=== PATIENT | female | born 1970 | race Two or more races ===

== ENCOUNTER 2020-06-29 12:42 | Outpatient (REF) | payer OTHER, SELFPAY ==
[2020-06-29 14:10] LABS: Glucose Urine UA NEG (NEG); Leukocyte Esterase Urine TRACE (NEG); Nitrite Urine NEG (NEG); Specific Gravity - Urine 1.025 (1.005-1.025); Urine Blood 2+ (NEG); Urine Ketones NEG (NEG); Urine Protein NEG (NEG-TRACE)
[2020-06-29 14:11] LABS: MANUAL DIFF FLAG NO
[2020-06-29 14:11] LABS: Appearance Urine CLEAR; Color Urine YELLOW
[2020-06-29 14:16] LABS: Basophils Percent Auto 0.5 % (0-2); Eosinophils Absolute Auto 0.2 X10*3/uL (0.0-0.4); Eosinophils Percent Auto 2.2 % (0-4); Hematocrit 37.3 % (37-47); Hemoglobin 11.5 g/dl (12.0-16.0); Imm Gran Abs Auto 0.03 X10*3/uL (0.00-0.03); Imm Gran Pct Auto 0.3 % (0.0-0.4); Lymphocytes Absolute Auto 1.3 X10*3/uL (1.2-4.9); Lymphocytes Percent Auto 14.6 % (20-40); Mean Corpuscular HGB Conc 30.8 g/dl (31.0-35.0); Mean Corpuscular Hemoglobin 26.6 pg (27.0-33.0); Mean Corpuscular Volume 86.1 fL (80-98); Mean Platelet Volume 10.4 fL (9.4-12.3); Monocytes Absolute Auto 0.4 X10*3/uL (0.1-1.2); Monocytes Percent Auto 4.6 % (2-11); Neutrophils Absolute Auto 6.8 X10*3/uL (2.0-8.3); Neutrophils Percent Auto 77.8 % (45-73); Platelet Count 412 X10*3/uL (160-400); Red Blood Count 4.33 X10*6/uL (4.20-5.50); Red Cell Distribution Width 14.6 % (11.0-16.0); White Blood Count 8.7 X10*3/uL (4.8-10.8)
[2020-06-29 14:25] LABS: Mucus Urine TRACE /LPF; Squamous Epithelial Cell Urine 1+ /LPF
[2020-06-29 14:41] LABS: Alanine Aminotransferase 20 U/L (0-31); Albumin Level 4.2 g/dL (3.5-5.0); Alkaline Phosphatase 98 U/L (39-117); Anion Gap 14 (12-20); Aspartate Amino Transferase 16 U/L (5-31); Bilirubin Total 0.4 mg/dL (0.0-1.0); Blood Urea Nitrogen 12 mg/dL (9-16); C Reactive Protein 1.34 mg/dL (< or = 0.50); Calcium 9.5 mg/dL (8.4-10.2); Carbon Dioxide 27 mmol/L (22-29); Chloride 104 mmol/L (96-108); Cholesterol 261 mg/dL; Estimated Glomerular Filt Rate > 60; Glucose Fasting 80 mg/dL (60-99); HDL Cholesterol 52 mg/dL; LDL Cholesterol Calculated 151 mg/dl; Potassium 4.7 mmol/l (3.3-5.1); Sodium 140 mmol/L (135-145); Total Protein 7.8 g/dL (6.5-8.0); Triglycerides 290 mg/dL
[2020-06-29 15:06] LABS: Vitamin D 25-OH Total 32.9 ng/mL (>30)
[2020-06-29 15:15] LABS: Erythrocyte Sedimentation Rate 41 MM/HR (0-20)
== END 2020-06-29 12:43 | disposition home or self-care (01) ==
LOC: HO.LAB 12:42
PROVIDERS: PCP Internal Medicine; Visit Provider Internal Medicine
DX: Z00.00 Encounter for general adult medical examination without abnormal findings (principal); E78.00 Pure hypercholesterolemia, unspecified; M15.9 Polyosteoarthritis, unspecified; M47.899 Other spondylosis, site unspecified; K56.600 Partial intestinal obstruction, unspecified as to cause; G43.909 Migraine, unspecified, not intractable, without status migrainosus; E55.9 Vitamin D deficiency, unspecified; E66.9 Obesity, unspecified
CPT/HCPCS: 36415; 80053; 80061; 81001; 82306; 84443; 85025; 85652; 86140; 87086

== ENCOUNTER → 2020-07-06 08:56 | Outpatient (BNVA) | payer OTHER, SELFPAY | PROVIDERS: Visit Provider Student in an Organized Health Care Education/Training Program | DX: Z76.89 Persons encountering health services in other specified circumstances (principal) ==

== ENCOUNTER 2020-07-20 09:13 | Day surgery (SDC) | payer OTHER, SELFPAY ==
[2020-07-15 11:35] VITALS: BMI 37.4
--- NOTE | 2020-07-19 09:11 | HO.ANESPROP2 ---
Documented by User: Gisela Conway 07/19/20 09:13 HPI - Anesthesia Eval Consult details Narrative: 50yo F for Upper Endoscopy PMFSH Past Medical History Medical History (Updated 07/15/20 @ 11:34 by Denise Graham) Abdominal pain Allergic rhinitis Bipolar depression HLA-B27 spondyloarthropathy Hx of small bowel obstruction Insomnia Lumbar spondylosis Migraine Mild intermittent asthma without complication Obesity (BMI 30-39.9) Osteoarthritis of multiple joints Primary osteoarthritis of right hip Pure hypercholesterolemia Vitamin D deficiency Family History Family History Father Kidney problem Diabetes Mother Kidney malignancy Diabetes Brother Asthma Diabetes Surgical History Surgical History (Updated 07/15/20 @ 11:34 by Denise Graham) History of carpal tunnel surgery History of extraction of renal calculus History of hand surgery History of hysterectomy Hx of cholecystectomy Hx of colonoscopy Hx of cystoscopy Hx of removal of ovary Hx of unilateral oophorectomy Social History Social History (Updated 07/15/20 @ 11:35 by Denise Graham) Alcohol intake: never Smoking Status: Never smoker Use of substances other than those prescribed or required for medical reasons: No Advance Directives: No Advance Directives Information Provided: No Advance Directives on File: No Meds Allergies Allergy/AdvReac Type Severity Reaction Status Date / Time Iodinated Contrast Media Allergy Intermediate HIVES Verified 07/11/20 21:41 [IV CONTRAST] peanut [PEANUTS] Allergy Intermediate HIVES Verified 07/11/20 21:41 shellfish derived Allergy Intermediate HIVES Verified 07/11/20 21:41 [SHELLFISH DERIVED] Penicillins [PENICILLINS] Allergy Unknown HIVES Verified 07/11/20 21:41 Home Medications Medication Instructions Recorded Confirmed Type albuterol sulfate 90 mcg/actuation 2 puff INHALATION Q4-6H PRN 07/06/20 07/15/20 History aerosol inhaler cetirizine 10 mg tablet 10 mg PO DAILY 07/06/20 07/15/20 History clonazepam 1 mg tablet 1 mg PO BID 07/06/20 07/15/20 History duloxetine 60 mg capsule,delayed 60 mg PO DAILY 07/06/20 07/15/20 History release fluticasone propionate 220 1 puff INHALATION BID 07/06/20 07/15/20 History mcg/actuation HFA aerosol inhaler lifitegrast 5 % eye drops in a 1 drp OPHTHALMIC (EYE) BID 07/06/20 07/15/20 History dropperette montelukast 10 mg tablet 10 mg PO DAILY 07/06/20 07/15/20 History naratriptan 2.5 mg tablet See Rx Instructions PO .COMPLEX 07/06/20 07/15/20 History travoprost 0.004 % eye drops 1 drp OPHTHALMIC (EYE) QPM 07/06/20 07/15/20 History zolpidem 10 mg tablet 10 mg PO BEDTIME PRN 07/06/20 07/15/20 History atorvastatin 20 mg tablet 20 mg PO DAILY 07/07/20 07/15/20 History famotidine 20 mg tablet 20 mg PO BID 07/07/20 07/15/20 History cholecalciferol (vitamin D3) 25 mcg PO DAILY 07/15/20 07/15/20 History [Vitamin D3] Exam Exam Date and Time: July 19, 2020 0911 Height,Weight and Vital Signs: Height 5 ft 1 in Weight 89.811 kg Pertinent Lab Results Pertinent Lab Results: Laboratory Tests 06/29/20 06/29/20 13:02 13:02 WBC 8.7 Hgb 11.5 L Hct 37.3 Plt Count 412 H Sodium 140 Potassium 4.7 Chloride 104 Carbon Dioxide 27 BUN 12 Creatinine 0.68 Assessment and Plan Assessment Anesthesia Assessment: Chart Reviewed Documented by User: Karolina Gamble 07/20/20 09:48 [facility] Past Medical History Medical History (Updated 07/15/20 @ 11:34 by Denise Graham) Abdominal pain Allergic rhinitis Bipolar depression HLA-B27 spondyloarthropathy Hx of small bowel obstruction Insomnia Lumbar spondylosis Migraine Mild intermittent asthma without complication Obesity (BMI 30-39.9) Osteoarthritis of multiple joints Primary osteoarthritis of right hip Pure hypercholesterolemia Vitamin D deficiency Family History Family History Father Kidney problem Diabetes Mother Kidney malignancy Diabetes Brother Asthma Diabetes Surgical History Surgical History (Updated 07/15/20 @ 11:34 by Denise Graham) History of carpal tunnel surgery History of extraction of renal calculus History of hand surgery History of hysterectomy Hx of cholecystectomy Hx of colonoscopy Hx of cystoscopy Hx of removal of ovary Hx of unilateral oophorectomy Social History Social History (Updated 07/15/20 @ 11:35 by Denise Graham) Alcohol intake: never Smoking Status: Never smoker Use of substances other than those prescribed or required for medical reasons: No Advance Directives: No Advance Directives Information Provided: No Advance Directives on File: No Meds Allergies Allergy/AdvReac Type Severity Reaction Status Date / Time Iodinated Contrast Media Allergy Intermediate HIVES Verified 07/11/20 21:41 [IV CONTRAST] peanut [PEANUTS] Allergy Intermediate HIVES Verified 07/11/20 21:41 shellfish derived Allergy Intermediate HIVES Verified 07/11/20 21:41 [SHELLFISH DERIVED] Penicillins [PENICILLINS] Allergy Unknown HIVES Verified 07/11/20 21:41 Home Medications Medication Instructions Recorded Confirmed Type albuterol sulfate 90 mcg/actuation 2 puff INHALATION Q4-6H PRN 07/06/20 07/15/20 History aerosol inhaler cetirizine 10 mg tablet 10 mg PO DAILY 07/06/20 07/15/20 History clonazepam 1 mg tablet 1 mg PO BID 07/06/20 07/15/20 History duloxetine 60 mg capsule,delayed 60 mg PO DAILY 07/06/20 07/15/20 History release fluticasone propionate 220 1 puff INHALATION BID 07/06/20 07/15/20 History mcg/actuation HFA aerosol inhaler lifitegrast 5 % eye drops in a 1 drp OPHTHALMIC (EYE) BID 07/06/20 07/15/20 History dropperette montelukast 10 mg tablet 10 mg PO DAILY 07/06/20 07/15/20 History naratriptan 2.5 mg tablet See Rx Instructions PO .COMPLEX 07/06/20 07/15/20 History travoprost 0.004 % eye drops 1 drp OPHTHALMIC (EYE) QPM 07/06/20 07/15/20 History zolpidem 10 mg tablet 10 mg PO BEDTIME PRN 07/06/20 07/15/20 History atorvastatin 20 mg tablet 20 mg PO DAILY 07/07/20 07/15/20 History famotidine 20 mg tablet 20 mg PO BID 07/07/20 07/15/20 History cholecalciferol (vitamin D3) 25 mcg PO DAILY 07/15/20 07/15/20 History [Vitamin D3] Exam Airway Mallampati Class: I ([place] top front) TM Dist: >3cm Neck ROM: Full Heart: RrR Lungs: CtA BL Assessment and Plan Assessment Anesthesia Assessment: Anesthesia Plan Discussed and Chart Reviewed Final Anesthetic Review NPO: Yes (Sip water with meds) ASA Class: III Final Preanesthetic Review: Meds/Allgs Chart Reviewed and Consent Obtained/Reviewed Patient Risk: Intermediate Procedure Risk: Intermediate Anesthetic Plan Anesthetic Plan: MAC: Disposition: Standard PACU
[2020-07-20 09:53] VITALS: BP 126/88; PULSE 83; RESP 16; TEMP 37.2; O2SAT 99
--- NOTE | 2020-07-20 09:56 | MHC.SHP ---
Pre-Procedural Eval Section B Chief Complaint: Abdominal Pain Details of Present Illness: 50 yo female with midepigastric pain and bilater upper abdominal pains. She states this in now worse. She is also having rectal bleeding and urgency which she DID NOT have on her 05/05-visit(nor did she call to tell me this.) Having Urology eval as well. Relevant Family History (Specify if Yes): No Relevant Social History: None Present Medications: see Short Stay Collaborative assessment Medical History: Significant History (obesity, Bipolar disorder, asthma,S/Pcervical ca-radiation treatment.) History of Previous Operations: No relevant previous surgery (not for this procedure, GB is out) Allergies: Allergies Allergy/AdvReac Type Severity Reaction Status Date / Time Iodinated Contrast Media Allergy Intermediate HIVES Verified 07/11/20 21:41 [IV CONTRAST] peanut [PEANUTS] Allergy Intermediate HIVES Verified 07/11/20 21:41 shellfish derived Allergy Intermediate HIVES Verified 07/11/20 21:41 [SHELLFISH DERIVED] Penicillins [PENICILLINS] Allergy Unknown HIVES Verified 07/11/20 21:41 Review of Systems Sugical H&P ROS: Negative: Cardiovascular and Yes, Specify: Constitution (Pain, pain), Respiratory (known asthma), Psychiatric (bipolar disorder) and Gastrointestinal Review of Systems Comment: She now says she is having daily rectal bleeding--will continue to evaluate. Exam Surgical H&P Exam: Normal: Heart and Normal: Lungs and Significant Findings: Abdomen (obesity central) Plan Diagnosis/Plan: Unchanged Patient has been examined and remains a candidate for the planned procedure yes--egd.
[2020-07-20] MEDS: Lactated Ringers 1,000 ML 100 ML IVCONT (10:01)
--- NOTE | 2020-07-20 10:24 | PM.OP ---
Brief Operative Note Date of Service: 07/20/20 Pre-op diagnosis: Abdominal pain , every day Post-op diagnosis: other (Super ficial gastritis, ? component of bile reflux.) Procedure: EGD with biopsy Implants: none Surgeon: Luiza Bella MD Anesthesia: MAC (md Tye) Estimated blood loss (mL): 5 Pathology: other (Duodenal, gastric) Condition: stable Disposition: PACU
[2020-07-20 10:25] VITALS: BP 105/63; PULSE 85; RESP 14; TEMP 37.1; O2SAT 97
[2020-07-20 10:40] VITALS: BP 123/71; PULSE 78; RESP 19; TEMP 37.1; O2SAT 97
[2020-07-20 11:04] VITALS: BP 127/71; PULSE 78; RESP 16; TEMP 36.6; O2SAT 99
--- NOTE | 2020-07-20 11:37 | HO.POSTANES ---
Post Anesthesia Evaluation Post Anesthesia Evaluation Vital Signs: Vital Signs Temp Pulse Resp BP Pulse Ox 07/20/20 11:04 98 F 78 16 127/71 99 07/20/20 10:40 98.7 F 78 19 123/71 97 07/20/20 10:25 98.7 F 85 14 105/63 97 07/20/20 09:53 99.0 F 83 16 126/88 99 Anesthesia: Monitored Mental Status: Awake Pain Control: Satisfactory Nausea/Vomiting: None Hydration: Adequate Anesthesia-Related Issues: No Anes. Related Issues
[2020-07-20 11:44] LABS: MANUAL DIFF FLAG NO
[2020-07-20 11:48] LABS: Basophils Percent Auto 0.4 % (0-2); Eosinophils Absolute Auto 0.3 X10*3/uL (0.0-0.4); Eosinophils Percent Auto 2.5 % (0-4); Hematocrit 36.7 % (37-47); Hemoglobin 11.1 g/dl (12.0-16.0); Imm Gran Abs Auto 0.04 X10*3/uL (0.00-0.03); Imm Gran Pct Auto 0.4 % (0.0-0.4); Lymphocytes Absolute Auto 1.4 X10*3/uL (1.2-4.9); Lymphocytes Percent Auto 13.3 % (20-40); Mean Corpuscular HGB Conc 30.2 g/dl (31.0-35.0); Mean Corpuscular Hemoglobin 26.4 pg (27.0-33.0); Mean Corpuscular Volume 87.4 fL (80-98); Mean Platelet Volume 10.6 fL (9.4-12.3); Monocytes Absolute Auto 0.5 X10*3/uL (0.1-1.2); Monocytes Percent Auto 4.7 % (2-11); Neutrophils Absolute Auto 8.5 X10*3/uL (2.0-8.3); Neutrophils Percent Auto 78.7 % (45-73); Platelet Count 328 X10*3/uL (160-400); Red Cell Distribution Width 14.6 % (11.0-16.0); White Blood Count 10.8 X10*3/uL (4.8-10.8)
--- NOTE | 2020-07-20 11:59 | OP_ITS ---
SURGEON: Luiza Bella MD PROCEDURE PERFORMED: EGD with biopsy; digital rectal exam. ESTIMATED BLOOD LOSS: less 5cc COMPLICATIONS: No complications. ANESTHESIA: Monitored. ANESTHESIOLOGIST: Karolina Gamble MD ASSISTANTS: No assistant printer floor covering. SPECIMENS: Specimens removed; duodenal biopsy, gastric biopsies. PREOPERATIVE DIAGNOSES: Dyspepsia, pain in the mid epigastrium and bilateral upper quadrant pain. The patient does give a change in history, complaining of urgent bowel movements, reported diarrhea, and seeing blood with the bowel movements. This started about a week after I spoke with her in April. She did not notify the office. POSTOPERATIVE DIAGNOSES: Superficial gastritis, bile present in the stomach, A digital rectal was done on this visit, as had been discussed with patient preop. INVISIBLE BRACES ORTHODONTIST: Dr. Bella. CONDITION: Postprocedure, stable. FINDINGS: Video endoscope was introduced without difficulty. It was navigated into the posterior pharynx and into the esophagus. Esophageal mucosa was normal with slight tortuosity through the distal portion of the esophagus. GE junction was visualized. It was clear and distinct. On entering the stomach, gastric aspirate did have bile present. There was generalized erythema distal body and antrum. Scope was passed into the duodenal bulb and duodenum. There was one area with focal villous changes. Biopsies were done, duodenal and gastric. At the end of the endoscopic exam, I did a digital rectal exam: Sphincter tone was decreased. There was 0 to 1+ palpable internal hemorrhoids. There was soft, but solid stool in the rectal ampulla. No evidence of blood on the glove. External inspection showed no significant changes and no external tags. CURRENT PLAN: I have ordered CBC, CRP, and chem profile. This will be reviewed. Further evaluation dependent on findings and persistent symptoms. GRAFT OR IMPLANTS: No grafts or implants. Luiza Bella MD MEN/MODL / [id number] [facility]
[2020-07-20 12:07] LABS: Alanine Aminotransferase 16 U/L (0-31); Alkaline Phosphatase 94 U/L (39-117); Anion Gap 14 (12-20); Aspartate Amino Transferase 13 U/L (5-31); Bilirubin Total 0.2 mg/dL (0.0-1.0); Blood Urea Nitrogen 14 mg/dL (9-16); C Reactive Protein 1.25 mg/dL (< or = 0.50); Calcium 8.4 mg/dL (8.4-10.2); Carbon Dioxide 24 mmol/L (22-29); Chloride 107 mmol/L (96-108); Estimated Glomerular Filt Rate > 60; Glucose Random 85 mg/dL (60-115); Potassium 4.3 mmol/l (3.3-5.1); Sodium 141 mmol/L (135-145); Total Protein 7.1 g/dL (6.5-8.0)
== END 2020-07-20 11:43 | disposition home or self-care (01) ==
PROVIDERS: PCP Internal Medicine; Visit Provider Internal Medicine Gastroenterology
PROC: 0DJ08ZZ Inspection of Upper Intestinal Tract, Via Natural or Artificial Opening Endoscopic (ICD-10-PCS; CPT 43235; principal; 2020-07-20 10:40)
DX: K29.30 Chronic superficial gastritis without bleeding (principal); K62.5 Hemorrhage of anus and rectum; K64.8 Other hemorrhoids; Z85.41 Personal history of malignant neoplasm of cervix uteri; Z90.710 Acquired absence of both cervix and uterus; Z88.0 Allergy status to penicillin
CPT/HCPCS: 43239; 36415; 80053; 85025; 86140; 88305; 88342

== ENCOUNTER → 2020-08-16 10:31 | Outpatient (BNVA) | payer OTHER, SELFPAY | PROVIDERS: PCP Internal Medicine; Visit Provider Internal Medicine Gastroenterology | DX: Z76.89 Persons encountering health services in other specified circumstances (principal) ==

== ENCOUNTER 2020-08-17 14:21 | Outpatient (REF) | payer OTHER, SELFPAY ==
[2020-08-17 15:14] LABS: MANUAL DIFF FLAG NO
[2020-08-17 15:20] LABS: Basophils Percent Auto 0.4 % (0-2); Eosinophils Absolute Auto 0.2 X10*3/uL (0.0-0.4); Eosinophils Percent Auto 2.6 % (0-4); Hematocrit 38.7 % (37-47); Hemoglobin 11.8 g/dl (12.0-16.0); Imm Gran Abs Auto 0.05 X10*3/uL (0.00-0.03); Imm Gran Pct Auto 0.5 % (0.0-0.4); Lymphocytes Absolute Auto 1.5 X10*3/uL (1.2-4.9); Lymphocytes Percent Auto 16.2 % (20-40); Mean Corpuscular HGB Conc 30.5 g/dl (31.0-35.0); Mean Corpuscular Hemoglobin 26.2 pg (27.0-33.0); Monocytes Absolute Auto 0.5 X10*3/uL (0.1-1.2); Monocytes Percent Auto 5.1 % (2-11); Neutrophils Absolute Auto 7.1 X10*3/uL (2.0-8.3); Neutrophils Percent Auto 75.2 % (45-73); Platelet Count 404 X10*3/uL (160-400); Red Cell Distribution Width 14.6 % (11.0-16.0); White Blood Count 9.4 X10*3/uL (4.8-10.8)
[2020-08-17 15:42] LABS: Alanine Aminotransferase 16 U/L (0-31); Albumin Level 4.4 g/dL (3.5-5.0); Alkaline Phosphatase 98 U/L (39-117); Anion Gap 14 (12-20); Aspartate Amino Transferase 11 U/L (5-31); Bilirubin Total 0.3 mg/dL (0.0-1.0); Blood Urea Nitrogen 14 mg/dL (9-16); Calcium 9.4 mg/dL (8.4-10.2); Carbon Dioxide 25 mmol/L (22-29); Chloride 105 mmol/L (96-108); Estimated Glomerular Filt Rate > 60; Glucose Random 79 mg/dL (60-115); Potassium 4.2 mmol/l (3.3-5.1); Sodium 140 mmol/L (135-145); Total Protein 7.8 g/dL (6.5-8.0)
[2020-08-17 16:05] LABS: Ferritin 28 ng/mL (10-250)
== END 2020-08-17 14:22 | disposition home or self-care (01) ==
LOC: HO.LAB 14:21
PROVIDERS: PCP Internal Medicine; Visit Provider Internal Medicine Gastroenterology
DX: R10.9 Unspecified abdominal pain (principal)
CPT/HCPCS: 36415; 80053; 82728; 85025; 86140

== ENCOUNTER 2020-09-28 15:02 | Outpatient (REF) | payer OTHER, SELFPAY ==
[2020-09-29 11:28] LABS: CDIFF Ag Negative (Negative); CDIFF Internal ctrl Dots and bkg OK (V); CDiff Toxin Negative (Negative)
== END 2020-09-28 15:03 | disposition home or self-care (01) ==
LOC: HO.LNP 15:02
PROVIDERS: Visit Provider Internal Medicine Gastroenterology
DX: R10.9 Unspecified abdominal pain (principal)
CPT/HCPCS: 87324; 87449

== ENCOUNTER 2020-10-12 13:09 | Outpatient (REF) | payer OTHER, SELFPAY ==
[2020-10-12 15:07] LABS: Alanine Aminotransferase 18 U/L (0-31); Albumin Level 4.2 g/dL (3.5-5.0); Alkaline Phosphatase 96 U/L (39-117); Anion Gap 14 (12-20); Aspartate Amino Transferase 15 U/L (5-31); Bilirubin Total 0.4 mg/dL (0.0-1.0); Blood Urea Nitrogen 14 mg/dL (9-16); Calcium 9.7 mg/dL (8.4-10.2); Carbon Dioxide 25 mmol/L (22-29); Chloride 108 mmol/L (96-108); Cholesterol 253 mg/dL; Estimated Glomerular Filt Rate > 60; Glucose Fasting 82 mg/dL (60-99); HDL Cholesterol 52 mg/dL; LDL Cholesterol Calculated 160 mg/dl; Potassium 4.5 mmol/L (3.3-5.1); Sodium 142 mmol/L (135-145); Total Protein 7.6 g/dL (6.5-8.0); Triglycerides 208 mg/dL
== END 2020-10-12 13:10 | disposition home or self-care (01) ==
LOC: HO.CT 13:09
PROVIDERS: Absent Provider Internal Medicine; PCP Internal Medicine; Visit Provider Internal Medicine Gastroenterology
DX: R10.9 Unspecified abdominal pain (principal); E78.00 Pure hypercholesterolemia, unspecified
CPT/HCPCS: 36415; 80053; 80061

== ENCOUNTER → 2020-12-22 13:19 | Outpatient (BNVA) | payer OTHER, SELFPAY | PROVIDERS: PCP Internal Medicine; Referring Provider Internal Medicine; Visit Provider Nurse Practitioner Family | DX: R19.7 Diarrhea, unspecified (principal); K29.30 Chronic superficial gastritis without bleeding; R10.9 Unspecified abdominal pain | CPT/HCPCS: 99212 ==

== ENCOUNTER 2020-12-27 08:46 | Outpatient (REF) | payer OTHER, SELFPAY ==
--- NOTE | ~2020-12-27 | CT_ITS ---
EXAMINATION: CT ABDOMEN AND PELVIS WITHOUT CONTRAST CLINICAL INFORMATION: Abdominal pain COMPARISON: Previous MR of the pelvis August [address] of the abdomen and pelvis most recent August 2013 TECHNIQUE: Multidetector volumetric imaging was performed from the superior aspect of the liver through the pubic symphysis. Sagittal and coronal reformatted images were obtained on the technologist's workstation. This CT examination was performed using dose optimization techniques as appropriate, variously including the following: *Automated exposure control *Adjustment of mA and/or kV according to patient size (this includes techniques or standardized protocols for targeted exams where dose is matched to indication/reason for exam; i.e. extremities or head) *Use of iterative reconstruction technique DLP: 555 mGy-cm FINDINGS: LUNG BASES: The visualized lung bases are unremarkable. LIVER, GALLBLADDER, AND BILIARY TREE: The liver is normal in size, shape, and attenuation. No focal hepatic lesion or biliary ductal dilatation is present. The gallbladder has been removed. PANCREAS: Unremarkable. SPLEEN: Unremarkable. ADRENAL GLANDS: Unremarkable. KIDNEYS AND URETERS: There are 3 small stones in the lower pole of the right kidney, largest measuring 3 mm. There is a 7 mm low-attenuation lesion in the lower pole right kidney axial image 39 series 3 is similar to previous exam probably represents a cyst. There is new moderate left hydronephrosis and left ureteral dilatation. The left ureter is dilated to the lower sacrum. No stone is seen. The left ureter distal to this region do not appear dilated. BLADDER: The bladder is empty. There may be wall thickening of the bladder. GASTROINTESTINAL TRACT: There is stool throughout the colon suggestive of constipation. There is question of mild wall thickening of the sigmoid colon and rectum. There is no evidence of obstruction. Small and large bowel is otherwise unremarkable. The appendix is unremarkable. The stomach is unremarkable. ABDOMINAL WALL: There are postsurgical changes to the anterior abdominal wall. No hernia is seen. LYMPH NODES: There are in enlarged left inguinal lymph nodes. Largest left inguinal lymph node measures 1.5 cm. There is unchanged from previous exam from 2014 There are small right inguinal lymph nodes. There are surgical clips in the bilateral pelvis suggestive of previous lymph node dissection. VASCULAR: There is evidence of atherosclerotic disease. No aneurysm is seen. PELVIC VISCERA: Uterus has been removed. The ovaries are not seen. No pelvic mass is seen. OSSEOUS STRUCTURES: There are degenerative changes of the spine and hip joints. There is loss of height of the T10 and T11 T11 vertebral bodies are stable for mild old compression fractures. CT/CT abdomen pelvis wo con IMPRESSION: New moderate left hydronephrosis and left ureteral dilatation to the level of the inferior sacrum. No stone seen. Small nonobstructing right renal stones. Constipation. Question mild wall thickening of the sigmoid colon and rectum. Question wall thickening of the bladder. Slightly enlarged left inguinal lymph nodes similar to 2014 CT scan..
== END 2020-12-27 08:47 | disposition home or self-care (01) ==
LOC: HO.CT 08:46
PROVIDERS: PCP Internal Medicine; Visit Provider Internal Medicine Gastroenterology
DX: R10.9 Unspecified abdominal pain (principal)
CPT/HCPCS: 74176

== ENCOUNTER 2021-01-06 14:19 | Outpatient (REF) | payer OTHER, SELFPAY ==
--- NOTE | ~2021-01-06 | XR_ITS ---
EXAMINATION: XR LUMBOSACRAL SPINE CLINICAL INFORMATION: Low back pain. COMPARISON: CT scan of the abdomen and pelvis dated 12/27/2020. TECHNIQUE: Three views of the lumbosacral spine. FINDINGS: Mild multilevel degenerative disc disease is seen. There is a grade 1 anterolisthesis of L4 over L5. Mild to moderate bilateral facet arthropathy seen at L4-5 and L5-S1. Mild anterior compression deformities are seen from T10 to T12. The soft tissues are unremarkable. XR/XR lumbar spine 2-3V IMPRESSION: 1. Mild multilevel degenerative changes and L4-5 grade 1 anterolisthesis is similar to the CT scan. No acute abnormality. 2. Mild superior endplate compression deformities from T10 to T12 do not demonstrate acute features.
[2021-01-06 15:38] LABS: MANUAL DIFF FLAG NO
[2021-01-06 15:46] LABS: Basophils Absolute Auto 0.1 X10*3/uL (0.0-0.2); Basophils Percent Auto 0.6 % (0-2); Eosinophils Absolute Auto 0.2 X10*3/uL (0.0-0.4); Eosinophils Percent Auto 1.9 % (0-4); Hemoglobin 11.3 g/dl (12.0-16.0); Imm Gran Abs Auto 0.03 X10*3/uL (0.00-0.03); Imm Gran Pct Auto 0.3 % (0.0-0.4); Lymphocytes Absolute Auto 1.3 X10*3/uL (1.2-4.9); Lymphocytes Percent Auto 12.3 % (20-40); Mean Corpuscular HGB Conc 30.5 g/dl (31.0-35.0); Mean Corpuscular Hemoglobin 26.2 pg (27.0-33.0); Mean Corpuscular Volume 85.8 fL (80-98); Monocytes Absolute Auto 0.5 X10*3/uL (0.1-1.2); Monocytes Percent Auto 4.4 % (2-11); Neutrophils Absolute Auto 8.7 X10*3/uL (2.0-8.3); Neutrophils Percent Auto 80.5 % (45-73); Platelet Count 333 X10*3/uL (160-400); Red Blood Count 4.31 X10*6/uL (4.20-5.50); Red Cell Distribution Width 14.6 % (11.0-16.0); White Blood Count 10.8 X10*3/uL (4.8-10.8)
[2021-01-06 16:15] LABS: Alanine Aminotransferase 20 U/L (0-31); Albumin Level 4.3 g/dL (3.5-5.0); Alkaline Phosphatase 94 U/L (39-117); Anion Gap 13 (12-20); Aspartate Amino Transferase 15 U/L (5-31); Bilirubin Total 0.6 mg/dL (0.0-1.0); Blood Urea Nitrogen 11 mg/dL (9-16); C Reactive Protein 1.68 mg/dL (< or = 0.50); Calcium 9.5 mg/dL (8.4-10.2); Carbon Dioxide 26 mmol/L (22-29); Chloride 107 mmol/L (96-108); Estimated Glomerular Filt Rate > 60; Glucose Random 88 mg/dL (60-115); Potassium 4.2 mmol/L (3.3-5.1); Sodium 142 mmol/L (135-145); Total Protein 7.6 g/dL (6.5-8.0)
[2021-01-06 16:44] LABS: Erythrocyte Sedimentation Rate 46 MM/HR (0-20)
== END 2021-01-06 14:20 | disposition home or self-care (01) ==
LOC: HO.XRAY 14:19
PROVIDERS: PCP Internal Medicine; Visit Provider Student in an Organized Health Care Education/Training Program
DX: M47.816 Spondylosis without myelopathy or radiculopathy, lumbar region (principal); Z79.899 Other long term (current) drug therapy
CPT/HCPCS: 36415; 72100; 80053; 85025; 85652; 86140; 99212

== ENCOUNTER 2021-03-02 11:43 | Outpatient (REF) | payer OTHER, SELFPAY ==
[2021-03-02 12:44] LABS: MANUAL DIFF FLAG NO
[2021-03-02 12:50] LABS: Glucose Urine UA NEG (NEG); Leukocyte Esterase Urine 1+ (NEG); Nitrite Urine NEG (NEG); PH 6.5 (5.0-8.0); UACC Culture Trigger YES; Urine Blood NEG (NEG); Urine Ketones NEG (NEG); Urine Protein NEG (NEG-TRACE)
[2021-03-02 12:52] LABS: Appearance Urine CLEAR; Color Urine YELLOW
[2021-03-02 12:56] LABS: Basophils Absolute Auto 0.1 X10*3/uL (0.0-0.2); Basophils Percent Auto 0.6 % (0-2); Eosinophils Absolute Auto 0.2 X10*3/uL (0.0-0.4); Eosinophils Percent Auto 2.8 % (0-4); Hematocrit 39.1 % (37-47); Hemoglobin 11.8 g/dl (12.0-16.0); Imm Gran Abs Auto 0.04 X10*3/uL (0.00-0.03); Imm Gran Pct Auto 0.5 % (0.0-0.4); Lymphocytes Absolute Auto 1.3 X10*3/uL (1.2-4.9); Mean Corpuscular HGB Conc 30.2 g/dl (31.0-35.0); Mean Corpuscular Hemoglobin 26.3 pg (27.0-33.0); Mean Corpuscular Volume 87.3 fL (80-98); Monocytes Absolute Auto 0.4 X10*3/uL (0.1-1.2); Monocytes Percent Auto 5.3 % (2-11); Neutrophils Absolute Auto 6.2 X10*3/uL (2.0-8.3); Neutrophils Percent Auto 74.8 % (45-73); Platelet Count 405 X10*3/uL (160-400); Red Blood Count 4.48 X10*6/uL (4.20-5.50); Red Cell Distribution Width 15.1 % (11.0-16.0); White Blood Count 8.3 X10*3/uL (4.8-10.8)
[2021-03-02 13:22] LABS: RBC Urine 0 /HPF (0); Squamous Epithelial Cell Urine 1+ /LPF; WBC Urine 0 /HPF (0-4)
[2021-03-02 13:25] LABS: Alanine Aminotransferase 17 U/L (0-31); Albumin Level 4.3 g/dL (3.5-5.0); Alkaline Phosphatase 107 U/L (39-117); Anion Gap 14 (12-20); Aspartate Amino Transferase 15 U/L (5-31); Bilirubin Total 0.6 mg/dL (0.0-1.0); Blood Urea Nitrogen 11 mg/dL (9-16); Calcium 9.8 mg/dL (8.4-10.2); Carbon Dioxide 25 mmol/L (22-29); Chloride 107 mmol/L (96-108); Cholesterol 188 mg/dL; Estimated Glomerular Filt Rate > 60; Glucose Fasting 87 mg/dL (60-99); HDL Cholesterol 49 mg/dL; LDL Cholesterol Calculated 93 mg/dl; Potassium 4.7 mmol/L (3.3-5.1); Sodium 141 mmol/L (135-145); Total Protein 7.7 g/dL (6.5-8.0); Triglycerides 232 mg/dL
[2021-03-02 13:39] LABS: TSH reflex Free T4 1.74 uIU/mL (0.32-4.0)
[2021-03-02 13:46] LABS: Erythrocyte Sedimentation Rate 32 MM/HR (0-20)
== END 2021-03-02 11:44 | disposition home or self-care (01) ==
LOC: HO.LAB 11:43
PROVIDERS: Absent Provider Internal Medicine; PCP Internal Medicine; Visit Provider Dentist Pediatric Dentistry
DX: E78.00 Pure hypercholesterolemia, unspecified (principal); M79.7 Fibromyalgia; E66.9 Obesity, unspecified
CPT/HCPCS: 36415; 80053; 80061; 81001; 84443; 85025; 85652; 87086

== ENCOUNTER → 2021-03-07 13:50 | Outpatient (BNVA) | payer OTHER, SELFPAY | PROVIDERS: PCP Internal Medicine; Referring Provider Internal Medicine; Visit Provider Nurse Practitioner Family | DX: K29.30 Chronic superficial gastritis without bleeding (principal); R19.7 Diarrhea, unspecified; R10.9 Unspecified abdominal pain | CPT/HCPCS: 99212 ==

== ENCOUNTER 2021-03-08 12:52 | Outpatient (REF) | payer OTHER, SELFPAY ==
--- NOTE | ~2021-03-08 | XR_ITS ---
EXAMINATION: XR THORACOLUMBAR SPINE CLINICAL INFORMATION: Wedge compression fracture. COMPARISON: MRI thoracic spine of 10/31/2017 and thoracic spine of 07/13/2016. TECHNIQUE: 3 views of the thoracic spine. FINDINGS: There is mild scoliosis of the thoracic spine convex left. There is some mild wedging without significant loss of height involving the T7, T9, and T10 vertebral bodies. Multilevel spurring is present, most prominent along the right lateral aspect within the mid and lower thoracic spine with some regions of bridging T5-T12. No significant abnormal paraspinal bulge is seen. Pedicles appear intact. XR/XR thoracic spine 2V IMPRESSION: Degenerative change of the thoracic spine as described which is similar to previous examination of 07/13/2016 with no definite new fracture appreciated.
== END 2021-03-08 12:53 | disposition home or self-care (01) ==
LOC: HO.XRAY 12:52
PROVIDERS: PCP Internal Medicine; Visit Provider Nurse Practitioner Family
DX: S22.000A Wedge compression fracture of unspecified thoracic vertebra, initial encounter for closed fracture (principal); M47.816 Spondylosis without myelopathy or radiculopathy, lumbar region
CPT/HCPCS: 72070; 99212

== ENCOUNTER 2021-03-16 06:05 | Outpatient (REF) | payer OTHER, SELFPAY ==
--- NOTE | ~2021-03-16 | XR_ITS ---
EXAMINATION: XR HAND, RIGHT CLINICAL INFORMATION: Right hand pain. COMPARISON: None TECHNIQUE: PA, lateral, and oblique views of the right hand. FINDINGS: Mild distal interphalangeal degenerative joint changes are seen. There is no acute fracture or dislocation. The joint spaces are unremarkable. Mild soft tissue swelling is seen in the second and third digits. No radiopaque foreign body. XR/XR hand RT min 3V IMPRESSION: Possible mild third digit distal interphalangeal osteoarthritis without definitive acute osseous abnormality. Mild soft tissue swelling in the second and third digits appears more pronounced compared to the other digits. Correlate with physical exam.
== END 2021-03-16 06:06 | disposition home or self-care (01) ==
LOC: HO.HOSX 06:05
PROVIDERS: Visit Provider Physician Assistant
DX: M65.331 Trigger finger, right middle finger (principal)
CPT/HCPCS: 20550; 20600; 73130; 99212; J1020

== ENCOUNTER → 2021-04-15 15:14 | Outpatient (BNVA) | payer OTHER, SELFPAY | PROVIDERS: PCP Internal Medicine; Referring Provider Internal Medicine; Visit Provider Nurse Practitioner Family | DX: K29.30 Chronic superficial gastritis without bleeding (principal); R10.9 Unspecified abdominal pain; R19.7 Diarrhea, unspecified | CPT/HCPCS: 99212 ==

== ENCOUNTER 2021-05-03 06:49 | Outpatient (REF) | payer OTHER, SELFPAY ==
--- NOTE | ~2021-05-03 | FL_ITS ---
EXAMINATION: XR FLUOROSCOPY WITH IMAGES CLINICAL INFORMATION: M47.816 - Spondylosis without myelopathy or radiculopathy COMPARISON: Lumbar radiographs 01/06/2021 TECHNIQUE: Fluoroscopy performed by Dr. Nicolás Thomas. Fluoroscopy time: 0.6 minutes DAP: 823 Gycm2 Images: 6 FINDINGS: There are spinal needles overlying the bilateral outer L3, L4, and L5 neural foramen. There is contrast seen in the respective nerve sheaths. Some early transforaminal epidural extension is suggested. No visible vascular communication. There are some scattered surgical clips again seen overlying the pelvis. Degenerative spurring present lumbar spine. FL/FL guidance in treatment room IMPRESSION: Fluoroscopy for pain management procedures.
== END 2021-05-03 06:50 | disposition home or self-care (01) ==
LOC: HO.RADIR 06:49
PROVIDERS: Visit Provider Anesthesiology
DX: M47.816 Spondylosis without myelopathy or radiculopathy, lumbar region (principal); S22.000D Wedge compression fracture of unspecified thoracic vertebra, subsequent encounter for fracture with routine healing
CPT/HCPCS: 64493; 64494; 64495; Q9967

== ENCOUNTER → 2021-05-11 12:54 | Outpatient (BNVA) | payer OTHER, SELFPAY | PROVIDERS: PCP Internal Medicine; Visit Provider Nurse Practitioner Family | DX: S22.000D Wedge compression fracture of unspecified thoracic vertebra, subsequent encounter for fracture with routine healing (principal); M47.816 Spondylosis without myelopathy or radiculopathy, lumbar region | CPT/HCPCS: 99212 ==

== ENCOUNTER 2021-06-25 10:27 | Outpatient (REF) | payer OTHER, SELFPAY ==
[2021-06-25 10:33] LABS: MANUAL DIFF FLAG NO
[2021-06-25 11:18] LABS: Appearance Urine HAZY; Color Urine YELLOW; Glucose Urine UA NEG (NEG); Leukocyte Esterase Urine TRACE (NEG); Nitrite Urine NEG (NEG); Specific Gravity - Urine >= 1.030 (1.005-1.025); UACC Culture Trigger YES; Urine Blood NEG (NEG); Urine Ketones NEG (NEG); Urine Protein NEG (NEG-TRACE)
[2021-06-25 11:19] LABS: Basophils Absolute Auto 0.1 X10*3/uL (0.0-0.2); Basophils Percent Auto 0.6 % (0-2); Eosinophils Absolute Auto 0.2 X10*3/uL (0.0-0.4); Eosinophils Percent Auto 2.4 % (0-4); Hematocrit 38.7 % (37.0-47.0); Hemoglobin 11.7 g/dl (12.0-16.0); Imm Gran Abs Auto 0.03 X10*3/uL (0.00-0.03); Imm Gran Pct Auto 0.3 % (0.0-0.4); Lymphocytes Absolute Auto 1.3 X10*3/uL (1.2-4.9); Lymphocytes Percent Auto 14.2 % (20-40); Mean Corpuscular HGB Conc 30.2 g/dl (31.0-35.0); Mean Corpuscular Hemoglobin 26.2 pg (27.0-33.0); Mean Corpuscular Volume 86.8 fL (80.0-98.0); Mean Platelet Volume 10.4 fL (9.4-12.3); Monocytes Absolute Auto 0.4 X10*3/uL (0.1-1.2); Neutrophils Absolute Auto 7.1 x10*3/uL (2.0-8.3); Neutrophils Percent Auto 78.5 % (45-73); Platelet Count 386 X10*3/uL (160-400); Red Blood Count 4.46 X10*6/uL (4.20-5.50); Red Cell Distribution Width 14.6 % (11.0-16.0)
[2021-06-25 11:26] LABS: Mucus Urine 3+ /LPF; RBC Urine 0 /HPF (0); Squamous Epithelial Cell Urine 1+ /LPF; Urine Talc Crystals 1+ /LPF
[2021-06-25 11:29] LABS: Estimated Average Glucose 114 mg/dL; Hemoglobin A1c % 5.6 %
[2021-06-25 11:33] LABS: Creatinine Urine 211.29 mg/dL; Microalbum/Creatinine Ratio Ur 9.9 ug/mg cr
[2021-06-25 11:54] LABS: Alanine Aminotransferase 17 U/L (0-31); Albumin Level 4.1 g/dL (3.5-5.0); Alkaline Phosphatase 94 U/L (39-117); Anion Gap 12 (12-20); Aspartate Amino Transferase 12 U/L (5-31); Bilirubin Total 0.4 mg/dL (0.0-1.0); Blood Urea Nitrogen 10 mg/dL (9-16); Calcium 9.2 mg/dL (8.4-10.2); Carbon Dioxide 24 mmol/L (22-29); Chloride 109 mmol/L (96-108); Cholesterol 212 mg/dL; Estimated Glomerular Filt Rate > 60; Glucose Fasting 84 mg/dL (60-99); HDL Cholesterol 45 mg/dL; LDL Cholesterol Calculated 137 mg/dl; Potassium 4.4 mmol/L (3.3-5.1); Sodium 141 mmol/L (135-145); Total Protein 7.2 g/dL (6.5-8.0); Triglycerides 151 mg/dL
[2021-06-25 12:16] LABS: TSH reflex Free T4 2.19 uIU/mL (0.32-4.0); Vitamin D 25-OH Total 27.8 ng/mL (>30)
== END 2021-06-25 10:28 | disposition home or self-care (01) ==
LOC: HO.LAB 10:27
PROVIDERS: PCP Internal Medicine; Visit Provider Internal Medicine
DX: E78.00 Pure hypercholesterolemia, unspecified (principal); E55.9 Vitamin D deficiency, unspecified; E11.9 Type 2 diabetes mellitus without complications; I10 Essential (primary) hypertension
CPT/HCPCS: 36415; 80053; 80061; 81001; 81003; 82043; 82306; 83036; 84443; 85025; 87086; 87147

== ENCOUNTER → 2021-07-12 14:08 | Outpatient (BNVA) | payer OTHER, SELFPAY | PROVIDERS: PCP Internal Medicine; Visit Provider Nurse Practitioner Family | DX: M47.816 Spondylosis without myelopathy or radiculopathy, lumbar region (principal) | CPT/HCPCS: 99212 ==

== ENCOUNTER 2021-07-18 16:08 | Outpatient (REF) | payer OTHER, SELFPAY | END 2021-07-18 16:09 | disposition home or self-care (01) | LOC: HO.LNP 16:08 | PROVIDERS: Visit Provider Nurse Practitioner Family | DX: K21.9 Gastro-esophageal reflux disease without esophagitis (principal) | CPT/HCPCS: 87338 ==

== ENCOUNTER → 2021-08-02 15:43 | Outpatient (BNVA) | payer OTHER, SELFPAY | PROVIDERS: PCP Internal Medicine; Referring Provider Internal Medicine; Visit Provider Nurse Practitioner Family | DX: K21.9 Gastro-esophageal reflux disease without esophagitis (principal); R10.9 Unspecified abdominal pain; R19.7 Diarrhea, unspecified | CPT/HCPCS: 99212 ==

== ENCOUNTER 2021-08-25 10:11 | Day surgery (SDC) | payer OTHER, SELFPAY ==
[2021-08-18 15:25] VITALS: BMI 38.7
--- NOTE | 2021-08-24 11:07 | HO.ANESPROP2 ---
Documented by User: Gisela Conway NP 08/24/21 11:09 HPI - Anesthesia Eval Consult details Narrative: 51yo F for Bilateral L3-L4-DR L5 Medial Branches Radiofrequency AB PMFSH Active Problems Active Problems: All Active Problems (Updated 06/29/21 @ 15:24 by Christ Goodwin MD) Ingrown toenail of both feet (Acute) Right ear pain (Acute) Annual physical exam (Acute) Trigger finger, right middle finger (Acute) Compression fracture of body of thoracic vertebra (Acute) Right sciatic nerve pain (Acute) Gastritis (Acute) Fibromyalgia (Acute) Abdominal pain (Acute) Obesity (BMI 30-39.9) (Acute) Bipolar depression (Acute) Insomnia (Acute) HLA-B27 spondyloarthropathy (Acute) Osteoarthritis of multiple joints (Acute) Vitamin D deficiency (Acute) Migraine (Acute) Allergic rhinitis (Acute) Mild intermittent asthma without complication (Acute) Pure hypercholesterolemia (Acute) Primary osteoarthritis of right hip (Acute) Lumbar spondylosis (Acute) Past Medical History Medical History Abdominal pain Allergic rhinitis Bipolar depression Fibromyalgia Gastritis HLA-B27 spondyloarthropathy Hx of small bowel obstruction Insomnia Lumbar spondylosis Migraine Mild intermittent asthma without complication Obesity (BMI 30-39.9) Osteoarthritis of multiple joints Primary osteoarthritis of right hip Pure hypercholesterolemia Vitamin D deficiency Family History Family History Father Kidney problem Diabetes Mother Kidney malignancy Diabetes Brother Asthma Diabetes Surgical History Surgical History History of carpal tunnel surgery History of esophagogastroduodenoscopy (EGD) History of extraction of renal calculus History of hand surgery History of hysterectomy Hx of cholecystectomy Hx of colonoscopy Hx of cystoscopy Hx of removal of ovary Hx of unilateral oophorectomy S/P cystourethroscopy with dilation of urethral stricture (~07/21/20) Social History Social History Housing: House Alcohol intake: never Patient Tobacco Use Status: Never used Tobacco e-Cigarette/Vaping Use: Never Used Second Hand Smoke Exposure: Yes Have you been hit, kicked, punched, or otherwise hurt by someone within the past year? If so, by whom?: No Are you DNR?: No Advance Directives: No Advance Directives Information Provided: Yes Advance Directives on File: No Patient : No service: No Current occupational status: disabled Meds Allergies Allergy/AdvReac Type Severity Reaction Status Date / Time Penicillins [PENICILLINS] Allergy Severe HIVES Verified 08/25/21 10:24 Iodinated Contrast Media Allergy Intermediate HIVES Verified 08/25/21 10:24 [IV CONTRAST] peanut [PEANUTS] Allergy Intermediate HIVES Verified 08/25/21 10:24 shellfish derived Allergy Intermediate HIVES Verified 08/25/21 10:24 [SHELLFISH DERIVED] cat dander Allergy Mild unknown Verified 08/25/21 10:24 dog dander Allergy Mild unknown Verified 08/25/21 10:24 pollen extracts Allergy Mild runny Verified 08/25/21 10:24 nose, itchy eyes Home Medications Medication Instructions Recorded Confirmed Last Taken Type cetirizine 10 mg tablet (Zyrtec) 10 mg PO DAILY 07/06/20 08/18/21 Unknown History clonazepam 1 mg tablet (Klonopin) 1 mg PO BID 07/06/20 08/18/21 08/25/21 05:00 History montelukast 10 mg tablet 10 mg PO DAILY 07/06/20 08/18/21 Unknown History (Singulair) naratriptan 2.5 mg tablet See Rx Instructions PO .COMPLEX 07/06/20 08/18/21 Unknown History travoprost 0.004 % eye drops 1 drp OPHTHALMIC (EYE) QPM 07/06/20 08/18/21 Unknown History (Travatan Z) zolpidem 10 mg tablet (Ambien) 10 mg PO BEDTIME PRN 07/06/20 08/18/21 Unknown History cyclosporine 0.05 % eye drops in a 1 drp OPHTHALMIC (EYE) Q12H 01/06/21 08/18/21 Unknown History dropperette (Restasis) omalizumab 150 mg subcutaneous 150 mg SUBCUT Q4W ea 03/08/21 08/18/21 Unknown History solution (Xolair) Exam Exam Date and Time: August 24, 2021 1107 Height,Weight and Vital Signs: Height 5 ft Weight 89.811 kg Pertinent Lab Results Pertinent Lab Results: Laboratory Tests 11/20/21 11/20/21 10:32 10:32 WBC 9.0 Hgb 11.7 L Hct 38.7 Plt Count 386 Sodium 141 Potassium 4.4 Chloride 109 H Carbon Dioxide 24 BUN 10 Creatinine 0.69 Assessment and Plan Assessment Anesthesia Assessment: Chart Reviewed Documented by User: Sonia Bloom MD 08/25/21 11:05 PMF Past Medical History Medical History Abdominal pain Allergic rhinitis Bipolar depression Fibromyalgia Gastritis HLA-B27 spondyloarthropathy Hx of small bowel obstruction Insomnia Lumbar spondylosis Migraine Mild intermittent asthma without complication Obesity (BMI 30-39.9) Osteoarthritis of multiple joints Primary osteoarthritis of right hip Pure hypercholesterolemia Vitamin D deficiency Functional capacity: independent ambulation Patient : No Family History Family History Father Kidney problem Diabetes Mother Kidney malignancy Diabetes Brother Asthma Diabetes Family history of problems with anesthesia: No Surgical History Surgical History History of carpal tunnel surgery History of esophagogastroduodenoscopy (EGD) History of extraction of renal calculus History of hand surgery History of hysterectomy Hx of cholecystectomy Hx of colonoscopy Hx of cystoscopy Hx of removal of ovary Hx of unilateral oophorectomy S/P cystourethroscopy with dilation of urethral stricture (~07/21/20) History of Problems with Anesthesia: No Social History Social History Housing: House Alcohol intake: never Patient Tobacco Use Status: Never used Tobacco e-Cigarette/Vaping Use: Never Used Second Hand Smoke Exposure: Yes Have you been hit, kicked, punched, or otherwise hurt by someone within the past year? If so, by whom?: No Are you DNR?: No Advance Directives: No Advance Directives Information Provided: Yes Advance Directives on File: No Patient : No service: No Current occupational status: disabled Meds Allergies Allergy/AdvReac Type Severity Reaction Status Date / Time Penicillins [PENICILLINS] Allergy Severe HIVES Verified 08/25/21 10:24 Iodinated Contrast Media Allergy Intermediate HIVES Verified 08/25/21 10:24 [IV CONTRAST] peanut [PEANUTS] Allergy Intermediate HIVES Verified 08/25/21 10:24 shellfish derived Allergy Intermediate HIVES Verified 08/25/21 10:24 [SHELLFISH DERIVED] cat dander Allergy Mild unknown Verified 08/25/21 10:24 dog dander Allergy Mild unknown Verified 08/25/21 10:24 pollen extracts Allergy Mild runny Verified 08/25/21 10:24 nose, itchy eyes Home Medications Medication Instructions Recorded Confirmed Last Taken Type cetirizine 10 mg tablet (Zyrtec) 10 mg PO DAILY 07/06/20 08/18/21 Unknown History clonazepam 1 mg tablet (Klonopin) 1 mg PO BID 07/06/20 08/18/21 08/25/21 05:00 History montelukast 10 mg tablet 10 mg PO DAILY 07/06/20 08/18/21 Unknown History (Singulair) naratriptan 2.5 mg tablet See Rx Instructions PO .COMPLEX 07/06/20 08/18/21 Unknown History travoprost 0.004 % eye drops 1 drp OPHTHALMIC (EYE) QPM 07/06/20 08/18/21 Unknown History (Travatan Z) zolpidem 10 mg tablet (Ambien) 10 mg PO BEDTIME PRN 07/06/20 08/18/21 Unknown History cyclosporine 0.05 % eye drops in a 1 drp OPHTHALMIC (EYE) Q12H 01/06/21 08/18/21 Unknown History dropperette (Restasis) omalizumab 150 mg subcutaneous 150 mg SUBCUT Q4W ea 03/08/21 08/18/21 Unknown History solution (Xolair) Exam Airway Mallampati Class: II TM Dist: >3cm Neck ROM: Full Heart: RRR Lungs: CTA Assessment and Plan Final Anesthetic Review Family History of Problems with Anesthesia: No History of Problems with Anesthesia: No NPO: Yes ASA Class: III Final Preanesthetic Review: No Changes in Pt Med Stat, Meds/Allgs Chart Reviewed, Consent Obtained/Reviewed and Anes Risks/Benef Reviewed Patient Risk: Low Procedure Risk: Low Anesthetic Plan Anesthetic Plan: MAC: Disposition: Standard PACU
--- NOTE | ~2021-08-25 | FL_ITS ---
EXAMINATION: XR FLUOROSCOPY WITH IMAGES CLINICAL INFORMATION: L3-L5 medial branch block bilateral. Pain. COMPARISON: None. TECHNIQUE: Fluoroscopy performed by Dr. Nicolás Brito. Fluoroscopy time: 1.0 minutes DAP: 11.1 mGycm2 Images: 2 FINDINGS: There are 2 lumbar spine images are obtained. The needle positioned on either side of right and left L4, L5 and S1 facet joints. Facet joints the visualized vertebral heights and alignment and disc heights are normal. There are karrie in the upper pelvis from previous intervention. FL/FL guidance in OR IMPRESSION: Fluoroscopy was provided to referring physician for pain management as described above.
[2021-08-25 10:37] VITALS: BP 96/47; PULSE 76; RESP 16; TEMP 37.2; O2SAT 98
--- NOTE | 2021-08-25 10:51 | P.HPSUR_ITS ---
Pre-Procedural Eval Section A Date of Service: 08/25/21 The patient is an INPATIENT: No Changes since office visit: Yes Patient answered all questions The History & Physical has been completed within 30 days and I have reviewed it.: No Section B Chief Complaint: Lumbar Spondylosis Details of Present Illness: as above Relevant Family History (Specify if Yes): No Relevant Social History: None Present Medications: None Medical History: No relevant PMH History of Previous Operations: No relevant previous surgery Allergies: Allergies Allergy/AdvReac Type Severity Reaction Status Date / Time Penicillins [PENICILLINS] Allergy Severe HIVES Verified 08/25/21 10:24 Iodinated Contrast Media Allergy Intermediate HIVES Verified 08/25/21 10:24 [IV CONTRAST] peanut [PEANUTS] Allergy Intermediate HIVES Verified 08/25/21 10:24 shellfish derived Allergy Intermediate HIVES Verified 08/25/21 10:24 [SHELLFISH DERIVED] cat dander Allergy Mild unknown Verified 08/25/21 10:24 dog dander Allergy Mild unknown Verified 08/25/21 10:24 pollen extracts Allergy Mild runny Verified 08/25/21 10:24 nose, itchy eyes Review of Systems Sugical H&P ROS: Negative: Constitution, Cardiovascular, Respiratory, Neurological, Psychiatric, Hem-Onc, Allergic/Immunologic, Gastrointestinal, Genitourinary, Musculoskeletal, Integumentary, Endocrine and Eyes/E ars/Nose/Throat Exam Surgical H&P Exam: Normal: HEENT, Normal: Heart, Normal: Lungs, Normal: Extremities, Normal: Abdomen, Normal: Skin and Normal: Neurological Plan I have reviewed the history and physical and performed a pertinent physical examination on my patient. No changes have occurred unless specified.
[2021-08-25] MEDS: Lactated Ringers 1,000 ML 100 ML IVCONT (11:06)
--- NOTE | 2021-08-25 12:44 | PM.OP ---
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
--- NOTE | 2021-08-25 12:47 | P.OP_ITS ---
Operative Note Operative Note Date of Service: 08/25/21 Narrative: ? ? Informed consent was explained to the patient. All questions were explained and answered.? The patient was taken inside of the operating room where she was positioned prone on the operating table.?ASA monitors were applied and the patient was moderately sedated. Time-out was performed delineating patient's name and date of , correct site, side, the nature of the procedure, patient's allergy, preoperative anti biotic if needed.? All operating room staff was participating in OR time-out procedure.? ? Her lower back was prepped with ChloraPrep and draped with sterile towels.? Sterilely draped C-arm was brought over the operating field and sq picture of L4-5 vertebra and S1 vertebra were delineated on the screen.? Points of interest were delineated as connection of superior articular process of L4 and L5 vertebra bilaterally with corresponding transverse processes as well as connection of the sacral alae bilaterally with superior articular process of S1.? The projection of the point of interest to the skin were injected with the small amount of local anesthetic lidocaine 2% 1-1.5 cc.? And after that 18 gauge 100 mm radiofrequency cannulas were driven to the point of interest in tunnel vision fashion under oblique view with bilingual customer service specialist of the C-arm tilted 5? to the feet.? After needles gently contacted the bone at the point of interests the stylets were removed from the needles and electrodes were inserted into the needles.? Electrodes were connected to the radiofrequency machine and testing was performed for the patient's motor function.? There were no pathological motor response indicating stimulation of somatic nerves.? After that electrodes were removed and each needle was injected with small amount of bupivacaine 0.5% 1-1.5 cc mixed with trace amount of Kenalog.? Upon completion of the injections the electrodes were reinserted and energy of 80 degree centigrade for 90 seconds was applied to each needle 1st on the right side and then on the left.? Upon completion of the energy application the needles were rotated 180? and energy applied with the same temperature and with the same time.? Upon completion of the injections needles were removed and sterile dressings were applied patient was taken outside of the operating room to recovery room where she recovered uneventfully. She went home without immediate complications.
[2021-08-25 12:51] VITALS: BP 108/46; PULSE 68; RESP 10; TEMP 37.2; O2SAT 100
[2021-08-25 13:05] VITALS: BP 122/58; PULSE 59; RESP 12; O2SAT 99
[2021-08-25 13:23] VITALS: BP 97/53; PULSE 67; RESP 16; O2SAT 99
--- NOTE | 2021-08-25 14:25 | HO.POSTANES ---
Post Anesthesia Evaluation Post Anesthesia Evaluation Vital Signs: Vital Signs Temp Pulse Resp BP Pulse Ox 08/25/21 13:23 67 16 97/53 L 99 08/25/21 13:05 59 12 122/58 L 99 08/25/21 12:51 98.9 F 68 10 L 108/46 L 100 08/25/21 10:37 99.0 F 76 16 96/47 L 98 Anesthesia: Monitored Mental Status: Awake Pain Control: Satisfactory Nausea/Vomiting: None Hydration: Adequate Anesthesia-Related Issues: No Anes. Related Issues
== END 2021-08-25 14:02 | disposition home or self-care (01) ==
PROVIDERS: PCP Internal Medicine; Visit Provider Anesthesiology
PROC: (CPT 64635; principal; 2021-08-25 11:30)
DX: M47.816 Spondylosis without myelopathy or radiculopathy, lumbar region (principal); M54.50 Low back pain, unspecified; M54.6 Pain in thoracic spine; M15.9 Polyosteoarthritis, unspecified; M06.9 Rheumatoid arthritis, unspecified; M79.7 Fibromyalgia; J45.20 Mild intermittent asthma, uncomplicated; E66.9 Obesity, unspecified; Z68.38 Body mass index [BMI] 38.0-38.9, adult; F31.9 Bipolar disorder, unspecified; Z79.51 Long term (current) use of inhaled steroids; Z79.899 Other long term (current) drug therapy; Z88.0 Allergy status to penicillin; Z91.041 Radiographic dye allergy status
CPT/HCPCS: 64635; 64636 ×2; J2250; J3010; J3300

== ENCOUNTER → 2021-09-01 15:01 | Outpatient (BNVA) | payer OTHER, SELFPAY | PROVIDERS: PCP Internal Medicine; Visit Provider Physician Assistant | DX: M65.331 Trigger finger, right middle finger (principal); M65.332 Trigger finger, left middle finger | CPT/HCPCS: 20550; 99212; J1100 ==

== ENCOUNTER → 2021-09-28 10:59 | Outpatient (BNVA) | payer OTHER, SELFPAY | PROVIDERS: PCP Internal Medicine; Visit Provider Nurse Practitioner Family | DX: M54.16 Radiculopathy, lumbar region (principal); M47.816 Spondylosis without myelopathy or radiculopathy, lumbar region; S22.000D Wedge compression fracture of unspecified thoracic vertebra, subsequent encounter for fracture with routine healing | CPT/HCPCS: 99212 ==

== ENCOUNTER 2021-10-04 11:33 | Outpatient (REF) | payer OTHER, SELFPAY ==
[2021-10-04 12:02] LABS: MANUAL DIFF FLAG NO
[2021-10-04 12:27] LABS: Basophils Absolute Auto 0.1 X10*3/uL (0.0-0.2); Basophils Percent Auto 0.5 % (0-2); Eosinophils Absolute Auto 0.2 X10*3/uL (0.0-0.4); Eosinophils Percent Auto 2.5 % (0-4); Hematocrit 40.4 % (37.0-47.0); Hemoglobin 12.1 g/dl (12.0-16.0); Imm Gran Abs Auto 0.03 X10*3/uL (0.00-0.03); Imm Gran Pct Auto 0.3 % (0.0-0.4); Lymphocytes Absolute Auto 1.5 X10*3/uL (1.2-4.9); Lymphocytes Percent Auto 15.5 % (20-40); Mean Corpuscular Hemoglobin 26.2 pg (27.0-33.0); Mean Corpuscular Volume 87.6 fL (80.0-98.0); Mean Platelet Volume 10.1 fL (9.4-12.3); Monocytes Absolute Auto 0.4 X10*3/uL (0.1-1.2); Monocytes Percent Auto 4.4 % (2-11); Neutrophils Absolute Auto 7.5 x10*3/uL (2.0-8.3); Neutrophils Percent Auto 76.8 % (45-73); Platelet Count 407 X10*3/uL (160-400); Red Blood Count 4.61 X10*6/uL (4.20-5.50); Red Cell Distribution Width 15.2 % (11.0-16.0); White Blood Count 9.7 X10*3/uL (4.8-10.8)
[2021-10-04 13:11] LABS: Alanine Aminotransferase 12 U/L (0-31); Albumin Level 4.3 g/dL (3.5-5.0); Alkaline Phosphatase 94 U/L (39-117); Anion Gap 14 (12-20); Aspartate Amino Transferase 11 U/L (5-31); Bilirubin Total 0.4 mg/dL (0.0-1.0); Blood Urea Nitrogen 12 mg/dL (9-16); Calcium 9.8 mg/dL (8.4-10.2); Carbon Dioxide 26 mmol/L (22-29); Chloride 106 mmol/L (96-108); Cholesterol 182 mg/dL; Estimated Glomerular Filt Rate > 60; Glucose Fasting 86 mg/dL (60-99); HDL Cholesterol 52 mg/dL; LDL Cholesterol Calculated 99 mg/dl; Potassium 4.8 mmol/L (3.3-5.1); Sodium 141 mmol/L (135-145); Total Protein 7.6 g/dL (6.5-8.0); Triglycerides 155 mg/dL
[2021-10-04 13:35] LABS: Vitamin D 25-OH Total 28.4 ng/mL (>30)
[2021-10-04 13:51] LABS: Appearance Urine HAZY; Color Urine YELLOW; Glucose Urine UA NEG (NEG); Leukocyte Esterase Urine TRACE (NEG); Nitrite Urine NEG (NEG); Urine Blood 3+ (NEG); Urine Ketones NEG (NEG); Urine Protein NEG (NEG-TRACE)
[2021-10-04 14:04] LABS: RBC Urine 50-75 /HPF (0); Squamous Epithelial Cell Urine 1+ /LPF; Urine Talc Crystals 2+ /LPF; WBC Urine 0-2 /HPF (0-4)
== END 2021-10-04 11:34 | disposition home or self-care (01) ==
LOC: HO.LAB 11:33
PROVIDERS: PCP Internal Medicine; Visit Provider Internal Medicine
DX: I10 Essential (primary) hypertension (principal); E78.00 Pure hypercholesterolemia, unspecified; E55.9 Vitamin D deficiency, unspecified; M15.9 Polyosteoarthritis, unspecified
CPT/HCPCS: 36415; 80053; 80061; 81001; 82306; 84443; 85025

== ENCOUNTER → 2021-10-14 10:21 | Outpatient (BNVA) | payer OTHER, SELFPAY | PROVIDERS: PCP Internal Medicine; Visit Provider Nurse Practitioner Family ==

== ENCOUNTER 2021-11-10 16:01 | Emergency (ER) | payer OTHER, SELFPAY ==
[2021-11-10 16:06] VITALS: BP 115/70; PULSE 73; RESP 18; TEMP 36.1; O2SAT 99; BMI 33.0
--- NOTE | 2021-11-10 19:26 | ED_ITS ---
HPI - Back Pain/Injury General Chief Complaint: Back Pain/Injury Stated Complaint: lower back pain Time Seen by Provider: 11/10/21 19:02 Source: patient and family Mode of arrival: ambulatory Limitations: no limitations History of Present Illness HPI Narrative: 51-year-old female with a history of chronic low back pain followed by pain management Dr. Thomas who takes tramadol, baclofen here with reports of acute on chronic low back pain for the last 6 days unrelieved with home meds. Patient tells me pain radiates both of her legs. This has been her typical pain. No associated numbness, tingling, weakness. Patient denies bowel or bladder incontinence. No fevers or chills. No history of IV drug abuse or immunocompromised state. Patient tells me she had a MRI of her lumbar spine on 01/2021 1. Mild multilevel degenerative changes and L4-5 grade 1 anterolisthesis is similar to the CT scan. No acute abnormality. 2. Mild superior endplate compression deformities from T10 to T12 do not demonstrate acute features. -no new injury or trauma. Related Data Home Medications Medication Instructions Recorded Confirmed cetirizine 10 mg tablet (Zyrtec) 10 mg PO DAILY 07/06/20 10/14/21 clonazepam 1 mg tablet (Klonopin) 1 mg PO BID 07/06/20 10/14/21 montelukast 10 mg tablet 10 mg PO DAILY 07/06/20 10/14/21 (Singulair) naratriptan 2.5 mg tablet See Rx Instructions PO .COMPLEX 07/06/20 10/14/21 travoprost 0.004 % eye drops 1 drp OPHTHALMIC (EYE) QPM 07/06/20 10/14/21 (Travatan Z) zolpidem 10 mg tablet (Ambien) 10 mg PO BEDTIME PRN 07/06/20 10/14/21 cyclosporine 0.05 % eye drops in a 1 drp OPHTHALMIC (EYE) Q12H 01/06/21 10/14/21 dropperette (Restasis) omalizumab 150 mg subcutaneous 150 mg SUBCUT Q4W ea 03/08/21 10/14/21 solution (Xolair) Previous Rx's Medication Instructions Recorded atorvastatin 20 mg tablet 20 mg PO DAILY #90 tab 02/21/21 fluticasone propionate 50 1 spray INTRANASAL DAILY #48 ml 03/11/21 mcg/actuation nasal spray,suspension famotidine 20 mg tablet 20 mg PO BID 90 Days #180 tab 03/14/21 lactobacillus combination no.4 3 3,000 mmu cells PO DAILY #30 cap 04/15/21 billion cell capsule (Probiotic) ferrous gluconate 240 mg (27 mg 240 mg PO DAILY #30 tab 04/19/21 iron) tablet baclofen 10 mg tablet 10 mg PO DAILY #90 tab 07/15/21 gabapentin 800 mg tablet 800 mg PO Q8H #90 tab 07/15/21 dicyclomine 10 mg capsule 10 mg PO TID #90 cap 08/02/21 pantoprazole 40 mg tablet,delayed 40 mg PO DAILY 30 Days #90 tab 08/30/21 release tramadol 50 mg tablet 50 mg PO BID #60 tab 09/20/21 duloxetine 60 mg capsule,delayed 60 mg PO DAILY #90 cap 09/21/21 release fluticasone propionate 220 1 puff INHALATION BID #12 g 09/27/21 mcg/actuation HFA aerosol inhaler (Flovent HFA) albuterol sulfate 90 mcg/actuation 2 puff INHALATION Q4-6H PRN #8.5 g 10/03/21 aerosol inhaler Allergies Allergy/AdvReac Type Severity Reaction Status Date / Time Penicillins [PENICILLINS] Allergy Severe HIVES Verified 10/08/21 05:56 Iodinated Contrast Media Allergy Intermediate HIVES Verified 10/08/21 05:56 [IV CONTRAST] peanut [PEANUTS] Allergy Intermediate HIVES Verified 10/08/21 05:56 shellfish derived Allergy Intermediate HIVES Verified 10/08/21 05:56 [SHELLFISH DERIVED] cat dander Allergy Mild unknown Verified 10/08/21 05:56 dog dander Allergy Mild unknown Verified 10/08/21 05:56 pollen extracts Allergy Mild runny Verified 10/08/21 05:56 nose, itchy eyes Review of Systems Review of Systems: Yes all other systems are reviewed and are negative Constitutional: Constitutional: Reports no additional constitutional complaints, Denies body ache(s), Denies chills, Denies fever(s), Denies headache(s) and Denies weakness Eyes: Eyes: Reports no additional eye complaints and Denies change in vision ENT: Reports system reviewed and no additional complaints, except as documented, Denies dizziness, Denies headache(s), Denies nasal congestion, Denies nasal discharge and Denies neck pain Cardiovascular: Cardiovascular: Reports no additional cardiovascular complaints, Denies chest pain, Denies leg edema and Denies dyspnea Respiratory: Respiratory: Reports no additional respiratory complaints, Denies cough and Denies dyspnea Gastrointestinal: Gastrointestinal: Reports no additional gastrointestinal complaints, Denies abdominal pain, Denies diarrhea, Denies nausea and Denies vomiting Genitourinary: Genitourinary: Reports no additional female genitourinary complaints and Denies urinary incontinence Musculoskeletal: Musculoskeletal: Reports no additional musculoskeletal complaints, Reports back pain, Denies arthralgias, Denies joint swelling, Denies neck pain, Denies numbness and Denies tingling Integumentary/Breasts: Skin/Breast: Reports system reviewed and no additional complaints, except as docu and Denies rash Neurologic: Reports system reviewed and no additional complaints, except as documented, Denies Abnormal speech present, Denies dizziness, Denies headache(s), Denies numbness, Denies tingling and Denies weakness PMFSH Past Medical History Attestation statement: The following information was validated with the patient. Source: old records reviewed and nursing notes reviewed Medical History Abdominal pain Allergic rhinitis Bipolar depression Fibromyalgia Gastritis HLA-B27 spondyloarthropathy Hx of small bowel obstruction Insomnia Lumbar spondylosis Migraine Mild intermittent asthma without complication Obesity (BMI 30-39.9) Osteoarthritis of multiple joints Primary osteoarthritis of right hip Pure hypercholesterolemia Vitamin D deficiency Surgical History History of carpal tunnel surgery History of esophagogastroduodenoscopy (EGD) History of extraction of renal calculus History of hand surgery History of hysterectomy Hx of cholecystectomy Hx of colonoscopy Hx of cystoscopy Hx of removal of ovary Hx of unilateral oophorectomy S/P cystourethroscopy with dilation of urethral stricture (~07/21/20) Family History Family History Father Kidney problem Diabetes Mother Kidney malignancy Diabetes Brother Asthma Diabetes Social History Social History Housing: House Alcohol intake: never Patient Tobacco Use Status: Never used Tobacco e-Cigarette/Vaping Use: Never Used Second Hand Smoke Exposure: Yes Advance Directives: No service: No Current occupational status: disabled Physical Exam Vital Signs: Vital Signs: Last Vital Signs Temp 97 F 11/10/21 16:06 Pulse 60 11/10/21 19:34 Resp 17 11/10/21 19:34 BP 121/71 11/10/21 19:34 Pulse Ox 98 11/10/21 19:34 BMI result Body Mass Index 33.0 Const: General: cooperative, healthy appearing, comfortable and no acute distress Orientation/consciousness: patient oriented x3 Limitations: no limitations HEENT: Head: Yes normal to inspection Ears: hearing grossly normal bila terally General nose exam: Normal external nose present Face and sinus: Yes normal facial exam Mouth: Normal oral and palatal mucosa present Throat: Yes posterior oropharynx normal Eyes: General: appearance normal, both eyes and all related structures Pupils: Equal, round and reactive pupils present Neck: Neck: Yes normal visual inspection Chest: Chest palpation & inspection: normal inspection of the chest Resp: Effort & Inspection: normal respiratory effort Auscultation: clear to auscultation bilaterally Cardio: Rate: regular rate Rhythm: regular rhythm Peripheral pulses: Peripheral pulses 2+ throughout GI: Inspection: Yes normal to inspection Palpation (GI): Soft to palpation and nontender Auscultation: normal bowel sounds Back/Spine/Pelvis: Other: Tenderness over the lumbar spine with no step-offs deformities. Pain is worsened with flexion and extension of the spine. Pain is worsened with bilateral straight leg raise. Thoracic/Lumbar Spine: thoracic and lumbar spine normal to inspection Skin: General skin exam: no rashes or lesions noted Neuro: General: patient oriented x3, no focal motor deficits and normal sensation to monofilament Cranial nerves: Yes CN's II-XII intact bilaterally, Yes Equal, round and reactive pupils present, Yes Bilaterally intact EOM present, Yes Nystagmus not present and Yes Normal facial strength present Cognition (Neuro): normal cognition Speech: No Abnormal speech present Gait exam (Neuro): Normal gait present Motor exam (neuro): 5/5 motor strength present throughout Sensory Exam: Normal double simultaneous stimulation for sensation Deep tendon reflexes (DTR's): Right patellar reflex intensity grade: 2+ and Left patellar reflex intensity grade: 2+ Extrem: General: Yes normal to inspection Course Course Course Narrative: 51-year-old female here with acute on chronic low back pain unrelieved with home and with no new injury or trauma. Patient is followed by pain management outpatient. No neurological deficits or red flag symptoms. Patient was given Toradol 60 mg IM with improvement of pain. Recommend she follow up outpatient with Dr. Thomas. Reviewed worrisome signs and symptoms of when to return to the emergency department. Comfortable discharge home. MDM - Back Pain/Injury MDM Narrative Medical decision making narrative: Less likely epidural abscess with no reports of fever, no history of IV drug abuser immunocompromised state and a normal neurological exam Less likely cauda equina with normal neurological exam and no reports of saddle anesthesia or incontinence Medical Records Attestation: I reviewed the patient's medical records. Lab Data Attestation: I reviewed the patient's lab results. Discharge Plan Discharge Clinical Impression: Back pain Patient Disposition: Home, Self-Care Instructions: Back Pain (ED) Additional Instructions: Follow-up with pain management. Continue your regular medication Prescriptions: No Action atorvastatin 20 mg tablet 20 mg PO DAILY Qty: 90 1RF fluticasone propionate 50 mcg/actuation spray,suspension 1 spray intranasal DAILY Qty: 48 1RF famotidine 20 mg tablet 20 mg PO BID 90 Days Qty: 180 1RF ferrous gluconate 240 mg (27 mg iron) tablet 240 mg PO DAILY Qty: 30 1RF baclofen 10 mg tablet 10 mg PO DAILY Qty: 90 1RF gabapentin 800 mg tablet 800 mg PO Q8H Qty: 90 5RF pantoprazole 40 mg tablet,delayed release (DR/EC) 40 mg PO DAILY 30 Days Qty: 90 2RF tramadol 50 mg tablet 50 mg PO BID Qty: 60 5RF duloxetine 60 mg capsule,delayed release(DR/EC) 60 mg PO DAILY Qty: 90 1RF Flovent HFA 220 mcg/actuation HFA aerosol inhaler 1 puff inhalation BID Qty: 12 0RF albuterol sulfate 90 mcg/actuation HFA aerosol inhaler 2 puff inhalation Q4-6H PRN (Reason: Shortness Of Breath Or Wheezing) Qty: 8.5 0RF travoprost [Travatan Z] 0.004 % drops 1 drp ophthalmic (eye) QPM 0RF naratriptan 2.5 mg tablet See Rx Instructions PO .COMPLEX 0RF Rx Instructions: take 1 tab at onset of headache; if no relief may repeat 1 tab after at least 4 hrs; max = 2 tabs/24 hrs PO clonazepam [Klonopin] 1 mg tablet 1 mg PO BID 0RF zolpidem [Ambien] 10 mg tablet 10 mg PO BEDTIME PRN (Reason: Insomnia) 0RF montelukast [Singulair] 10 mg tablet 10 mg PO DAILY 0RF cetirizine [Zyrtec] 10 mg tablet 10 mg PO DAILY 0RF dicyclomine 10 mg capsule 10 mg PO TID Qty: 90 2RF Rx Instructions: take 30 min-15 minutes before meals up to 3 times a day Restasis 0.05 % dropperette 1 drp ophthalmic (eye) Q12H 0RF Xolair 150 mg recon soln 150 mg subcut Q4W 0RF Probiotic 3 billion cell capsule 3,000 mmu cells PO DAILY Qty: 30 5RF Rx Instructions: administer with a meal Interventions: ED Discharge Assessment Last Done: 11/10/21 21:04 Discharge Date/Time: 11/10/21 21:05
[2021-11-10] MEDS: Ketorolac Tromethamine 60 MG/2 ML VIAL IM (19:30)
[2021-11-10 19:34] VITALS: BP 121/71; PULSE 60; RESP 17; O2SAT 98
== END 2021-11-10 21:05 | disposition home or self-care (01) ==
PROVIDERS: Emergency Provider Internal Medicine; PCP Internal Medicine
DX: G89.4 Chronic pain syndrome (principal); M54.50 Low back pain, unspecified
CPT/HCPCS: 96372; 99284; J1885

== ENCOUNTER → 2021-11-16 11:33 | Outpatient (BNVA) | payer OTHER, SELFPAY | PROVIDERS: PCP Internal Medicine; Visit Provider Nurse Practitioner Family | DX: M46.1 Sacroiliitis, not elsewhere classified (principal) | CPT/HCPCS: 99212 ==

== ENCOUNTER → 2021-12-12 13:22 | Outpatient (BNVA) | payer OTHER, SELFPAY | PROVIDERS: PCP Internal Medicine; Referring Provider Internal Medicine; Visit Provider Nurse Practitioner Family | DX: K58.0 Irritable bowel syndrome with diarrhea (principal); K21.9 Gastro-esophageal reflux disease without esophagitis; R19.7 Diarrhea, unspecified | CPT/HCPCS: 99212 ==

== ENCOUNTER → 2021-12-14 14:16 | Outpatient (BNVA) | payer OTHER, SELFPAY | PROVIDERS: PCP Internal Medicine; Visit Provider Nurse Practitioner Family | DX: M53.3 Sacrococcygeal disorders, not elsewhere classified (principal) | CPT/HCPCS: 99212 ==

== ENCOUNTER 2022-01-03 12:46 | Outpatient (REF) | payer OTHER, SELFPAY ==
[2022-01-03 13:11] LABS: MANUAL DIFF FLAG NO
[2022-01-03 13:18] LABS: Basophils Percent Auto 0.4 % (0-2); Eosinophils Absolute Auto 0.4 X10*3/uL (0.0-0.4); Eosinophils Percent Auto 4.2 % (0-4); Hematocrit 39.4 % (37.0-47.0); Hemoglobin 11.8 g/dl (12.0-16.0); Imm Gran Abs Auto 0.05 X10*3/uL (0.00-0.03); Imm Gran Pct Auto 0.5 % (0.0-0.4); Lymphocytes Absolute Auto 1.6 X10*3/uL (1.2-4.9); Lymphocytes Percent Auto 16.7 % (20-40); Mean Corpuscular HGB Conc 29.9 g/dl (31.0-35.0); Mean Corpuscular Hemoglobin 26.1 pg (27.0-33.0); Mean Corpuscular Volume 87.2 fL (80.0-98.0); Mean Platelet Volume 9.9 fL (9.4-12.3); Monocytes Absolute Auto 0.5 X10*3/uL (0.1-1.2); Monocytes Percent Auto 5.3 % (2-11); Neutrophils Absolute Auto 6.8 x10*3/uL (2.0-8.3); Neutrophils Percent Auto 72.9 % (45-73); Platelet Count 403 X10*3/uL (160-400); Red Blood Count 4.52 X10*6/uL (4.20-5.50); Red Cell Distribution Width 14.7 % (11.0-16.0); White Blood Count 9.3 X10*3/uL (4.8-10.8)
[2022-01-03 13:45] LABS: Alanine Aminotransferase 17 U/L (0-31); Albumin Level 4.1 g/dL (3.5-5.0); Alkaline Phosphatase 95 U/L (39-117); Anion Gap 14 (12-20); Aspartate Amino Transferase 12 U/L (5-31); Bilirubin Total 0.5 mg/dL (0.0-1.0); Blood Urea Nitrogen 13 mg/dL (9-16); Calcium 9.7 mg/dL (8.4-10.2); Carbon Dioxide 23 mmol/L (22-29); Chloride 109 mmol/L (96-108); Cholesterol 177 mg/dL; Estimated Glomerular Filt Rate > 60; Glucose Fasting 90 mg/dL (60-99); HDL Cholesterol 50 mg/dL; LDL Cholesterol Calculated 104 mg/dl; Potassium 4.8 mmol/L (3.3-5.1); Sodium 141 mmol/L (135-145); Total Protein 7.5 g/dL (6.5-8.0); Triglycerides 116 mg/dL
[2022-01-03 13:49] LABS: Appearance Urine HAZY; Color Urine YELLOW; Glucose Urine UA NEG (NEG); Leukocyte Esterase Urine NEG (NEG); Nitrite Urine NEG (NEG); Specific Gravity - Urine 1.025 (1.005-1.025); Urine Blood NEG (NEG); Urine Ketones NEG (NEG); Urine Protein NEG (NEG-TRACE)
[2022-01-03 14:00] LABS: TSH reflex Free T4 1.15 uIU/mL (0.32-4.0); Vitamin D 25-OH Total 27.9 ng/mL (>30)
== END 2022-01-03 12:47 | disposition home or self-care (01) ==
LOC: HO.LAB 12:46
PROVIDERS: PCP Internal Medicine; Visit Provider Internal Medicine
DX: I10 Essential (primary) hypertension (principal); E78.00 Pure hypercholesterolemia, unspecified; E55.9 Vitamin D deficiency, unspecified
CPT/HCPCS: 36415; 80053; 80061; 81003; 82306; 84443; 85025

== ENCOUNTER → 2022-01-12 12:50 | Outpatient (BNVA) | payer OTHER, SELFPAY | PROVIDERS: PCP Internal Medicine; Visit Provider Nurse Practitioner Family | DX: M47.816 Spondylosis without myelopathy or radiculopathy, lumbar region (principal); E55.9 Vitamin D deficiency, unspecified | CPT/HCPCS: 99212 ==

== ENCOUNTER 2022-02-10 10:37 | Day surgery (SDC) | payer OTHER, SELFPAY ==
--- NOTE | 2022-02-09 10:36 | P.CONAN_ITS ---
Documented by User: Gisela Conway NP 02/09/22 10:38 HPI - Anesthesia Eval Consult details Narrative: 51yo F for Therapeutic Sacroiliac Joint Injection s/p medial branch RFA 08/2021 with [facility] Active Problems Active Problems: All Active Problems (Updated 01/09/22 @ 16:06 by Christ Goodwin MD) Palpitations (Acute) Upper respiratory tract infection (Acute) Sacroiliac joint pain (Acute) Sacroiliitis (Acute) Elevated blood pressure reading in office without diagnosis of hypertension (Acute) Bilateral lumbar radiculopathy (Acute) Acquired trigger finger of both middle fingers (Acute) Ingrown toenail of both feet (Acute) Right ear pain (Acute) Annual physical exam (Acute) Trigger finger, right middle finger (Acute) Compression fracture of body of thoracic vertebra (Acute) Right sciatic nerve pain (Acute) Gastritis (Acute) Fibromyalgia (Acute) Abdominal pain (Acute) Obesity (BMI 30-39.9) (Acute) Bipolar depression (Acute) Insomnia (Acute) HLA-B27 spondyloarthropathy (Acute) Osteoarthritis of multiple joints (Acute) Vitamin D deficiency (Acute) Migraine (Acute) Allergic rhinitis (Acute) Mild intermittent asthma without complication (Acute) Pure hypercholesterolemia (Acute) Primary osteoarthritis of right hip (Acute) Lumbar spondylosis (Acute) Past Medical History Medical History Abdominal pain Allergic rhinitis Bipolar depression Fibromyalgia Gastritis HLA-B27 spondyloarthropathy Hx of small bowel obstruction Insomnia Lumbar spondylosis Migraine Mild intermittent asthma without complication Obesity (BMI 30-39.9) Osteoarthritis of multiple joints Palpitations Primary osteoarthritis of right hip Pure hypercholesterolemia Vitamin D deficiency Family History Family History Father Kidney problem Diabetes Mother Kidney malignancy Diabetes Brother Asthma Diabetes Family history of problems with anesthesia: No Surgical History Surgical History History of carpal tunnel surgery History of esophagogastroduodenoscopy (EGD) History of extraction of renal calculus History of hand surgery History of hysterectomy Hx of cholecystectomy Hx of colonoscopy Hx of cystoscopy Hx of removal of ovary Hx of unilateral oophorectomy S/P cystourethroscopy with dilation of urethral stricture (~07/21/20) History of Problems with Anesthesia: No Social History Social History Housing: House Alcohol intake: never Patient Tobacco Use Status: Never used Tobacco e-Cigarette/Vaping Use: Never Used Second Hand Smoke Exposure: No Use of substances other than those prescribed or required for medical reasons: No Are you DNR?: No Advance Directives: No Advance Directives Information Provided: Yes How much weight loss: 2-13 pounds Nutrition Risks: No Nutritional Risk service: No Current occupational status: disabled Cognitive needs: No Hearing needs: No Vision needs: Yes Meds Allergies Allergy/AdvReac Type Severity Reaction Status Date / Time Penicillins [PENICILLINS] Allergy Severe HIVES Verified 01/12/22 13:15 Iodinated Contrast Media Allergy Intermediate HIVES Verified 01/12/22 13:15 [IV CONTRAST] peanut [PEANUTS] Allergy Intermediate HIVES Verified 01/12/22 13:15 shellfish derived Allergy Intermediate HIVES Verified 01/12/22 13:15 [SHELLFISH DERIVED] cat dander Allergy Mild unknown Verified 01/12/22 13:15 dog dander Allergy Mild unknown Verified 01/12/22 13:15 pollen extracts Allergy Mild runny Verified 01/12/22 13:15 nose, itchy eyes Home Medications Medication Instructions Recorded Confirmed Last Taken Type cetirizine 10 mg tablet (Zyrtec) 10 mg PO DAILY 07/06/20 01/12/22 Unknown History clonazepam 1 mg tablet (Klonopin) 1 mg PO BID 07/06/20 01/12/22 08/25/21 05:00 History montelukast 10 mg tablet 10 mg PO DAILY 07/06/20 01/12/22 Unknown History (Singulair) naratriptan 2.5 mg tablet See Rx Instructions PO .COMPLEX 07/06/20 01/12/22 Unknown History travoprost 0.004 % eye drops 1 drp ophthalmic (eye) QPM 07/06/20 01/12/22 Unknown History (Travatan Z) cyclosporine 0.05 % eye drops in a 1 drp ophthalmic (eye) Q12H 01/06/21 01/12/22 Unknown History dropperette (Restasis) omalizumab 150 mg subcutaneous 150 mg subcut Q4W 03/08/21 01/12/22 Unknown History solution (Xolair) Exam Exam Date and Time: February 09, 2022 1036 Pertinent Lab Results Pertinent Lab Results: Laboratory Tests 01/03/22 01/03/22 13:08 13:08 WBC 9.3 Hgb 11.8 L Hct 39.4 Plt Count 403 H Sodium 141 Potassium 4.8 Chloride 109 H Carbon Dioxide 23 BUN 13 Creatinine 0.69 Cholesterol 177 Assessment and Plan Assessment Anesthesia Assessment: Chart Reviewed Final Anesthetic Review Family History of Problems with Anesthesia: No History of Problems with Anesthesia: No Documented by User: Juan Hernandez MD 02/10/22 13:57 PMFSH Past Medical History Medical History Abdominal pain Allergic rhinitis Bipolar depression Fibromyalgia Gastritis HLA-B27 spondyloarthropathy Hx of small bowel obstruction Insomnia Lumbar spondylosis Migraine Mild intermittent asthma without complication Obesity (BMI 30-39.9) Osteoarthritis of multiple joints Palpitations Primary osteoarthritis of right hip Pure hypercholesterolemia Vitamin D deficiency Family History Family History Father Kidney problem Diabetes Mother Kidney malignancy Diabetes Brother Asthma Diabetes Surgical History Surgical History History of carpal tunnel surgery History of esophagogastroduodenoscopy (EGD) History of extraction of renal calculus History of hand surgery History of hysterectomy Hx of cholecystectomy Hx of colonoscopy Hx of cystoscopy Hx of removal of ovary Hx of unilateral oophorectomy S/P cystourethroscopy with dilation of urethral stricture (~07/21/20) Social History Social History Housing: House Alcohol intake: never Patient Tobacco Use Status: Never used Tobacco e-Cigarette/Vaping Use: Never Used Second Hand Smoke Exposure: No Use of substances other than those prescribed or required for medical reasons: No Are you DNR?: No Advance Directives: No Advance Directives Information Provided: Yes How much weight loss: 2-13 pounds Nutrition Risks: No Nutritional Risk service: No Current occupational status: disabled Cognitive needs: No Hearing needs: No Vision needs: Yes Meds Allergies Allergy/AdvReac Type Severity Reaction Status Date / Time Penicillins [PENICILLINS] Allergy Severe HIVES Verified 01/12/22 13:15 Iodinated Contrast Media Allergy Intermediate HIVES Verified 01/12/22 13:15 [IV CONTRAST] peanut [PEANUTS] Allergy Intermediate HIVES Verified 01/12/22 13:15 shellfish derived Allergy Intermediate HIVES Verified 01/12/22 13:15 [SHELLFISH DERIVED] cat dander Allergy Mild unknown Verified 01/12/22 13:15 dog dander Allergy Mild unknown Verified 01/12/22 13:15 pollen extracts Allergy Mild runny Verified 01/12/22 13:15 nose, itchy eyes Home Medications Medication Instructions Recorded Confirmed Last Taken Type cetirizine 10 mg tablet (Zyrtec) 10 mg PO DAILY 07/06/20 01/12/22 Unknown History clonazepam 1 mg tablet (Klonopin) 1 mg PO BID 07/06/20 01/12/22 08/25/21 05:00 History montelukast 10 mg tablet 10 mg PO DAILY 07/06/20 01/12/22 Unknown History (Singulair) naratriptan 2.5 mg tablet See Rx Instructions PO .COMPLEX 07/06/20 01/12/22 Unknown History travoprost 0.004 % eye drops 1 drp ophthalmic (eye) QPM 07/06/20 01/12/22 Unknown History (Travatan Z) cyclosporine 0.05 % eye drops in a 1 drp ophthalmic (eye) Q12H 01/06/21 01/12/22 Unknown History dropperette (Restasis) omalizumab 150 mg subcutaneous 150 mg subcut Q4W 03/08/21 01/12/22 Unknown History solution (Xolair) Exam Airway Mallampati Class: II TM Dist: >3cm Neck ROM: Full Loose/Missing/Broken Teeth: No Heart: rrr Lungs: clear Assessment and Plan Final Anesthetic Review NPO: Yes ASA Class: III Final Preanesthetic Review: No Changes in Pt Med Stat, Meds/Allgs Chart Reviewed, Consent Obtained/Reviewed and Anes Risks/Benef Reviewed Patient Risk: Intermediate Procedure Risk: Low Anesthetic Plan Anesthetic Plan: MAC: Disposition: Standard PACU
--- NOTE | ~2022-02-10 | FL_ITS ---
EXAMINATION: XR FLUOROSCOPY WITH IMAGES CLINICAL INFORMATION: Pain. SI joint injection COMPARISON: Radiographs lumbar spine 01/06/2021 TECHNIQUE: Fluoroscopy performed by Dr. Nicolás Thomas. Fluoroscopy time: 0.1 minutes. DAP: 1.27 Gycm2. Images: 1. FINDINGS: There is spinal needle overlying the mid to lower left SI joint. There is some contrast in the soft tissues and likely early intrauterine articular contrast. No visible vascular communication. There are surgical clips again seen overlying the pelvis. FL/FL guidance in OR IMPRESSION: Fluoroscopy for pain management procedure.
[2022-02-10 11:44] VITALS: BMI 38.0
[2022-02-10 12:04] VITALS: BP 111/62; PULSE 70; RESP 16; TEMP 36.7; O2SAT 98
[2022-02-10] MEDS: Lactated Ringers 1,000 ML 100 ML IVCONT (12:14)
--- NOTE | 2022-02-10 12:22 | MHC.SHP ---
Pre-Procedural Eval Section A Date of Service: 02/10/22 The patient is an INPATIENT: No Changes since office visit: Yes Patient answered all questions The History & Physical has been completed within 30 days and I have reviewed it.: No Section B Chief Complaint: joint pain Details of Present Illness: sacroiliitis Relevant Social History: None Present Medications: see Short Stay Collaborative assessment Medical History: No relevant PMH History of Previous Operations: No relevant previous surgery Allergies: Allergies Allergy/AdvReac Type Severity Reaction Status Date / Time Penicillins [PENICILLINS] Allergy Severe HIVES Verified 01/12/22 13:15 Iodinated Contrast Media Allergy Intermediate HIVES Verified 01/12/22 13:15 [IV CONTRAST] peanut [PEANUTS] Allergy Intermediate HIVES Verified 01/12/22 13:15 shellfish derived Allergy Intermediate HIVES Verified 01/12/22 13:15 [SHELLFISH DERIVED] cat dander Allergy Mild unknown Verified 01/12/22 13:15 dog dander Allergy Mild unknown Verified 01/12/22 13:15 pollen extracts Allergy Mild runny Verified 01/12/22 13:15 nose, itchy eyes Review of Systems Sugical H&P ROS: Negative: Constitution, Cardiovascular, Respiratory, Neurological, Psychiatric, Hem-Onc, Allergic/Immunologic, Gastrointestinal, Genitourinary, Musculoskeletal, Integumentary, Endocrine and Eyes/Ears/Nose/Throat Exam Surgical H&P Exam: Normal: HEENT, Normal: Heart, Normal: Lungs, Normal: Extremities, Normal: Abdomen, Normal: Skin and Normal: Neurological Exam Comment: Left sacroiliac joint therapeutic injection will be done Plan Diagnosis/Plan: Unchanged I have reviewed the history and physical and performed a pertinent physical examination on my patient. No changes have occurred unless specified.
--- NOTE | 2022-02-10 13:55 | W.PM.OPN ---
Operative Note Operative Note Date of Service: 02/10/22 Narrative: Left sacroiliac joint therapeutic injection. Informed consent was explained thoroughly to the patient.? All questions about benefits and risks for the procedure were answered. Patient came to the operating room she was positioned prone on the operating table with the pillow under her pelvis.? Time-out was performed delineating date of and name of the patient site and side of the procedure, risk of fire, needs for DVT prophylaxis needs for antibiotics.ASA monitors were applied and the patient was sedated. ? Her lower back and buttocks was prepped with ChloraPrep prepped and draped with sterile towels.? C-arm was brought over the operating field and sq picture of patient's pelvis was demonstrated on the screen.? For the left joint tilting C-arm contralateral to the site of the joint? the most posterior portion of the joints was clearly delineated on the screen and superimposed partially on anterior portion of the joint.? Skin was injected in the projection of the joint slightly medial to the location of the joint with 25 gauge 1/2 inch needle using local lidocaine 2% . After that 22 gauge 3 and 1/2 inch needle was driven to the point of interest in tunnel vision fashion.? When needle entered the joint capsule injection of the contrast was performed demonstrating intra-articular and minimally periarticular spread of the contrast.? After that 4 cc. of ropivacaine 0.5% was injected into the joint.? Upon completion of the injections the needle was removed .? Sterile dressing was applied.? Upon completion of the injection patient was taken outside of the operating room to the recovery room where she recovered uneventfully.?
--- NOTE | 2022-02-10 14:30 | P.BOP_ITS ---
Brief Operative Note Date of Service: 02/10/22 Pre-op diagnosis: sacroiliac joint pain Post-op diagnosis: same Procedure: left sacroiliac joint injection Implants: none Surgeon: Nicolás Thomas MD Anesthesia: MAC Was an Canvas Worker Apprentice used for this Procedure?: No Estimated blood loss (mL): 0 Pathology: none sent Condition: stable Disposition: PACU
[2022-02-10 14:31] VITALS: BP 122/50; PULSE 63; RESP 12; TEMP 36.7; O2SAT 98
[2022-02-10 14:46] VITALS: BP 103/53; PULSE 76; RESP 16; O2SAT 97
[2022-02-10 15:01] VITALS: BP 122/79; PULSE 76; RESP 16; TEMP 36.7; O2SAT 97
== END 2022-02-10 15:20 | disposition home or self-care (01) ==
PROVIDERS: PCP Internal Medicine; Visit Provider Anesthesiology
PROC: 3E0U33Z Introduction of Anti-inflammatory into Joints, Percutaneous Approach (ICD-10-PCS; CPT 27096; principal; 2022-02-10 12:30)
DX: M53.3 Sacrococcygeal disorders, not elsewhere classified (principal); M79.7 Fibromyalgia; M16.11 Unilateral primary osteoarthritis, right hip; J45.20 Mild intermittent asthma, uncomplicated; E66.9 Obesity, unspecified; Z68.37 Body mass index [BMI] 37.0-37.9, adult; Z88.0 Allergy status to penicillin; Z91.041 Radiographic dye allergy status; Z79.899 Other long term (current) drug therapy
CPT/HCPCS: 27096; J2250; J3300

== ENCOUNTER → 2022-03-01 13:54 | Outpatient (REF) | payer OTHER, SELFPAY ==
--- NOTE | 2022-03-01 14:00 | CA_ITS ---
Transthoracic Echocardiogram Patient (Last, First, Middle): Yanci Toney, Gender: Female Date of : 1970 Age: 52 Procedure Date: 03/01/2022 Procedure Type: Transthoracic Echocardiogram Location: OP Height: 152.4 cm Weight: 86.64 kg BSA: 1.83 m2 Heart Rate: bpm BP: 136 / 82 mmHg Coding Tech: Referring MD: Christ Goodwin MD Symptoms: R00.2 - Palpitations Study Quality: Adequate ECG Rhythm: Sinus Conclusions: - The left ventricular systolic function is normal. The calculated ejection fraction is 60% by biplane method. - No obvious valvular pathology seen on this study. Findings Left Ventricle Normal left ventricular cavity size. There is normal left ventricular wall thickness. The left ventricular systolic function is normal. The calculated ejection fraction is 60% by biplane method. There is no evidence of regional wall motion abnormalities. Diastolic function is normal for age. Right Ventricle Normal right ventricular cavity size and systolic function. Atria Both atria are normal in size. Aortic Valve There is a normal trileaflet aortic valve. There is no aortic valve stenosis. There is no aortic valve regurgitation. Mitral Valve The mitral valve appears normal. There is no mitral valve regurgitation. There is no mitral valve stenosis. Pulmonic Valve The pulmonic valve is likely normal. Tricuspid Valve There is trace tricuspid valve regurgitation. The pulmonary artery systolic pressure is normal. Great Vessels The aortic annulus, sinuses of valsalva, and asc aorta are normal in size. Venous The inferior vena cava is normal in size and collapses greater than 50% with inspiration. Pericardium/Pleural There is no evidence of pericardial effusion. Prior Study Comparison No prior study available for comparison. Recommendations, Care & Conclusions No obvious valvular pathology seen on this study. Measurements 2D Linear Measurements IVSd: 0.95 0.6-0.9/0.6-1.0 cm LVIDd: 4.45 3.9-5.3/4.2-5.9 cm LVIDd Index: 2.43 2.4-3.2/2.2-3.1 cm/m2 LVIDs: 2.69 2.0-3.6 cm LVPWd: 0.82 0.7-1.1 cm Ao Root: 2.80 2.1-3.5 cm LA Diam: 3.10 2.7-3.8/3.0-4.0 cm LAIDs Index: 1.69 1.5-2.3 cm/m2 LV Mass: 157.90 67-162/88-224 g LV Mass Index: 86.28 43-95/49-115 g/m2 LVOT Diam: 2.10 3.0+(-)1.3 cm 2D Systolic Function EF 4C: 58.60 >55% EF 2C: 60.80 >55% EF BiP: 60.10 >55% Mitral Valve MV Pk E: 0.92 MV PK A: 0.75 MV Decel Time: 160.00 E/A: 1.20 E'Lateral: 13.30 E'Medial: 9.68 E/E' Med: 9.50 E/E' Lat: 6.90 PHT: 47.00 MVA PHT: 4.68 Decel [place]: 5.73 Aortic Valve AoV Pk Jagdish: 1.41 AoV Mn Jagdish: 0.87 AoV VTI: 0.30 AoV Pk Grad: 8.00 Aov Mn Grad: 4.00 BETZAIDA Cont.VTI: 2.63 LVOT LVOT Pk Jagdish: 0.93 LVOT Mn Jagdish: 0.56 LVOT VTI: 0.23 LVOT Pk Grad: 3.00 LVOT Mn Grad: 2.00 LVOT Diam: 2.10 LVOT Area: 3.46 Diastolic Function MV Pk E: 0.92 MV Pk A: 0.75 E/A: 1.20 E'Medial: 9.68 E/E' Med: 9.50 E' Laterial: 13.30 E/E' Lat: 6.90 Right Ventricle TAPSE (mm): 31.00 Tricuspid Valve TR Pk Jagdish: 2.52 TR Pk Grad: 25.00 RA Press: 3.00 RVSP: 28.00 Great Vessels Aorta Ao Root-2D: 2.80 2.0-3.7 cm Ao Asc: 2.80 2.1-3.4 cm Pulmonary Valve PV Pk Jagdish: 1.31 Peak PV Grad: 7.00 Updated in Other Vendor System with Status of Final Avery Knutson MD electronically signed on 03/02/2022 4:46:02 PM with status of Final
--- NOTE | 2022-03-01 14:00 | HM_ITS ---
Conclusion: 1. Patient was monitor for total period of 3 days and 10 hours 2. Baseline was normal sinus with average heart of 77 beats per minute 3. No significant pauses or bradycardia noted 4. Total of 4322 PVCs accounting for 1.32% of total beats account for frequent PVCs 5. No patient reported events MTDD
== END ==
LOC: HO.CARD 13:54
PROVIDERS: PCP Internal Medicine; Visit Provider Internal Medicine
DX: R00.2 Palpitations (principal)
CPT/HCPCS: 93242; 93306

== ENCOUNTER → 2022-03-15 09:39 | Outpatient (BNVA) | payer OTHER, SELFPAY | PROVIDERS: PCP Internal Medicine; Visit Provider Nurse Practitioner Family | DX: M53.3 Sacrococcygeal disorders, not elsewhere classified (principal); M16.11 Unilateral primary osteoarthritis, right hip; G89.29 Other chronic pain; R10.31 Right lower quadrant pain | CPT/HCPCS: 99212 ==

== ENCOUNTER 2022-05-08 15:03 | Outpatient (REF) | payer OTHER, SELFPAY ==
--- NOTE | ~2022-05-08 | XR_ITS ---
EXAMINATION: XR BILATERAL HIPS WITH AP PELVIS CLINICAL INFORMATION: Primary osteoarthritis of the hips. COMPARISON: 08/04/2019 TECHNIQUE: 2 views of each hip. FINDINGS: No fracture or dislocation. Both hips are well aligned. Mild narrowing of the right hip joint space. Small marginal osteophytes of both hips. The pelvic rim is intact. The sacroiliac joints and pubic symphysis are intact. Surgical clips overlie the pelvis. Calcification along the left pelvic rim. Normal bowel gas pattern. XR/XR hips ANDREINA min 3V IMPRESSION: Mild degenerative changes of the hips.
== END 2022-05-08 15:04 | disposition home or self-care (01) ==
LOC: HO.XRAY 15:03
PROVIDERS: PCP Internal Medicine; Visit Provider Anesthesiology
DX: M53.3 Sacrococcygeal disorders, not elsewhere classified (principal); M16.11 Unilateral primary osteoarthritis, right hip; R10.31 Right lower quadrant pain; G89.29 Other chronic pain
CPT/HCPCS: 73522; 99212

== ENCOUNTER 2022-05-12 08:58 | Outpatient (REF) | payer OTHER, SELFPAY ==
[2022-05-12 09:19] LABS: MANUAL DIFF FLAG NO
[2022-05-12 09:52] LABS: Basophils Percent Auto 0.3 % (0-2); Eosinophils Absolute Auto 0.1 X10*3/uL (0.0-0.4); Eosinophils Percent Auto 0.7 % (0-4); Hemoglobin 11.5 g/dl (12.0-16.0); Imm Gran Abs Auto 0.11 X10*3/uL (0.00-0.03); Lymphocytes Percent Auto 8.3 % (20-40); Mean Corpuscular HGB Conc 31.1 g/dl (31.0-35.0); Mean Corpuscular Volume 86.9 fL (80.0-98.0); Mean Platelet Volume 10.2 fL (9.4-12.3); Monocytes Absolute Auto 0.7 X10*3/uL (0.1-1.2); Monocytes Percent Auto 5.7 % (2-11); Neutrophils Absolute Auto 9.7 x10*3/uL (2.0-8.3); Platelet Count 320 X10*3/uL (160-400); Red Blood Count 4.26 X10*6/uL (4.20-5.50); Red Cell Distribution Width 15.2 % (11.0-16.0); White Blood Count 11.5 X10*3/uL (4.8-10.8)
[2022-05-12 09:52] LABS: Appearance Urine Clear; Color Urine Yellow; Glucose Urine UA Negative (Negative); Leukocyte Esterase Urine Trace (Negative); Nitrite Urine Negative (Negative); PH 7.5 (5.0-9.0); UMIC TRIGGER UACC YES; Urine Blood Negative (Negative); Urine Ketones Negative (Negative); Urine Protein Negative (Neg-Trace)
[2022-05-12 09:57] LABS: Bacteria Urine None Seen (None Seen); Hyaline Casts Urine 0-2 /LPF (0-2); RBC Urine 0-2 /HPF (0-2); Squamous Epithelial Cell Urine 0-2 /HPF (0-2); WBC Urine 0-5 /HPF (0-5)
[2022-05-12 10:15] LABS: Alanine Aminotransferase 13 U/L (0-31); Albumin Level 3.9 g/dL (3.5-5.0); Alkaline Phosphatase 89 U/L (39-117); Anion Gap 15 (12-20); Aspartate Amino Transferase 13 U/L (5-31); Bilirubin Total 0.7 mg/dL (0.0-1.0); Blood Urea Nitrogen 9 mg/dL (9-16); Calcium 8.8 mg/dL (8.4-10.2); Carbon Dioxide 23 mmol/L (22-29); Chloride 105 mmol/L (96-108); Cholesterol 214 mg/dL; Estimated Glomerular Filt Rate > 60; Glucose Fasting 107 mg/dL (60-99); HDL Cholesterol 56 mg/dL; LDL Cholesterol Calculated 141 mg/dl; Potassium 4.2 mmol/L (3.3-5.1); Sodium 139 mmol/L (135-145); Total Protein 7.2 g/dL (6.5-8.0); Triglycerides 89 mg/dL
[2022-05-12 10:41] LABS: TSH reflex Free T4 2.55 uIU/mL (0.32-4.0); Vitamin D 25-OH Total 36.2 ng/mL (>30)
== END 2022-05-12 08:59 | disposition home or self-care (01) ==
LOC: HO.LAB 08:58
PROVIDERS: PCP Internal Medicine; Visit Provider Internal Medicine
DX: E55.9 Vitamin D deficiency, unspecified (principal); E78.00 Pure hypercholesterolemia, unspecified; I10 Essential (primary) hypertension
CPT/HCPCS: 36415; 80053; 80061; 81001; 82306; 84443; 85025

== ENCOUNTER 2022-05-12 09:24 | Emergency (ER) | payer OTHER, SELFPAY ==
--- NOTE | ~2022-05-12 | XR_ITS ---
EXAMINATION: XR CHEST CLINICAL INFORMATION: Pneumonia. COMPARISON: Chest 07/15/2013 TECHNIQUE: Frontal view of the chest was obtained. FINDINGS: The lungs are well-expanded with right upper lobe suprahilar infiltrate.. Rest lungs are expanded and clear. The heart size and perivascular is normal. No gross bony abnormality seen. XR/XR chest 1V IMPRESSION: Right upper lobe suprahilar infiltrate.
[2022-05-12 10:38] VITALS: BP 135/80; PULSE 103; RESP 16; TEMP 37.1; O2SAT 97; BMI 37.7
[2022-05-12 12:31] LABS: IDNOW Serial# 9DB6401D; Influenza A Negative (Negative); Influenza B2 Negative (Negative)
[2022-05-12 12:42] LABS: COVID-19 Test Negative (Negative); IDNOW Serial# 55D5AD1C
--- NOTE | 2022-05-12 12:42 | ED.GENADULT ---
HPI - General Adult General Chief complaint: Upper Respiratory Symptoms Stated complaint: coughing/ear pain/body aches Time Seen by Provider: 05/12/22 12:11 Source: patient Mode of arrival: ambulatory Limitations: no limitations History of Present Illness HPI narrative: [age] year female history of asthma presents to ED for coughing, right ear pain, headache, sinus facial pain, and states mild asthma exacerbation described as chest tightness. Patient also states body aches and chills. Patient states having symptoms since last night. Patient recently diagnosed with COVID this past April. Patient denies any leg swelling, calf pain, coughing up blood, shortness of breath/chest pain on exertion, pleurisy, recent long travel, recent surgery, history of blood clots, or estrogen hormonal use. Related Data Home Medications Medication Instructions Recorded Confirmed cetirizine 10 mg tablet (Zyrtec) 10 mg PO DAILY 07/06/20 01/12/22 clonazepam 1 mg tablet (Klonopin) 1 mg PO BID 07/06/20 01/12/22 montelukast 10 mg tablet 10 mg PO DAILY 07/06/20 01/12/22 (Singulair) naratriptan 2.5 mg tablet See Rx Instructions PO .COMPLEX 07/06/20 01/12/22 travoprost 0.004 % eye drops 1 drp ophthalmic (eye) QPM 07/06/20 01/12/22 (Travatan Z) cyclosporine 0.05 % eye drops in a 1 drp ophthalmic (eye) Q12H 01/06/21 01/12/22 dropperette (Restasis) omalizumab 150 mg subcutaneous 150 mg subcut Q4W 03/08/21 01/12/22 solution (Xolair) dorzolamide 22.3 mg-timolol 6.8 1 drp ophthalmic (eye) BID 05/08/22 mg/mL eye drops Previous Rx's Medication Instructions Recorded fluticasone propionate 50 1 spray intranasal DAILY #48 mL 03/11/21 mcg/actuation nasal spray,suspension ferrous gluconate 240 mg (27 mg 240 mg PO DAILY #30 tabs 04/19/21 iron) tablet tramadol 50 mg tablet 50 mg PO BID #60 tabs 09/20/21 duloxetine 60 mg capsule,delayed 60 mg PO DAILY #90 caps 09/21/21 release albuterol sulfate 90 mcg/actuation 2 puff inhalation Q4-6H PRN 10/03/21 aerosol inhaler Shortness Of Breath Or Wheezing #8.5 grams fluticasone propionate 220 1 puff inhalation BID #12 grams 11/25/21 mcg/actuation HFA aerosol inhaler (Flovent HFA) cholecalciferol (vitamin D3) 50 50 mcg PO DAILY #90 caps 12/12/21 mcg (2,000 unit) capsule famotidine 20 mg tablet 20 mg PO BEDTIME 90 days #90 tabs 12/12/21 methylcellulose (laxative) 500 mg 500 mg PO DAILY #90 tabs 12/12/21 tablet (Citrucel) pantoprazole 40 mg tablet,delayed 40 mg PO DAILY #90 tabs 12/12/21 release baclofen 10 mg tablet 10 mg PO BID muscle spasm #45 tabs 12/14/21 zolpidem 10 mg tablet (Ambien) 10 mg PO BEDTIME PRN Insomnia 30 12/28/21 days #30 tabs naloxone 4 mg/actuation nasal 4 mg intranasal Q2M PRN opioid 03/15/22 spray (Narcan) overdose #2 ea nirmatrelvir 300 mg (150 mg See Rx Instructions PO .COMPLEX 04/14/22 x2)-ritonavir 100 mg tablet,dose #30 ea pack(EUA) (Paxlovid) gabapentin 800 mg tablet 800 mg PO Q8H #90 tabs 04/19/22 cefpodoxime 200 mg tablet 200 mg PO Q12H 5 days #10 tabs 05/12/22 doxycycline monohydrate 100 mg 100 mg PO BID 5 days #10 caps 05/12/22 capsule prednisone 20 mg tablet 40 mg PO DAILY 5 days #10 tabs 05/12/22 Allergies Allergy/AdvReac Type Severity Reaction Status Date / Time Penicillins [PENICILLINS] Allergy Severe HIVES Verified 05/08/22 15:33 Iodinated Contrast Media Allergy Intermediate HIVES Verified 05/08/22 15:33 [IV CONTRAST] peanut [PEANUTS] Allergy Intermediate HIVES Verified 05/08/22 15:33 shellfish derived Allergy Intermediate HIVES Verified 05/08/22 15:33 [SHELLFISH DERIVED] cat dander Allergy Mild unknown Verified 05/08/22 15:33 dog dander Allergy Mild unknown Verified 05/08/22 15:33 pollen extracts Allergy Mild runny Verified 05/08/22 15:33 nose, itchy eyes Review of Systems Review of Systems: bodyaches, headache, right ear pain, sinus pain, chills, and cough Yes all other systems are reviewed and are negative [facility] Past Medical History Medical History Abdominal pain Allergic rhinitis Bipolar depression Fibromyalgia Gastritis HLA-B27 spondyloarthropathy Hx of small bowel obstruction Insomnia Lumbar spondylosis Migraine Mild intermittent asthma without complication Obesity (BMI 30-39.9) Osteoarthritis of multiple joints Palpitations Primary osteoarthritis of right hip Pure hypercholesterolemia Vitamin D deficiency Surgical History History of carpal tunnel surgery History of esophagogastroduodenoscopy (EGD) History of extraction of renal calculus History of hand surgery History of hysterectomy Hx of cholecystectomy Hx of colonoscopy Hx of cystoscopy Hx of removal of ovary Hx of unilateral oophorectomy S/P cystourethroscopy with dilation of urethral stricture (~07/21/20) Family History Family History Father Kidney problem Diabetes Mother Kidney malignancy Diabetes Brother Asthma Diabetes Social History Social History Housing: House Alcohol intake: never Patient Tobacco Use Status: Never used Tobacco e-Cigarette/Vaping Use: Never Used Second Hand Smoke Exposure: No Advance Directives: No Advance Directives Information Provided: Yes service: No Current occupational status: disabled Cognitive needs: No Hearing needs: No Vision needs: Yes Physical Exam ED Vital Signs: Vital Signs - 24 hr 05/12/22 10:38 Temperature 98.7 F Pulse Rate 103 H Respiratory Rate 16 Blood Pressure 135/80 Pulse Oximetry 97 Oxygen Delivery Method Room Air BMI result Body Mass Index 37.7 Const General: cooperative, healthy appearing, comfortable, no acute distress, well developed, alert, awake and Physically active Orientation/consciousness: oriented to person, oriented to place, oriented to time and patient oriented x3 HENMT Head: Yes normal to inspection, Yes No palpable skull fracture present, Yes normocephalic, Yes atraumatic and No abrasion Ears: hearing grossly normal bilaterally, external ears normal, TM's normal bilaterally, EAC's normal, mastoids normal and no periauricular adenopathy Face and sinus: Yes sinus tenderness (frontal and maxillary) Throat: Yes posterior oropharynx normal, Yes tonsils normal and Yes uvula midline Eyes General: appearance normal, both eyes and all related structures Neck Neck: Yes normal visual inspection, Yes full ROM, Yes no lymphadenopathy, Yes no meningeal signs, Yes trachea midline, Yes supple and No tender Chest Chest palpation & inspection: normal inspection of the chest and normal palpation of entire chest wall Resp Effort & Inspection: normal respiratory effort and able to speak in complete sentences Auscultation: clear to auscultation bilaterally Cardio Jugular venous distension: no JVD Heart sounds: S1 normal heart sound present and S2 normal heart sound present GI Inspection: Yes normal to inspection and No abdominal wall ecchymosis Palpation (GI): Soft to palpation, not firm, nontender, no guarding and not rigid General: No CVA tenderness and Yes no CVA tenderness Back/Spine/Pelvis Back: no CVA tenderness, No CVA tenderness and No back tenderness Skin General skin exam: no rashes or lesions noted and elasticity normal Neuro General: oriented to person, oriented to place, oriented to time, patient oriented x3, gait normal, tone normal, moves all extremities, no meningeal signs, no focal motor deficits and CN's II-XI intact bilaterally Cranial nerves: Yes CN's II-XII intact bilaterally Extrem General: Yes normal to inspection and Yes full ROM Psych Appearance: grossly normal, well kempt and not disheveled Course Course Course Narrative: COVID RSV swab ordered. Patient is sent for chest x-ray. Patient well-appearing Reevaluation(s) Reevaluation #1: Chest xray positive for pneumonia. Time: 02:41 Medical Decision Making [facility] Narrative Medical decision making narrative: Pneumonia Lab Data Labs: Lab Results 05/12/22 05/12/22 Range/Units 12:01 12:01 COVID-19 (HEATHER) Negative (Negative) COVID-19 Clin Com See Note Influenza Type A ([place]NEY) Negative (Negative) Influenza Type B ([place]) Negative (Negative) Influenza A & B Note See Note Discharge Plan Discharge Clinical Impression: Pneumonia Patient Disposition: Home, Self-Care Additional Instructions: Chest x-ray shows pneumonia. You will be discharged with antibiotics. Due to history of asthma also add steroids. Usually a approved inhaler as needed. Return to the ED immediately for shortness of breath, coughing up blood, leg swelling, calf pain, weakness, dizziness, checked with fever, chills, or any other concerning symptoms. Please follow up with PCP. Prescriptions: New doxycycline monohydrate 100 mg capsule 100 mg PO BID 5 Days Qty: 10 0RF cefpodoxime 200 mg tablet 200 mg PO Q12H 5 Days Qty: 10 0RF Rx Instructions: must administer with a meal/food prednisone 20 mg tablet 40 mg PO DAILY 5 Days Qty: 10 0RF No Action fluticasone propionate 50 mcg/actuation spray,suspension 1 spray intranasal DAILY Qty: 48 1RF ferrous gluconate 240 mg (27 mg iron) tablet 240 mg PO DAILY Qty: 30 1RF tramadol 50 mg tablet 50 mg PO BID Qty: 60 5RF duloxetine 60 mg capsule,delayed release(DR/EC) 60 mg PO DAILY Qty: 90 1RF albuterol sulfate 90 mcg/actuation HFA aerosol inhaler 2 puff inhalation Q4-6H PRN (Reason: Shortness Of Breath Or Wheezing) Qty: 8.5 0RF Flovent HFA 220 mcg/actuation HFA aerosol inhaler 1 puff inhalation BID Qty: 12 0RF zolpidem [Ambien] 10 mg tablet 10 mg PO BEDTIME PRN (Reason: Insomnia) 30 Days Qty: 30 0RF Paxlovid (EUA) 300 mg (150 mg x 2)-100 mg tablets,dose pack See Rx Instructions PO .COMPLEX Qty: 30 0RF Rx Instructions: take TWO 150 mg tablets of nirmatrelvir with ONE 100 mg tablet of ritonavir twice daily for 5 days PO gabapentin 800 mg tablet 800 mg PO Q8H Qty: 90 2RF travoprost [Travatan Z] 0.004 % drops 1 drp ophthalmic (eye) QPM naratriptan 2.5 mg tablet See Rx Instructions PO .COMPLEX Rx Instructions: take 1 tab at onset of headache; if no relief may repeat 1 tab after at least 4 hrs; max = 2 tabs/24 hrs PO clonazepam [Klonopin] 1 mg tablet 1 mg PO BID montelukast [Singulair] 10 mg tablet 10 mg PO DAILY cetirizine [Zyrtec] 10 mg tablet 10 mg PO DAILY Restasis 0.05 % dropperette 1 drp ophthalmic (eye) Q12H Xolair 150 mg recon soln 150 mg subcut Q4W Citrucel 500 mg tablet 500 mg PO DAILY Qty: 90 2RF Rx Instructions: take it with full glass of water pantoprazole 40 mg tablet,delayed release (DR/EC) 40 mg PO DAILY Qty: 90 2RF Rx Instructions: take one tablet half an hour before breakfast famotidine 20 mg tablet 20 mg PO BEDTIME 90 Days Qty: 90 1RF cholecalciferol (vitamin D3) 50 mcg (2,000 unit) capsule 50 mcg PO DAILY Qty: 90 3RF dorzolamide-timolol 22.3-6.8 mg/mL drops 1 drp ophthalmic (eye) BID baclofen 10 mg tablet 10 mg PO BID Qty: 45 3RF naloxone [Narcan] 4 mg/actuation spray,non-aerosol 4 mg intranasal Q2M PRN (Reason: opioid overdose) Qty: 2 0RF Rx Instructions: spray 1 dose into ONE nostril; alternate nostrils w each dose until help arrives Stand Alone Forms: Work/School Release Interventions: ED Discharge Assessment Last Done: 05/12/22 15:32 Discharge Date/Time: 05/12/22 15:32 Print Language: Togolese
== END 2022-05-12 15:32 | disposition home or self-care (01) ==
PROVIDERS: Emergency Provider Emergency Medicine Emergency Medical Services; PCP Internal Medicine
DX: J18.9 Pneumonia, unspecified organism (principal); H92.01 Otalgia, right ear; R05.9 Cough, unspecified; M79.10 Myalgia, unspecified site; Z20.822 Contact with and (suspected) exposure to COVID-19; Z79.899 Other long term (current) drug therapy
CPT/HCPCS: 71045; 87502; 87635; 99282; 99283

== ENCOUNTER 2022-06-02 15:54 | Emergency (ER) | payer OTHER, SELFPAY ==
--- NOTE | ~2022-06-02 | CT_ITS ---
EXAMINATION: CT HEAD WITHOUT CONTRAST CT CERVICAL SPINE WITHOUT CONTRAST CLINICAL INFORMATION: Head trauma COMPARISON: None. TECHNIQUE: Imaging was performed from the skull base to vertex without intravenous administration of contrast. In addition, helical noncontrast CT imaging was acquired through the cervical spine and source images were reviewed along with axial reconstructions and sagittal and coronal MPRs. [This CT examination was performed using dose optimization techniques as appropriate, variously including the following: *Automated exposure control *Adjustment of mA and/or kV according to patient size (this includes techniques or standardized protocols for targeted exams where dose is matched to indication/reason for exam; i.e. extremities or head) *Use of iterative reconstruction technique] DLP: 1538 mGy-cm FINDINGS: HEAD: No intracranial mass, hemorrhage, or midline shift is visualized. The ventricles and sulci are proportional. No extra-axial collections are identified. The paranasal sinuses and mastoid air cells are well aerated. CERVICAL SPINE: There is no evidence of acute cervical spine fracture. Vertebral bodies remain normal in height. Cervical vertebrae have normal alignment. There is multilevel degenerative spondylosis of the cervical spine with disc height narrowing and endplate spurs and facet joint arthrosis No pre- or paravertebral soft tissue abnormality is identified. Limited assessment of the lung apices is unremarkable. CT/CT cervical spine wo IV con IMPRESSION: 1. No acute intracranial pathology. 2. No CT evidence of acute cervical spine fracture or traumatic subluxation
--- NOTE | ~2022-06-02 | CT_ITS ---
EXAMINATION: CT HEAD WITHOUT CONTRAST CT CERVICAL SPINE WITHOUT CONTRAST CLINICAL INFORMATION: Head trauma COMPARISON: None. TECHNIQUE: Imaging was performed from the skull base to vertex without intravenous administration of contrast. In addition, helical noncontrast CT imaging was acquired through the cervical spine and source images were reviewed along with axial reconstructions and sagittal and coronal MPRs. [This CT examination was performed using dose optimization techniques as appropriate, variously including the following: *Automated exposure control *Adjustment of mA and/or kV according to patient size (this includes techniques or standardized protocols for targeted exams where dose is matched to indication/reason for exam; i.e. extremities or head) *Use of iterative reconstruction technique] DLP: 1538 mGy-cm FINDINGS: HEAD: No intracranial mass, hemorrhage, or midline shift is visualized. The ventricles and sulci are proportional. No extra-axial collections are identified. The paranasal sinuses and mastoid air cells are well aerated. CERVICAL SPINE: There is no evidence of acute cervical spine fracture. Vertebral bodies remain normal in height. Cervical vertebrae have normal alignment. There is multilevel degenerative spondylosis of the cervical spine with disc height narrowing and endplate spurs and facet joint arthrosis No pre- or paravertebral soft tissue abnormality is identified. Limited assessment of the lung apices is unremarkable. CT/CT head/brain wo IV con IMPRESSION: 1. No acute intracranial pathology. 2. No CT evidence of acute cervical spine fracture or traumatic subluxation
[2022-06-02 16:01] VITALS: BMI 31.8
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
[2022-06-02 16:12] VITALS: BP 147/83; PULSE 92; RESP 18; TEMP 36.4; O2SAT 97
== END 2022-06-02 18:27 | disposition home or self-care (01) ==
PROVIDERS: Emergency Provider Emergency Medicine Emergency Medical Services; PCP Internal Medicine
DX: M54.50 Low back pain, unspecified (principal); R51.9 Headache, unspecified; M54.2 Cervicalgia; Z79.899 Other long term (current) drug therapy
CPT/HCPCS: 70450; 72125; 99284

== ENCOUNTER 2022-06-22 15:51 | Outpatient (REF) | payer OTHER, SELFPAY ==
[2022-06-22 16:49] LABS: Lipase 68 U/L (8-78)
[2022-06-22 17:21] LABS: Folate 12.5 ng/mL (> or = 4.0); Vitamin B12 240 pg/mL (200-900)
[2022-06-26 18:52] LABS: Transglutaminase Ab IgG <1.0 U/mL; Transglutaminase IgA <1.0 U/mL
[2022-06-27 09:37] LABS: Rast Allergen SEE COMMENTS
== END 2022-06-22 15:52 | disposition home or self-care (01) ==
LOC: HO.LAB 15:51
PROVIDERS: PCP Internal Medicine; Visit Provider Nurse Practitioner Family
DX: Z01.82 Encounter for allergy testing (principal); R19.7 Diarrhea, unspecified; K21.9 Gastro-esophageal reflux disease without esophagitis; R10.9 Unspecified abdominal pain
CPT/HCPCS: 36415; 82607; 82746; 83690; 86003; 86364; 99212

== ENCOUNTER 2022-07-04 12:29 | Outpatient (REF) | payer MEDICAID, SELFPAY ==
[2022-07-13 18:03] LABS: Pancreatic Elastase-1 >500 mcg/g
== END 2022-07-04 12:30 | disposition home or self-care (01) ==
LOC: HO.LNP 12:29
PROVIDERS: Visit Provider Nurse Practitioner Family
DX: R10.9 Unspecified abdominal pain (principal)
CPT/HCPCS: 82656

== ENCOUNTER → 2022-07-19 15:45 | Outpatient (BNVA) | payer OTHER, SELFPAY | PROVIDERS: PCP Internal Medicine; Visit Provider Anesthesiology | DX: M53.3 Sacrococcygeal disorders, not elsewhere classified (principal); M16.11 Unilateral primary osteoarthritis, right hip; R10.31 Right lower quadrant pain; G89.29 Other chronic pain | CPT/HCPCS: 99212 ==

== ENCOUNTER → 2022-07-24 15:07 | Outpatient (BNVA) | payer OTHER, SELFPAY | PROVIDERS: PCP Internal Medicine; Visit Provider Nurse Practitioner Family | DX: K21.9 Gastro-esophageal reflux disease without esophagitis (principal); K58.2 Mixed irritable bowel syndrome; R14.0 Abdominal distension (gaseous) | CPT/HCPCS: 99212 ==

== ENCOUNTER 2022-08-15 05:48 | Outpatient (REF) | payer OTHER, SELFPAY ==
--- NOTE | ~2022-08-15 | FL_ITS ---
EXAMINATION: XR FLUOROSCOPY WITH IMAGES CLINICAL INFORMATION: Pain. Right SI joint injection. COMPARISON: Bilateral hip radiographs 05/08/2022 TECHNIQUE: Fluoroscopy Supervised By: Dr. Nicolás Thomas. Fluoroscopy Time: 0.1 minutes. Cumulative Dose: 2.83 mGy. DAP: 0.773 Gycm2. Images: 1. FINDINGS: Spinal needle overlies mid to lower right SI joint. There is contrast in the periarticular soft tissues with probable early intra-articular contrast. No vasculature communication appreciated. There are surgical clips again seen overlying the lateral pelvis. FL/FL guidance in treatment room IMPRESSION: Fluoroscopy for pain management procedure.
== END 2022-08-15 05:49 | disposition home or self-care (01) ==
LOC: CF 05:48
PROVIDERS: Visit Provider Anesthesiology
DX: M53.3 Sacrococcygeal disorders, not elsewhere classified (principal); M16.11 Unilateral primary osteoarthritis, right hip; R10.31 Right lower quadrant pain; G89.29 Other chronic pain
CPT/HCPCS: 27096; J3301

== ENCOUNTER → 2022-08-21 14:02 | Outpatient (BNVA) | payer OTHER, SELFPAY | PROVIDERS: PCP Internal Medicine; Visit Provider Nurse Practitioner Family | DX: M47.816 Spondylosis without myelopathy or radiculopathy, lumbar region (principal); E55.9 Vitamin D deficiency, unspecified | CPT/HCPCS: 99212 ==

== ENCOUNTER → 2022-08-22 14:15 | Outpatient (BNVA) | payer OTHER, SELFPAY | PROVIDERS: PCP Internal Medicine; Referring Provider Internal Medicine; Visit Provider Internal Medicine | DX: R00.2 Palpitations (principal); I49.3 Ventricular premature depolarization; M79.7 Fibromyalgia | CPT/HCPCS: 93005; 99202 ==

== ENCOUNTER → 2022-09-18 14:15 | Outpatient (BNVA) | payer OTHER, SELFPAY | PROVIDERS: PCP Internal Medicine; Visit Provider Anesthesiology | DX: M53.3 Sacrococcygeal disorders, not elsewhere classified (principal); M16.11 Unilateral primary osteoarthritis, right hip; R10.31 Right lower quadrant pain; G89.29 Other chronic pain | CPT/HCPCS: 99212 ==

== ENCOUNTER → 2022-09-20 15:00 | Outpatient (BNVA) | payer OTHER, SELFPAY | PROVIDERS: PCP Internal Medicine; Visit Provider Nurse Practitioner Family | DX: R10.9 Unspecified abdominal pain (principal); K21.9 Gastro-esophageal reflux disease without esophagitis; K58.2 Mixed irritable bowel syndrome; Z79.899 Other long term (current) drug therapy | CPT/HCPCS: 99212 ==

== ENCOUNTER 2022-09-21 12:16 | Outpatient (REF) | payer OTHER, SELFPAY ==
[2022-09-21 12:29] LABS: MANUAL DIFF FLAG NO
[2022-09-21 12:38] LABS: Basophils Absolute Auto 0.1 X10*3/uL (0.0-0.2); Basophils Percent Auto 0.6 % (0-2); Eosinophils Absolute Auto 0.2 X10*3/uL (0.0-0.4); Eosinophils Percent Auto 2.2 % (0-4); Hematocrit 39.8 % (37.0-47.0); Hemoglobin 12.5 g/dl (12.0-16.0); Imm Gran Abs Auto 0.03 X10*3/uL (0.00-0.03); Imm Gran Pct Auto 0.3 % (0.0-0.4); Lymphocytes Absolute Auto 1.3 X10*3/uL (1.2-4.9); Lymphocytes Percent Auto 14.6 % (20-40); Mean Corpuscular HGB Conc 31.4 g/dl (31.0-35.0); Mean Corpuscular Hemoglobin 27.5 pg (27.0-33.0); Mean Corpuscular Volume 87.5 fL (80.0-98.0); Monocytes Absolute Auto 0.4 X10*3/uL (0.1-1.2); Monocytes Percent Auto 4.3 % (2-11); Neutrophils Absolute Auto 6.8 x10*3/uL (2.0-8.3); Platelet Count 420 X10*3/uL (160-400); Red Blood Count 4.55 X10*6/uL (4.20-5.50); Red Cell Distribution Width 15.2 % (11.0-16.0); White Blood Count 8.7 X10*3/uL (4.8-10.8)
[2022-09-21 13:18] LABS: Alanine Aminotransferase 16 U/L (0-31); Albumin Level 4.3 g/dL (3.5-5.0); Alkaline Phosphatase 94 U/L (39-117); Anion Gap 16 (12-20); Aspartate Amino Transferase 12 U/L (5-31); Bilirubin Total 0.7 mg/dL (0.0-1.0); Blood Urea Nitrogen 10 mg/dL (9-16); C Reactive Protein 0.66 mg/dL (< or = 0.50); Calcium 9.6 mg/dL (8.4-10.2); Carbon Dioxide 24 mmol/L (22-29); Chloride 109 mmol/L (96-108); Cholesterol 202 mg/dL; Estimated Glomerular Filt Rate > 60; Glucose Fasting 86 mg/dL (60-99); HDL Cholesterol 56 mg/dL; LDL Cholesterol Calculated 114 mg/dl; Potassium 4.6 mmol/L (3.3-5.1); Sodium 144 mmol/L (135-145); Total Protein 7.2 g/dL (6.5-8.0); Triglycerides 160 mg/dL
[2022-09-21 13:27] LABS: Erythrocyte Sedimentation Rate 25 MM/HR (0-20)
[2022-09-21 13:34] LABS: TSH reflex Free T4 1.25 uIU/mL (0.32-4.0); Vitamin D 25-OH Total 37.8 ng/mL (>30)
== END 2022-09-21 12:17 | disposition home or self-care (01) ==
LOC: HO.LAB 12:16
PROVIDERS: Absent Provider Internal Medicine; PCP Internal Medicine; Visit Provider Nurse Practitioner Family
DX: E78.00 Pure hypercholesterolemia, unspecified (principal); E55.9 Vitamin D deficiency, unspecified; M54.16 Radiculopathy, lumbar region; I10 Essential (primary) hypertension
CPT/HCPCS: 36415; 80053; 80061; 82306; 84443; 85025; 85652; 86140

== ENCOUNTER → 2022-10-02 13:58 | Outpatient (BNVA) | payer OTHER, SELFPAY | PROVIDERS: PCP Internal Medicine; Visit Provider Nurse Practitioner Family | DX: Z51.81 Encounter for therapeutic drug level monitoring (principal); F11.20 Opioid dependence, uncomplicated; M47.816 Spondylosis without myelopathy or radiculopathy, lumbar region; E55.9 Vitamin D deficiency, unspecified | CPT/HCPCS: 99212 ==

== ENCOUNTER 2022-10-24 06:38 | Outpatient (REF) | payer OTHER, SELFPAY ==
--- NOTE | ~2022-10-24 | FL_ITS ---
EXAMINATION: XR FLUOROSCOPY WITH IMAGES CLINICAL INFORMATION: M16.11 - Unilateral primary osteoarthritis, right hip COMPARISON: Bilateral hip radiographs 05/08/2022 TECHNIQUE: Fluoroscopy Supervised By: Dr. Nicolás Thomas. Fluoroscopy Time: 0.2 minutes. Cumulative Dose: 6.26 mGy. DAP: 1.70 Gycm2. Images: 5. FINDINGS: There is spinal needle with tip at the superior lateral aspect right hip. There is intracapsular contrast seen. Osteoarthritic changes are present right hip joint. FL/FL guidance in treatment room IMPRESSION: Fluoroscopy for pain management procedure.
== END 2022-10-24 06:39 | disposition home or self-care (01) ==
LOC: CF 06:38
PROVIDERS: Visit Provider Anesthesiology
DX: M16.11 Unilateral primary osteoarthritis, right hip (principal)
CPT/HCPCS: 20610

== ENCOUNTER → 2022-11-22 10:14 | Outpatient (BNVA) | payer OTHER, SELFPAY | PROVIDERS: PCP Internal Medicine; Visit Provider Anesthesiology | DX: M53.3 Sacrococcygeal disorders, not elsewhere classified (principal); M16.11 Unilateral primary osteoarthritis, right hip; R10.31 Right lower quadrant pain; G89.29 Other chronic pain | CPT/HCPCS: 99212 ==

== ENCOUNTER → 2022-12-13 15:04 | Outpatient (BNVA) | payer OTHER, SELFPAY | PROVIDERS: PCP Internal Medicine; Visit Provider Nurse Practitioner Family | DX: K21.9 Gastro-esophageal reflux disease without esophagitis (principal); K58.2 Mixed irritable bowel syndrome; R14.0 Abdominal distension (gaseous) | CPT/HCPCS: 99212 ==

== ENCOUNTER → 2022-12-28 07:59 | Outpatient (BNVA) | payer OTHER, SELFPAY | PROVIDERS: PCP Internal Medicine; Visit Provider Anesthesiology | DX: M53.3 Sacrococcygeal disorders, not elsewhere classified (principal); M16.11 Unilateral primary osteoarthritis, right hip; G89.29 Other chronic pain; R10.31 Right lower quadrant pain | CPT/HCPCS: 99212 ==

== ENCOUNTER 2022-12-28 08:29 | Outpatient (REF) | payer OTHER, SELFPAY ==
[2022-12-28 10:51] LABS: Amphetamine Screen Urine Not Detected (Not Detect); Barbiturates, Urine Not Detected (Not Detect); Benzodiazepines Screen Urine Not Detected (Not Detect); Cannabinoid Screen Urine Not Detected (Not Detect); Cocaine Screen Urine Not Detected (Not Detect); Fentanyl, urine Not Detected (Not Detect); Opiate Screen Urine Not Detected (Not Detect); Phencyclidine Screen Urine Not Detected (Not Detect)
== END 2022-12-28 08:30 | disposition home or self-care (01) ==
LOC: HO.10HDL 08:29
PROVIDERS: Visit Provider Nurse Practitioner Family
DX: Z79.899 Other long term (current) drug therapy (principal)
CPT/HCPCS: 80307; 80373

== ENCOUNTER 2023-01-18 11:13 | Outpatient (REF) | payer OTHER, SELFPAY ==
[2023-01-18 13:28] LABS: MANUAL DIFF FLAG NO
[2023-01-18 13:42] LABS: Basophils Absolute Auto 0.1 X10*3/uL (0.0-0.2); Basophils Percent Auto 0.7 % (0-2); Eosinophils Absolute Auto 0.2 X10*3/uL (0.0-0.4); Eosinophils Percent Auto 2.4 % (0-4); Hematocrit 39.3 % (37.0-47.0); Imm Gran Abs Auto 0.03 X10*3/uL (0.00-0.03); Imm Gran Pct Auto 0.4 % (0.0-0.4); Lymphocytes Percent Auto 13.7 % (20-40); Mean Corpuscular HGB Conc 30.5 g/dl (31.0-35.0); Mean Corpuscular Hemoglobin 27.1 pg (27.0-33.0); Mean Corpuscular Volume 88.7 fL (80.0-98.0); Mean Platelet Volume 10.4 fL (9.4-12.3); Monocytes Absolute Auto 0.4 X10*3/uL (0.1-1.2); Monocytes Percent Auto 5.1 % (2-11); Neutrophils Absolute Auto 5.9 x10*3/uL (2.0-8.3); Neutrophils Percent Auto 77.7 % (45-73); Platelet Count 374 X10*3/uL (160-400); Red Blood Count 4.43 X10*6/uL (4.20-5.50); Red Cell Distribution Width 13.9 % (11.0-16.0); White Blood Count 7.6 X10*3/uL (4.8-10.8)
[2023-01-18 13:52] LABS: Appearance Urine Clear; Color Urine Yellow; Glucose Urine UA Negative (Negative); Leukocyte Esterase Urine Moderate (2+) (Negative); Nitrite Urine Negative (Negative); Specific Gravity - Urine 1.015 (1.005-1.025); UMIC TRIGGER UACC YES; Urine Blood Moderate (2+) (Negative); Urine Ketones Negative (Negative); Urine Protein Trace mg/dL (Neg-Trace)
[2023-01-18 13:54] LABS: Bacteria Urine None Seen (None Seen); Hyaline Casts Urine 0-2 /LPF (0-2); RBC Urine >20 /HPF (0-2); UACC Culture Trigger YES; WBC Urine 21-50 /HPF (0-5)
[2023-01-18 14:00] LABS: Alanine Aminotransferase 19 U/L (0-31); Albumin Level 4.1 g/dL (3.5-5.0); Alkaline Phosphatase 92 U/L (39-117); Anion Gap 16 (12-20); Aspartate Amino Transferase 17 U/L (5-31); Bilirubin Total 0.8 mg/dL (0.0-1.0); Blood Urea Nitrogen 11 mg/dL (9-16); Calcium 9.9 mg/dL (8.4-10.2); Carbon Dioxide 25 mmol/L (22-29); Chloride 106 mmol/L (96-108); Cholesterol 186 mg/dL; Estimated Glomerular Filt Rate > 60; Glucose Fasting 85 mg/dL (60-99); HDL Cholesterol 52 mg/dL; LDL Cholesterol Calculated 108 mg/dl; Potassium 4.6 mmol/L (3.3-5.1); Sodium 142 mmol/L (135-145); Total Protein 7.4 g/dL (6.5-8.0); Triglycerides 132 mg/dL
[2023-01-18 14:17] LABS: TSH reflex Free T4 1.42 uIU/mL (0.32-4.0)
== END 2023-01-18 11:14 | disposition home or self-care (01) ==
LOC: HO.10HDL 11:13
PROVIDERS: Visit Provider Internal Medicine
DX: E55.9 Vitamin D deficiency, unspecified (principal); E78.00 Pure hypercholesterolemia, unspecified; I10 Essential (primary) hypertension; R30.0 Dysuria
CPT/HCPCS: 36415; 80053; 80061; 81001; 82306; 84443; 85025; 87086; 87147

== ENCOUNTER 2023-01-23 15:32 | Outpatient (AMB) | payer OTHER, SELFPAY ==
[2023-01-23 15:33] VITALS: BP 126/84; PULSE 83; O2SAT 96; BMI 34.7
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
== END 2023-01-23 16:24 | disposition home or self-care (01) ==
PROVIDERS: Visit Provider Internal Medicine
DX: R00.2 Palpitations (principal); E78.00 Pure hypercholesterolemia, unspecified; J45.20 Mild intermittent asthma, uncomplicated; F31.9 Bipolar disorder, unspecified; G43.909 Migraine, unspecified, not intractable, without status migrainosus; J30.9 Allergic rhinitis, unspecified; E55.9 Vitamin D deficiency, unspecified; M47.899 Other spondylosis, site unspecified; M15.9 Polyosteoarthritis, unspecified; M79.7 Fibromyalgia; G47.00 Insomnia, unspecified; E66.9 Obesity, unspecified
CPT/HCPCS: 99214

== ENCOUNTER 2023-01-25 09:35 | Day surgery (SDC) | payer OTHER, SELFPAY ==
[2023-01-22 14:43] VITALS: BMI 35.2
--- NOTE | 2023-01-24 08:54 | P.CONAN_ITS ---
Documented by User: Gisela Conway NP 01/24/23 08:59 HPI - Anesthesia Eval Consult details Narrative: 52yo F for Right Hip Intra-Articular Therapeutic Injection s/p SI injection 02/2022 with TIVA PMFSH Active Problems Active Problems: All Active Problems (Updated 01/22/23 @ 14:41 by Denise Graham RN) Right sciatic nerve pain (Acute) Compression fracture of body of thoracic vertebra (Acute) Trigger finger, right middle finger (Acute) Annual physical exam (Acute) Right ear pain (Acute) Ingrown toenail of both feet (Acute) Acquired trigger finger of both middle fingers (Acute) Bilateral lumbar radiculopathy (Acute) Elevated blood pressure reading in office without diagnosis of hypertension (Acute) Sacroiliitis (Acute) Sacroiliac joint pain (Acute) Upper respiratory tract infection (Acute) Chronic pain of right groin (Acute) Osteoarthritis of right hip (Acute) Pneumonia (Acute) Cervicalgia (Acute) Chest pain (Acute) Palpitations (Acute) Annual physical exam (Acute) PVC (premature ventricular contraction) (Acute) Recurrent cold sores (Acute) Encounter for medication monitoring (Acute) Palpitations (Acute) Gastritis (Acute) Fibromyalgia (Acute) Abdominal pain (Acute) Obesity (BMI 30-39.9) (Acute) Bipolar depression (Acute) Insomnia (Acute) HLA-B27 spondyloarthropathy (Acute) Osteoarthritis of multiple joints (Acute) Vitamin D deficiency (Acute) Migraine (Acute) Allergic rhinitis (Acute) Mild intermittent asthma without complication (Acute) Pure hypercholesterolemia (Acute) Primary osteoarthritis of right hip (Acute) Lumbar spondylosis (Acute) Past Medical History Medical History Abdominal pain Allergic rhinitis Bipolar depression Encounter for medication monitoring Fibromyalgia Gastritis HLA-B27 spondyloarthropathy Hx of small bowel obstruction Insomnia Lumbar spondylosis Migraine Mild intermittent asthma without complication Obesity (BMI 30-39.9) Osteoarthritis of multiple joints Palpitations Primary osteoarthritis of right hip Pure hypercholesterolemia Sacroiliac joint pain Vitamin D deficiency Family History Family History Father Kidney problem Diabetes Mother Kidney malignancy Diabetes Brother Asthma Diabetes Family history of problems with anesthesia: No Surgical History Surgical History History of carpal tunnel surgery History of esophagogastroduodenoscopy (EGD) History of extraction of renal calculus History of hand surgery History of hysterectomy Hx of cholecystectomy Hx of colonoscopy Hx of cystoscopy Hx of removal of ovary Hx of unilateral oophorectomy S/P cystourethroscopy with dilation of urethral stricture (~07/21/20) History of Problems with Anesthesia: No Social History Social History Housing: House Alcohol intake: never Patient Tobacco Use Status: Never used Tobacco e-Cigarette/Vaping Use: Never Used Second Hand Smoke Exposure: No Use of substances other than those prescribed or required for medical reasons: No Are you DNR?: No Advance Directives: No Advance Directives Information Provided: Yes service: No Current occupational status: disabled Cognitive needs: No Hearing needs: No Vision needs: Yes Meds Allergies Allergy/AdvReac Type Severity Reaction Status Date / Time Penicillins [PENICILLINS] Allergy Severe HIVES Verified 01/23/23 16:04 Iodinated Contrast Media Allergy Intermediate HIVES Verified 01/23/23 16:04 [IV CONTRAST] peanut [PEANUTS] Allergy Intermediate HIVES Verified 01/23/23 16:04 shellfish derived Allergy Intermediate HIVES Verified 01/23/23 16:04 [SHELLFISH DERIVED] cat dander Allergy Mild unknown Verified 01/23/23 16:04 dog dander Allergy Mild unknown Verified 01/23/23 16:04 pollen extracts Allergy Mild runny Verified 01/23/23 16:04 nose, itchy eyes triamcinolone Allergy Unknown Verified 01/25/23 08:47 Home Medications Medication Instructions Recorded Confirmed Last Taken Type cetirizine 10 mg tablet (Zyrtec) 10 mg PO DAILY 07/06/20 01/25/23 Unknown History clonazepam 1 mg tablet (Klonopin) 1 mg PO BID 07/06/20 01/25/23 02/10/22 History montelukast 10 mg tablet 10 mg PO DAILY 07/06/20 01/25/23 Unknown History (Singulair) naratriptan 2.5 mg tablet See Rx Instructions PO .COMPLEX 07/06/20 01/25/23 Unknown History travoprost 0.004 % eye drops 1 drp ophthalmic (eye) QPM 07/06/20 01/25/23 Unknown History (Travatan Z) cyclosporine 0.05 % eye drops in a 1 drp ophthalmic (eye) Q12H 01/06/21 01/25/23 Unknown History dropperette (Restasis) omalizumab 150 mg subcutaneous 150 mg subcut Q4W 03/08/21 01/25/23 Unknown History solution (Xolair) dorzolamide 22.3 mg-timolol 6.8 1 drp ophthalmic (eye) BID 05/08/22 01/25/23 Unknown History mg/mL eye drops bupropion HCl 150 mg 24 hr tablet, 150 mg PO QAM 09/18/22 01/25/23 Unknown H istory extended release epinephrine 0.3 mg/0.3 mL IM anaphylaxis 09/18/22 01/23/23 Unknown History injection, auto-injector ondansetron HCl 4 mg tablet 4 mg PO Q8H PRN nausea/vomiting 09/18/22 01/25/23 Unknown History Exam Exam Date and Time: January 24, 2023 0854 Height,Weight and Vital Signs: Height 5 ft 3 in Weight 90.265 kg Narrative Narrative: EKG 08/2022 sinus rhythm at 63/Min; no significant ST-T changes and otherwise unremarkable.? Normal WI and corrected QT. ECHO 02/2022 Conclusions: - The left ventricular systolic function is normal.? The ? calculated ejection fraction is 60% by biplane method. ? - No obvious valvular pathology seen on this study.? Assessment and Plan Assessment Anesthesia Assessment: Chart Reviewed Final Anesthetic Review Family History of Problems with Anesthesia: No History of Problems with Anesthesia: No Documented by User: Ya Olivas MD 01/25/23 11:58 PMFSH Past Medical History Medical History Abdominal pain Allergic rhinitis Bipolar depression Encounter for medication monitoring Fibromyalgia Gastritis HLA-B27 spondyloarthropathy Hx of small bowel obstruction Insomnia Lumbar spondylosis Migraine Mild intermittent asthma without complication Obesity (BMI 30-39.9) Osteoarthritis of multiple joints Palpitations Primary osteoarthritis of right hip Pure hypercholesterolemia Sacroiliac joint pain Vitamin D deficiency Family History Family History Father Kidney problem Diabetes Mother Kidney malignancy Diabetes Brother Asthma Diabetes Surgical History Surgical History History of carpal tunnel surgery History of esophagogastroduodenoscopy (EGD) History of extraction of renal calculus History of hand surgery History of hysterectomy Hx of cholecystectomy Hx of colonoscopy Hx of cystoscopy Hx of removal of ovary Hx of unilateral oophorectomy S/P cystourethroscopy with dilation of urethral stricture (~07/21/20) Social History Social History Housing: House Alcohol intake: never Patient Tobacco Use Status: Never used Tobacco e-Cigarette/Vaping Use: Never Used Second Hand Smoke Exposure: No Use of substances other than those prescribed or required for medical reasons: No Are you DNR?: No Advance Directives: No Advance Directives Information Provided: Yes service: No Current occupational status: disabled Cognitive needs: No Hearing needs: No Vision needs: Yes Meds Allergies Allergy/AdvReac Type Severity Reaction Status Date / Time Penicillins [PENICILLINS] Allergy Severe HIVES Verified 01/23/23 16:04 Iodinated Contrast Media Allergy Intermediate HIVES Verified 01/23/23 16:04 [IV CONTRAST] peanut [PEANUTS] Allergy Intermediate HIVES Verified 01/23/23 16:04 shellfish derived Allergy Intermediate HIVES Verified 01/23/23 16:04 [SHELLFISH DERIVED] cat dander Allergy Mild unknown Verified 01/23/23 16:04 dog dander Allergy Mild unknown Verified 01/23/23 16:04 pollen extracts Allergy Mild runny Verified 01/23/23 16:04 nose, itchy eyes triamcinolone Allergy Unknown Verified 01/25/23 08:47 Home Medications Medication Instructions Recorded Confirmed Last Taken Type cetirizine 10 mg tablet (Zyrtec) 10 mg PO DAILY 07/06/20 01/25/23 Unknown History clonazepam 1 mg tablet (Klonopin) 1 mg PO BID 07/06/20 01/25/23 02/10/22 History montelukast 10 mg tablet 10 mg PO DAILY 07/06/20 01/25/23 Unknown History (Singulair) naratriptan 2.5 mg tablet See Rx Instructions PO .COMPLEX 07/06/20 01/25/23 Unknown History travoprost 0.004 % eye drops 1 drp ophthalmic (eye) QPM 07/06/20 01/25/23 Unknown History (Travatan Z) cyclosporine 0.05 % eye drops in a 1 drp ophthalmic (eye) Q12H 01/06/21 01/25/23 Unknown History dropperette (Restasis) omalizumab 150 mg subcutaneous 150 mg subcut Q4W 03/08/21 01/25/23 Unknown History solution (Xolair) dorzolamide 22.3 mg-timolol 6.8 1 drp ophthalmic (eye) BID 05/08/22 01/25/23 Unknown History mg/mL eye drops bupropion HCl 150 mg 24 hr tablet, 150 mg PO QAM 09/18/22 01/25/23 Unknown History extended release epinephrine 0.3 mg/0.3 mL IM anaphylaxis 09/18/22 01/23/23 Unknown History injection, auto-injector ondansetron HCl 4 mg tablet 4 mg PO Q8H PRN nausea/vomiting 09/18/22 01/25/23 Unknown History Exam Airway Mallampati Class: III TM Dist: >3cm Neck ROM: Full Heart: rrr Lungs: cta Assessment and Plan Assessment Anesthesia Assessment: Anesthesia Plan Discussed Final Anesthetic Review NPO: Yes ASA Class: III Final Preanesthetic Review: No Changes in Pt Med Stat, Meds/Allgs Chart Reviewed, Consent Obtained/Reviewed and Anes Risks/Benef Reviewed Patient Risk: Low Procedure Risk: Low Anesthetic Plan Anesthetic Plan: MAC: Disposition: Standard PACU
--- NOTE | ~2023-01-25 | FL_ITS ---
EXAMINATION: XR FLUOROSCOPY WITH IMAGES CLINICAL INFORMATION: Hip intra-articular therapeutic hip injection. COMPARISON: None available. TECHNIQUE: Fluoroscopy Supervised By: Dr. Thomas. Fluoroscopy Time: 0.2 minutes. Cumulative Dose: 8.58 mGy. DAP: 2.04 Gycm2. Images: 1. FINDINGS: Images demonstrate needle placement and contrast injection of the right hip joint FL/FL guidance in OR IMPRESSION: Fluoroscopy guidance for right hip injection
[2023-01-25 10:18] VITALS: BP 143/72; PULSE 91; RESP 18; TEMP 36.4; O2SAT 97; BMI 38.5
[2023-01-25] MEDS: Lactated Ringers 1,000 ML 100 ML IVCONT (10:49)
--- NOTE | 2023-01-25 11:31 | MHC.SHP ---
Pre-Procedural Eval Section A Date of Service: 01/25/23 The patient is an INPATIENT: No Changes since office visit: Yes Patient answered all questions The History & Physical has been completed within 30 days and I have reviewed it.: No Section B Chief Complaint: Unilateral primary osteoarthritis, right hip Details of Present Illness: as above Relevant Family History (Specify if Yes): No Relevant Social History: None Present Medications: None Medical History: No relevant PMH History of Previous Operations: No relevant previous surgery Allergies: Allergies Allergy/AdvReac Type Severity Reaction Status Date / Time Penicillins [PENICILLINS] Allergy Severe HIVES Verified 01/23/23 16:04 Iodinated Contrast Media Allergy Intermediate HIVES Verified 01/23/23 16:04 [IV CONTRAST] peanut [PEANUTS] Allergy Intermediate HIVES Verified 01/23/23 16:04 shellfish derived Allergy Intermediate HIVES Verified 01/23/23 16:04 [SHELLFISH DERIVED] cat dander Allergy Mild unknown Verified 01/23/23 16:04 dog dander Allergy Mild unknown Verified 01/23/23 16:04 pollen extracts Allergy Mild runny Verified 01/23/23 16:04 nose, itchy eyes triamcinolone Allergy Unknown Verified 01/25/23 08:47 Review of Systems Sugical H&P ROS: Negative: Cardiovascular, Respiratory, Neurological, Psychiatric, Hem-Onc, Allergic/Immunologic, Gastrointestinal, Genitourinary, Integumentary, Endocrine and Eyes/Ears/Nose/Throat and Yes, Specify: Constitution (morbid obesity) and Musculoskeletal (osteoarthritis) Exam Surgical H&P Exam: Normal: HEENT, Normal: Heart, Normal: Lungs, Normal: Extremities, Normal: Skin and Normal: Neurological and Significant Findings: Abdomen (enlarged 2 to i/a &s/q fat) Plan Diagnosis/Plan: Unchanged I have reviewed the history and physical and performed a pertinent physical examination on my patient. No changes have occurred unless specified. Time Spent With Patient Time: Total time managing care of this patient today ____ minutes.
[2023-01-25 12:15] VITALS: BP 121/72; PULSE 86; RESP 12; TEMP 36.7; O2SAT 93
--- NOTE | 2023-01-25 12:19 | PM.OP ---
Brief Operative Note Date of Service: 01/25/23 Pre-op diagnosis: right hip osteoarthritis Post-op diagnosis: same Procedure: right hip steroid injection Surgeon: Nicolás Thomas MD Anesthesia: MAC Was an [employer] used for this Procedure?: No Estimated blood loss (mL): 0 Condition: stable Disposition: PACU
[2023-01-25 12:20] VITALS: BP 121/80; PULSE 76; RESP 16; O2SAT 99
--- NOTE | 2023-01-25 12:24 | W.PM.OPN ---
Operative Note Operative Note Date of Service: 01/25/23 Narrative: Right therapeutic Intra-articular hip injection. - Informed consent was explained to the patient. All questions were explained and answered.? The patient was taken inside of the operating room where she was positioned left lateral decubitus on operating table..?Time-out was performed delineating patient's name and date of , correct site, side, the nature of the procedure, patient's allergy, preoperative antibiotic if needed, need for VT prophylaxis..? All operating room staff was participating in OR time-out procedure.? ASA monitor were applied and the patient was deeply sedated. Right hip area of the patient was prepped with ChloraPrep and draped with sterile towels.? Sterilely draped C-arm was brought over the operating field and picture of left and right lateral views of the bilateral hip joints were delineated on the screen.? The smaller joint silhouette was chosen as the target.? Direction of the femoral neck was noted and the projection of that direction was delineated on the skin with skin markers.? Projection of the right trochanter to the skin was chosen as the initial needle insertion point.? After that the skin and subcutaneous tissues was anesthetized with 2% lidocaine 2.5 mL.? 22 gauge 5 in long needle was inserted through the skin and started to advance to the joint space under anterior posterior view.? When needle entered the capsule of the joint small amount of the contrast was injected delineating intra-articular space.? After that treatment solution containing ropivacaine 0.5% and 40 mg of Kenalog was injected into the joint.? The needle was withdrawn sterile dressing was applied.?The patient tolerated the procedure well.
[2023-01-25 12:25] VITALS: BP 111/84; PULSE 76; RESP 16; O2SAT 98
[2023-01-25 12:29] VITALS: BP 107/77; PULSE 84; RESP 20; TEMP 36.7; O2SAT 96
== END 2023-01-25 12:59 | disposition home or self-care (01) ==
PROVIDERS: PCP Internal Medicine; Visit Provider Anesthesiology
PROC: (CPT 20610; principal; 2023-01-25 11:30)
DX: M16.11 Unilateral primary osteoarthritis, right hip (principal); M53.3 Sacrococcygeal disorders, not elsewhere classified; M79.7 Fibromyalgia; G89.29 Other chronic pain; R10.31 Right lower quadrant pain; E78.00 Pure hypercholesterolemia, unspecified; E55.9 Vitamin D deficiency, unspecified; F31.9 Bipolar disorder, unspecified; J45.20 Mild intermittent asthma, uncomplicated; E66.9 Obesity, unspecified; Z68.35 Body mass index [BMI] 35.0-35.9, adult; Z79.51 Long term (current) use of inhaled steroids; Z79.899 Other long term (current) drug therapy; Z88.0 Allergy status to penicillin; Z88.8 Allergy status to other drugs, medicaments and biological substances; Z91.041 Radiographic dye allergy status
CPT/HCPCS: 20610; J1100; J2795; J3301; Q9965; Q9967

== ENCOUNTER 2023-02-12 15:36 | Outpatient (AMB) | payer OTHER, SELFPAY ==
--- NOTE | 2023-02-12 15:44 | MHC.OFFVIS ---
Intake Vital Signs 02/12/23 15:45 Height 5 ft 3 in Weight 194 lb BMI 34.4 BP 140/85 H Blood Pressure Location Rt brachial Position Sitting Respiration 18 Pulse 80 Pulse Source Pulse Oximeter Pulse Oximetry (%) 98 Oxygen Delivery Method Room Air Intake Visit Reasons: 3 Month Follow Up Intake Note: patient comes in for a follow up. Allergies Penicillins [PENICILLINS] Allergy (Severe, Verified 02/12/23 15:44) HIVES Iodinated Contrast Media [IV CONTRAST] Allergy (Intermediate, Verified 02/12/23 15:44) HIVES peanut [PEANUTS] Allergy (Intermediate, Verified 02/12/23 15:44) HIVES shellfish derived [SHELLFISH DERIVED] Allergy (Intermediate, Verified 02/12/23 15:44) HIVES cat dander Allergy (Mild, Verified 02/12/23 15:44) unknown dog dander Allergy (Mild, Verified 02/12/23 15:44) unknown pollen extracts Allergy (Mild, Verified 02/12/23 15:44) runny nose, itchy eyes triamcinolone Allergy (Verified 02/12/23 15:44) Unknown HPI HPI Comments History of Present Illness Details Yanci is in my office after therapeutic hip steroid injection performed on 01/25/2023. She reports good pain relief, she reports better mobility better social interactions better activities of daily living. In the past she received hip steroid injections on the right which she was performed on 10/24/2022.? She reported slow improvement after the procedure.? ? The pain in the anterior sheen was getting much better. Wants me to perform another hip steroid injection. After 01/24/2023 I do not mind to perform the procedure. However we discussed today possibility of treatment of her hip pain with total hip replacement. She is very reluctant to go for the procedure. We discussed the risks and benefits of the injections versus THR. We agreed that we will reconvene after the steroid injection this time and discuss THR again. Prior: Longstanding history with our office.? Last time she was here? complaining on pain in the right hip radiating to the right thigh all the way to the anterior sheen and into the right groin as well.? She received right therapeutic SI joint injection on 08/15/2022 from me.? She reported that pain in the back disappeared.? However she reports severe pain at the lateral hip and anterior ingram on the right.? Previously she had an x-ray in her hip joints and that demonstrated mild hip osteoarthritis.? Today on physical exam attention was attracted to significant pain increase with lateral and medial rotation of the hip with radiation of the pain into the anterior thigh and into the groin.? I offered this patient to have therapeutic intra-articular hip steroid injection.? I will perform it as soon as possible.? She received left sacroiliac joint injection with very good results.? She now reports that the the same pain she develops on the right.? On the x-ray which she received in our radiology department the pictures of the bilateral hips demonstrates some mild osteoarthritis more prominent on the left.? I do not think that this is her pain generator.? At the same time she has completely intact sacroiliac joints bilaterally but injection into the left sacroiliac joint resulted into good pain relief.? Left sacroiliac joint injection was performed in March of 2022. In the past she received radiofrequency ablation MBB of the lower back on the left [facility] Medical History Abdominal pain Allergic rhinitis Bipolar depression Encounter for medication monitoring Fibromyalgia Gastritis HLA-B27 spondyloarthropathy Hx of small bowel obstruction Insomnia Lumbar spondylosis Migraine Mild intermittent asthma without complication Obesity (BMI 30-39.9) Osteoarthritis of multiple joints Palpitations Primary osteoarthritis of right hip Pure hypercholesterolemia Sacroiliac joint pain Vitamin D deficiency Surgical History History of carpal tunnel surgery History of esophagogastroduodenoscopy (EGD) History of extraction of renal calculus History of hand surgery History of hysterectomy Hx of cholecystectomy Hx of colonoscopy Hx of cystoscopy Hx of removal of ovary Hx of unilateral oophorectomy S/P cystourethroscopy with dilation of urethral stricture (~07/21/20) Family History Father Kidney problem Diabetes Mother Kidney malignancy Diabetes Brother Asthma Diabetes Social History Housing: House Alcohol intake: never Patient Tobacco Use Status: Never used Tobacco e-Cigarette/Vaping Use: Never Used Second Hand Smoke Exposure: No service: No Current occupational status: disabled Cognitive needs: No Hearing needs: No Vision needs: Yes Review of Systems Const All systems reviewed & are unremarkable except as noted in HPI and below ENT Reports Normal hearing present Neuro Reports Normal hearing present and Denies Abnormal speech present Physical Exam Vital Signs: Last Vital Signs Pulse 80 02/12/23 15:45 Resp 18 02/12/23 15:45 BP 140/85 H 02/12/23 15:45 Pulse Ox 98 02/12/23 15:45 Oxygen Delivery Method Room Air 02/12/23 15:45 BMI result Body Mass Index 34.4 Const General: healthy appearing, no acute distress and well developed Nutritional Appearance: obese Orientation/consciousness: patient oriented x3 HEENT Head: Yes normocephalic and Yes atraumatic Ears: hearing grossly normal bilaterally Mouth: Normal oral and palatal mucosa present Throat: Yes posterior oropharynx normal, Yes tonsils normal and Yes uvula midline Eyes General: appearance normal, both eyes and all related structures Eyelids: Yes eyelids normal Pupils: Equal, round and reactive pupils present EOM: EOMs intact bilaterally Neck Neck: Yes normal visual inspection and Yes no JVD Resp Effort & Inspection: normal respiratory effort, able to speak in complete sentences, normal respiratory pattern, no audible wheezes and no cough Cardio Jugular venous distension: no JVD GI Inspection: Yes obesity Back/Spine/Pelvis Other: Lateral rotation and medial rotation of the right hip causes severe discomfort in the trochanteric area as well as a in the anterior thigh as well as right groin. Skin General skin exam: elasticity normal, turgor normal and dry skin Neuro General: patient oriented x3 Cranial nerves: Yes Equal, round and reactive pupils present and Yes Normal hearing present Cognition (Neuro): normal cognition Speech: No Abnormal speech present Psych Appearance: grossly normal Mental Status: mental status grossly normal Speech and movement: Normal speech and movement present Affect: normal affect Attitude: cooperative Thought process: Normal thought process present Thought content: Normal thought content present Insight: Good insight present (Psych) Judgement: Good judgement present (Psych) Assessment & Plan Assessment & Plan (1) Sacroiliac joint pain: Code(s): M53.3 - Sacrococcygeal disorders, not elsewhere classified (2) Primary osteoarthritis of right hip: Code(s): M16.11 - Unilateral primary osteoarthritis, right hip (3) Chronic pain of right groin: Code(s): R10.31 - Right lower quadrant pain; G89.29 - Other chronic pain (4) Osteoarthritis of right hip: Code(s): M16.11 - Unilateral primary osteoarthritis, right hip Plan Good results of RFA on the left and SI joint injection on the left. Was complaining after that on pain on the right. Received injection of the right hip intra-articular with steroids. Developed the allergic reaction with rash in the face. Allergic to triamcinolone. Received 1 more injection on 02/01/2023. Reports good pain relieve after the injection. Reluctant to go for total hip replacement. PRP was discussed briefly. Patient cannot afford it. Next appointment when her pain will come back. Will schedule her for another injection if is not within 3 months of this 1. Coding Level of Care Code Est Pt Level 3 (29156) Diagnoses Sacroiliac joint pain M53.3 Primary osteoarthritis of right hip M16.11 Chronic pain of right groin R10.31; G89.29 Osteoarthritis of right hip M16.11
[2023-02-12 15:45] VITALS: BP 140/85; PULSE 80; RESP 18; O2SAT 98; BMI 34.4
== END 2023-02-12 16:01 | disposition home or self-care (01) ==
PROVIDERS: PCP Internal Medicine; Visit Provider Anesthesiology
DX: M53.3 Sacrococcygeal disorders, not elsewhere classified (principal); M16.11 Unilateral primary osteoarthritis, right hip; R10.31 Right lower quadrant pain; G89.29 Other chronic pain
CPT/HCPCS: 99213

== ENCOUNTER → 2023-02-12 15:36 | Outpatient (BNVA) | payer OTHER, SELFPAY | PROVIDERS: PCP Internal Medicine; Visit Provider Anesthesiology | DX: M79.7 Fibromyalgia (principal); M53.3 Sacrococcygeal disorders, not elsewhere classified; M16.11 Unilateral primary osteoarthritis, right hip; R10.13 Epigastric pain | CPT/HCPCS: 99212 ==

== ENCOUNTER 2023-02-13 10:39 | Emergency (ER) | payer OTHER, SELFPAY ==
--- NOTE | ~2023-02-13 | CT_ITS ---
EXAMINATION: CT ABDOMEN AND PELVIS WITHOUT CONTRAST CLINICAL INFORMATION: Right lower quadrant pain COMPARISON: CT abdomen and pelvis 12/23/2020. TECHNIQUE: Multidetector volumetric imaging was performed from the superior aspect of the liver through the pubic symphysis. Sagittal and coronal reformatted images were obtained on the technologist's workstation. This CT examination was performed using dose optimization techniques as appropriate, variously including the following: *Automated exposure control *Adjustment of mA and/or kV according to patient size (this includes techniques or standardized protocols for targeted exams where dose is matched to indication/reason for exam; i.e. extremities or head) *Use of iterative reconstruction technique DLP: 673 mGy-cm FINDINGS: LUNG BASES: The visualized lung bases are unremarkable. LIVER, GALLBLADDER, AND BILIARY TREE: The liver is normal in size, shape, and attenuation. There is minimal left hepatic lobe pneumobilia. The gallbladder has been surgically removed. PANCREAS: Unremarkable. SPLEEN: Unremarkable. ADRENAL GLANDS: Unremarkable. KIDNEYS AND URETERS: The kidneys are normal in size, shape, and attenuation. There are bilateral radiopaque calculi the largest in midpole right kidney measures 8 mm. There is bilateral moderate size hydroureteronephrosis likely obstruction in the pelvis. There are surgical scars and krarie seen in the upper pelvis likely cause of hydronephrosis. BLADDER: The bladder is nondistended with mild wall thickening. No radiopaque bladder calculi seen. GASTROINTESTINAL TRACT: Scattered stool and gas is seen in the colon without distention. Mild mural thickening of distal sigmoid/rectum is noted, similar to previous study. Prominent distal small bowel loops with fluid is noted in the upper mid pelvis where there is bilateral pelvic scarring and karrie. The appendix appears normal caliber. Stomach is nondistended. ABDOMINAL WALL: No significant hernia is appreciated. LYMPH NODES: Slightly prominent left inguinal lymph nodes are seen, similar previous study. The largest lymph node measuring 1.5-1.7 cm VASCULAR: Unremarkable. PELVIC VISCERA: There is minimal free fluid in the right adnexa. There are extensive postsurgical changes in the pelvis. The uterus appears surgically absent.. OSSEOUS STRUCTURES: Mild facet joint arthritis L4-L5 disc level. No aggressive lytic or sclerotic process. There are chronic wedge deformities lower dorsal spine. CT/CT abdomen pelvis wo IV con IMPRESSION: 1. Extensive postsurgical changes in bilateral pelvis likely from hysterectomy and lymph node dissection. This results in moderate bilateral hydroureteronephrosis from adhesions. . There is minimal free fluid in the right adnexa. Also visualized is mild prominent fluid-filled distal small bowel loops but no gross distention. 2 Bilateral nephrolithiasis without caliectasis. There is moderate bilateral hydronephrosis. Recommend urology and surgical consult. Right hydronephrosis is new since CT 12/27/2020 3. Cholecystectomy with minimal left hepatic lobe pneumobilia. Fleischner guidelines were followed.
[2023-02-13 11:10] VITALS: BP 141/87; PULSE 73; RESP 18; TEMP 36.8; O2SAT 99; BMI 37.9
--- NOTE | 2023-02-13 11:12 | ED_ITS ---
HPI - General Adult General Chief complaint: Abdominal Pain Stated complaint: Stomach Pain Vomiting Time Seen by Provider: 02/13/23 12:13 Source: patient Mode of arrival: ambulatory Limitations: no limitations History of Present Illness HPI narrative: 52 year old female patient with history of asthma, migraines, kidney stones, and cervical cancer with hysterectomy in 1995 and cholecystectomy 2007, presents today due to one day of significant right sided abdominal pain and vomiting. She states the last time she was able to tolerate solid and liquids was yesterday afternoon on 02/12/23. She states the pain is localized more to her right upper quadrates but that her abdomen is diffusely tender. She elicits multiple bouts of vomiting and states she is still currently very nauseous. She rates her abdominal pain a 10/10 and sharp in quality. She denies chest pain, SOB, fever, chills, body aches and recent illnesses. She took some Zofran at 7 this morning with no relief. Patient states that she has chronic diarrhea for which she follows with a GI specialist. Onset (ago): hour(s) Location: abdomen Radiation: non-radiation Severity: moderate Severity scale (1-10): 4 Quality: stabbing and sharp Pain Consistency: constant Relieving factors: none Exacerbating factors: movement Associated symptoms: nausea/vomiting Treatments prior to arrival: other (zofran 0700 02/13) Related Data Home Medications Medication Instructions Recorded Confirmed cetirizine 10 mg tablet (Zyrtec) 10 mg PO DAILY 07/06/20 01/25/23 clonazepam 1 mg tablet (Klonopin) 1 mg PO BID 07/06/20 01/25/23 montelukast 10 mg tablet 10 mg PO DAILY 07/06/20 01/25/23 (Singulair) naratriptan 2.5 mg tablet See Rx Instructions PO .COMPLEX 07/06/20 01/25/23 travoprost 0.004 % eye drops 1 drp ophthalmic (eye) QPM 07/06/20 01/25/23 (Travatan Z) cyclosporine 0.05 % eye drops in a 1 drp ophthalmic (eye) Q12H 01/06/21 01/25/23 dropperette (Restasis) omalizumab 150 mg subcutaneous 150 mg subcut Q4W 03/08/21 01/25/23 solution (Xolair) dorzolamide 22.3 mg-timolol 6.8 1 drp ophthalmic (eye) BID 05/08/22 01/25/23 mg/mL eye drops bupropion HCl 150 mg 24 hr tablet, 150 mg PO QAM 09/18/22 01/25/23 extended release epinephrine 0.3 mg/0.3 mL IM anaphylaxis 09/18/22 01/23/23 injection, auto-injector ondansetron HCl 4 mg tablet 4 mg PO Q8H PRN nausea/vomiting 09/18/22 01/25/23 Previous Rx's Medication Instructions Recorded fluticasone propionate 50 1 spray intranasal DAILY #48 mL 03/11/21 mcg/actuation nasal spray,suspension duloxetine 60 mg capsule,delayed 60 mg PO DAILY #90 caps 09/21/21 release cholecalciferol (vitamin D3) 50 50 mcg PO DAILY #90 caps 12/12/21 mcg (2,000 unit) capsule methylcellulose (laxative) 500 mg 500 mg PO DAILY #90 tabs 12/12/21 tablet (Citrucel) zolpidem 10 mg tablet (Ambien) 10 mg PO BEDTIME PRN Insomnia 30 12/28/21 days #30 tabs naloxone 4 mg/actuation nasal 4 mg intranasal Q2M PRN opioid 03/15/22 spray (Narcan) overdose #2 ea gabapentin 800 mg tablet 800 mg PO Q8H 30 days #90 tabs 06/26/22 metoprolol tartrate 25 mg tablet 25 mg PO BID 90 days #180 tabs 08/22/22 famotidine 20 mg tablet 20 mg PO BEDTIME 90 days #90 tabs 09/20/22 nrxojl-sqovotmt-btbaute 1 cap PO .qid ac #120 caps 09/20/22 6,000-19,000-30,000 unit capsule,delayed rel (Creon) pantoprazole 40 mg tablet,delayed 40 mg PO DAILY #90 tabs 09/20/22 release valacyclovir 500 mg tablet 500 mg PO BID 7 days #14 tabs 09/25/22 albuterol sulfate 90 mcg/actuation 2 puff inhalation Q4-6H PRN 09/29/22 aerosol inhaler Shortness Of Breath Or Wheezing #8.5 grams atorvastatin 20 mg tablet 20 mg PO DAILY 90 days #90 tabs 10/26/22 magnesium hydroxide 400 mg/5 mL 10 ml PO DAILY PRN constipation 05/10/23 oral suspension (Milk of Magnesia) #355 mL sennosides 8.6 mg tablet (Alem-jeniffer) 17.2 mg PO BEDTIME #180 tabs 12/13/22 tramadol 50 mg tablet 50 mg PO BID #60 tabs 12/28/22 SHOWER CHAIR #1 ea 01/23/23 fluticasone propionate 220 1 puff inhalation BID #12 grams 01/24/23 mcg/actuation HFA aerosol inhaler (Flovent HFA) baclofen 20 mg tablet 20 mg PO BID 30 days #60 tabs 02/12/23 ondansetron 4 mg disintegrating 4 mg PO Q8H 3 days #9 tabs 02/13/23 tablet Allergies Allergy/AdvReac Type Severity Reaction Status Date / Time Penicillins [PENICILLINS] Allergy Severe HIVES Verified 02/12/23 15:44 Iodinated Contrast Media Allergy Intermediate HIVES Verified 02/12/23 15:44 [IV CONTRAST] peanut [PEANUTS] Allergy Intermediate HIVES Verified 02/12/23 15:44 shellfish derived Allergy Intermediate HIVES Verified 02/12/23 15:44 [SHELLFISH DERIVED] cat dander Allergy Mild unknown Verified 02/12/23 15:44 dog dander Allergy Mild unknown Verified 02/12/23 15:44 pollen extracts Allergy Mild runny Verified 02/12/23 15:44 nose, itchy eyes triamcinolone Allergy Unknown Verified 02/12/23 15:44 Review of Systems Constitutional: Constitutional: Reports no additional constitutional complaints, Denies chills, Denies fever(s) and Denies night sweats Eyes: Eyes: Reports no additional eye complaints, Denies blurry vision, Denies change in vision, Denies diplopia, Denies eye discharge, Denies loss of vision and Denies eye pain ENT: Denies dizziness Cardiovascular: Cardiovascular: Reports no additional cardiovascular complaints, Denies chest pain, Denies lightheadedness, Denies Loss of Consciousness and Denies dyspnea Respiratory: Respiratory: Reports no additional respiratory complaints and Denies dyspnea Gastrointestinal: Gastrointestinal: Reports no additional gastrointestinal complaints, Reports abdominal pain, Denies melena, Denies hematochezia, Denies change in bowel habits, Denies change in stool character, Denies diarrhea, Reports nausea and Reports vomiting Genitourinary: Genitourinary: Denies hematuria, Denies urinary frequency, Denies dysuria, Denies urinary incontinence, Denies urinary hesitancy and Denies urinary urgency Musculoskeletal: Musculoskeletal: Reports no additional musculoskeletal complaints, Denies numbness and Denies tingling Neurologic: Denies dizziness, Denies loss of vision, Denies numbness and Denies tingling Psychiatric: Psychiatric: Reports no additional psychiatric complaints Endocrine: Endocrine: Reports no additional endocrine complaints Hematologic/Lymphatic: Hematologic/Lymphatic: Reports no additional hematologic/lymphatic complaints Allergic/Immunologic: Allergic/Immunologic: Reports no additional allergic/immunologic complaints [facility] Past Medical History Attestation statement: The following information was validated with the patient. Source: old records reviewed Medical History Abdominal pain Allergic rhinitis Bipolar depression Encounter for medication monitoring Fibromyalgia Gastritis HLA-B27 spondyloarthropathy Hx of small bowel obstruction Insomnia Lumbar spondylosis Migraine Mild intermittent asthma without complication Obesity (BMI 30-39.9) Osteoarthritis of multiple joints Palpitations Primary osteoarthritis of right hip Pure hypercholesterolemia Sacroiliac joint pain Vitamin D deficiency Surgical History History of carpal tunnel surgery History of esophagogastroduodenoscopy (EGD) History of extraction of renal calculus History of hand surgery History of hysterectomy Hx of cholecystectomy Hx of colonoscopy Hx of cystoscopy Hx of removal of ovary Hx of unilateral oophorectomy S/P cystourethroscopy with dilation of urethral stricture (~07/21/20) Family History Family History Father Kidney problem Diabetes Mother Kidney malignancy Diabetes Brother Asthma Diabetes Social History Social History Housing: House Alcohol intake: never Patient Tobacco Use Status: Never used Tobacco e-Cigarette/Vaping Use: Never Used Second Hand Smoke Exposure: No service: No Current occupational status: disabled Cognitive needs: No Hearing needs: No Vision needs: Yes Physical Exam ED Vital Signs: Vital Signs - 24 hr 02/13/23 11:10 02/13/23 11:40 02/13/23 15:12 Temperature 98.2 F 98.9 F 98.5 F Pulse Rate 73 62 78 Respiratory Rate 18 16 16 Blood Pressure 141/87 H 124/72 114/59 L Pulse Oximetry 99 98 97 Oxygen Delivery Method Room Air Room Air Room Air BMI result Body Mass Index 37.9 Const General: cooperative, no acute distress, alert and awake Nutritional Appearance: well nourished Orientation/consciousness: patient oriented x3 Limitations: no limitations HENMT Head: Yes normal to inspection and Yes atraumatic Ears: hearing grossly normal bilaterally and external ears normal General nose exam: Normal external nose present, no nasal discharge noted and no epistaxis Face and sinus: Yes normal facial exam, No abrasion and No laceration Mouth: Normal oral and palatal mucosa present, no drooling and no muffled voice Eyes General: appearance normal, both eyes and all related structures Periorbital: periorbital findings normal Eyelids: Yes eyelids normal Conjunctivae: conjunctivae normal Pupils: Equal, round and reactive pupils present EOM: EOMs intact bilaterally Neck Neck: Yes normal visual inspection, Yes full ROM and Yes no lymphadenopathy Chest Chest palpation & inspection: normal inspection of the chest Resp Effort & Inspection: normal respiratory effort and able to speak in complete sentences GI Inspection: Yes normal to inspection Palpation (GI): Tenderness to palpation present (GI) in the epigastrum, in the RLQ and in the RUQ; Rovsing's sign negative Neuro General: patient oriented x3 and moves all extremities Cranial nerves: Yes Equal, round and reactive pupils present Cognition (Neuro): normal cognition Motor exam (neuro): 5/5 motor strength present throughout Sensory Exam: Normal double simultaneous stimulation for sensation Coordination: [id number] test normal Extrem General: Yes normal to inspection, Yes full ROM and Yes capillary refill normal Psych Appearance: grossly normal Mental Status: mental status grossly normal Affect: normal affect Attitude: cooperative Thought process: Normal thought process present Thought content: Normal thought content present Insight: Good insight present (Psych) Course Course Course Narrative: This is an RME: Additional HPI, ROS, PE not included below will be deferred to primary provider. Patient is a 52 yo F with a PMH of fibromyalgia presents with right lower quadrant abdominal pain since yesterday. Patient is uncomfortable and in severe pain. Patient reports nausea and vomiting. Patient reports being very allergic to IV contrast. Patient denies fever, chills, headache, vision changes, numbness, tingling. Plan: labs, imaging Medications Administered Discontinued Medications Generic Name Dose Route Start Last Admin Trade Name Juliana PRN Reason Stop Dose Admin Ketorolac Tromethamine 15 mg 02/13/23 12:57 02/13/23 13:34 Ketorolac Tromethamine 15 Mg/Ml Vial IVPUSH 02/13/23 12:58 15 mg ONCE ONE Administration Metoclopramide HCl 10 mg 02/13/23 13:15 02/13/23 13:35 Metoclopramide Hcl 10 Mg/2 Ml Vial IVPUSH 02/13/23 13:16 10 mg ONCE ONE Administration Morphine Sulfate 4 mg 02/13/23 12:57 02/13/23 13:34 Morphine Sulfate 4 Mg/Ml Cartridge IVPUSH 02/13/23 12:58 4 mg ONCE ONE Administration Protocol Ondansetron HCl 4 mg 02/13/23 12:02 02/13/23 12:08 Ondansetron Hcl 4 Mg/2 Ml Vial IVPUSH 02/13/23 12:03 4 mg ONCE ONE Administration Pantoprazole Sodium 40 mg 02/13/23 12:58 02/13/23 13:38 Pantoprazole Sodium 40 Mg/10 Ml Vial IVPUSH 02/13/23 12:59 40 mg ONCE ONE Administration Medical Decision Making Medical Decision Making [facility] Narrative: Patient is a 52 year old assigned female at with a history of asthma, migraines, kidney stones, and cervical cancer with hysterectomy in 1995 and cholecystectomy 2007 presenting to the emergency department today with right sided abdominal pain, nausea, and vomiting. Patient's physical exam was as noted in the physical exam portion of this chart. Patient's blood work showed an elevated WBC count of 15.2, likely secondary to nausea and vomiting. The rest of the patient's labs are grossly normal. Patient's urine showed no acute process. Patient's abdomen/pelvis CT showed moderate bilateral hydroureteronephrosis secondary to adhesions. Radiologist recommends surgery and urology consults. I spoke with the urologist who recommends the patient follow up on an outpatient basis. I spoke with the surgeon who evaluated the patient and stated she was not a surgical case at this time. I explained my physical exam findings as well as all test results to the patient. I answered all questions asked by the patient. Patient received IV protonix, zofran, morphine, reglan, and toradol which she stated helped her symptoms significantly. Patient was able to tolerate PO intake while in the department. Patient stated that she would rather follow up with her established urologist and surgeon I stressed the importance of the patient taking her medication as prescribed. I stressed the importance of the patient following up with her primary care provider, general surgeon, and urologist. I stressed the importance of the patient returning to the emergency department immediately if her symptoms were to worsen or if she were to develop any dizziness, shortness of breath, difficulty breathing, chest pain, blurry vision, loss of vision, nausea, vomiting, abdominal pain, fever, chills, back pain, or any other complaints. Patient verbalized agreement and understanding with this treatment plan and discharge. Differential Diagnosis Differential Diagnoses: The differential diagnosis associated with the presentation includes Bowel obstruction Gastroenteritis Renal calculi Nausea, vomiting Abdominal pain Abdominal adhesions Admission/Observation Consideration of admission/observation: Escalation of care including admission/observation considered Patient would have been admitted to the hospital had her work up had any findings where hospital admission was appropriate and her clinical presentation warranted hospital admission. Consult Healthcare Provider Management of the patient was discussed with: Conservation Officer (spoke with general surgery and urology as noted in the MDM portion of this chart. ) Lab Data [facility] Lab Attestation statement: I reviewed the patient's lab results. My interpretation of these results are in the MDM portion of this chart. 02/13/23 11:27 02/13/23 11:27 Labs: Lab Results 02/13/23 02/13/23 02/13/23 Range/Units 11:27 11:27 11:27 WBC 15.2 H (4.8-10.8) X10*3/uL RBC 4.64 (4.20-5.50) X10*6/uL Hgb 12.7 (12.0-16.0) g/dl Hct 40.3 (37.0-47.0) % MCV 86.9 (80.0-98.0) fL MCH 27.4 (27.0-33.0) pg MCHC 31.5 (31.0-35.0) g/dl RDW 14.4 (11.0-16.0) % Plt Count 363 (160-400) X10*3/uL MPV 10.1 (9.4-12.3) fL Immature Gran % (Auto) 0.4 (0.0-0.4) % Neut % (Auto) 91.9 H (45-73) % Lymph % (Auto) 5.6 L (20-40) % Mellette % (Auto) 1.9 L (2-11) % Eos % (Auto) 0.0 (0-4) % Baso % (Auto) 0.2 (0-2) % Lymph # (Auto) 0.9 L (1.2-4.9) X10*3/uL Mellette # (Auto) 0.3 (0.1-1.2) X10*3/uL Eos # (Auto) 0.0 (0.0-0.4) X10*3/uL Baso # (Auto) 0.0 (0.0-0.2) X10*3/uL Abs Immat Gran (auto) 0.06 H (0.00-0.03) X10*3/uL Absolute Neuts (auto) 13.9 H (2.0-8.3) x10*3/uL Absolute Nucleated RBC 0.000 (0.0-0.012) X10*3/uL Nucleated RBC % (auto) 0.0 (0.0-0.2) /100WBC Smear Tech's Comments VERIFIED Sodium 141 (135-145) mmol/L Potassium 3.7 (3.3-5.1) mmol/L Chloride 108 (96-108) mmol/L Carbon Dioxide 21 L (22-29) mmol/L Anion Gap 16 (12-20) BUN 8 L (9-16) mg/dL Creatinine 0.71 (0.5-1.4) mg/dL Estim Creat Clear Calc 92.5 Estimated GFR > 60 Random Glucose 126 H (60-115) mg/dL Calcium 10.4 H (8.4-10.2) mg/dL Magnesium 2.0 (1.6-2.6) mg/dL Total Bilirubin 0.7 (0.0-1.0) mg/dL AST 13 (5-31) U/L ALT 15 (0-31) U/L Alkaline Phosphatase 100 (39-117) U/L Total Protein 8.0 (6.5-8.0) g/dL Albumin 4.4 (3.5-5.0) g/dL Lipase 16 (8-78) U/L Beta HCG, Quant mIU/mL COVID-19 (HEATHER) Negative (Negative) COVID-19 Clin Com See Note 02/13/23 Range/Units 11:27 WBC (4.8-10.8) X10*3/uL RBC (4.20-5.50) X10*6/uL Hgb (12.0-16.0) g/dl Hct (37.0-47.0) % MCV (80.0-98.0) fL MCH (27.0-33.0) pg MCHC (31.0-35.0) g/dl RDW (11.0-16.0) % Plt Count (160-400) X10*3/uL MPV (9.4-12.3) fL Immature Gran % (Auto) (0.0-0.4) % Neut % (Auto) (45-73) % Lymph % (Auto) (20-40) % Mellette % (Auto) (2-11) % Eos % (Auto) (0-4) % Baso % (Auto) (0-2) % Lymph # (Auto) (1.2-4.9) X10*3/uL Mellette # (Auto) (0.1-1.2) X10*3/uL Eos # (Auto) (0.0-0.4) X10*3/uL Baso # (Auto) (0.0-0.2) X10*3/uL Abs Immat Gran (auto) (0.00-0.03) X10*3/uL Absolute Neuts (auto) (2.0-8.3) x10*3/uL Absolute Nucleated RBC (0.0-0.012) X10*3/uL Nucleated RBC % (auto) (0.0-0.2) /100WBC Smear Tech's Comments Sodium (135-145) mmol/L Potassium (3.3-5.1) mmol/L Chloride (96-108) mmol/L Carbon Dioxide (22-29) mmol/L Anion Gap (12-20) BUN (9-16) mg/dL Creatinine (0.5-1.4) mg/dL Estim Creat Clear Calc Estimated GFR Random Glucose (60-115) mg/dL Calcium (8.4-10.2) mg/dL Magnesium (1.6-2.6) mg/dL Total Bilirubin (0.0-1.0) mg/dL AST (5-31) U/L ALT (0-31) U/L Alkaline Phosphatase (39-117) U/L Total Protein (6.5-8.0) g/dL Albumin (3.5-5.0) g/dL Lipase (8-78) U/L Beta HCG, Quant < 2 mIU/mL COVID-19 (HEATHER) (Negative) COVID-19 Clin Com Independent Interpretation I performed an independent interpretation of an: CT Scan Interpretation: My interpretation is in agreement with the radiologist's impression of this imaging study. ----- EXAMINATION: CT ABDOMEN AND PELVIS WITHOUT CONTRAST? CLINICAL INFORMATION: Right lower quadrant pain? COMPARISON: CT abdomen and pelvis 12/23/2020. TECHNIQUE: Multidetector volumetric imaging was performed from the superior aspect of the liver through the pubic symphysis. Sagittal and coronal reformatted images were obtained on the technologist's workstation.? This CT examination was performed using dose optimization techniques as appropriate, variously including the following: *Automated exposure control *Adjustment of mA and/or kV according to patient size (this includes techniques or standardized protocols for targeted exams where dose is matched to indication/reason for exam; i.e. extremities or head) *Use of iterative reconstruction technique DLP: 673 mGy-cm FINDINGS: LUNG BASES: The visualized lung bases are unremarkable.? LIVER, GALLBLADDER, AND BILIARY TREE: The liver is normal in size, shape, and attenuation. There is minimal left hepatic lobe pneumobilia. The gallbladder has been surgically removed. PANCREAS: Unremarkable.? SPLEEN: Unremarkable.? ADRENAL GLANDS: Unremarkable.? KIDNEYS AND URETERS: The kidneys are normal in size, shape, and attenuation. There are bilateral radiopaque calculi the largest in midpole right kidney measures 8 mm. There is bilateral moderate size hydroureteronephrosis likely obstruction in the pelvis. There are surgical scars and karrie seen in the upper pelvis likely cause of hydronephrosis. BLADDER: The bladder is nondistended with mild wall thickening. No radiopaque bladder calculi seen. GASTROINTESTINAL TRACT: Scattered stool and gas is seen in the colon without distention. Mild mural thickening of distal sigmoid/rectum is noted, similar to previous study. Prominent distal small bowel loops with fluid is noted in the upper mid pelvis where there is bilateral pelvic scarring and karrie. The appendix appears normal caliber. Stomach is nondistended. ABDOMINAL WALL: No significant hernia is appreciated.? LYMPH NODES: Slightly prominent left inguinal lymph nodes are seen, similar previous study. The largest lymph node measuring 1.5-1.7 cm VASCULAR: Unremarkable. PELVIC VISCERA: There is minimal free fluid in the right adnexa. There are extensive postsurgical changes in the pelvis. The uterus appears surgically absent..? OSSEOUS STRUCTURES: Mild facet joint arthritis L4-L5 disc level. No aggressive lytic or sclerotic process. There are chronic wedge deformities lower dorsal spine.? CT/CT abdomen pelvis wo IV con IMPRESSION: 1.? Extensive postsurgical changes in bilateral pelvis likely from hysterectomy and lymph node dissection. This results in moderate bilateral hydroureteronephrosis from adhesions. . There is minimal free fluid in the right adnexa. Also visualized is mild prominent fluid-filled distal small bowel loops but no gross distention. ? 2 Bilateral nephrolithiasis without caliectasis. There is moderate bilateral hydronephrosis. Recommend urology and surgical consult. Right hydronephrosis is new since CT 12/27/2020 ? 3. Cholecystectomy with minimal left hepatic lobe pneumobilia. ? Fleischner guidelines were followed. Dictated By: Omar Padilla MD Signed By: Electronically signed by Omar Padilla MD 02/13/23 1401 Radiology Impression Discussion of test interpretation with radiology: I have reviewed the radiologist's reading. External Record Review External record reviewed: Other (previous ED visits) Prescription Management I considered prescription management with: Other (patient prescribed anti- emetic) Critical Care Time Critical Care Time Critical Care Time: Yes Total Critical Care Time: 30 Attestation: I spent 30 minutes of Critical Care Time with this patient. This does not include time spent on separately reported billable procedures. Discharge Plan Discharge Clinical Impression: Nausea & vomiting, Abdominal adhesions Patient Disposition: Home, Self-Care Instructions: Acute Nausea and Vomiting (ED) Additional Instructions: Your abdomen/pelvis CT scan showed evidence of bilateral hydroureteronephrosis from adhesions. You should follow up with your urologist about this finding. Follow up with your primary care provider. Return to the emergency department immediately if your symptoms worsen or if you develop any dizziness, shortness of breath, difficulty breathing, chest pain, blurry vision, loss of vision, nausea, vomiting, abdominal pain, fever, chills, back pain, or any other complaints. Prescriptions: New ondansetron 4 mg tablet,disintegrating 4 mg PO Q8H 3 Days Qty: 9 0RF No Action fluticasone propionate 50 mcg/actuation spray,suspension 1 spray intranasal DAILY Qty: 48 1RF duloxetine 60 mg capsule,delayed release(DR/EC) 60 mg PO DAILY Qty: 90 1RF zolpidem [Ambien] 10 mg tablet 10 mg PO BEDTIME PRN (Reason: Insomnia) 30 Days Qty: 30 0RF gabapentin 800 mg tablet 800 mg PO Q8H 30 Days Qty: 90 8RF albuterol sulfate 90 mcg/actuation HFA aerosol inhaler 2 puff inhalation Q4-6H PRN (Reason: Shortness Of Breath Or Wheezing) Qty: 8.5 3RF atorvastatin 20 mg tablet 20 mg PO DAILY 90 Days Qty: 90 1RF tramadol 50 mg tablet 50 mg PO BID Qty: 60 2RF Flovent HFA 220 mcg/actuation HFA aerosol inhaler 1 puff inhalation BID Qty: 12 3RF (DME) SHOWER CHAIR See Rx Instructions .Route .MEDSUPPLY Qty: 1 0RF Rx Instructions: As directed valacyclovir 500 mg tablet 500 mg PO BID 7 Days Qty: 14 0RF travoprost [Travatan Z] 0.004 % drops 1 drp ophthalmic (eye) QPM naratriptan 2.5 mg tablet See Rx Instructions PO .COMPLEX Rx Instructions: take 1 tab at onset of headache; if no relief may repeat 1 tab after at least 4 hrs; max = 2 tabs/24 hrs PO clonazepam [Klonopin] 1 mg tablet 1 mg PO BID montelukast [Singulair] 10 mg tablet 10 mg PO DAILY cetirizine [Zyrtec] 10 mg tablet 10 mg PO DAILY Restasis 0.05 % dropperette 1 drp ophthalmic (eye) Q12H Xolair 150 mg recon soln 150 mg subcut Q4W Citrucel 500 mg tablet 500 mg PO DAILY Qty: 90 2RF Rx Instructions: take it with full glass of water cholecalciferol (vitamin D3) 50 mcg (2,000 unit) capsule 50 mcg PO DAILY Qty: 90 3RF dorzolamide-timolol 22.3-6.8 mg/mL drops 1 drp ophthalmic (eye) BID metoprolol tartrate 25 mg tablet 25 mg PO BID 90 Days Qty: 180 3RF pantoprazole 40 mg tablet,delayed release (DR/EC) 40 mg PO DAILY Qty: 90 2RF Rx Instructions: take one tablet half an hour before breakfast Creon 6,000-19,000 -30,000 unit capsule,delayed release(DR/EC) 1 cap PO .qid ac Qty: 120 3RF Rx Instructions: do not exceed 10,000 unit/kg lipase per 24 hrs famotidine 20 mg tablet 20 mg PO BEDTIME 90 Days Qty: 90 1RF bupropion HCl 150 mg tablet extended release 24 hr 150 mg PO QAM epinephrine 0.3 mg/0.3 mL auto-injector IM ondansetron HCl 4 mg tablet 4 mg PO Q8H PRN (Reason: nausea/vomiting) naloxone [Narcan] 4 mg/actuation spray,non-aerosol 4 mg intranasal Q2M PRN (Reason: opioid overdose) Qty: 2 0RF Rx Instructions: spray 1 dose into ONE nostril; alternate nostrils w each dose until help arrives sennosides [Alem-jeniffer] 8.6 mg tablet 17.2 mg PO BEDTIME Qty: 180 3RF magnesium hydroxide [Milk of Magnesia] 400 mg/5 mL suspension 10 ml PO DAILY PRN (Reason: constipation) Qty: 355 2RF baclofen 20 mg tablet 20 mg PO BID 30 Days Qty: 60 2RF Rx Instructions: take 1/2 of the pill if there are side effects with full dose. Referrals: Christ Goodwin MD [Primary Care Provider] - Interventions: ED Discharge Assessment Last Done: 02/13/23 15:15 Discharge Date/Time: 02/13/23 15:16 Print Language: Bulgarian
[2023-02-13 11:38] LABS: Basophils Percent Auto 0.2 % (0-2); Hematocrit 40.3 % (37.0-47.0); Hemoglobin 12.7 g/dl (12.0-16.0); Imm Gran Abs Auto 0.06 X10*3/uL (0.00-0.03); Imm Gran Pct Auto 0.4 % (0.0-0.4); Lymphocytes Absolute Auto 0.9 X10*3/uL (1.2-4.9); Lymphocytes Percent Auto 5.6 % (20-40); MANUAL DIFF FLAG SCAN; Mean Corpuscular HGB Conc 31.5 g/dl (31.0-35.0); Mean Corpuscular Hemoglobin 27.4 pg (27.0-33.0); Mean Corpuscular Volume 86.9 fL (80.0-98.0); Mean Platelet Volume 10.1 fL (9.4-12.3); Monocytes Absolute Auto 0.3 X10*3/uL (0.1-1.2); Monocytes Percent Auto 1.9 % (2-11); Neutrophils Absolute Auto 13.9 x10*3/uL (2.0-8.3); Neutrophils Percent Auto 91.9 % (45-73); Platelet Count 363 X10*3/uL (160-400); Red Blood Count 4.64 X10*6/uL (4.20-5.50); Red Cell Distribution Width 14.4 % (11.0-16.0); SCAN SMEAR FLAG 1; White Blood Count 15.2 X10*3/uL (4.8-10.8)
[2023-02-13 11:40] VITALS: BP 124/72; PULSE 62; RESP 16; TEMP 37.2; O2SAT 98
[2023-02-13 11:47] LABS: Alanine Aminotransferase 15 U/L (0-31); Albumin Level 4.4 g/dL (3.5-5.0); Alkaline Phosphatase 100 U/L (39-117); Anion Gap 16 (12-20); Aspartate Amino Transferase 13 U/L (5-31); Bilirubin Total 0.7 mg/dL (0.0-1.0); Blood Urea Nitrogen 8 mg/dL (9-16); Calcium 10.4 mg/dL (8.4-10.2); Carbon Dioxide 21 mmol/L (22-29); Chloride 108 mmol/L (96-108); Creatinine Clr Calc Pharmacy 92.5; Estimated Glomerular Filt Rate > 60; Glucose Random 126 mg/dL (60-115); Lipase 16 U/L (8-78); Potassium 3.7 mmol/L (3.3-5.1); Sodium 141 mmol/L (135-145)
[2023-02-13 11:58] LABS: SLIDE REVIEW VERIFIED
[2023-02-13 12:03] LABS: HCG Quantitative < 2 mIU/mL
[2023-02-13] MEDS: ondansetron HCL 4 MG/2 ML VIAL IVPUSH (12:08)
[2023-02-13 12:22] LABS: COVID-19 Test Negative (Negative); IDNOW Serial# 6674DD1D
--- NOTE | 2023-02-13 12:25 | PC.NURSE ---
pt axox3, skin WPD, respirations even and unlabored. c/o diffused abd pain x 1 day, reports n/v/d, denies presence of blood. +bs x 4. last BM 02/12/23. IV established, pt medicated per chart. pt denies questions at this time, awaiting primary eval.
[2023-02-13] MEDS: Ketorolac Tromethamine 15 MG/ML VIAL IVPUSH (13:34)
[2023-02-13] MEDS: Morphine Sulfate 4 MG/ML CARTRIDGE IVPUSH (13:34)
[2023-02-13] MEDS: Metoclopramide HCl 10 MG/2 ML VIAL IVPUSH (13:35)
[2023-02-13] MEDS: Pantoprazole Sodium 40 MG/10 ML VIAL IVPUSH (13:38)
--- NOTE | 2023-02-13 14:36 | P.CONGS_ITS ---
History of Present Illness Consult details Consult date: 02/13/23 Narrative: The patient is a 52-year-old woman who is status post hysterectomy for cervical cancer who is seen at the request of the emergency department because of vomiting and leukocytosis. Patient is seen in offered interpretive services but declined. Patient notes that she started to develop abdominal distress and reports a history of irritable bowel syndrome being managed at the GI clinic here; yesterday, she reported that she thought she may be constipated, even though she was passing gas so she drank milk of magnesia trying to get her bowels to work. She notes she had a bowel movement yesterday and was passing gas and has continued to pass gas. She has a history of constipation/IBS & watery diarrhea since her hysterectomy and was hopeful the milk of magnesia would help. She denies any abdominal pain at the time of interview. As noted, she states she is passing gas. Review of Systems Review of Systems: Yes all other systems are reviewed and are negative Constitutional: Constitutional: Reports as per [facility] Past Medical History Medical History Abdominal pain Allergic rhinitis Bipolar depression Encounter for medication monitoring Fibromyalgia Gastritis HLA-B27 spondyloarthropathy Hx of small bowel obstruction Insomnia Lumbar spondylosis Migraine Mild intermittent asthma without complication Obesity (BMI 30-39.9) Osteoarthritis of multiple joints Palpitations Primary osteoarthritis of right hip Pure hypercholesterolemia Sacroiliac joint pain Vitamin D deficiency Family History Family History Father Kidney problem Diabetes Mother Kidney malignancy Diabetes Brother Asthma Diabetes Surgical History Surgical History History of carpal tunnel surgery History of esophagogastroduodenoscopy (EGD) History of extraction of renal calculus History of hand surgery History of hysterectomy Hx of cholecystectomy Hx of colonoscopy Hx of cystoscopy Hx of removal of ovary Hx of unilateral oophorectomy S/P cystourethroscopy with dilation of urethral stricture (~07/21/20) Social History Social History Housing: House Alcohol intake: never Patient Tobacco Use Status: Never used Tobacco Smoked in Last 30 Days: No e-Cigarette/Vaping Use: Never Used Second Hand Smoke Exposure: No Use of substances other than those prescribed or required for medical reasons: No Advance Directives: No service: No Current occupational status: disabled Cognitive needs: No Hearing needs: No Vision needs: Yes Meds Allergies Allergy/AdvReac Type Severity Reaction Status Date / Time Penicillins [PENICILLINS] Allergy Severe HIVES Verified 02/12/23 15:44 Iodinated Contrast Media Allergy Intermediate HIVES Verified 02/12/23 15:44 [IV CONTRAST] peanut [PEANUTS] Allergy Intermediate HIVES Verified 02/12/23 15:44 shellfish derived Allergy Intermediate HIVES Verified 02/12/23 15:44 [SHELLFISH DERIVED] cat dander Allergy Mild unknown Verified 02/12/23 15:44 dog dander Allergy Mild unknown Verified 02/12/23 15:44 pollen extracts Allergy Mild runny Verified 02/12/23 15:44 nose, itchy eyes triamcinolone Allergy Unknown Verified 02/12/23 15:44 Home Medications Medication Instructions Recorded Confirmed Last Taken Type cetirizine 10 mg tablet (Zyrtec) 10 mg PO DAILY 07/06/20 01/25/23 Unknown History clonazepam 1 mg tablet (Klonopin) 1 mg PO BID 07/06/20 01/25/23 02/10/22 History montelukast 10 mg tablet 10 mg PO DAILY 07/06/20 01/25/23 Unknown History (Singulair) naratriptan 2.5 mg tablet See Rx Instructions PO .COMPLEX 07/06/20 01/25/23 Unknown History travoprost 0.004 % eye drops 1 drp ophthalmic (eye) QPM 07/06/20 01/25/23 Unknown History (Travatan Z) cyclosporine 0.05 % eye drops in a 1 drp ophthalmic (eye) Q12H 01/06/21 01/25/23 Unknown History dropperette (Restasis) omalizumab 150 mg subcutaneous 150 mg subcut Q4W 03/08/21 01/25/23 Unknown History solution (Xolair) dorzolamide 22.3 mg-timolol 6.8 1 drp ophthalmic (eye) BID 05/08/22 01/25/23 Unknown History mg/mL eye drops bupropion HCl 150 mg 24 hr tablet, 150 mg PO QAM 09/18/22 01/25/23 Unknown History extended release epinephrine 0.3 mg/0.3 mL IM anaphylaxis 09/18/22 01/23/23 Unknown History injection, auto-injector ondansetron HCl 4 mg tablet 4 mg PO Q8H PRN nausea/vomiting 09/18/22 01/25/23 Unknown History Physical Exam Vital Signs: Vital Signs: Last Vital Signs Temp 98.9 F 02/13/23 11:40 Pulse 62 02/13/23 11:40 Resp 16 02/13/23 11:40 BP 124/72 02/13/23 11:40 Pulse Ox 98 02/13/23 11:40 O2 Del Method Room Air 02/13/23 11:40 BMI result Body Mass Index 37.9 The patient is non-toxic & in good spirits NC/AT, PERRLA, EOMI Mood, affect & judgment all appear appropriate Sclera anicteric conjunctiva pink and moist Oropharynx is clear with no aphthous ulcers, Mallampati class 4, mucous membranes moist Neck is supple with no masses, adenopathy or bruits Thyroid is nontender and free of dominant masses Heart is regular, normal S1-S2 no rubs or murmurs Lungs are clear and equal anteriorly with no audible wheezing, rubs or dullness to percussion Abdomen is soft, obese & nontender with no demonstrable hernias. No HSM, reboun d, rigidity, guarding, masses or bruits are present. Rectal exam is deferred Skin has good turgor and is free of rashes Extremities free of cyanosis clubbing edema Results Labs 02/13/23 11:27 02/13/23 11:27 Labs: Abnormal lab results 02/13/23 02/13/23 Range/Units 11:27 11:27 WBC 15.2 H (4.8-10.8) X10*3/uL Neut % (Auto) 91.9 H (45-73) % Lymph % (Auto) 5.6 L (20-40) % [place] % (Auto) 1.9 L (2-11) % Lymph # (Auto) 0.9 L (1.2-4.9) X10*3/uL Abs Immat Gran (auto) 0.06 H (0.00-0.03) X10*3/uL Absolute Neuts (auto) 13.9 H (2.0-8.3) x10*3/uL Carbon Dioxide 21 L (22-29) mmol/L BUN 8 L (9-16) mg/dL Random Glucose 126 H (60-115) mg/dL Calcium 10.4 H (8.4-10.2) mg/dL Short CBC 02/13/23 Range/Units 11:27 WBC 15.2 H (4.8-10.8) X10*3/uL Hgb 12.7 (12.0-16.0) g/dl Hct 40.3 (37.0-47.0) % Plt Count 363 (160-400) X10*3/uL BMP 02/13/23 11:27 Sodium 141 Potassium 3.7 Chloride 108 Carbon Dioxide 21 L BUN 8 L Creatinine 0.71 Calcium 10.4 H Liver Function 02/13/23 Range/Units 11:27 Total Bilirubin 0.7 (0.0-1.0) mg/dL AST 13 (5-31) U/L ALT 15 (0-31) U/L Alkaline Phosphatase 100 (39-117) U/L Albumin 4.4 (3.5-5.0) g/dL All other labs normal. Imaging Abdomen CT scan report/results: report reviewed and image reviewed CT scan - pelvis: report reviewed and image reviewed Additional studies: U/A pending Assessment and Plan (1) Vomiting: Status: Acute (2) Abnormal CT scan: Status: Acute (3) Leukocytosis: Status: Acute Plan I do not appreciate any acute surgical pathology based on the clinical findings reported to me. Patient states she had a bowel movement yesterday and is passing gas today, which is inconsistent with a bowel obstruction. Her abdomi nal exam has no peritoneal sign and no tympany. She notes that the vomiting occurred after she self-medicated with milk of magnesia given her chronic abdominal complaints and diarrhea that is being followed by Gastroenterology. Would assess her UA. In my interpretation, the CT appears to be an ileus since there is gas and stool throughout the colon, the stomach is nondilated. The patient's history including passing flatus and recent bowel movement, her abdominal exam and CT are not consistent with acute surgical pathology. Bilateral hydro is deferred to urology. Time Spent With Patient Time: Total time managing care of this patient today ____ minutes. Procedures Date of Service Date of Service: 02/13/23
[2023-02-13 15:12] VITALS: BP 114/59; PULSE 78; RESP 16; TEMP 36.9; O2SAT 97
== END 2023-02-13 15:16 | disposition home or self-care (01) ==
PROVIDERS: Physician Assistant; Emergency Provider Emergency Medicine Emergency Medical Services; PCP Internal Medicine
DX: K66.0 Peritoneal adhesions (postprocedural) (postinfection) (principal); N13.2 Hydronephrosis with renal and ureteral calculous obstruction; R11.2 Nausea with vomiting, unspecified; D72.829 Elevated white blood cell count, unspecified; E78.00 Pure hypercholesterolemia, unspecified; Z20.822 Contact with and (suspected) exposure to COVID-19; Z90.710 Acquired absence of both cervix and uterus; Z90.49 Acquired absence of other specified parts of digestive tract; Z79.899 Other long term (current) drug therapy
CPT/HCPCS: 36415; 74176; 80053; 83690; 83735; 84702; 85025; 87635; 96374; 96375; 99284; J1885; J2270; J2405; J2765

== ENCOUNTER → 2023-02-13 11:33 | Outpatient (BNV) | payer OTHER, SELFPAY | PROVIDERS: Emergency Provider Emergency Medicine Emergency Medical Services; PCP Internal Medicine; Visit Provider Surgery | DX: R11.10 Vomiting, unspecified (principal); R93.89 Abnormal findings on diagnostic imaging of other specified body structures; D72.829 Elevated white blood cell count, unspecified | CPT/HCPCS: 99284 ==

== ENCOUNTER 2023-03-01 13:43 | Outpatient (AMB) | payer OTHER, SELFPAY ==
[2023-03-01 13:51] VITALS: BP 140/78; PULSE 77; BMI 34.1
--- NOTE | 2023-03-01 13:51 | MHC.OFFVIS ---
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 Accompanied by: Self / Same As Patient Allergies Penicillins [PENICILLINS] Allergy (Severe, Verified 03/01/23 13:53) HIVES Iodinated Contrast Media [IV CONTRAST] Allergy (Intermediate, Verified 03/01/23 13:53) HIVES peanut [PEANUTS] Allergy (Intermediate, Verified 03/01/23 13:53) HIVES shellfish derived [SHELLFISH DERIVED] Allergy (Intermediate, Verified 03/01/23 13:53) HIVES cat dander Allergy (Mild, Verified 03/01/23 13:53) unknown dog dander Allergy (Mild, Verified 03/01/23 13:53) unknown pollen extracts Allergy (Mild, Verified 03/01/23 13:53) runny nose, itchy eyes triamcinolone Allergy (Verified 03/01/23 13:53) Unknown Medication List - Last Reconciled 03/01/23 by Avery Knutson MD albuterol sulfate 90 mcg/actuation 2 puffs inhalation Q4-6H PRN atorvastatin 20 mg PO DAILY 90 days baclofen 20 mg PO BID 30 days baclofen 10 mg PO BID PRN benzonatate 100 - 200 mg PO bupropion HCl 150 mg PO QAM cetirizine (Zyrtec) 10 mg PO DAILY cholecalciferol (vitamin D3) 50 mcg PO DAILY clonazepam (Klonopin) 1 mg PO BID cyclosporine 0.05% (Restasis) 1 drp ophthalmic (eye) Q12H dorzolamide-timolol 22.3-6.8 mg/mL 1 drp ophthalmic (eye) BID duloxetine 60 mg PO DAILY epinephrine IM famotidine 20 mg PO BEDTIME 90 days fluticasone propionate 50 mcg/actuation 1 spray intranasal DAILY fluticasone propionate 220 mcg/actuation (Flovent HFA) 1 puff inhalation BID gabapentin 800 mg PO Q8H 30 days [id number]-cxhanhp 6,000-19,000 -30,000 unit (Creon) 1 cap PO .qid ac magnesium hydroxide (Milk of Magnesia) 10 mL PO DAILY PRN methylcellulose (laxative) (Citrucel) 500 mg PO DAILY montelukast (Singulair) 10 mg PO DAILY naloxone 4 mg/actuation (Narcan) 4 mg intranasal Q2M PRN naratriptan take 1 tab at onset of headache; if no relief may repeat 1 tab after at least 4 hrs; max = 2 tabs/24 hrs PO omalizumab (Xolair) 150 mg subcut Q4W ondansetron 4 mg PO Q8H 3 days ondansetron HCl 4 mg PO Q8H PRN pantoprazole 40 mg PO DAILY sennosides (Alem-jeniffer) 17.2 mg (2 x 8.6 mg) PO BEDTIME [SHOWER CHAIR As directed] tramadol 50 mg PO BID travoprost 0.004% (Travatan Z) 1 drp ophthalmic (eye) QPM valacyclovir 500 mg PO BID 7 days zolpidem (Ambien) 10 mg PO BEDTIME PRN 30 days HPI HPI Comments History of Present Illness Details Yanci returns for follow-up. In the past, she was seen regarding palpitations. She still gets sensations as the heart is going to jump out of the chest. Some neck pulse a shins. Holter had shown PVCs. We had given her some beta-blockers but she states she read the side effects and decided not to take it. Otherwise, no clear anginal-type symptoms or anything else cardiac sounding. She does not have any coronary disease or myocardial infarction or cardiomyopathy. [facility] Medical History Abdominal pain Allergic rhinitis Bipolar depression Encounter for medication monitoring Fibromyalgia Gastritis HLA-B27 spondyloarthropathy Hx of small bowel obstruction Insomnia Lumbar spondylosis Migraine Mild intermittent asthma without complication Obesity (BMI 30-39.9) Osteoarthritis of multiple joints Palpitations Primary osteoarthritis of right hip Pure hypercholesterolemia Sacroiliac joint pain Vitamin D deficiency Surgical History History of carpal tunnel surgery History of esophagogastroduodenoscopy (EGD) History of extraction of renal calculus History of hand surgery History of hysterectomy Hx of cholecystectomy Hx of colonoscopy Hx of cystoscopy Hx of removal of ovary Hx of unilateral oophorectomy S/P cystourethroscopy with dilation of urethral stricture (~07/21/20) Family History Father Kidney problem Diabetes Mother Kidney malignancy Diabetes Brother Asthma Diabetes Social History Housing: House Alcohol intake: never Patient Tobacco Use Status: Never used Tobacco e-Cigarette/Vaping Use: Never Used Second Hand Smoke Exposure: No service: No Current occupational status: disabled Cognitive needs: No Hearing needs: No Vision needs: Yes Review of Systems Const Denies chills, Denies daytime sleepiness, Denies fatigue, Denies fever(s), Denies frequent falls, Denies night sweats, Denies snoring, Denies weakness, Denies weight gain and Denies weight loss Eyes Denies loss of vision ENT Denies dizziness and Denies hearing loss Card Denies chest pain, Denies chest pain with activity, Denies syncope, Denies rapid heart rate, Denies edema, Denies claudication, Denies leg edema, Denies lightheadedness, Denies palpitations, Denies dyspnea, Denies dyspnea on exertion and Denies orthopnea Resp Denies cough, Denies excessive phlegm production, Denies dyspnea, Denies dyspnea on exertion, Denies snoring and Denies wheezing GI Denies abdominal pain, Denies hematochezia, Denies change in bowel habits, Denies change in stool character, Denies heartburn, Denies nausea and Denies vomiting Denies hematuria, Denies urinary frequency and Denies dysuria Musc Denies arthralgias, Denies muscle weakness, Denies numbness and Denies other (Frequent falls) Skin/Breast Denies nail changes and Denies rash Neuro Denies Abnormal speech present, Denies dizziness, Denies syncope, Denies frequent falls, Denies loss of vision, Denies memory loss, Denies numbness and Denies weakness Psych Denies depression and Denies memory loss Endo Denies fatigue and Denies palpitations Aller/Immun Denies wheezing Physical Exam Vital Signs: Last Vital Signs Pulse 77 03/01/23 13:51 BP 140/78 H 03/01/23 13:51 BMI result Body Mass Index 34.1 Const General: comfortable and no acute distress Orientation/consciousness: patient oriented x3 HEENT Other: Unremarkable Head: Yes normal to inspection Neck Neck: Yes normal visual inspection Chest Chest palpation & inspection: normal inspection of the chest Resp Auscultation: clear to auscultation bilaterally Cardio Palpation: normal PMI Heart sounds: S1 normal heart sound present, S2 normal heart sound present, no gallops, no murmurs and no rubs GI Palpation (GI): Soft to palpation Back/Spine/Pelvis Other: unremarkable Skin General skin exam: no rashes or lesions noted Neuro General: patient oriented x3 Speech: No Abnormal speech present Extrem General: Yes normal to inspection Psych Mental Status: mental status grossly normal Assessment & Plan Assessment & Plan (1) PVC (premature ventricular contraction): Code(s): I49.3 - Ventricular premature depolarization Plan Cardiac studies reviewed. Echocardiogram with LVEF of 60%. No wall motion abnormalities and otherwise unremarkable. In the Holter, underlying rhythm is sinus. There were PVCs with a burden of 1.3%. The palpitations she describes are likely from the PVCs. She does not want to take any beta-blockers due to fear of side effects. In this instance, mainly reassurance. Explained to her that they are not dangerous and she also has a fairly low burden. She can lose some weight which should help her from arrhythmia standpoint. She understands that. Otherwise, we discussed about possible KELTON but she states she barely sleeps on actually has insomnia and she does not snore. If there is a concern, can get a sleep study through her own PCP. Otherwise, she will call us with ongoing concerns. Coding Level of Care Code Est Pt Level 3 (83919) Diagnoses PVC (premature ventricular contraction) I49.3
== END 2023-03-01 15:10 | disposition home or self-care (01) ==
PROVIDERS: Visit Provider Internal Medicine
DX: I49.3 Ventricular premature depolarization (principal)
CPT/HCPCS: 99213

== ENCOUNTER → 2023-03-01 13:43 | Outpatient (BNVA) | payer OTHER, SELFPAY | PROVIDERS: Visit Provider Internal Medicine | DX: I49.3 Ventricular premature depolarization (principal) | CPT/HCPCS: 99212 ==

== ENCOUNTER 2023-03-21 14:52 | Outpatient (AMB) | payer OTHER, SELFPAY ==
[2023-03-21 14:56] VITALS: BMI 34.3
--- NOTE | 2023-03-21 14:56 | A.OFFVIS_ITS ---
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 Required: No Accompanied by: Self / Same As Patient Allergies Penicillins [PENICILLINS] Allergy (Severe, Verified 03/21/23 14:56) HIVES Iodinated Contrast Media [IV CONTRAST] Allergy (Intermediate, Verified 03/21/23 14:56) HIVES peanut [PEANUTS] Allergy (Intermediate, Verified 03/21/23 14:56) HIVES shellfish derived [SHELLFISH DERIVED] Allergy (Intermediate, Verified 03/21/23 14:56) HIVES cat dander Allergy (Mild, Verified 03/21/23 14:56) unknown dog dander Allergy (Mild, Verified 03/21/23 14:56) unknown pollen extracts Allergy (Mild, Verified 03/21/23 14:56) runny nose, itchy eyes triamcinolone Allergy (Verified 03/21/23 14:56) Unknown HPI 3 mnth follow up HPI Details LAST VISIT IBS (irritable bowel syndrome) Continue low FODMAP diet. Continue regimen to help her move her bowels with senna and bulk them with Citrucel. Patient was also encouraged to drink plenty fluids and increase activity to promote better bowel motility. I will send patient script for milk of magnesia to have on hand when she will be constipated GERD (gastroesophageal reflux disease) Continue current treatment with pantoprazole and famotidine. Discussed with patient avoiding dietary triggers and late night snacking. Staying upright for minimum 3 hours after meals discussed with patient. Postprandial abdominal bloating Patient is taking Creon and tolerating well. She is on a very little dose, however she reports that this is sufficient enough for her and she has less bloating. Continue Creon with food. I will see patient in 3 months, sooner on as needed basis. Patient is agreeable to this plan and verbalizes understanding of instructions. She was given the opportunity to ask questions and all questions answered. ? Thank you for allowing me to participate in her care Plan Medications New magnesium hydroxide (Milk of Magnesia) 10 mL PO DAILY PRN 355 mL 2RF constipation Refilled sennosides (Alem-jeniffer) 17.2 mg (2 x 8.6 mg) PO BEDTIME 180 tabs 3RF Medical Decision Making MDM Narrative: Patient is a 52 year old assigned female at with a history of?asthma, migraines, kidney stones, and cervical cancer with hysterectomy in 1995 and cholecystectomy 2007?presenting to the emergency department today with right sided abdominal pain, nausea, and vomiting. Patient's physical exam was as noted in the physical exam portion of this chart. Patient's blood work showed an elevated WBC count of 15.2, likely secondary to nausea and vomiting. The rest of the patient's labs are grossly normal. Patient's urine showed no acute process. Patient's abdomen/pelvis CT showed moderate bilateral hydroureteronephrosis secondary to adhesions. Radiologist recommends surgery and urology consults. I spoke with the urologist who recommends the patient follow up on an outpatient basis. I spoke with the surgeon who evaluated the patient and stated she was not a surgical case at this time. I explained my physical exam findings as well as all test results to the patient. I answered all questions asked by the patient. Patient received IV protonix, zofran, morphine, reglan, and toradol which she stated helped her symptoms significantly. Patient was able to tolerate PO intake while in the department. Patient stated that she would rather follow up with her established urologist and surgeon I stressed the importance of the patient taking her medication as prescribed. I stressed the importance of the patient following up with her primary care provider, general surgeon, and urologist. I stressed the importance of the patient returning to the emergency department immediately if her symptoms were to worsen or if she were to develop any dizziness, shortness of breath, difficulty breathing, chest pain, blurry vision, loss of vision, nausea, vomiting, abdominal pain, fever, chills, back pain, or any other complaints. Patient verbalized agreement and understanding with this treatment plan and discharge. SURGICAL CONSULT FROM 02/13/2023 Plan I do not appreciate any acute surgical pathology based on the clinical findings reported to me.? Patient states she had a bowel movement yesterday and is passing gas today, which is inconsistent with a bowel obstruction.? Her abdominal exam has no peritoneal sign and no tympany.? She notes that the vomiting occurred after she self-medicated with milk of magnesia given her chronic abdominal complaints and diarrhea that is being followed by Gastroenterology.? Would assess her UA.? In my interpretation, the CT appears to be an ileus since there is gas and stool throughout the colon, the stomach is nondilated.? The patient's history including passing flatus and recent bowel movement, her abdominal exam and CT are not consistent with acute surgical pathology. TODAY'S VISIT: Patient is here today for follow-up and to discuss her recent visit in the emergency room. As mentioned above patient was seen in the ER in the beginning of last month. Patient states that she continues to have loose stools about 5 to 6 times a day. Patient states that she has been dealing with this since her cholecystectomy. Patient no longer has nausea or vomiting. Patient vomited and that is why she went to the emergency department because per patient she never really vomited before. Patient states that when she vomited it was not just mucus but also food. Patient states that she ate few hours before then. Patient felt that she was not emptying her bowels and was backed up and tried taking milk of magnesia hoping she will have a large bowel movement. Instead patient only had very small bowel movement and started vomiting shortly after taking milk of magnesia. Patient no longer has any nausea, no vomiting. Patient continues with the same symptoms that she had in the past which is postprandial loose stools. Patient reports occasional abdominal pain. Patient was diagnosed with adhesions close to the kidney. Saw her urologist and will be referred to general surgery. As mentioned above general surgery saw patient while patient was in the hospital. CT scan was reviewed by the provider and patient was evaluated while in the ER and no surgical recommendation was made at that time. Patient denies any melena, hematochezia, unintentional weight loss or ribbon like stools. Patient denies any dyspepsia, dysphagia or odynophagia. She continues to take pantoprazole every morning half an hour before breakfast and reports that her symptoms are suppressed for the most part. Patient had colonoscopy in 2018 and unable to pass the scope above 20 cm due to adhesions most likely status post hysterectomy. Patient does not want to go for colon oscopy. [facility] Medical History Abdominal pain Allergic rhinitis Bipolar depression Encounter for medication monitoring Fibromyalgia Gastritis HLA-B27 spondyloarthropathy Hx of small bowel obstruction Insomnia Lumbar spondylosis Migraine Mild intermittent asthma without complication Obesity (BMI 30-39.9) Osteoarthritis of multiple joints Palpitations Primary osteoarthritis of right hip Pure hypercholesterolemia Sacroiliac joint pain Vitamin D deficiency Surgical History History of carpal tunnel surgery History of esophagogastroduodenoscopy (EGD) History of extraction of renal calculus History of hand surgery History of hysterectomy Hx of cholecystectomy Hx of colonoscopy Hx of cystoscopy Hx of removal of ovary Hx of unilateral oophorectomy S/P cystourethroscopy with dilation of urethral stricture (~07/21/20) Family History Father Kidney problem Diabetes Mother Kidney malignancy Diabetes Brother Asthma Diabetes Social History Housing: House Alcohol intake: never Patient Tobacco Use Status: Never used Tobacco e-Cigarette/Vaping Use: Never Used Second Hand Smoke Exposure: No service: No Current occupational status: disabled Cognitive needs: No Hearing needs: No Vision needs: Yes Review of Systems Const Denies weight gain and Denies weight loss ENT Reports no additional complaints, Denies dysphagia and Denies odynophagia Card Reports no additional complaints Resp Reports no additional complaints GI Reports abdominal pain (Upper abdomen), Denies belching, Denies melena, Denies bloating, Reports constipation, Denies dysphagia, Denies excessive flatus, Denies dyspepsia, Denies heartburn, Denies diarrhea, Reports loose stools, Denies nausea, Denies odynophagia and Denies vomiting Reports no additional complaints Musc Reports no additional complaints Neuro Reports no additional complaints Psych Reports no additional complaints Endo Reports no additional complaints Physical Exam Vital Signs: BMI result Body Mass Index 34.3 Const General: cooperative, healthy appearing and comfortable Nutritional Appearance: obese Orientation/consciousness: patient oriented x3 Limitations: no limitations HEENT Head: Yes normal to inspection Ears: hearing grossly normal bilaterally General nose exam: Normal external nose present Face and sinus: Yes normal facial exam Mouth: Normal oral and palatal mucosa present Throat: Yes posterior oropharynx normal Eyes General: appearance normal, both eyes and all related structures Eyelids: Yes eyelids normal Conjunctivae: conjunctivae normal Sclerae: sclerae normal Pupils: Equal, round and reactive pupils present Neck Neck: Yes normal visual inspection, Yes full ROM, Yes no lymphadenopathy, Yes trachea midline and Yes supple Thyroid: Thyroid normal Lymphatic: no lymphadenopathy noted Chest Chest palpation & inspection: normal inspection of the chest Resp Effort & Inspection: normal respiratory effort and able to speak in complete sentences Auscultation: clear to auscultation bilaterally Cardio Rate: regular rate Rhythm: regular rhythm Heart sounds: S1 normal heart sound present and S2 normal heart sound present Peripheral pulses: Peripheral pulses 2+ throughout GI Inspection: No distended and Yes obesity Palpation (GI): Soft to palpation, nontender, no guarding, No hepatosplenomegaly present and No Rebound tenderness present Percussion: Yes normal to percussion Auscultation: normal bowel sounds Back/Spine/Pelvis Cervical Spine: cervical ROM normal and No cervical muscular tenderness Thoracic/Lumbar Spine: thoracic and lumbar spine normal to inspection Skin General skin exam: no rashes or lesions noted, elasticity normal and turgor normal Neuro General: patient oriented x3 Cranial nerves: Yes Equal, round and reactive pupils present Extrem General: Yes normal to inspection, Yes full ROM and Yes capillary refill normal Psych Appearance: grossly normal Mental Status: mental status grossly normal Speech and movement: Normal speech and movement present Insight: Good insight present (Psych) Assessment & Plan Assessment & Plan (1) IBS (irritable bowel syndrome): Code(s): K58.9 - Irritable bowel syndrome without diarrhea Qualifiers: Irritable bowel syndrome type: with both diarrhea and constipation Qualified Code(s): K58.2 - Mixed irritable bowel syndrome Plan: Continue treatment with Citrucel to manage diarrhea, however patient should take medications to help to stimulate her bowel. Will start her on Dulcolax. Patient will call in couple weeks if this not going to be effective. Patient has abdominal cramping most likely related to adhesions post hysterectomy and after her gallbladder surgery. Possible that some of the adhesions might restricted motion of small bowel are will or even large intestine. Patient had colonoscopy in 2018 and she was found to have extrinsic adhesions possibly from previous hysterectomy 1995. Upper endoscopy was done and they were able to pass with this cold to proximal transverse colon, however due to how much shorter endoscope was unable to pass further. Patient's pain most likely is related to adhesions and partially certain food that causes bloating. Patient is unable to empty her bowels completely which also causes gas trapping pain. (2) GERD (gastroesophageal reflux disease): Code(s): K21.9 - Gastro-esophageal reflux disease without esophagitis Qualifiers: Esophagitis presence: without esophagitis Qualified Code(s): K21.9 - Gastro-esophageal reflux disease without esophagitis Plan: Continue pantoprazole every morning. Discussed with patient avoiding dietary triggers in late night snacking. Staying upright for minimal 3 hours after meals discussed with patient. (3) Postprandial abdominal bloating: Code(s): R14.0 - Abdominal distension (gaseous) Plan: As mentioned above postprandial abdominal bloating related to food. Patient also had an episode when she vomited large amount of undigested food few hours after she ate. Possible that patient has gastroparesis or episode happen because of constipation and backing up with stool. Will send patient for gastric emptying study. If patient will not have results after taking Dulcolax we my start her on Motegrity. I will see patient in 5 weeks, sooner on as needed basis. Patient is agreeable to this plan and verbalizes understanding of instructions. She was given the opportunity to ask questions all questions answered. Thank you for allowing me to participate in her care Orders: Orders NM gastric emptying study Today K21.9 - Gastro-esophageal reflux disease without esophagitis Medications: New bisacodyl (Dulcolax (bisacodyl)) 10 mg (2 x 5 mg) PO BEDTIME 180 tabs 4RF Discontinued sennosides (Alem-jeniffer) Discontinued Reason: Doctor's Order 17.2 mg (2 x 8.6 mg) PO BEDTIME 180 tabs 3RF Coding Level of Care Code Est Pt Level 4 (52790) Diagnoses IBS (irritable bowel syndrome) K58.2 Irritable bowel syndrome type: with both diarrhea and constipation GERD (gastroesophageal reflux disease) K21.9 Esophagitis presence: without esophagitis Postprandial abdominal bloating R14.0 Time Spent (min) 40 Comment 25 minutes spent with patient and additional 15 minutes spent reviewing her records
== END 2023-03-21 15:49 | disposition home or self-care (01) ==
PROVIDERS: Visit Provider Nurse Practitioner Family
DX: K58.2 Mixed irritable bowel syndrome (principal); K21.9 Gastro-esophageal reflux disease without esophagitis; R14.0 Abdominal distension (gaseous)
CPT/HCPCS: 99214

== ENCOUNTER → 2023-03-21 14:52 | Outpatient (BNVA) | payer OTHER, SELFPAY | PROVIDERS: Visit Provider Nurse Practitioner Family | DX: K21.9 Gastro-esophageal reflux disease without esophagitis (principal); K58.2 Mixed irritable bowel syndrome; R14.0 Abdominal distension (gaseous) | CPT/HCPCS: 99212 ==

== ENCOUNTER 2023-03-26 14:48 | Outpatient (AMB) | payer OTHER, SELFPAY ==
--- NOTE | 2023-03-26 15:27 | MHC.OFFVIS ---
Intake Vital Signs 03/26/23 15:29 Height 5 ft 3 in Weight 193 lb 1.999 oz BMI 34.2 BP 138/88 Blood Pressure Location Lt brachial Position Sitting Pulse 88 Pulse Source Pulse Oximeter Temp 98.6 F Temp Source Skin Pulse Oximetry (%) 96 Oxygen Delivery Method Room Air Intake Visit Reasons: OA/FM Intake Note: Here for OA and fibromyalgia follow up. 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 Accompanied by: Self / Same As Patient Allergies Penicillins [PENICILLINS] Allergy (Severe, Verified 03/26/23 15:28) HIVES Iodinated Contrast Media [IV CONTRAST] Allergy (Intermediate, Verified 03/26/23 15:28) HIVES peanut [PEANUTS] Allergy (Intermediate, Verified 03/26/23 15:28) HIVES shellfish derived [SHELLFISH DERIVED] Allergy (Intermediate, Verified 03/26/23 15:28) HIVES cat dander Allergy (Mild, Verified 03/26/23 15:28) unknown dog dander Allergy (Mild, Verified 03/26/23 15:28) unknown pollen extracts Allergy (Mild, Verified 03/26/23 15:28) runny nose, itchy eyes triamcinolone Allergy (Verified 03/26/23 15:28) Unknown Medication List - Last Reconciled 03/26/23 by Huey Lou MD albuterol sulfate 90 mcg/actuation 2 puffs inhalation Q4-6H PRN atorvastatin 20 mg PO DAILY 90 days baclofen 20 mg PO BID 30 days benzonatate 100 - 200 mg PO bimatoprost 0.01% (Lumigan) 1 drp ophthalmic (eye) BEDTIME bisacodyl (Dulcolax (bisacodyl)) 10 mg (2 x 5 mg) PO BEDTIME bupropion HCl 150 mg PO QAM cetirizine (Zyrtec) 10 mg PO DAILY cholecalciferol (vitamin D3) 50 mcg PO DAILY clonazepam (Klonopin) 1 mg PO BID cyclosporine 0.05% (Restasis) 1 drp ophthalmic (eye) Q12H dorzolamide-timolol 22.3-6.8 mg/mL 1 drp ophthalmic (eye) BID duloxetine 60 mg PO DAILY epinephrine IM famotidine 20 mg PO BEDTIME 90 days fluticasone propionate 50 mcg/actuation 1 spray intranasal DAILY fluticasone propionate 220 mcg/actuation (Flovent HFA) 1 puff inhalation BID gabapentin 800 mg PO Q8H 30 days [id number]-[id number] 6,000-19,000 -30,000 unit (Creon) 1 cap PO .qid ac methylcellulose (laxative) (Citrucel) 500 mg PO DAILY metoprolol tartrate 25 mg PO BID montelukast (Singulair) 10 mg PO DAILY naloxone 4 mg/actuation (Narcan) 4 mg intranasal Q2M PRN naratriptan take 1 tab at onset of headache; if no relief may repeat 1 tab after at least 4 hrs; max = 2 tabs/24 hrs PO omalizumab (Xolair) 150 mg subcut Q4W ondansetron 4 mg PO Q8H 3 days pantoprazole 40 mg PO DAILY [SHOWER CHAIR As directed] tramadol 50 mg PO BID travoprost 0.004% (Travatan Z) 1 drp ophthalmic (eye) QPM valacyclovir 500 mg PO BID 7 days zolpidem (Ambien) 10 mg PO BEDTIME PRN 30 days HPI HPI Comments History of Present Illness Details The patient presents today for evaluation of her osteoarthritis and fibromyalgia. She has been receiving occasional corticosteroid injections in the spine from pain management. These have helped somewhat her lower back and right hip pain. She is disturbed because the Pain Management people think she may need a hip replacement. She does get pain in the hip after walking about 10 minutes. This is felt posteriorly and laterally with some radiation to the groin. It does not really bother her at night. She also has numerous other pains involving the neck, shoulders, forearms, knees, and feet. She is on duloxetine, gabapentin, baclofen, Ambien and tramadol 50 mg b.i.d.. She is not sure the tramadol helps a whole lot her pains. She is taking only one 800 mg gabapentin a day. She was previously on it 2 or 3 times a day but seems to be missing the full prescription. In the past she was thought to possibly have a spondyloarthritis but failed treatment subsequently with methotrexate, sulfasalazine, and Humira. Eventually it was decided she did not have inflammatory disease. In her 20s it sounds like she had a hysterectomy for cancer. She was treated afterwards with radiation therapy. She developed back pain and developed thoracic spine compression fractures. She says they are due to the radiation treatment. [facility] Medical History (Updated 03/26/23 @ 17:07 by Huey Lou MD) Abdominal pain Allergic rhinitis Bipolar depression Encounter for medication monitoring Fibromyalgia Gastritis HLA-B27 spondyloarthropathy Hx of small bowel obstruction Insomnia Lumbar spondylosis Migraine Mild intermittent asthma without complication Obesity (BMI 30-39.9) Osteoarthritis of multiple joints Palpitations Primary osteoarthritis of right hip Pure hypercholesterolemia Sacroiliac joint pain Vitamin D deficiency Surgical History History of carpal tunnel surgery History of esophagogastroduodenoscopy (EGD) History of extraction of renal calculus History of hand surgery History of hysterectomy Hx of cholecystectomy Hx of colonoscopy Hx of cystoscopy Hx of removal of ovary Hx of unilateral oophorectomy S/P cystourethroscopy with dilation of urethral stricture (~07/21/20) Family History Father Kidney problem Diabetes Mother Kidney malignancy Diabetes Brother Asthma Diabetes Social History Housing: House Alcohol intake: never Patient Tobacco Use Status: Never used Tobacco e-Cigarette/Vaping Use: Never Used Second Hand Smoke Exposure: No service: No Current occupational status: disabled Cognitive needs: No Hearing needs: No Vision needs: Yes Review of Systems Const Details: Negative for appetite change, weight change, fever, chills, malaise and fatigue Eyes Details: Negative for vision change, dry eyes,headaches and dizziness ENT Details: Negative for hearing change, tinnitus, oral ulcer, nose bleeds and oral dryness. Card Details: Negative chest pain, edema and syncope Resp Details: Negative for SOB, cough and wheezing GI Details: Occasional heartburn. Helped with current medications. Negative indigestion/heartburn, nausea, abdominal pain, bowel changes, diarrhea, constipation and bloody stool. Psych Details: anxiety, depression she says made worse by her chronic pain. Her [id number] has a planned knee replacement that she is worried about. Loy/Lymph Details: Negative for excessive bruising or bleeding. Physical Exam Vital Signs: Last Vital Signs Temp 98.6 F 03/26/23 15:29 Pulse 88 03/26/23 15:29 BP 138/88 03/26/23 15:29 Pulse Ox 96 03/26/23 15:29 Oxygen Delivery Method Room Air 03/26/23 15:29 BMI result Body Mass Index 34.2 APPEARANCE: Patient in no acute distress EYES no redness, pupils equal and reactive to light, eyelids normal ABD: Normal bowel sounds, no organomegaly, masses or tenderness. EXTREMITIES: No edema, no calf tenderness, normal peripheral pulses. NEURO: Oriented and alert x3. No focal weakness. Reflexes symmetric. Gait normal. SKIN: No inflammatory or neoplastic lesions. Normal color and turgor JOINT EXAM: SKIN:? No inflammatory or neoplastic lesions.? Normal color and turgor JOINT EXAM:.?? Cervical Spine:? Full range of motion with mild discomfort. There is no tenderness over the cervical spine.? Widespread diffuse tenderness to palpation of cervical spinal muscles. Thoracic Spine:? No scoliosis.? No tenderness on palpation. Lumbar Spine:? Alignment normal.? Full range of motion, pain with flexion and extension, tenderness to palpation of the lumbar spine and bilateral posterior buttocks.? Negative Virginia's test.? Normal occiput to wall test. Hands:? Normal pain-free range of motion without tenderness, swelling, increased warmth or erythema. Able to make a full fist and has a good bench molder strength. Wrists:? Normal pain-free range of motion without tenderness, swelling, increased warmth or erythema. Elbows:Normal pain-free range of motion without tenderness, swelling, increased warmth or erythema. Shoulders:?? Full range of motion with mild discomfort. This seems to be felt over the trapezius. There is some mild tenderness over the trapezius muscle and anterior shoulders but no adenopathy, abductor weakness, swelling, increased warmth or erythema. Hips:? Right: Mild buttock and groin pain with flexion at 100 degrees, any internal rotation, or the extremes of abduction or external rotation. External rotation in abduction or probably limited to only about 10 degrees. The groin pain is more reproducible with rotation than any other movements. Left: Full range of motion with some lumbar pain at the extremes of internal or external rotation. Hip bursa: Mild bilateral trochanteric tenderness. Knees:?? Normal pain-free range of motion with slight patellofemoral crepitus but no effusion, tenderness, swelling, increased warmth or erythema.? Ankles:? Normal pain-free range of motion without tenderness, swelling, increased warmth or erythema. Feet:? Normal pain-free range of motion without tenderness, swelling, increased warmth or erythema. Tender points: Mild tenderness to digital palpation at the occiput, trapezius, second rib, lateral epicondyle, knees, greater trochanter and gluteal area bilaterally. ? Results Reviewed Results Reviewed: [address] [address] XRay Report Signed Patient: Yanci Toney MR#: [id number] : 1970 Acct:[id number] Age/Sex: 52 / F ADM Date: 05/08/[address]: Nicolás Thomas MD Ordering Physician: Nicolás Thomas MD Date of Service: 05/08/22 Procedure(s): XR hips ANDREINA min 3V Accession Number(s): [id number] cc: Nicolás Thomas MD~ EXAMINATION: XR BILATERAL HIPS WITH AP PELVIS CLINICAL INFORMATION: Primary osteoarthritis of the hips. COMPARISON: 08/04/2019 TECHNIQUE: 2 views of each hip. FINDINGS: No fracture or dislocation. Both hips are well aligned. Mild narrowing of the right hip joint space. Small marginal osteophytes of both hips. The pelvic rim is intact. The sacroiliac joints and pubic symphysis are intact. Surgical clips overlie the pelvis. Calcification along the left pelvic rim. Normal bowel gas pattern. XR/XR hips ANDREINA min 3V IMPRESSION: Mild degenerative changes of the hips. 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 COMPARISON: MRI thoracic spine of 10/31/2017 and thoracic spine of 07/13/2016.? TECHNIQUE: 3 views of the thoracic spine.? FINDINGS: There is mild scoliosis of the thoracic spine convex left. There is some mild wedging without significant loss of height involving the T7, T9, and T10 vertebral bodies. Multilevel spurring is present, most prominent along the right lateral aspect within the mid and lower thoracic spine with some regions of bridging T5-T12. No significant abnormal paraspinal bulge is seen. Pedicles appear intact. XR/XR thoracic spine 2V IMPRESSION: Degenerative change of the thoracic spine as described which is similar to previous examination of 07/13/2016 with no definite new fracture appreciated.? Dictated By: EDILIA LUNA MD Signed By: <Electronically signed by EDILIA LUNA MD? Assessment & Plan Assessment & Plan (1) Osteoarthritis of right hip: Code(s): M16.11 - Unilateral primary osteoarthritis, right hip (2) Compression fracture of body of thoracic vertebra: Code(s): S22.000A - Wedge compression fracture of unspecified thoracic vertebra, initial encounter for closed fracture (3) Lumbar spondylosis: Comment: Humira 11/2017-12/2017 Methotrexate: 04/2019-07/2019 Sulfasalazine : 04/2019-07/2019 Code(s): M47.816 - Spondylosis without myelopathy or radiculopathy, lumbar region (4) Fibromyalgia: Code(s): M79.7 - Fibromyalgia Plan The patient continues with many areas of pain. Prominent of these of course is this right hip pain. It is accompanied by painful range of motion in the hip so I think that the likelihood is that most of her hip pain is coming from osteoarthritis of the hip. The right hip has shown osteoarthritis for at least 10 years although radiographically actually judged to be relatively mild. It may be progressing at this point as she is having more symptoms. We discussed quite a bit the pros and cons of hip replacement surgery. She does not feel like she is at the level of pain that would make her want to proceed with that for now. I am going to update her hip film. She also has lumbar pain consistent with lumbar osteoarthritis. That was helped apparently with some injections from pain management. The fibromyalgia of course is difficult for her to tolerate as well. I think she could tolerate some gabapentin during the day to help with the fibromyalgia. She will discuss with pain management about getting prescriptions that lasts longer than 10 days. She has a history of a compression fracture, probably related to radiation therapy many years ago. She is now postmenopausal and likely could benefit from assessment of her bone density. She may need some treatment for osteopenia or osteoporosis in the future. I do not have additional pain management suggestions to suggest for now. We will get back to her with the results of her studies. Follow-up at 4 months is recommended. Review were patient's history in the current record and the older record, her exam today, and discussion of treatment options took 45 minutes. Orders: Orders XR hip RT w PEL1V Today M16.11 - Unilateral primary osteoarthritis, right hip XR DEXA axial skeleton Today S22.000A - Wedge compression fracture of unspecified thoracic vertebra, initial encounter for closed fracture Coding Level of Care Code Est Pt Level 5 (70977) Diagnoses Osteoarthritis of right hip M16.11 Compression fracture of body of thoracic vertebra S22.000A Lumbar spondylosis M47.816 Fibromyalgia M79.7
[2023-03-26 15:29] VITALS: BP 138/88; PULSE 88; TEMP 37; O2SAT 96; BMI 34.2
== END 2023-03-26 16:39 | disposition home or self-care (01) ==
PROVIDERS: PCP Internal Medicine; Visit Provider Internal Medicine Rheumatology
DX: M79.7 Fibromyalgia (principal); M16.11 Unilateral primary osteoarthritis, right hip; S22.000A Wedge compression fracture of unspecified thoracic vertebra, initial encounter for closed fracture; M47.816 Spondylosis without myelopathy or radiculopathy, lumbar region
CPT/HCPCS: 99215

== ENCOUNTER 2023-03-26 14:48 | Outpatient (REF) | payer OTHER, SELFPAY ==
--- NOTE | ~2023-03-26 | XR_ITS ---
EXAMINATION: XR HIP, RIGHT CLINICAL INFORMATION: Osteoarthritis, question progression COMPARISON: 05/08/2022 right hip radiograph, 01/25/2023 right hip fluoroscopy TECHNIQUE: Two views of the right hip and AP pelvis FINDINGS: Bone on bone, severe right hip joint space narrowing and sclerosis having demonstrated progression from 05/08/2022. Right hip is higher than the left. Right greater trochanteric spurring. No fracture or dislocation. Surgical clips, pelvic calcifications. XR/XR hip RT w PEL1V IMPRESSION: Progression of severe right hip osteoarthritis.
== END 2023-03-26 14:49 | disposition home or self-care (01) ==
LOC: HO.XRAY 14:48
PROVIDERS: PCP Internal Medicine; Visit Provider Internal Medicine Rheumatology
DX: M16.11 Unilateral primary osteoarthritis, right hip (principal); M47.816 Spondylosis without myelopathy or radiculopathy, lumbar region; M79.7 Fibromyalgia; S22.000D Wedge compression fracture of unspecified thoracic vertebra, subsequent encounter for fracture with routine healing
CPT/HCPCS: 73502; 99212

== ENCOUNTER 2023-03-30 13:35 | Outpatient (REF) | payer OTHER, SELFPAY ==
--- NOTE | ~2023-03-30 | MM_ITS ---
EXAMINATION: BONE DENSITOMETRY CLINICAL INDICATION: Wedge compression fracture of unspecified thoracic vertebra. COMPARISON: This is the patient's baseline examination. TECHNIQUE: Using a [employer] DXA System (software version: 13.1) manufactured by [employer], dual-energy x-ray absorptiometry was performed of the lumbar spine and left hip. The images are of good technical quality. Summary results are attached. FINDINGS: LEFT FEMUR, NECK: BMD 0.944 g/cm2, Z-score -0.3, T-score -0.7, normal. LEFT FEMUR, TOTAL: BMD 1.052 g/cm2, Z-score 0.4, T-score 0.4, normal. AP SPINE L1-L4: BMD 0.959 g/cm2, Z-score -2.0, T-score -1.8, osteopenia. IDENTIFIED RISK FACTORS: Early menopause, secondary osteoporosis, history of fracture (adult), hysterectomy, left oophorectomy. HISTORY OF FRACTURE: Spine. MEDICATIONS: Vitamin D. MM/XR DEXA axial skeleton IMPRESSION: 1. DIAGNOSIS: Osteopenia based on the lowest T-score value of -1.8 in the lumbar spine applying World Health Organization criteria. 2. 10-YEAR FRACTURE RISK PREDICTION, FRAX: Major osteoporotic fracture (clinical spine, forearm, hip or shoulder) 4.1%. Hip fracture 0.1%. 3. Treatment Recommendations: NOF guidelines recommend consideration for treatment in postmenopausal women and men age 50 and older presenting with the following: -A hip or vertebral (clinical or morphometric) fracture. -T-score less than or equal to -2.5 at the femoral neck or spine after appropriate evaluation to exclude secondary causes. -Low bone mass at the hip or spine and a 10-year fracture probability by FRAX of greater than or equal to 3% for hip fracture or greater than or equal to 20% for major osteoporotic fracture based on the [place] adapted WHO algorithm. 4. Other Recommendations: All treatment decisions require clinical judgment and consideration of individual patient factors, including patient preferences, comorbidities, previous drug use, risk factors not captured in the FRAX model (e.g. frailty, falls, vitamin D deficiency, increased bone turnover, interval significant decline in bone density) and possible under or overestimation of fracture risk by FRAX. Additional medical evaluation for secondary cause of low bone mineral density may be appropriate. FUTURE SCAN RECOMMENDATION: People with diagnosed cases of osteoporosis or at high risk for fracture should have regular bone mineral density tests. For patients eligible for Medicare, routine testing is allowed once every 2 years. The testing frequency can be increased to one year for patients who have rapidly progressing disease, those who are receiving or discontinuing medical therapy to restore bone mass, or have additional risk factors.
== END 2023-03-30 13:36 | disposition home or self-care (01) ==
LOC: HO.MAMMO 13:35
PROVIDERS: PCP Internal Medicine; Visit Provider Internal Medicine Rheumatology
DX: Z13.820 Encounter for screening for osteoporosis (principal); S22.000A Wedge compression fracture of unspecified thoracic vertebra, initial encounter for closed fracture; Z78.0 Asymptomatic menopausal state
CPT/HCPCS: 77080

== ENCOUNTER → 2023-03-30 14:00 | Outpatient (BNV) | payer OTHER, SELFPAY | PROVIDERS: PCP Internal Medicine; Visit Provider Radiology Diagnostic Radiology | DX: M85.88 Other specified disorders of bone density and structure, other site (principal) | CPT/HCPCS: 77080 ==

== ENCOUNTER 2023-05-02 13:48 | Outpatient (AMB) | payer OTHER, SELFPAY ==
[2023-05-02 13:51] VITALS: BP 134/67; PULSE 89; BMI 34.4
--- NOTE | 2023-05-02 13:51 | A.OFFVIS_ITS ---
Intake Vital Signs 05/02/23 13:51 Height 5 ft 3 in Weight 194 lb 0.108 oz BMI 34.4 BP 134/67 Blood Pressure Location Lt brachial Position Sitting Pulse 89 Intake Visit Reasons: 5 week follow up, nm gastric empty Intake Note: Yanci presents in the office as a 5 week follow up. CC: She is here for results to her GES - no other concerns today. Allergies Penicillins [PENICILLINS] Allergy (Severe, Verified 05/02/23 13:53) HIVES Iodinated Contrast Media [IV CONTRAST] Allergy (Intermediate, Verified 05/02/23 13:53) HIVES peanut [PEANUTS] Allergy (Intermediate, Verified 05/02/23 13:53) HIVES shellfish derived [SHELLFISH DERIVED] Allergy (Intermediate, Verified 05/02/23 13:53) HIVES cat dander Allergy (Mild, Verified 05/02/23 13:53) unknown dog dander Allergy (Mild, Verified 05/02/23 13:53) unknown pollen extracts Allergy (Mild, Verified 05/02/23 13:53) runny nose, itchy eyes triamcinolone Allergy (Verified 05/02/23 13:53) Unknown Medication List - Last Reconciled 05/02/23 by GRAHAM LiraP- albuterol sulfate 90 mcg/actuation 2 puffs inhalation Q4-6H PRN atorvastatin 20 mg PO DAILY 90 days baclofen 20 mg PO BID 30 days benzonatate 100 - 200 mg PO bimatoprost 0.01% (Lumigan) 1 drp ophthalmic (eye) BEDTIME bisacodyl (Dulcolax (bisacodyl)) 10 mg (2 x 5 mg) PO BEDTIME bupropion HCl 150 mg PO QAM cetirizine (Zyrtec) 10 mg PO DAILY cholecalciferol (vitamin D3) 50 mcg PO DAILY clonazepam (Klonopin) 1 mg PO BID cyclosporine 0.05% (Restasis) 1 drp ophthalmic (eye) Q12H dorzolamide-timolol 22.3-6.8 mg/mL 1 drp ophthalmic (eye) BID duloxetine 60 mg PO DAILY epinephrine IM famotidine 20 mg PO BEDTIME 90 days fluticasone propionate 50 mcg/actuation 1 spray intranasal DAILY fluticasone propionate 220 mcg/actuation (Flovent HFA) 1 puff inhalation BID gabapentin 800 mg PO Q8H 30 days [id number]-nrrxionf-zuwltfg 6,000-19,000 -30,000 unit (Creon) 1 cap PO .qid ac methylcellulose (laxative) (Citrucel) 500 mg PO DAILY metoprolol tartrate 25 mg PO BID montelukast (Singulair) 10 mg PO DAILY naloxone 4 mg/actuation (Narcan) 4 mg intranasal Q2M PRN naratriptan take 1 tab at onset of headache; if no relief may repeat 1 tab after at least 4 hrs; max = 2 tabs/24 hrs PO omalizumab (Xolair) 150 mg subcut Q3W ondansetron 4 mg PO Q8H 3 days pantoprazole 40 mg PO DAILY [SHOWER CHAIR As directed] tramadol 50 mg PO BID travoprost 0.004% (Travatan Z) 1 drp ophthalmic (eye) QPM valacyclovir 500 mg PO BID 7 days zolpidem (Ambien) 10 mg PO BEDTIME PRN 30 days HPI 5 week follow up, nm gastric empty HPI Details LAST VISIT IBS (irritable bowel syndrome) Continue treatment with Citrucel to manage diarrhea, however patient should take medications to help to stimulate her bowel. Will start her on Dulcolax. Patient will call in couple weeks if this not going to be effective. Patient has abdominal cramping most likely related to adhesions post hysterectomy and after her gallbladder surgery. Possible that some of the adhesions might restricted motion of small bowel are will or even large intestine. Patient had colonoscopy in 2018 and she was found to have extrinsic adhesions possibly from previous hysterectomy 1995. Upper endoscopy was done and they were able to pass with this cold to proximal transverse colon, however due to how much shorter endoscope was unable to pass further. Patient's pain most likely is related to adhesions and partially certain food that causes bloating. Patient is unable to empty her bowels completely which also causes gas trapping pain. GERD (gastroesophageal reflux disease) Continue pantoprazole every morning. Discussed with patient avoiding dietary triggers in late night snacking. Staying upright for minimal 3 hours after meals discussed with patient. Postprandial abdominal bloating As mentioned above postprandial abdominal bloating related to food. Patient also had an episode when she vomited large amount of undigested food few hours after she ate. Possible that patient has gastroparesis or episode happen because of constipation and backing up with stool. Will send patient for gastric emptying study. If patient will not have results after taking Dulcolax we my start her on Motegrity. I will see patient in 5 weeks, sooner on as needed basis. Patient is agreeable to this plan and verbalizes understanding of instructions. She was given the opportunity to ask questions all questions answered. TODAY'S VISIT Patient has been having no GI concerning symptoms. Reports that she has been feeling better. Occasional postprandial abdominal bloating depending on what she eats. Patient reports to continue to have left sided abdominal pain, however feels like it is happening in her back. Patient has confirmed diagnosis of left kidney decreased emptying possible due to narrowing of the urethra. Patient has been seen by [facility] and has an appointment with them after ultrasound. Recently seen in the office on the . Patient takes bisacodyl tablets at bedtime and reports to be moving her bowels better. Patient is taking pantoprazole in the morning and her symptoms of acid reflux are suppressed for the most part. Patient is also taking famotidine at bedtime. Patient denies any nausea or vomiting. Denies dyspepsia, dysphagia or odynophagia. Has not scheduled gastric emptying study yet. Continues to feel full after meals quickly. [facility] Medical History (Updated 03/26/23 @ 17:07 by Huey Lou MD) Sacroiliac joint pain Encounter for medication monitoring Palpitations Gastritis Fibromyalgia Hx of small bowel obstruction Abdominal pain Obesity (BMI 30-39.9) Bipolar depression Insomnia HLA-B27 spondyloarthropathy Osteoarthritis of multiple joints Vitamin D deficiency Migraine Allergic rhinitis Mild intermittent asthma without complication Pure hypercholesterolemia Primary osteoarthritis of right hip Lumbar spondylosis Surgical History S/P cystourethroscopy with dilation of urethral stricture (~07/21/20) History of esophagogastroduodenoscopy (EGD) Hx of unilateral oophorectomy Hx of colonoscopy Hx of cholecystectomy Hx of cystoscopy History of extraction of renal calculus Hx of removal of ovary History of carpal tunnel surgery History of hand surgery History of hysterectomy Family History Father Kidney problem Diabetes Mother Kidney malignancy Diabetes Brother Asthma Diabetes Social History Housing: House Alcohol intake: never Patient Tobacco Use Status: Never used Tobacco e-Cigarette/Vaping Use: Never Used Second Hand Smoke Exposure: No service: No Current occupational status: disabled Cognitive needs: No Hearing needs: No Vision needs: Yes Review of Systems Const Denies weight gain and Denies weight loss ENT Reports no additional complaints, Denies dysphagia and Denies odynophagia Card Reports no additional complaints Resp Reports no additional complaints GI Denies abdominal pain, Denies belching, Denies melena, Denies bloating, Denies change in bowel habits, Denies dysphagia, Denies excessive flatus, Denies dyspepsia, Denies heartburn, Denies diarrhea, Denies loose stools, Denies nausea, Denies odynophagia and Denies vomiting Reports no additional complaints Musc Reports no additional complaints Neuro Reports no additional complaints Psych Reports no additional complaints Endo Reports no additional complaints Physical Exam Vital Signs: Last Vital Signs Pulse 89 05/02/23 13:51 BP 134/67 05/02/23 13:51 BMI result Body Mass Index 34.4 Const General: healthy appearing, no acute distress and well developed Nutritional Appearance: obese Orientation/consciousness: patient oriented x3 HEENT Head: Yes normal to inspection, Yes normocephalic and Yes atraumatic Face and sinus: Yes normal facial exam Mouth: Normal oral and palatal mucosa present Throat: Yes posterior oropharynx normal, Yes tonsils normal and Yes uvula midline Eyes General: appearance normal, both eyes and all related structures Neck Neck: Yes normal visual inspection, Yes full ROM and Yes trachea midline Thyroid: Thyroid normal Resp Effort & Inspection: normal respiratory effort, able to speak in complete sentences, no tracheal deviation and symmetric chest movement Auscultation: clear to auscultation bilaterally Cardio Rate: regular rate Heart sounds: S1 normal heart sound present and S2 normal heart sound present GI Inspection: Yes normal to inspection, No distended and Yes obesity Palpation (GI): Soft to palpation, not firm, nontender and No hepatosplenomegaly present Auscultation: normal bowel sounds General: Yes no CVA tenderness Back/Spine/Pelvis Back: no CVA tenderness Skin General skin exam: elasticity normal, turgor normal and dry skin Neuro General: patient oriented x3 Psych Appearance: grossly normal Mental Status: mental status grossly normal Assessment & Plan Assessment & Plan (1) IBS (irritable bowel syndrome): Code(s): K58.9 - Irritable bowel syndrome without diarrhea Qualifiers: Irritable bowel syndrome type: without diarrhea Qualified Code(s): K58.9 - Irritable bowel syndrome without diarrhea (2) GERD (gastroesophageal reflux disease): Code(s): K21.9 - Gastro-esophageal reflux disease without esophagitis Qualifiers: Esophagitis presence: esophagitis presence not specified Qualified Code(s): K21.9 - Gastro-esophageal reflux disease without esophagitis (3) Postprandial abdominal bloating: Code(s): R14.0 - Abdominal distension (gaseous) Plan Continue current treatment with pantoprazole and famotidine. Discussed with patient avoiding dietary triggers. Patient is seen by [facility]. Will wait to schedule patient for gastric emptying study. Continue low FODMAP diet. Continue taking Dulcolax tablets. Patient was encouraged to increase fluid intake and activity to promote better bowel motility. I will see patient in 4 months, sooner on as needed basis. Patient is agreeable to this plan and verbalizes understanding of instructions. She was given the opportunity to ask questions and all questions answered. Thank you for allowing me to participate in her care Coding Level of Care Code Est Pt Level 4 (64609) Diagnoses Irritable bowel syndrome without diarrhea K58.9 Irritable bowel syndrome type: without diarrhea Gastroesophageal reflux disease, unspecified whether esophagitis present K21.9 Esophagitis presence: esophagitis presence not specified Postprandial abdominal bloating R14.0 Time Spent (min) 35 Comment 20 minutes spent with patient and additional 15 minutes spent reviewing her records
== END 2023-05-02 14:35 | disposition home or self-care (01) ==
PROVIDERS: PCP Internal Medicine; Visit Provider Nurse Practitioner Family
DX: K58.9 Irritable bowel syndrome, unspecified (principal); K21.9 Gastro-esophageal reflux disease without esophagitis; R14.0 Abdominal distension (gaseous)
CPT/HCPCS: 99214

== ENCOUNTER → 2023-05-02 13:48 | Outpatient (BNVA) | payer OTHER, SELFPAY | PROVIDERS: PCP Internal Medicine; Visit Provider Nurse Practitioner Family | DX: K58.9 Irritable bowel syndrome, unspecified (principal); K21.9 Gastro-esophageal reflux disease without esophagitis; R14.0 Abdominal distension (gaseous) | CPT/HCPCS: 99212 ==

== ENCOUNTER 2023-05-26 10:08 | Outpatient (REF) | payer OTHER, SELFPAY ==
[2023-05-26 10:36] LABS: MANUAL DIFF FLAG NO
[2023-05-26 11:02] LABS: Basophils Absolute Auto 0.1 X10*3/uL (0.0-0.2); Basophils Percent Auto 0.5 % (0-2); Eosinophils Absolute Auto 0.3 X10*3/uL (0.0-0.4); Eosinophils Percent Auto 2.5 % (0-4); Hematocrit 38.6 % (37.0-47.0); Hemoglobin 12.1 g/dl (12.0-16.0); Imm Gran Abs Auto 0.05 X10*3/uL (0.00-0.03); Imm Gran Pct Auto 0.5 % (0.0-0.4); Lymphocytes Absolute Auto 1.3 X10*3/uL (1.2-4.9); Lymphocytes Percent Auto 12.2 % (20-40); Mean Corpuscular HGB Conc 31.3 g/dl (31.0-35.0); Mean Corpuscular Hemoglobin 27.4 pg (27.0-33.0); Mean Corpuscular Volume 87.3 fL (80.0-98.0); Monocytes Absolute Auto 0.6 X10*3/uL (0.1-1.2); Monocytes Percent Auto 5.6 % (2-11); Neutrophils Absolute Auto 8.3 x10*3/uL (2.0-8.3); Neutrophils Percent Auto 78.7 % (45-73); Platelet Count 405 X10*3/uL (160-400); Red Blood Count 4.42 X10*6/uL (4.20-5.50); Red Cell Distribution Width 14.2 % (11.0-16.0); White Blood Count 10.6 X10*3/uL (4.8-10.8)
[2023-05-26 11:59] LABS: Alanine Aminotransferase 24 U/L (0-31); Albumin Level 4.1 g/dL (3.5-5.0); Alkaline Phosphatase 92 U/L (39-117); Anion Gap 14 (12-20); Aspartate Amino Transferase 12 U/L (5-31); Bilirubin Total 0.3 mg/dL (0.0-1.0); Blood Urea Nitrogen 12 mg/dL (9-16); Calcium 9.9 mg/dL (8.4-10.2); Carbon Dioxide 23 mmol/L (22-29); Chloride 108 mmol/L (96-108); Cholesterol 217 mg/dL (<200); Estimated Glomerular Filt Rate > 60; Glucose Fasting 97 mg/dL (60-99); HDL Cholesterol 53 mg/dL (>40); LDL Cholesterol Calculated 96 mg/dL (<100); Potassium 4.1 mmol/L (3.3-5.1); Sodium 141 mmol/L (135-145); Total Protein 7.6 g/dL (6.5-8.0); Triglycerides 342 mg/dL (<150)
== END 2023-05-26 10:09 | disposition home or self-care (01) ==
LOC: HO.LAB 10:08
PROVIDERS: PCP Internal Medicine; Visit Provider Internal Medicine
DX: I10 Essential (primary) hypertension (principal); E78.00 Pure hypercholesterolemia, unspecified
CPT/HCPCS: 36415; 80053; 80061; 85025

== ENCOUNTER 2023-05-28 15:08 | Outpatient (AMB) | payer OTHER, SELFPAY ==
[2023-05-28 15:12] VITALS: BP 124/80; PULSE 85; O2SAT 97; BMI 34.1
--- NOTE | 2023-05-28 15:12 | A.OFFPC_ITS ---
Vital Signs 05/28/23 15:12 Height 5 ft 3 in Weight 192 lb 6 oz BMI 34.1 BP 124/80 Blood Pressure Location Lt brachial Position Sitting Pulse 85 Pulse Source Pulse Oximeter Pulse Oximetry (%) 97 Oxygen Delivery Method Room Air Intake Visit Reasons: F/Up sacroiliitis, fibromyalgia,OA, hyperlipidemia Fire Alarm Inspector Required: No Accompanied by: Self / Same As Patient Allergies Penicillins [PENICILLINS] Allergy (Severe, Verified 05/28/23 16:06) HIVES Iodinated Contrast Media [IV CONTRAST] Allergy (Intermediate, Verified 05/28/23 16:06) HIVES peanut [PEANUTS] Allergy (Intermediate, Verified 05/28/23 16:06) HIVES shellfish derived [SHELLFISH DERIVED] Allergy (Intermediate, Verified 05/28/23 16:06) HIVES cat dander Allergy (Mild, Verified 05/28/23 16:06) unknown dog dander Allergy (Mild, Verified 05/28/23 16:06) unknown pollen extracts Allergy (Mild, Verified 05/28/23 16:06) runny nose, itchy eyes triamcinolone Allergy (Verified 05/28/23 16:06) Unknown Medication List - Last Reconciled 05/28/23 by Christ Goodwin MD albuterol sulfate 90 mcg/actuation 2 puffs inhalation Q4-6H PRN atorvastatin 20 mg PO DAILY 90 days baclofen 20 mg PO BID 30 days benzonatate 100 - 200 mg PO bimatoprost 0.01% (Lumigan) 1 drp ophthalmic (eye) BEDTIME bisacodyl (Dulcolax (bisacodyl)) 10 mg (2 x 5 mg) PO BEDTIME bupropion HCl 150 mg PO QAM cetirizine (Zyrtec) 10 mg PO DAILY cholecalciferol (vitamin D3) 50 mcg PO DAILY clonazepam (Klonopin) 1 mg PO BID cyclosporine 0.05% (Restasis) 1 drp ophthalmic (eye) Q12H dorzolamide-timolol 22.3-6.8 mg/mL 1 drp ophthalmic (eye) BID duloxetine 60 mg PO DAILY epinephrine IM famotidine 20 mg PO BEDTIME 90 days fluticasone propionate 50 mcg/actuation 1 spray intranasal DAILY fluticasone propionate 220 mcg/actuation (Flovent HFA) 1 puff inhalation BID gabapentin 800 mg PO Q8H 30 days bxhkqk-ntrqvbbk-vrnqcis 6,000-19,000 -30,000 unit (Creon) 1 cap PO .qid ac methylcellulose (laxative) (Citrucel) 500 mg PO DAILY metoprolol tartrate 25 mg PO BID montelukast (Singulair) 10 mg PO DAILY naloxone 4 mg/actuation (Narcan) 4 mg intranasal Q2M PRN naratriptan take 1 tab at onset of headache; if no relief may repeat 1 tab after at least 4 hrs; max = 2 tabs/24 hrs PO omalizumab (Xolair) 150 mg subcut Q3W ondansetron 4 mg PO Q8H 3 days pantoprazole 40 mg PO DAILY [SHOWER CHAIR As directed] tramadol 50 mg PO BID travoprost 0.004% (Travatan Z) 1 drp ophthalmic (eye) QPM valacyclovir 500 mg PO BID 7 days zolpidem (Ambien) 10 mg PO BEDTIME PRN 30 days Tobacco use date assessed: 05/28/23 Dental Screening Dental Screen Date: 05/28/23 Did you have a dental visit in the last 12 months?: Yes Did you have a dental problem in the last 6 months where you did not have access to dental care?: No Was dental information given to patient?: Patient has dentist HPI F/Up sacroiliitis, fibromyalgia,OA, hyperlipidemia HPI Details Patient comes in today for her follow up visit She underwent kidney stone removal and stent placement with urology last week on 05/23/2023 Will be seeing urology later this week for follow up and possible stent removal She will also be undergoing some procedure under general anesthesia (possible IVP and ureteroscopy) to further evaluate her left ureteral stricture and left hydronephrosis - currently has only 45% of preserved left renal function with evidence of high-grade obstruction, likely due to the stricture States that she feels okay otherwise aside from her usual aches and pains She denies any fever, headaches or dizziness Denies any chest pains, no SOB No nausea/vomiting, no abdominal pain although the left side of her stomach feels sore, mostly over the area where the stent is No change in bowel habits noted Had her follow up labs done a couple of days ago - to discuss her results Would also like to get her flu shot today [facility] Medical History (Updated 05/29/23 @ 12:25 by Christ Goodwin MD) Osteopenia Sacroiliac joint pain Encounter for medication monitoring Palpitations Gastritis Fibromyalgia Hx of small bowel obstruction Abdominal pain Obesity (BMI 30-39.9) Bipolar depression Insomnia HLA-B27 spondyloarthropathy Osteoarthritis of multiple joints Vitamin D deficiency Migraine Allergic rhinitis Mild intermittent asthma without complication Pure hypercholesterolemia Primary osteoarthritis of right hip Lumbar spondylosis Surgical History S/P cystourethroscopy with dilation of urethral stricture (~07/21/20) History of esophagogastroduodenoscopy (EGD) Hx of unilateral oophorectomy Hx of colonoscopy Hx of cholecystectomy Hx of cystoscopy History of extraction of renal calculus Hx of removal of ovary History of carpal tunnel surgery History of hand surgery History of hysterectomy Family History Father Kidney problem Diabetes Mother Kidney malignancy Diabetes Brother Asthma Diabetes Social History Housing: House Alcohol intake: never Patient Tobacco Use Status: Never used Tobacco e-Cigarette/Vaping Use: Never Used Second Hand Smoke Exposure: No service: No Current occupational status: disabled Cognitive needs: No Hearing needs: No Vision needs: Yes Questionnaire PHQ-9 Over the last 2 weeks, how often have you been bothered by any of the following problems? 1. Little interest or pleasure in doing things: not at all 2. Feeling down, depressed, or hopeless: several days 3. Trouble falling or staying asleep, or sleeping too much: not at all 4. Feeling tired or having little energy: not at all 5. Poor appetite or overeating: not at all 6. Feeling bad about yourself - or that you are a failure or have let yourself or your family down: not at all 7. Trouble concentrating on things, such as reading the newspaper or watching television: not at all 8. Moving or speaking so slowly that other people could have noticed. Or the opposite - being so fidgety or restless that you have been moving around a lot more than usual: not at all 9. Thoughts that you would be better off or of hurting yourself in some way: not at all Total score: 1 Depression Screening Interpretation: Positive Depression Screening Follow-up: Existing condition and In treatment Depression Screening Done: Yes 08117 - PHQ-9 Billing: Yes Source: Developed by Drs. Khalif Rodriguez, Columba Bangura, Shyam Timmons and colleagues, with an educational jalil from [employer]. Thrive Questionnaire Date Thrive assessed: 05/28/23 I am a: Patient What is your living situation today?: I have a steady place to live Within the past 12 months, did the food you bought not last and you didn't have the money to get more?: Never true Within the past 12 months, did you worry whether your food would run out before you got money to buy more?: Never true Do you have trouble paying for medicines?: No Do you have trouble getting transportation to medical appointments?: No Do you have trouble paying your heating and electricity bill?: No Do you have trouble taking care of your child, family member or friend?: No Do you have trouble with day-to-day activities such as bathing, preparing meals, shopping, managing finances, etc.?: No Are you currently unemployed and looking for a job?: No Are you interested in more education?: No Please select the resources that you would like help with: None Currently or been in a relationship where the following occur: no concerns reported AUDIT C Alcohol Use Questionnaire (AUDIT-C) 1. How often do you have a drink containing alcohol?: Never 3. How often do you have six or more drinks on one occasion?: Never Total Score: 0 Score Reviewed/Action Taken: Yes ALEKS-7 AMB Questionnaire ALEKS-7 Date ALEKS - 7 assessed: 05/28/23 Feeling nervous, anxious, or on edge: 1 = Several days Not being able to stop or control worryin = Several days Worrying too much about different things: 0 = Not at all Trouble relaxin = Not at all Being so restless that it is hard to sit still: 0 = Not at all Becoming easily annoyed or irritable: 0 = Not at all Feeling afraid as if something awful might happen: 0 = Not at all Total ALEKS-7 score (0-4 normal; 5-9 mild; 10-14 moderate; 15-21 severe): 2 Source: Developed by Drs. Khalif Rodriguez, Columba Bangura, Shyam Timmons and colleagues, with an educational jalil from [employer]. Review of Systems Const Denies chills, Reports fatigue, Denies fever(s) and Denies headache(s) (occurring occasionally lately) ENT Denies dysphagia, Denies dizziness, Denies otalgia, Denies headache(s) (occurring occasionally lately), Reports neck pain (chronic), Denies odynophagia and Denies sore throat Card Denies chest pain, Reports palpitations (on and off, mostly occurring when she eats (?)) and Denies dyspnea Resp Denies chest congestion, Denies cough, Denies dyspnea and Denies wheezing GI Denies abdominal pain, Denies constipation, Denies dysphagia, Denies heartburn, Denies diarrhea, Denies nausea, Denies odynophagia and Denies vomiting Denies hematuria, Denies difficulty voiding, Denies nocturia and Denies dysuria Musc Reports back pain (chronic), Reports myalgias (diffuse), Reports arthralgias (multiple joints), Reports neck pain (chronic) and Reports stiffness Neuro Denies dizziness and Denies headache(s) (occurring occasionally lately) Psych Denies anxiety Endo Reports fatigue and Reports palpitations (on and off, mostly occurring when she eats (?)) Aller/Immun Denies wheezing Physical exam (Primary Care) Vital Signs: Last Vital Signs Pulse 85 05/28/23 15:12 BP 124/80 05/28/23 15:12 Pulse Ox 97 05/28/23 15:12 Oxygen Delivery Method Room Air 05/28/23 15:12 BMI result Body Mass Index 34.1 Tobacco/Smoking Status: Tobacco use Status Tobacco use date assessed 05/28/23 05/28/23 15:13 Patient Tobacco Use Status Never used Tobacco 05/28/23 15:13 e-Cigarette/Vaping Use Never Used 05/28/23 15:13 PHQ-9: PHQ-9 Score PHQ-9: Total score 1 05/28/23 16:08 Depression Screening Interpretation: Positive Depression Screening Follow-up: Existing condition and In treatment Thrive Assessment: Date of Thrive Assessment Date Thrive assessed 05/28/23 05/28/23 15:13 Currently or been in a relationship where the following occur: no concerns reported Const General: no acute distress and alert HENMT Other: (+) few cold sores on the upper lip Ears: TM's normal bilaterally and EAC's normal Throat: Yes posterior oropharynx normal and Yes tonsils normal Neck Neck: Yes no lymphadenopathy and Yes supple Lymphatic: no lymphadenopathy noted Resp Auscultation: clear to auscultation bilaterally, no crackles, no rales and no wheezes Cardio Rate: regular rate Rhythm: regular rhythm Heart sounds: no murmurs GI Palpation (GI): Soft to palpation and nontender Auscultation: normal bowel sounds General: Yes no CVA tenderness Back/Spine/Pelvis Back: no CVA tenderness Cervical Spine: Cervical spine tenderness Thoracic/Lumbar Spine: lumbar spinal tenderness Extrem General: Yes no clubbing, cyanosis or edema Office Procedures Flu Questionnaire Does the patient have a severe egg allergy?: No Does the patient have severe life threatening allergies?: No Does the patient have a fever or illness today?: No Has the patient ever had Guillain-Vidor Syndrome?: No Has the patient ever had any past reaction to a flu shot?: No Immunizations flu vacc [id number] 6mos up(PF) 60 mcg(15 mcgx4)/0.5 mL IM syringe Performing Provider: Christ Goodwin MD Performing Location: [facility] Administered by: Patricio Hughes on 05/28/23 15:41 Dose Route Admin Location Dispensed Lot Number Expiration Date NDC Transistor Tester 0.5 mL IM Left Deltoid 0.5 mL [id number] 02/03/24 [id number] [employer] VIS Given Date VIS Provided VIS Publication Date 05/28/23 Single Vaccine 21 Eligibility Eligibility Date Funding Source Not [facility] Eligible 05/28/23 Private Results Reviewed Results Reviewed: Laboratory Tests 05/26/23 05/26/23 10:30 10:35 WBC 10.6 Hgb 12.1 Hct 38.6 Plt Count 405 H Sodium 141 Potassium 4.1 Creatinine 0.75 Estimated GFR > 60 Fasting Glucose 97 Calcium 9.9 AST 12 ALT 24 Triglycerides 342 H Cholesterol 217 H LDL Cholesterol, Calc 96 HDL Cholesterol 53 Assessment and Plan Assessment & Plan (1) Palpitations: Code(s): R00.2 - Palpitations Plan: Continue Metoprolol 25 mg BID Extended Holter monitor (3 days) and echocardiogram done last year (February 2022) both came out normal Holter monitor showed baseline of normal sinus rhythm with average heart beat of 77 beats per minute with no significant pauses or bradycardia noted. There was a total of 4322 PVCs accounting for 1.32% of total beats but no patient reported events noted Patient states that her palpitations have not been occurring as often recently Was seen by cardiology a few months ago and was supposedly reassured that her symptoms are primarily from her PVCs and she has no other abnormal cardiac issues or findings Have recommended weight loss and also low dose Metoprolol 25 mg BID, which she is currently still on and appears to be doing well on the medication so far (2) Pure hypercholesterolemia: Code(s): E78.00 - Pure hypercholesterolemia, unspecified Plan: Results of her labs done a couple of days ago reviewed and discussed with patient - cautioned that her serum TG level has increased significantly from previous Reinforced low cholesterol diet; patient admits that she has been eating a lot of watermelon over the summer Discussed that her increased serum TG then is likely due to hyperglycemia brought on by her recent watermelon diet - cautioned that watermelons contain a lot of sugar and eating too much of them is also not advisable Continue Atorvastatin 20 mg QD for now Will recheck her labs and fasting lipids in 3 to 4 months for follow-up (3) Renal calculi: Code(s): N20.0 - Calculus of kidney Plan: Is S/P kidney stone removal and stent placement with urology last week on 05/23/2023 Will be seeing urology later this week for follow up and possible stent removal (4) Ureteral stricture, left: Code(s): N13.5 - Crossing vessel and stricture of ureter without hydronephrosis Plan: She currently appears to only have about 45% of preserved left renal function with evidence of high-grade obstruction, likely due to the left ureteral stricture She will also be undergoing some procedure under general anesthesia (possible IVP and ureteroscopy)with urology to further evaluate her left ureteral stricture and left hydronephrosis Follow up with urology as scheduled (5) Mild intermittent asthma without complication: Code(s): J45.20 - Mild intermittent asthma, uncomplicated Plan: Stable -? PFTs done last year came back normal Continue Flovent HFA 220 mg 1 puff twice a day, Albuterol HFA 2 puffs 4 times a day as needed and Montelukast 10 mg 1 tablet QD (6) Migraine: Code(s): G43.909 - Migraine, unspecified, not intractable, without status migrainosus Qualifiers: Intractability: not intractable Migraine type: unspecified Status migrainosus presence: without status migrainosus Qualified Code(s): G43.909 - Migraine, unspecified, not intractable, without status migrainosus Plan: Stable lately Reinforced avoidance of migraine triggers Continue Narariptan 2.5 mg once a day as needed and Vitamin B2 tablets 100 mg 2 times a day for headache prophylaxis Follow-up with [facility] as scheduled (7) Allergic rhinitis: Code(s): J30.9 - Allergic rhinitis, unspecified Qualifiers: Allergic rhinitis seasonality: unspecified Allergic rhinitis trigger: unspecified Qualified Code(s): J30.9 - Allergic rhinitis, unspecified Plan: Continues to receive immunotherapy (Xolair) from her knot borer - to follow-up as scheduled (8) Vitamin D deficiency: Code(s): E55.9 - Vitamin D deficiency, unspecified Plan: Continue Vitamin D3 2000 units QD (9) HLA-B27 spondyloarthropathy: Code(s): M47.899 - Other spondylosis, site unspecified Plan: Reinforced activity and weight-lifting restrictions Continue Gabapentin 800 mg TID, Duloxetine 60 mg QD and Sulfasalazine 500 gm 2 tablets every 12 hours (has taken Humira in the past with poor response) Follow-up with rheumatology and with [facility] [facility] [place] Patient underwent bilateral diagnostic L3, L4, DRL5, MBB with Dr. Thomas on 05/03/2021 - she reportedly experienced significant pain relief and was then scheduled for bilateral L3 L4 DR L5 MBB RFA with sedation and flouroscopy but this was denied by her insurance Had a trial of SI joint injection with pain management in February 2023 with good results (10) Osteoarthritis of multiple joints: Code(s): M15.9 - Polyosteoarthritis, unspecified Qualifiers: Osteoarthritis type: unspecified Qualified Code(s): M15.9 - Polyosteoarthritis, unspecified Plan: Especially involving the right hip and both hands Continue Nabumetone 750 mg BID PRN Follow up with rheumatology as scheduled (11) Osteopenia: Code(s): M85.80 - Other specified disorders of bone density and structure, unspecified site Qualifiers: Osteopenia location: lumbar spine Qualified Code(s): M85.88 - Other specified disorders of bone density and structure, other site Plan: She had a recent BASELINE BMD done on 03/30/2023, which revealed (+) osteopenia based on the lowest T-score value of -1.8 in the lumbar spine Her FRAX score is 4.1% She is encouraged to continue daily Vitamin D and Calcium supplements and to try to exercise and stay as active as she can regularly Will continue to monitor her BMD every 2 to 3 years (12) Fibromyalgia: Code(s): M79.7 - Fibromyalgia Plan: Encouraged again to try to stay active and exercise regularly to help manage her fibromyalgia symptoms better Continue Gabapentin 800 mg TID and Duloxetine 60 mg QD (13) Insomnia: Code(s): G47.00 - Insomnia, unspecified Qualifiers: Insomnia type: unspecified Qualified Code(s): G47.00 - Insomnia, unspecified Plan: Sleep hygiene reinforced Continue Zolpidem 10 mg once a day at bedtime as needed (14) Bipolar depression: Code(s): F31.9 - Bipolar disorder, unspecified Plan: Continue Clonazepam 1 mg twice a day as needed and Citalopram 10 mg once a day Follow-up with Psychiatry as scheduled - has been seeing Juan C Garcia of [facility] since 01/11/2022 (15) Obesity (BMI 30-39.9): Code(s): E66.9 - Obesity, unspecified Plan: Reinforced diet/exercise as tolerated/lose weight Plan Per request, flu vaccine given today Follow up in 4 months Orders: Orders Comprehensive [place]. Panel Fast 4 Months E78.00 - Pure hypercholesterolemia, unspecified Lipid Panel 4 Months E78.00 - Pure hypercholesterolemia, unspecified Hemoglobin A1c 4 Months R73.01 - Impaired fasting glucose TSH reflex Free T4 4 Months E78.00 - Pure hypercholesterolemia, unspecified Influenza [id number] Immunization 05/28/23 Z23 - Encounter for immunization Complete Blood Count Auto Diff 4 Months I10 - Essential (primary) hypertension UA CC w/rflx Micro + Cult 4 Months R30.0 - Dysuria Vitamin D 25-OH Total 4 Months E55.9 - Vitamin D deficiency, unspecified Medications: Refilled fluticasone propionate 50 mcg/actuation 1 spray intranasal DAILY 48 mL 1RF Coding Level of Care Code Est Pt Level 4 (66250) Diagnoses Palpitations R00.2 Pure hypercholesterolemia E78.00 Renal calculi N20.0 Ureteral stricture, left N13.5 Mild intermittent asthma without complication J45.20 Migraine without status migrainosus, not intractable, unspecified migraine type G43.909 Intractability: not intractable Migraine type: unspecified Status migrainosus presence: without status migrainosus Allergic rhinitis, unspecified seasonality, unspecified trigger J30.9 Allergic rhinitis seasonality: unspecified Allergic rhinitis trigger: unspecified Vitamin D deficiency E55.9 HLA-B27 spondyloarthropathy M47.899 Osteoarthritis of multiple joints, unspecified osteoarthritis type M15.9 Osteoarthritis type: unspecified Osteopenia of lumbar spine M85.88 Osteopenia location: lumbar spine Fibromyalgia M79.7 Insomnia, unspecified type G47.00 Insomnia type: unspecified Bipolar depression F31.9 Obesity (BMI 30-39.9) E66.9
== END 2023-05-28 16:24 | disposition home or self-care (01) ==
PROVIDERS: PCP Internal Medicine; Visit Provider Internal Medicine
DX: Z23 Encounter for immunization (principal)
CPT/HCPCS: 90471; 90686; 99214

== ENCOUNTER 2023-06-11 14:49 | Outpatient (AMB) | payer OTHER, SELFPAY ==
--- NOTE | 2023-06-11 14:54 | A.OFFVIS_ITS ---
Intake Vital Signs 06/11/23 14:55 Height 5 ft 3 in Weight 192 lb BMI 34.0 Intake Visit Reasons: Newprob-Unilateral primary OA, right hip Intake Note: Yanci is a 53 year old female who presents today for a new problem visit with complants of right hip pain. Pateint reports that she is having significant hip pain that interferes with AODL and would like to discuss treatment options as she has tried and failed intrarticular injections with Pain mgmt. Allergies Penicillins [PENICILLINS] Allergy (Severe, Verified 05/28/23 16:06) HIVES Iodinated Contrast Media [IV CONTRAST] Allergy (Intermediate, Verified 05/28/23 16:06) HIVES peanut [PEANUTS] Allergy (Intermediate, Verified 05/28/23 16:06) HIVES shellfish derived [SHELLFISH DERIVED] Allergy (Intermediate, Verified 05/28/23 16:06) HIVES cat dander Allergy (Mild, Verified 05/28/23 16:06) unknown dog dander Allergy (Mild, Verified 05/28/23 16:06) unknown pollen extracts Allergy (Mild, Verified 05/28/23 16:06) runny nose, itchy eyes triamcinolone Allergy (Verified 05/28/23 16:06) Unknown HPI Newprob-Unilateral primary OA, right hip HPI Details Yanci is a 53 year old woman who presents to discuss her right hip OA. She complains of pain with weight-bearing activities, worse with prolonged walking or using stairs. She says she can walk ~10 minutes before she develops pain in her lower back & hip. She feels pain in her lower back, lateral thigh, and her right groin. She has been seen by Pain Management in the past for both hip joint and SI joint injections, with relief. Her last hip injection was on 01/25/23. She is hesitant to discuss surgery. She has Fibromyalgia and follows with Rheumatology. [facility] Medical History (Updated 05/29/23 @ 12:25 by Christ Goodwin MD) Osteopenia Sacroiliac joint pain Encounter for medication monitoring Palpitations Gastritis Fibromyalgia Hx of small bowel obstruction Abdominal pain Obesity (BMI 30-39.9) Bipolar depression Insomnia HLA-B27 spondyloarthropathy Osteoarthritis of multiple joints Vitamin D deficiency Migraine Allergic rhinitis Mild intermittent asthma without complication Pure hypercholesterolemia Primary osteoarthritis of right hip Lumbar spondylosis Surgical History S/P cystourethroscopy with dilation of urethral stricture (~07/21/20) History of esophagogastroduodenoscopy (EGD) Hx of unilateral oophorectomy Hx of colonoscopy Hx of cholecystectomy Hx of cystoscopy History of extraction of renal calculus Hx of removal of ovary History of carpal tunnel surgery History of hand surgery History of hysterectomy Family History Father Kidney problem Diabetes Mother Kidney malignancy Diabetes Brother Asthma Diabetes Social History Housing: House Alcohol intake: never Patient Tobacco Use Status: Never used Tobacco e-Cigarette/Vaping Use: Never Used Second Hand Smoke Exposure: No service: No Current occupational status: disabled Cognitive needs: No Hearing needs: No Vision needs: Yes Review of Systems Const All systems reviewed & are unremarkable except as noted in HPI and below Physical Exam Vital Signs: BMI result Body Mass Index 34.0 Const General: no acute distress, alert and awake Orientation/consciousness: patient oriented x3 HEENT Head: Yes normocephalic and Yes atraumatic Eyes EOM: EOMs intact bilaterally Resp Effort & Inspection: normal respiratory effort and able to speak in complete sentences Cardio Jugular venous distension: no JVD Skin General skin exam: turgor normal Rashes: no rashes Neuro General: patient oriented x3 Extrem Other: Right Hip: Right hip with + Stinchfield +Impingement + Trendelenberg gait Psych Appearance: grossly normal Affect: normal affect Attitude: cooperative Results Reviewed Results Reviewed: I personally reviewed relevant radiographs severe right hip osteoarthritis Assessment & Plan Assessment & Plan (1) Osteoarthritis of right hip: Code(s): M16.11 - Unilateral primary osteoarthritis, right hip Plan: This is a 53 year old woman with severe right hip OA. She has pain with weight- bearing activities, worse with prolonged ambulation. She cannot ambulate >10 minutes without pain, feels limited in her ADLs, and that her QOL is diminished. She has a hx of relief from hip injections done by Pain Management, her most recent was on 01/25/23. I discussed her diagnosis and treatment options. She is young but has severe OA and her QOL is diminished. She has failed conservative treatment and I recommend right CHRISTEL. I discussed the risks benefits and alternatives including but not limited to the risk of pain, infection, stiffness, need for further surgery as well as potential medical complications such as blood clots, pulmonary embolism and cardiac complications. SHe would like to proceed forward. We will begin the pre operative clearance process. (2) Fibromyalgia: Code(s): M79.7 - Fibromyalgia (3) Bipolar depression: Code(s): F31.9 - Bipolar disorder, unspecified (4) Right sciatic nerve pain: Code(s): M54.31 - Sciatica, right side Plan Scribed for Simone Zepeda MD by Hank Mcdowell, clinical medical transcriptionist, on 06/11/23 at 3:05 PM, EST. Coding Level of Care Code Est Pt Level 4 (79725) Diagnoses Osteoarthritis of right hip M16.11 Fibromyalgia M79.7 Bipolar depression F31.9 Right sciatic nerve pain M54.31
[2023-06-11 14:55] VITALS: BMI 34.0
== END 2023-06-11 16:00 | disposition home or self-care (01) ==
PROVIDERS: PCP Internal Medicine; Visit Provider Orthopaedic Surgery
DX: M16.11 Unilateral primary osteoarthritis, right hip (principal); M79.7 Fibromyalgia; M54.31 Sciatica, right side; F31.9 Bipolar disorder, unspecified
CPT/HCPCS: 99214

== ENCOUNTER → 2023-06-11 14:49 | Outpatient (BNVA) | payer OTHER, SELFPAY | PROVIDERS: PCP Internal Medicine; Visit Provider Orthopaedic Surgery | DX: M16.11 Unilateral primary osteoarthritis, right hip (principal); M79.7 Fibromyalgia; M54.31 Sciatica, right side; F31.9 Bipolar disorder, unspecified | CPT/HCPCS: 99212 ==

== ENCOUNTER 2023-07-23 15:47 | Outpatient (AMB) | payer OTHER, SELFPAY ==
[2023-07-23 15:48] VITALS: BP 126/70; PULSE 81; O2SAT 97; BMI 34.2
--- NOTE | 2023-07-23 15:48 | MHC.PC.OV ---
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: No Accompanied by: Self / Same As Patient Allergies Penicillins [PENICILLINS] Allergy (Severe, Verified 07/23/23 16:20) HIVES Iodinated Contrast Media [IV CONTRAST] Allergy (Intermediate, Verified 07/23/23 16:20) HIVES peanut [PEANUTS] Allergy (Intermediate, Verified 07/23/23 16:20) HIVES shellfish derived [SHELLFISH DERIVED] Allergy (Intermediate, Verified 07/23/23 16:20) HIVES cat dander Allergy (Mild, Verified 07/23/23 16:20) unknown dog dander Allergy (Mild, Verified 07/23/23 16:20) unknown pollen extracts Allergy (Mild, Verified 07/23/23 16:20) runny nose, itchy eyes triamcinolone Allergy (Verified 07/23/23 16:20) Unknown Medication List - Last Reconciled 07/23/23 by Christ Goodwin MD albuterol sulfate 90 mcg/actuation 2 puffs inhalation Q4-6H PRN atorvastatin 20 mg PO DAILY 90 days baclofen 20 mg PO BID 30 days benzonatate 100 - 200 mg PO bimatoprost 0.01% (Lumigan) 1 drp ophthalmic (eye) BEDTIME bisacodyl (Dulcolax (bisacodyl)) 10 mg (2 x 5 mg) PO BEDTIME bupropion HCl 150 mg PO QAM cetirizine (Zyrtec) 10 mg PO DAILY cholecalciferol (vitamin D3) 50 mcg PO DAILY clonazepam (Klonopin) 1 mg PO BID cyclosporine 0.05% (Restasis) 1 drp ophthalmic (eye) Q12H dorzolamide-timolol 22.3-6.8 mg/mL 1 drp ophthalmic (eye) BID duloxetine 60 mg PO DAILY epinephrine IM famotidine 20 mg PO BEDTIME 90 days fluticasone propionate 50 mcg/actuation 1 spray intranasal DAILY fluticasone propionate 220 mcg/actuation (Flovent HFA) 1 puff inhalation BID gabapentin 800 mg PO Q8H 30 days ymzaog-rktcbanh-uprkvqn 6,000-19,000 -30,000 unit (Creon) 1 cap PO .qid ac methylcellulose (laxative) (Citrucel) 500 mg PO DAILY metoprolol tartrate 25 mg PO BID montelukast (Singulair) 10 mg PO DAILY naloxone 4 mg/actuation (Narcan) 4 mg intranasal Q2M PRN naratriptan take 1 tab at onset of headache; if no relief may repeat 1 tab after at least 4 hrs; max = 2 tabs/24 hrs PO omalizumab (Xolair) 150 mg subcut Q3W ondansetron 4 mg PO Q8H 3 days pantoprazole 40 mg PO DAILY [SHOWER CHAIR As directed] tramadol 50 mg PO BID travoprost 0.004% (Travatan Z) 1 drp ophthalmic (eye) QPM valacyclovir 500 mg PO BID 7 days zolpidem (Ambien) 10 mg PO BEDTIME PRN 30 days Tobacco use date assessed: 07/23/23 Dental Screening Dental Screen Date: 07/23/23 Did you have a dental visit in the last 12 months?: Yes Did you have a dental problem in the last 6 months where you did not have access to dental care?: No Was dental information given to patient?: Patient has dentist HPI Right total hip arthroplasty 08/15/23 HPI Details Patient comes in today at the request of Dr. Simone Zepeda for a preoperative medical examination for clearance for surgery She is scheduled for a total right hip arthroplasty under general anesthesia with Dr. Zepeda on 08/15/2023 Patient states that she has been experiencing increasing right hip pain for a while now and she is at a point where she can hardly move around or walk for more than 5 to 10 minutes without stopping due to her increasing right hip pain States that her mobility has declined significantly over the past year She has been to pain management and physical therapy and so far, none of them have helped much States that she used to get cortisone injections into her hip with some relief for a while but even that is no longer an option She has tried taking 2 tablets of her Tramadol at a time with no relief; Baclofen also does not do anything anymore for her lately States that she still has on and off palpitations but these are not associated with any headaches, dizziness or lightheadedness, chest pains or SOB She has undergone cardiac workups for her palpitations over the past couple of years and was advised that her symptoms are primarily due to PVCs and that all of her other work ups, including echocardiogram and Holter monitoring, all came back normal She denies any headaches or dizziness Denies any chest pains, no increased SOB No nausea/vomiting, no abdominal pain No change in bowel habits noted PFSH Medical History Osteopenia Sacroiliac joint pain Encounter for medication monitoring Palpitations Gastritis Fibromyalgia Hx of small bowel obstruction Abdominal pain Obesity (BMI 30-39.9) Bipolar depression Insomnia HLA-B27 spondyloarthropathy Osteoarthritis of multiple joints Vitamin D deficiency Migraine Allergic rhinitis Mild intermittent asthma without complication Pure hypercholesterolemia Primary osteoarthritis of right hip Lumbar spondylosis Surgical History S/P cystourethroscopy with dilation of urethral stricture (~07/21/20) History of esophagogastroduodenoscopy (EGD) Hx of unilateral oophorectomy Hx of colonoscopy Hx of cholecystectomy Hx of cystoscopy History of extraction of renal calculus Hx of removal of ovary History of carpal tunnel surgery History of hand surgery History of hysterectomy Family History Father Kidney problem Diabetes Mother Kidney malignancy Diabetes Brother Asthma Diabetes Social History Housing: House Alcohol intake: never Patient Tobacco Use Status: Never used Tobacco e-Cigarette/Vaping Use: Never Used Second Hand Smoke Exposure: No service: No Current occupational status: disabled Cognitive needs: No Hearing needs: No Vision needs: Yes Questionnaire PHQ-9 Over the last 2 weeks, how often have you been bothered by any of the following problems? 1. Little interest or pleasure in doing things: not at all 2. Feeling down, depressed, or hopeless: several days 3. Trouble falling or staying asleep, or sleeping too much: not at all 4. Feeling tired or having little energy: not at all 5. Poor appetite or overeating: not at all 6. Feeling bad about yourself - or that you are a failure or have let yourself or your family down: not at all 7. Trouble concentrating on things, such as reading the newspaper or watching television: not at all 8. Moving or speaking so slowly that other people could have noticed. Or the opposite - being so fidgety or restless that you have been moving around a lot more than usual: not at all 9. Thoughts that you would be better off or of hurting yourself in some way: not at all Total score: 1 Depression Screening Interpretation: Positive Depression Screening Follow-up: Existing condition and In treatment Depression Screening Done: Yes 12814 - PHQ-9 Billing: Yes Source: Developed by Drs. Khalif Rodriguez, Columba Bangura, Shyam Timmons and colleagues, with an educational jalil from [employer]. Thrive Questionnaire Date Thrive assessed: 07/23/23 I am a: Patient What is your living situation today?: I have a steady place to live Within the past 12 months, did the food you bought not last and you didn't have the money to get more?: Never true Within the past 12 months, did you worry whether your food would run out before you got money to buy more?: Never true Do you have trouble paying for medicines?: No Do you have trouble getting transportation to medical appointments?: No Do you have trouble paying your heating and electricity bill?: No Do you have trouble taking care of your child, family member or friend?: No Do you have trouble with day-to-day activities such as bathing, preparing meals, shopping, managing finances, etc.?: No Are you currently unemployed and looking for a job?: No Are you interested in more education?: No Please select the resources that you would like help with: None Currently or been in a relationship where the following occur: no concerns reported AUDIT C Alcohol Use Questionnaire (AUDIT-C) 1. How often do you have a drink containing alcohol?: Never 3. How often do you have six or more drinks on one occasion?: Never Total Score: 0 Score Reviewed/Action Taken: Yes ALEKS-7 AMB Questionnaire ALEKS-7 Date ALEKS - 7 assessed: 07/23/23 Feeling nervous, anxious, or on edge: 1 = Several days Not being able to stop or control worryin = Several days Worrying too much about different things: 0 = Not at all Trouble relaxin = Not at all Being so restless that it is hard to sit still: 0 = Not at all Becoming easily annoyed or irritable: 0 = Not at all Feeling afraid as if something awful might happen: 0 = Not at all Total ALEKS-7 score (0-4 normal; 5-9 mild; 10-14 moderate; 15-21 severe): 2 Source: Developed by Drs. Khalif Rodriguez, Columba Bangura, Shyam Timmons and colleagues, with an educational jalil from [employer]. Review of Systems Const Denies chills, Reports fatigue, Denies fever(s) and Denies headache(s) ENT Denies dysphagia, Denies dizziness, Denies otalgia, Denies headache(s), Reports neck pain (chronic), Denies odynophagia and Denies sore throat Card Denies chest pain, Reports palpitations (on and off) and Denies dyspnea Resp Denies chest congestion, Denies cough, Denies dyspnea and Denies wheezing GI Denies abdominal pain, Denies constipation, Denies dysphagia, Denies heartburn, Denies diarrhea, Denies nausea, Denies odynophagia and Denies vomiting Denies hematuria, Denies difficulty voiding, Denies nocturia and Denies dysuria Musc Reports back pain (chronic), Reports myalgias (diffuse), Reports arthralgias (multiple joints but increasing over the right hip), Reports neck pain (chronic) and Reports stiffness Skin/Breast Denies rash Neuro Denies dizziness and Denies headache(s) Psych Denies anxiety Endo Reports fatigue and Reports palpitations (on and off) Aller/Immun Denies wheezing Physical exam (Primary Care) Vital Signs: Last Vital Signs Pulse 81 07/23/23 15:48 BP 126/70 07/23/23 15:48 Pulse Ox 97 07/23/23 15:48 Oxygen Delivery Method Room Air 07/23/23 15:48 BMI result Body Mass Index 34.2 Tobacco/Smoking Status: Tobacco use Status Tobacco use date assessed 07/23/23 07/23/23 15:50 Patient Tobacco Use Status Never used Tobacco 07/23/23 15:50 e-Cigarette/Vaping Use Never Used 07/23/23 15:50 PHQ-9: PHQ-9 Score PHQ-9: Total score 1 07/23/23 16:56 Depression Screening Interpretation: Positive Depression Screening Follow-up: Existing condition and In treatment Thrive Assessment: Date of Thrive Assessment Date Thrive assessed 07/23/23 07/23/23 15:50 Currently or been in a relationship where the following occur: no concerns reported Const General: no acute distress and alert HENMT Throat: Yes posterior oropharynx normal and Yes tonsils normal Neck Neck: Yes no lymphadenopathy and Yes supple Lymphatic: no lymphadenopathy noted Resp Auscultation: clear to auscultation bilaterally, no crackles, no rales and no wheezes Cardio Rate: regular rate Rhythm: regular rhythm Heart sounds: no murmurs GI Palpation (GI): Soft to palpation and nontender Auscultation: normal bowel sounds General: Yes no CVA tenderness Back/Spine/Pelvis Back: no CVA tenderness Cervical Spine: Cervical spine tenderness Thoracic/Lumbar Spine: lumbar spinal tenderness Extrem General: Yes no clubbing, cyanosis or edema Right lower extremity: hip/thigh Details: tenderness Location: of the hip and abnormal ROM (increased pain with weight-bearing and active ROM) Assessment and Plan Assessment & Plan (1) Preoperative examination: Code(s): Z01.818 - Encounter for other preprocedural examination Plan: Patient presents with acceptable risks for planned intermediate cardiac-risk procedure Will send her for some labs and EKG to complete her evaluation (2) Osteoarthritis of right hip: Code(s): M16.11 - Unilateral primary osteoarthritis, right hip Qualifiers: Osteoarthritis type: primary Qualified Code(s): M16.11 - Unilateral primary osteoarthritis, right hip Plan: She is scheduled for a total right hip arthroplasty under general anesthesia with Dr. Simone Zepeda at [facility] on 08/15/2023 (3) Palpitations: Code(s): R00.2 - Palpitations Plan: Previous cardiology work-ups done have revealed these to be primarily PVC's Extended (3-days) Holter monitor and echocardiogram done last year (February 2022) both came out mostly normal Holter monitor showed baseline of normal sinus rhythm with average heart beat of 77 beats per minute with no significant pauses or bradycardia noted. There was a total of 4322 PVCs accounting for 1.32% of total beats but no patient reported events noted She also had myocardial perfusion studies done back in 2019 that came out completely normal Was seen by cardiology most recently a few months ago and was supposedly reassured that her symptoms are primarily from her PVCs and she has no other abnormal cardiac issues or findings Have again explained to patient that PVCs are not dangerous and she has a fairly low disease burden Have recommended weight loss and also low dose Metoprolol 25 mg BID, which she is currently still on and appears to be doing well on the medication so far Patient states that her palpitations have not been occurring as often recently Continue Metoprolol 25 mg BID (4) Pure hypercholesterolemia: Code(s): E78.00 - Pure hypercholesterolemia, unspecified Plan: Reinforced low cholesterol diet Continue Atorvastatin 20 mg QD (5) Renal calculi: Code(s): N20.0 - Calculus of kidney Plan: S/P kidney stone removal and stent placement with urology on 05/23/2023 Her stent has been removed since She has been advised that she may benefit from potassium citrate management in the future Follow up with urology as scheduled (6) Ureteral stricture, left: Code(s): N13.5 - Crossing vessel and stricture of ureter without hydronephrosis Plan: She currently appears to only have about 45% of preserved left renal function with evidence of high-grade obstruction, likely due to the left ureteral stricture She underwent a diagnostic left RPG recently that revealed a widely patent stricture extending from the ureteral orifice to the sacral level with easy passage of contrast in the kidney - is negative for high-grade obstruction Follow up with urology as scheduled (7) Mild intermittent asthma without complication: Code(s): J45.20 - Mild intermittent asthma, uncomplicated Plan: Stable -? PFTs done last year came back normal Continue Flovent HFA 220 mg 1 puff twice a day, Albuterol HFA 2 puffs 4 times a day as needed and Montelukast 10 mg 1 tablet QD (8) Migraine: Code(s): G43.909 - Migraine, unspecified, not intractable, without status migrainosus Qualifiers: Migraine type: unspecified Status migrainosus presence: without status migrainosus Intractability: not intractable Qualified Code(s): G43.909 - Migraine, unspecified, not intractable, without status migrainosus Plan: Stable lately Reinforced avoidance of migraine triggers Continue Narariptan 2.5 mg once a day as needed and Vitamin B2 tablets 100 mg 2 times a day for headache prophylaxis [facility] as scheduled (9) Allergic rhinitis: Code(s): J30.9 - Allergic rhinitis, unspecified Qualifiers: Allergic rhinitis trigger: unspecified Allergic rhinitis seasonality: unspecified Qualified Code(s): J30.9 - Allergic rhinitis, unspecified Plan: Continues to receive immunotherapy (Xolair) 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 Thomas on 05/03/2021 - she reportedly experienced significant pain relief and was then scheduled for bilateral L3 L4 DR L5 MBB RFA with sedation and flouroscopy but this was denied by her insurance Had a trial of SI joint injection with pain management in February 2023 with good results (12) Osteoarthritis of multiple joints: Code(s): M15.9 - Polyosteoarthritis, unspecified Qualifiers: Osteoarthritis type: unspecified Qualified Code(s): M15.9 - Polyosteoarthritis, unspecified Plan: Especially involving the right hip and both hands - will be going for right hip arthroplasty next month Continue Nabumetone 750 mg BID PRN Follow up with rheumatology as scheduled (13) Osteopenia: Code(s): M85.80 - Other specified disorders of bone density and structure, unspecified site Qualifiers: Osteopenia location: lumbar spine Qualified Code(s): M85.88 - Other specified disorders of bone density and structure, other site Plan: She had a recent BASELINE BMD done on 03/30/2023, which revealed (+) osteopenia based on the lowest T-score value of -1.8 in the lumbar spine Her FRAX score is 4.1% She is encouraged to continue daily Vitamin D and Calcium supplements and to try to exercise and stay as active as she can regularly Will continue to monitor her BMD every 2 to 3 years (14) Fibromyalgia: Code(s): M79.7 - Fibromyalgia Plan: Encouraged again to try to stay active and exercise regularly to help manage her fibromyalgia symptoms better Continue Gabapentin 800 mg TID and Duloxetine 60 mg QD (15) Insomnia: Code(s): G47.00 - Insomnia, unspecified Qualifiers: Insomnia type: unspecified Qualified Code(s): G47.00 - Insomnia, unspecified Plan: Sleep hygiene reinforced Continue Zolpidem 10 mg once a day at bedtime as needed (16) Bipolar depression: Code(s): F31.9 - Bipolar disorder, unspecified Plan: Continue Clonazepam 1 mg twice a day as needed and Citalopram 10 mg once a day Follow-up with Psychiatry as scheduled - has been seeing Juan C Garcia of [facility] since 01/11/2022 (17) Obesity (BMI 30-39.9): Code(s): E66.9 - Obesity, unspecified Plan: Reinforced diet/exercise as tolerated/lose weight Plan Patient presently appears medically optimized for surgery; final clearance for surgery will be provided once we receive the results of her preop labs and EKG to complete her evaluation Follow up as scheduled in September 2023 Orders: Orders Complete Blood Count Auto Diff 07/23/23 M16.11 - Unilateral primary osteoarthritis, right hip, Z01.818 - Encounter for other preprocedural examination Comprehensive Met. Panel 07/23/23 M16.11 - Unilateral primary osteoarthritis, right hip, Z01.818 - Encounter for other preprocedural examination UA CC w/rflx Micro + Cult 07/23/23 M16.11 - Unilateral primary osteoarthritis, right hip, R30.0 - Dysuria, Z01.818 - Encounter for other preprocedural examination Prothrombin Time INR 07/23/23 M16.11 - Unilateral primary osteoarthritis, right hip, Z01.818 - Encounter for other preprocedural examination, Z79.01 - nursing home (current) use of anticoagulants ECG 12 lead EKG 07/23/23 Z01.818 - Encounter for other preprocedural examination Partial Thromboplastin Time 07/23/23 M16.11 - Unilateral primary osteoarthritis, right hip, Z01.818 - Encounter for other preprocedural examination Coding Level of Care Code Est Pt Level 4 (17496) Diagnoses Preoperative examination Z01.818 Primary osteoarthritis of right hip M16.11 Osteoarthritis type: primary Palpitations R00.2 Pure hypercholesterolemia E78.00 Renal calculi N20.0 Ureteral stricture, left N13.5 Mild intermittent asthma without complication J45.20 Migraine without status migrainosus, not intractable, unspecified migraine type G43.909 Migraine type: unspecified Status migrainosus presence: without status migrainosus Intractability: not intractable Allergic rhinitis, unspecified seasonality, unspecified trigger J30.9 Allergic rhinitis trigger: unspecified Allergic rhinitis seasonality: unspecified Vitamin D deficiency E55.9 HLA-B27 spondyloarthropathy M47.899 Osteoarthritis of multiple joints, unspecified osteoarthritis type M15.9 Osteoarthritis type: unspecified Osteopenia of lumbar spine M85.88 Osteopenia location: lumbar spine Fibromyalgia M79.7 Insomnia, unspecified type G47.00 Insomnia type: unspecified Bipolar depression F31.9 Obesity (BMI 30-39.9) E66.9
== END 2023-07-23 16:35 | disposition home or self-care (01) ==
PROVIDERS: PCP Internal Medicine; Visit Provider Internal Medicine
DX: M16.11 Unilateral primary osteoarthritis, right hip (principal); F31.9 Bipolar disorder, unspecified; Z01.818 Encounter for other preprocedural examination; R00.2 Palpitations; E78.00 Pure hypercholesterolemia, unspecified; N20.0 Calculus of kidney; N13.5 Crossing vessel and stricture of ureter without hydronephrosis; J45.20 Mild intermittent asthma, uncomplicated; G43.909 Migraine, unspecified, not intractable, without status migrainosus; J30.9 Allergic rhinitis, unspecified; E55.9 Vitamin D deficiency, unspecified; E66.9 Obesity, unspecified
CPT/HCPCS: 99214

== ENCOUNTER → 2023-07-25 14:49 | Outpatient (BNV) | payer OTHER, SELFPAY | PROVIDERS: Absent Provider Internal Medicine; Admitting Provider Orthopaedic Surgery; PCP Internal Medicine; Visit Provider Internal Medicine Cardiovascular Disease | DX: Z01.810 Encounter for preprocedural cardiovascular examination (principal) | CPT/HCPCS: 93010 ==

== ENCOUNTER 2023-08-01 11:26 | Outpatient (AMB) | payer OTHER, SELFPAY ==
[2023-08-01 11:37] VITALS: BP 122/82; PULSE 77; TEMP 36.4; O2SAT 96; BMI 34.0
--- NOTE | 2023-08-01 11:37 | MHC.OFFVIS ---
Intake Vital Signs 08/01/23 11:37 Height 5 ft 3 in Weight 192 lb 0.362 oz BMI 34.0 BP 122/82 Blood Pressure Location Rt brachial Position Sitting Pulse 77 Pulse Source Pulse Oximeter Temp 97.6 F Temp Source Skin Pulse Oximetry (%) 96 Oxygen Delivery Method Room Air Intake Visit Reasons: OA/FM Intake Note: Patient last seen 03/26/23, presents today for follow up and test results. Requesting Tramadol refill. 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 Accompanied by: Self / Same As Patient Allergies Penicillins [PENICILLINS] Allergy (Severe, Verified 08/01/23 11:41) HIVES Iodinated Contrast Media [IV CONTRAST] Allergy (Intermediate, Verified 08/01/23 11:41) HIVES peanut [PEANUTS] Allergy (Intermediate, Verified 08/01/23 11:41) HIVES shellfish derived [SHELLFISH DERIVED] Allergy (Intermediate, Verified 08/01/23 11:41) HIVES cat dander Allergy (Mild, Verified 08/01/23 11:41) unknown dog dander Allergy (Mild, Verified 08/01/23 11:41) unknown pollen extracts Allergy (Mild, Verified 08/01/23 11:41) runny nose, itchy eyes triamcinolone Allergy (Verified 08/01/23 11:41) Unknown Medication List - Last Reconciled 08/01/23 by Huey Lou MD albuterol sulfate 90 mcg/actuation 2 puffs inhalation Q4-6H PRN atorvastatin 20 mg PO DAILY 90 days baclofen 20 mg PO BID 30 days benzonatate 100 - 200 mg PO bimatoprost 0.01% (Lumigan) 1 drp ophthalmic (eye) BEDTIME bisacodyl (Dulcolax (bisacodyl)) 10 mg (2 x 5 mg) PO BEDTIME bupropion HCl 150 mg PO QAM cetirizine (Zyrtec) 10 mg PO DAILY cholecalciferol (vitamin D3) 50 mcg PO DAILY clonazepam (Klonopin) 1 mg PO BID cyclosporine 0.05% (Restasis) 1 drp ophthalmic (eye) Q12H dorzolamide-timolol 22.3-6.8 mg/mL 1 drp ophthalmic (eye) BID duloxetine 60 mg PO DAILY epinephrine IM famotidine 20 mg PO BEDTIME 90 days fluticasone propionate 50 mcg/actuation 1 spray intranasal DAILY fluticasone propionate 220 mcg/actuation (Flovent HFA) 1 puff inhalation BID gabapentin 800 mg PO Q8H 30 days lxmtov-aztwrfwa-cjeajzq 6,000-19,000 -30,000 unit (Creon) 1 cap PO .qid ac methylcellulose (laxative) (Citrucel) 500 mg PO DAILY metoprolol tartrate 25 mg PO BID montelukast (Singulair) 10 mg PO DAILY naloxone 4 mg/actuation (Narcan) 4 mg intranasal Q2M PRN naratriptan take 1 tab at onset of headache; if no relief may repeat 1 tab after at least 4 hrs; max = 2 tabs/24 hrs PO omalizumab (Xolair) 150 mg subcut Q3W ondansetron 4 mg PO Q8H 3 days pantoprazole 40 mg PO DAILY [SHOWER CHAIR As directed] tramadol 50 mg PO BID travoprost 0.004% (Travatan Z) 1 drp ophthalmic (eye) QPM valacyclovir 500 mg PO BID 7 days zolpidem (Ambien) 10 mg PO BEDTIME PRN 30 days HPI HPI Comments History of Present Illness Details The patient returns for evaluation of her osteoarthritis and fibromyalgia. She again complains of pain in the right thigh, right groin, and buttock. This pain radiates down to the anterior right knee. There is also some low back pain and pain a little bit distal to the right knee as well. She has seen Orthopedics and they agree that surgical treatment would be appropriate so she has a hip replacement planned for August 15. Preoperative testing has been pursued. She remains on the tramadol 50 mg b.i.d. with questionable benefit, baclofen 20 b.i.d. p.r.n., bupropion, clonazepam, and duloxetine. She has some other pains in the neck, lower back, and hands but these are minimal compared to her hip pain. [facility] Medical History (Updated 08/01/23 @ 13:09 by Huey Lou MD) Osteopenia Sacroiliac joint pain Encounter for medication monitoring Palpitations Gastritis Fibromyalgia Hx of small bowel obstruction Abdominal pain Obesity (BMI 30-39.9) Bipolar depression Insomnia HLA-B27 spondyloarthropathy Osteoarthritis of multiple joints Vitamin D deficiency Migraine Allergic rhinitis Mild intermittent asthma without complication Pure hypercholesterolemia Primary osteoarthritis of right hip Lumbar spondylosis Surgical History S/P cystourethroscopy with dilation of urethral stricture (~07/21/20) History of esophagogastroduodenoscopy (EGD) Hx of unilateral oophorectomy Hx of colonoscopy Hx of cholecystectomy Hx of cystoscopy History of extraction of renal calculus Hx of removal of ovary History of carpal tunnel surgery History of hand surgery History of hysterectomy Family History Father Kidney problem Diabetes Mother Kidney malignancy Diabetes Brother Asthma Diabetes Social History Housing: House Alcohol intake: never Patient Tobacco Use Status: Never used Tobacco e-Cigarette/Vaping Use: Never Used Second Hand Smoke Exposure: No service: No Current occupational status: disabled Cognitive needs: No Hearing needs: No Vision needs: Yes Review of Systems Const Details: Low stamina. Negative for appetite change, weight change, fever, chills, malaise Eyes Details: Negative for vision change, dry eyes,headaches and dizziness Card Details: Negative chest pain, edema and syncope Resp Details: Negative for SOB, cough and wheezing GI Details: Negative indigestion/heartburn, nausea, abdominal pain, bowel changes, diarrhea, constipation and bloody stool. Loy/Lymph Details: Negative for excessive bruising or bleeding. Physical Exam Vital Signs: Last Vital Signs Temp 97.6 F 08/01/23 11:37 Pulse 77 08/01/23 11:37 BP 122/82 08/01/23 11:37 Pulse Ox 96 08/01/23 11:37 Oxygen Delivery Method Room Air 08/01/23 11:37 BMI result Body Mass Index 34.0 APPEARANCE: Patient in no acute distress EYES no redness, pupils equal and reactive to light, eyelids normal EXTREMITIES: No edema, no calf tenderness, normal peripheral pulses. JOINT EXAM: Cervical Spine:? Full range of motion with mild discomfort. There is no tenderness over the cervical spine.? Widespread diffuse tenderness to palpation of cervical spinal muscles. Thoracic Spine:? No scoliosis.? No tenderness on palpation. Lumbar Spine:? Alignment normal.? Full range of motion, pain with flexion and extension, tenderness to palpation of the lumbar spine and bilateral posterior buttocks.? Negative Virginia's test.? Normal occiput to wall test. Hands:? Normal pain-free range of motion without tenderness, swelling, increased warmth or erythema. Able to make a full fist and has a good rn gynecology strength. Wrists:? Normal pain-free range of motion without tenderness, swelling, increased warmth or erythema. Elbows:Normal pain-free range of motion without tenderness, swelling, increased warmth or erythema. Shoulders:?? Full range of motion with mild discomfort. This seems to be felt over the trapezius. There is some mild tenderness over the trapezius muscle and anterior shoulders but no adenopathy, abductor weakness, swelling, increased warmth or erythema. Hips:? Right: Moderate buttock and groin pain with flexion at 100 degrees, any internal rotation, or the extremes of abduction or external rotation. External rotation in abduction or probably limited to only about 10 degrees. The groin pain is more reproducible with rotation than any other movements. Left: Full range of motion with some lumbar pain at the extremes of internal or external rotation. Hip bursa: Mild bilateral trochanteric tenderness. Knees:?? Normal pain-free range of motion with slight patellofemoral crepitus but no effusion, tenderness, swelling, increased warmth or erythema.? Ankles:? Normal pain-free range of motion without tenderness, swelling, increased warmth or erythema. Feet:? Normal pain-free range of motion without tenderness, swelling, increased warmth or erythema. Tender points: Mild tenderness to digital palpation at the occiput, trapezius, second rib, lateral epicondyle, knees, greater trochanter and gluteal area bilaterally. ? Results Reviewed Results Reviewed: [facility] [address] [place] [address] Mammography Report Signed Patient: Yanci Toney MR#: [id number] : 1970 Acct:[id number] Age/Sex: 53 / F ADM Date: 03/30/23 Ordering Physician: Huey Lou MD Date of Service: 03/30/23 Procedure(s): XR DEXA axial skeleton Accession Number(s): [id number] cc: Huey Lou MD~ EXAMINATION: BONE DENSITOMETRY CLINICAL INDICATION: Wedge compression fracture of unspecified thoracic vertebra. COMPARISON: This is the patient's baseline examination. TECHNIQUE: Using a [employer] DXA System (software version: 13.1) manufactured by [employer], dual-energy x-ray absorptiometry was performed of the lumbar spine and left hip. The images are of good technical quality. Summary results are attached. FINDINGS: LEFT FEMUR, NECK: BMD 0.944 g/cm2, Z-score -0.3, T-score -0.7, normal. LEFT FEMUR, TOTAL: BMD 1.052 g/cm2, Z-score 0.4, T-score 0.4, normal. AP SPINE L1-L4: BMD 0.959 g/cm2, Z-score -2.0, T-score -1.8, osteopenia. IDENTIFIED RISK FACTORS: Early menopause, secondary osteoporosis, history of fracture (adult), hysterectomy, left oophorectomy. HISTORY OF FRACTURE: Spine. MEDICATIONS: Vitamin D. MM/XR DEXA axial skeleton IMPRESSION: 1. DIAGNOSIS: Osteopenia based on the lowest T-score value of -1.8 in the lumbar spine applying World Health Organization criteria. 2. 10-YEAR FRACTURE RISK PREDICTION, FRAX: Major osteoporotic fracture (clinical spine, forearm, hip or shoulder) 4.1%. Hip fracture 0.1%. 3. Treatment Recommendations: NOF guidelines recommend consideration for treatment in postmenopausal women and men age 50 and older presenting with the following: -A hip or vertebral (clinical or morphometric) fracture. -T-score less than or equal to -2.5 at the femoral neck or spine after appropriate evaluation to exclude secondary causes. -Low bone mass at the hip or spine and a 10-year fracture probability by FRAX of greater than or equal to 3% for hip fracture or greater than or equal to 20% for major osteoporotic fracture based on the [place] adapted WHO algorithm. 4. Other Recommendations: All treatment decisions require clinical judgment and consideration of individual patient factors, including patient preferences, comorbidities, previous drug use, risk factors not captured in the FRAX model (e.g. frailty, falls, vitamin D deficiency, increased bone turnover, interval significant decline in bone density) and possible under or overestimation of fracture risk by FRAX. Additional medical evaluation for secondary cause of low bone mineral density may be appropriate. FUTURE SCAN RECOMMENDATION: People with diagnosed cases of osteoporosis or at high risk for fracture should have regular bone mineral density tests. For patients eligible for Medicare, routine testing is allowed once every 2 years. The testing frequency can be increased to one year for patients who have rapidly progressing disease, those who are receiving or discontinuing medical therapy to restore bone mass, or have additional risk factors. [address] [address] XRay Report Signed Patient: Yanci Toney MR#: [id number] : 1970 Acct:[id number] Age/Sex: 53 / F ADM Date: 03/26/23 Ordering Physician: Huey Lou MD Date of Service: 03/26/23 Procedure(s): XR hip RT w PEL1V Accession Number(s): [id number] cc: Huey Lou MD~ EXAMINATION: XR HIP, RIGHT CLINICAL INFORMATION: Osteoarthritis, question progression COMPARISON: 05/08/2022 right hip radiograph, 01/25/2023 right hip fluoroscopy TECHNIQUE: Two views of the right hip and AP pelvis FINDINGS: Bone on bone, severe right hip joint space narrowing and sclerosis having demonstrated progression from 05/08/2022. Right hip is higher than the left. Right greater trochanteric spurring. No fracture or dislocation. Surgical clips, pelvic calcifications. XR/XR hip RT w PEL1V IMPRESSION: Progression of severe right hip osteoarthritis. Dictated By: Esperanza Coates MD Signed By: <Electronically signed by Esperanza Coates MD in OV> 03/27/23 1521 Assessment & Plan Assessment & Plan (1) Encounter for medication monitoring: Comment: Tramadol pain contract updated 10/02/2022 Code(s): Z51.81 - Encounter for therapeutic drug level monitoring (2) Fibromyalgia: Code(s): M79.7 - Fibromyalgia (3) Lumbar spondylosis: Comment: Humira 11/2017-12/2017 Methotrexate: 04/2019-07/2019 Sulfasalazine : 04/2019-07/2019 Code(s): M47.816 - Spondylosis without myelopathy or radiculopathy, lumbar region (4) Osteopenia: Comment: T scores 03/2023: Femur 0.4, femoral neck-0.7, LS -1.8 FRAX: 4.1/0.1 Code(s): M85.80 - Other specified disorders of bone density and structure, unspecified site Qualifiers: Osteopenia location: lumbar spine Qualified Code(s): M85.88 - Other specified disorders of bone density and structure, other site (5) Osteoarthritis of right hip: Code(s): M16.11 - Unilateral primary osteoarthritis, right hip Qualifiers: Osteoarthritis type: primary Qualified Code(s): M16.11 - Unilateral primary osteoarthritis, right hip Plan She has severe osteoarthritis in the right hip and is quite symptomatic. Hopefully the surgery will be helpful in this regard. She does have some lumbar osteoarthritis and probably some fibromyalgia as well. I refilled her tramadol today and told her she could try to taper down before her surgery to get better perioperative pain relief after the surgery. Hopefully she will not be needing the tramadol after the surgery for very long. The recent DEXA did confirm osteopenia but the FRAX analysis was not enough to push for antiresorptive treatment at this stage. We will schedule a return at about 4 months. Coding Level of Care Code Est Pt Level 3 (22364) Diagnoses Encounter for medication monitoring Z51.81 Fibromyalgia M79.7 Lumbar spondylosis M47.816 Osteopenia of lumbar spine M85.88 Osteopenia location: lumbar spine Primary osteoarthritis of right hip M16.11 Osteoarthritis type: primary
== END 2023-08-01 12:02 | disposition home or self-care (01) ==
PROVIDERS: PCP Internal Medicine; Visit Provider Internal Medicine Rheumatology
DX: Z51.81 Encounter for therapeutic drug level monitoring (principal); M79.7 Fibromyalgia; M47.816 Spondylosis without myelopathy or radiculopathy, lumbar region; M85.88 Other specified disorders of bone density and structure, other site; M16.11 Unilateral primary osteoarthritis, right hip
CPT/HCPCS: 99213

== ENCOUNTER → 2023-08-01 11:26 | Outpatient (BNVA) | payer OTHER, SELFPAY | PROVIDERS: PCP Internal Medicine; Visit Provider Internal Medicine Rheumatology | DX: M79.7 Fibromyalgia (principal); Z51.81 Encounter for therapeutic drug level monitoring; M47.816 Spondylosis without myelopathy or radiculopathy, lumbar region; M85.88 Other specified disorders of bone density and structure, other site; M16.11 Unilateral primary osteoarthritis, right hip | CPT/HCPCS: 99212 ==

== ENCOUNTER 2023-08-03 09:49 | Observation (INO) | payer OTHER, SELFPAY ==
--- NOTE | ~2023-08-03 | CT_ITS ---
EXAMINATION: CT ABDOMEN AND PELVIS WITHOUT CONTRAST CLINICAL INFORMATION: Pain, vomiting COMPARISON: 02/13/2023 TECHNIQUE: Multidetector volumetric imaging was performed from the superior aspect of the liver through the pubic symphysis. Sagittal and coronal reformatted images were obtained on the technologist's workstation. This CT examination was performed using dose optimization techniques as appropriate, variously including the following: *Automated exposure control *Adjustment of mA and/or kV according to patient size (this includes techniques or standardized protocols for targeted exams where dose is matched to indication/reason for exam; i.e. extremities or head) *Use of iterative reconstruction technique DLP: 507 mGy-cm FINDINGS: LUNG BASES: The visualized lung bases are unremarkable. LIVER, GALLBLADDER, AND BILIARY TREE: The liver is normal in size, shape, and attenuation. No focal hepatic lesion or biliary ductal dilatation is present. Status post cholecystectomy PANCREAS: Unremarkable. SPLEEN: Unremarkable. ADRENAL GLANDS: Unremarkable. Kidneys Findings suggest mild hydronephrosis on the right foot improved from previous. Renal calculi on the right are noted Increasing hydronephrosis on the left. The ureter is also prominent to the pelvis at which time it is poorly visualized. There are calcifications and possible surgical sutures/postsurgical change along the path of the ureter here. I clearly I believe are outside the ureter but given the hydronephrosis I cannot rule out a calcification within the distal left ureter. BLADDER: Bladder appears decompressed thick-walled with surrounding soft tissue stranding similar to previous. Calcification inferior to the bladder. GASTROINTESTINAL TRACT: Once again significant soft tissue stranding around the perirectal tissues in rectosigmoid. No significant change from previous. Surgical clips in the region. The large bowel is decompressed. Once again demonstrating prominent small bowel loops here. Appearances similar to previous. ABDOMINAL WALL: No significant hernia is appreciated. LYMPH NODES: Prominent lymph nodes in the left greater than right groin are once again seen. No bulky adenopathy or significant change in the abdomen pelvis VASCULAR: Atherosclerotic changes are noted. PELVIC VISCERA: As described soft tissue stranding in the pelvis. Similar to previous. This also involves the presacral region and around the rectosigmoid OSSEOUS STRUCTURES: Significant Degenerative change right hip noted CT/CT abdomen pelvis wo IV con IMPRESSION: Increasing hydronephrosis on the left now marked. Dilated ureter seen to the level of the midpelvis and below this is not adequately visualized. Etiology of hydronephrosis is uncertain. This may be due to scarring/postsurgical or therapy changes in the area. Ureteral calculus cannot be excluded due to significant spiculated densities in the pelvic sidewall on the left. Recommend urologic consultation Moderate hydronephrosis on the right appears mildly improved from previous. Nonobstructing renal calculi on the right are noted. Given the above findings consider renal nuclear medicine scintigraphy with Lasix. Once again prominent small bowel loops with a decompressed large bowel. Element of partial obstruction cannot be excluded here. Appearance is similar to previous. Continued soft tissue stranding and abnormal density within the pelvis without definitive increase from previous Thick-walled bladder with irregularity and soft tissue stranding is similar to previous. Again correlation needs to be made clinically Once again focal calcification seen inferior to the bladder which may be in the urethra. Again urologic consultation is recommended Fleischner guidelines were followed.
[2023-08-03 09:56] VITALS: BP 150/100; BP 151/75; PULSE 81; PULSE 86; RESP 20; TEMP 36.9; O2SAT 97; BMI 32.4
--- NOTE | 2023-08-03 09:57 | ECG_ITS ---
Test Reason : ABD PAIN Blood Pressure : / mmHG Vent. Rate : 078 BPM Atrial Rate : 078 BPM P-R Int : 126 ms QRS Dur : 090 ms QT Int : 392 ms P-R-T Axes : 042 003 028 degrees QTc Int : 446 ms Sinus rhythm with occasional Premature ventricular complexes Otherwise normal ECG When compared with ECG of 25-JUL-2023 14:51, Premature ventricular complexes are now Present Referred By: Temitope Montero Electronically Signed By:STEPHANE RHODES
--- NOTE | 2023-08-03 10:04 | ED_ITS ---
HPI - Abdominal Pain General Chief Complaint: Abdominal Pain Stated Complaint: EPIGASTRIC PAIN,N/V,WEAKNESS Source: patient, EMS and old records reviewed Mode of arrival: EMS Limitations: no limitations History of Present Illness HPI narrative: 53 yo female with PMH of bilateral kidney stones, ureteral strictures hx of ESWL and recent procedures and dilation through [facility] - just seen 07/13, bilateral hydronephrosis, bipolar, fibromyalgia, HLD, asthma, migraines, SBO, cholecystectomy, hysterectomy, oophorectomy who comes in with abrupt onset epigastric abdominal pain and n/v with some mild diarrhea did pass gas. Denies fevers, no recent abx use. No food exposures or sick contacts. Given zofran total 8mg no relief. MD elicited complaint: abdominal pain Pertinent past history: other (multiple abdominal surgeries) Onset (ago): hour(s) (8) Pain Consistency: constant Location: epigastric Severity: severe Quality: stabbing Radiation: none Migration to: no migration Exacerbating factors: eating and movement Relieving factors: nothing Context: history of similar episodes Associated symptoms: nausea, vomiting and diarrhea Related Data Home Medications Medication Instructions Recorded Confirmed cetirizine 10 mg tablet (Zyrtec) 10 mg PO DAILY 07/06/20 08/02/23 clonazepam 1 mg tablet (Klonopin) 1 mg PO BID 07/06/20 08/02/23 montelukast 10 mg tablet 10 mg PO DAILY 07/06/20 08/02/23 (Singulair) naratriptan 2.5 mg tablet See Rx Instructions PO .COMPLEX 07/06/20 08/02/23 travoprost 0.004 % eye drops 1 drp ophthalmic (eye) QPM 07/06/20 08/02/23 (Travatan Z) cyclosporine 0.05 % eye drops in a 1 drp ophthalmic (eye) Q12H 01/06/21 08/02/23 dropperette (Restasis) dorzolamide 22.3 mg-timolol 6.8 1 drp ophthalmic (eye) BID 05/08/22 08/02/23 mg/mL eye drops bupropion HCl 150 mg 24 hr tablet, 150 mg PO QAM 09/18/22 08/02/23 extended release epinephrine 0.3 mg/0.3 mL 0.3 mg IM ONCE PRN anaphylaxis 09/18/22 08/02/23 injection, auto-injector benzonatate 100 mg capsule 100 - 200 mg PO QID PRN cough 03/01/23 08/02/23 bimatoprost 0.01 % eye drops 1 drp ophthalmic (eye) BEDTIME 03/26/23 08/02/23 (Lumigan) metoprolol tartrate 25 mg tablet 25 mg PO BID 03/26/23 08/02/23 omalizumab 150 mg subcutaneous 150 mg subcut Q3W 05/02/23 08/02/23 solution (Xolair) Previous Rx's Medication Instructions Recorded duloxetine 60 mg capsule,delayed 60 mg PO DAILY #90 caps 09/21/21 release cholecalciferol (vitamin D3) 50 50 mcg PO DAILY #90 caps 12/12/21 mcg (2,000 unit) capsule methylcellulose (laxative) 500 mg 500 mg PO DAILY #90 tabs 12/12/21 tablet (Citrucel) zolpidem 10 mg tablet (Ambien) 10 mg PO BEDTIME PRN Insomnia 30 12/28/21 days #30 tabs naloxone 4 mg/actuation nasal 4 mg intranasal Q2M PRN opioid 03/15/22 spray (Narcan) overdose #2 ea famotidine 20 mg tablet 20 mg PO BEDTIME 90 days #90 tabs 09/20/22 mxrpwc-ekyhwgaw-pblqmle 1 cap PO .qid ac #120 caps 09/20/22 6,000-19,000-30,000 unit capsule,delayed rel (Creon) pantoprazole 40 mg tablet,delayed 40 mg PO DAILY #90 tabs 09/20/22 release valacyclovir 500 mg tablet 500 mg PO BID 7 days #14 tabs 09/25/22 albuterol sulfate 90 mcg/actuation 2 puff inhalation Q4-6H PRN 09/29/22 aerosol inhaler Shortness Of Breath Or Wheezing #8.5 grams SHOWER CHAIR #1 ea 01/23/23 fluticasone propionate 220 1 puff inhalation BID #12 grams 01/24/23 mcg/actuation HFA aerosol inhaler (Flovent HFA) ondansetron 4 mg disintegrating 4 mg PO Q8H 3 days #9 tabs 02/13/23 tablet bisacodyl 5 mg tablet,delayed 10 mg (2 x 5 mg) PO BEDTIME #180 03/21/23 release (Dulcolax (bisacodyl)) tabs atorvastatin 20 mg tablet 20 mg PO DAILY 90 days #90 tabs 04/27/23 baclofen 20 mg tablet 20 mg PO BID 30 days #60 tabs 05/15/23 fluticasone propionate 50 1 spray intranasal DAILY #48 mL 05/28/23 mcg/actuation nasal spray,suspension gabapentin 800 mg tablet 800 mg PO Q8H 30 days #90 tabs 06/26/23 tramadol 50 mg tablet 50 mg PO BID #60 tabs 08/01/23 walker #1 ea 08/02/23 Allergies Allergy/AdvReac Type Severity Reaction Status Date / Time Penicillins [PENICILLINS] Allergy Severe HIVES Verified 08/03/23 09:58 Iodinated Contrast Media Allergy Intermediate HIVES Verified 08/03/23 09:58 [IV CONTRAST] peanut [PEANUTS] Allergy Intermediate HIVES Verified 08/03/23 09:58 shellfish derived Allergy Intermediate HIVES Verified 08/03/23 09:58 [SHELLFISH DERIVED] cat dander Allergy Mild unknown Verified 08/03/23 09:58 dog dander Allergy Mild unknown Verified 08/03/23 09:58 pollen extracts Allergy Mild runny Verified 08/03/23 09:58 nose, itchy eyes triamcinolone Allergy Unknown Unknown Verified 08/03/23 09:58 Review of Systems Review of Systems Constitutional : No Weight loss, No Fever, No Chills ENT/Mouth : No sore throat, No Rhinorrhea Eyes: No Swelling, No Redness Cardiovascular : No Chest Pain, No SOB, NoEdema Respiratory : No Cough, No Sputum, No Wheezing Gastrointestinal : Positive Nausea, Positive Vomiting, positive Diarrhea, positive abdominal Pain, No Hematochezia, No Melena Genitourinary : No Dysuria, No Urinary Frequency, No Hematuria, No Urgency Musculoskeletal : No joint pain, No Myalgias, No Joint Swelling Skin : No Skin Lesions, No rash Neuro : No Weakness, No Numbness, No Dizziness, No Headache Psych : No Anxiety/Panic, No Depression Heme/Lymph: No Bruising, No Lymphadenopathy Endocrine : No Polyuria, No Polydipsia All other systems reviewed and are negative. [facility] Past Medical History Attestation statement: The following information was validated with the patient. Medical History Osteopenia Sacroiliac joint pain Encounter for medication monitoring Palpitations Gastritis Fibromyalgia Hx of small bowel obstruction Abdominal pain Obesity (BMI 30-39.9) Bipolar depression Insomnia HLA-B27 spondyloarthropathy Osteoarthritis of multiple joints Vitamin D deficiency Migraine Allergic rhinitis Mild intermittent asthma without complication Pure hypercholesterolemia Primary osteoarthritis of right hip Lumbar spondylosis Surgical History S/P cystourethroscopy with dilation of urethral stricture (~07/21/20) History of esophagogastroduodenoscopy (EGD) Hx of unilateral oophorectomy Hx of colonoscopy Hx of cholecystectomy Hx of cystoscopy History of extraction of renal calculus Hx of removal of ovary History of carpal tunnel surgery History of hand surgery History of hysterectomy Family History Family History Father Kidney problem Diabetes Mother Kidney malignancy Diabetes Brother Asthma Diabetes Social History Social History Housing: House Alcohol intake: never Patient Tobacco Use Status: Never used Tobacco e-Cigarette/Vaping Use: Never Used Second Hand Smoke Exposure: No Advance Directives: No Advance Directives Information Provided: Yes service: No Current occupational status: disabled Cognitive needs: No Hearing needs: No Vision needs: Yes Physical Exam ED Vital Signs: Vital Signs - 24 hr 08/03/23 09:56 08/03/23 10:53 08/03/23 12:14 Temperature 98.5 F 98.6 F Pulse Rate 81 80 Respiratory Rate 20 16 16 Blood Pressure 151/75 H 119/64 Pulse Oximetry 97 96 Oxygen Delivery Method Room Air Room Air BMI result Body Mass Index 32.4 Appearance: Alert. Oriented X3. anxious in pain mild acute distress. Eyes: Pupils equal, round and reactive to light. ENT: Pharynx normal. Neck: Normal inspection. Neck supple. CVS: Normal heart rate and rhythm. Pulses normal. Respiratory: No respiratory distress. Breath sounds normal. Abdomen: Soft and moderate ttp in epigastric area without rebound Skin: Skin warm and dry. Normal skin color. Normal skin turgor. Extremities: No lower extremity edema. No calf ttp Neuro: Oriented X 3. No motor deficit. No sensory deficit. Course Course Course Narrative: at this time UA + infection suspected 1230pm IV ceftriaxone ordered Reevaluation(s) Reevaluation #1: 07/13 urology notes state L sided hydronephrosis is worsening susepct this is not new - chronic , PSBO is also not new Medical Decision Making Medical Decision Making [facility] Narrative: 53 yo female with PMH of bilateral kidney stones, ureteral strictures hx of ESWL and recent procedures and dilation through [facility] - just seen 07/13, bilateral hydronephrosis, bipolar, fibromyalgia, HLD, asthma, migraines, SBO, cholecystectomy, hysterectomy, oophorectomy here with epigastric abdominal pain n/v and had some diarrhea and passed gas starting at 2am. At this time will need labs, CT scan for SBO, IV medications for nausea, IV morphine for pain, UA. 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 Brooke aware) Lab Data [facility] Lab Attestation statement: I reviewed the patient's lab results. 08/03/23 10:43 08/03/23 10:43 Labs: Lab Results 08/03/23 08/03/23 08/03/23 Range/Units 10:43 12:14 13:06 WBC 12.6 H (4.8-10.8) X10*3/uL RBC 5.30 (4.20-5.50) X10*6/uL Hgb 13.8 (12.0-16.0) g/dl Hct 44.3 (37.0-47.0) % MCV 83.6 (80.0-98.0) fL MCH 26.0 L (27.0-33.0) pg MCHC 31.2 (31.0-35.0) g/dl RDW 14.6 (11.0-16.0) % Plt Count 388 (160-400) X10*3/uL MPV 10.5 (9.4-12.3) fL Immature Gran % (Auto) Cancelled Neut % (Auto) Cancelled Lymph % (Auto) Cancelled [place] % (Auto) Cancelled Eos % (Auto) Cancelled Baso % (Auto) Cancelled Lymph # (Auto) Cancelled [place] # (Auto) Cancelled Eos # (Auto) Cancelled Baso # (Auto) Cancelled Abs Immat Gran (auto) Cancelled Absolute Neuts (auto) Cancelled Absolute Nucleated RBC 0.000 (0.0-0.012) X10*3/uL Nucleated RBC % (auto) 0.0 (0.0-0.2) /100WBC Neutrophils % (Manual) 94 H (45-73) % Band Neutrophils % 4 (3-5) % Lymphocytes % (Manual) 1 L (20-40) % Monocytes % (Manual) 1 L (2-11) % Abs Neuts (Manual) 12.3 H (2.0-8.3) X10*3/uL Lymphocytes # (Manual) 0.1 L (1.2-4.9) X10*3/uL Monocytes # (Manual) 0.1 (0.1-1.2) X10*3/uL Toxic Vacuolation PRESENT Platelet Estimate NORMAL (NORMAL) Plt Morphology Comment NORMAL RBC Morphology NORMAL Hold Purple Top SEE NOTE Sodium 137 (135-145) mmol/L Potassium 4.5 (3.3-5.1) mmol/L Chloride 103 (96-108) mmol/L Carbon Dioxide 22 (22-29) mmol/L Anion Gap 17 (12-20) BUN 14 (9-16) mg/dL Creatinine 0.95 (0.5-1.4) mg/dL Estim Creat Clear Calc 70.6 Estimated GFR > 60 Random Glucose 145 H (60-115) mg/dL Lactic Acid 1.8 (0.5-2.0) mmol/L Calcium 10.5 H D (8.4-10.2) mg/dL Magnesium 1.9 (1.6-2.6) mg/dL Total Bilirubin 0.5 (0.0-1.0) mg/dL Direct Bilirubin 0.1 (0.0-0.5) mg/dL AST 23 (5-31) U/L ALT 15 (0-31) U/L Alkaline Phosphatase 114 (39-117) U/L Troponin I High Sens < 2.7 (<3.5-17.0) ng/L Total Protein 9.7 H (6.5-8.0) g/dL Albumin 4.8 (3.5-5.0) g/dL Lipase 23 (8-78) U/L Urine Color Dark Yellow Urine Appearance Clear Urine pH 6.0 (5.0-9.0) Ur Specific [place] 1.020 (1.005-1.025) Urine Protein Trace (Neg-Trace) mg/dL Urine Glucose (UA) Negative (Negative) mg/dL Urine Ketones Trace (Negative) mg/dL Urine Blood Negative (Negative) Urine Nitrite Positive H (Negative) Ur Leukocyte Esterase Trace H (Negative) Urine RBC 0-2 (0-2) /HPF Urine WBC 0-5 (0-5) /HPF Ur Squamous Epith Cells 0-2 (0-2) /HPF Urine Bacteria None Seen (None Seen) Hyaline Casts 0-2 (0-2) /LPF Independent Interpretation I performed an independent interpretation of an: EKG and CT Scan (chronic findings not really new from urology notes 07/13, PSBO chronic as well) Interpretation: Rate: 78 Rhythm: NSR with PVCs [place]: left Normal P waves. Normal NICOL. Normal QRS complex. ST T wave : normal no BEN, inverted t wave III qTC: normal prior studies: no acute ischemia The study has been interpreted contemporaneously by me. . Radiology Impression Discussion of test interpretation with radiology: I have reviewed the radiologist's reading. Independent Historian Clinical information obtained from an independent historian. History obtained from or confirmed by: Spouse and EMS External Record Review External record reviewed: Inpatient record and Office record Medications Administered Discontinued Medications Generic Name Dose Route Start Last Admin Trade Name Torresq PRN Reason Stop Dose Admin Diphenhydramine HCl 25 mg 08/03/23 09:57 08/03/23 10:53 Diphenhydramine Hcl 50 Mg/Ml Vial IVPUSH 08/03/23 09:58 25 mg ONCE ONE Administration Sodium Chloride 500 mls @ 500 mls/hr 08/03/23 10:15 08/03/23 11:46 Ns IV 08/03/23 11:14 Infused .Q1H MADELEINE Infusion Metoclopramide HCl 10 mg 08/03/23 09:57 08/03/23 10:53 Metoclopramide Hcl 10 Mg/2 Ml Vial IVPUSH 08/03/23 09:58 10 mg ONCE ONE Administration Morphine Sulfate 4 mg 08/03/23 10:02 08/03/23 10:53 Morphine Sulfate 4 Mg/Ml Cartridge IVPUSH 08/03/23 10:03 4 mg ONCE ONE Administration Protocol Discharge Plan Discharge Clinical Impression: Intractable nausea and vomiting, Acute UTI Abdominal pain Qualifiers: Abdominal location: epigastric Qualified Code(s): R10.13 - Epigastric pain Patient Disposition: Admitted As Inpatient Prescriptions: No Action duloxetine 60 mg capsule,delayed release(DR/EC) 60 mg PO DAILY Qty: 90 1RF zolpidem [Ambien] 10 mg tablet 10 mg PO BEDTIME PRN (Reason: Insomnia) 30 Days Qty: 30 0RF albuterol sulfate 90 mcg/actuation HFA aerosol inhaler 2 puff inhalation Q4-6H PRN (Reason: Shortness Of Breath Or Wheezing) Qty: 8.5 3RF Flovent HFA 220 mcg/actuation HFA aerosol inhaler 1 puff inhalation BID Qty: 12 3RF atorvastatin 20 mg tablet 20 mg PO DAILY 90 Days Qty: 90 1RF baclofen 20 mg tablet 20 mg PO BID 30 Days Qty: 60 2RF Rx Instructions: take 1/2 of the pill if there are side effects with full dose. gabapentin 800 mg tablet 800 mg PO Q8H 30 Days Qty: 90 8RF tramadol 50 mg tablet 50 mg PO BID Qty: 60 3RF (DME) walker Misc See Rx Instructions .MEDSUPPLY Qty: 1 0RF Rx Instructions: Folding Front wheeled walker ondansetron 4 mg tablet,disintegrating 4 mg PO Q8H 3 Days Qty: 9 0RF (DME) SHOWER CHAIR See Rx Instructions .Route .MEDSUPPLY Qty: 1 0RF Rx Instructions: As directed fluticasone propionate 50 mcg/actuation spray,suspension 1 spray intranasal DAILY Qty: 48 1RF valacyclovir 500 mg tablet 500 mg PO BID 7 Days Qty: 14 0RF travoprost [Travatan Z] 0.004 % drops 1 drp ophthalmic (eye) QPM naratriptan 2.5 mg tablet See Rx Instructions PO .COMPLEX Rx Instructions: take 1 tab at onset of headache; if no relief may repeat 1 tab after at least 4 hrs; max = 2 tabs/24 hrs PO clonazepam [Klonopin] 1 mg tablet 1 mg PO BID montelukast [Singulair] 10 mg tablet 10 mg PO DAILY cetirizine [Zyrtec] 10 mg tablet 10 mg PO DAILY Restasis 0.05 % dropperette 1 drp ophthalmic (eye) Q12H Xolair 150 mg recon soln 150 mg subcut Q3W Citrucel 500 mg tablet 500 mg PO DAILY Qty: 90 2RF Rx Instructions: take it with full glass of water cholecalciferol (vitamin D3) 50 mcg (2,000 unit) capsule 50 mcg PO DAILY Qty: 90 3RF dorzolamide-timolol 22.3-6.8 mg/mL drops 1 drp ophthalmic (eye) BID pantoprazole 40 mg tablet,delayed release (DR/EC) 40 mg PO DAILY Qty: 90 2RF Rx Instructions: take one tablet half an hour before breakfast Creon 6,000-19,000 -30,000 unit capsule,delayed release(DR/EC) 1 cap PO .qid ac Qty: 120 3RF Rx Instructions: do not exceed 10,000 unit/kg lipase per 24 hrs famotidine 20 mg tablet 20 mg PO BEDTIME 90 Days Qty: 90 1RF bupropion HCl 150 mg tablet extended release 24 hr 150 mg PO QAM epinephrine 0.3 mg/0.3 mL auto-injector 0.3 mg IM ONCE PRN (Reason: anaphylaxis) metoprolol tartrate 25 mg tablet 25 mg PO BID Lumigan 0.01 % drops 1 drp ophthalmic (eye) BEDTIME naloxone [Narcan] 4 mg/actuation spray,non-aerosol 4 mg intranasal Q2M PRN (Reason: opioid overdose) Qty: 2 0RF Rx Instructions: spray 1 dose into ONE nostril; alternate nostrils w each dose until help arrives benzonatate 100 mg capsule 100 - 200 mg PO QID PRN (Reason: cough) bisacodyl [Dulcolax (bisacodyl)] 5 mg tablet,delayed release (DR/EC) 10 mg PO BEDTIME Qty: 180 4RF
--- NOTE | 2023-08-03 10:24 | PC.NURSE ---
Pt woke up at 2am vomiting and having 10/10 epigastric pain, reporting she has had similar episodes in the past. This commercial real estate underwriter attempted an IV x2, EMS attempted x1, awaiting IV placement, and will administer medications per MAR
[2023-08-03] MEDS: 0.9 % Sodium Chloride 500 ML IV (10:40)
[2023-08-03 10:51] LABS: Hematocrit 44.3 % (37.0-47.0); Hemoglobin 13.8 g/dl (12.0-16.0); Mean Corpuscular HGB Conc 31.2 g/dl (31.0-35.0); Mean Corpuscular Volume 83.6 fL (80.0-98.0); Mean Platelet Volume 10.5 fL (9.4-12.3); Platelet Count 388 X10*3/uL (160-400); Red Cell Distribution Width 14.6 % (11.0-16.0); White Blood Count 12.6 X10*3/uL (4.8-10.8)
[2023-08-03 10:53] VITALS: RESP 16
[2023-08-03] MEDS: diphenhydrAMINE HCL 50 MG/ML VIAL 25 MG IVPUSH (10:53)
[2023-08-03] MEDS: Morphine Sulfate 4 MG/ML CARTRIDGE IVPUSH (10:53)
[2023-08-03] MEDS: Metoclopramide HCl 10 MG/2 ML VIAL IVPUSH (10:53)
[2023-08-03 11:11] LABS: Band Neutrophils Percent 4 % (3-5); Lymphocytes Absolute Manual 0.1 X10*3/uL (1.2-4.9); Lymphocytes Percent Manual 1 % (20-40); Monocytes Absolute Manual 0.1 X10*3/uL (0.1-1.2); Monocytes Percent Manual 1 % (2-11); Neutrophils Absolute Manual 12.3 X10*3/uL (2.0-8.3); Neutrophils Percent Manual 94 % (45-73)
[2023-08-03 11:12] LABS: Alanine Aminotransferase 15 U/L (0-31); Albumin Level 4.8 g/dL (3.5-5.0); Alkaline Phosphatase 114 U/L (39-117); Anion Gap 17 (12-20); Aspartate Amino Transferase 23 U/L (5-31); Bilirubin Direct 0.1 mg/dL (0.0-0.5); Bilirubin Total 0.5 mg/dL (0.0-1.0); Blood Urea Nitrogen 14 mg/dL (9-16); Calcium 10.5 mg/dL (8.4-10.2); Carbon Dioxide 22 mmol/L (22-29); Chloride 103 mmol/L (96-108); Creatinine Clr Calc Pharmacy 70.6; Estimated Glomerular Filt Rate > 60; Glucose Random 145 mg/dL (60-115); Lipase 23 U/L (8-78); Magnesium 1.9 mg/dL (1.6-2.6); Platelet Estimate NORMAL (NORMAL); Platelet Morphology Comment NORMAL; Potassium 4.5 mmol/L (3.3-5.1); RBC Morphology NORMAL; Sodium 137 mmol/L (135-145); Total Protein 9.7 g/dL (6.5-8.0); Toxic Vacuolation PRESENT; Troponin-I High Sensitivity < 2.7 ng/L (<3.5-17.0)
--- NOTE | 2023-08-03 11:49 | PC.NURSE ---
assumed care of pt at 1100, resting quietly, pt reports improvement in pain/nausea. will try to obtain urine sample. pending CT results.
[2023-08-03 12:14] VITALS: BP 119/64; PULSE 80; RESP 16; TEMP 37; O2SAT 96
--- NOTE | 2023-08-03 12:18 | PC.NURSE ---
pt a&ox4, vss, verbalizes some improvement in pain, urine sample obtained and sent to lab. pt reports appt w SSS @ 1300, SSS notified - possible plan for RN to come to ED for appt, pt aware.
[2023-08-03 12:26] LABS: Appearance Urine Clear; Color Urine Dark Yellow; Glucose Urine UA Negative (Negative); Leukocyte Esterase Urine Trace (Negative); Nitrite Urine Positive (Negative); UMIC TRIGGER UACC YES; Urine Blood Negative (Negative); Urine Ketones Trace mg/dL (Negative); Urine Protein Trace mg/dL (Neg-Trace)
--- NOTE | 2023-08-03 12:53 | PC.NURSE ---
abx ordered by provider, delay in administration d/t order for lactic/blood cultures - pt is a difficult stick, 2nd tech attempting.
[2023-08-03 12:55] LABS: Bacteria Urine None Seen (None Seen); Hyaline Casts Urine 0-2 /LPF (0-2); RBC Urine 0-2 /HPF (0-2); Squamous Epithelial Cell Urine 0-2 /HPF (0-2); UACC Culture Trigger YES; WBC Urine 0-5 /HPF (0-5)
[2023-08-03 13:24] LABS: Lactic Acid 1.8 mmol/L (0.5-2.0)
--- NOTE | 2023-08-03 13:31 | MHC.EDTECH ---
RN aware of delay in 2nd set of blood cultures due to Pt being a hard stick. T/w and another tech attempted to draw Pt and unsuccessful.
[2023-08-03] MEDS: cefTRIAXone sodium 1 GM in 0.9 % Sodium Chloride 50 ML IV (13:55)
--- NOTE | 2023-08-03 13:55 | PC.NURSE ---
tech obtained 2nd set of cultures, IV abx initiated. pt pending admission orders.
[2023-08-03] MEDS: Famotidine/PF 20 MG/2 ML VIAL IVPUSH (14:25)
--- NOTE | 2023-08-03 14:41 | PM.IMHP ---
History of Present Illness Date of Service: 08/03/23 Attending physician on admission: Sarabjit Neff Chief Complaint: nausea and vomiting This is a 53 year female with history of kidney stones who presents to the emergency department with nausea and vomiting. Patient states around 02:00 o'clock this morning she woke up with nausea and vomiting. She has chills and associated upper abdominal pain. She has also had 2 episodes of diarrhea. In the emergency room her workup was significant for leukocytosis of 12.6. CT scan of the abdomen showed bilateral hydronephrosis, patient has history of chronic hydronephrosis and follows with [facility]. CT scan can not rule out ureteral calculus. CT scan also showed prominent small bowel loops with decompressed large bowel and an element of partial obstruction could not be excluded. This appears similar to previous. Urinalysis was nitriate positive although patient denied any dysuria. Her abdominal pain was primarily associated in the epigastric and left upper abdomen. She received a dose of ceftriaxone to cover for possible urinary tract infection and received nausea medication. She continues to have nausea and she will be admitted overnight for observation. Review of Systems Review of Systems: Yes all other systems are reviewed and are negative Constitutional: Constitutional: Denies chills and Denies fever(s) Cardiovascular: Cardiovascular: Denies chest pain Gastrointestinal: Gastrointestinal: Reports abdominal pain, Denies constipation, Reports diarrhea, Reports nausea and Reports vomiting [facility] Medical History Osteopenia Sacroiliac joint pain Encounter for medication monitoring Palpitations Gastritis Fibromyalgia Hx of small bowel obstruction Abdominal pain Obesity (BMI 30-39.9) Bipolar depression Insomnia HLA-B27 spondyloarthropathy Osteoarthritis of multiple joints Vitamin D deficiency Migraine Allergic rhinitis Mild intermittent asthma without complication Pure hypercholesterolemia Primary osteoarthritis of right hip Lumbar spondylosis Family History Father Kidney problem Diabetes Mother Kidney malignancy Diabetes Brother Asthma Diabetes Surgical History S/P cystourethroscopy with dilation of urethral stricture (~07/21/20) History of esophagogastroduodenoscopy (EGD) Hx of unilateral oophorectomy Hx of colonoscopy Hx of cholecystectomy Hx of cystoscopy History of extraction of renal calculus Hx of removal of ovary History of carpal tunnel surgery History of hand surgery History of hysterectomy Social History Housing: House Alcohol intake: never Patient Tobacco Use Status: Never used Tobacco e-Cigarette/Vaping Use: Never Used Second Hand Smoke Exposure: No Advance Directives: No Advance Directives Information Provided: Yes service: No Current occupational status: disabled Cognitive needs: No Hearing needs: No Vision needs: Yes Meds Allergies Allergy/AdvReac Type Severity Reaction Status Date / Time Penicillins [PENICILLINS] Allergy Severe HIVES Verified 08/03/23 09:58 Iodinated Contrast Media Allergy Intermediate HIVES Verified 08/03/23 09:58 [IV CONTRAST] peanut [PEANUTS] Allergy Intermediate HIVES Verified 08/03/23 09:58 shellfish derived Allergy Intermediate HIVES Verified 08/03/23 09:58 [SHELLFISH DERIVED] cat dander Allergy Mild unknown Verified 08/03/23 09:58 dog dander Allergy Mild unknown Verified 08/03/23 09:58 pollen extracts Allergy Mild runny Verified 08/03/23 09:58 nose, itchy eyes triamcinolone Allergy Unknown Unknown Verified 08/03/23 09:58 Home Medications Medication Instructions Recorded Confirmed Last Taken Type cetirizine 10 mg tablet (Zyrtec) 10 mg PO DAILY 07/06/20 08/03/23 08/02/23 History clonazepam 1 mg tablet (Klonopin) 1 mg PO BID 07/06/20 08/03/23 08/02/23 History montelukast 10 mg tablet 10 mg PO DAILY 07/06/20 08/03/23 08/02/23 History (Singulair) naratriptan 2.5 mg tablet 2.5 mg PO DAILY MRX1 07/06/20 08/03/23 08/02/23 History cyclosporine 0.05 % eye drops in a 1 drp ophthalmic (eye) Q12H 01/06/21 08/03/23 08/02/23 History dropperette (Restasis) dorzolamide 22.3 mg-timolol 6.8 1 drp ophthalmic (eye) BID 05/08/22 08/03/23 08/02/23 History mg/mL eye drops bupropion HCl 150 mg 24 hr tablet, 150 mg PO QAM 09/18/22 08/03/23 08/02/23 History extended release epinephrine 0.3 mg/0.3 mL 0.3 mg IM ONCE PRN anaphylaxis 09/18/22 08/03/23 Unknown History injection, auto-injector bimatoprost 0.01 % eye drops 1 drp ophthalmic (eye) BEDTIME 03/26/23 08/03/23 08/02/23 History (Lumigan) omalizumab 150 mg subcutaneous 150 mg subcut Q3W 05/02/23 08/03/23 08/02/23 History solution (Xolair) bisacodyl 5 mg tablet,delayed 10 mg PO BEDTIME PRN Constipation 08/03/23 08/03/23 Unknown History release (Dulcolax (bisacodyl)) fluticasone propionate 50 1 spray intranasal DAILY PRN 08/03/23 08/03/23 Unknown History mcg/actuation nasal Congestion spray,suspension gabapentin 800 mg tablet 800 mg PO TID 08/03/23 08/03/23 08/02/23 History Physical Exam Vital Signs and Narrative: Vital Signs: Last Vital Signs Temp 98.6 F 08/03/23 12:14 Pulse 80 08/03/23 12:14 Resp 16 08/03/23 12:14 BP 119/64 08/03/23 12:14 Pulse Ox 96 08/03/23 12:14 O2 Del Method Room Air 08/03/23 12:14 BMI result Body Mass Index 32.4 Const: General: cooperative, comfortable, alert and awake Nutritional Appearance: overweight Orientation/consciousness: patient oriented x3 Resp: Effort & Inspection: normal respiratory effort, able to speak in complete sentences, no respiratory distress and no use of accessory muscles Cardio: Rate: regular rate GI: Other: +BS; no significant tenderness on palpation, no guarding, no rebound Inspection: No distended Palpation (GI): Soft to palpation Neuro: General: patient oriented x3, moves all extremities and CN's II-XI intact bilaterally Extrem: General: Yes no pedal edema Results Labs 08/03/23 10:43 08/03/23 10:43 Labs: Laboratory Results - last 24 hr 08/03/23 08/03/23 08/03/23 10:43 12:14 13:06 MCV 83.6 MCH 26.0 L MCHC 31.2 RDW 14.6 Plt Count 388 MPV 10.5 Immature Gran % (Auto) Cancelled Neut % (Auto) Cancelled Lymph % (Auto) Cancelled Power % (Auto) Cancelled Eos % (Auto) Cancelled Baso % (Auto) Cancelled Lymph # (Auto) Cancelled Power # (Auto) Cancelled Eos # (Auto) Cancelled Baso # (Auto) Cancelled Abs Immat Gran (auto) Cancelled Absolute Neuts (auto) Cancelled Absolute Nucleated RBC 0.000 Nucleated RBC % (auto) 0.0 Neutrophils % (Manual) 94 H Band Neutrophils % 4 Lymphocytes % (Manual) 1 L Monocytes % (Manual) 1 L Abs Neuts (Manual) 12.3 H Lymphocytes # (Manual) 0.1 L Monocytes # (Manual) 0.1 Toxic Vacuolation PRESENT Platelet Estimate NORMAL Plt Morphology Comment NORMAL RBC Morphology NORMAL Hold Purple Top SEE NOTE Anion Gap 17 Estim Creat Clear Calc 70.6 Estimated GFR > 60 Random Glucose 145 H Lactic Acid 1.8 Calcium 10.5 H D Magnesium 1.9 Total Bilirubin 0.5 Direct Bilirubin 0.1 AST 23 ALT 15 Alkaline Phosphatase 114 Total Protein 9.7 H Albumin 4.8 Lipase 23 Urine Color Dark Yellow Urine Appearance Clear Urine pH 6.0 Ur Specific [place] 1.020 Urine Protein Trace Urine Glucose (UA) Negative Urine Ketones Trace Urine Blood Negative Urine Nitrite Positive H Ur Leukocyte Esterase Trace H Urine RBC 0-2 Urine WBC 0-5 Ur Squamous Epith Cells 0-2 Urine Bacteria None Seen Hyaline Casts 0-2 Imaging Radiologist's Impressions: Impressions Abdomen/Pelvis CT 08/03/23 10:30 IMPRESSION: Increasing hydronephrosis on the left now marked. Dilated ureter seen to the level of the midpelvis and below this is not adequately visualized. Etiology of hydronephrosis is uncertain. This may be due to scarring/postsurgical or therapy changes in the area. Ureteral calculus cannot be excluded due to significant spiculated densities in the pelvic sidewall on the left. Recommend urologic consultation Moderate hydronephrosis on the right appears mildly improved from previous. Nonobstructing renal calculi on the right are noted. Given the above findings consider renal nuclear medicine scintigraphy with Lasix. Once again prominent small bowel loops with a decompressed large bowel. Element of partial obstruction cannot be excluded here. Appearance is similar to previous. Continued soft tissue stranding and abnormal density within the pelvis without definitive increase from previous Thick-walled bladder with irregularity and soft tissue stranding is similar to previous. Again correlation needs to be made clinically Once again focal calcification seen inferior to the bladder which may be in the urethra. Again urologic consultation is recommended Fleischner guidelines were followed. Assessment and Plan (1) Intractable nausea and vomiting: Status: Acute Plan This is a 53-year-old female with history of recurrent kidney stones and bilateral hydronephrosis who presents to the emergency department with nausea and vomiting Nausea and vomiting will treat symptomatically with antiemetics, IVF clear liquid diet, ADAT possible pSBO less likely as patient passing gas and has had 2 BM today abdomen soft, non-distended CT changes appear similar to previous follow closely - if abdominal exam changes or pain worsens, will obtain surgical consult b/l hydronephrosis h/o b/l hydronephrosis follows with [facility] urology seen 07/13 - see full scanned note for details stone can't be ruled out on imaging will consult urology possible UTI UA nitritate positive received a dose of empiric ceftriaxone follow results of urine culture leukocytosis may be reactive from vomiting follow CBC mood continue baseline meds dvt ppx - lovenox attending - dr. neff Quality Stroke Does the patient have a stroke diagnosis?: No VTE Prior VTE?: No VTE Risk Level:: Medical - moderate - high VTE Device Contraindication: N/A - Device Ordered VTE Drug Contraindication: N/A - Med Ordered
--- NOTE | 2023-08-03 15:30 | PHA.MEDREC ---
Pharmacy Consult ? Medication Reconciliation Pharmacy has completed the medication reconciliation. Patient confirmed medications based on claim history and previous medical record. Patient reported no longer on metoprolol tartrate. Miranda Hernandez, AimeeD
[2023-08-03] MEDS: Lactated Ringers 1,000 ML 100 ML IVCONT (16:28)
[2023-08-03] MEDS: 0.9 % Sodium Chloride Flush 3 ML SYRINGE IVFLUSH (16:29)
[2023-08-03] MEDS: Enoxaparin Sodium 40 MG/0.4 ML SYRINGE SUBCUT (16:29)
[2023-08-03 16:31] VITALS: BP 129/55; PULSE 82; RESP 16; TEMP 37.1; O2SAT 96
--- NOTE | 2023-08-03 16:59 | P.CNUR_ITS ---
History of Present Illness Consult details Consult date: 08/03/23 Narrative: Yanci is a 53 y/o female who is here for evaluation for N/V and abd pain. Past Medical history bipolar, fibromyalgia, HLD, asthma, migraines, SBO, cholecystectomy, hysterectomy, oophorectomy, followed by [facility] for nephrolithiasis and chronic hydronephrosis, etiology unclear, was seen on 07/13 by [facility]. She states she had abrupt onset epigastric abdominal pain and n/v with some mild diarrhea did pass gas. Denies fevers, no recent abx use. She states her last kidney stone procedure was in May this year and she had a ureteral stent was about a week. Denies flank pain, dysuria or gross hematuria Review of Systems 2 Review of Systems: Yes all other systems are reviewed and are negative Constitutional: Constitutional: Reports no additional constitutional complaints Eyes: Eyes: Reports no additional eye complaints ENT: Reports system reviewed and no additional complaints, except as documented Cardiovascular: Cardiovascular: Denies dyspnea Respiratory: Respiratory: Denies cough and Denies dyspnea Gastrointestinal: Gastrointestinal: Reports no additional gastrointestinal complaints Genitourinary: Genitourinary: Reports no additional female genitourinary complaints Musculoskeletal: Musculoskeletal: Reports no additional musculoskeletal complaints Integumentary/Breasts: Skin/Breast: Denies rash and Denies unusual bruising Neurologic: Reports system reviewed and no additional complaints, except as documented Psychiatric: Psychiatric: Reports no additional psychiatric complaints Endocrine: Endocrine: Reports no additional endocrine complaints Hematologic/Lymphatic: Hematologic/Lymphatic: Reports no additional hematologic/lymphatic complaints Allergic/Immunologic: Allergic/Immunologic: Reports no additional allergic/immunologic complaints [facility] Past Medical History Medical History Osteopenia Sacroiliac joint pain Encounter for medication monitoring Palpitations Gastritis Fibromyalgia Hx of small bowel obstruction Abdominal pain Obesity (BMI 30-39.9) Bipolar depression Insomnia HLA-B27 spondyloarthropathy Osteoarthritis of multiple joints Vitamin D deficiency Migraine Allergic rhinitis Mild intermittent asthma without complication Pure hypercholesterolemia Primary osteoarthritis of right hip Lumbar spondylosis Family History Family History Father Kidney problem Diabetes Mother Kidney malignancy Diabetes Brother Asthma Diabetes Surgical History Surgical History S/P cystourethroscopy with dilation of urethral stricture (~07/21/20) History of esophagogastroduodenoscopy (EGD) Hx of unilateral oophorectomy Hx of colonoscopy Hx of cholecystectomy Hx of cystoscopy History of extraction of renal calculus Hx of removal of ovary History of carpal tunnel surgery History of hand surgery History of hysterectomy Social History Social History Housing: House Alcohol intake: never Patient Tobacco Use Status: Never used Tobacco e-Cigarette/Vaping Use: Never Used Second Hand Smoke Exposure: No Advance Directives: No Advance Directives Information Provided: Yes Nutrition Risks: No Nutritional Risk service: No Current occupational status: disabled Cognitive needs: No Hearing needs: No Vision needs: Yes Meds Allergies Allergy/AdvReac Type Severity Reaction Status Date / Time Penicillins [PENICILLINS] Allergy Severe HIVES Verified 08/03/23 09:58 Iodinated Contrast Media Allergy Intermediate HIVES Verified 08/03/23 09:58 [IV CONTRAST] peanut [PEANUTS] Allergy Intermediate HIVES Verified 08/03/23 09:58 shellfish derived Allergy Intermediate HIVES Verified 08/03/23 09:58 [SHELLFISH DERIVED] cat dander Allergy Mild unknown Verified 08/03/23 09:58 dog dander Allergy Mild unknown Verified 08/03/23 09:58 pollen extracts Allergy Mild runny Verified 08/03/23 09:58 nose, itchy eyes triamcinolone Allergy Unknown Unknown Verified 08/03/23 09:58 Active Medications: Current Medications Acetaminophen (Acetaminophen 325 Mg Tablet) 650 mg PO Q6H PRN PRN Reason: Pain, Mild (Pain Scale 1-3) Albuterol Sulfate (Albuterol Sulfate 90 Mcg 8 Gm Inhaler) 2 puff INHALE Q4H PRN PRN Reason: Shortness Of Breath Or Wheezing Baclofen (Baclofen 20 Mg Tablet) 20 mg PO BID [facility] Bupropion HCl (Bupropion Hcl Xl 150 Mg Tab.Er.24h) 150 mg PO DAILY [facility] Clonazepam (Clonazepam 1 Mg Tablet) 1 mg PO BID [facility] Dorzolamide/Timolol (Dorzolamide/Timolo 2.23%/0.68% 10 Ml Drbtl) 1 drop EYE- BOTH BID [place] Duloxetine HCl (Duloxetine Hcl 60 Mg Capsule.Dr) 60 mg PO DAILY [facility] Enoxaparin Sodium (Enoxaparin Sodium 40 Mg/0.4 Ml Syringe) 40 mg SUBCUT Q24H [facility] Last Admin: 08/03/23 16:29 Dose: 40 mg Famotidine (Famotidine 20 Mg Tablet) 20 mg PO BEDTIME [facility] Fluticasone Propionate (Fluticasone Propionate Nasal 16 Gm Linn) 1 spray NOSTRIL-B DAILY PRN PRN Reason: Congestion Fluticasone Propionate (Fluticasone Propionate 250 Mcg Blst.W.Dev) 1 puff INHALE RBID [facility] Gabapentin (Gabapentin 400 Mg Capsule) 800 mg PO TID [facility] Lactated Ringer's (Lr) 1,000 mls @ 100 mls/hr IVCONT .Q10H [facility] Last Admin: 08/03/23 16:28 Dose: 100 mls/hr Latanoprost (Latanoprost 0.005 % Ophth Cony 2.5 Ml Drops) 1 drop EYE-BOTH BEDTIME [facility] Morphine Sulfate (Morphine Sulfate 4 Mg/Ml Cartridge) 2 mg IVPUSH Q4H PRN; Protocol PRN Reason: Pain, Severe (Pain Scale 7-10) Non-Formulary Medication (Cyclosporine [Restasis]) 1 drop EYE-BOTH Q12H [facility] Omeprazole (Omeprazole 20 Mg Capsule.Dr) 20 mg PO DAILY [facility] Ondansetron HCl (Ondansetron Hcl 4 Mg/2 Ml Vial) 4 mg IVPUSH Q8H PRN PRN Reason: Nausea and Vomiting Sodium Chloride (0.9 % Sodium Chloride Flush 3 Ml Syringe) 3 ml IVFLUSH QSHIFT [facility] Last Admin: 08/03/23 16:29 Dose: 3 ml Zolpidem Tartrate (Zolpidem Tartrate 5 Mg Tablet) 10 mg PO BEDTIME PRN PRN Reason: Insomnia Home Medications Medication Instructions Recorded Confirmed Last Taken Type cetirizine 10 mg tablet (Zyrtec) 10 mg PO DAILY 07/06/20 08/03/23 08/02/23 History clonazepam 1 mg tablet (Klonopin) 1 mg PO BID 07/06/20 08/03/23 08/02/23 History montelukast 10 mg tablet 10 mg PO DAILY 07/06/20 08/03/23 08/02/23 History (Singulair) naratriptan 2.5 mg tablet 2.5 mg PO DAILY MRX1 07/06/20 08/03/23 08/02/23 History cyclosporine 0.05 % eye drops in a 1 drp ophthalmic (eye) Q12H 01/06/21 08/03/23 08/02/23 History dropperette (Restasis) dorzolamide 22.3 mg-timolol 6.8 1 drp ophthalmic (eye) BID 05/08/22 08/03/23 08/02/23 History mg/mL eye drops bupropion HCl 150 mg 24 hr tablet, 150 mg PO QAM 09/18/22 08/03/23 08/02/23 History extended release epinephrine 0.3 mg/0.3 mL 0.3 mg IM ONCE PRN anaphylaxis 09/18/22 08/03/23 Unknown History injection, auto-injector bimatoprost 0.01 % eye drops 1 drp ophthalmic (eye) BEDTIME 03/26/23 08/03/23 08/02/23 History (Lumigan) omalizumab 150 mg subcutaneous 150 mg subcut Q3W 05/02/23 08/03/23 08/02/23 History solution (Xolair) bisacodyl 5 mg tablet,delayed 10 mg PO BEDTIME PRN Constipation 08/03/23 08/03/23 Unknown History release (Dulcolax (bisacodyl)) fluticasone propionate 50 1 spray intranasal DAILY PRN 08/03/23 08/03/23 Unknown History mcg/actuation nasal Congestion spray,suspension gabapentin 800 mg tablet 800 mg PO TID 08/03/23 08/03/23 08/02/23 History Physical Exam 2 Vital Signs: Vital Signs: Last Vital Signs Temp 98.7 F 08/03/23 16:31 Pulse 82 08/03/23 16:31 Resp 16 08/03/23 16:31 BP 129/55 L 08/03/23 16:31 Pulse Ox 96 08/03/23 16:31 O2 Del Method Room Air 08/03/23 16:31 BMI result Body Mass Index 32.4 Const: General: cooperative, healthy appearing and no acute distress O rientation/consciousness: patient oriented x3 HEENT: Head: Yes normal to inspection, Yes normocephalic and Yes atraumatic Eyes: Conjunctivae: conjunctivae normal Neck: Neck: Yes normal visual inspection and Yes trachea midline Chest: Chest palpation & inspection: normal inspection of the chest Resp: Effort & Inspection: normal respiratory effort Cardio: Rate: regular rate GI: Inspection: Yes normal to inspection Palpation (GI): Soft to palpation : General: No no CVA tenderness Back/Spine/Pelvis: Back: No no CVA tenderness Skin: General skin exam: no rashes or lesions noted Neuro: General: patient oriented x3 Psych: Appearance: grossly normal Results Labs 08/03/23 10:43 08/03/23 10:43 Labs: Abnormal lab results 08/03/23 08/03/23 Range/Units 10:43 12:14 WBC 12.6 H (4.8-10.8) X10*3/uL MCH 26.0 L (27.0-33.0) pg Neutrophils % (Manual) 94 H (45-73) % Lymphocytes % (Manual) 1 L (20-40) % Monocytes % (Manual) 1 L (2-11) % Abs Neuts (Manual) 12.3 H (2.0-8.3) X10*3/uL Lymphocytes # (Manual) 0.1 L (1.2-4.9) X10*3/uL Random Glucose 145 H (60-115) mg/dL Calcium 10.5 H D (8.4-10.2) mg/dL Total Protein 9.7 H (6.5-8.0) g/dL Urine Nitrite Positive H (Negative) Ur Leukocyte Esterase Trace H (Negative) Short CBC 08/03/23 Range/Units 10:43 WBC 12.6 H (4.8-10.8) X10*3/uL Hgb 13.8 (12.0-16.0) g/dl Hct 44.3 (37.0-47.0) % Plt Count 388 (160-400) X10*3/uL BMP 08/03/23 10:43 Sodium 137 Potassium 4.5 Chloride 103 Carbon Dioxide 22 BUN 14 Creatinine 0.95 Calcium 10.5 H D Liver Function 08/03/23 Range/Units 10:43 Total Bilirubin 0.5 (0.0-1.0) mg/dL Direct Bilirubin 0.1 (0.0-0.5) mg/dL AST 23 (5-31) U/L ALT 15 (0-31) U/L Alkaline Phosphatase 114 (39-117) U/L Albumin 4.8 (3.5-5.0) g/dL Urine 08/03/23 Range/Units 12:14 Urine Color Dark Yellow Urine Appearance Clear Urine pH 6.0 (5.0-9.0) Ur Specific [place] 1.020 (1.005-1.025) Urine Protein Trace (Neg-Trace) mg/dL Urine Glucose (UA) Negative (Negative) mg/dL All other labs normal. Imaging Additional studies: Date of Service: 08/03/23 EXAMINATION: CT ABDOMEN AND PELVIS WITHOUT CONTRAST CLINICAL INFORMATION: Pain, vomiting COMPARISON: 02/13/2023 TECHNIQUE: Multidetector volumetric imaging was performed from the superior aspect of the liver through the pubic symphysis. Sagittal and coronal reformatted images were obtained on the technologist's workstation. This CT examination was performed using dose optimization techniques as appropriate, variously including the following: *Automated exposure control *Adjustment of mA and/or kV according to patient size (this includes techniques or standardized protocols for targeted exams where dose is matched to indication/reason for exam; i.e. extremities or head) *Use of iterative reconstruction technique DLP: 507 mGy-cm FINDINGS: LUNG BASES: The visualized lung bases are unremarkable. LIVER, GALLBLADDER, AND BILIARY TREE: The liver is normal in size, shape, and attenuation. No focal hepatic lesion or biliary ductal dilatation is present. Status post cholecystectomy PANCREAS: Unremarkable. SPLEEN: Unremarkable. ADRENAL GLANDS: Unremarkable. Kidneys Findings suggest mild hydronephrosis on the right foot improved from previous. Renal calculi on the right are noted Increasing hydronephrosis on the left. The ureter is also prominent to the pelvis at which time it is poorly visualized. There are calcifications and possible surgical sutures/postsurgical change along the path of the ureter here. I clearly I believe are outside the ureter but given the hydronephrosis I cannot rule out a calcification within the distal left ureter. BLADDER: Bladder appears decompressed thick-walled with surrounding soft tissue stranding similar to previous. Calcification inferior to the bladder. GASTROINTESTINAL TRACT: Once again significant soft tissue stranding around the perirectal tissues in rectosigmoid. No significant change from previous. Surgical clips in the region. The large bowel is decompressed. Once again demonstrating prominent small bowel loops here. Appearances similar to previous. ABDOMINAL WALL: No significant hernia is appreciated. LYMPH NODES: Prominent lymph nodes in the left greater than right groin are once again seen. No bulky adenopathy or significant change in the abdomen pelvis VASCULAR: Atherosclerotic changes are noted. PELVIC VISCERA: As described soft tissue stranding in the pelvis. Similar to previous. This also involves the presacral region and around the rectosigmoid OSSEOUS STRUCTURES: Significant Degenerative change right hip noted IMPRESSION: Increasing hydronephrosis on the left now marked. Dilated ureter seen to the level of the midpelvis and below this is not adequately visualized. Etiology of hydronephrosis is uncertain. This may be due to scarring/postsurgical or therapy changes in the area. Ureteral calculus cannot be excluded due to significant spiculated densities in the pelvic sidewall on the left. Recommend urologic consultation Moderate hydronephrosis on the right appears mildly improved from previous. Nonobstructing renal calculi on the right are noted. Given the above findings consider renal nuclear medicine scintigraphy with Lasix. Once again prominent small bowel loops with a decompressed large bowel. Element of partial obstruction cannot be excluded here. Appearance is similar to previous. Continued soft tissue stranding and abnormal density within the pelvis without definitive increase from previous Thick-walled bladder with irregularity and soft tissue stranding is similar to previous. Again correlation needs to be made clinically Once again focal calcification seen inferior to the bladder which may be in the urethra. Again urologic consultation is recommended Assessment and Plan (1) Acute UTI: Status: Acute (2) Abdominal pain: Qualifiers: Abdominal location: epigastric Qualified Code(s): R10.13 - Epigastric pain Status: Acute (3) Renal calculi: Status: Acute (4) Hydronephrosis, bilateral: Status: Acute Plan No surgical intervention planned at this time from perspective FU with [facility] Procedures Date of Service Date of Service: 08/03/23
--- NOTE | 2023-08-03 19:02 | PC.NURSE ---
pt denies any nausea w 4/10 abd pain, declined any PRN medication at this time. pt pending bed assignment.
[2023-08-03 19:04] VITALS: BP 114/54; PULSE 79; RESP 14; TEMP 36.9; O2SAT 96
[2023-08-03 21:27] VITALS: BP 140/68; PULSE 63; RESP 18; TEMP 36.4; O2SAT 95
[2023-08-03 21:29] VITALS: BMI 34.2
[2023-08-03] MEDS: clonazePAM 1 MG TABLET PO (21:54)
[2023-08-03] MEDS: Gabapentin 400 MG CAPSULE 800 MG PO (21:54)
[2023-08-03] MEDS: Baclofen 20 MG TABLET PO (21:54)
[2023-08-03] MEDS: Famotidine 20 MG TABLET PO (21:54)
[2023-08-03] MEDS: Dorzolamide/Timolo 2.23%/0.68% 10 ML DRBTL 1 DROP EYE-BOTH (22:26)
[2023-08-03] MEDS: Latanoprost 0.005 % Ophth Sol 2.5 ML DROPS 1 DROP EYE-BOTH (22:26)
[2023-08-04] MEDS: Lactated Ringers 1,000 ML 100 ML IVCONT (01:09)
[2023-08-04 04:00] VITALS: BP 141/69; PULSE 58; RESP 16; TEMP 36.5; O2SAT 97
[2023-08-04 05:26] LABS: MANUAL DIFF FLAG NO
[2023-08-04 05:33] LABS: Basophils Absolute Auto 0.1 X10*3/uL (0.0-0.2); Basophils Percent Auto 0.5 % (0-2); Eosinophils Absolute Auto 0.2 X10*3/uL (0.0-0.4); Eosinophils Percent Auto 1.8 % (0-4); Hematocrit 33.8 % (37.0-47.0); Hemoglobin 10.6 g/dl (12.0-16.0); Imm Gran Abs Auto 0.03 X10*3/uL (0.00-0.03); Imm Gran Pct Auto 0.3 % (0.0-0.4); Lymphocytes Absolute Auto 1.1 X10*3/uL (1.2-4.9); Lymphocytes Percent Auto 12.4 % (20-40); Mean Corpuscular HGB Conc 31.4 g/dl (31.0-35.0); Mean Corpuscular Hemoglobin 26.4 pg (27.0-33.0); Mean Corpuscular Volume 84.3 fL (80.0-98.0); Mean Platelet Volume 10.1 fL (9.4-12.3); Monocytes Absolute Auto 0.7 X10*3/uL (0.1-1.2); Monocytes Percent Auto 7.1 % (2-11); Neutrophils Absolute Auto 7.1 x10*3/uL (2.0-8.3); Neutrophils Percent Auto 77.9 % (45-73); Platelet Count 345 X10*3/uL (160-400); Red Blood Count 4.01 X10*6/uL (4.20-5.50); Red Cell Distribution Width 14.6 % (11.0-16.0); White Blood Count 9.1 X10*3/uL (4.8-10.8)
[2023-08-04 05:48] LABS: Anion Gap 15 (12-20); Blood Urea Nitrogen 12 mg/dL (9-16); Calcium 9.3 mg/dL (8.4-10.2); Carbon Dioxide 22 mmol/L (22-29); Chloride 109 mmol/L (96-108); Creatinine Clr Calc Pharmacy 82.1; Estimated Glomerular Filt Rate > 60; Glucose Random 101 mg/dL (60-115); Potassium 3.7 mmol/L (3.3-5.1); Sodium 142 mmol/L (135-145)
[2023-08-04 08:00] VITALS: BP 146/72; PULSE 86; RESP 20; TEMP 36.3; O2SAT 96
[2023-08-04] MEDS: Omeprazole 20 MG CAPSULE.DR PO (08:53)
[2023-08-04] MEDS: Baclofen 20 MG TABLET PO (08:54)
[2023-08-04] MEDS: clonazePAM 1 MG TABLET PO (08:54)
[2023-08-04] MEDS: buPROPion HCl XL 150 MG TAB.ER.24H PO (08:54)
[2023-08-04] MEDS: DULoxetine HCl 60 MG CAPSULE.DR PO (08:54)
[2023-08-04] MEDS: Gabapentin 400 MG CAPSULE 800 MG PO (08:54)
[2023-08-04] MEDS: Dorzolamide/Timolo 2.23%/0.68% 10 ML DRBTL 1 DROP EYE-BOTH (08:54)
[2023-08-04 09:04] VITALS: PULSE 86; RESP 16; O2SAT 98
[2023-08-04] MEDS: Fluticasone Propionate 250 MCG BLST.W.DEV 1 PUFF INHALE (09:04)
--- NOTE | 2023-08-04 12:05 | P.DS_ITS ---
DS: Providers Provider Date of Service: 08/04/23 Date of admission: 08/03/23 15:07 Date of discharge: 08/04/23 Primary care physician: Christ Goodwin MD Consults: 08/03/23 15:10 Consult to Urology Routine Consulting Provider: Divine Nolen Reason for consultation: b/l hydro; recurrent stones Has provider been notified: No Attending physician on discharge: Sarabjit Neff Discharging clinician: Nalini Wick DS: Diagnosis Discharge Diagnosis (1) Abdominal pain: Status: Acute (2) Hydronephrosis, bilateral: Status: Acute (3) Acute UTI: Status: Acute (4) Renal calculi: Status: Acute DS: Summary Hospital Course Hospital Course: From H&P on day of admission This is a 53 year female with history of kidney stones who presents to the emergency department with nausea and vomiting. Patient states around 02:00 o'clock this morning she woke up with nausea and vomiting. She has chills and associated upper abdominal pain. She has also had 2 episodes of diarrhea. In the emergency room her workup was significant for leukocytosis of 12.6. CT scan of the abdomen showed bilateral hydronephrosis, patient has history of chronic hydronephrosis and follows with [facility]. CT scan can not rule out ureteral calculus. CT scan also showed prominent small bowel loops with decompressed large bowel and an element of partial obstruction could not be excluded. This appears similar to previous. Urinalysis was nitriate positive although patient denied any dysuria. Her abdominal pain was primarily associated in the epigastric and left upper abdomen. She received a dose of ceftriaxone to cover for possible urinary tract infection and received nausea medication. She continues to have nausea and she will be admitted overnight for observation. Nausea and vomiting. resolved with conservative management. patient has no abdominal pain and is tolerating a regular diet and is eager to return home. possible pSBO less likely. patient has had BM this morning and on day of admission. changes on CT similar to previous. abdominal exam unremarkable, no distention. Tolerating a regular diet without abdominal pain. b/l hydronephrosis, chronic. has no urinary symptoms and no CVA tenderness. seen by urology, no further intervention required. Recommend outpatient follow-up with primary urologist at [facility]. possible UTI. Urinalysis was relatively unremarkable but was nitrite positive. Urine culture sent and growing group B strep less than 10,000 colony-forming units as previous. No urinary symptoms, no need for antibiotics at this time. leukocytosis. Resolved, likely reactive due to vomiting. Time Attestation Discharge coordination time: Greater than 30 minutes Quality: Safe Use of Opioids Does Pt have an Active Cancer Diagnosis on the Problem List?: No Quality: Stroke Does the patient have a stroke diagnosis?: No Physical Exam Vital Signs: Vital Signs: Last Vital Signs Temp 97.4 F 08/04/23 08:00 Pulse 86 08/04/23 09:04 Resp 16 08/04/23 09:04 BP 146/72 H 08/04/23 08:00 Pulse Ox 96 08/04/23 08:00 O2 Del Method Room Air 08/04/23 08:00 BMI result Body Mass Index 34.2 Const: General: cooperative, healthy appearing, comfortable, no acute distress, alert and awake Nutritional Appearance: overweight Orientation/consciousness: patient oriented x3 Resp: Effort & Inspection: normal respiratory effort, able to speak in c omplete sentences, no respiratory distress and no use of accessory muscles Cardio: Rate: regular rate GI: Other: +BS. no guarding, no rebound Inspection: No distended Palpation (GI): Soft to palpation and nontender Neuro: General: patient oriented x3, moves all extremities and CN's II-XI intact bilaterally Extrem: General: Yes no pedal edema DS: Data Data Completed and Pending Labs on day of discharge: Laboratory Results - last 24 hr 08/03/23 08/03/23 08/04/23 12:14 13:06 05:08 WBC 9.1 RBC 4.01 L D Hgb 10.6 L D Hct 33.8 L D MCV 84.3 MCH 26.4 L MCHC 31.4 RDW 14.6 Plt Count 345 MPV 10.1 Immature Gran % (Auto) 0.3 Neut % (Auto) 77.9 H Lymph % (Auto) 12.4 L [place] % (Auto) 7.1 Eos % (Auto) 1.8 Baso % (Auto) 0.5 Lymph # (Auto) 1.1 L [place] # (Auto) 0.7 Eos # (Auto) 0.2 Baso # (Auto) 0.1 Abs Immat Gran (auto) 0.03 Absolute Neuts (auto) 7.1 Absolute Nucleated RBC 0.000 Nucleated RBC % (auto) 0.0 Sodium 142 Potassium 3.7 Chloride 109 H Carbon Dioxide 22 Anion Gap 15 BUN 12 Creatinine 0.84 Estim Creat Clear Calc 82.1 Estimated GFR > 60 Random Glucose 101 Lactic Acid 1.8 Calcium 9.3 D Urine Color Dark Yellow Urine Appearance Clear Urine pH 6.0 Ur Specific [place] 1.020 Urine Protein Trace Urine Glucose (UA) Negative Urine Ketones Trace Urine Blood Negative Urine Nitrite Positive H Ur Leukocyte Esterase Trace H Urine RBC 0-2 Urine WBC 0-5 Ur Squamous Epith Cells 0-2 Urine Bacteria None Seen Hyaline Casts 0-2 Discharge Plan Discharge Anticipated Discharge Date/Time: 08/04/23 12:22 Patient Disposition: Home, Self-Care Discharge Diagnosis: nausea and vomiting UTI ruled out b/l hydronephrosis Referrals: Christ Goodwin MD [Primary Care Provider] - 1 Week Discharge Medications: Continued duloxetine 60 mg capsule,delayed release(DR/EC) 60 mg PO DAILY Qty: 90 1RF zolpidem [Ambien] 10 mg tablet 10 mg PO BEDTIME PRN (Reason: Insomnia) 30 Days Qty: 30 0RF albuterol sulfate 90 mcg/actuation HFA aerosol inhaler 2 puff inhalation Q4-6H PRN (Reason: Shortness Of Breath Or Wheezing) Qty: 8.5 3RF Flovent HFA 220 mcg/actuation HFA aerosol inhaler 1 puff inhalation BID Qty: 12 3RF atorvastatin 20 mg tablet 20 mg PO DAILY 90 Days Qty: 90 1RF baclofen 20 mg tablet 20 mg PO BID 30 Days Qty: 60 2RF Rx Instructions: take 1/2 of the pill if there are side effects with full dose. tramadol 50 mg tablet 50 mg PO BID Qty: 60 3RF ondansetron 4 mg tablet,disintegrating 4 mg PO Q8H 3 Days Qty: 9 0RF gabapentin 800 mg tablet 800 mg PO TID bisacodyl [Dulcolax (bisacodyl)] 5 mg tablet,delayed release (DR/EC) 10 mg PO BEDTIME PRN (Reason: Constipation) fluticasone propionate 50 mcg/actuation spray,suspension 1 spray intranasal DAILY PRN (Reason: Congestion) naratriptan 2.5 mg tablet 2.5 mg PO DAILY MRX1 Rx Instructions: take 1 tab at onset of headache; if no relief may repeat 1 tab after at least 4 hrs; max = 2 tabs/24 hrs PO clonazepam [Klonopin] 1 mg tablet 1 mg PO BID montelukast [Singulair] 10 mg tablet 10 mg PO DAILY cetirizine [Zyrtec] 10 mg tablet 10 mg PO DAILY Restasis 0.05 % dropperette 1 drp ophthalmic (eye) Q12H Xolair 150 mg recon soln 150 mg subcut Q3W cholecalciferol (vitamin D3) 50 mcg (2,000 unit) capsule 50 mcg PO DAILY Qty: 90 3RF dorzolamide-timolol 22.3-6.8 mg/mL drops 1 drp ophthalmic (eye) BID pantoprazole 40 mg tablet,delayed release (DR/EC) 40 mg PO DAILY Qty: 90 2RF Rx Instructions: take one tablet half an hour before breakfast famotidine 20 mg tablet 20 mg PO BEDTIME 90 Days Qty: 90 1RF bupropion HCl 150 mg tablet extended release 24 hr 150 mg PO QAM epinephrine 0.3 mg/0.3 mL auto-injector 0.3 mg IM ONCE PRN (Reason: anaphylaxis) [place] 0.01 % drops 1 drp ophthalmic (eye) BEDTIME No Action (DME) walker Misc See Rx Instructions .MEDSUPPLY Qty: 1 0RF Rx Instructions: Folding Front wheeled walker (DME) SHOWER CHAIR See Rx Instructions .Route .MEDSUPPLY Qty: 1 0RF Rx Instructions: As directed Discharge Orders: Discharge Order (Routine); Ordered 08/04/23 Ordered By: Nalini Wick Activity on Discharge: As tolerated Stand Alone Forms: Patient Portal Discharge page Care Plan Goals: see below Health Concerns: nausea and vomiting - resolved UTI ruled out Plan of Treatment: follow up as scheduled with [facility] Urology follow up with PCP as needed Assessment: see discharge summary Discharge Date/Time: 08/04/23 14:17
--- NOTE | 2023-08-04 14:32 | MHC.CM.PN ---
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
== END 2023-08-04 14:17 | disposition home or self-care (01) ==
LOC: HO.ED 13:54 → HO.EDOVER 15:18 → HO.S3 19:55
PROVIDERS: Admitting Provider Physician Assistant Medical; Emergency Provider Emergency Medicine; PCP Internal Medicine; Visit Provider Physician Assistant Medical
DX: N13.2 Hydronephrosis with renal and ureteral calculous obstruction (principal); R82.90 Unspecified abnormal findings in urine; R10.13 Epigastric pain; R11.2 Nausea with vomiting, unspecified; D72.829 Elevated white blood cell count, unspecified; R19.7 Diarrhea, unspecified; R10.30 Lower abdominal pain, unspecified; Z79.899 Other long term (current) drug therapy
CPT/HCPCS: 36415; 74176; 80048; 80076; 81001; 83605; 83690; 83735; 84484; 85007; 85025; 85027; 87040; 87086; 87147; 93005; 94640; 96361; 96365; 96372; 96375; 99221; 99285; J0696; J1200; J1650; J2270; J2765; J7120

== ENCOUNTER → 2023-08-03 09:57 | Outpatient (BNV) | payer OTHER, SELFPAY | PROVIDERS: Emergency Provider Emergency Medicine; PCP Internal Medicine; Visit Provider Internal Medicine | DX: R10.9 Unspecified abdominal pain (principal) | CPT/HCPCS: 93010 ==

== ENCOUNTER → 2023-08-03 15:07 | Outpatient (BNV) | payer OTHER, SELFPAY | PROVIDERS: Admitting Provider Physician Assistant Medical; Emergency Provider Emergency Medicine; PCP Internal Medicine; Visit Provider Urology | DX: N39.0 Urinary tract infection, site not specified (principal); R10.13 Epigastric pain; N20.0 Calculus of kidney; N13.30 Unspecified hydronephrosis | CPT/HCPCS: 99222 ==

== ENCOUNTER → 2023-08-03 15:07 | Outpatient (BNV) | payer OTHER, SELFPAY | PROVIDERS: Admitting Provider Physician Assistant Medical; Emergency Provider Emergency Medicine; PCP Internal Medicine; Visit Provider Physician Assistant Medical | DX: R10.13 Epigastric pain (principal); N13.30 Unspecified hydronephrosis; N39.0 Urinary tract infection, site not specified; N20.0 Calculus of kidney | CPT/HCPCS: 99223; 99239 ==

== ENCOUNTER 2023-08-09 14:50 | Outpatient (AMB) | payer OTHER, SELFPAY ==
--- NOTE | 2023-08-09 14:54 | MHC.OFFVIS ---
Intake Intake Visit Reasons: Preop RT CHRISTEL 08/15/23 NE Intake Note: Yanci is a 53 year old female who presents today for a pre op appointment of her RT CHRISTEL 08/15/23 NE. Allergies Penicillins [PENICILLINS] Allergy (Severe, Verified 08/09/23 14:54) HIVES Iodinated Contrast Media [IV CONTRAST] Allergy (Intermediate, Verified 08/09/23 14:54) HIVES peanut [PEANUTS] Allergy (Intermediate, Verified 08/09/23 14:54) HIVES shellfish derived [SHELLFISH DERIVED] Allergy (Intermediate, Verified 08/09/23 14:54) HIVES cat dander Allergy (Mild, Verified 08/09/23 14:54) unknown dog dander Allergy (Mild, Verified 08/09/23 14:54) unknown pollen extracts Allergy (Mild, Verified 08/09/23 14:54) runny nose, itchy eyes triamcinolone Allergy (Unknown, Verified 08/09/23 14:54) Unknown HPI Preop RT CHRISTEL 08/15/23 NE HPI Details 53-year-old female who presents in the office today for her preoperative history and physical exam prior to a right total hip arthroplasty to be performed on 08/15/[address] Zepeda. Patient has an allergy history, as follows: -Penicillin; hives -Iodinated contrast media; hives -Peanuts; hives -Shellfish; hives -Cat dander; unknown -Dog dander; unknown -Pollen extracts; runny nose; itchy eyes -Triamcinolone; unknown Patient is currently taking, as follows: -albuterol sulfate 90 mcg/actuation aerosol inhaler Q4-6H PRN -Atorvastatin 20 mg PO daily -Baclofen 20 mg PO BID -Bimatoprost 0.01% 1 drop ophthalmic bedtime -Bisacodyl 10 mg PO bedtime PRN -Bupropion HCI 150 mg PO QAM -Cetirizine 10 mg PO daily -Cholecalciferol 50 mcg PO daily -Clonazepam 1 mg PO BID -Cyclosporine 0.05% 1 drop ophthalmic BID -Dorzolamide-timolol 22.3-6.8 mg/mL 1 drop ophthalmic BID -Duloxetine 60 mg PO daily -Epinephrine 0.3 mg IM once PRN -Famotidine 20 mg PO Bedtime -Fluticasone propionate 50 mcg/actuation 1 spray intranasal daily PRN -Fluticasone propionate 220mcg/actuation 1 puff inhalation BID -Gabapentin 800 mg PO TID -Montelukast 10 mg PO Daily -Naratriptan 2.5 mg PO daily MRx1 -Omalizumab 150 mg subcut Q3W -Ondansetron 4 mg PO Q8H -Pantoprazole 40 mg PO QAM -Tramadol 50 mg PO BID -Zolpidem 10 mg PO Bedtime PRN Patient has a medical history, as follows: -Hydronephrosis, bilateral -Renal calculi -Osteopenia -Sacroiliac joint pain s/p SJSI 02/10/2022 -Palpitations -Gastritis -Fibromyalgia -Hx of small bowel obstruction 2010,2013 -Abdominal pain -Obesity (BMI 30-39.9) -Bipolar depression -Insomnia -HLA-B27 spondyloarthropathy -Osteoarthritis of multiple joints -Vitamin D deficiency -Migraine -Allergic rhinitis -Mild intermittent asthma without complication -Pure hypercholesterolemia -Primary osteoarthritis of right hip -Lumbar spondylosis Patient has a surgical history, as follows: -S/P cystourethroscopy with dilation of urethral stricture Urology in [place] ~07/21/20 -History of esophagogastroduodenoscopy (EGD) -Hx of unilateral oophorectomy left ~2013 -Hx of colonoscopy 2017 -Hx of cholecystectomy -Hx of cystoscopy 07/08/2020 -History of extraction of renal calculus -Hx of removal of ovary left -History of carpal tunnel surgery -History of hysterectomy 1996 PFS Medical History Osteopenia Sacroiliac joint pain Encounter for medication monitoring Palpitations Gastritis Fibromyalgia Hx of small bowel obstruction Abdominal pain Obesity (BMI 30-39.9) Bipolar depression Insomnia HLA-B27 spondyloarthropathy Osteoarthritis of multiple joints Vitamin D deficiency Migraine Allergic rhinitis Mild intermittent asthma without complication Pure hypercholesterolemia Primary osteoarthritis of right hip Lumbar spondylosis Surgical History S/P cystourethroscopy with dilation of urethral stricture (~07/21/20) History of esophagogastroduodenoscopy (EGD) Hx of unilateral oophorectomy Hx of colonoscopy Hx of cholecystectomy Hx of cystoscopy History of extraction of renal calculus Hx of removal of ovary History of carpal tunnel surgery History of hand surgery History of hysterectomy Family History Father Kidney problem Diabetes Mother Kidney malignancy Diabetes Brother Asthma Diabetes Social History Household Members: Spouse Housing: House Alcohol intake: never Patient Tobacco Use Status: Never used Tobacco e-Cigarette/Vaping Use: Never Used Second Hand Smoke Exposure: No service: No Current occupational status: disabled Cognitive needs: No Hearing needs: No Vision needs: Yes Review of Systems Const All systems reviewed & are unremarkable except as noted in HPI and below Physical Exam Const General: cooperative, healthy appearing, comfortable, no acute distress, well developed, alert and awake Orientation/consciousness: patient oriented x3 HEENT Head: Yes normal to inspection, Yes normocephalic and Yes atraumatic Eyes General: appearance normal, both eyes and all related structures EOM: EOMs intact bilaterally Neck Neck: Yes normal visual inspection and Yes no lymphadenopathy Resp Effort & Inspection: normal respiratory effort and able to speak in complete sentences Cardio Jugular venous distension: no JVD Rate: regular rate Peripheral pulses: Peripheral pulses 2+ throughout GI Inspection: Yes normal to inspection Palpation (GI): Soft to palpation Skin General skin exam: no rashes or lesions noted Rashes: no rashes Neuro General: patient oriented x3 Extrem Other: Right Hip: Skin is clean, dry, and intact. Right hip with + Stinchfield +Impingement + Trendelenberg gait Psych Appearance: grossly normal Mental Status: mental status grossly normal Affect: normal affect Attitude: cooperative Assessment & Plan Assessment & Plan (1) Osteoarthritis of right hip: Code(s): M16.11 - Unilateral primary osteoarthritis, right hip Qualifiers: Osteoarthritis type: primary Qualified Code(s): M16.11 - Unilateral primary osteoarthritis, right hip (2) Fibromyalgia: Code(s): M79.7 - Fibromyalgia (3) Bipolar depression: Code(s): F31.9 - Bipolar disorder, unspecified (4) Right sciatic nerve pain: Code(s): M54.31 - Sciatica, right side Plan Ms. Gene Tate is a 53-year-old female who presents in the office today for her preoperative history and physical exam prior to a right total hip arthroplasty to be performed on 08/15/[address] Zepeda. Patient has an allergy history, as follows: -Penicillin; hives -Iodinated contrast media; hives -Peanuts; hives -Shellfish; hives -Cat dander; unknown -Dog dander; unknown -Pollen extracts; runny nose; itchy eyes -Triamcinolone; unknown Patient is currently taking, as follows: -albuterol sulfate 90 mcg/actuation aerosol inhaler Q4-6H PRN -Atorvastatin 20 mg PO daily -Baclofen 20 mg PO BID -Bimatoprost 0.01% 1 drop ophthalmic bedtime -Bisacodyl 10 mg PO bedtime PRN -Bupropion HCI 150 mg PO QAM -Cetirizine 10 mg PO daily -Cholecalciferol 50 mcg PO daily -Clonazepam 1 mg PO BID -Cyclosporine 0.05% 1 drop ophthalmic BID -Dorzolamide-timolol 22.3-6.8 mg/mL 1 drop ophthalmic BID -Duloxetine 60 mg PO daily -Epinephrine 0.3 mg IM once PRN -Famotidine 20 mg PO Bedtime -Fluticasone propionate 50 mcg/actuation 1 spray intranasal daily PRN -Fluticasone propionate 220mcg/actuation 1 puff inhalation BID -Gabapentin 800 mg PO TID -Montelukast 10 mg PO Daily -Naratriptan 2.5 mg PO daily MRx1 -Omalizumab 150 mg subcut Q3W -Ondansetron 4 mg PO Q8H -Pantoprazole 40 mg PO QAM -Tramadol 50 mg PO BID -Zolpidem 10 mg PO Bedtime PRN Patient has a medical history, as follows: -Hydronephrosis, bilateral -Renal calculi -Osteopenia -Sacroiliac joint pain s/p SJSI 02/10/2022 -Palpitations -Gastritis -Fibromyalgia -Hx of small bowel obstruction -Abdominal pain -Obesity (BMI 30-39.9) -Bipolar depression -Insomnia -HLA-B27 spondyloarthropathy -Osteoarthritis of multiple joints -Vitamin D deficiency -Migraine -Allergic rhinitis -Mild intermittent asthma without complication -Pure hypercholesterolemia -Primary osteoarthritis of right hip -Lumbar spondylosis Patient has a surgical history, as follows: -S/P cystourethroscopy with dilation of urethral stricture Urology in [place] ~07/21/20 -History of esophagogastroduodenoscopy (EGD) -Hx of unilateral oophorectomy left ~2013 -Hx of colonoscopy 2018 -Hx of cholecystectomy -Hx of cystoscopy 07/08/2020 -History of extraction of renal calculus -Hx of removal of ovary left -History of carpal tunnel surgery -History of hysterectomy 1996 I discussed in detail the procedure and what to expect pre and post operatively. We discussed the risks, benefits and alternatives to the surgery as well as the rehabilitation course. The risks; which include, but are not limited to infection, bleeding, nerve injury, ongoing pain, swelling, and stiffness, perioperative risk of injury to bones and soft tissues, and blood clots. I have answered all questions and with their understanding they have consented to move forward with a right total hip arthroplasty to be performed on 08/15/[address] Simone Zepeda. Follow up will be at the post operative appointment on 08/30/2023 at 12:30 pm, or sooner if needed. Reports that her walker was delivered to her house today. Patient Instructions: Scribed for Pippa Lima PA-C by Rossy Herzog medical equipment repair technician, on 08/09/2023 at 3:03 pm, EST. Coding Level of Care Code Global (72103) Diagnoses Primary osteoarthritis of right hip M16.11 Osteoarthritis type: primary Fibromyalgia M79.7 Bipolar depression F31.9 Right sciatic nerve pain M54.31
== END 2023-08-09 15:46 | disposition home or self-care (01) ==
PROVIDERS: PCP Internal Medicine; Visit Provider Physician Assistant
DX: M16.11 Unilateral primary osteoarthritis, right hip (principal); M79.7 Fibromyalgia; F31.9 Bipolar disorder, unspecified; M54.31 Sciatica, right side
CPT/HCPCS: 99024

== ENCOUNTER → 2023-08-09 14:50 | Outpatient (BNVA) | payer OTHER, SELFPAY | PROVIDERS: PCP Internal Medicine; Visit Provider Physician Assistant | DX: M16.11 Unilateral primary osteoarthritis, right hip (principal); M79.7 Fibromyalgia; M54.31 Sciatica, right side; F31.9 Bipolar disorder, unspecified | CPT/HCPCS: 99212 ==

== ENCOUNTER 2023-08-15 07:48 | Inpatient (IN) | payer OTHER, SELFPAY ==
--- NOTE | 2023-07-25 14:49 | ECG_ITS ---
Test Reason : preop Blood Pressure : / mmHG Vent. Rate : 069 BPM Atrial Rate : 069 BPM P-R Int : 122 ms QRS Dur : 080 ms QT Int : 386 ms P-R-T Axes : 042 004 029 degrees QTc Int : 413 ms Normal sinus rhythm Normal ECG When compared with ECG of 04-SEP-2013 22:56, No significant change was found Referred By: Christ Goodwin Electronically Signed By:CARLITA MARTIN MD
[2023-07-25 15:11] LABS: MANUAL DIFF FLAG NO
[2023-07-25 15:54] LABS: Basophils Absolute Auto 0.1 X10*3/uL (0.0-0.2); Basophils Percent Auto 0.7 % (0-2); Eosinophils Absolute Auto 0.2 X10*3/uL (0.0-0.4); Eosinophils Percent Auto 2.3 % (0-4); Hematocrit 38.7 % (37.0-47.0); Hemoglobin 12.1 g/dl (12.0-16.0); Imm Gran Abs Auto 0.05 X10*3/uL (0.00-0.03); Imm Gran Pct Auto 0.5 % (0.0-0.4); Lymphocytes Absolute Auto 1.6 X10*3/uL (1.2-4.9); Lymphocytes Percent Auto 16.9 % (20-40); Mean Corpuscular HGB Conc 31.3 g/dl (31.0-35.0); Mean Corpuscular Hemoglobin 27.1 pg (27.0-33.0); Mean Corpuscular Volume 86.6 fL (80.0-98.0); Mean Platelet Volume 10.8 fL (9.4-12.3); Monocytes Absolute Auto 0.5 X10*3/uL (0.1-1.2); Monocytes Percent Auto 5.8 % (2-11); Neutrophils Absolute Auto 6.8 x10*3/uL (2.0-8.3); Neutrophils Percent Auto 73.8 % (45-73); Platelet Count 404 X10*3/uL (160-400); Red Blood Count 4.47 X10*6/uL (4.20-5.50); Red Cell Distribution Width 14.6 % (11.0-16.0); White Blood Count 9.2 X10*3/uL (4.8-10.8)
[2023-07-25 15:56] LABS: Prothrombin Time 12.2 SEC (11.1-13.3)
[2023-07-25 15:59] LABS: Partial Thromboplastin Time 29.3 SEC (26.0-36.4)
[2023-07-25 16:11] LABS: Alanine Aminotransferase 13 U/L (0-31); Albumin Level 4.3 g/dL (3.5-5.0); Alkaline Phosphatase 92 U/L (39-117); Anion Gap 12 (12-20); Aspartate Amino Transferase 14 U/L (5-31); Bilirubin Total 0.4 mg/dL (0.0-1.0); Blood Urea Nitrogen 13 mg/dL (9-16); Calcium 9.9 mg/dL (8.4-10.2); Carbon Dioxide 25 mmol/L (22-29); Chloride 109 mmol/L (96-108); Estimated Glomerular Filt Rate > 60; Glucose Random 77 mg/dL (60-115); Potassium 3.9 mmol/L (3.3-5.1); Sodium 142 mmol/L (135-145); Total Protein 7.9 g/dL (6.5-8.0)
[2023-07-25 18:05] LABS: Appearance Urine Cloudy; Color Urine Yellow; Glucose Urine UA Negative (Negative); Leukocyte Esterase Urine Small (1+) (Negative); Nitrite Urine Negative (Negative); PH 5.5 (5.0-9.0); Specific Gravity - Urine 1.015 (1.005-1.025); UMIC TRIGGER UACC YES; Urine Blood Negative (Negative); Urine Ketones Negative (Negative); Urine Protein Negative (Neg-Trace)
[2023-07-25 18:14] LABS: Bacteria Urine None Seen (None Seen); Hyaline Casts Urine 0-2 /LPF (0-2); RBC Urine 0-2 /HPF (0-2); Squamous Epithelial Cell Urine 0-2 /HPF (0-2); UACC Culture Trigger YES
[2023-08-14 13:14] VITALS: BP 158/74; PULSE 73; RESP 20; O2SAT 97; BMI 37.3
--- NOTE | 2023-08-14 13:42 | P.CONAN_ITS ---
Documented by User: Gisela Conway NP 08/14/23 13:54 HPI - Anesthesia Eval Consult details Narrative: 53yo F for Right Hip Total Replacement PCP cleared Uro cleared. L ureter stricture with L hydronephrosis No recent illness No CP/SOB with very limited activity d/t hip pain Seen [place] [facility] [place] for palps. Likely r/t PVCs. PRN f/u only. PMFSH Active Problems Active Problems: All Active Problems (Updated 08/09/23 @ 00:03 by Background Daemon) Intractable nausea and vomiting (Acute) Ureteral stricture, left (Acute) Leukocytosis (Acute) Abnormal CT scan (Acute) PVC (premature ventricular contraction) (Acute) Palpitations (Acute) Cervicalgia (Acute) Osteoarthritis of right hip (Acute) Bilateral lumbar radiculopathy (Acute) Ingrown toenail of both feet (Acute) Compression fracture of body of thoracic vertebra (Acute) Right sciatic nerve pain (Acute) Osteopenia (Acute) Encounter for medication monitoring (Acute) Fibromyalgia (Acute) Obesity (BMI 30-39.9) (Acute) Bipolar depression (Acute) Vitamin D deficiency (Acute) Migraine (Acute) Allergic rhinitis (Acute) Mild intermittent asthma without complication (Acute) Pure hypercholesterolemia (Acute) Lumbar spondylosis (Acute) Past Medical History Medical History Hydronephrosis, bilateral Osteopenia Renal calculi Sacroiliac joint pain Encounter for medication monitoring Palpitations Gastritis Fibromyalgia Hx of small bowel obstruction Abdominal pain Obesity (BMI 30-39.9) Bipolar depression Insomnia HLA-B27 spondyloarthropathy Osteoarthritis of multiple joints Vitamin D deficiency Migraine Allergic rhinitis Mild intermittent asthma without complication Pure hypercholesterolemia Primary osteoarthritis of right hip Lumbar spondylosis Family History Family History Father Kidney problem Diabetes Mother Kidney malignancy Diabetes Brother Asthma Diabetes Family history of problems with anesthesia: No Surgical History Surgical History S/P cystourethroscopy with dilation of urethral stricture (~07/21/20) History of esophagogastroduodenoscopy (EGD) Hx of unilateral oophorectomy Hx of colonoscopy Hx of cholecystectomy Hx of cystoscopy History of extraction of renal calculus History of carpal tunnel surgery History of hand surgery History of hysterectomy History of Problems with Anesthesia: No Social History Social History Household Members: Spouse Housing: House Are you a primary cattle care worker to a significant other at home: No Do you presently have visiting nurse or other home services: Yes ([facility]) Alcohol intake: never Comment: counts correct Patient Tobacco Use Status: Never used Tobacco e-Cigarette/Vaping Use: Never Used Second Hand Smoke Exposure: No Advance Directives Date on File: 08/08/23 service: No Current occupational status: disabled Cognitive needs: No Hearing needs: No Vision needs: Yes Meds Allergies Allergy/AdvReac Type Severity Reaction Status Date / Time Penicillins [PENICILLINS] Allergy Severe HIVES Verified 08/15/23 07:49 Iodinated Contrast Media Allergy Intermediate HIVES Verified 08/15/23 07:49 [IV CONTRAST] peanut [PEANUTS] Allergy Intermediate HIVES Verified 08/15/23 07:49 shellfish derived Allergy Intermediate HIVES Verified 08/15/23 07:49 [SHELLFISH DERIVED] almond Allergy Mild Hives Verified 08/15/23 07:49 cat dander Allergy Mild cough/hives Verified 08/15/23 07:49 dog dander Allergy Mild cough/hives Verified 08/15/23 07:49 pollen extracts Allergy Mild runny Verified 08/15/23 07:49 nose, itchy eyes Home Medications Medication Instructions Recorded Confirmed Last Taken Type cetirizine 10 mg tablet (Zyrtec) 10 mg PO DAILY 07/06/20 08/03/23 08/14/23 History clonazepam 1 mg tablet (Klonopin) 1 mg PO BID 07/06/20 08/03/23 08/15/23 06:00 History montelukast 10 mg tablet 10 mg PO BEDTIME 07/06/20 08/14/23 08/14/23 History (Singulair) naratriptan 2.5 mg tablet 2.5 mg PO DAILY MRX1 07/06/20 08/03/23 08/02/23 History cyclosporine 0.05 % eye drops in a 1 drp ophthalmic (eye) Q12H 01/06/21 08/03/23 08/15/23 06:00 History dropperette (Restasis) dorzolamide 22.3 mg-timolol 6.8 1 drp ophthalmic (eye) BID 05/08/22 08/03/23 08/15/23 06:00 History mg/mL eye drops bupropion HCl 150 mg 24 hr tablet, 150 mg PO DAILY 09/18/22 08/15/23 08/14/23 History extended release epinephrine 0.3 mg/0.3 mL 0.3 mg IM ONCE PRN anaphylaxis 09/18/22 08/03/23 Unknown History injection, auto-injector bimatoprost 0.01 % eye drops 1 drp ophthalmic (eye) BEDTIME 03/26/23 08/03/23 08/14/23 History (Lumigan) omalizumab 150 mg subcutaneous 150 mg subcut Q3W 05/02/23 08/03/23 08/02/23 History solution (Xolair) bisacodyl 5 mg tablet,delayed 10 mg PO BEDTIME PRN Constipation 08/03/23 08/14/23 Unknown History release (Dulcolax (bisacodyl)) fluticasone propionate 50 1 spray intranasal DAILY PRN 08/03/23 08/14/23 Unknown History mcg/actuation nasal Congestion spray,suspension gabapentin 800 mg tablet 800 mg PO TID 08/03/23 08/14/23 08/15/23 06:00 History Exam Height,Weight and Vital Signs: Height 5 ft Weight 86.636 kg Last Vital Signs Pulse 73 08/14/23 13:14 Resp 20 08/14/23 13:14 BP 158/74 H 08/14/23 13:14 Pulse Ox 97 08/14/23 13:14 O2 Del Method Room Air 08/14/23 13:14 Pertinent Lab Results Pertinent Lab Results: Laboratory Tests 07/25/23 07/25/23 15:09 15:10 WBC 9.2 RBC 4.47 Hgb 12.1 Hct 38.7 MCV 86.6 MCH 27.1 MCHC 31.3 RDW 14.6 Plt Count 404 H MPV 10.8 Immature Gran % (Auto) 0.5 H Neut % (Auto) 73.8 H Lymph % (Auto) 16.9 L Wallace % (Auto) 5.8 Eos % (Auto) 2.3 Baso % (Auto) 0.7 Lymph # (Auto) 1.6 Wallace # (Auto) 0.5 Eos # (Auto) 0.2 Baso # (Auto) 0.1 Abs Immat Gran (auto) 0.05 H Absolute Neuts (auto) 6.8 Absolute Nucleated RBC 0.000 Nucleated RBC % (auto) 0.0 PT 12.2 INR 1.0 APTT 29.3 Sodium 142 Potassium 3.9 Chloride 109 H Carbon Dioxide 25 Anion Gap 12 BUN 13 Creatinine 0.77 Estim Creat Clear Calc TNP Estimated GFR > 60 Random Glucose 77 Calcium 9.9 Total Bilirubin 0.4 AST 14 ALT 13 Alkaline Phosphatase 92 Total Protein 7.9 Albumin 4.3 Urine Color Yellow Urine Appearance Cloudy Urine pH 5.5 Ur Specific Butner 1.015 Urine Protein Negative Urine Glucose (UA) Negative Urine Ketones Negative Urine Blood Negative Urine Nitrite Negative Ur Leukocyte Esterase Small (1+) H Urine RBC 0-2 Urine WBC 11-20 H Ur Squamous Epith Cells 0-2 Urine Bacteria None Seen Hyaline Casts 0-2 Narrative Narrative: EKG 07/2023 Vent. Rate : 078 BPM Atrial Rate : 078 BPM P-R Int : 126 ms QRS Dur : 090 ms QT Int : 392 ms P-R-T Axes : 042 003 028 degrees QTc Int : 446 ms Sinus rhythm with occasional Premature ventricular complexes Otherwise normal ECG When compared with ECG of 25-JUL-2023 14:51, Premature ventricular complexes are now Present Echocardiogram with LVEF of 60%. No wall motion abnormalities and otherwise unremarkable. In the Holter, underlying rhythm is sinus. There were PVCs with a burden of 1.3%. Airway Mallampati Class: I TM Dist: >3cm Neck ROM: Full Partial: Upper and Lower Loose/Missing/Broken Teeth: Yes (#10 crown) Heart: RRR Lungs: CTAB Assessment and Plan Assessment Anesthesia Assessment: Anesthesia Plan Discussed and PAT Visit Final Anesthetic Review Family History of Problems with Anesthesia: No History of Problems with Anesthesia: No Documented by User: Shannon Arriaga MD 08/15/23 11:12 PMFSH Active Problems Active Problems: All Active Problems (Updated 08/15/23 @ 07:46 by Shannon Arriaga MD) Ureteral stricture, left (Acute) Anemia PVC (premature ventricular contraction) (Acute) Palpitations (Acute) Cervicalgia (Acute) Osteoarthritis of right hip (Acute) Bilateral lumbar radiculopathy (Acute) Compression fracture of body of thoracic vertebra (Acute) Right sciatic nerve pain (Acute) Osteopenia (Acute) Encounter for medication monitoring (Acute) Fibromyalgia (Acute) Obesity (BMI 30-39.9) (Acute). Denies [place] Bipolar depression (Acute) Vitamin D deficiency (Acute) Migraine (Acute) Allergic rhinitis (Acute) Mild intermittent asthma without complication (Acute) Pure hypercholesterolemia (Acute) Lumbar spondylosis (Acute) Past Medical History Medical History Hydronephrosis, bilateral Osteopenia Renal calculi Sacroiliac joint pain Encounter for medication monitoring Palpitations Gastritis Fibromyalgia Hx of small bowel obstruction Abdominal pain Obesity (BMI 30-39.9) Bipolar depression Insomnia HLA-B27 spondyloarthropathy Osteoarthritis of multiple joints Vitamin D deficiency Migraine Allergic rhinitis Mild intermittent asthma without complication Pure hypercholesterolemia Primary osteoarthritis of right hip Lumbar spondylosis Family History Family History Father Kidney problem Diabetes Mother Kidney malignancy Diabetes Brother Asthma Diabetes Surgical History Surgical History S/P cystourethroscopy with dilation of urethral stricture (~07/21/20) History of esophagogastroduodenoscopy (EGD) Hx of unilateral oophorectomy Hx of colonoscopy Hx of cholecystectomy Hx of cystoscopy History of extraction of renal calculus History of carpal tunnel surgery History of hand surgery History of hysterectomy Social History Social History Household Members: Spouse Housing: House Are you a primary cattle care worker to a significant other at home: No Do you presently have visiting nurse or other home services: Yes ([facility]) Alcohol intake: never Comment: counts correct Patient Tobacco Use Status: Never used Tobacco e-Cigarette/Vaping Use: Never Used Second Hand Smoke Exposure: No Advance Directives Date on File: 08/08/23 service: No Current occupational status: disabled Cognitive needs: No Hearing needs: No Vision needs: Yes Meds Allergies Allergy/AdvReac Type Severity Reaction Status Date / Time Penicillins [PENICILLINS] Allergy Severe HIVES Verified 08/15/23 07:49 Iodinated Contrast Media Allergy Intermediate HIVES Verified 08/15/23 07:49 [IV CONTRAST] peanut [PEANUTS] Allergy Intermediate HIVES Verified 08/15/23 07:49 shellfish derived Allergy Intermediate HIVES Verified 08/15/23 07:49 [SHELLFISH DERIVED] almond Allergy Mild Hives Verified 08/15/23 07:49 cat dander Allergy Mild cough/hives Verified 08/15/23 07:49 dog dander Allergy Mild cough/hives Verified 08/15/23 07:49 pollen extracts Allergy Mild runny Verified 08/15/23 07:49 nose, itchy eyes Home Medications Medication Instructions Recorded Confirmed Last Taken Type cetirizine 10 mg tablet (Zyrtec) 10 mg PO DAILY 07/06/20 08/03/23 08/14/23 History clonazepam 1 mg tablet (Klonopin) 1 mg PO BID 07/06/20 08/03/23 08/15/23 06:00 History montelukast 10 mg tablet 10 mg PO BEDTIME 07/06/20 08/14/23 08/14/23 History (Singulair) naratriptan 2.5 mg tablet 2.5 mg PO DAILY MRX1 07/06/20 08/03/23 08/02/23 History cyclosporine 0.05 % eye drops in a 1 drp ophthalmic (eye) Q12H 01/06/21 08/03/23 08/15/23 06:00 History dropperette (Restasis) dorzolamide 22.3 mg-timolol 6.8 1 drp ophthalmic (eye) BID 05/08/22 08/03/23 08/15/23 06:00 History mg/mL eye drops bupropion HCl 150 mg 24 hr tablet, 150 mg PO DAILY 09/18/22 08/15/23 08/14/23 History extended release epinephrine 0.3 mg/0.3 mL 0.3 mg IM ONCE PRN anaphylaxis 09/18/22 08/03/23 Unknown History injection, auto-injector bimatoprost 0.01 % eye drops 1 drp ophthalmic (eye) BEDTIME 03/26/23 08/03/23 08/14/23 History (Lumigan) omalizumab 150 mg subcutaneous 150 mg subcut Q3W 05/02/23 08/03/23 08/02/23 History solution (Xolair) bisacodyl 5 mg tablet,delayed 10 mg PO BEDTIME PRN Constipation 08/03/23 08/14/23 Unknown History release (Dulcolax (bisacodyl)) fluticasone propionate 50 1 spray intranasal DAILY PRN 08/03/23 08/14/23 Unknown History mcg/actuation nasal Congestion spray,suspension gabapentin 800 mg tablet 800 mg PO TID 08/03/23 08/14/23 08/15/23 06:00 History Exam Height,Weight and Vital Signs: Height 5 ft Weight 86.636 kg Last Vital Signs Pulse 73 08/14/23 13:14 Resp 20 08/14/23 13:14 BP 158/74 H 08/14/23 13:14 Pulse Ox 97 08/14/23 13:14 O2 Del Method Room Air 08/14/23 13:14 Vital Signs Temp Pulse Resp BP Pulse Ox O2 Del Method 08/15/23 08:15 98.2 F 71 16 148/87 H 96 Room Air 08/14/23 13:14 73 20 158/74 H 97 Room Air Pertinent Lab Results Pertinent Lab Results: Laboratory Tests 07/25/23 07/25/23 15:09 15:10 WBC 9.2 RBC 4.47 Hgb 12.1 Hct 38.7 MCV 86.6 MCH 27.1 MCHC 31.3 RDW 14.6 Plt Count 404 H MPV 10.8 Immature Gran % (Auto) 0.5 H Neut % (Auto) 73.8 H Lymph % (Auto) 16.9 L Wallace % (Auto) 5.8 Eos % (Auto) 2.3 Baso % (Auto) 0.7 Lymph # (Auto) 1.6 Wallace # (Auto) 0.5 Eos # (Auto) 0.2 Baso # (Auto) 0.1 Abs Immat Gran (auto) 0.05 H Absolute Neuts (auto) 6.8 Absolute Nucleated RBC 0.000 Nucleated RBC % (auto) 0.0 PT 12.2 INR 1.0 APTT 29.3 Sodium 142 Potassium 3.9 Chloride 109 H Carbon Dioxide 25 Anion Gap 12 BUN 13 Creatinine 0.77 Estim Creat Clear Calc TNP Estimated GFR > 60 Random Glucose 77 Calcium 9.9 Total Bilirubin 0.4 AST 14 ALT 13 Alkaline Phosphatase 92 Total Protein 7.9 Albumin 4.3 Urine Color Yellow Urine Appearance Cloudy Urine pH 5.5 Ur Specific Butner 1.015 Urine Protein Negative Urine Glucose (UA) Negative Urine Ketones Negative Urine Blood Negative Urine Nitrite Negative Ur Leukocyte Esterase Small (1+) H Urine RBC 0-2 Urine WBC 11-20 H Ur Squamous Epith Cells 0-2 Urine Bacteria None Seen Hyaline Casts 0-2 Lab Results 07/25/23 07/25/23 08/14/23 Range/Units 15:09 15:10 13:30 WBC 9.2 (4.8-10.8) X10*3/uL RBC 4.47 (4.20-5.50) X10*6/uL Hgb 12.1 (12.0-16.0) g/dl Hct 38.7 (37.0-47.0) % MCV 86.6 (80.0-98.0) fL MCH 27.1 (27.0-33.0) pg MCHC 31.3 (31.0-35.0) g/dl RDW 14.6 (11.0-16.0) % Plt Count 404 H (160-400) X10*3/uL MPV 10.8 (9.4-12.3) fL Immature Gran % (Auto) 0.5 H (0.0-0.4) % Neut % (Auto) 73.8 H (45-73) % Lymph % (Auto) 16.9 L (20-40) % Wallace % (Auto) 5.8 (2-11) % Eos % (Auto) 2.3 (0-4) % Baso % (Auto) 0.7 (0-2) % Lymph # (Auto) 1.6 (1.2-4.9) X10*3/uL Wallace # (Auto) 0.5 (0.1-1.2) X10*3/uL Eos # (Auto) 0.2 (0.0-0.4) X10*3/uL Baso # (Auto) 0.1 (0.0-0.2) X10*3/uL Abs Immat Gran (auto) 0.05 H (0.00-0.03) X10*3/uL Absolute Neuts (auto) 6.8 (2.0-8.3) x10*3/uL Absolute Nucleated RBC 0.000 (0.0-0.012) X10*3/uL Nucleated RBC % (auto) 0.0 (0.0-0.2) /100WBC PT 12.2 (11.1-13.3) SEC INR 1.0 (0.9-1.1) APTT 29.3 (26.0-36.4) SEC Sodium 142 (135-145) mmol/L Potassium 3.9 (3.3-5.1) mmol/L Chloride 109 H (96-108) mmol/L Carbon Dioxide 25 (22-29) mmol/L Anion Gap 12 (12-20) BUN 13 (9-16) mg/dL Creatinine 0.77 (0.5-1.4) mg/dL Estim Creat Clear Calc TNP Estimated GFR > 60 Random Glucose 77 (60-115) mg/dL Calcium 9.9 (8.4-10.2) mg/dL Total Bilirubin 0.4 (0.0-1.0) mg/dL AST 14 (5-31) U/L ALT 13 (0-31) U/L Alkaline Phosphatase 92 (39-117) U/L Total Protein 7.9 (6.5-8.0) g/dL Albumin 4.3 (3.5-5.0) g/dL Urine Color Yellow Urine Appearance Cloudy Urine pH 5.5 (5.0-9.0) Ur Specific Butner 1.015 (1.005-1.025) Urine Protein Negative (Neg-Trace) mg/dL Urine Glucose (UA) Negative (Negative) mg/dL Urine Ketones Negative (Negative) mg/dL Urine Blood Negative (Negative) Urine Nitrite Negative (Negative) Ur Leukocyte Esterase Small (1+) H (Negative) Urine RBC 0-2 (0-2) /HPF Urine WBC 11-20 H (0-5) /HPF Ur Squamous Epith Cells 0-2 (0-2) /HPF Urine Bacteria None Seen (None Seen) Hyaline Casts 0-2 (0-2) /LPF Nasal Screen MRSA (PCR) NEGATIVE (Negative) Nasal S. aureus Screen NEGATIVE (Negative) Nasal MRSA/S.aureus Interp SEE NOTE Blood Type Antibody Screen 08/14/23 Range/Units 14:10 WBC (4.8-10.8) X10*3/uL RBC (4.20-5.50) X10*6/uL Hgb (12.0-16.0) g/dl Hct (37.0-47.0) % MCV (80.0-98.0) fL MCH (27.0-33.0) pg MCHC (31.0-35.0) g/dl RDW (11.0-16.0) % Plt Count (160-400) X10*3/uL MPV (9.4-12.3) fL Immature Gran % (Auto) (0.0-0.4) % Neut % (Auto) (45-73) % Lymph % (Auto) (20-40) % Wallace % (Auto) (2-11) % Eos % (Auto) (0-4) % Baso % (Auto) (0-2) % Lymph # (Auto) (1.2-4.9) X10*3/uL Wallace # (Auto) (0.1-1.2) X10*3/uL Eos # (Auto) (0.0-0.4) X10*3/uL Baso # (Auto) (0.0-0.2) X10*3/uL Abs Immat Gran (auto) (0.00-0.03) X10*3/uL Absolute Neuts (auto) (2.0-8.3) x10*3/uL Absolute Nucleated RBC (0.0-0.012) X10*3/uL Nucleated RBC % (auto) (0.0-0.2) /100WBC PT (11.1-13.3) SEC INR (0.9-1.1) APTT (26.0-36.4) SEC Sodium (135-145) mmol/L Potassium (3.3-5.1) mmol/L Chloride (96-108) mmol/L Carbon Dioxide (22-29) mmol/L Anion Gap (12-20) BUN (9-16) mg/dL Creatinine (0.5-1.4) mg/dL Estim Creat Clear Calc Estimated GFR Random Glucose (60-115) mg/dL Calcium (8.4-10.2) mg/dL Total Bilirubin (0.0-1.0) mg/dL AST (5-31) U/L ALT (0-31) U/L Alkaline Phosphatase (39-117) U/L Total Protein (6.5-8.0) g/dL Albumin (3.5-5.0) g/dL Urine Color Urine Appearance Urine pH (5.0-9.0) Ur Specific Butner (1.005-1.025) Urine Protein (Neg-Trace) mg/dL Urine Glucose (UA) (Negative) mg/dL Urine Ketones (Negative) mg/dL Urine Blood (Negative) Urine Nitrite (Negative) Ur Leukocyte Esterase (Negative) Urine RBC (0-2) /HPF Urine WBC (0-5) /HPF Ur Squamous Epith Cells (0-2) /HPF Urine Bacteria (None Seen) Hyaline Casts (0-2) /LPF Nasal Screen MRSA (PCR) (Negative) Nasal S. aureus Screen (Negative) Nasal MRSA/S.aureus Interp Blood Type A Positive Antibody Screen NEGATIVE Airway Mallampati Class: II Loose/Missing/Broken Teeth: Yes (#10 crown. Missing some teeth back. Partial dentures top and bottom front. Denies broken or loose teeth ) Assessment and Plan Assessment Anesthesia Assessment: Chart Reviewed Final Anesthetic Review NPO: Yes ASA Class: III Final Preanesthetic Review: No Changes in Pt Med Stat, Meds/Allgs Chart Reviewed, Consent Obtained/Reviewed and Anes Risks/Benef Reviewed Patient Risk: Intermediate Procedure Risk: Intermediate Assessment/Block/Sedation in SS: Assess/Block/Sedation-SS Anesthetic Plan Anesthetic Plan: GA Disposition: Standard PACU and Inp. Admit - Standard Bed
[2023-08-14 16:07] LABS: MRSA Nasal PCR NEGATIVE (Negative); SA Nasal PCR NEGATIVE (Negative)
[2023-08-15] VITALS (20 sets, daily range): BP systolic 116–162; BP diastolic 62–88; PULSE 62–80; RESP 11–23; TEMP 36.1–37.4; O2SAT 94–100
--- NOTE | ~2023-08-15 | XR_ITS ---
EXAMINATION: XR PELVIS CLINICAL INFORMATION: Right [facility]STEL COMPARISON: AP pelvis and right hip 03/26/2023 TECHNIQUE: AP view of the pelvis. FINDINGS: There is a new right total hip replacement with the acetabular component secured with 2 screws. The hardware is intact. No evidence of fracture or periprosthetic lucency. Skin karrie are seen over the right hip. Curvilinear calcification is seen in the left side of the pelvis. Multiple surgical clips are seen in the pelvis including projecting over the sacrum. XR/XR pelvis 1-2V IMPRESSION: Satisfactory appearance of right total hip replacement.
--- OUTSIDE RECORDS SUMMARY | 2023-08-15 07:52 | XMS_ITS | Continuity of Care Document ---
Author Name Unknown Organization [facility] Address [address], [address], [address] [place] [id number]- Care Team Providers Care Rn Flight Name Role Phone Christ Goodwin MD Primary Care Physician Encounter [facility] [place] Date(s): 08/29/22 - 09/28/22 [facility] [address], [address], [address] [place] [id number] Attending Physician: Alexander Vail Admitting Physician: Admtr, Alexander Referring Physician: Admtr, [id number] Allergies, Adverse Reactions, Alerts Substance Reaction Severity Status penicillin rash Active shellfish itch Active Contrast Dye 1, 2 itching Active Peanuts itch Active Other Food Allergy 3 itch Active 1reaction on 12/03/2013 2itchy tongue and hives-treated with benedryl 3Almonds Immunizations Given and Recorded Vaccine Date Status Refusal Reason pneumococcal 23-valent vaccine 04/09/17 Given Medications albuterol CFC free 90 mcg/inh inhalation aerosol 2 puffs, Inhalation, 4 times a day, PRN for wheezing, # 75 Gm, 0 Refills, Maintenance, 04/24/14 8:55:15, Aerosol Start Date: 04/24/14 Status: Ordered Ambien 10 mg oral tablet 10, mg, 1, tablet, By Mouth, 0, 0, 03/25/08 11:33:36, Print SOLOMON Number, Constant Indicator Start Date: 03/25/08 Status: Ordered Aspercreme with Lidocaine 4% topical cream 1 applicator, Topically, 3 times a day, PRN Pain , Moderate, 0 Refills, Maintenance, 04/08/17 5:48:22 Start Date: 04/08/17 Status: Ordered baclofen 10 mg oral tablet 10 mg, 1, tablet, By Mouth, 3 times a day, Refills 0, Maintenance, 12/14/20 15:38:00 EDT, Partial fill upon patient request if the prescription is for a schedule II opioid drug. Start Date: 12/14/20 Status: Ordered Cymbalta 30 mg oral enteric coated capsule 1 capsule = 30 mg, By Mouth, 2 times a day, 0 Refills, Maintenance, 11/28/18 14:27:06 EDT Start Date: 11/28/18 Status: Ordered Flonase 50 mcg/inh nasal spray Daily, 0 Refills, Maintenance, 11/28/18 14:28:23 EDT Start Date: 11/28/18 Status: Ordered Flovent 110 mcg Inhaler HFA 2 prffs, Inhalation, Daily, Maintenance, 04/24/14 8:53:21 Start Date: 04/24/14 Status: Ordered Gabapentin = 800 mg, By Mouth, 3 times a day, 0 Refills, Maintenance, 04/08/17 5:23:56 EDT Start Date: 04/08/17 Status: Ordered Imodium A-D 2 mg oral tablet 2 mg, 1, tablet, By Mouth, Every 4 hours, Refills 0, Maintenance, 12/14/20 15:37:00 EDT, Partial fill upon patient request if the prescription is for a schedule II opioid drug. Start Date: 12/14/20 Status: Ordered iron 27mg iron 27mg, Refills 0, Maintenance, 12/14/20 15:38:00 EDT, Supply Start Date: 12/14/20 Status: Ordered Klonopin 1 mg oral tablet 1 tablet, By Mouth, 2 times a day, 0 Refills, Maintenance, 04/24/14 8:44:07, Tablet Start Date: 04/24/14 Status: Ordered naratriptan 2.5 mg oral tablet See Instructions, may repeat once in 4 hours if needed, max 2 tabs in 24hrs and no more than 3 doses/week, # 9 tablet, 3 Refills, Physician Stop 08/29/23 14:50:00 EST, 08/29/22 14:50:00 EST, [facility]/pharmacy #[id number], 152, cm, 08/29/22 14:10:00 EST, Height Start Date: 08/29/22 Stop Date: 08/29/23 Status: Ordered ondansetron 4 mg oral tablet 1 tablet = 4 mg, By Mouth, Every 8 hours, PRN Nausea & Vomiting, 10 tabs /month, # 10 tablet, 3Refills, Acute 08/29/23 14:51:00 EST, 08/29/22 14:51:00 EST, Tablet, [facility]/pharmacy #[id number], Partial fill upon patient request if the prescription is for a sc... Start Date: 08/29/22 Stop Date: 08/29/23 Status: Ordered Pepcid 20 mg oral tablet 1 tablet = 20 mg, By Mouth, 2 times a day, 0 Refills, Maintenance, 12/14/20 15:37:00 EDT, Partial fill upon patient request if the prescription is for a schedule II opioid drug. Start Date: 12/14/20 Status: Ordered Refresh - solution 1 drops, Eyes, Both, Daily at bedtime, 0 Refills, Maintenance, 04/08/17 5:47:13 Start Date: 04/08/17 Status: Ordered Restasis 0.05% ophthalmic emulsion 1 drops, Eyes, Both, Every 12 hours, 0 Refills, Maintenance, 04/08/17 5:46:28 Start Date: 04/08/17 Status: Ordered Singulair 10 mg oral tablet 10 mg, 1, tablet, By Mouth, Daily, Refills 0, Maintenance, 11/28/18 14:28:12 EDT Start Date: 11/28/18 Status: Ordered traMADol 50 mg oral tablet 1 tablet = 50 mg, By Mouth, Every 4 hours, PRN as needed for pain, 0 Refills, Maintenance, :53:00 EDT, Tablet Start Date: 03/08/20 Status: Ordered Travatan Z 0.004% ophthalmic solution 1 drops, Daily before dinner, 0 Refills, Maintenance, 12/14/20 15:37:00 EDT, Partial fill upon patient request if the prescription is for a schedule II opioid drug. Start Date: 12/14/20 Status: Ordered Vitamin B2 = 100 mg, By Mouth, Daily, 0 Refills, Maintenance, 04/08/17 5:45:22 Start Date: 04/08/17 Status: Ordered Xolair Prefilled Syringe Subcutaneous Infusion, 0 Refills, Maintenance, 12/14/20 15:38:00 EDT, Partial fill upon patient request if the prescription is for a schedule II opioid drug. Start Date: 12/14/20 Status: Ordered Zofran 4 mg oral tablet See Instructions, 1 tablet By Mouth at onset of migraine prn nausea, # 10 tablet, 1 Refills, Maintenance, 01/16/22 15:22:00 EDT, [facility]/pharmacy #[id number], Partial fill upon patient request if the prescription is for a schedule II opioid drug., 152, cm, .. Start Date: 01/16/22 Status: Ordered ZyrTEC 10 mg oral tablet 1 tablet = 10 mg, By Mouth, Daily, 0 Refills, Maintenance, 11/28/18 14:27:57 EDT Start Date: 11/28/18 Status: Ordered Problem List Condition Confirmation Course Effective Dates Status Health St atus Informant Dysplasia of Vagina Confirmed Active LSIL Confirmed Active Classic migraine Confirmed Active Obese class II Confirmed Active Social History Social History Type Response Smoking Status Never (less than 100 in lifetime) entered on: 03/25/20 Sex Patient Care team information Care Team Personnel Name: Buddy KLINE, Christ Tello Position: Reference Physician Member Role: PCP Address: Address: [address] [place] [address] [place] [id number] Name: María SALEH, Maria Eugenia Sanchez Position: S Onco RN Member Role: Primary Care Nurse Care Team Related Persons Name: BISHNU CASTILLO Address: home [address] [place] [address]
--- OUTSIDE RECORDS SUMMARY | 2023-08-15 07:52 | XMS_ITS | Continuity of Care Document ---
Author Name Unknown Organization [facility] ter Address [address] [place] [address]- Care Team Providers Care Day Guard Name Role Phone Christ Goodwin MD Primary Care Physician Encounter [facility] Date(s): 02/13/23 - 02/13/[address] [address]- Discharge Disposition: A-D/C Walkout Attending Physician: Not on Staff, Attending MD Admitting Physician: Not on Staff, Admitting MD Referring Physician: Not on Staff, Referring MD Allergies, Adverse Reactions, Alerts Substance Reaction Severity Status penicillin rash Active shellfish itch Active Peanuts itch Active Other Food Allergy 1 itch Active Contrast Dye 2, 3 itching Active 1Almonds 2reaction on 12/03/2013 3itchy tongue and hives-treated with benedryl Immunizations Given and Recorded Vaccine Date Status [...] Stop 08/29/23 14:50:00 EST, 08/29/22 14:50:00 EST, [facility]/pharmacy #[id number], 152, cm, 08/29/22 14:10:00 EST, Height Start Date: 08/29/22 Stop Date: 08/29/23 Status: Ordered ondansetron 4 mg oral tablet 1 tablet = 4 mg, By Mouth, Every 8 hours, PRN Nausea & Vomiting, 10 tabs /month, # 10 tablet, 3Refills, Acute 08/29/23 14:51:00 EST, 08/29/22 14:51:00 EST, Tablet, [facility]/pharmacy #[id number], Partial fill upon patient request [...] as needed for pain, 0 Refills, Maintenance, 209:53:00 EDT, Tablet Start Date: 03/08/20 Status: Ordered [...] tablet, 1 Refills, Maintenance, 01/16/22 15:22:00 EDT, [facility]/pharmacy #[id number], Partial fill upon patient request if the prescription is for a schedule II opioid drug., 152, cm, ... Start Date: 01/16/22 Status: Ordered ZyrTEC 10 mg oral tablet 1 tablet = 10 mg, By Mouth, Daily, 0 Refills, Maintenance, 11/28/18 14:27:57 EDT Start Date: 11/28/18 Status: Ordered Problem List Condition Confirmation Course Effective Dates Status Health St atus Informant Dysplasia of Vagina Confirmed Active LSIL Confirmed Active Classic migraine Confirmed Active Obese class II Confirmed Active Vital Signs Most recent to oldest [Reference Range]: 1 Height 153 cm (02/13/23 2:16 AM) Weight 88.2 kg (02/13/23 2:16 AM) Oxygen Saturation [94-100 %] 100 % (02/13/23 2:16 AM) Pulse Rate [55-90 bpm] 72 bpm (02/13/23 2:16 AM) Body Mass Index [18.5-24.99 kg/m2] 37.68 kg/m2 *>HHI* (02/13/23 2:16 AM) Blood Pressure [90-138/55-84 mm Hg] 170/ 90mm Hg *H* (02/13/23 2:16 AM) Respiratory Rate [16-30 br/min] 19 br/mi n (02/13/23 2:16 AM) Temperature [96.8-100.4 DegF] 97.8 DegF (02/13/23 2:16 AM) Mode of Delivery (Oxygen) Room air (02/13/23 2:16 AM) Blood pressure sites Arm, left (02/13/23 2:16 AM) Temperature Route Oral (02/13/23 2:16 AM) Dry Weight 88.2 kg (02/13/23 2:16 AM) Weight Obtained Via Standing scale (02/13/23 2:16 AM) Dry Weight Obtained Via Standing scale (02/13/23 2:16 AM) Social History Social History Type Response Smoking Status Never (less than 100 in lifetime) entered on: 03/25/20 Sex Patient Care team information Care Team Personnel Name: Buddy KLINE, Christ Tello Position: Reference Physician Member Role: PCP Address: Address: [address] [place] [address] [place] [address]- Name: María SALEH, Maria Eugenia Sanchez Position: S Onco RN Member Role: Primary Care Nurse Care Team Related Persons Name: BISHNU CASTILLO Address: home [address] [place] [place] [address]
--- OUTSIDE RECORDS SUMMARY | 2023-08-15 07:52 | XMS_ITS | Continuity of Care Document ---
Author Name Unknown Organization [facility] ter Address [address] [place] [address]- Care Team Providers Care Radio Engineering Teacher Name Role Phone Christ Goodwin MD Primary Care Physician [place] [facility] [place] - 09/25/[address] [address]- [facility] Attending Physician: Marilyn WILL, Bianca Pineda Allergies, Adverse Reactions, Alerts Substance Reaction Severity [...] Constant Indicator Start Date: 03/25/08 Status: Ordered Amerge 2.5 mg oral tablet See Instructions, 1 tablet By Mouth at onset of headache. May repeat once in 4 hours if needed., # 9 tablet, 0 Refills, Maintenance, 06/19/19 14:39:49 EST Start Date: 06/19/19 Status: Ordered Aspercreme with Lidocaine 4% topical cream 1 applicator, Topically, 3 times a day, PRN Pain , Moderate, 0 Refills, Maintenance, 04/08/17 5:48:22 Start Date: 04/08/17 Status: Ordered Cymbalta 30 mg oral enteric coated capsule 1 capsule = 30 mg, By Mouth, 2 times a day, 0 Refills, Maintenance, 11/28/18 14:27:06 EDT Start Date: 11/28/18 Status: Ordered Flomax 0.4 mg oral capsule 0.4 mg, By Mouth, Daily, # 30 tablet, Refills 0, Tot. Refills 0, Maintenance, 04/09/17 11:48:44, Route to Pharmacy Electronically, [id number], [facility]/pharmacy #[id number] Start Date: 04/09/17 Stop Date: 05/09/17 Status: Ordered Flonase 50 mcg/inh nasal spray Daily, 0 Refills, Maintenance, 11/28/18 14:28:23 EDT Start Date: 11/28/18 Status: Ordered Flovent 110 mcg Inhaler HFA 2 prffs, Inhalation, Daily, Maintenance, 04/24/14 8:53:21 Start Date: 04/24/14 Status: Ordered Gabapentin = 800 mg, By Mouth, 3 times a day, 0 Refills, Maintenance, 04/08/17 5:23:56 EDT Start Date: 04/08/17 Status: Ordered Klonopin 1 mg oral tablet 1 tablet, By Mouth, 2 times a day, 0 Refills, Maintenance, 04/24/14 8:44:07, Tablet Start Date: 04/24/14 Status: Ordered latanoprost 0.005% ophthalmic solution 1 drops, Eyes, Both, Daily at bedtime, # 3 mL, 0 Refills, Maintenance, 02/08/16 16:35:04, Ophth Solution Start Date: 02/08/16 Status: Ordered lidocaine 5% topical film 1 patch, Topically, Daily, 0 Refills, Maintenance, 10/06/14 14:09:37 Start Date: 10/06/14 Status: Ordered Refresh - solution 1 drops, [...] 14:28:12 EDT Start Date: 11/28/18 Status: Ordered Vagifem 10 mcg vaginal tablet See Instructions, 1 tablet vaginally at bedtime x 4 weeks. Then twice weekly thereafter, # 24 tablet, 2 Refills, Maintenance, 05/24/17 14:40:10 Start Date: 05/24/17 Status: Ordered Vitamin B2 = 100 mg, By Mouth, Daily, 0 Refills, Maintenance, 04/08/17 5:45:22 Start Date: 04/08/17 Status: Ordered Vitamin D3 2000 intl units oral capsule 1 capsule = 2,000 International_Units, By Mouth, Daily, 0 Refills, Maintenance, 04/24/14 8:49:29 Start Date: 04/24/14 Status: Ordered Zofran 4 mg oral tablet See Instructions, 1 tablet By Mouth at onset of migraine prn nausea, # 10 tablet, 0 Refills, Maintenance, 01/15/19 16:09:04 EDT Start Date: 01/15/19 Status: Ordered ZyrTEC 10 mg oral tablet 1 tablet = 10 mg, By Mouth, Daily, 0 Refills, Maintenance, 11/28/18 14:27:57 EDT Start Date: 11/28/18 Status: Ordered Problem List Condition Effective Dates Status Health Status Inform ant Dysplasia of Vagina(Confirmed) Active LSIL(Confirmed) Active Classic migraine(Confirmed) Active Social History Social History Type Response Smoking Status Never (less than 100 in lifetime) entered on: 11/28/18 Sex
--- OUTSIDE RECORDS SUMMARY | 2023-08-15 07:52 | XMS_ITS | Continuity of Care Document ---
Author Name Unknown Organization [facility] Address [address] [place] [address], [address] [place] [address]- Care Team Providers Care Patent Engineer Name Role Phone Christ Goodwin MD Primary Care Physician Encounter [facility] [place] Date(s): 03/25/20 - 04/01/20 [facility] [address] [place] [address], [address] [place] [address]- [facility] Attending Physician: Sami Guerra MD Referring Physician: Christ Goodwin MD Allergies, Adverse Reactions, Alerts Substance Reaction [...] needed., # 9 tablet, 0 Refills, Maintenance, 12/01/19 15:21:00 EDT, [facility] #[id number], 152, cm, 06/19/19 14:32:00 EST, Height, 92.5, kg, 04/19/19 11:06:00 EDT, Start Date: 12/01/19 Status: Ordered Aspercreme with Lidocaine 4% topical [...] 8:44:07, Tablet Start Date: 04/24/14 Status: Ordered Refresh - solution 1 drops, [...] EDT, Tablet Start Date: 03/08/20 Status: Ordered Vitamin B2 = 100 mg, By Mouth, Daily, 0 Refills, Maintenance, 04/08/17 5:45:22 Start Date: 04/08/17 Status: Ordered ZyrTEC 10 mg oral tablet 1 tablet = 10 mg, By Mouth, Daily, 0 Refills, Maintenance, 11/28/18 14:27:57 EDT Start Date: 11/28/18 Status: Ordered Problem List Condition Effective Dates Status Health Status Inform ant Dysplasia of Vagina(Confirmed) Active LSIL(Confirmed) Active Classic migraine(Confirmed) Active Vital Signs Most recent to oldest [Reference Range]: 1 Height 152 cm (03/25/20 1:58 PM) Weight 89.4 kg (03/25/20 1:58 PM) Body Mass Index [18.5-24.99] 38.69 *>HHI* (03/25/20 1:58 PM) Blood Pressure [90-138/55-84 mm Hg] 124/ 70mm Hg (03/25/20 1:58 PM) Blood pressure sites Arm, right (03/25/20 1:58 PM) Weight Obtained Via Standing scale (03/25/20 1:58 PM) Social History Social History Type Response Smoking Status Never (less than 100 in lifetime) entered on: 03/25/20 Sex
--- OUTSIDE RECORDS SUMMARY | 2023-08-15 07:52 | XMS_ITS | Continuity of Care Document ---
Author Name Unknown Organization [facility] Address [address], [address], [address] [place] [address]- Care Team Providers Care Forest Officer Name Role Phone Christ Goodwin MD Primary Care Physician [phone] [place] [facility] [place](s): 09/02/19 - 12/31/[address] [facility] [address], [address], [address] [place] [address]- [facility] Attending Physician: Yeison Martinez Admitting Physician: Yeison Martinez Allergies, Adverse Reactions, Alerts Substance Reaction Severity [...] Maintenance, 04/09/17 11:48:44, Route to Pharmacy Electronically, [id number], [facility]/pharmacy #[id number] Start Date: 04/09/17 Stop Date: 05/09/17 [...]
--- OUTSIDE RECORDS SUMMARY | 2023-08-15 07:52 | XMS_ITS | Continuity of Care Document ---
Author Name Unknown Organization [facility] Address [address] [facility], [address] d Floor, [address] [place] [address]- Care Team Providers Care Employee Health Rn Name Role Phone Buddy KLINE, Christ Tello Primary Care Physician Encounter [facility] [place] ACCT R [id number] Date(s): 04/21/22 - 08/19/22 [facility] [address], [address], [address] [place] [address] Attending Physician: Richard Fournier NP Admitting Physician: Richard Fournier NP Allergies, Adverse Reactions, Alerts Substance Reaction Severity [...] naratriptan 2.5 mg oral tablet See Instructions, TAKE 1 TABLET BY MOUTH AT ONSET OF HEADACHE. MAY REPEAT ONCE IN 4 HOURS IF NEEDED, # 9 tablet, 0 Refills, [id number], 152, cm, 01/16/22 14:51:00 EDT, Height Start Date: 03/20/22 Status: Ordered Pepcid 20 mg oral tablet [...] tablet, 1 Refills, Maintenance, 01/16/22 15:22:00 EDT, [facility]/pharmacy #[id number], Partial fill upon patient request [...] Care team information Care Team Personnel Name: Christ Goodwin MD Position: Reference Physician Member Role: PCP Address: Address: [address] [place] [address] [place] [address]- Name: María SALEH, Maria Eugenia Sanchez Position: S Onco RN Member Role: Primary Care Nurse Care Team Related Persons Name: CASTILLOBISHNU BROWNING Address: home [address] [place] [address]
--- OUTSIDE RECORDS SUMMARY | 2023-08-15 07:52 | XMS_ITS | Continuity of Care Document ---
Author Name Unknown Organization [facility] Address [address] [place] [address], [address] [place] [address]- Care Team Providers Care Supervisor Reclamation Name Role Phone Christ Goodwin MD Primary Care Physician [place] [facility] [id number] Date(s): 03/25/20 - 04/24/20 [facility] [address] [facility], [address] [place] [address]- [facility] Attending Physician: Alexander Vail Admitting Physician: AdmtrAlexander Referring Physician: Admtr ArTatiana Allergies, Adverse Reactions, Alerts Substance Reaction Severity Status penicillin rash Active shellfish itch Active Other Food Allergy 1 itch Active Contrast Dye 2, 3 itching Active Peanuts itch Active 1Almonds 2reaction on 12/03/2013 3itchy tongue [...] 2 times a day, 0 Refills, Maintenance, 04/25/19 14:27:06 EDT Start Date: 11/28/18 Status: Ordered [...] MAY REPEAT ONCE IN 4 HOURS IF NEEDED., # 9 tablet, 0 Refills, Acute, [id number], 152, cm, 03/25/20 13:58:00 EDT, Height, 95.2, kg, 03/09/20 11:05:00 EDT, Dry Weight Start Date: 04/19/20 Status: Ordered Refresh - solution 1 drops, [...]
--- OUTSIDE RECORDS SUMMARY | 2023-08-15 07:52 | XMS_ITS | Continuity of Care Document ---
Author Name Unknown Organization [facility] ter Address [address] [place] [address]- Care Team Providers Care Field Contractor Name Role Phone Christ Goodwin MD Primary Care Physician [phone] [place] [facility] [place] - 03/09/[address] [address]- [facility] Encounter Diagnosis Partial small bowel obstruction(Final) - 03/08/20 Discharge Disposition: A-D/C Home Attending Physician: Sandeep JONES MD, Adin T Admitting Physician: Sandeep JONES MD, Adin T Referring Physician: Not on Staff, Referring MD [...] tablet, 0 Refills, Maintenance, 12/01/19 15:21:00 EDT, [facility]/pharmacy #[id number], 152, cm, 06/19/19 14:32:00 EST, Height, [...] Vagina(Confirmed) Active LSIL(Confirmed) Active Classic migraine(Confirmed) Active Results Radiology Reports * Exam Date Time Procedure Performing Provider Status 03/08/20 7:09 PM XR Abdomen AP Small Bowel W/ contrast Cheryl Gardner; Carolyn (Verified) Notes: (XR Abdomen AP Small Bowel W/ contrast) Reason For Exam: Nausea/Vomiting RESULT: XR Abdomen AP Small Bowel with contrast X-ray abdomen AP small bowel with contrast Reason: Nausea and vomiting: Assess for obstruction. COMPARISON: CT abdomen and pelvis 03/08/2020. FINDINGS: Approximately 8 hours after the administration of 90 cc of Gastrografin, supine AP radiographs of the abdomen were obtained. Administered contrast is demonstrated throughout distal small bowel loops and throughout the colon to the level of the rectosigmoid junction. No evidence of obstruction or perforation. Status post cholecystectomy. Multiple surgical clips overlie the pelvis. Lung bases are clear. No acute osseous abnormality. IMPRESSION: No evidence of obstruction. WSN: [id number] Ordering Physician: Abdifatah Almodovar Dictated By: Jhony Reyes DO Dictated Date/Time: 03/08/20 7:35 pm Reviewed By: Jhony Reyes DO Signed By: Jhony Reyes DO Signed Date/Time: 03/08/20 7:35 pm Transcribed By: VAMSHI Transcribed Date/Time: 03/08/20 7:32 pm Vital Signs Most recent to oldest [Reference Range]: 1 2 3 Weight 92.5 kg (03/09/20 11:05 AM) 92.5 kg (03/09/20 8:41 AM) 92.5 kg (03/08/20 3:34 PM) Oxygen Saturation [94-100 %] 99 % (03/09/20 11:05 AM) 99 % (03/09/20 8:41 AM) 97 % (03/09/20 4:00 AM) Pulse Rate [55-90 bpm] 91 bpm *H* (03/09/20 11:05 AM) 74 bpm (03/09/20 8:41 AM) 64 bpm (03/09/20 4:00 AM) Blood Pressure [90-138/55-84 mm Hg] 119/56mm Hg (03/09/20 11:05 AM) 127/72mm Hg (03/09/20 8:41 AM) 139/79mm Hg *H* (03/09/20 4:00 AM) Respiratory Rate [16-30 br/min] 18 br/min (03/09/20 11:05 AM) 14 br/min *L* (03/09/20 8:41 AM) 11 br/min *L* (03/09/20 4:00 AM) Temperature [96.8-100.4 DegF] 98.3 DegF (03/09/20 11:05 AM) 98.2 DegF (03/09/20 8:41 AM) 98 DegF (03/09/20 4:00 AM) Mode of Delivery (Oxygen) Room air (03/09/20 11:05 AM) Room air (03/09/20 8:41 AM) Room air (03/09/20 4:00 AM) Blood pressure sites Arm, left (03/09/20 11:05 AM) Arm, left (03/09/20 8:41 AM) Arm, left (03/09/20 4:00 AM) Temperature Route Oral (03/09/20 11:05 AM) Oral (03/09/20 8:41 AM) Oral (03/09/20 4:00 AM) Dry Weight 95.2 kg (03/09/20 11:05 AM) 95.2 kg (03/09/20 8:41 AM) 95.2 kg (03/08/20 3:34 PM) Social History Social History Type Response Smoking Status Never (less than 100 in lifetime) entered on: 11/28/18 Sex
--- OUTSIDE RECORDS SUMMARY | 2023-08-15 07:52 | XMS_ITS | Continuity of Care Document ---
Author Name Unknown Organization [facility] ter Address [address] [place] [id number]- Care Team Providers Care Newspaper Manager Name Role Phone Christ Goodwin MD Primary Care Physician Encounter [facility] [place](s): 05/23/23 - 05/23/[address] [address] Discharge Disposition: A-D/C Home Attending Physician: Raul Loaiza MD Admitting Physician: Raul Loaiza MD Referring Physician: Raul Loaiza MD Allergies, Adverse Reactions, Alerts Substance Reaction Severity Status penicillin rash Active shellfish itch Active Contrast Dye 1, 2 itching Active Peanuts itch Active 1reaction on 12/03/2013 2itchy tongue and hives-treated with benedryl Immunizations Given [...] 5:23:56 EDT Start Date: 04/08/17 Status: Ordered HYDROmorphone Inj (PACU ONLY) 0.5 mg, Injection, IV Push Slowly, Every 10 minutes for 4 doses/times, in PACU ONLY, PRN for Pain ,Severe, Routine, 05/23/23 12:34:00 EDT, Stop date 05/24/23 0:00:00 EDT Start Date: 05/23/23 Stop Date: 05/23/23 Status: Discontinued Imodium A-D 2 mg oral tablet 2 [...] Stop 08/29/23 14:50:00 EST, 08/29/22 14:50:00 EST, [facility]/pharmacy #[id number], 152, cm, 08/29/22 14:10:00 EST, Height Start Date: 08/29/22 Stop Date: 08/29/23 Status: Ordered ondansetron 4 mg oral tablet 1 tablet = 4 mg, By Mouth, Every 8 hours, PRN Nausea & Vomiting, 10 tabs /month, # 10 tablet, 3Refills, Acute 08/29/23 14:51:00 EST, 08/29/22 14:51:00 EST, Tablet, [facility]/pharmacy #[id number], Partial fill upon patient request if the prescription is for a sc... Start Date: 08/29/22 Stop Date: 08/29/23 Status: Ordered oxyCODONE 5 mg oral tablet 10 mg, Tablet, By Mouth, Once, PRN for Pain , Moderate, Routine, 05/23/23 14:15:00 EDT Start Date: 05/23/23 Stop Date: 05/23/23 Status: Completed Pepcid 20 mg oral tablet 1 tablet [...] opioid drug. Start Date: 12/14/20 Status: Ordered ZyrTEC 10 mg oral tablet 1 tablet = 10 mg, By Mouth, Daily, 0 Refills, Maintenance, 11/28/18 14:27:57 EDT Start Date: 11/28/18 Status: Ordered Problem List Condition Confirmation Course Effective Dates Status Health St atus Informant Dysplasia of Vagina Confirmed Active LSIL Confirmed Active Classic migraine Confirmed Active Obese class II Confirmed Active Results Radiology Reports * Exam Date Time Procedure Performing Provider Status 05/23/23 12:53 PM C-Arm < 1 Hour Busby , Bernadette; Aut h (Verified) Notes: (C-Arm < 1 Hour) Reason For Exam: Calculus of Kidney, Bilateral Retrogrades w/ laser lithotripsy& stent placement RESULT: C-Arm < 1 Hour C-Arm < 1 Hour INDICATION: Reason: Calculus of Kidney, Bilateral Retrogrades w laser lithotripsy stent placement COMPARISONS: None TECHNIQUE: Fluoroscopy support was provided. There was no radiologist in attendance. FLUOROSCOPY TIME: 24.5 seconds EXPOSURE: 1.6079 Gycm2 (Dose Area Product) TECHNOLOGIST TIME: 45 minutes FINDINGS: Fluoroscopy support was provided. There was no radiologist in attendance. IMPRESSION: See above. WSN: [id number] Ordering Physician: Raul Loaiza Dictated By: Scar Adams MD Dictated Date/Time: 05/23/23 6:10 pm Reviewed By: Scar Adams MD Signed By: Scar Adams MD Signed Date/Time: 05/23/23 6:10 pm Transcribed By: VAMSHI Transcribed Date/Time: 05/23/23 5:27 pm * Exam Date Time Procedure Performing Provider Status 05/23/23 12:53 PM Urethrocystography Retrograde Busby , Bernadette; Auth (Verified) Notes: (Urethrocystography Retrograde) Reason For Exam: Calculus of Kidney, Bilateral Retrogrades w/ laserlithotripsy & stent placement RESULT: Urethrocystography Retrograde Urethrocystography Retrograde INDICATION: Calculus of Kidney, Bilateral Retrogrades w laser lithotripsy stent placement COMPARISONS: None TECHNIQUE: Fluoroscopy support was provided. There was no radiologist in attendance. FLUOROSCOPY TIME: 24.5 seconds EXPOSURE: 1.6079 Gycm2 (Dose Area Product) TECHNOLOGIST TIME: 45 minutes FINDINGS: 39 intraoperative fluoroscopic images were obtained. Final image demonstrates placement of a right internal ureteral stent. IMPRESSION: See above. Please refer to operative report for complete findings and procedural narrative. I have personally reviewed the images and I agree with this report. WSN: [id number] Ordering Physician: Raul Loaiza Dictated By: Freddie Jarrell MD Dictated Date/Time: 05/23/23 4:27 pm Reviewed By: Silvino Dalton MD, V Signed By: Silvino Dalton MD, V Signed Date/Time: 05/23/23 4:32 pm Transcribed By: VAMSHI Transcribed Date/Time: 05/23/23 3:09 pm Vital Signs Most recent to oldest [Reference Range]: 1 2 3 Height 153 cm (05/23/23 9:15 AM) 153 cm (05/22/23 11:07 AM) Weight 88.2 kg (05/23/23 9:15 AM) 88.2 kg (05/22/23 11:07 AM) Oxygen Saturation [94-100 %] 97 % (05/23/23 2:00 PM) 99 % (05/23/23 1:45 PM) 96 % (05/23/23 1:30 PM) Pulse Rate [55-90 bpm] 74 bpm (05/23/23 9:15 AM) Body Mass Index [18.5-24.99 kg/m2] 37.68 kg/m2 *>HHI* (05/23/23 9:15 AM) 37.68 kg/m2 *>HHI* (05/22/23 11:07 AM) Blood Pressure [90-138/55-84 mm Hg] 141/81mm Hg *H* (05/23/23 1:45 PM) 129/74mm Hg (05/23/23 1:30 PM) 133/74mm Hg (05/23/23 1:15 PM) Respiratory Rate [16-30 br/min] 12 br/min *L* (05/23/23 1:46 PM) 12 br/min *L* (05/23/23 1:30 PM) 14 br/min *L* (05/23/23 1:20 PM) Temperature [96.8-100.4 DegF] 99.5 DegF (05/23/23 1:45 PM) 99.9 DegF (05/23/23 12:30 PM) 97.9 DegF (05/23/23 9:15 AM) Liters per Minute 6 L/min (05/23/23 1:00 PM) 6 L/min (05/23/23 12:45 PM) 6 L/min (05/23/23 12:30 PM) Mode of Delivery (Oxygen) Room air (05/23/23 2:00 PM) Room air (05/23/23 1:45 PM) Room air (05/23/23 1:30 PM) Blood pressure sites Arm, left (05/23/23 1:45 PM) Arm, left (05/23/23 1:30 PM) Arm, left (05/23/23 12:30 PM) Temperature Route Temporal (05/23/23 1:45 PM) Temporal (05/23/23 12:30 PM) Temporal (05/23/23 9:15 AM) Dry Weight 88.9 kg (05/23/23 9:15 AM) 88.2 kg (05/22/23 11:07 AM) Weight Obtained Via Patient/family state d (05/22/23 11:07 AM) Dry Weight Obtained Via Standing scale (05/23/23 9:15 AM) Patient/family stated (05/22/23 11:07 AM) Social History Social History Type Response Smoking Status Never (less than 100 in lifetime) entered on: 03/25/20 Sex History and physical note * Event Display: History and Physical Hospital Authored Date: * Event Display: History and Physical Hospital Authored Date: Note * Selma Hall RN: PERFORM Event Display: Discharge/Transfer Note Hospital Authored Date: [id number] Nursing Discharge Note Entered On: 05/23/2023 14:17 EDT Performed On: 05/23/2023 14:17 EDT by Selma Hall RN Nursing Discharge Note 2 Discharge Time : 05/23/2023 14:05 EDT Discharge Level of Care at Discharge : Home/Custodial/Foster Care Patient Left Unit Via : Wheelchair Patient Accompanied Off Unit with : Significant other DC Instructions Provided & Signed by Pt : Yes Patient Understands D/C Instructions : Yes Verbalized Understanding of D/C Plan By : Patient Patient Instructions Discharge Signed : Yes Did Pt have Specialty Bed or Wound Vac : No Selma Hall RN - 05/23/2023 14:17 EDT * Selma Hall RN: PERFORM Event Display: Patient Education/Instruction Authored Date: [id number] Surgery Adult Discharge Instructions [place] [id number] Name: ELISHA ERED : 1970?? Visit: 05/23/2023 08:32?? Current Date: 05/23/2023 13:23 ?? Account: [id number]?? Surgery Discharge Instructions We would like to thank you for allowing us to assist you with your healthcare needs. The following includes patient education materials and information regarding your injury/illness. Our entire staffstrives to provide an excellent experience for our patients and their families. PLEASE ENSURE YOU FOLLOW-UP PER THE INSTRUCTIONS BELOW! ?? YOUR OPINION IS IMPORTANT TO US! Please complete the survey you may receive by mail or email. Your feedback will be used to make improvements to the healthcare experiences of our patients and their families. Surveys are administered by [employer] ?? If further treatment with your primary care physician or another doctor is recommended, it is important for you to keep the appointment. Call your primary care physician or return to the Emergency Department immediately if your condition worsens, fails to improve, or new symptoms develop. If you need to find a doctor, you can call [facility] [employer] for a referral at [phone] or toll free at [phone] ([phone]) or log in to [email or web address].. ?? [facility], in keeping with [facility] guidance, no longer requires face masks for staff, patientsor visitors in most situations. Similiar to time spent indoors at other locations, there is the chance that you were exposed to repiratory viruses during your time with us (such as flu or COVID-19). If you develop symptoms concerning for a viral respiratory infection, please seek testing (and treatment if indicated) from your medical provider or home test kit. ?? You can view and manage your care through the patient portal or by using a health care marcia of your choosing. [employer] is a website that allows you to securely view your medical information including your hospital discharge summary, office visit summaries, medications and follow-up visits. You can also request appointments, renew medications, and request access to your medical information using a health care marcia of your choosing, or just ask a question. You are entitled to know the individuals who participated in your treatment. This information is available within your medical record and will be provided upon your request. You can enroll at [email or web address] or register d uring your next office visit. You have been discharged from [facility], Patient Care Unit: [facility]??. If you have any questions regarding these instructions after you leave, please call us and we will be happy to assist you. [facility] Your Care Team Attending Physician Fadia KLINE, Raul Luna?? Consulting Providers Bernardo Watts?? Discharging Providers Raul Loaiza MD Reason for Admission CALCULUS OF KIDNEY URETEROSCOPY DS CS Primary Care Provider Christ Goodwin MD? Advance Directive Health Care Proxy on File Yes - Health Care Proxy What to do next Instructions From Your Doctor ?? Orders?? Diet Tolerated, ??fOLLOW UP for stent removal 06.01. No new Rx. Good PO hydration., ??05/23/23 12:30:00 EDT?? Instructions from your Care Team No new prescriptions ?? Use tylenol/ibuprofen for pain ?? Drink plenty of water 8-10 glasses/day ?? Follow up in office 06/01 for stent removal You Need to Schedule the Following Appointments Follow Up with??Raul Loaiza Where: [address] [facility] [place] [address]- Business (1) Follow Up with??Christ Goodwin MD When:??In 0 days Where: [address] [place] [address]- Business (1) Discharge Medications ELISHA DUBON :1970 Visit Date:05/23/2023 Medications: Please continue your medications until treatment is completed or stopped by your provider. You may resume your daily prescription medications. Discuss any questions related to medications with your provider. What How Much When Instructions Next Dose Unchanged Albuterol (albuterol CFC free 90 mcg/ inh inhalation aerosol) 2 puff(s) Inhalation 4 times a day as needed for for wheezing Unchanged Baclofen (baclofen 10 mg oral tablet) 1 tab(s) Oral 3 times a day Unchanged Cetirizine (ZyrTEC 10 mg oral tablet) 1 tab(s) Oral Daily Unchanged Clonazepam (Klonopin 1 mg oral tablet) 1 tab(s) Oral Twice a day Unchanged Cyclosporine Ophthalmic (Restasis 0.05% ophthalmic emulsion) 1 Drops Both eyes Every 12 hours Unchanged Duloxetine (Cymbalta 30 mg oral enteric coated capsule) 1 capsule Oral Twice a day Unchanged Famotidine (Pepcid 20 mg oral tablet) 1 tab(s) Oral Twice a day Unchanged Fluticasone (Flovent 110 mcg Inhaler HFA) 2 prffs Inhalation Daily Unchanged Fluticasone Nasal (Flonase 50 mcg/ inh nasal spray) Daily Unchanged Gabapentin 800 Milligram Oral 3 times a day Unchanged Lidocaine Topical (Aspercreme with Lidocaine 4% topical cream) 1 applicator Topically 3 times a day as needed for Pain , Moderate Unchanged Loperamide (Imodium A-D 2 mg oral tablet) 1 tab(s) Oral Every 4 hours Unchanged Miscellaneous Rx (iron 27mg) Unchanged Montelukast (Singulair 10 mg oral tablet) 1 tab(s) Oral Daily Unchanged Naratriptan (naratriptan 2.5 mg oral tablet) See instructions may repeat once in 4 hours if needed, max ??2 tabs in ??24hrs and no more than ?3 doses/ week ?? Unchanged Ocular Lubricant (Refresh - solution) 1 Drops Both eyes Daily at Bedtime Unchanged omalizumab (Xolair Prefilled Syringe) Subcutaneous Infusion Unchanged Ondansetron (ondansetron 4 mg oral tablet) 1 tab(s) Oral Every 8 hours as needed for Nausea & Vomiting 10 tabs ??/ month ?? Unchanged Riboflavin (Vitamin B2) 100 Milligram Oral Daily Unchanged Tramadol (traMADol 50 mg oral tablet) 1 tab(s) Oral Every 4 hours as needed for as needed for pain Unchanged Travoprost Ophthalmic (Travatan Z 0.004% ophthalmic solution) 1 Drops Daily before dinner Unchanged Zolpidem (Ambien 10 mg oral tablet) 1 tab(s) Oral Allergies (NKA means No Known Allergies) Contrast Dye??(itching) Peanuts??(itch) penicillin??(rash) shellfish??(itch) Education Materials Below is the list of Educational Leaflet Providered with your Discharge Instructions. Surgery Voiding Instructions?? Surgery Medical Daystay Surgical Overnight Discharge Instructions?? Valuables and Belongings I fully understand and agree that [facility] accepts no responsibility for all my personal property including clothing, toilet articles, radios, jewelry, dentures, hearing aids, rings, money, or any other property that is in my possession or is brought to me after admission. I understand certain valuables may be placed in a hospital safe for a short period of time. I understand that the hospital is not liable for loss or damage due to accident, fire, or other natural occurrence while said property is in the safe. I accept full responsibility for any personal property that I keep with me, and will not hold the hospital responsible in case of loss or disappearance. I acknowledge that i have been encouraged to send valuables and belongings home. ?? Review of Valuable and Belonging List: With patient Date for Pt to Sign Valuables/Belongings: 05/23/23 09:15:00 ?? Valuables & Belongings ?? Clothes Electronic devices Jewelry Monetary Items Personal devices Miscellaneous Medications (Valuables) Valuables at Bedside Pants, Shirt, Shoes Cell phone ?? Purse Glasses ? Valuables Sent Home ? Valuables Sent to Security ? Other Discharge Information ? Pulmonary Rehab Status?? Pulmonary Rehab Discharge Status?? Respiratory Rate:??14 br/min??Low ? Common Emergency Awareness Tips IS IT A STROKE? Act FAST and Check for these signs: FACE Does the face look uneven? ARM Does one arm drift down? SPEECH Does their speech sound strange? TIME Call at any sign of stroke ?? Heart Attack Signs Chest discomfort: Most heart attacks involve discomfort in the center of the chest and lasts more than a few minutes, or goes away and comes back. It can feel like uncomfortable pressure, squeezing, fullness or pain. Discomfort in upper body: Symptoms can include pain or discomfort in one or both arms, back, neck, jaw or stomach. Shortness of breath: With or without discomfort. Other signs: Breaking out in a cold sweat, nausea, or lightheaded. Remember, MINUTES DO MATTER. If you experience any of these heart attack warning signs, call to get immediate medical attention! ?? Smoking can increase your chances of developing chronic health problems and can cause harmful effects to other family members in your house. If you smoke, you are strongly encouraged to quit. Please call [facility] [employer] Link at [phone] or 4-720-383Beyond Meat ([phone]) or log in to [email or web address] for referrals to smoking cessation programs. ?? The National Suicide Prevention Hotline is available 26/02 if you or someone you know needs to find a reason to keep living. By calling 3-078-090-UI Robot (6128) you'll be connected to a skilled, trained counselor at a crisis center in your area. SURGERY DISCHARGE INSTRUCTIONS SIGNATURE PAGE ELISHA DUBON Location:[facility] Registration Date and Time:05/23/2023 08:32 EDT Primary Care Physician: Buddy KLINE, Christ Tello, Attending Physician: Fadia KLINE, Raul Luna, I DIMPLE CLAUDIODECLAN ELISHA, have received the above patient education materials/instructions and have verbalized understanding. If ambulance or transport services are being used I further acknowledge being given a choice of service. ?? If you need to contact me, please call me at this number: . Patient/Tube Worker Name: Patient/Tube Worker Signature: Relationship to Patient: Witness Name/Signature: Date: * Selma Hall RN: PERFORM, SIGN, VERIFY Event Display: Patient Education Handout Authored Date: [id number] * Selma Hall RN: PERFORM Event Display: Patient Education Leaflets Authored Date: Surgery Medical Daystay Surgical Overnight Discharge Instructions ?? 295 Medical Daystay/Surgical Overnight Discharge Instructions ? Since your coordination and judgment may be altered by medication and/or anesthesia, a responsible adult must drive you home from the hospital. ? If you have received medication for pain or sedation while under our care, you should not drive, operate machinery, drink alcohol, or sign any legal documents for 24 hours.?? You should have someone with you at home tonight. ? Remain at home the day of discharge.?? You may be up and about unless otherwise instructed by your physician. ? You may resume your daily prescription medication schedule.?? Any depressant medication should be avoided for 24 hours unless otherwise instructed by your surgeon or anesthesiologist. ? Call your physician for a follow-up appointment.? If you experience unusual or severe pain not relied by your pain medication, excessive bleedingor drainage, persistent nausea and vomiting, excessive swelling or redness, foul odor from incisionsite or fever over 100.6F, you need to call your physician. ? A follow-up phone call by a nurse will be made the day after your procedure.?? If you have stayed with us over night, you will not be receiving a follow-up phone call. ? Nausea and vomiting are a common side effect of prescription pain medication.?? We recommend that pills are not taken on an empty stomach.?? While taking any prescription pain medication you should not drive or drink alcohol. ? * Selma Hall RN: PERFORM Event Display: Patient Education Leaflets Authored Date: [id number] Surgery Voiding Instructions ?? 305 Home Voiding Instructions ?? You should pass urine 6-8 hours after you are discharged from the [facility] Room. The amount should be about one cup of urine with each voiding. Be aware that you should feel like you are emptying your bladder completely. If you are passing very small amounts of urine frequently it could be over-flow and you may not be emptying your bladder. Things to try to encourage urination: Drink warm coffee or tea ??? unless your physician told you not to. Blow bubble through your straw into a small glass of water. Trickle lukewarm water onto your private area. Walk around as much as able. Let the faucet run slowly. Put your hand in warm water. Try to relax. If you have any concerns about urination, in the above time frame after your discharge, you should call your Doctor. ? Patient Care team information Care Team Personnel Name: Buddy KLINE, Christ Tello Position: Reference Physician Member Role: PCP Address: Address: [address] [place] [address]- Name: María SALEH, Maria Eugenia Sanchez Position: S Onco RN Member Role: Primary Care Nurse Care Team Related Persons Name: BISHNU CASTILLO Address: [address] [address]
--- OUTSIDE RECORDS SUMMARY | 2023-08-15 07:52 | XMS_ITS | Continuity of Care Document ---
Author Name Unknown Organization [facility] Address [address] [facility], [address] Floor, [address] [place] [address]- Care Team Providers Care Cylinder Machine Operator Name Role Phone Christ Goodwin MD Primary Care Physician [phone] [place] [facility] [place] 12/01/19 - 12/08/19 [facility] [address], [address], [address] [place] [address]- [facility] Attending Physician: Vilma Huerta MD Allergies, Adverse Reactions, Alerts Substance Reaction [...] EST, Height, 92.5, kg, 04/19/19 11:06:00 EDT, Dr... Start Date: 12/01/19 Status: Ordered Aspercreme with [...] Maintenance, 04/09/17 11:48:44, Route to Pharmacy Electronically, [id number], [facility]/pharmacy #[id number] Start Date: 04/09/17 Stop Date: [...]
--- OUTSIDE RECORDS SUMMARY | 2023-08-15 07:52 | XMS_ITS | Continuity of Care Document ---
Author Name Unknown Organization [facility] [employer] Address [address] [facility] [place] [address]- Care Team Providers Care Driver/Merchandiser Name Role Phone Christ Goodwin MD Primary Care Physician [phone] [place] [facility] [place] 01/10/20 [facility] [address] [facility] [place] [address]- [facility] Attending Physician: Sami Guerra MD Allergies, Adverse Reactions, Alerts Substance Reaction [...] EST, Height, 92.5, kg, 04/19/19 11:06:00 EDT, . Start Date: 12/01/19 Status: Ordered Aspercreme with [...] Maintenance, 04/09/17 11:48:44, Route to Pharmacy Electronically, [id number], [facility]/pharmacy #[id number] Start Date: 04/09/17 Stop Date: [...]
[2023-08-15] MEDS: oxyCODONE HCl ER 10 MG TAB.ER.12H PO ×2 (08:18→18:23)
[2023-08-15] MEDS: Lactated Ringers 1,000 ML 100 ML IVCONT ×2 (08:38→16:43)
--- NOTE | 2023-08-15 08:46 | PHA.MEDREC ---
Pharmacy Consult ? Medication Reconciliation Pharmacy has completed the medication reconciliation. Reviewed med rec done by nursing
[2023-08-15] MEDS: ceFAZolin Sodium/Dextrose,Iso 2 GM/50 ML PIGGYBACK IV ×2 (09:45→16:43)
[2023-08-15] MEDS: Acetaminophen 1,000 MG/100 ML PIGGYBACK 400 MG IV (10:20)
--- NOTE | 2023-08-15 11:23 | PM.OP ---
Brief Operative Note Date of Service: 08/15/23 Pre-op diagnosis: Right hip OA Post-op diagnosis: same Procedure: Right CHRISTEL Implants: Wendy Trident2 48 [address] Accolade2 #2 127 deg with + cermic FH Surgeon: Simone Zepeda MD Anesthesia: GETA and local Was an Straightening Press Operator used for this Procedure?: Yes Straightening Press Operator: Pippa Lima Estimated blood loss (mL): 200 IV fluids (mL): 1,000 Pathology: other Condition: stable Disposition: PACU
[2023-08-15] MEDS: HYDROmorphone HCl 0.5 MG/0.5 ML SYRINGE 0.25 MG IVPUSH ×2 (12:11→12:18)
[2023-08-15] MEDS: oxyCODONE HCl Immed Release 5 MG TABLET PO ×2 (13:50→18:23)
[2023-08-15] MEDS: Gabapentin 400 MG CAPSULE 800 MG PO ×2 (16:42→20:48)
--- NOTE | 2023-08-15 17:57 | P.CONIM_ITS ---
History of Present Illness Data of Consult Service Date: 08/15/23 Primary Care Provider: Christ Goodwin MD HPI Reason for consult: Medical care A 53 years old lady with PMH of Osteopenia, Fibromyalgia, Bipolar, Osteoarethritis of hip who presents to the hospital for elective hip replacement. She reports taking her medications at home. denies any No chest pain, palpitations, SOB, nausea, vomiting, diarrhea or urinary symptoms. Pain is under fair control at this point. Medical team was asked to evaluated the patient for her medical problems. Review of Systems 2 Review of Systems: No fever, chills or weakness No chest pain, palpitation No shortness of breath or coughing No abdominal pain, nausea or vomiting No urinary symptoms surgical site clean PMFSH Medical History Hydronephrosis, bilateral Osteopenia Renal calculi Sacroiliac joint pain Encounter for medication monitoring Palpitations Gastritis Fibromyalgia Hx of small bowel obstruction Abdominal pain Obesity (BMI 30-39.9) Bipolar depression Insomnia HLA-B27 spondyloarthropathy Osteoarthritis of multiple joints Vitamin D deficiency Migraine Allergic rhinitis Mild intermittent asthma without complication Pure hypercholesterolemia Primary osteoarthritis of right hip Lumbar spondylosis Family History Father Kidney problem Diabetes Mother Kidney malignancy Diabetes Brother Asthma Diabetes Surgical History S/P cystourethroscopy with dilation of urethral stricture (~07/21/20) History of esophagogastroduodenoscopy (EGD) Hx of unilateral oophorectomy Hx of colonoscopy Hx of cholecystectomy Hx of cystoscopy History of extraction of renal calculus History of carpal tunnel surgery History of hand surgery History of hysterectomy Social History Household Members: Significant Other Housing: House Are you a primary patient care to a significant other at home: No Do you presently have visiting nurse or other home services: Yes Alcohol intake: never Comment: counts correct Patient Tobacco Use Status: Never used Tobacco e-Cigarette/Vaping Use: Never Used Second Hand Smoke Exposure: No Advance Directives Date on File: 08/08/23 service: No Current occupational status: disabled Cognitive needs: No Hearing needs: No Vision needs: Yes Meds Allergies Allergy/AdvReac Type Severity Reaction Status Date / Time Penicillins [PENICILLINS] Allergy Severe HIVES Verified 08/15/23 07:49 Iodinated Contrast Media Allergy Intermediate HIVES Verified 08/15/23 07:49 [IV CONTRAST] peanut [PEANUTS] Allergy Intermediate HIVES Verified 08/15/23 07:49 shellfish derived Allergy Intermediate HIVES Verified 08/15/23 07:49 [SHELLFISH DERIVED] almond Allergy Mild Hives Verified 08/15/23 07:49 cat dander Allergy Mild cough/hives Verified 08/15/23 07:49 dog dander Allergy Mild cough/hives Verified 08/15/23 07:49 pollen extracts Allergy Mild runny Verified 08/15/23 07:49 nose, itchy eyes Active Medications: Current Medications Acetaminophen (Acetaminophen 325 Mg Tablet) 650 mg PO Q6H PRN PRN Reason: Pain, Mild (Pain Scale 1-3) Albuterol Sulfate (Albuterol Sulfate 90 Mcg 8 Gm Inhaler) 2 puff INHALE Q4H PRN PRN Reason: Shortness Of Breath Or Wheezing Atorvastatin Calcium (Atorvastatin Calcium 20 Mg Tablet) 20 mg PO DAILY [facility] Baclofen (Baclofen 20 Mg Tablet) 20 mg PO BID [facility] Bisacodyl (Bisacodyl 5 Mg Tablet.Dr) 10 mg PO BEDTIME PRN PRN Reason: Constipation Bupropion HCl (Bupropion Hcl Xl 150 Mg Tab.Er.24h) 150 mg PO DAILY [facility] Celecoxib (Celecoxib 200 Mg Capsule) 200 mg PO BID [facility] Clonazepam (Clonazepam 1 Mg Tablet) 1 mg PO BID [facility] Docusate Sodium (Docusate Sodium 100 Mg Capsule) 100 mg PO BID [facility] Dorzolamide/Timolol (Dorzolamide/Timolo 2.23%/0.68% 10 Ml Drbtl) 1 drop EYE- BOTH BID [facility] Duloxetine HCl (Duloxetine Hcl 60 Mg Capsule.Dr) 60 mg PO DAILY [facility] Enoxaparin Sodium (Enoxaparin Sodium 40 Mg/0.4 Ml Syringe) 40 mg SUBCUT Q24H [facility] Epinephrine (Epinephrine 1 Mg/Ml Vial) 0.3 mg IM ONCE PRN PRN Reason: anaphylaxis Famotidine (Famotidine 20 Mg Tablet) 20 mg PO BEDTIME [facility] Fluticasone Propionate (Fluticasone Propionate 250 Mcg Blst.W.Dev) 1 puff INHALE RBID [facility] Fluticasone Propionate (Fluticasone Propionate Nasal 16 Gm [place]) 1 spray NOSTRIL-B DAILY PRN PRN Reason: Congestion Gabapentin (Gabapentin 400 Mg Capsule) 800 mg PO TID [facility] Last Admin: 08/15/23 16:42 Dose: 800 mg Hydromorphone HCl (Hydromorphone Hcl 0.5 Mg/0.5 Ml Syringe) 0.25 mg IVPUSH Q4H PRN; Protocol PRN Reason: Pain, Severe (Pain Scale 7-10) Lactated Ringer's (Lr) 1,000 mls @ 100 mls/hr IVCONT .Q10H [facility] Last Admin: 08/15/23 16:43 Dose: 100 mls/hr Lactated Ringer's (Lr) 1,000 mls @ 100 mls/hr IVCONT .Q10H [facility] Last Admin: 08/15/23 16:47 Dose: Not Given Loratadine (Loratadine 10 Mg Tablet) 10 mg PO DAILY [facility] Montelukast Sodium (Montelukast Sodium 10 Mg Tablet) 10 mg PO BEDTIME [facility] Non-Formulary Medication (Bimatoprost [Lumigan]) 1 drop EYE-BOTH BEDTIME [facility] Non-Formulary Medication (Cyclosporine [Restasis]) 1 drop EYE-BOTH Q12H [facility] Non-Formulary Medication (Naratriptan) 2.5 mg PO DAILY MRX1 [facility] Omeprazole (Omeprazole 20 Mg Capsule.Dr) 20 mg PO DAILY@0630 [facility] Ondansetron HCl (Ondansetron Hcl 4 Mg/2 Ml Vial) 4 mg IVPUSH Q8H PRN PRN Reason: Nausea and Vomiting Oxycodone HCl (Oxycodone Hcl Immed Release 5 Mg Tablet) 5 mg PO Q4H PRN PRN Reason: Pain, Moderate(Pain Scale 4-6) Oxycodone HCl (Oxycodone Hcl Er 10 Mg Tab.Er.12h) 10 mg PO BID [facility] Sodium Chloride (0.9 % Sodium Chloride Flush 3 Ml Syringe) 3 ml IVFLUSH QSHIFT [facility] Last Admin: 08/15/23 17:03 Dose: Not Given Tramadol HCl (Tramadol Hcl 50 Mg Tablet) 50 mg PO BID [facility] Vitamin D (Cholecalciferol (Vitamin D3) 25 Mcg Tablet) 50 mcg PO DAILY [facility] Zolpidem Tartrate (Zolpidem Tartrate 5 Mg Tablet) 5 mg PO BEDTIME PRN PRN Reason: Insomnia Home Medications Medication Instructions Recorded Confirmed Last Taken Type cetirizine 10 mg tablet (Zyrtec) 10 mg PO DAILY 07/06/20 08/03/23 08/14/23 History clonazepam 1 mg tablet (Klonopin) 1 mg PO BID 07/06/20 08/03/23 08/15/23 06:00 History montelukast 10 mg tablet 10 mg PO BEDTIME 07/06/20 08/14/23 08/14/23 History (Singulair) naratriptan 2.5 mg tablet 2.5 mg PO DAILY MRX1 07/06/20 08/03/23 08/02/23 History cyclosporine 0.05 % eye drops in a 1 drp ophthalmic (eye) Q12H 01/06/21 08/03/23 08/15/23 06:00 History dropperette (Restasis) dorzolamide 22.3 mg-timolol 6.8 1 drp ophthalmic (eye) BID 05/08/22 08/03/23 08/15/23 06:00 History mg/mL eye drops bupropion HCl 150 mg 24 hr tablet, 150 mg PO DAILY 09/18/22 08/15/23 08/14/23 History extended release epinephrine 0.3 mg/0.3 mL 0.3 mg IM ONCE PRN anaphylaxis 09/18/22 08/03/23 Unknown History injection, auto-injector bimatoprost 0.01 % eye drops 1 drp ophthalmic (eye) BEDTIME 03/26/23 08/03/23 08/14/23 History (Lumigan) omalizumab 150 mg subcutaneous 150 mg subcut Q3W 05/02/23 08/03/23 08/02/23 History solution (Xolair) bisacodyl 5 mg tablet,delayed 10 mg PO BEDTIME PRN Constipation 08/03/23 08/14/23 Unknown History release (Dulcolax (bisacodyl)) fluticasone propionate 50 1 spray intranasal DAILY PRN 08/03/23 08/14/23 Unknown History mcg/actuation nasal Congestion spray,suspension gabapentin 800 mg tablet 800 mg PO TID 08/03/23 08/14/23 08/15/23 06:00 History Physical Exam 2 Vital Signs and Narrative: Vital Signs: Last Vital Signs Temp 97.1 F 08/15/23 15:46 Pulse 71 08/15/23 15:46 Resp 18 08/15/23 15:46 BP 116/65 08/15/23 15:46 Pulse Ox 95 08/15/23 15:46 O2 Del Method Room Air 08/15/23 15:46 O2 Flow Rate 2 08/15/23 14:24 BMI result Body Mass Index 37.3 Const: Other: Constitutional : Awake, interactive, not in distress Neck : Normal inspection, Supple Cardiovascular : RRR, no JVP, no lower extremity edema Respiratory : good bilateral air entry, no crackles, wheezes or rhonchi Gastrointestinal: soft, lax, Normal bowel sounds, Non tender Skin : Warm, Dry, Right hip in dressing with no erythema or drainage Neurological : Alert & oriented x3, No focal deficit Results Labs 08/16/23 05:40 08/16/23 05:40 Assessment and Plan (1) Osteoarthritis of right hip: Qualifiers: Osteoarthritis type: primary Qualified Code(s): M16.11 - Unilateral primary osteoarthritis, right hip Status: Acute Plan A 53 years old lady with PMH of Osteopenia, Fibromyalgia, Bipolar, Osteoarethritis of hip who presents to the hospital for elective hip replacement. Right hip osteoarthritis POD 0 [facility] Orthopedic team following pain management PT Depression Continue home medications COPD Home inhalor PRN nebulizer Fibromyalgia Continue Gabapentin HLD Statin Thank you for the consult, will sign off. please contact hospitalist team for any further questions
[2023-08-15] MEDS: Acetaminophen 325 MG TABLET 650 MG PO (18:23)
[2023-08-15] MEDS: Celecoxib 200 MG CAPSULE PO (20:47)
[2023-08-15] MEDS: clonazePAM 1 MG TABLET PO (20:48)
[2023-08-15] MEDS: Baclofen 20 MG TABLET PO (20:48)
[2023-08-15] MEDS: Docusate Sodium 100 MG CAPSULE PO (20:48)
[2023-08-15] MEDS: traMADoL HCL 50 MG TABLET PO (20:48)
[2023-08-15] MEDS: Dorzolamide/Timolo 2.23%/0.68% 10 ML DRBTL 1 DROP EYE-BOTH (20:49)
[2023-08-15] MEDS: Montelukast Sodium 10 MG TABLET PO (20:49)
[2023-08-15] MEDS: Famotidine 20 MG TABLET PO (20:49)
[2023-08-15] MEDS: Fluticasone Propionate Nasal 16 GM SPRAY 1 SPRAY NOSTRIL-B (20:49)
[2023-08-16] MEDS: HYDROmorphone HCl 0.5 MG/0.5 ML SYRINGE 0.25 MG IVPUSH (00:47)
[2023-08-16] MEDS: Lactated Ringers 1,000 ML 100 ML IVCONT (02:12)
[2023-08-16 03:30] VITALS: BP 137/71; PULSE 66; RESP 19; TEMP 36.2; O2SAT 95
[2023-08-16] MEDS: Omeprazole 20 MG CAPSULE.DR PO (06:10)
[2023-08-16 07:01] LABS: MANUAL DIFF FLAG NO
[2023-08-16 07:13] LABS: Basophils Percent Auto 0.2 % (0-2); Eosinophils Percent Auto 0.2 % (0-4); Hematocrit 29.9 % (37.0-47.0); Hemoglobin 9.1 g/dl (12.0-16.0); Imm Gran Abs Auto 0.07 X10*3/uL (0.00-0.03); Imm Gran Pct Auto 0.5 % (0.0-0.4); Lymphocytes Absolute Auto 1.2 X10*3/uL (1.2-4.9); Lymphocytes Percent Auto 8.8 % (20-40); Mean Corpuscular HGB Conc 30.4 g/dl (31.0-35.0); Mean Corpuscular Hemoglobin 26.3 pg (27.0-33.0); Mean Corpuscular Volume 86.4 fL (80.0-98.0); Mean Platelet Volume 10.8 fL (9.4-12.3); Monocytes Absolute Auto 0.9 X10*3/uL (0.1-1.2); Monocytes Percent Auto 6.9 % (2-11); Neutrophils Absolute Auto 10.9 x10*3/uL (2.0-8.3); Neutrophils Percent Auto 83.4 % (45-73); Platelet Count 338 X10*3/uL (160-400); Red Blood Count 3.46 X10*6/uL (4.20-5.50); Red Cell Distribution Width 14.7 % (11.0-16.0); White Blood Count 13.1 X10*3/uL (4.8-10.8)
[2023-08-16 07:38] LABS: Anion Gap 10 (12-20); Blood Urea Nitrogen 10 mg/dL (9-16); Calcium 9.1 mg/dL (8.4-10.2); Carbon Dioxide 24 mmol/L (22-29); Chloride 111 mmol/L (96-108); Creatinine Clr Calc Pharmacy 85.8; Estimated Glomerular Filt Rate > 60; Glucose Fasting 101 mg/dL (60-99); Potassium 4.2 mmol/L (3.3-5.1); Sodium 141 mmol/L (135-145)
[2023-08-16 08:00] VITALS: BP 150/75; PULSE 86; RESP 18; TEMP 36.1; O2SAT 99
[2023-08-16] MEDS: Fluticasone Propionate 250 MCG BLST.W.DEV 1 PUFF INHALE (08:14)
[2023-08-16 08:15] VITALS: PULSE 66; RESP 19; O2SAT 94
[2023-08-16] MEDS: Gabapentin 400 MG CAPSULE 800 MG PO (08:19)
[2023-08-16] MEDS: Celecoxib 200 MG CAPSULE PO (08:19)
[2023-08-16] MEDS: Atorvastatin Calcium 20 MG TABLET PO (08:19)
[2023-08-16] MEDS: Cholecalciferol (Vitamin D3) 25 MCG TABLET 50 MCG PO (08:19)
[2023-08-16] MEDS: Docusate Sodium 100 MG CAPSULE PO (08:20)
[2023-08-16] MEDS: Baclofen 20 MG TABLET PO (08:20)
[2023-08-16] MEDS: oxyCODONE HCl ER 10 MG TAB.ER.12H PO (08:20)
[2023-08-16] MEDS: clonazePAM 1 MG TABLET PO (08:20)
[2023-08-16] MEDS: Dorzolamide/Timolo 2.23%/0.68% 10 ML DRBTL 1 DROP EYE-BOTH (08:21)
[2023-08-16] MEDS: traMADoL HCL 50 MG TABLET PO (08:21)
[2023-08-16] MEDS: Loratadine 10 MG TABLET PO (08:21)
[2023-08-16] MEDS: buPROPion HCl XL 150 MG TAB.ER.24H PO (08:21)
--- NOTE | 2023-08-16 09:30 | P.DS_ITS ---
DS: Providers Provider Date of Service: 08/16/23 Date of admission: 08/15/23 07:48 Primary care physician: Christ Goodwin MD Consults: 08/15/23 15:48 Consult to Hospitalist Routine Comment: Consulting Provider: Hospitalist Reason For Exam: Routine medical management DS: Diagnosis Discharge Diagnosis (1) Osteoarthritis of right hip: Status: Acute DS: Summary Hospital Course Hospital Course: The patient underwent a successful rght total hip arthroplasty, they were transferred to PACU and then to the floor to recover. During their stay, their vitals were stable, afebrile at 97.0. Labs were unremarkable, H/H 9.1/29.9. POD 1 they were started on Aspirin 325mg po bid for DVT ppx, they also received Physical Therapy services twice a day. Prior to discharge, their dressing was clean dry and intact, and the plan was to be discharged home with VNA services. Time Attestation Discharge coordination time: Less than 30 minutes Quality: Safe Use of Opioids Does Pt have an Active Cancer Diagnosis on the Problem List?: No Quality: Stroke Does the patient have a stroke diagnosis?: No Physical Exam Vital Signs: Vital Signs: Last Vital Signs Temp 97.0 F 08/16/23 08:00 Pulse 66 08/16/23 08:15 Resp 19 08/16/23 08:15 BP 150/75 H 08/16/23 08:00 Pulse Ox 99 08/16/23 08:00 O2 Del Method Room Air 08/16/23 08:00 O2 Flow Rate 2 08/15/23 14:24 BMI result Body Mass Index 37.3 Const: General: cooperative, healthy appearing and no acute distress Resp: Effort & Inspection: normal respiratory effort and able to speak in complete sentences Cardio: Rate: regular rate Peripheral pulses: Peripheral pulses 2+ throughout GI: Palpation (GI): Soft to palpation Skin: Lesions: no lesions Rashes: no rashes Extrem: Other: right hip dressing is c/d/i. Able to dorsi/plantar flex. Calf is supple and nontender. Sensation intact. Pedal pulse intact. DS: Data Data Completed and Pending Pending studies at discharge: Pending at discharge 08/15/23 11:09 Surgical [PTH] Routine Labs on day of discharge: Laboratory Results - last 24 hr 08/16/23 05:40 WBC 13.1 H RBC 3.46 L Hgb 9.1 L Hct 29.9 L MCV 86.4 MCH 26.3 L MCHC 30.4 L RDW 14.7 Plt Count 338 MPV 10.8 Immature Gran % (Auto) 0.5 H Neut % (Auto) 83.4 H Lymph % (Auto) 8.8 L Ashley % (Auto) 6.9 Eos % (Auto) 0.2 Baso % (Auto) 0.2 Lymph # (Auto) 1.2 Ashley # (Auto) 0.9 Eos # (Auto) 0.0 Baso # (Auto) 0.0 Abs Immat Gran (auto) 0.07 H Absolute Neuts (auto) 10.9 H Absolute Nucleated RBC 0.000 Nucleated RBC % (auto) 0.0 Sodium 141 Potassium 4.2 Chloride 111 H Carbon Dioxide 24 Anion Gap 10 L BUN 10 Creatinine 0.75 Estim Creat Clear Calc 85.8 Estimated GFR > 60 Fasting Glucose 101 H Calcium 9.1 Discharge Plan Discharge Anticipated Discharge Date/Time: 08/16/23 15:22 Patient Disposition: Hospice - Home Discharge Diagnosis: s/p RTHA Referrals: Aki Beck PA-C [Physician Hemodialysis Technician] - 08/30/23 12:30 pm Discharge Medications: New celecoxib 200 mg Capsule 200 mg PO BID 30 Days Qty: 60 0RF acetaminophen 325 mg Tablet 650 mg PO Q6H PRN (Reason: Pain, Mild (Pain Scale 1-3)) 30 Days Qty: 240 0RF docusate sodium 100 mg Capsule 100 mg PO BID 30 Days Qty: 60 0RF oxycodone 5 mg Tablet 5 mg PO Q4H PRN (Reason: Pain, Moderate(Pain Scale 4-6)) 7 Days Qty: 42 0RF Rx Instructions: Partial Fill upon patient request. enoxaparin 40 mg/0.4 mL Syringe 40 mg subcut Q24H 42 Days Qty: 16.8 0RF Continued duloxetine 60 mg capsule,delayed release(DR/EC) 60 mg PO DAILY Qty: 90 1RF zolpidem [Ambien] 10 mg tablet 10 mg PO BEDTIME PRN (Reason: Insomnia) 30 Days Qty: 30 0RF albuterol sulfate 90 mcg/actuation HFA aerosol inhaler 2 puff inhalation Q4-6H PRN (Reason: Shortness Of Breath Or Wheezing) Qty: 8.5 3RF Flovent HFA 220 mcg/actuation HFA aerosol inhaler 1 puff inhalation BID Qty: 12 3RF atorvastatin 20 mg tablet 20 mg PO DAILY 90 Days Qty: 90 1RF tramadol 50 mg tablet 50 mg PO BID Qty: 60 3RF (DME) walker Misc See Rx Instructions .MEDSUPPLY Qty: 1 0RF Rx Instructions: Folding Front wheeled walker pantoprazole 40 mg tablet,delayed release (DR/EC) 40 mg PO QAM Qty: 90 2RF baclofen 20 mg tablet 20 mg PO BID 30 Days Qty: 60 8RF Rx Instructions: take 1/2 of the pill if there are side effects with full dose. ondansetron 4 mg tablet,disintegrating 4 mg PO Q8H 3 Days Qty: 9 0RF gabapentin 800 mg tablet 800 mg PO TID bisacodyl [Dulcolax (bisacodyl)] 5 mg tablet,delayed release (DR/EC) 10 mg PO BEDTIME PRN (Reason: Constipation) fluticasone propionate 50 mcg/actuation spray,suspension 1 spray intranasal DAILY PRN (Reason: Congestion) (DME) SHOWER CHAIR See Rx Instructions .Route .MEDSUPPLY Qty: 1 0RF Rx Instructions: As directed naratriptan 2.5 mg tablet 2.5 mg PO DAILY MRX1 Rx Instructions: take 1 tab at onset of headache; if no relief may repeat 1 tab after at least 4 hrs; max = 2 tabs/24 hrs PO clonazepam [Klonopin] 1 mg tablet 1 mg PO BID montelukast [Singulair] 10 mg tablet 10 mg PO BEDTIME cetirizine [Zyrtec] 10 mg tablet 10 mg PO DAILY Restasis 0.05 % dropperette 1 drp ophthalmic (eye) Q12H Xolair 150 mg recon soln 150 mg subcut Q3W cholecalciferol (vitamin D3) 50 mcg (2,000 unit) capsule 50 mcg PO DAILY Qty: 90 3RF dorzolamide-timolol 22.3-6.8 mg/mL drops 1 drp ophthalmic (eye) BID famotidine 20 mg tablet 20 mg PO BEDTIME 90 Days Qty: 90 1RF bupropion HCl 150 mg tablet extended release 24 hr 150 mg PO DAILY epinephrine 0.3 mg/0.3 mL auto-injector 0.3 mg IM ONCE PRN (Reason: anaphylaxis) Lumigan 0.01 % drops 1 drp ophthalmic (eye) BEDTIME Discharge Orders: Discharge Order (Routine); Ordered 08/16/23 Ordered By: Pippa Lima Diet: Advance to usual diet Activity on Discharge: Use cane or walker Stand Alone Forms: Patient Portal Discharge page Care Plan Goals: restore fxn to right hip Health Concerns: none Plan of Treatment: Physical Therapy for total hip arthroplasty: posterior precautions, gait training, ROM, strength Limit stair climbing No showering, no tub bath-keep dressing clean, dry and intact No driving x6 weeks Continue Lovenox x6 weeks Follow up with [facility] in 2 weeks Assessment: stable for d/c
--- NOTE | 2023-08-16 09:32 | W.MHC.F2F ---
Service Date Service Date: 08/16/23 Encounter Date of encounter: 08/16/23 Reasons for Services Signs and symptoms assessed: s/p RTHA. Pt. is considered homebound due to recent surgery. Unable to drive, poor balance, poor gait mechanics. Reason for physical therapy: home safety and mobility, therapeutic exercises, restore joint function, gait/transfer training, assess need for DME and ADL training Reason for occupational therapy: home safety and mobility, therapeutic exercises, restore joint function, gait/transfer training, assess need for DME and ADL training Homebound: Leaving the home is medically contraindicated at this time without the asist of a device and/or another person due th the listed conditions above and below. Reason homebound: unsteady gait / fall risk, leg weakness, pain with ambulation, pain with transfers, poor balance / fall risk and unable to drive Certification: Based on the above findings, I certify that this patient is confined to the home and needs intermittent custodial care, physical therapy and/or speech therapy, or continues to need occupational therapy. The patient is under my care, and I have initiated the establishment of the plan of care. The patient will be followed by a physician who will periodically review the plan of care. Time Spent With Patient Time: Total time managing care of this patient today ____ minutes.
[2023-08-16] MEDS: Enoxaparin Sodium 40 MG/0.4 ML SYRINGE SUBCUT (10:35)
--- NOTE | 2023-08-16 11:36 | MHC.CM.PN ---
PT WILL DC HOME TODAY WITH [facility]
--- NOTE | 2023-08-16 12:06 | MHC.CM.PN ---
pt lives with boyfrienmarilyn who iis her electronic court recorder she will be receieving hvns when dcd she has a hcp pt is dcd today
--- NOTE | 2023-08-16 15:22 | HO.POSTANES ---
Post Anesthesia Evaluation Post Anesthesia Evaluation Date of Service: 08/16/23 Vital Signs: Vital Signs Temp Pulse Resp BP Pulse Ox O2 Del Method 08/16/23 08:15 66 19 08/16/23 08:00 97.0 F 86 18 150/75 H 99 Room Air 08/16/23 03:30 97.2 F 66 19 137/71 95 Room Air Anesthesia: General Mental Status: Awake Pain Control: Satisfactory Nausea/Vomiting: None Hydration: Adequate Anesthesia-Related Issues: No Anes. Related Issues
--- NOTE | 2023-08-17 16:28 | W.PM.OPN ---
Operative Note Operative Note Date of Service: 08/15/23 Narrative: Date of Service: 08/15/23 Pre-op diagnosis: Right hip OA Post-op diagnosis: same Procedure: Right [facility] Implants: [place] Trident2 48 [place] Accolade2 #2 127 deg with +4/32 cermic FH Surgeon: Simone Zepeda MD Anesthesia: GETA and local Was an Supervisor Electric used for this Procedure?: Yes Supervisor Electric: Pippa Lima Estimated blood loss (mL): 200 IV fluids (mL): 1,000 Pathology: other Condition: stable Disposition: PACU Procedure in detail: Patient was brought into the operating room and placed in the right lateral decubitus position. All bony prominences were well padded and the limb was prepped and draped in standard sterile fashion. A time-out was called to identify proper site procedure proper surgeon IV antibiotics and 1 g of transaxemic acid were administered. I began by making a curvilinear incision over the posterolateral aspect of the greater trochanter. Dissection was taken down to the tensor fascia which was incised in line with the incision and a Charnley retractor was placed. Cautery was used to maintain hemostasis. The hip was internally rotated and the external rotators were identified. The vessels were cauterized and a full-thickness capsular/external rotator layer was developed starting just proximal to the piriformis. This layer was tagged and a dull Hohmann retractor was placed underneath the neck in the hip was dislocated. A neck cut was made 1 cm proximal to the lesser trochanter and the head and neck were removed and measured 44mm on the back table. The head was deformed. I then removed the labrum and cauterized the fovea. I started with a 40 reamer and medialized to the inner table. I sequentially reamed up to a size 48 and impacted a 48mm cup at 45 degrees of inclination and 25 degrees of version. She had superior acetabular wear resulting in limited superior coverage and, even theough the cup felt stable, I added two acetabular screws using standard AO technique. I then placed a 10 deg posterior lipped liner and turned my attention to the femur. I identified the piriformis insertion and used this as a starting point for my obinna cutter. The medius tendon was protected with a Hibs retractor. A Charnley awl was inserted in the canal and a curved curette used to remove the lateral bone. I irrigated copiously. I then sequentially broached in the patient's natural version to a size 2 and placed my trial implants. I used a #2/127/+4 based on my pre-operative template. Using a trail head I took the hip through range of motion. I was satisfied with the stability and length. I removed all instrumentation and copiously irrigated. I placed my final femoral implant and again took the hip through range of motion and was satisfied with the stability and length. The final +4 implant was impacted in place and the hip was reduced. I then irrigated for 3 minutes with iodine and placed 1 g of local transaxemic acid. I performed a capsular closure with 2.0 fiberwire, Erma's fascia with 0 Vicryl, subcuticular with 2-0 Vicryl and the skin with karrie. Patient was placed into a sterile dressing. Patient was extubated brought to the recovery room in stable condition. There were no known complications.
== END 2023-08-16 14:29 | disposition home health service (06) | DRG 324 ==
LOC: HO.SSSA 07:50 → HO.S3 15:12
PROVIDERS: Physician Assistant; Absent Provider Internal Medicine; Admitting Provider Orthopaedic Surgery; PCP Internal Medicine; Visit Provider Orthopaedic Surgery
PROC: 0SR90JA Replacement of Right Hip Joint with Synthetic Substitute, Uncemented, Open Approach (ICD-10-PCS; CPT 27130; principal; 2023-08-15 09:20)
DX: M16.11 Unilateral primary osteoarthritis, right hip (principal); E78.5 Hyperlipidemia, unspecified; J44.9 Chronic obstructive pulmonary disease, unspecified; F32.A Depression, unspecified; J45.20 Mild intermittent asthma, uncomplicated; M79.7 Fibromyalgia; Z79.899 Other long term (current) drug therapy; Z91.041 Radiographic dye allergy status
CPT/HCPCS: 36415; 72170; 80048; 80053; 81001; 85025; 85610; 85730; 86850; 86900; 86901; 87086; 87147; 87640; 87641; 88304; 88311; 93005; 94640; 97110; 97161; 97165; C1713; C1776; J0131; J0690; J1100; J1170; J1650; J1920; J2250; J2405; J2550; J2704; J2795; J3010; J7120

== ENCOUNTER → 2023-08-15 07:48 | Outpatient (BNV) | payer OTHER, SELFPAY | PROVIDERS: Absent Provider Internal Medicine; Admitting Provider Orthopaedic Surgery; PCP Internal Medicine; Visit Provider Orthopaedic Surgery | DX: Z47.1 Aftercare following joint replacement surgery (principal); Z96.641 Presence of right artificial hip joint | CPT/HCPCS: 27130; 99024; 99212; G0180 ==

== ENCOUNTER → 2023-08-15 07:48 | Outpatient (BNV) | payer OTHER, SELFPAY | PROVIDERS: Absent Provider Internal Medicine; Admitting Provider Orthopaedic Surgery; PCP Internal Medicine; Visit Provider Student in an Organized Health Care Education/Training Program | DX: M16.11 Unilateral primary osteoarthritis, right hip (principal) | CPT/HCPCS: 99221 ==

== ENCOUNTER 2023-08-27 10:34 | Inpatient (IN) | payer OTHER, SELFPAY ==
--- NOTE | ~2023-08-27 | CT_ITS ---
EXAMINATION: CT ABDOMEN AND PELVIS WITHOUT CONTRAST CLINICAL INFORMATION: Abdominal pain, concern for is medial COMPARISON: None available. CT abdomen pelvis 08/03/2023 TECHNIQUE: Multidetector volumetric imaging was performed from the superior aspect of the liver through the pubic symphysis. Sagittal and coronal reformatted images were obtained on the technologist's workstation. This CT examination was performed using dose optimization techniques as appropriate, variously including the following: *Automated exposure control *Adjustment of mA and/or kV according to patient size (this includes techniques or standardized protocols for targeted exams where dose is matched to indication/reason for exam; i.e. extremities or head) *Use of iterative reconstruction technique DLP: 758 mGy-cm FINDINGS: LUNG BASES: The visualized lung bases are unremarkable. LIVER, GALLBLADDER, AND BILIARY TREE: The liver is normal in size, shape, and attenuation. No focal hepatic lesion or biliary ductal dilatation is present. The gallbladder has been surgically removed. PANCREAS: Unremarkable. SPLEEN: Unremarkable. ADRENAL GLANDS: Unremarkable. KIDNEYS AND URETERS: The kidneys are normal in size, shape, and attenuation. There there are several radiopaque calculi mid and lower pole right kidney largest fibroid calculi lower pole right kidney is noted. No radiopaque calculi seen left kidney. I would is moderate hydroureteronephrosis with dilated ureter extending to of left upper pelvis where multiple surgical sutures are seen, likely cause of adhesions and obstruction. No radiopaque calculi seen in the distal left ureter. BLADDER: There is mild bladder wall thickening but no radiopaque calculi seen. There is a soft tissue calcification in proximal ureter similar to previous study. GASTROINTESTINAL TRACT: There are prominent fluid-filled small bowel loops similar previous study. The colon is decompressed with scattered stool in the right colon. There are surgical sutures and scarring in the lower pelvis likely cause or partial small bowel obstruction from lesions. ABDOMINAL WALL: No significant hernia is appreciated. LYMPH NODES: Normal. VASCULAR: There is atherosclerotic calcification of abdominal aorta without aneurysmal dilatation. PELVIC VISCERA: There is no free fluid or free air. OSSEOUS STRUCTURES: There is new total right hip prosthesis with immediate postsurgical changes along the right lateral hip. There are streak artifacts secondary to prosthesis restricting evaluation. CT/CT abdomen pelvis wo IV con IMPRESSION: Moderate left hydronephrosis similar to previous study with likely cause of obstruction in the left pelvis secondary to postsurgical karrie and adhesions. Similarly there is dilated small bowel loops with air-fluid levels extending to the right lower pelvis where there are multiple surgical karrie, likely obstruction secondary to adhesions. Nonobstructive radiopaque right renal calculi. Fleischner guidelines were followed.
--- NOTE | ~2023-08-27 | XR_ITS ---
EXAMINATION: XR ABDOMEN KUB CLINICAL INDICATION: Follow-up contrast for small bowel obstruction. COMPARISON: CT abdomen pelvis August 27, 2023 TECHNIQUE: AP view of the abdomen. FINDINGS: No dilated air-filled loops of small bowel to suggest an obstructive process. The colon is normal in caliber and has oral contrast throughout. There are surgical clips within the right upper abdomen consistent with prior cholecystectomy. Multiple surgical clips within the pelvis. Partially visualized right hip prosthesis in addition to right hip skin karrie. XR/XR abdomen 1V IMPRESSION: No radiographic evidence to suggest an obstructive process.
[2023-08-27 10:40] VITALS: BP 165/78; PULSE 86; O2SAT 98
--- NOTE | 2023-08-27 10:56 | ED.GENADULT ---
HPI - General Adult General Chief complaint: Abdominal Pain Stated complaint: ABD PAIN W/NAUSEA/VOMITING PER EMS Time Seen by Provider: 08/27/23 10:55 Source: patient and EMS Mode of arrival: EMS Limitations: no limitations History of Present Illness HPI narrative: Patient is a 53 year old assigned female at with a history of migraines, fibromyalgia, and recent right hip replacement presenting to the emergency department today with upper abdominal pain, nausea, and vomiting. Patient states that at 0500 this morning she woke up with nausea, vomiting, and epigastric pain. Patient denies any dizziness, lightheadedness, fever, chills, blurry vision, double vision, loss of vision, chest pain, difficulty breathing, shortness of breath, back pain, night sweats, pain with urination, increased urinary frequency, increased urinary urgency, blood in her urine or stool, syncope or a near syncopal episode, recent trauma or falls, bowel incontinence, bladder incontinence, bowel retention, bladder retention, or any other complaints at this time. Onset (ago): hour(s) Location: abdomen Relieving factors: none Exacerbating factors: none Associated symptoms: nausea/vomiting Treatments prior to arrival: none Related Data Home Medications Medication Instructions Recorded Confirmed cetirizine 10 mg tablet (Zyrtec) 10 mg PO DAILY PRN allergies 07/06/20 08/27/23 clonazepam 1 mg tablet (Klonopin) 1 mg PO BID 07/06/20 08/27/23 montelukast 10 mg tablet 10 mg PO BEDTIME 07/06/20 08/27/23 (Singulair) naratriptan 2.5 mg tablet 2.5 mg PO DAILY MRX1 PRN Headache 07/06/20 08/27/23 cyclosporine 0.05 % eye drops in a 1 drp ophthalmic (eye) Q12H 01/06/21 08/27/23 dropperette (Restasis) dorzolamide 22.3 mg-timolol 6.8 1 drp ophthalmic (eye) BID 05/08/22 08/27/23 mg/mL eye drops epinephrine 0.3 mg/0.3 mL 0.3 mg IM ONCE PRN anaphylaxis 09/18/22 08/27/23 injection, auto-injector bimatoprost 0.01 % eye drops 1 drp ophthalmic (eye) BEDTIME 03/26/23 08/27/23 (Lumigan) omalizumab 150 mg subcutaneous 150 mg subcut Q3W 05/02/23 08/27/23 solution (Xolair) bisacodyl 5 mg tablet,delayed 10 mg PO BEDTIME PRN Constipation 08/03/23 08/27/23 release (Dulcolax (bisacodyl)) fluticasone propionate 50 1 spray intranasal DAILY PRN 08/03/23 08/27/23 mcg/actuation nasal Congestion spray,suspension gabapentin 800 mg tablet 800 mg PO BID 08/03/23 08/27/23 atorvastatin 20 mg tablet 20 mg PO BID 08/27/23 08/27/23 docusate sodium 100 mg capsule 100 mg PO BID PRN Constipation 08/27/23 08/27/23 famotidine 20 mg tablet 20 mg PO BEDTIME PRN Heartburn 08/27/23 08/27/23 mometasone 100 mcg/actuation HFA 1 puff inhalation BID PRN breathing 08/27/23 08/27/23 aerosol inhaler (Asmanex HFA) ondansetron 4 mg disintegrating 4 mg PO Q8H PRN Nausea 08/27/23 08/27/23 tablet Previous Rx's Medication Instructions Recorded zolpidem 10 mg tablet (Ambien) 10 mg PO BEDTIME PRN Insomnia 30 12/28/21 days #30 tabs albuterol sulfate 90 mcg/actuation 2 puff inhalation Q4-6H PRN 09/29/22 aerosol inhaler Shortness Of Breath Or Wheezing #8.5 grams SHOWER CHAIR #1 ea 01/23/23 fluticasone propionate 220 1 puff inhalation BID #12 grams 01/24/23 mcg/actuation HFA aerosol inhaler (Flovent HFA) tramadol 50 mg tablet 50 mg PO BID #60 tabs 08/01/23 walker #1 ea 08/02/23 baclofen 20 mg tablet 20 mg PO BID 30 days #60 tabs 08/13/23 acetaminophen 325 mg tablet 650 mg (2 x 325 mg) PO Q6H PRN 08/16/23 Pain, Mild (Pain Scale 1-3) 30 days #240 tabs celecoxib 200 mg capsule 200 mg PO BID 30 days #60 caps 08/16/23 enoxaparin 40 mg/0.4 mL 40 mg (0.4 mL) subcut Q24H 42 days 08/16/23 subcutaneous syringe #16.8 mL Allergies Allergy/AdvReac Type Severity Reaction Status Date / Time Penicillins [PENICILLINS] Allergy Severe HIVES Verified 08/15/23 07:49 Iodinated Contrast Media Allergy Intermediate HIVES Verified 08/15/23 07:49 [IV CONTRAST] peanut [PEANUTS] Allergy Intermediate HIVES Verified 08/15/23 07:49 shellfish derived Allergy Intermediate HIVES Verified 08/15/23 07:49 [SHELLFISH DERIVED] almond Allergy Mild Hives Verified 08/15/23 07:49 cat dander Allergy Mild cough/hives Verified 08/15/23 07:49 dog dander Allergy Mild cough/hives Verified 08/15/23 07:49 pollen extracts Allergy Mild runny Verified 08/15/23 07:49 nose, itchy eyes Review of Systems Constitutional: Constitutional: Reports no additional constitutional complaints, Denies chills, Denies fever(s) and Denies night sweats Eyes: Eyes: Reports no additional eye complaints, Denies blurry vision, Denies change in vision, Denies diplopia, Denies eye discharge, Denies loss of vision and Denies eye pain ENT: Denies dizziness Cardiovascular: Cardiovascular: Reports no additional cardiovascular complaints, Denies chest pain, Denies lightheadedness, Denies Loss of Consciousness and Denies dyspnea Respiratory: Respiratory: Reports no additional respiratory complaints and Denies dyspnea Gastrointestinal: Gastrointestinal: Reports no additional gastrointestinal complaints, Reports abdominal pain, Denies melena, Denies hematochezia, Denies change in bowel habits, Denies change in stool character, Reports nausea and Reports vomiting Genitourinary: Genitourinary: Denies hematuria, Denies urinary frequency, Denies dysuria, Denies urinary incontinence, Denies urinary hesitancy and Denies urinary urgency Musculoskeletal: Musculoskeletal: Reports no additional musculoskeletal complaints, Denies numbness and Denies tingling Neurologic: Denies dizziness, Denies loss of vision, Denies numbness and Denies tingling Psychiatric: Psychiatric: Reports no additional psychiatric complaints Endocrine: Endocrine: Reports no additional endocrine complaints Hematologic/Lymphatic: Hematologic/Lymphatic: Reports no additional hematologic/lymphatic complaints Allergic/Immunologic: Allergic/Immunologic: Reports no additional allergic/immunologic complaints PMFSH Past Medical History Attestation statement: The following information was validated with the patient. Source: old records reviewed and nursing notes reviewed Onset Date is defined in the Problem List Problems that require an onset date and time if occurred within 24 hrs of arrival to the ED Aortic Dissection and Rupture; Neurologic impairment; Cardiopulmonary Arrest; Endotracheal Intubation; Insertion or Replacement of Mechanical Circulatory Assist Device Medical History Hydronephrosis, bilateral Osteopenia Renal calculi Sacroiliac joint pain Encounter for medication monitoring Palpitations Gastritis Fibromyalgia Hx of small bowel obstruction Abdominal pain Obesity (BMI 30-39.9) Bipolar depression Insomnia HLA-B27 spondyloarthropathy Osteoarthritis of multiple joints Vitamin D deficiency Migraine Allergic rhinitis Mild intermittent asthma without complication Pure hypercholesterolemia Primary osteoarthritis of right hip Lumbar spondylosis Surgical History S/P cystourethroscopy with dilation of urethral stricture (~07/21/20) History of esophagogastroduodenoscopy (EGD) Hx of unilateral oophorectomy Hx of colonoscopy Hx of cholecystectomy Hx of cystoscopy History of extraction of renal calculus History of carpal tunnel surgery History of hand surgery History of hysterectomy Family History Family History Father Kidney problem Diabetes Mother Kidney malignancy Diabetes Brother Asthma Diabetes Social History Social History Household Members: Significant Other Housing: House Are you a primary career guidance technician to a significant other at home: No Do you presently have visiting nurse or other home services: Yes Alcohol intake: never Comment: counts correct Patient Tobacco Use Status: Never used Tobacco Smoked in Last 30 Days: No e-Cigarette/Vaping Use: Never Used Second Hand Smoke Exposure: No Use of substances other than those prescribed or required for medical reasons: No Advance Directives: Yes Advance Directives on File: Yes Advance Directives Date on File: 08/08/23 Patient : No service: No Current occupational status: disabled Cognitive needs: No Hearing needs: No Vision needs: Yes Physical Exam ED Vital Signs: Vital Signs - 24 hr 08/27/23 10:57 08/27/23 11:00 08/27/23 12:00 Temperature 98.1 F Pulse Rate 87 94 Respiratory Rate 18 20 16 Blood Pressure 148/73 H 155/83 H Pulse Oximetry 95 95 98 Oxygen Delivery Method Room Air Room Air Room Air 08/27/23 15:28 Temperature 98.7 F Pulse Rate 85 Respiratory Rate 18 Blood Pressure 143/64 H Pulse Oximetry 99 Oxygen Delivery Method Room Air BMI result Body Mass Index 37.7 Const General: cooperative, no acute distress, alert and awake Nutritional Appearance: well nourished Orientation/consciousness: patient oriented x3 Limitations: no limitations HENMT Head: Yes normal to inspection and Yes atraumatic Ears: hearing grossly normal bilaterally and external ears normal General nose exam: Normal external nose present, no nasal discharge noted and no epistaxis Face and sinus: Yes normal facial exam, No abrasion and No laceration Mouth: Normal oral and palatal mucosa present, no drooling and no muffled voice Eyes General: appearance normal, both eyes and all related structures Periorbital: periorbital findings normal Eyelids: Yes eyelids normal Conjunctivae: conjunctivae normal Pupils: Equal, round and reactive pupils present EOM: EOMs intact bilaterally Neck Neck: Yes normal visual inspection, Yes full ROM and Yes no lymphadenopathy Chest Chest palpation & inspection: normal inspection of the chest Resp Effort & Inspection: normal respiratory effort and able to speak in complete sentences GI Inspection: Yes normal to inspection Palpation (GI): Soft to palpation, not firm, nontender, no guarding and not rigid Neuro General: patient oriented x3 and moves all extremities Cranial nerves: Yes Equal, round and reactive pupils present Cognition (Neuro): normal cognition Motor exam (neuro): 5/5 motor strength present throughout Sensory Exam: Normal double simultaneous stimulation for sensation Coordination: [id number] test normal Extrem General: Yes normal to inspection, Yes full ROM and Yes capillary refill normal Psych Appearance: grossly normal Mental Status: mental status grossly normal Affect: normal affect Attitude: cooperative Thought process: Normal thought process present Thought content: Normal thought content present Insight: Good insight present (Psych) Medications Administered Discontinued Medications Generic Name Dose Route Start Last Admin Trade Name Freq PRN Reason Stop Dose Admin Al Hydroxide/Mg Hydroxide 15 ml 08/27/23 11:10 08/27/23 11:51 Magnesium Hydrox/Alum Hydrox 30 Ml Oral.Susp PO 08/27/23 11:11 15 ml ONCE ONE Administration Diatrizoate Meglum/Diatrizoate Sod 30 ml 08/27/23 15:46 08/27/23 15:47 Diatrizoate Meglumine, Sodium 30 Ml Solution PO 08/27/23 15:47 30 ml ONCE ONE Administration Sodium Chloride 1,000 mls @ 999 mls/hr 08/27/23 11:15 08/27/23 13:43 Ns IV 08/27/23 12:15 Infused .Q1H1M MADELEINE Infusion Metoclopramide HCl 10 mg 08/27/23 12:31 08/27/23 12:40 Metoclopramide Hcl 10 Mg/2 Ml Vial IVPUSH 08/27/23 12:32 10 mg ONCE ONE Administration Morphine Sulfate 4 mg 08/27/23 12:17 08/27/23 12:26 Morphine Sulfate 4 Mg/Ml Cartridge IVPUSH 08/27/23 12:18 4 mg ONCE ONE Administration Protocol Morphine Sulfate 4 mg 08/27/23 16:49 08/27/23 17:14 Morphine Sulfate 4 Mg/Ml Cartridge IVPUSH 08/27/23 16:50 4 mg ONCE ONE Administration Protocol Ondansetron HCl 4 mg 08/27/23 11:10 08/27/23 11:51 Ondansetron Hcl 4 Mg/2 Ml Vial IVPUSH 08/27/23 11:11 4 mg ONCE ONE Administration Pantoprazole Sodium 40 mg 08/27/23 11:10 08/27/23 11:51 Pantoprazole Sodium 40 Mg/10 Ml Vial IVPUSH 08/27/23 11:11 40 mg ONCE ONE Administration Medical Decision Making Medical Decision Making MDM Narrative: Patient is a 53 year old assigned female at with a history of abdominal surgeries, recent hip replacement, migraines, and fibromyalgia presenting to the emergency department today with nausea, vomiting, and abdominal pain. Patient's physical exam was as noted in the physical exam portion of this note. Patient's blood work was unremarkable. Patient's urine showed no acute process. Patient's CT abdomen/pelvis with PO contrast showed a small bowel obstruction as well as known kidney adhesions. I called and spoke with the general surgery team who recommended admission to the hospital service. I spoke to the hospitalist team who agreed to admission. I explained my physical exam findings as well as all test results to the patient. I answered all questions asked by the patient. Patient verbalized agreement and understanding with this treatment plan and admission. Differential Diagnosis Differential Diagnoses: The differential diagnosis associated with the presentation includes SBO Nausea Vomiting Abdominal pain UTI Admission/Observation Consideration of admission/observation: Escalation of care including admission/observation considered Patient would have been admitted to the hospital had her work up had any findings where hospital admission was appropriate and her clinical presentation warranted hospital admission. Consult Healthcare Provider Management of the patient was discussed with: Hospitalist (agreed to admission.) and Ferris Wheel Operator (spoke to the general surgeon team as noted in the MDM Rationale portion of this note.) Lab Data [facility] Lab Attestation statement: I reviewed the patient's lab results. My interpretation of these results are in the MDM Rationale portion of this note. 08/27/23 11:21 08/27/23 11:21 Labs: Lab Results 08/27/23 08/27/23 Range/Units 11:21 15:33 WBC 12.9 H (4.8-10.8) X10*3/uL RBC 4.06 L (4.20-5.50) X10*6/uL Hgb 10.6 L (12.0-16.0) g/dl Hct 34.8 L (37.0-47.0) % MCV 85.7 (80.0-98.0) fL MCH 26.1 L (27.0-33.0) pg MCHC 30.5 L (31.0-35.0) g/dl RDW 15.2 (11.0-16.0) % Plt Count 480 H D (160-400) X10*3/uL MPV 10.7 (9.4-12.3) fL Immature Gran % (Auto) 0.5 H (0.0-0.4) % Neut % (Auto) 91.5 H (45-73) % Lymph % (Auto) 5.3 L (20-40) % [place] % (Auto) 2.2 (2-11) % Eos % (Auto) 0.2 (0-4) % Baso % (Auto) 0.3 (0-2) % Lymph # (Auto) 0.7 L (1.2-4.9) X10*3/uL [place] # (Auto) 0.3 (0.1-1.2) X10*3/uL Eos # (Auto) 0.0 (0.0-0.4) X10*3/uL Baso # (Auto) 0.0 (0.0-0.2) X10*3/uL Abs Immat Gran (auto) 0.07 H (0.00-0.03) X10*3/uL Absolute Neuts (auto) 11.8 H (2.0-8.3) x10*3/uL Absolute Nucleated RBC 0.000 (0.0-0.012) X10*3/uL Nucleated RBC % (auto) 0.0 (0.0-0.2) /100WBC Smear Tech's Comments VERIFIED Sodium 143 (135-145) mmol/L Potassium 4.6 (3.3-5.1) mmol/L Chloride 108 (96-108) mmol/L Carbon Dioxide 22 (22-29) mmol/L Anion Gap 18 (12-20) BUN 8 L (9-16) mg/dL Creatinine 0.78 (0.5-1.4) mg/dL Estim Creat Clear Calc 83.0 Estimated GFR > 60 Random Glucose 124 H (60-115) mg/dL Calcium 10.2 D (8.4-10.2) mg/dL Magnesium 2.0 (1.6-2.6) mg/dL Total Bilirubin 0.3 (0.0-1.0) mg/dL AST 35 H (5-31) U/L ALT 66 H (0-31) U/L Alkaline Phosphatase 96 (39-117) U/L Troponin I High Sens < 2.7 (<3.5-17.0) ng/L Total Protein 7.7 (6.5-8.0) g/dL Albumin 3.9 (3.5-5.0) g/dL Urine Color Yellow Urine Appearance Clear Urine pH 8.0 (5.0-9.0) Ur Specific [place] 1.010 (1.005-1.025) Urine Protein Negative (Neg-Trace) mg/dL Urine Glucose (UA) Negative (Negative) mg/dL Urine Ketones Negative (Negative) mg/dL Urine Blood Negative (Negative) Urine Nitrite Negative (Negative) Ur Leukocyte Esterase Negative (Negative) COVID-19 (HEATHER) Negative (Negative) COVID-19 Clin Com See Note Influenza Type A (SYDNEY) Negative (Negative) Influenza Type B (SYDNEY) Negative (Negative) Influenza A & B Note See Note Independent Interpretation I performed an independent interpretation of an: CT Scan Interpretation: My interpretation is in agreement with the radiologist's impression of this imaging study. EXAMINATION: CT ABDOMEN AND PELVIS WITHOUT CONTRAST CLINICAL INFORMATION: Abdominal pain, concern for is medial COMPARISON: None available. CT abdomen pelvis 08/03/2023 TECHNIQUE: Multidetector volumetric imaging was performed from the superior aspect of the liver through the pubic symphysis. Sagittal and coronal reformatted images were obtained on the technologist's workstation. This CT examination was performed using dose optimization techniques as appropriate, variously including the following: *Automated exposure control *Adjustment of mA and/or kV according to patient size (this includes techniques or standardized protocols for targeted exams where dose is matched to indication/reason for exam; i.e. extremities or head) *Use of iterative reconstruction technique DLP: 758 mGy-cm FINDINGS: LUNG BASES: The visualized lung bases are unremarkable. LIVER, GALLBLADDER, AND BILIARY TREE: The liver is normal in size, shape, and attenuation. No focal hepatic lesion or biliary ductal dilatation is present. The gallbladder has been surgically removed. PANCREAS: Unremarkable. SPLEEN: Unremarkable. ADRENAL GLANDS: Unremarkable. KIDNEYS AND URETERS: The kidneys are normal in size, shape, and attenuation. There there are several radiopaque calculi mid and lower pole right kidney largest fibroid calculi lower pole right kidney is noted. No radiopaque calculi seen left kidney. I would is moderate hydroureteronephrosis with dilated ureter extending to of left upper pelvis where multiple surgical sutures are seen, likely cause of adhesions and obstruction. No radiopaque calculi seen in the distal left ureter. BLADDER: There is mild bladder wall thickening but no radiopaque calculi seen. There is a soft tissue calcification in proximal ureter similar to previous study. GASTROINTESTINAL TRACT: There are prominent fluid-filled small bowel loops similar previous study. The colon is decompressed with scattered stool in the right colon. There are surgical sutures and scarring in the lower pelvis likely cause or partial small bowel obstruction from lesions. ABDOMINAL WALL: No significant hernia is appreciated. LYMPH NODES: Normal. VASCULAR: There is atherosclerotic calcification of abdominal aorta without aneurysmal dilatation. PELVIC VISCERA: There is no free fluid or free air. OSSEOUS STRUCTURES: There is new total right hip prosthesis with immediate postsurgical changes along the right lateral hip. There are streak artifacts secondary to prosthesis restricting evaluation. CT/CT abdomen pelvis wo IV con IMPRESSION: Moderate left hydronephrosis similar to previous study with likely cause of obstruction in the left pelvis secondary to postsurgical karrie and adhesions. Similarly there is dilated small bowel loops with air-fluid levels extending to the right lower pelvis where there are multiple surgical karrie, likely obstruction secondary to adhesions. Nonobstructive radiopaque right renal calculi. Fleischner guidelines were followed. Dictated By: Omar Padilla MD Signed By: Electronically signed by Omar Padilla MD 08/27/23 1631 Vent. Rate: 085 BPM Atrial Rate: 085 BPM P-R Int: 122 ms QRS Dur: 080 ms QT Int: 384 ms P-R-T Axes: 035 001 008 degrees QTc Int: 456 ms Normal sinus rhythm Normal ECG When compared with ECG of 03-AUG-2023 10:07, Premature ventricular complexes are no longer Present lectronically Signed By:Colin Colon Dictated By: Colin Colon MD Signed By: Electronically signed by Colin Colon MD 08/27/23 6798 Radiology Impression Discussion of test interpretation with radiology: I have reviewed the radiologist's reading. Independent Historian Clinical information obtained from an independent historian. History obtained from or confirmed by: EMS (EMS provided additional history and confirmed the history provided by the patient.) Critical Care Time Critical Care Time Critical Care Time: Yes Total Critical Care Time: 55 Attestation: I spent 55 minutes of Critical Care Time with this patient. This does not include time spent on separately reported billable procedures. Discharge Plan Discharge Clinical Impression: Abdominal pain, SBO (small bowel obstruction), Nausea & vomiting Patient Disposition: Admitted As Inpatient
[2023-08-27 10:57] VITALS: BP 148/73; PULSE 87; RESP 18; TEMP 36.7; O2SAT 95; BMI 37.7
[2023-08-27 11:00] VITALS: RESP 20; O2SAT 95
--- NOTE | 2023-08-27 11:03 | ECG_ITS ---
Test Reason : EPIGASTRIC PAIN Blood Pressure : / mmHG Vent. Rate : 085 BPM Atrial Rate : 085 BPM P-R Int : 122 ms QRS Dur : 080 ms QT Int : 384 ms P-R-T Axes : 035 001 008 degrees QTc Int : 456 ms Normal sinus rhythm Normal ECG When compared with ECG of 03-AUG-2023 10:07, Premature ventricular complexes are no longer Present Referred By: Generic ED Physician Electronically Signed By:Colin Colon
--- NOTE | 2023-08-27 11:14 | PC.NURSE ---
Pt is a&ox4 coming in with epigastric pain, n/v since this am. Reports having right hip replacement 08/15/23. recieved 4mg zofran po upoin ems arrival. Pt uses cane to get around, MAEI. skin pwd.
[2023-08-27] MEDS: ondansetron HCL 4 MG/2 ML VIAL IVPUSH ×2 (11:51→21:23)
[2023-08-27] MEDS: Magnesium Hydrox/Alum Hydrox 30 ML ORAL.SUSP 15 ML PO (11:51)
[2023-08-27] MEDS: Pantoprazole Sodium 40 MG/10 ML VIAL IVPUSH (11:51)
[2023-08-27] MEDS: 0.9 % Sodium Chloride 1,000 ML 999 ML IV (11:52)
[2023-08-27 12:00] VITALS: BP 155/83; PULSE 94; RESP 16; O2SAT 98
[2023-08-27 12:16] LABS: Alanine Aminotransferase 66 U/L (0-31); Albumin Level 3.9 g/dL (3.5-5.0); Alkaline Phosphatase 96 U/L (39-117); Anion Gap 18 (12-20); Aspartate Amino Transferase 35 U/L (5-31); Bilirubin Total 0.3 mg/dL (0.0-1.0); Blood Urea Nitrogen 8 mg/dL (9-16); Calcium 10.2 mg/dL (8.4-10.2); Carbon Dioxide 22 mmol/L (22-29); Chloride 108 mmol/L (96-108); Estimated Glomerular Filt Rate > 60; Glucose Random 124 mg/dL (60-115); Potassium 4.6 mmol/L (3.3-5.1); Sodium 143 mmol/L (135-145); Total Protein 7.7 g/dL (6.5-8.0)
[2023-08-27 12:23] LABS: Troponin-I High Sensitivity < 2.7 ng/L (<3.5-17.0)
[2023-08-27] MEDS: Morphine Sulfate 4 MG/ML CARTRIDGE IVPUSH ×2 (12:26→17:14)
[2023-08-27 12:36] LABS: COVID-19 Test Negative (Negative); IDNOW Serial# 08D9AD1C; IDNOW Serial# 152EDE1D; Influenza A Negative (Negative); Influenza B2 Negative (Negative)
[2023-08-27] MEDS: Metoclopramide HCl 10 MG/2 ML VIAL IVPUSH (12:40)
[2023-08-27 13:12] LABS: Basophils Percent Auto 0.3 % (0-2); Eosinophils Percent Auto 0.2 % (0-4); Hematocrit 34.8 % (37.0-47.0); Hemoglobin 10.6 g/dl (12.0-16.0); Imm Gran Abs Auto 0.07 X10*3/uL (0.00-0.03); Imm Gran Pct Auto 0.5 % (0.0-0.4); Lymphocytes Absolute Auto 0.7 X10*3/uL (1.2-4.9); Lymphocytes Percent Auto 5.3 % (20-40); MANUAL DIFF FLAG SCAN; Mean Corpuscular HGB Conc 30.5 g/dl (31.0-35.0); Mean Corpuscular Hemoglobin 26.1 pg (27.0-33.0); Mean Corpuscular Volume 85.7 fL (80.0-98.0); Mean Platelet Volume 10.7 fL (9.4-12.3); Monocytes Absolute Auto 0.3 X10*3/uL (0.1-1.2); Monocytes Percent Auto 2.2 % (2-11); Neutrophils Absolute Auto 11.8 x10*3/uL (2.0-8.3); Neutrophils Percent Auto 91.5 % (45-73); Platelet Count 480 X10*3/uL (160-400); Red Blood Count 4.06 X10*6/uL (4.20-5.50); Red Cell Distribution Width 15.2 % (11.0-16.0); SCAN SMEAR FLAG 1; White Blood Count 12.9 X10*3/uL (4.8-10.8)
[2023-08-27 13:35] LABS: SLIDE REVIEW VERIFIED
[2023-08-27 15:28] VITALS: BP 143/64; PULSE 85; RESP 18; TEMP 37.1; O2SAT 99
--- NOTE | 2023-08-27 15:41 | PC.NURSE ---
Pt in ct for scan
[2023-08-27] MEDS: Diatrizoate Meglumine, Sodium 30 ML SOLUTION PO (15:47)
[2023-08-27 15:58] LABS: Appearance Urine Clear; Color Urine Yellow; Glucose Urine UA Negative (Negative); Leukocyte Esterase Urine Negative (Negative); Nitrite Urine Negative (Negative); Urine Blood Negative (Negative); Urine Ketones Negative (Negative); Urine Protein Negative (Neg-Trace)
--- NOTE | 2023-08-27 18:43 | PHA.MEDREC ---
Pharmacy Consult ? Medication Reconciliation Pharmacy has completed the medication reconciliation. Confirmed medications with patient and claim history. Patient states she is no longer taking Pantoprazole, Buproprion, Metoprolol, and Duloxetine Mayuri Camarillo CPhT
[2023-08-27 19:46] VITALS: BP 129/68; PULSE 91; RESP 16; TEMP 36.9; O2SAT 96
--- NOTE | 2023-08-27 19:50 | PC.NURSE ---
Patient is resting in stretcher bed, VSS. Patient reports epigastric pain with nausea, last episode of vomiting around 2:00 pm. Patient also reports pain in right hip 5/10 s/p recent right THR, surgical incision is covered with non-removable dressing and will removed by a surgeon at f/u appointment on 08/30/2023. Patient ambulates with a cane. Patient made aware of NPO diet, verbalized understanding, call hager within patient's reach. .
--- NOTE | 2023-08-27 19:57 | PHA.MEDREC ---
Pharmacy Consult ? Medication Reconciliation Pharmacy has completed the medication reconciliation. Patient takes her inhalers PRN. States that her asthma is under control now Mayuri Camarillo CPhT
--- NOTE | 2023-08-27 21:08 | P.HPHOSP_ITS ---
History of Present Illness Date of Service: 08/27/23 Attending physician on admission: Keshia Thapa Chief Complaint: Abdominal pain Yanci Tate is a 53 years old woman with past medical history significant for bipolar disorder, hyperlipidemia, nephrolithiasis, irritable bowel syndrome, bowel obstruction a recent left hip surgery (Aug [address] 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 Pain is nonradiating and she described it as a colicky. He has been taking oxycodone as needed for hip pain. She denied any cardiopulmonary or genitourinary symptoms. Denies headache, dizziness, fever, chills or palpitation. She denies alcohol abuse, illicit drug use or tobacco smoking. Past surgical history is remarkable for hysterectomy (cervical CA) + bilateral oophorectomy and cholecystectomy. She does have history of constipation as well as chronic diarrhea. She also takes gabapentin, tramadol and baclofen for pain. In the ED today, she was found to have normal vital signs. Blood workup is remarkable for leukocytosis of 12.9 and hemoglobin stable. Creatinine is normal. AST and ALT are slightly elevated. Total bilirubin and alk-phos are normal. Urinalysis is normal. Viral testing for COVID-19 and influenza is negative. Abdomen and pelvis CT scan without contrast showed moderate left hydronephrosis (similar to prior) with likely cause of obstruction in the left pelvis secondary to post surgical karrie and adhesions. It also showed similarly dilated small bowel loops with air-fluid levels extending to the right lower pelvis where there are multiple surgical karrie (slightly obstruction secondary to adhesions). ED tx: Protonix 40 mg IV, Maalox 15 mL p.o., Zofran 4 mg IV, morphine 4 mg IV, Reglan 10 mg IV, a total of 8 mg of morphine. According to ED provider case was discussed with Dr. Sam, surgeon on-call, recommending admission to Medicine. Review of Systems 2 Review of Systems: All 12 systems were reviewed and normal except as noted in HPI. [facility] Medical History Hydronephrosis, bilateral Osteopenia Renal calculi Sacroiliac joint pain Encounter for medication monitoring Palpitations Gastritis Fibromyalgia Hx of small bowel obstruction Abdominal pain Obesity (BMI 30-39.9) Bipolar depression Insomnia HLA-B27 spondyloarthropathy Osteoarthritis of multiple joints Vitamin D deficiency Migraine Allergic rhinitis Mild intermittent asthma without complication Pure hypercholesterolemia Primary osteoarthritis of right hip Lumbar spondylosis Family History Father Kidney problem Diabetes Mother Kidney malignancy Diabetes Brother Asthma Diabetes Surgical History S/P cystourethroscopy with dilation of urethral stricture (~07/21/20) History of esophagogastroduodenoscopy (EGD) Hx of unilateral oophorectomy Hx of colonoscopy Hx of cholecystectomy Hx of cystoscopy History of extraction of renal calculus History of carpal tunnel surgery History of hand surgery History of hysterectomy Social History Household Members: Significant Other Housing: House Are you a primary careers adviser to a significant other at home: No Do you presently have visiting nurse or other home services: Yes Alcohol intake: never Comment: counts correct Patient Tobacco Use Status: Never used Tobacco Smoked in Last 30 Days: No e-Cigarette/Vaping Use: Never Used Second Hand Smoke Exposure: No Use of substances other than those prescribed or required for medical reasons: No Advance Directives: Yes Advance Directives on File: Yes Advance Directives Date on File: 08/08/23 Patient : No service: No Current occupational status: disabled Cognitive needs: No Hearing needs: No Vision needs: Yes Meds Allergies Allergy/AdvReac Type Severity Reaction Status Date / Time Penicillins [PENICILLINS] Allergy Severe HIVES Verified 08/15/23 07:49 Iodinated Contrast Media Allergy Intermediate HIVES Verified 08/15/23 07:49 [IV CONTRAST] peanut [PEANUTS] Allergy Intermediate HIVES Verified 08/15/23 07:49 shellfish derived Allergy Intermediate HIVES Verified 08/15/23 07:49 [SHELLFISH DERIVED] almond Allergy Mild Hives Verified 08/15/23 07:49 cat dander Allergy Mild cough/hives Verified 08/15/23 07:49 dog dander Allergy Mild cough/hives Verified 08/15/23 07:49 pollen extracts Allergy Mild runny Verified 08/15/23 07:49 nose, itchy eyes Active Medications: Current Medications Heparin Sodium (Porcine) (Heparin Sodium,Porcine 5,000 Unit/Ml Vial) 5,000 unit SUBCUT Q8H [facility] Hydromorphone HCl (Hydromorphone Hcl 0.5 Mg/0.5 Ml Syringe) 0.5 mg IVPUSH Q4H PRN; Protocol PRN Reason: Pain, Severe (Pain Scale 7-10) Sodium Chloride (Ns) 1,000 mls @ 100 mls/hr IVCONT .Q10H [facility] Ketorolac Tromethamine (Ketorolac Tromethamine 15 Mg/Ml Vial) 15 mg IVPUSH Q8H PRN PRN Reason: Pain, Moderate(Pain Scale 4-6) Ondansetron HCl (Ondansetron Hcl 4 Mg/2 Ml Vial) 4 mg IVPUSH Q8H PRN PRN Reason: Nausea and Vomiting Sodium Chloride (0.9 % Sodium Chloride Flush 3 Ml Syringe) 3 ml IVFLUSH QSHIFT [facility] Home Medications Medication Instructions Recorded Confirmed Last Taken Type cetirizine 10 mg tablet (Zyrtec) 10 mg PO DAILY PRN allergies 07/06/20 08/27/23 08/26/23 History clonazepam 1 mg tablet (Klonopin) 1 mg PO BID 07/06/20 08/27/23 08/26/23 History montelukast 10 mg tablet 10 mg PO BEDTIME 07/06/20 08/27/23 08/26/23 History (Singulair) naratriptan 2.5 mg tablet 2.5 mg PO DAILY MRX1 PRN Headache 07/06/20 08/27/23 08/26/23 History cyclosporine 0.05 % eye drops in a 1 drp ophthalmic (eye) Q12H 01/06/21 08/27/23 08/26/23 History dropperette (Restasis) dorzolamide 22.3 mg-timolol 6.8 1 drp ophthalmic (eye) BID 05/08/22 08/27/23 08/26/23 History mg/mL eye drops epinephrine 0.3 mg/0.3 mL 0.3 mg IM ONCE PRN anaphylaxis 09/18/22 08/27/23 08/26/23 History injection, auto-injector bimatoprost 0.01 % eye drops 1 drp ophthalmic (eye) BEDTIME 03/26/23 08/27/23 08/26/23 History (Lumigan) omalizumab 150 mg subcutaneous 150 mg subcut Q3W 05/02/23 08/27/23 08/26/23 History solution (Xolair) bisacodyl 5 mg tablet,delayed 10 mg PO BEDTIME PRN Constipation 08/03/23 08/27/23 08/26/23 History release (Dulcolax (bisacodyl)) fluticasone propionate 50 1 spray intranasal DAILY PRN 08/03/23 08/27/23 08/26/23 History mcg/actuation nasal Congestion spray,suspension gabapentin 800 mg tablet 800 mg PO BID 08/03/23 08/27/23 08/26/23 History atorvastatin 20 mg tablet 20 mg PO BID 08/27/23 08/27/23 08/26/23 History docusate sodium 100 mg capsule 100 mg PO BID PRN Constipation 08/27/23 08/27/23 08/26/23 History famotidine 20 mg tablet 20 mg PO BEDTIME PRN Heartburn 08/27/23 08/27/23 08/26/23 History fluticasone propionate 220 1 puff inhalation BID PRN breathing 08/27/23 08/27/23 08/26/23 History mcg/actuation HFA aerosol inhaler (Flovent HFA) mometasone 100 mcg/actuation HFA 1 puff inhalation BID PRN breathing 08/27/23 08/27/23 Unknown History aerosol inhaler (Asmanex HFA) ondansetron 4 mg disintegrating 4 mg PO Q8H PRN Nausea 08/27/23 08/27/23 08/26/23 History tablet Physical Exam 2 Vital Signs and Narrative: Vital Signs: Last Vital Signs Temp 98.4 F 08/27/23 19:46 Pulse 91 08/27/23 19:46 Resp 16 08/27/23 19:46 BP 129/68 08/27/23 19:46 Pulse Ox 96 08/27/23 19:46 O2 Del Method Room Air 08/27/23 19:46 BMI result Body Mass Index 37.7 Constitutional - Awake and Alert, pleasant, cooperative. Looks uncomfortable due to pain. HEENT - atraumatic. Normocephalic. Cardiovascular - RRR, normal. Respiratory - Normal lung expansion, Normal respiratory effort, No respiratory distress, CTA bilaterally Gastrointestinal - soft. No distention. Decreased bowel sounds. Tenderness to palpation over the epigastrium and left lower quadrant. Extremities - no calf tenderness bilaterally, no swelling. Left hip tenderness w/ clean surgical bandages. Musculoskeletal - Normal inspection, normal ROM Skin - Warm/Dry Neurological - Alert & oriented x3. Psychological - Appropriate affect. Results Labs 08/27/23 11:21 08/27/23 11:21 Labs: Laboratory Results - last 24 hr 08/27/23 08/27/23 11:21 15:33 MCV 85.7 MCH 26.1 L MCHC 30.5 L RDW 15.2 Plt Count 480 H D MPV 10.7 Immature Gran % (Auto) 0.5 H Neut % (Auto) 91.5 H Lymph % (Auto) 5.3 L Ross % (Auto) 2.2 Eos % (Auto) 0.2 Baso % (Auto) 0.3 Lymph # (Auto) 0.7 L Ross # (Auto) 0.3 Eos # (Auto) 0.0 Baso # (Auto) 0.0 Abs Immat Gran (auto) 0.07 H Absolute Neuts (auto) 11.8 H Absolute Nucleated RBC 0.000 Nucleated RBC % (auto) 0.0 Smear Tech's Comments VERIFIED Anion Gap 18 Estim Creat Clear Calc 83.0 Estimated GFR > 60 Random Glucose 124 H Calcium 10.2 D Magnesium 2.0 Total Bilirubin 0.3 AST 35 H ALT 66 H Alkaline Phosphatase 96 Total Protein 7.7 Albumin 3.9 Urine Color Yellow Urine Appearance Clear Urine pH 8.0 Ur Specific [place] 1.010 Urine Protein Negative Urine Glucose (UA) Negative Urine Ketones Negative Urine Blood Negative Urine Nitrite Negative Ur Leukocyte Esterase Negative COVID-19 (HEATHER) Negative COVID-19 Clin Com See Note Influenza Type A (SYDNEY) Negative Influenza Type B (SYDNEY) Negative Influenza A & B Note See Note Imaging Radiologist's Impressions: Impressions Abdomen/Pelvis CT 08/27/23 15:48 IMPRESSION: Moderate left hydronephrosis similar to previous study with likely cause of obstruction in the left pelvis secondary to postsurgical karrie and adhesions. Similarly there is dilated small bowel loops with air-fluid levels extending to the right lower pelvis where there are multiple surgical karrie, likely obstruction secondary to adhesions. Nonobstructive radiopaque right renal calculi. Fleischner guidelines were followed. Assessment and Plan (1) Nausea & vomiting: Status: Acute (2) Abdominal pain: Status: Acute Plan Yanci Tate is a 53 years old woman admitted with: * Abdominal pain associated with nausea and vomiting. Bowel obstruction? Ileus? Irritable bowel syndrome? Admit to hospitalist service. Keep NPO. Antiemetic therapy as needed. Pain control with Dilaudid and/or Toradol IV as needed. Start IV fluids. Surgery consult. * Leukocytosis likely secondary to pain and vomiting. Continue IV fluids. Continue to monitor WBC count for now. * Elevation of AST and ALT, mild. Possible secondary to medications. Continue to monitor. * Moderate left hydronephrosis, chronic and nephrolithiasis. * Anemia, chronic. Continue to monitor hemoglobin. * Recent left hip surgery. Patient has been ambulating well at home. Has an appointment for suture removal this . * Hyperlipidemia. Continue statin when able. * Chronic pain/fibromyalgia. Continue baclofen, gabapentin and tremor when able. * Anxiety. Continue clonazepam when able. * Bipolar disorder. Continue duloxetine when able. * History of asthma. Asymptomatic. Continue montelukast when able. Continue Asmanex (or alternative). DVT prophylaxis: Heparin subcut. Code status: Full. Patient will require hospitalization for at least 2 midnights for abdominal pain evaluation and treatment with antiemetic, pain killers, IV fluids and surgery evaluation. Quality Stroke Does the patient have a stroke diagnosis?: No VTE Prior VTE?: No VTE Risk Level:: Medical - moderate - high VTE Device Contraindication: N/A - Device Ordered VTE Drug Contraindication: N/A - Med Ordered
[2023-08-27] MEDS: 0.9 % Sodium Chloride 1,000 ML 100 ML IVCONT (21:21)
[2023-08-27] MEDS: Ketorolac Tromethamine 15 MG/ML VIAL IVPUSH (21:23)
--- NOTE | 2023-08-27 21:27 | PC.NURSE ---
Addendum entered by Yazmin Perez 08/27/23 21:29: and Toradol 15 mg IV push, 1 L NS infusion started at 100 ml/hr. Original Note: Patient assisted to the restroom, patient ambulates using a cane. Patient reports worsening epigastric pain and nausera after using a restroom. Patient medicated with Zofran 4 mg IV
[2023-08-28 00:15] VITALS: BP 134/66; PULSE 86; RESP 20; TEMP 36.9; O2SAT 96
[2023-08-28 03:05] VITALS: BP 155/71; PULSE 82; RESP 16; TEMP 36.4; O2SAT 95
[2023-08-28] MEDS: HYDROmorphone HCl 0.5 MG/0.5 ML SYRINGE IVPUSH (03:14)
[2023-08-28 05:41] LABS: MANUAL DIFF FLAG NO
[2023-08-28 05:48] LABS: Basophils Absolute Auto 0.1 X10*3/uL (0.0-0.2); Basophils Percent Auto 0.4 % (0-2); Eosinophils Absolute Auto 0.1 X10*3/uL (0.0-0.4); Eosinophils Percent Auto 1.1 % (0-4); Hematocrit 31.7 % (37.0-47.0); Hemoglobin 9.5 g/dl (12.0-16.0); Imm Gran Abs Auto 0.06 X10*3/uL (0.00-0.03); Imm Gran Pct Auto 0.5 % (0.0-0.4); Lymphocytes Absolute Auto 1.4 X10*3/uL (1.2-4.9); Lymphocytes Percent Auto 10.6 % (20-40); Mean Corpuscular Volume 86.8 fL (80.0-98.0); Mean Platelet Volume 11.2 fL (9.4-12.3); Monocytes Absolute Auto 0.7 X10*3/uL (0.1-1.2); Monocytes Percent Auto 5.2 % (2-11); Neutrophils Absolute Auto 10.6 x10*3/uL (2.0-8.3); Neutrophils Percent Auto 82.2 % (45-73); Platelet Count 356 X10*3/uL (160-400); Red Blood Count 3.65 X10*6/uL (4.20-5.50); Red Cell Distribution Width 15.1 % (11.0-16.0); White Blood Count 12.9 X10*3/uL (4.8-10.8)
[2023-08-28] MEDS: 0.9 % Sodium Chloride 1,000 ML 100 ML IVCONT (05:56)
[2023-08-28 06:09] LABS: Alanine Aminotransferase 51 U/L (0-31); Albumin Level 3.7 g/dL (3.5-5.0); Alkaline Phosphatase 89 U/L (39-117); Anion Gap 14 (12-20); Aspartate Amino Transferase 25 U/L (5-31); Bilirubin Total 0.4 mg/dL (0.0-1.0); Blood Urea Nitrogen 8 mg/dL (9-16); Calcium 9.2 mg/dL (8.4-10.2); Carbon Dioxide 21 mmol/L (22-29); Chloride 112 mmol/L (96-108); Creatinine Clr Calc Pharmacy 84.1; Estimated Glomerular Filt Rate > 60; Glucose Random 99 mg/dL (60-115); Lipase 20 U/L (8-78); Potassium 3.9 mmol/L (3.3-5.1); Sodium 143 mmol/L (135-145); Total Protein 7.1 g/dL (6.5-8.0)
[2023-08-28 07:11] VITALS: BP 131/62; PULSE 70; RESP 18; TEMP 36.4; O2SAT 98
[2023-08-28] MEDS: Fluticasone Propionate 100 MCG BLST.W.DEV 1 PUFF INHALE (08:11)
[2023-08-28 08:13] VITALS: PULSE 76; RESP 16; O2SAT 98
[2023-08-28] MEDS: Heparin Sodium,Porcine 5,000 UNIT/ML VIAL 5000 UNIT SUBCUT (09:23)
[2023-08-28] MEDS: 0.9 % Sodium Chloride Flush 3 ML SYRINGE IVFLUSH (09:25)
--- NOTE | 2023-08-28 11:41 | P.CONGS_ITS ---
History of Present Illness Consult details Consult date: 08/28/23 <Bernadette Merino PA-C - Last Filed: 08/28/23 13:53> Narrative: Yanci Tate is a 53 years old woman with PMH significant for bipolar disorder, hyperlipidemia, nephrolithiasis, irritable bowel syndrome who presented to the ED with acute onset of vomiting and upper abdominal pain. She reports she began vomiting and then developed severe upper abdominal pain and diarrhea. Pain is crampy in nature. She had multiple episodes of vomiting and therfore came to the ED for evaluation. She had a R THR on 08/15/23 and has been taking oxycodone as needed for hip pain. She reports She denies fever, chills, sick contacts. Past surgical history is remarkable for hysterectomy (cervical CA) + bilateral oophorectomy and cholecystectomy. She presented to the ED for evaluation. Work up included CBC, BMP and LFTs which was significant for a leukocytosis of 12.9, AST/ALT slightly elevated. Abdomen and pelvis CT scan showed mildly dilated small bowel loops with air-fluid levels extending to the right lower pelvis. She was admitted to the medical service. This morning she denies any abdominal pain, nausea or vomiting. She is passing flatus. <Bernadette Merino PA-C - Last Filed: 08/28/23 13:53> [facility] Past Medical History Medical History: Medical History Hydronephrosis, bilateral Osteopenia Renal calculi Sacroiliac joint pain Encounter for medication monitoring Palpitations Gastritis Fibromyalgia Hx of small bowel obstruction Abdominal pain Obesity (BMI 30-39.9) Bipolar depression Insomnia HLA-B27 spondyloarthropathy Osteoarthritis of multiple joints Vitamin D deficiency Migraine Allergic rhinitis Mild intermittent asthma without complication Pure hypercholesterolemia Primary osteoarthritis of right hip Lumbar spondylosis <Bernadette Merino PA-C - Last Filed: 08/28/23 13:53> Family History Family History: Family History Father Kidney problem Diabetes Mother Kidney malignancy Diabetes Brother Asthma Diabetes <Bernadette Merino PA-C - Last Filed: 08/28/23 13:53> Surgical History Surgical History: Surgical History S/P cystourethroscopy with dilation of urethral stricture (~07/21/20) History of esophagogastroduodenoscopy (EGD) Hx of unilateral oophorectomy Hx of colonoscopy Hx of cholecystectomy Hx of cystoscopy History of extraction of renal calculus History of carpal tunnel surgery History of hand surgery History of hysterectomy <Bernadette Merino PA-C - Last Filed: 08/28/23 13:53> Social History Social History: Social History Household Members: Spouse Housing: House Are you a primary medicare coordinator to a significant other at home: No Do you presently have visiting nurse or other home services: Yes Unable to assess alcohol history related to: Unknown Alcohol intake: never Comment: counts correct Patient Tobacco Use Status: Never used Tobacco e-Cigarette/Vaping Use: Never Used Second Hand Smoke Exposure: No Advance Directives Date on File: 08/08/23 service: No Current occupational status: disabled Cognitive needs: No Hearing needs: No Vision needs: Yes <Bernadette Merino PA-C - Last Filed: 08/28/23 13:53> Meds Allergies/Adverse reactions: Allergies Allergy/AdvReac Type Severity Reaction Status Date / Time Penicillins [PENICILLINS] Allergy Severe HIVES Verified 08/15/23 07:49 Iodinated Contrast Media Allergy Intermediate HIVES Verified 08/15/23 07:49 [IV CONTRAST] peanut [PEANUTS] Allergy Intermediate HIVES Verified 08/15/23 07:49 shellfish derived Allergy Intermediate HIVES Verified 08/15/23 07:49 [SHELLFISH DERIVED] almond Allergy Mild Hives Verified 08/15/23 07:49 cat dander Allergy Mild cough/hives Verified 08/15/23 07:49 dog dander Allergy Mild cough/hives Verified 08/15/23 07:49 pollen extracts Allergy Mild runny Verified 08/15/23 07:49 nose, itchy eyes <Bernadette Merino PA-C - Last Filed: 08/28/23 13:53> Active Medications: Current Medications Dorzolamide/Timolol (Dorzolamide/Timolo 2.23%/0.68% 10 Ml Drbtl) 1 drop EYE- BOTH BID MADELEINE Fluticasone Propionate (Fluticasone Propionate 100 Mcg Blst.W.Dev) 1 puff INHALE RBID [facility] Last Admin: 08/28/23 08:11 Dose: 1 puff Heparin Sodium (Porcine) (Heparin Sodium,Porcine 5,000 Unit/Ml Vial) 5,000 unit SUBCUT Q8H [facility] Last Admin: 08/28/23 09:23 Dose: 5,000 unit Hydromorphone HCl (Hydromorphone Hcl 0.5 Mg/0.5 Ml Syringe) 0.5 mg IVPUSH Q4H PRN; Protocol PRN Reason: Pain, Severe (Pain Scale 7-10) Last Admin: 08/28/23 03:14 Dose: 0.5 mg Sodium Chloride (Ns) 1,000 mls @ 100 mls/hr IVCONT .Q10H [facility] Last Admin: 08/28/23 05:56 Dose: 100 mls/hr Ketorolac Tromethamine (Ketorolac Tromethamine 15 Mg/Ml Vial) 15 mg IVPUSH Q8H PRN PRN Reason: Pain, Moderate(Pain Scale 4-6) Last Admin: 08/27/23 21:23 Dose: 15 mg Ondansetron HCl (Ondansetron Hcl 4 Mg/2 Ml Vial) 4 mg IVPUSH Q8H PRN PRN Reason: Nausea and Vomiting Last Admin: 08/27/23 21:23 Dose: 4 mg Sodium Chloride (0.9 % Sodium Chloride Flush 3 Ml Syringe) 3 ml IVFLUSH QSHIFT [facility] Last Admin: 08/28/23 09:25 Dose: 3 ml <Bernadette Merino PA-C - Last Filed: 08/28/23 13:53> Home medications: Home Medications Medication Instructions Recorded Confirmed Last Taken Type cetirizine 10 mg tablet (Zyrtec) 10 mg PO DAILY PRN allergies 07/06/20 08/27/23 08/26/23 History clonazepam 1 mg tablet (Klonopin) 1 mg PO BID 07/06/20 08/27/23 08/26/23 History montelukast 10 mg tablet 10 mg PO BEDTIME 07/06/20 08/27/23 08/26/23 History (Singulair) naratriptan 2.5 mg tablet 2.5 mg PO DAILY MRX1 PRN Headache 07/06/20 08/27/23 08/26/23 History cyclosporine 0.05 % eye drops in a 1 drp ophthalmic (eye) Q12H 01/06/21 08/27/23 08/26/23 History dropperette (Restasis) dorzolamide 22.3 mg-timolol 6.8 1 drp ophthalmic (eye) BID 05/08/22 08/27/23 08/26/23 History mg/mL eye drops epinephrine 0.3 mg/0.3 mL 0.3 mg IM ONCE PRN anaphylaxis 09/18/22 08/27/23 08/26/23 History injection, auto-injector bimatoprost 0.01 % eye drops 1 drp ophthalmic (eye) BEDTIME 03/26/23 08/27/23 08/26/23 History (Katieigan) omalizumab 150 mg subcutaneous 150 mg subcut Q3W 05/02/23 08/27/23 08/26/23 History solution (Xolair) bisacodyl 5 mg tablet,delayed 10 mg PO BEDTIME PRN Constipation 08/03/23 08/27/23 08/26/23 History release (Dulcolax (bisacodyl)) fluticasone propionate 50 1 spray intranasal DAILY PRN 08/03/23 08/27/23 08/26/23 History mcg/actuation nasal Congestion spray,suspension gabapentin 800 mg tablet 800 mg PO BID 08/03/23 08/27/23 08/26/23 History atorvastatin 20 mg tablet 20 mg PO BID 08/27/23 08/27/23 08/26/23 History docusate sodium 100 mg capsule 100 mg PO BID PRN Constipation 08/27/23 08/27/23 08/26/23 History famotidine 20 mg tablet 20 mg PO BEDTIME PRN Heartburn 08/27/23 08/27/23 08/26/23 History fluticasone propionate 220 1 puff inhalation BID PRN breathing 08/27/23 08/27/23 08/26/23 History mcg/actuation HFA aerosol inhaler (Flovent HFA) mometasone 100 mcg/actuation HFA 1 puff inhalation BID PRN breathing 08/27/23 08/27/23 Unknown History aerosol inhaler (Asmanex HFA) ondansetron 4 mg disintegrating 4 mg PO Q8H PRN Nausea 08/27/23 08/27/23 08/26/23 History tablet <Bernadette Merino PA-C - Last Filed: 08/28/23 13:53> Physical Exam 2 Vital Signs: Vital Signs: Last Vital Signs Temp 97.5 F 08/28/23 07:11 Pulse 76 08/28/23 08:13 Resp 16 08/28/23 08:13 BP 131/62 08/28/23 07:11 Pulse Ox 98 08/28/23 07:11 O2 Del Method Room Air 08/28/23 07:11 BMI result Body Mass Index 37.7 <ALF Alberto Last Filed: 08/28/23 13:53> Results Labs Result diagrams: 08/28/23 05:25 08/28/23 05:25 <ALF Alberto Last Filed: 08/28/23 13:53> Labs: Abnormal lab results 08/27/23 08/28/23 Range/Units 11:21 05:25 WBC 12.9 H 12.9 H (4.8-10.8) X10*3/uL RBC 4.06 L 3.65 L (4.20-5.50) X10*6/uL Hgb 10.6 L 9.5 L (12.0-16.0) g/dl Hct 34.8 L 31.7 L (37.0-47.0) % MCH 26.1 L 26.0 L (27.0-33.0) pg MCHC 30.5 L 30.0 L (31.0-35.0) g/dl Plt Count 480 H D (160-400) X10*3/uL Immature Gran % (Auto) 0.5 H 0.5 H (0.0-0.4) % Neut % (Auto) 91.5 H 82.2 H (45-73) % Lymph % (Auto) 5.3 L 10.6 L (20-40) % Lymph # (Auto) 0.7 L (1.2-4.9) X10*3/uL Abs Immat Gran (auto) 0.07 H 0.06 H (0.00-0.03) X10*3/uL Absolute Neuts (auto) 11.8 H 10.6 H (2.0-8.3) x10*3/uL Chloride 112 H (96-108) mmol/L Carbon Dioxide 21 L (22-29) mmol/L BUN 8 L 8 L (9-16) mg/dL Random Glucose 124 H (60-115) mg/dL AST 35 H (5-31) U/L ALT 66 H 51 H (0-31) U/L Short CBC 08/27/23 08/28/23 Range/Units 11:21 05:25 WBC 12.9 H 12.9 H (4.8-10.8) X10*3/uL Hgb 10.6 L 9.5 L (12.0-16.0) g/dl Hct 34.8 L 31.7 L (37.0-47.0) % Plt Count 480 H D 356 D (160-400) X10*3/uL BMP 08/27/23 08/28/23 11:21 05:25 Sodium 143 143 Potassium 4.6 3.9 Chloride 108 112 H Carbon Dioxide 22 21 L BUN 8 L 8 L Creatinine 0.78 0.77 Calcium 10.2 D 9.2 D Liver Function 08/27/23 08/28/23 Range/Units 11:21 05:25 Total Bilirubin 0.3 0.4 (0.0-1.0) mg/dL AST 35 H 25 (5-31) U/L ALT 66 H 51 H (0-31) U/L Alkaline Phosphatase 96 89 (39-117) U/L Albumin 3.9 3.7 (3.5-5.0) g/dL Urine 08/27/23 Range/Units 15:33 Urine Color Yellow Urine Appearance Clear Urine pH 8.0 (5.0-9.0) Ur Specific [place] 1.010 (1.005-1.025) Urine Protein Negative (Neg-Trace) mg/dL Urine Glucose (UA) Negative (Negative) mg/dL All other labs normal. <Bernadette Merino PA-C - Last Filed: 08/28/23 13:53> Imaging Abdomen CT scan report/results: report reviewed and image reviewed <Bernadette Merino PA-C - Last Filed: 08/28/23 13:53> Assessment and Plan (1) Nausea & vomiting: Status: Acute <Bernadette Merino PA-C - Last Filed: 08/28/23 13:53> 53 year old female with PMH significant for bipolar disorder, hyperlipidemia, nephrolithiasis, irritable bowel syndrome with acute onset of upper abdominal pain with initial CT scan showing dilated SB loops concerning for obstruction. Her symptoms have resolved this morning with f/u AXR showing contrast in her colon. Currently not obstructed, no acute surgical intervention warranted. Advance diet as tolerated. <Bernadette Merino PA-C - Last Filed: 08/28/23 13:53> Procedures Date of Service Date of Service: 08/28/23 <Bernadette Merino PA-C - Last Filed: 08/28/23 13:53> 08/28/23 <Alonso Sam MD - Last Filed: 08/28/23 13:16>
[2023-08-28 11:50] VITALS: BP 157/71; PULSE 88; RESP 18; TEMP 36.1
--- NOTE | 2023-08-28 11:54 | MHC.CM.PN ---
pt lives with s/o has cyber security architect servies and physical therapy from [facility] pt has own ride home
[2023-08-28] MEDS: Ketorolac Tromethamine 15 MG/ML VIAL IVPUSH (14:50)
[2023-08-28 15:22] VITALS: BP 163/79; PULSE 82; RESP 18; TEMP 36.7; O2SAT 97
--- NOTE | 2023-08-28 15:43 | P.DS_ITS ---
DS: Providers Provider Date of Service: 08/28/23 Date of admission: 08/27/23 20:18 Date of discharge: 08/28/23 Primary care physician: Christ Goodwin MD Consults: 08/27/23 16:45 Consult to General Surgery Stat Consulting Provider: [facility] [place] General Surgeons Reason for consultation: SBO 08/27/23 20:25 Consult to General Surgery Routine Consulting Provider: [facility] [place] General Surgeons Reason for consultation: SBO Has provider been notified: Yes DS: Diagnosis Discharge Diagnosis (1) Nausea & vomiting: Status: Acute DS: Summary Hospital Course Hospital Course: 53 years old woman with past medical history significant for bipolar disorder, hyperlipidemia, nephrolithiasis, irritable bowel syndrome, bowel obstruction a recent left hip surgery (Aug [address] Zepeda) presents to the emergency department complaining of upper abdominal pain associated with nausea, vomiting and diarrhea that started today plastic surgery technician. Pain is nonradiating and she described it as a colicky. He has been taking oxycodone as needed for hip pain. She denied any cardiopulmonary or genitourinary symptoms. Denies headache, dizziness, fever, chills or palpitation. She denies alcohol abuse, illicit drug use or tobacco smoking. Past surgical history is remarkable for hysterectomy (cervical CA) + bilateral oophorectomy and cholecystectomy. She does have history of constipation as well as chronic diarrhea. She also takes gabapentin, tramadol and baclofen for pain. In the ED today, she was found to have normal vital signs. Blood workup is remarkable for leukocytosis of 12.9 and hemoglobin stable. Creatinine is normal. AST and ALT are slightly elevated. Total bilirubin and alk-phos are normal. Urinalysis is normal. Viral testing for COVID-19 and influenza is negative. Abdomen and pelvis CT scan without contrast showed moderate left hydronephrosis (similar to prior) with likely cause of obstruction in the left pelvis secondary to post surgical karrie and adhesions. It also showed similarly dilated small bowel loops with air-fluid levels extending to the right lower pelvis where there are multiple surgical karrie (slightly obstruction secondary to adhesions). ED tx: Protonix 40 mg IV, Maalox 15 mL p.o., Zofran 4 mg IV, morphine 4 mg IV, Reglan 10 mg IV, a total of 8 mg of morphine. Hospital Course Admitted to general medical floor overnight. Seen in consultation by surgery who ordered a KUB in the early a.m. the this failed to demonstrate any abnormal bowel gas pattern/obstruction. Patient's diet was advanced and she tolerated a regular diet and was anxious to go home. At this point in time she is medically acceptable for discharge Time Attestation Discharge coordination time: Greater than 30 minutes Quality: Safe Use of Opioids Does Pt have an Active Cancer Diagnosis on the Problem List?: No Quality: Stroke Does the patient have a stroke diagnosis?: No Physical Exam Vital Signs: Vital Signs: Last Vital Signs Temp 98.1 F 08/28/23 15:22 Pulse 82 08/28/23 15:22 Resp 18 08/28/23 15:22 BP 163/79 H 08/28/23 15:22 Pulse Ox 97 08/28/23 15:22 O2 Del Method Room Air 08/28/23 15:22 BMI result Body Mass Index 37.7 Const: Other: No acute issues Resp: Other: Clear to auscultation bilaterally no rales rhonchi or wheezes Cardio: Other: No S4; positive S1-S2; no S3 murmurs rubs or gallops GI: Other: Soft nontender nondistended normoactive bowel sounds Extrem: Other: No edema bilaterally DS: Data Data Completed and Pending Completed studies during hospitalization [Text1]: Procedures Replacement of Right Hip Joint with Synthetic Substitute, Uncemented, Open Approach (08/15/23) Labs on day of discharge: Laboratory Results - last 24 hr 08/27/23 08/28/23 15:33 05:25 WBC 12.9 H RBC 3.65 L Hgb 9.5 L Hct 31.7 L MCV 86.8 MCH 26.0 L MCHC 30.0 L RDW 15.1 Plt Count 356 D MPV 11.2 Immature Gran % (Auto) 0.5 H Neut % (Auto) 82.2 H Lymph % (Auto) 10.6 L [place] % (Auto) 5.2 Eos % (Auto) 1.1 Baso % (Auto) 0.4 Lymph # (Auto) 1.4 [place] # (Auto) 0.7 Eos # (Auto) 0.1 Baso # (Auto) 0.1 Abs Immat Gran (auto) 0.06 H Absolute Neuts (auto) 10.6 H Absolute Nucleated RBC 0.000 Nucleated RBC % (auto) 0.0 Sodium 143 Potassium 3.9 Chloride 112 H Carbon Dioxide 21 L Anion Gap 14 BUN 8 L Creatinine 0.77 Estim Creat Clear Calc 84.1 Estimated GFR > 60 Random Glucose 99 Calcium 9.2 D Total Bilirubin 0.4 AST 25 ALT 51 H Alkaline Phosphatase 89 Total Protein 7.1 Albumin 3.7 Lipase 20 Urine Color Yellow Urine Appearance Clear Urine pH 8.0 Ur Specific [place] 1.010 Urine Protein Negative Urine Glucose (UA) Negative Urine Ketones Negative Urine Blood Negative Urine Nitrite Negative Ur Leukocyte Esterase Negative Discharge Plan Discharge Anticipated Discharge Date/Time: 08/28/23 15:40 Patient Disposition: Home, Self-Care Discharge Diagnosis: PSBO Referrals: [facility] [Outside] - 3-5 Days (Resume physical therapy services with [facility]. ) Christ Goodwin MD [Primary Care Provider] - 1 Week Discharge Medications: Continued zolpidem [Ambien] 10 mg tablet 10 mg PO BEDTIME PRN (Reason: Insomnia) 30 Days Qty: 30 0RF albuterol sulfate 90 mcg/actuation HFA aerosol inhaler 2 puff inhalation Q4-6H PRN (Reason: Shortness Of Breath Or Wheezing) Qty: 8.5 3RF tramadol 50 mg tablet 50 mg PO BID Qty: 60 3RF (DME) lew Misc See Rx Instructions .MEDSUPPLY Qty: 1 0RF Rx Instructions: Folding Front wheeled walker baclofen 20 mg tablet 20 mg PO BID 30 Days Qty: 60 8RF Rx Instructions: take 1/2 of the pill if there are side effects with full dose. gabapentin 800 mg tablet 800 mg PO BID bisacodyl [Dulcolax (bisacodyl)] 5 mg tablet,delayed release (DR/EC) 10 mg PO BEDTIME PRN (Reason: Constipation) fluticasone propionate 50 mcg/actuation spray,suspension 1 spray intranasal DAILY PRN (Reason: Congestion) celecoxib 200 mg Capsule 200 mg PO BID 30 Days Qty: 60 0RF acetaminophen 325 mg Tablet 650 mg PO Q6H PRN (Reason: Pain, Mild (Pain Scale 1-3)) 30 Days Qty: 240 0RF enoxaparin 40 mg/0.4 mL Syringe 40 mg subcut Q24H 42 Days Qty: 16.8 0RF atorvastatin 20 mg tablet 20 mg PO BID famotidine 20 mg tablet 20 mg PO BEDTIME PRN (Reason: Heartburn) docusate sodium 100 mg capsule 100 mg PO BID PRN (Reason: Constipation) ondansetron 4 mg tablet,disintegrating 4 mg PO Q8H PRN (Reason: Nausea) Asmanex HFA 100 mcg/actuation HFA aerosol inhaler 1 puff inhalation BID PRN (Reason: breathing) fluticasone propionate [Flovent HFA] 220 mcg/actuation HFA aerosol inhaler 1 puff inhalation BID PRN (Reason: breathing) (DME) SHOWER CHAIR See Rx Instructions .Route .MEDSUPPLY Qty: 1 0RF Rx Instructions: As directed naratriptan 2.5 mg tablet 2.5 mg PO DAILY MRX1 PRN (Reason: Headache) Rx Instructions: take 1 tab at onset of headache; if no relief may repeat 1 tab after at least 4 hrs; max = 2 tabs/24 hrs PO clonazepam [Klonopin] 1 mg tablet 1 mg PO BID montelukast [Singulair] 10 mg tablet 10 mg PO BEDTIME cetirizine [Zyrtec] 10 mg tablet 10 mg PO DAILY PRN (Reason: allergies) Restasis 0.05 % dropperette 1 drp ophthalmic (eye) Q12H Xolair 150 mg recon soln 150 mg subcut Q3W dorzolamide-timolol 22.3-6.8 mg/mL drops 1 drp ophthalmic (eye) BID epinephrine 0.3 mg/0.3 mL auto-injector 0.3 mg IM ONCE PRN (Reason: anaphylaxis) Lumigan 0.01 % drops 1 drp ophthalmic (eye) BEDTIME Discharge Orders: Discharge Order (Routine); Ordered 08/28/23 Ordered By: Helder Galeana Diet: Advance to usual diet Activity on Discharge: As tolerated Stand Alone Forms: Patient Portal Discharge page Care Plan Goals: Resume all previous meds as taken prior to hospital Health Concerns: Follow-up with PCP next available Plan of Treatment: Advance your diet as tolerated. Assessment: See discharge summary
--- NOTE | 2023-08-28 16:05 | MHC.CM.PN ---
Patient is medically cleared for dc home. Plan to resume NET FRONT END DEVELOPER services and home PT with [facility]. NET FRONT END DEVELOPER/Significant other is at bedside to transport. [facility] made aware of dc.
== END 2023-08-28 16:47 | disposition home or self-care (01) | DRG 252 ==
LOC: HO.ED 16:49 → HO.EDOVER 20:28 → HO.S3 08-28 00:42
PROVIDERS: Physician Assistant Medical; Admitting Provider Internal Medicine; Emergency Provider Emergency Medicine; PCP Internal Medicine; Visit Provider Hospitalist
DX: K91.31 Postprocedural partial intestinal obstruction (principal); E78.5 Hyperlipidemia, unspecified; N13.2 Hydronephrosis with renal and ureteral calculous obstruction; M79.7 Fibromyalgia; G89.29 Other chronic pain; F31.9 Bipolar disorder, unspecified; F41.9 Anxiety disorder, unspecified; Z20.822 Contact with and (suspected) exposure to COVID-19; Z79.891 Long term (current) use of opiate analgesic; Z91.041 Radiographic dye allergy status; Z79.899 Other long term (current) drug therapy
CPT/HCPCS: 36415; 74018; 74176; 80053; 81003; 83690; 83735; 84484; 85025; 87502; 87635; 93005; 94640; 99285; C9113; J1170; J1644; J1885; J2270; J2405; J2765

== ENCOUNTER → 2023-08-27 11:03 | Outpatient (BNV) | payer OTHER, SELFPAY | PROVIDERS: Emergency Provider Emergency Medicine; PCP Internal Medicine; Visit Provider Internal Medicine Cardiovascular Disease | DX: I49.3 Ventricular premature depolarization (principal) | CPT/HCPCS: 93010 ==

== ENCOUNTER → 2023-08-27 20:18 | Outpatient (BNV) | payer OTHER, SELFPAY | PROVIDERS: Admitting Provider Internal Medicine; Emergency Provider Emergency Medicine; PCP Internal Medicine; Visit Provider Physician Assistant Surgical | DX: R11.2 Nausea with vomiting, unspecified (principal) | CPT/HCPCS: 99222 ==

== ENCOUNTER → 2023-08-27 20:18 | Outpatient (BNV) | payer OTHER, SELFPAY | PROVIDERS: Admitting Provider Internal Medicine; Emergency Provider Emergency Medicine; PCP Internal Medicine; Visit Provider Internal Medicine | DX: R11.2 Nausea with vomiting, unspecified (principal); R10.13 Epigastric pain; R10.32 Left lower quadrant pain | CPT/HCPCS: 99223; 99239 ==

== ENCOUNTER 2023-08-30 11:53 | Outpatient (AMB) | payer OTHER, SELFPAY ==
--- NOTE | 2023-08-30 12:20 | A.OFFVIS_ITS ---
Intake Intake Visit Reasons: PO-RT CHRISTEL 08/15/23 NE Intake Note: Yanci rubin 53 year old female presents today for a post operative right CHRISTEL on 08/15/23 NE. Patient reports she is doing well, states she has no concerns today. Allergies Penicillins [PENICILLINS] Allergy (Severe, Verified 08/30/23 12:30) HIVES Iodinated Contrast Media [IV CONTRAST] Allergy (Intermediate, Verified 08/30/23 12:30) HIVES peanut [PEANUTS] Allergy (Intermediate, Verified 08/30/23 12:30) HIVES shellfish derived [SHELLFISH DERIVED] Allergy (Intermediate, Verified 08/30/23 12:30) HIVES almond Allergy (Mild, Verified 08/30/23 12:30) Hives cat dander Allergy (Mild, Verified 08/30/23 12:30) cough/hives dog dander Allergy (Mild, Verified 08/30/23 12:30) cough/hives pollen extracts Allergy (Mild, Verified 08/30/23 12:30) runny nose, itchy eyes HPI PO-RT CHRISTEL 08/15/23 NE HPI Details 53-year-old female who returns to the [facility] today for post-op right CHRISTEL, 08/15/[address] Zepeda. She states she has no pain and is doing well overall. She has no other concerns today. [facility] Medical History Hydronephrosis, bilateral Osteopenia Renal calculi Sacroiliac joint pain Encounter for medication monitoring Palpitations Gastritis Fibromyalgia Hx of small bowel obstruction Abdominal pain Obesity (BMI 30-39.9) Bipolar depression Insomnia HLA-B27 spondyloarthropathy Osteoarthritis of multiple joints Vitamin D deficiency Migraine Allergic rhinitis Mild intermittent asthma without complication Pure hypercholesterolemia Primary osteoarthritis of right hip Lumbar spondylosis Surgical History S/P cystourethroscopy with dilation of urethral stricture (~07/21/20) History of esophagogastroduodenoscopy (EGD) Hx of unilateral oophorectomy Hx of colonoscopy Hx of cholecystectomy Hx of cystoscopy History of extraction of renal calculus History of carpal tunnel surgery History of hand surgery History of hysterectomy Family History Father Kidney problem Diabetes Mother Kidney malignancy Diabetes Brother Asthma Diabetes Social History Household Members: Spouse Housing: House Are you a primary healthcare liaison to a significant other at home: No Do you presently have visiting nurse or other home services: Yes Unable to assess alcohol history related to: Unknown Alcohol intake: never Comment: counts correct Patient Tobacco Use Status: Never used Tobacco e-Cigarette/Vaping Use: Never Used Second Hand Smoke Exposure: No Advance Directives Date on File: 08/08/23 service: No Current occupational status: disabled Cognitive needs: No Hearing needs: No Vision needs: Yes Review of Systems Const All systems reviewed & are unremarkable except as noted in HPI and below Physical Exam Extrem Other: Right hip: Incision clean, dry and intact. No erythema or drainage. No pain with ROM or hip flexion. NVI. Assessment & Plan Assessment & Plan (1) Status post total hip replacement, right: Code(s): Z96.641 - Presence of right artificial hip joint Plan [place] removed, steri strips applied. She will begin to transition to Outpatient PT to continue working on Gait training, ROM and quad strength. No driving for another 4 weeks. She will require ppx abx for dental procedures. She will f/u in 4 weeks, sooner if needed. Orders: Orders PT Evaluation and Treatment Today Z96.641 - Presence of right artificial hip joint Patient Instructions: Scribed for Aki Beck PA-C, by Yassine Delgado registered medical assistant, on 08/30/2023 at 12:30 PM EST. I, Aki Beck PA-C, have personally reviewed and agree with the information entered by the scribe. Coding Level of Care Code Global (88328) Diagnoses Status post total hip replacement, right Z96.641
== END 2023-08-30 12:58 | disposition home or self-care (01) ==
PROVIDERS: PCP Internal Medicine; Visit Provider Physician Assistant
DX: Z96.641 Presence of right artificial hip joint (principal)
CPT/HCPCS: 99024

== ENCOUNTER → 2023-08-30 11:53 | Outpatient (BNVA) | payer OTHER, SELFPAY | PROVIDERS: PCP Internal Medicine; Visit Provider Physician Assistant | DX: Z47.1 Aftercare following joint replacement surgery (principal); Z96.641 Presence of right artificial hip joint | CPT/HCPCS: 99212 ==

== ENCOUNTER 2023-09-11 16:07 | Outpatient (AMB) | payer OTHER, SELFPAY ==
--- NOTE | 2023-09-11 16:09 | MHC.OFFVIS ---
Intake Vital Signs 09/11/23 16:17 Height 5 ft Weight 186 lb BMI 36.3 BP 139/65 Blood Pressure Location Lt brachial Position Sitting Pulse 81 Intake Visit Reasons: 4 month follow up GERD Intake Note: Patient follow up for GERD. Patient cc: GERD on and off, and diarrhea. Patient went to the [facility] 2 weeks ago with abdominal pain and vomit. Risk Assessor Required: No Accompanied by: Self / Same As Patient Allergies Penicillins [PENICILLINS] Allergy (Severe, Verified 09/11/23 16:09) HIVES Iodinated Contrast Media [IV CONTRAST] Allergy (Intermediate, Verified 09/11/23 16:09) HIVES peanut [PEANUTS] Allergy (Intermediate, Verified 09/11/23 16:09) HIVES shellfish derived [SHELLFISH DERIVED] Allergy (Intermediate, Verified 09/11/23 16:09) HIVES almond Allergy (Mild, Verified 09/11/23 16:09) Hives cat dander Allergy (Mild, Verified 09/11/23 16:09) cough/hives dog dander Allergy (Mild, Verified 09/11/23 16:09) cough/hives pollen extracts Allergy (Mild, Verified 09/11/23 16:09) runny nose, itchy eyes HPI 4 month follow up GERD HPI Details LAST VISIT: IBS (irritable bowel syndrome) GERD (gastroesophageal reflux disease) Postprandial abdominal bloating Plan Continue current treatment with pantoprazole and famotidine. Discussed with patient avoiding dietary triggers. Patient is seen by [facility]. Will wait to schedule patient for gastric emptying study. Continue low FODMAP diet. Continue taking Dulcolax tablets. Patient was encouraged to increase fluid intake and activity to promote better bowel motility. I will see patient in 4 months, sooner on as needed basis. Patient is agreeable to this plan and verbalizes understanding of instructions. She was given the opportunity to ask questions and all questions answered. ? TODAY'S VISIT Patient is here today for follow-up. Patient reports that she has been doing well in the last few weeks. However she does admit that after her hip surgery that was in August patient was constipated. Patient reports that she had abdominal pain then and was unable to move her bowels for several days. Patient was in the emergency room 2 weeks ago for abdominal pain, constipation, nausea and vomiting. Patient was taking oxycodone for pain and despite taking stool softeners oxycodone she was very constipated. Patient was not moving much right after surgery. Currently patient is moving her bowels, taking Colace and Dulcolax. Patient reports occasional dyspepsia, without dysphagia or odynophagia. Patient reports that she has been going for physical therapy. Her right hip is healing well. Follows up with her kidney specialist as well. Will have an appointment this month. Patient denies any melena, hematochezia, unintentional weight loss or ribbon like stools. [facility] Medical History Hydronephrosis, bilateral Osteopenia Renal calculi Sacroiliac joint pain Encounter for medication monitoring Palpitations Gastritis Fibromyalgia Hx of small bowel obstruction Abdominal pain Obesity (BMI 30-39.9) Bipolar depression Insomnia HLA-B27 spondyloarthropathy Osteoarthritis of multiple joints Vitamin D deficiency Migraine Allergic rhinitis Mild intermittent asthma without complication Pure hypercholesterolemia Primary osteoarthritis of right hip Lumbar spondylosis Surgical History S/P cystourethroscopy with dilation of urethral stricture (~07/21/20) History of esophagogastroduodenoscopy (EGD) Hx of unilateral oophorectomy Hx of colonoscopy Hx of cholecystectomy Hx of cystoscopy History of extraction of renal calculus History of carpal tunnel surgery History of hand surgery History of hysterectomy Family History Father Kidney problem Diabetes Mother Kidney malignancy Diabetes Brother Asthma Diabetes Social History Household Members: Spouse Housing: House Are you a primary child caregiver private home to a significant other at home: No Do you presently have visiting nurse or other home services: Yes Unable to assess alcohol history related to: Unknown Alcohol intake: never Comment: counts correct Patient Tobacco Use Status: Never used Tobacco e-Cigarette/Vaping Use: Never Used Second Hand Smoke Exposure: No Advance Directives Date on File: 08/08/23 service: No Current occupational status: disabled Cognitive needs: No Hearing needs: No Vision needs: Yes Review of Systems Const Denies weight gain and Denies weight loss ENT Reports no additional complaints, Denies dysphagia and Denies odynophagia Card Reports no additional complaints Resp Reports no additional complaints GI Denies abdominal pain, Denies belching, Denies melena, Denies bloating, Denies change in bowel habits, Denies dysphagia, Denies excessive flatus, Denies dyspepsia, Reports heartburn, Denies diarrhea, Denies loose stools, Denies nausea, Denies odynophagia and Denies vomiting Reports no additional complaints Musc Reports no additional complaints Neuro Reports no additional complaints Psych Reports no additional complaints Endo Reports no additional complaints Physical Exam Vital Signs: Last Vital Signs Pulse 81 09/11/23 16:17 BP 139/65 09/11/23 16:17 BMI result Body Mass Index 36.3 Const General: healthy appearing, no acute distress and well developed Nutritional Appearance: obese Orientation/consciousness: patient oriented x3 Resp Effort & Inspection: normal respiratory effort, able to speak in complete sentences, no tracheal deviation and symmetric chest movement Auscultation: clear to auscultation bilaterally Cardio Rate: regular rate GI Inspection: Yes normal to inspection, No distended and Yes obesity Palpation (GI): Soft to palpation, not firm, nontender and No hepatosplenomegaly present Auscultation: normal bowel sounds General: Yes no CVA tenderness Back/Spine/Pelvis Back: no CVA tenderness Skin General skin exam: elasticity normal, turgor normal and dry skin Neuro General: patient oriented x3 Psych Appearance: grossly normal Mental Status: mental status grossly normal Affect: normal affect Assessment & Plan Assessment & Plan (1) IBS (irritable bowel syndrome): Code(s): K58.9 - Irritable bowel syndrome without diarrhea Qualifiers: Irritable bowel syndrome type: without diarrhea Qualified Code(s): K58.9 - Irritable bowel syndrome without diarrhea (2) GERD (gastroesophageal reflux disease): Code(s): K21.9 - Gastro-esophageal reflux disease without esophagitis Qualifiers: Esophagitis presence: esophagitis presence not specified Qualified Code(s): K21.9 - Gastro-esophageal reflux disease without esophagitis (3) Postprandial abdominal bloating: Code(s): R14.0 - Abdominal distension (gaseous) Plan Patient can start taking pantoprazole in the morning. She may take famotidine at bedtime on as needed basis. Discussed with patient avoiding dietary triggers and late night snacking. Continue taking bisacodyl tablets and Colace. Patient was encouraged to increase fluid intake and activity to promote better bowel motility. Patient is moving more now that she is attending physical therapy. Patient will report any GI concerning symptoms. I will see her in 4 months, sooner on as needed basis. Patient is agreeable to this plan and verbalizes understanding of instructions. She was given the opportunity to ask questions and all questions answered. Thank you for allowing me to participate in her care Medications: New pantoprazole take one tablet half an hour before breakfast 40 mg PO DAILY 90 tabs 2RF K21.9 - Gastro-esophageal reflux disease without esophagitis Changed From famotidine 20 mg PO BEDTIME PRN Heartburn To famotidine 20 mg PO BEDTIME 90 tabs 2RF Heartburn From bisacodyl (Dulcolax (bisacodyl)) 10 mg PO BEDTIME PRN Constipation To bisacodyl (Dulcolax (bisacodyl)) 10 mg (2 x 5 mg) PO BEDTIME 180 tabs 2RF Constipation Coding Level of Care Code Est Pt Level 3 (59623) Diagnoses Irritable bowel syndrome without diarrhea K58.9 Irritable bowel syndrome type: without diarrhea Gastroesophageal reflux disease, unspecified whether esophagitis present K21.9 Esophagitis presence: esophagitis presence not specified Postprandial abdominal bloating R14.0 Time Spent (min) 30 Comment 20 minutes spent with patient and additional 10 minutes spent reviewing her records
[2023-09-11 16:17] VITALS: BP 139/65; PULSE 81; BMI 36.3
== END 2023-09-11 17:36 ==
PROVIDERS: PCP Internal Medicine; Visit Provider Nurse Practitioner Family
DX: K58.9 Irritable bowel syndrome, unspecified (principal); K21.9 Gastro-esophageal reflux disease without esophagitis; R14.0 Abdominal distension (gaseous)
CPT/HCPCS: 99213

== ENCOUNTER → 2023-09-11 16:07 | Outpatient (BNVA) | payer OTHER, SELFPAY | PROVIDERS: PCP Internal Medicine; Visit Provider Nurse Practitioner Family | DX: K58.9 Irritable bowel syndrome, unspecified (principal); K21.9 Gastro-esophageal reflux disease without esophagitis; R14.0 Abdominal distension (gaseous) | CPT/HCPCS: 99212 ==

== ENCOUNTER 2023-09-24 10:17 | Outpatient (REF) | payer OTHER, SELFPAY ==
[2023-09-24 10:47] LABS: Basophils Absolute Auto 0.1 X10*3/uL (0.0-0.2); Basophils Percent Auto 0.7 % (0-2); Eosinophils Absolute Auto 0.3 X10*3/uL (0.0-0.4); Eosinophils Percent Auto 3.7 % (0-4); Hemoglobin 10.9 g/dl (12.0-16.0); Imm Gran Abs Auto 0.04 X10*3/uL (0.00-0.03); Imm Gran Pct Auto 0.5 % (0.0-0.4); Lymphocytes Percent Auto 13.7 % (20-40); MANUAL DIFF FLAG SCAN; Mean Corpuscular HGB Conc 30.3 g/dl (31.0-35.0); Mean Corpuscular Hemoglobin 25.8 pg (27.0-33.0); Mean Corpuscular Volume 85.1 fL (80.0-98.0); Monocytes Absolute Auto 0.4 X10*3/uL (0.1-1.2); Monocytes Percent Auto 5.3 % (2-11); Neutrophils Absolute Auto 5.8 x10*3/uL (2.0-8.3); Neutrophils Percent Auto 76.1 % (45-73); PLT CLUMP 1; Red Blood Count 4.23 X10*6/uL (4.20-5.50); Red Cell Distribution Width 14.6 % (11.0-16.0); SCAN SMEAR FLAG 1
[2023-09-24 10:48] LABS: White Blood Count 7.6 X10*3/uL (4.8-10.8)
[2023-09-24 11:14] LABS: Estimated Average Glucose 97 mg/dL
[2023-09-24 11:22] LABS: Mean Platelet Volume 11.1 fL (9.4-12.3); Platelet Count 329 X10*3/uL (160-400)
[2023-09-24 11:23] LABS: SLIDE REVIEW VERIFIED
[2023-09-24 11:36] LABS: Alanine Aminotransferase 31 U/L (0-31); Albumin Level 4.1 g/dL (3.5-5.0); Alkaline Phosphatase 90 U/L (39-117); Anion Gap 14 (12-20); Aspartate Amino Transferase 23 U/L (5-31); Bilirubin Total 0.4 mg/dL (0.0-1.0); Blood Urea Nitrogen 13 mg/dL (9-16); Calcium 9.6 mg/dL (8.4-10.2); Carbon Dioxide 25 mmol/L (22-29); Chloride 107 mmol/L (96-108); Cholesterol 245 mg/dL (<200); Estimated Glomerular Filt Rate > 60; Glucose Fasting 81 mg/dL (60-99); HDL Cholesterol 53 mg/dL (>40); LDL Cholesterol Calculated 153 mg/dL (<100); Potassium 3.9 mmol/L (3.3-5.1); Sodium 142 mmol/L (135-145); Total Protein 7.5 g/dL (6.5-8.0); Triglycerides 198 mg/dL (<150)
[2023-09-24 11:53] LABS: TSH reflex Free T4 2.33 uIU/mL (0.32-4.0); Vitamin D 25-OH Total 41.9 ng/mL (>30)
== END 2023-09-24 10:18 | disposition home or self-care (01) ==
LOC: HO.LAB 10:17
PROVIDERS: PCP Internal Medicine; Visit Provider Internal Medicine
DX: R73.01 Impaired fasting glucose (principal); R30.0 Dysuria; E55.9 Vitamin D deficiency, unspecified; E78.00 Pure hypercholesterolemia, unspecified; I10 Essential (primary) hypertension
CPT/HCPCS: 36415; 80053; 80061; 82306; 83036; 84443; 85025

== ENCOUNTER 2023-09-28 15:46 | Outpatient (AMB) | payer OTHER, SELFPAY ==
--- NOTE | 2023-09-28 15:52 | MHC.PC.OV ---
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 Accompanied by: Self / Same As Patient Allergies Penicillins [PENICILLINS] Allergy (Severe, Verified 09/28/23 16:20) HIVES Iodinated Contrast Media [IV CONTRAST] Allergy (Intermediate, Verified 09/28/23 16:20) HIVES peanut [PEANUTS] Allergy (Intermediate, Verified 09/28/23 16:20) HIVES shellfish derived [SHELLFISH DERIVED] Allergy (Intermediate, Verified 09/28/23 16:20) HIVES almond Allergy (Mild, Verified 09/28/23 16:20) Hives cat dander Allergy (Mild, Verified 09/28/23 16:20) cough/hives dog dander Allergy (Mild, Verified 09/28/23 16:20) cough/hives pollen extracts Allergy (Mild, Verified 09/28/23 16:20) runny nose, itchy eyes Medication List - Last Reconciled 09/28/23 by Christ Goodwin MD acetaminophen 650 mg (2 x 325 mg) PO Q6H PRN 30 days albuterol sulfate 90 mcg/actuation 2 puffs inhalation Q4-6H PRN atorvastatin 20 mg PO BID baclofen 20 mg PO BID 30 days bimatoprost 0.01% (Lumigan) 1 drp ophthalmic (eye) BEDTIME bisacodyl (Dulcolax (bisacodyl)) 10 mg (2 x 5 mg) PO BEDTIME celecoxib 200 mg PO BID 30 days cetirizine (Zyrtec) 10 mg PO DAILY PRN clonazepam (Klonopin) 1 mg PO BID cyclosporine 0.05% (Restasis) 1 drp ophthalmic (eye) Q12H docusate sodium 100 mg PO BID PRN dorzolamide-timolol 22.3-6.8 mg/mL 1 drp ophthalmic (eye) BID enoxaparin 40 mg (0.4 mL) subcut Q24H 42 days epinephrine 0.3 mg IM ONCE PRN famotidine 20 mg PO BEDTIME fluticasone propionate 50 mcg/actuation 1 spray intranasal DAILY PRN fluticasone propionate 220 mcg/actuation (Flovent HFA) 1 puff inhalation BID PRN gabapentin 800 mg PO BID mometasone 100 mcg/actuation (Asmanex HFA) 1 puff inhalation BID PRN montelukast (Singulair) 10 mg PO BEDTIME naratriptan 2.5 mg PO DAILY MRX1 PRN omalizumab (Xolair) 150 mg subcut Q3W ondansetron 4 mg PO Q8H PRN pantoprazole 40 mg PO DAILY [SHOWER CHAIR As directed] tramadol 50 mg PO BID walker Folding Front wheeled walker zolpidem (Ambien) 10 mg PO BEDTIME PRN 30 days Tobacco use date assessed: 09/28/23 Dental Screening Dental Screen Date: 09/28/23 Did you have a dental visit in the last 12 months?: Yes Did you have a dental problem in the last 6 months where you did not have access to dental care?: No Was dental information given to patient?: Patient has dentist HPI hyperlipidemia,migraine,lumbar spondylosis,asthma HPI Details Patient comes in today for her follow up visit States that she had a total right hip arthroplasty last month on 08/15/2023 - feels that she did well with her surgery She has been going to physical therapy for her right hip for a couple of weeks now and states that her rehab has been progressing well also She denies any headaches or dizziness - states that her headaches have been well-controlled lately Denies any chest pains, no increased SOB No nausea/vomiting, no abdominal pain No change in bowel habits noted States that she has not been taking her Atorvastatin for the past 1 month Had her follow up labs done a few days ago - to discuss her results She is also asking for a referral to [facility] for her migraine headaches - was seeing [facility] before but would like to switch over to [facility] as she would like to keep all of her doctor's visits and appointments locally as much as possible for convenience [facility] Medical History Hydronephrosis, bilateral Osteopenia Renal calculi Sacroiliac joint pain Encounter for medication monitoring Palpitations Gastritis Fibromyalgia Hx of small bowel obstruction Abdominal pain Obesity (BMI 30-39.9) Bipolar depression Insomnia HLA-B27 spondyloarthropathy Osteoarthritis of multiple joints Vitamin D deficiency Migraine Allergic rhinitis Mild intermittent asthma without complication Pure hypercholesterolemia Primary osteoarthritis of right hip Lumbar spondylosis Surgical History (Updated 09/30/23 @ 05:34 by Christ Goodwin MD) History of total hip arthroplasty (~08/15/23) S/P cystourethroscopy with dilation of urethral stricture (~07/21/20) History of esophagogastroduodenoscopy (EGD) Hx of unilateral oophorectomy Hx of colonoscopy Hx of cholecystectomy Hx of cystoscopy History of extraction of renal calculus History of carpal tunnel surgery History of hand surgery History of hysterectomy Family History Father Kidney problem Diabetes Mother Kidney malignancy Diabetes Brother Asthma Diabetes Social History Household Members: Spouse Housing: House Are you a primary hemodialysis patient care specialist to a significant other at home: No Do you presently have visiting nurse or other home services: Yes Unable to assess alcohol history related to: Unknown Alcohol intake: never Comment: counts correct Patient Tobacco Use Status: Never used Tobacco e-Cigarette/Vaping Use: Never Used Second Hand Smoke Exposure: No Advance Directives Date on File: 08/08/23 service: No Current occupational status: disabled Cognitive needs: No Hearing needs: No Vision needs: Yes Questionnaire PHQ-9 Over the last 2 weeks, how often have you been bothered by any of the following problems? 1. Little interest or pleasure in doing things: not at all 2. Feeling down, depressed, or hopeless: several days 3. Trouble falling or staying asleep, or sleeping too much: not at all 4. Feeling tired or having little energy: not at all 5. Poor appetite or overeating: not at all 6. Feeling bad about yourself - or that you are a failure or have let yourself or your family down: not at all 7. Trouble concentrating on things, such as reading the newspaper or watching television: not at all 8. Moving or speaking so slowly that other people could have noticed. Or the opposite - being so fidgety or restless that you have been moving around a lot more than usual: not at all 9. Thoughts that you would be better off or of hurting yourself in some way: not at all Total score: 1 Depression Screening Interpretation: Positive Depression Screening Follow-up: Existing condition and In treatment Depression Screening Done: Yes 95961 - PHQ-9 Billing: Yes Source: Developed by Drs. Khalif Rodriguez, Columba Bangura, Shyam Timmons and colleagues, with an educational jalil from [employer]. Thrive Questionnaire Date Thrive assessed: 09/28/23 I am a: Patient What is your living situation today?: I have a steady place to live Within the past 12 months, did the food you bought not last and you didn't have the money to get more?: Never true Within the past 12 months, did you worry whether your food would run out before you got money to buy more?: Never true Do you have trouble paying for medicines?: No Do you have trouble getting transportation to medical appointments?: No Do you have trouble paying your heating and electricity bill?: No Do you have trouble taking care of your child, family member or friend?: No Do you have trouble with day-to-day activities such as bathing, preparing meals, shopping, managing finances, etc.?: No Are you currently unemployed and looking for a job?: No Are you interested in more education?: No Please select the resources that you would like help with: None Currently or been in a relationship where the following occur: no concerns reported THRIVE Score: 0 AUDIT C Alcohol Use Questionnaire (AUDIT-C) 1. How often do you have a drink containing alcohol?: Never 3. How often do you have six or more drinks on one occasion?: Never Total Score: 0 Score Reviewed/Action Taken: Yes ALEKS-7 AMB Questionnaire ALEKS-7 Date ALEKS - 7 assessed: 07/23/23 Source: Developed by Drs. Khalif Rodriguez, Columba Bangura, Shyam Timmons and colleagues, with an educational jalil from [employer]. ALEKS-7 Assessment Billing ALEKS-7 Assessment Tool: pt declined-do not bill Review of Systems Const Denies chills, Reports fatigue, Denies fever(s) and Denies headache(s) ENT Denies dysphagia, Denies dizziness, Denies otalgia, Denies headache(s), Reports neck pain (chronic), Denies odynophagia and Denies sore throat Card Denies chest pain, Reports palpitations (on and off) and Denies dyspnea Resp Denies chest congestion, Denies cough, Denies dyspnea and Denies wheezing GI Denies abdominal pain, Denies constipation, Denies dysphagia, Denies heartburn, Denies diarrhea, Denies nausea, Denies odynophagia and Denies vomiting Denies hematuria, Denies difficulty voiding, Denies nocturia and Denies dysuria Musc Reports back pain (chronic), Reports myalgias (diffuse), Reports arthralgias (involving multiple joints ), Reports neck pain (chronic) and Reports stiffness Skin/Breast Denies rash Neuro Denies dizziness and Denies headache(s) Psych Denies anxiety Endo Reports fatigue and Reports palpitations (on and off) Aller/Immun Denies wheezing Physical exam (Primary Care) Vital Signs: Last Vital Signs Pulse 75 09/28/23 15:56 BP 122/82 09/28/23 15:56 Pulse Ox 97 09/28/23 15:56 Oxygen Delivery Method Room Air 09/28/23 15:56 BMI result Body Mass Index 38.1 Tobacco/Smoking Status: Tobacco use Status Tobacco use date assessed 09/28/23 09/28/23 16:03 Patient Tobacco Use Status Never used Tobacco 09/28/23 15:52 e-Cigarette/Vaping Use Never Used 09/28/23 15:52 Depression Screening Interpretation: Positive Depression Screening Follow-up: Existing condition and In treatment Thrive Assessment: Date of Thrive Assessment Date Thrive assessed 08/28/23 09/28/23 15:52 Currently or been in a relationship where the following occur: no concerns reported Const General: no acute distress and alert HENMT Ears: TM's normal bilaterally and EAC's normal Throat: Yes posterior oropharynx normal and Yes tonsils normal Neck Neck: Yes no lymphadenopathy and Yes supple Thyroid: Thyroid normal Lymphatic: no lymphadenopathy noted Resp Auscultation: clear to auscultation bilaterally, no crackles, no rales and no wheezes Cardio Rate: regular rate Rhythm: regular rhythm Heart sounds: no murmurs GI Palpation (GI): Soft to palpation and nontender Auscultation: normal bowel sounds General: Yes no CVA tenderness Back/Spine/Pelvis Back: no CVA tenderness Cervical Spine: Cervical spine tenderness Thoracic/Lumbar Spine: lumbar spinal tenderness Skin Rashes: no rashes Extrem General: Yes no clubbing, cyanosis or edema Right lower extremity: hip/thigh Details: tenderness Location: of the hip and abnormal ROM (increased pain with weight-bearing and active ROM) Results Reviewed Results Reviewed: Laboratory Tests 05/26/23 08/27/23 09/24/23 10:30 15:33 10:30 WBC 7.6 Hgb 10.9 L Hct 36.0 L Plt Count 329 Sodium 142 Potassium 3.9 Creatinine 0.74 Estimated GFR > 60 Fasting Glucose 81 Hemoglobin A1c % 5.0 Calcium 9.6 AST 23 ALT 31 Triglycerides 342 H 198 H Cholesterol 217 H 245 H LDL Cholesterol, Calc 96 153 H HDL Cholesterol 53 25-OH Vitamin D Total TSH Ur Specific [place] 1.010 Urine Protein Negative Urine Glucose (UA) Negative Urine Blood Negative Urine Nitrite Negative Ur Leukocyte Esterase Negative 09/24/23 10:30 WBC Hgb Hct Plt Count Sodium Potassium Creatinine Estimated GFR Fasting Glucose Hemoglobin A1c % Calcium AST ALT Triglycerides Cholesterol LDL Cholesterol, Calc HDL Cholesterol 25-OH Vitamin D Total 41.9 TSH 2.33 Ur Specific [place] Urine Protein Urine Glucose (UA) Urine Blood Urine Nitrite Ur Leukocyte Esterase Assessment and Plan Assessment & Plan (1) Migraine: Code(s): G43.909 - Migraine, unspecified, not intractable, without status migrainosus Qualifiers: Intractability: not intractable Migraine type: unspecified Status migrainosus presence: without status migrainosus Qualified Code(s): G43.909 - Migraine, unspecified, not intractable, without status migrainosus Plan: Stable lately Reinforced avoidance of migraine triggers Continue Narariptan 2.5 mg once a day as needed and Vitamin B2 tablets 100 mg 2 times a day for headache prophylaxis She was following up with [facility] previously for her migraine headaches but is currently requesting for a referral to [facility] instead as she would like to switch over here to [facility] (2) Palpitations: Comment: had appt w/[facility] 02/2023 & prn follow-up only Code(s): R00.2 - Palpitations Plan: Patient states that her palpitations have not been occurring as often lately Continue Metoprolol 25 mg BID Extended Holter monitor (3 days) and echocardiogram done back in February 2022 both came out normal Holter monitor showed baseline of normal sinus rhythm with average heart beat of 77 beats per minute with no significant pauses or bradycardia noted. There was a total of 4322 PVCs accounting for 1.32% of total beats but no patient reported events noted Was seen by cardiology early last year and was reportedly reassured that her symptoms are primarily from her PVCs and she has no other abnormal cardiac issues or findings Have recommended weight loss and also low dose Metoprolol 25 mg BID, which she is currently still on and she appears to be doing well on the medication so far (3) Pure hypercholesterolemia: Code(s): E78.00 - Pure hypercholesterolemia, unspecified Plan: Results of her labs done a few days ago reviewed and discussed with patient - cautioned that her cholesterol levels have all increased significantly from previous as she reportedly stopped taking her Atorvastatin about a month ago Reinforced low cholesterol diet Have instructed her to start back on her Atorvastatin 20 mg QD JOSE G Will recheck her labs and fasting lipids in 3 to 4 months for follow-up (4) Renal calculi: Code(s): N20.0 - Calculus of kidney Plan: S/P kidney stone removal and stent placement with urology on 05/23/2023 Follow up with urology as scheduled (5) Ureteral stricture, left: Code(s): N13.5 - Crossing vessel and stricture of ureter without hydronephrosis Plan: She currently appears to only have about 45% of preserved left renal function with evidence of high-grade obstruction, likely due to the left ureteral stricture She eventually underwent diagnostic left RPG to further evaluate her left ureteral stricture and left hydronephrosis - retrograde pyelogram revealed (+) widely patent stricture and was negative for high-grade obstruction Follow up with [facility] as scheduled (6) Mild intermittent asthma without complication: Code(s): J45.20 - Mild intermittent asthma, uncomplicated Plan: Stable -? 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 Thomas on 05/03/2021 - she reportedly experienced significant pain relief and was then scheduled for bilateral L3 L4 DR L5 MBB RFA with sedation and flouroscopy but this was denied by her insurance Had a trial of SI joint injection with pain management in February 2023 with good results Follow-up with rheumatology and with [facility] as scheduled (10) Osteoarthritis of multiple joints: Code(s): M15.9 - Polyosteoarthritis, unspecified Qualifiers: Osteoarthritis type: unspecified Qualified Code(s): M15.9 - Polyosteoarthritis, unspecified Plan: Especially involving the right hip and both hands - s/p total right hip arthroplasty last month (August 2023) Continue Nabumetone 750 mg BID PRN Follow up with rheumatology as scheduled (11) Osteopenia: Comment: T scores 03/2023: Femur 0.4, femoral neck-0.7, LS -1.8 FRAX: 4.1/0.1 Code(s): M85.80 - Other specified disorders of bone density and structure, unspecified site Qualifiers: Osteopenia location: lumbar spine Qualified Code(s): M85.88 - Other specified disorders of bone density and structure, other site Plan: She had a recent BASELINE BMD done on 03/30/2023, which revealed (+) osteopenia based on the lowest T-score value of -1.8 in the lumbar spine Her FRAX score is 4.1% She is encouraged to continue daily Vitamin D and Calcium supplements and to try to exercise and stay as active as she can regularly Will continue to monitor her BMD every 2 to 3 years (12) Fibromyalgia: Code(s): M79.7 - Fibromyalgia Plan: Patient is again encouraged to try to stay active and exercise regularly to help manage her fibromyalgia symptoms better Continue Gabapentin 800 mg TID and Duloxetine 60 mg QD (13) Insomnia: Code(s): G47.00 - Insomnia, unspecified Qualifiers: Insomnia type: unspecified Qualified Code(s): G47.00 - Insomnia, unspecified Plan: Sleep hygiene reinforced Continue Zolpidem 10 mg once a day at bedtime as needed (14) Bipolar depression: Code(s): F31.9 - Bipolar disorder, unspecified Plan: Continue Clonazepam 1 mg twice a day as needed and Citalopram 10 mg once a day Follow-up with Psychiatry as scheduled - has been seeing Juan C Garcia of [facility] since 01/11/2022 (15) Obesity (BMI 30-39.9): Code(s): E66.9 - Obesity, unspecified Plan: Reinforced diet/exercise as tolerated/lose weight Plan Follow up in 4 months Orders: Orders Complete Blood Count Auto Diff 4 Months D64.9 - Anemia, unspecified Comprehensive Anderson. Panel Fast 4 Months E78.00 - Pure hypercholesterolemia, unspecified Lipid Panel 4 Months E78.00 - Pure hypercholesterolemia, unspecified TSH reflex Free T4 4 Months E78.00 - Pure hypercholesterolemia, unspecified UA CC w/rflx Micro + Cult 4 Months R30.0 - Dysuria Vitamin D 25-OH Total 4 Months E55.9 - Vitamin D deficiency, unspecified Referrals Neurology Referral G43.909 - Migraine, unspecified, not intractable, without status migrainosus Coding Level of Care Code Est Pt Level 4 (96868) Diagnoses Migraine without status migrainosus, not intractable, unspecified migraine type G43.909 Intractability: not intractable Migraine type: unspecified Status migrainosus presence: without status migrainosus Palpitations R00.2 Pure hypercholesterolemia E78.00 Renal calculi N20.0 Ureteral stricture, left N13.5 Mild intermittent asthma without complication J45.20 Allergic rhinitis, unspecified seasonality, unspecified trigger J30.9 Allergic rhinitis seasonality: unspecified Allergic rhinitis trigger: unspecified Vitamin D deficiency E55.9 HLA-B27 spondyloarthropathy M47.899 Osteoarthritis of multiple joints, unspecified osteoarthritis type M15.9 Osteoarthritis type: unspecified Osteopenia of lumbar spine M85.88 Osteopenia location: lumbar spine Fibromyalgia M79.7 Insomnia, unspecified type G47.00 Insomnia type: unspecified Bipolar depression F31.9 Obesity (BMI 30-39.9) E66.9
[2023-09-28 15:56] VITALS: BP 122/82; PULSE 75; O2SAT 97; BMI 38.1
== END 2023-09-28 16:39 | disposition home or self-care (01) ==
PROVIDERS: PCP Internal Medicine; Visit Provider Internal Medicine
DX: G43.909 Migraine, unspecified, not intractable, without status migrainosus (principal); F31.9 Bipolar disorder, unspecified; R00.2 Palpitations; E78.00 Pure hypercholesterolemia, unspecified; N20.0 Calculus of kidney; N13.5 Crossing vessel and stricture of ureter without hydronephrosis; J45.20 Mild intermittent asthma, uncomplicated; J30.9 Allergic rhinitis, unspecified; E55.9 Vitamin D deficiency, unspecified; M47.899 Other spondylosis, site unspecified; M15.9 Polyosteoarthritis, unspecified; M85.88 Other specified disorders of bone density and structure, other site
CPT/HCPCS: 99214

== ENCOUNTER 2023-10-01 14:01 | Outpatient (AMB) | payer OTHER, SELFPAY ==
--- NOTE | 2023-10-01 14:03 | MHC.OFFVIS ---
Intake Intake Visit Reasons: PO-RT CHRISTEL 08/15/23 NE Intake Note: Yanci is a 53 year old female who presents to the office today for a PO RT CHRISTEL 08/15/23. Pt states she is feeling well and thinks physical therapy is helping as well. Accompanied by: Spouse Allergies Penicillins [PENICILLINS] Allergy (Severe, Verified 10/01/23 14:03) HIVES Iodinated Contrast Media [IV CONTRAST] Allergy (Intermediate, Verified 10/01/23 14:03) HIVES peanut [PEANUTS] Allergy (Intermediate, Verified 10/01/23 14:03) HIVES shellfish derived [SHELLFISH DERIVED] Allergy (Intermediate, Verified 10/01/23 14:03) HIVES almond Allergy (Mild, Verified 10/01/23 14:03) Hives cat dander Allergy (Mild, Verified 10/01/23 14:03) cough/hives dog dander Allergy (Mild, Verified 10/01/23 14:03) cough/hives pollen extracts Allergy (Mild, Verified 10/01/23 14:03) runny nose, itchy eyes HPI PO-RT CHRISTEL 08/15/23 NE HPI Details Yanci is a 53 year old woman who presents ~7 weeks S/P right CHRISTEL. She says she is doing well and has been attending PT. [facility] Medical History Hydronephrosis, bilateral Osteopenia Renal calculi Sacroiliac joint pain Encounter for medication monitoring Palpitations Gastritis Fibromyalgia Hx of small bowel obstruction Abdominal pain Obesity (BMI 30-39.9) Bipolar depression Insomnia HLA-B27 spondyloarthropathy Osteoarthritis of multiple joints Vitamin D deficiency Migraine Allergic rhinitis Mild intermittent asthma without complication Pure hypercholesterolemia Primary osteoarthritis of right hip Lumbar spondylosis Surgical History History of total hip arthroplasty (~08/15/23) S/P cystourethroscopy with dilation of urethral stricture (~07/21/20) History of esophagogastroduodenoscopy (EGD) Hx of unilateral oophorectomy Hx of colonoscopy Hx of cholecystectomy Hx of cystoscopy History of extraction of renal calculus History of carpal tunnel surgery History of hand surgery History of hysterectomy Family History Father Kidney problem Diabetes Mother Kidney malignancy Diabetes Brother Asthma Diabetes Social History Household Members: Spouse Housing: House Are you a primary animal caregiver to a significant other at home: No Do you presently have visiting nurse or other home services: Yes Unable to assess alcohol history related to: Unknown Alcohol intake: never Comment: counts correct Patient Tobacco Use Status: Never used Tobacco e-Cigarette/Vaping Use: Never Used Second Hand Smoke Exposure: No Advance Directives Date on File: 08/08/23 service: No Current occupational status: disabled Cognitive needs: No Hearing needs: No Vision needs: Yes Review of Systems Const All systems reviewed & are unremarkable except as noted in HPI and below Physical Exam Const General: no acute distress, alert and awake Orientation/consciousness: patient oriented x3 HEENT Head: Yes normocephalic and Yes atraumatic Eyes EOM: EOMs intact bilaterally Resp Effort & Inspection: normal respiratory effort and able to speak in complete sentences Cardio Jugular venous distension: no JVD Skin General skin exam: turgor normal Rashes: no rashes Neuro General: patient oriented x3 Extrem Other: no gait disturbance no pain with hip ROM Psych Appearance: grossly normal Affect: normal affect Attitude: cooperative Assessment & Plan Assessment & Plan (1) Status post total hip replacement, right: Code(s): Z96.641 - Presence of right artificial hip joint Plan: Doing well COntinue PT f/u 6 weeks Plan Prepared for Simone Zepeda MD by Hank Mcdowell, medical information officer, on 10/01/23 at 2:14 PM, EST. Coding Level of Care Code Global (04733) Diagnoses Status post total hip replacement, right Z96.641
== END 2023-10-01 14:25 | disposition home or self-care (01) ==
PROVIDERS: PCP Internal Medicine; Visit Provider Orthopaedic Surgery
DX: Z96.641 Presence of right artificial hip joint (principal)
CPT/HCPCS: 99024

== ENCOUNTER → 2023-10-01 14:01 | Outpatient (BNVA) | payer OTHER, SELFPAY | PROVIDERS: PCP Internal Medicine; Visit Provider Orthopaedic Surgery | DX: Z47.1 Aftercare following joint replacement surgery (principal); Z96.641 Presence of right artificial hip joint | CPT/HCPCS: 99212 ==

== ENCOUNTER 2023-11-12 14:01 | Outpatient (REF) | payer OTHER, SELFPAY ==
--- NOTE | ~2023-11-12 | XR_ITS ---
EXAMINATION: XR PELVIS CLINICAL INFORMATION: Hip pain COMPARISON: 08/15/2023 TECHNIQUE: AP view of the pelvis. FINDINGS: AP view of the pelvis demonstrates right hip arthroplasty without evidence of hardware complication. Dislocation cannot be excluded on this single AP view. Pelvic surgical clips are noted. Mild degenerative changes of the left hip joint are partially visualized. XR/XR pelvis 1-2V IMPRESSION: AP view of the pelvis demonstrates right hip arthroplasty without evidence of hardware complication. Dislocation cannot be excluded on this single AP view.
== END 2023-11-12 14:02 | disposition home or self-care (01) ==
LOC: HO.HOSX 14:01
PROVIDERS: Visit Provider Orthopaedic Surgery
DX: M25.559 Pain in unspecified hip (principal); Z96.641 Presence of right artificial hip joint; Z47.1 Aftercare following joint replacement surgery
CPT/HCPCS: 72170; 99212

== ENCOUNTER 2023-11-12 14:02 | Outpatient (AMB) | payer OTHER, SELFPAY ==
--- NOTE | 2023-11-12 14:13 | A.OFFVIS_ITS ---
Intake Vital Signs 11/12/23 14:16 Height 5 ft Weight 190 lb BMI 37.1 Intake Visit Reasons: PO-RT CHRISTEL 08/15/23 NE-follow up Intake Note: Yanci is a 53 year old female who presents today for a post operative visit of her right hip, s/p Rt CHRISTEL 08/15/23 NE. Patient reports she is doing well. She wants to know if she can travel, concerned if she will have issues going through medical detectors and wants to know if she will need a medical card. Accompanied by: Spouse Allergies hazelnut Allergy (Severe, Verified 11/12/23 14:18) Itching, coughing, and hives Penicillins [PENICILLINS] Allergy (Severe, Verified 10/01/23 14:03) HIVES Iodinated Contrast Media [IV CONTRAST] Allergy (Intermediate, Verified 10/01/23 14:03) HIVES peanut [PEANUTS] Allergy (Intermediate, Verified 10/01/23 14:03) HIVES shellfish derived [SHELLFISH DERIVED] Allergy (Intermediate, Verified 10/01/23 14:03) HIVES almond Allergy (Mild, Verified 10/01/23 14:03) Hives cat dander Allergy (Mild, Verified 10/01/23 14:03) cough/hives dog dander Allergy (Mild, Verified 10/01/23 14:03) cough/hives pollen extracts Allergy (Mild, Verified 10/01/23 14:03) runny nose, itchy eyes birch trees Allergy (Severe, Uncoded 11/12/23 14:18) Itching HPI PO-RT CHRISTEL 08/15/23 NE-follow up HPI Details Yanci is a 53 year old female who presents today for a post operative visit of her right hip, s/p Rt CHRISTEL 08/15/23 NE. Patient reports she is doing well. She wants to know if she can travel, concerned if she will have issues going through medical detectors and wants to know if she will need a medical card. [facility] Medical History Hydronephrosis, bilateral Osteopenia Renal calculi Sacroiliac joint pain Encounter for medication monitoring Palpitations Gastritis Fibromyalgia Hx of small bowel obstruction Abdominal pain Obesity (BMI 30-39.9) Bipolar depression Insomnia HLA-B27 spondyloarthropathy Osteoarthritis of multiple joints Vitamin D deficiency Migraine Allergic rhinitis Mild intermittent asthma without complication Pure hypercholesterolemia Primary osteoarthritis of right hip Lumbar spondylosis Surgical History History of total hip arthroplasty (~08/15/23) S/P cystourethroscopy with dilation of urethral stricture (~07/21/20) History of esophagogastroduodenoscopy (EGD) Hx of unilateral oophorectomy Hx of colonoscopy Hx of cholecystectomy Hx of cystoscopy History of extraction of renal calculus History of carpal tunnel surgery History of hand surgery History of hysterectomy Family History Father Kidney problem Diabetes Mother Kidney malignancy Diabetes Brother Asthma Diabetes Social History Household Members: Spouse Housing: House Are you a primary pharmacist critical care to a significant other at home: No Do you presently have visiting nurse or other home services: Yes Unable to assess alcohol history related to: Unknown Alcohol intake: never Comment: counts correct Patient Tobacco Use Status: Never used Tobacco e-Cigarette/Vaping Use: Never Used Second Hand Smoke Exposure: No Advance Directives Date on File: 08/08/23 service: No Current occupational status: disabled Cognitive needs: No Hearing needs: No Vision needs: Yes Physical Exam Vital Signs: BMI result Body Mass Index 37.1 Extrem Other: walking comfortably No pain with hip range of motion Results Reviewed Results Reviewed: I personally reviewed relevant radiographs. RIght CHRISTEL in expected post operative position with no hardware complications or evidence of loosening Assessment & Plan Assessment & Plan (1) Status post total hip replacement, right: Code(s): Z96.641 - Presence of right artificial hip joint Plan: This is a 53-year-old woman who is status post right hip replacement. She is doing well. No concerns. She may follow-up as needed or at the 1 year time point. Dental prophylaxis discussed. Orders: Orders XR pelvis 1-2V 11/12/23 M25.559 - Pain in unspecified hip Coding Level of Care Code Global (17279) Diagnoses Status post total hip replacement, right Z96.641
[2023-11-12 14:16] VITALS: BMI 37.1
== END 2023-11-12 14:47 | disposition home or self-care (01) ==
PROVIDERS: PCP Internal Medicine; Visit Provider Orthopaedic Surgery
DX: Z96.641 Presence of right artificial hip joint (principal)
CPT/HCPCS: 99024

== ENCOUNTER 2023-11-16 14:00 | Outpatient (RCR) | payer OTHER, SELFPAY ==
--- NOTE | 2023-09-07 15:05 | MHC.PT.EP ---
[facility] [place] [facility] [place] [facility] [place] Office [address] Giorgio Allen [address] [phone] F: [phone] F: [phone] F: [phone] F: [phone] Physical Therapy Plan of Care Date of Evaluation: 09/07/23 Date of Surgery: 08/15/2023 Diagnosis: s/p RIGHT post CHRISTEL (DOS: 08/15/2023) Assessment: Patient is a pleasant 53 y.o. female who is referred to PT by Aki Beck PA-C with Dx of s/p RIGHT CHRISTEL performed by Dr. Simone Zepeda MD. Patient impairments include pain, weakness, limited ROM, healing incision site, antalgic gait. Patient current functional limitations are walking normally, reciprocal stairs, bending, rolling over in bed. Patient will benefit from skilled PT to address aforementioned impairments and functional limitations to meet established goals Frequency and Duration: The patient will be seen 2x/week for 4 weeks Short Term Goals: 2 weeks Patient demonstrates consistency and independence with HEP to self manage symptoms. Patient is able to verbalize her RIGHT posterior hip precautions without cueing. Custodial Goals: 4 weeks Patient presents with increased R hip abduction 4+/5 to be able to ambulate without trendelenberg compensation with cane. Patient presents with increased R hip flexion strength 4+/5 to be able to ascend/descend reciprocal stairs with railing. Treatment Plan: Modalities to reduce pain, spasms and effusion. Manual therapy to restore motion and function. Therapeutic exercise to improve strength and flexibility. Neuromuscular re-education for posture and balance. Therapeutic activities to return to functional activities of daily living. Electronically signed by: Please sign and return to therapist. Thank you for your referral.
--- NOTE | 2023-11-16 16:07 | MHC.PT.DC ---
[facility] [place] Office [place] Office [place] Office [address] Giorgio Allen [address] [facility] [phone] F: [phone] F: [phone] F: [phone] F: [phone] Physical Therapy Discharge Report Diagnosis: s/p RIGHT post CHRISTEL (DOS: 08/15/2023) Date of Surgery: 08/15/2023 Date of Evaluation: 09/07/23 Date of Discharge: 11/16/23 Treatments to Date: 13 Cancellations to Date: No Shows to Date: Discharge Status: Achieved Goals Improved Function Independent with HEP Discharge Summary: Yanci presents with improvements in ROM and strength, is able to ambulate without AD use. She has an independent HEP to continue to make gains. She feels ready for discharge this session. Electronically signed by: Angella Briones, PT, DPT Please sign and return to therapist. Thank you for your referral.
== END 2023-11-16 16:08 | disposition home or self-care (01) ==
LOC: HO.PT 14:00
PROVIDERS: PCP Internal Medicine; Visit Provider Physician Assistant
DX: Z96.641 Presence of right artificial hip joint (principal)
CPT/HCPCS: 97110; 97112; 97140; 97161; 97530

== ENCOUNTER 2023-12-03 14:32 | Outpatient (AMB) | payer OTHER, SELFPAY ==
[2023-12-03 14:38] VITALS: BP 130/78; PULSE 70; O2SAT 98; BMI 37.2
--- NOTE | 2023-12-03 14:38 | A.OFFVIS_ITS ---
Vital Signs 12/03/23 14:38 Height 5 ft Weight 190 lb 7.67 oz BMI 37.2 BP 130/78 Blood Pressure Location Rt brachial Position Sitting Pulse 70 Pulse Source Pulse Oximeter Pulse Oximetry (%) 98 Oxygen Delivery Method Room Air Intake Visit Reasons: OA/FM Intake Note: Patient last seen 08/01/23 presents today for follow up. Reports right hip replacement in August by Dr Zepeda Today she has pain in thigh Web Development Director Required: No Accompanied by: Self / Same As Patient Allergies hazelnut Allergy (Severe, Verified 12/03/23 14:41) Itching, coughing, and hives Penicillins [PENICILLINS] Allergy (Severe, Verified 12/03/23 14:41) HIVES Iodinated Contrast Media [IV CONTRAST] Allergy (Intermediate, Verified 12/03/23 14:41) HIVES peanut [PEANUTS] Allergy (Intermediate, Verified 12/03/23 14:41) HIVES shellfish derived [SHELLFISH DERIVED] Allergy (Intermediate, Verified 12/03/23 14:41) HIVES almond Allergy (Mild, Verified 12/03/23 14:41) Hives cat dander Allergy (Mild, Verified 12/03/23 14:41) cough/hives dog dander Allergy (Mild, Verified 12/03/23 14:41) cough/hives pollen extracts Allergy (Mild, Verified 12/03/23 14:41) runny nose, itchy eyes birch trees Allergy (Severe, Uncoded 12/03/23 14:41) Itching Medication List - Last Reconciled 12/03/23 by Johnnie Britt MD albuterol sulfate 90 mcg/actuation 2 puffs inhalation Q4-6H PRN atorvastatin 20 mg PO DAILY baclofen 20 mg PO DAILY bimatoprost 0.01% (Lumigan) 1 drp ophthalmic (eye) BEDTIME bisacodyl (Dulcolax (bisacodyl)) 10 mg (2 x 5 mg) PO BEDTIME cetirizine (Zyrtec) 10 mg PO DAILY PRN cholecalciferol (vitamin D3) 50 mcg PO DAILY clonazepam (Klonopin) 1 mg PO BID cyclosporine 0.05% (Restasis) 1 drp ophthalmic (eye) Q12H docusate sodium 100 mg PO BID PRN dorzolamide-timolol 22.3-6.8 mg/mL 1 drp ophthalmic (eye) BID duloxetine (Cymbalta) 60 mg PO DAILY epinephrine 0.3 mg IM ONCE PRN famotidine 20 mg PO BEDTIME fluticasone propionate 50 mcg/actuation 1 spray intranasal DAILY PRN fluticasone propionate 220 mcg/actuation (Flovent HFA) 1 puff inhalation BID PRN gabapentin 800 mg PO BID mometasone 100 mcg/actuation (Asmanex HFA) 1 puff inhalation BID PRN montelukast (Singulair) 10 mg PO BEDTIME naratriptan 2.5 mg PO DAILY MRX1 PRN omalizumab (Xolair) 150 mg subcut Q3W ondansetron 4 mg PO Q8H PRN pantoprazole 40 mg PO DAILY riboflavin (vitamin B2) 100 mg PO TID [SHOWER CHAIR As directed] tramadol 50 mg PO BID walker Folding Front wheeled walker zolpidem (Ambien) 10 mg PO BEDTIME PRN 30 days HPI Comments Details: 53-year-old female with fibromyalgia and osteoarthritis returns for follow-up. She is s/p right hip replacement 08/2023. She feels much better overall. Right hip pain has improved. Continues to have pain on the outer aspect of her right thigh. Continues to have back pain where she had fractures. Continues to take tramadol 50 mg, mostly 2 tabs daily. Most recent history by Dr. Lou 07/2023: The patient returns for evaluation of her osteoarthritis and fibromyalgia. She again complains of pain in the right thigh, right groin, and buttock. This pain radiates down to the anterior right knee. There is also some low back pain and pain a little bit distal to the right knee as well. She has seen Orthopedics and they agree that surgical treatment would be appropriate so she has a hip replacement planned for August 15. Preoperative testing has been pursued. She remains on the tramad ol 50 mg b.i.d. with questionable benefit, baclofen 20 b.i.d. p.r.n., bupropion, clonazepam, and duloxetine. She has some other pains in the neck, lower back, and hands but these are minimal compared to her hip pain. [facility] Medical History Hydronephrosis, bilateral Osteopenia Renal calculi Sacroiliac joint pain Encounter for medication monitoring Palpitations Gastritis Fibromyalgia Hx of small bowel obstruction Abdominal pain Obesity (BMI 30-39.9) Bipolar depression Insomnia HLA-B27 spondyloarthropathy Osteoarthritis of multiple joints Vitamin D deficiency Migraine Allergic rhinitis Mild intermittent asthma without complication Pure hypercholesterolemia Primary osteoarthritis of right hip Lumbar spondylosis Surgical History History of total hip arthroplasty (~08/15/23) S/P cystourethroscopy with dilation of urethral stricture (~07/21/20) History of esophagogastroduodenoscopy (EGD) Hx of unilateral oophorectomy Hx of colonoscopy Hx of cholecystectomy Hx of cystoscopy History of extraction of renal calculus History of carpal tunnel surgery History of hand surgery History of hysterectomy Family History Father Kidney problem Diabetes Mother Kidney malignancy Diabetes Brother Asthma Diabetes Social History Household Members: Spouse Housing: House Are you a primary med care manager to a significant other at home: No Do you presently have visiting nurse or other home services: Yes Unable to assess alcohol history related to: Unknown Alcohol intake: never Comment: counts correct Patient Tobacco Use Status: Never used Tobacco e-Cigarette/Vaping Use: Never Used Second Hand Smoke Exposure: No Advance Directives Date on File: 08/08/23 service: No Current occupational status: disabled Cognitive needs: No Hearing needs: No Vision needs: Yes Review of Systems Musc Reports back pain and Reports arthralgias Physical Exam Vital Signs: Last Vital Signs Pulse 70 12/03/23 14:38 BP 130/78 12/03/23 14:38 Pulse Ox 98 12/03/23 14:38 Oxygen Delivery Method Room Air 12/03/23 14:38 BMI result Body Mass Index 37.2 Const General: cooperative, healthy appearing and comfortable Nutritional Appearance: obese morbidly obese Orientation/consciousness: patient oriented x3 Limitations: no limitations HEENT Head: Yes normocephalic and Yes atraumatic Mouth: moist mucous membranes Resp Effort & Inspection: normal respiratory effort and able to speak in complete sentences Auscultation: clear to auscultation bilaterally Cardio Rate: regular rate Rhythm: regular rhythm Neuro General: patient oriented x3 Extrem Other: Few fibromyalgia tender points No active synovitis Assessment & Plan Assessment & Plan (1) Encounter for medication monitoring: Comment: Tramadol pain contract updated 10/02/2022 Code(s): Z51.81 - Encounter for therapeutic drug level monitoring Category: Medical Plan: Patient still using 2 tabs of tramadol daily. Mostly for her degenerative arthritis of her spine. Tramadol refilled (2) Osteopenia: Comment: T scores 03/2023: Femur 0.4, femoral neck-0.7, LS -1.8 FRAX: 4.1/0.1 Code(s): M85.80 - Other specified disorders of bone density and structure, unspecified site Category: Medical Qualifiers: Osteopenia location: lumbar spine Qualified Code(s): M85.88 - Other specified disorders of bone density and structure, other site Plan: No antiresorptives needed (3) Lumbar spondylosis: Comment: Humira 11/2017-12/2017 Methotrexate: 04/2019-07/2019 Sulfasalazine : 04/2019-07/2019 Code(s): M47.816 - Spondylosis without myelopathy or radiculopathy, lumbar region Category: Medical Plan: Previously diagnosed with a spondyloarthropathy.? Was on different DMARDs without improvement. Likely her symptoms are due to degenerative arthritis (4) Status post total hip replacement, right: Code(s): Z96.641 - Presence of right artificial hip joint Category: Surgical Plan: Right hip pain much improved since after replacement Plan I spent 22 minutes reviewing patient's chart, evaluating patient, placing orders, counseling patient and documenting in the chart Medications: Refilled tramadol 50 mg PO BID 60 tabs 3RF M47.816 - Spondylosis without myelopathy or radiculopathy, lumbar region Coding Level of Care Code Est Pt Level 4 (68733) Diagnoses Encounter for medication monitoring Z51.81 Osteopenia of lumbar spine M85.88 Osteopenia location: lumbar spine Lumbar spondylosis M47.816 Status post total hip replacement, right Z96.641
== END 2023-12-03 15:11 | disposition home or self-care (01) ==
PROVIDERS: PCP Internal Medicine; Visit Provider Student in an Organized Health Care Education/Training Program
DX: Z51.81 Encounter for therapeutic drug level monitoring (principal); M85.88 Other specified disorders of bone density and structure, other site; M47.816 Spondylosis without myelopathy or radiculopathy, lumbar region; Z96.641 Presence of right artificial hip joint
CPT/HCPCS: 99214

== ENCOUNTER → 2023-12-03 14:32 | Outpatient (BNVA) | payer OTHER, SELFPAY | PROVIDERS: PCP Internal Medicine; Visit Provider Student in an Organized Health Care Education/Training Program | DX: M79.7 Fibromyalgia (principal); M85.88 Other specified disorders of bone density and structure, other site; M47.816 Spondylosis without myelopathy or radiculopathy, lumbar region; Z51.81 Encounter for therapeutic drug level monitoring; Z96.641 Presence of right artificial hip joint | CPT/HCPCS: 99212 ==

== ENCOUNTER 2024-01-07 14:26 | Outpatient (AMB) | payer OTHER, SELFPAY ==
--- NOTE | 2024-01-07 15:22 | A.OFFVIS_ITS ---
Vital Signs 01/07/24 15:39 Height 5 ft Weight 190 lb BMI 37.1 Intake Visit Reasons: OV-RT CHRISTEL 08/15/23 NE-follow up Intake Note: aYnci a 53 year old femlae who presents today for a follow up s/p right CHRISTEL on 08/15/23 NE. Patient reports she continues to have intermittent pain that radiates down her leg to her thing and calf area. She has completed PT. Allergies hazelnut Allergy (Severe, Verified 01/07/24 15:39) Itching, coughing, and hives Penicillins [PENICILLINS] Allergy (Severe, Verified 01/07/24 15:39) HIVES Iodinated Contrast Media [IV CONTRAST] Allergy (Intermediate, Verified 01/07/24 15:39) HIVES peanut [PEANUTS] Allergy (Intermediate, Verified 01/07/24 15:39) HIVES shellfish derived [SHELLFISH DERIVED] Allergy (Intermediate, Verified 01/07/24 15:39) HIVES almond Allergy (Mild, Verified 01/07/24 15:39) Hives cat dander Allergy (Mild, Verified 01/07/24 15:39) cough/hives dog dander Allergy (Mild, Verified 01/07/24 15:39) cough/hives pollen extracts Allergy (Mild, Verified 01/07/24 15:39) runny nose, itchy eyes birch trees Allergy (Severe, Uncoded 01/07/24 15:39) Itching HPI HPI OV-RT CHRISTEL 08/15/23 NE-follow up: Details: 53-year-old female who returns to the office today for a follow-up of right CHRISTEL, 08/15/[address] Zepeda. She continues to have pain in her thighs that radiates down to her legs. Her pain is aggravated with ambulation. She is doing well otherwise and has no other concerns today. [facility] Medical History Hydronephrosis, bilateral Osteopenia Renal calculi Sacroiliac joint pain Encounter for medication monitoring Palpitations Gastritis Fibromyalgia Hx of small bowel obstruction Abdominal pain Obesity (BMI 30-39.9) Bipolar depression Insomnia HLA-B27 spondyloarthropathy Osteoarthritis of multiple joints Vitamin D deficiency Migraine Allergic rhinitis Mild intermittent asthma without complication Pure hypercholesterolemia Primary osteoarthritis of right hip Lumbar spondylosis Surgical History History of total hip arthroplasty (~08/15/23) S/P cystourethroscopy with dilation of urethral stricture (~07/21/20) History of esophagogastroduodenoscopy (EGD) Hx of unilateral oophorectomy Hx of colonoscopy Hx of cholecystectomy Hx of cystoscopy History of extraction of renal calculus History of carpal tunnel surgery History of hand surgery History of hysterectomy Family History Father Kidney problem Diabetes Mother Kidney malignancy Diabetes Brother Asthma Diabetes Social History Household Members: Spouse Housing: House Are you a primary professional healthcare representative to a significant other at home: No Do you presently have visiting nurse or other home services: Yes Unable to assess alcohol history related to: Unknown Alcohol intake: never Comment: counts correct Patient Tobacco Use Status: Never used Tobacco e-Cigarette/Vaping Use: Never Used Second Hand Smoke Exposure: No Advance Directives Date on File: 08/08/23 service: No Current occupational status: disabled Cognitive needs: No Hearing needs: No Vision needs: Yes Review of Systems Const All systems reviewed & are unremarkable except as noted in HPI and below Physical Exam Vital Signs: BMI result Body Mass Index 37.1 Extrem Other: Right hip: Incision well healed. She has no pain with ROM of hip. Mild discomfort with hip flexion. She also has tenderness over the SI joint. Positive SLR. Assessment & Plan Assessment & Plan (1) Status post total hip replacement, right: Code(s): Z96.641 - Presence of right artificial hip joint Category: Surgical Plan We discussed options which include physical therapy and a referral to Dr. Fernandes. She would like to hold off on physical therapy at this time. She will meet with Dr. Fernandes to discuss evaluation and treatment recommendations. Patient Instructions: Scribed for Aki Beck PA-C, by [facility] or medical, on 01/07/2024 at 3:00 PM EST.? I, Aki Beck PA-C, have personally reviewed and agree with the information entered by the scribe. Coding Level of Care Code Est Pt Level 3 (08162) Diagnoses Status post total hip replacement, right Z96.646
[2024-01-07 15:39] VITALS: BMI 37.1
== END 2024-01-07 15:47 | disposition home or self-care (01) ==
PROVIDERS: PCP Internal Medicine; Visit Provider Physician Assistant
DX: Z47.1 Aftercare following joint replacement surgery (principal); Z96.641 Presence of right artificial hip joint
CPT/HCPCS: 99213

== ENCOUNTER → 2024-01-07 14:26 | Outpatient (BNVA) | payer OTHER, SELFPAY | PROVIDERS: PCP Internal Medicine; Visit Provider Physician Assistant | DX: Z96.641 Presence of right artificial hip joint (principal) | CPT/HCPCS: 99212 ==

== ENCOUNTER 2024-01-11 15:33 | Outpatient (AMB) | payer OTHER, SELFPAY ==
--- NOTE | 2024-01-11 15:50 | MHC.OFFVIS ---
Vital Signs 01/11/24 15:55 Height 5 ft Weight 192 lb 3.889 oz BMI 37.5 BP 130/60 Blood Pressure Location Rt brachial Position Sitting Pulse 60 Pulse Source Pulse Oximeter Pulse Oximetry (%) 98 Oxygen Delivery Method Room Air Intake Visit Reasons: follow up Intake Note: Yanci presents to the office today for a scheduled FUV. CC; Pt reports that they have seen little to no improvement in their sx. Pt states that they had another episode of severe vomiting from Sunday night into Sunday morning and had missed work because of it. Lining Strap Closer Required: No Allergies hazelnut Allergy (Severe, Verified 01/11/24 15:54) Itching, coughing, and hives Penicillins [PENICILLINS] Allergy (Severe, Verified 01/11/24 15:54) HIVES Iodinated Contrast Media [IV CONTRAST] Allergy (Intermediate, Verified 01/11/24 15:54) HIVES peanut [PEANUTS] Allergy (Intermediate, Verified 01/11/24 15:54) HIVES shellfish derived [SHELLFISH DERIVED] Allergy (Intermediate, Verified 01/11/24 15:54) HIVES almond Allergy (Mild, Verified 01/11/24 15:54) Hives cat dander Allergy (Mild, Verified 01/11/24 15:54) cough/hives dog dander Allergy (Mild, Verified 01/11/24 15:54) cough/hives pollen extracts Allergy (Mild, Verified 01/11/24 15:54) runny nose, itchy eyes birch trees Allergy (Severe, Uncoded 01/07/24 15:39) Itching HPI HPI follow up: Details: LAST VISIT: IBS (irritable bowel syndrome) GERD (gastroesophageal reflux disease) Postprandial abdominal bloating Plan Patient can start taking pantoprazole in the morning. She may take famotidine at bedtime on as needed basis. Discussed with patient avoiding dietary triggers and late night snacking. Continue taking bisacodyl tablets and Colace. Patient was encouraged to increase fluid intake and activity to promote better bowel motility. Patient is moving more now that she is attending physical therapy. Patient will report any GI concerning symptoms. I will see her in 4 months, sooner on as needed basis. Patient is agreeable to this plan and verbalizes understanding of instructions. She was given the opportunity to ask questions and all questions answered. ? Thank you for allowing me to participate in her care Medications New pantoprazole take one tablet half an hour before breakfast 40 mg PO DAILY 90 tabs 2RF K21.9 Changed Changed From famotidine 20 mg PO BEDTIME PRN Heartburn Changed To famotidine 20 mg PO BEDTIME 90 tabs 2RF Heartburn Changed From bisacodyl (Dulcolax (bisacodyl)) 10 mg PO BEDTIME PRN Constipation Changed To bisacodyl (Dulcolax (bisacodyl)) 10 mg (2 x 5 mg) PO BEDTIME 180 tabs 2RF Constipation TODAY'S VISIT Patient is here today for follow-up. Patient reports that she has been doing fairly well, however last week and patient went to her friend's house and brought home meal that was cooked by her friend. Patient reports that she repeated that in the microwave the next day, Sunday evening. Rice with beans, pork and sausage. Patient reports that about hour after she ate she felt very nauseous and started with epigastric discomfort. Patient began to have severe nausea and vomiting that lasted throughout the night. Patient reports that when she takes pantoprazole in the morning her symptoms are suppressed. Patient will take famotidine on as needed basis at bedtime. Patient reports that Dulcolax is not helping. She is only able to move small amount of stool. Patient denies any melena, hematochezia. Patient is resistant about going for colonoscopy due to last colonoscopy she was found to have a stricture at [address] Bella was unable to pass any further. Patient has a history of hysterectomy, oophorectomy, cystoscopy, status post radiation for cervical cancer. Discussed with patient that possibly she might have adhesions in that area that could be contributing to her constipation. [facility] Medical History Hydronephrosis, bilateral Osteopenia Renal calculi Sacroiliac joint pain Encounter for medication monitoring Palpitations Gastritis Fibromyalgia Hx of small bowel obstruction Abdominal pain Obesity (BMI 30-39.9) Bipolar depression Insomnia HLA-B27 spondyloarthropathy Osteoarthritis of multiple joints Vitamin D deficiency Migraine Allergic rhinitis Mild intermittent asthma without complication Pure hypercholesterolemia Primary osteoarthritis of right hip Lumbar spondylosis Surgical History History of total hip arthroplasty (~08/15/23) S/P cystourethroscopy with dilation of urethral stricture (~07/21/20) History of esophagogastroduodenoscopy (EGD) Hx of unilateral oophorectomy Hx of colonoscopy Hx of cholecystectomy Hx of cystoscopy History of extraction of renal calculus History of carpal tunnel surgery History of hand surgery History of hysterectomy Family History Father Kidney problem Diabetes Mother Kidney malignancy Diabetes Brother Asthma Diabetes Social History Household Members: Spouse Housing: House Are you a primary resident care manager rn to a significant other at home: No Do you presently have visiting nurse or other home services: Yes Unable to assess alcohol history related to: Unknown Alcohol intake: never Comment: counts correct Patient Tobacco Use Status: Never used Tobacco e-Cigarette/Vaping Use: Never Used Second Hand Smoke Exposure: No Advance Directives Date on File: 08/08/23 service: No Current occupational status: disabled Cognitive needs: No Hearing needs: No Vision needs: Yes Review of Systems Const Denies weight gain and Denies weight loss ENT Reports no additional complaints, Denies dysphagia and Denies odynophagia Card Reports no additional complaints Resp Reports no additional complaints GI Denies abdominal pain, Denies belching, Denies melena, Denies bloating, Denies change in bowel habits, Denies dysphagia, Denies excessive flatus, Denies dyspepsia, Denies heartburn, Denies diarrhea, Denies loose stools, Denies nausea, Denies odynophagia and Denies vomiting Musc Reports no additional complaints Neuro Reports no additional complaints Psych Reports no additional complaints Endo Reports no additional complaints Physical Exam Vital Signs: Last Vital Signs Pulse 60 01/11/24 15:55 BP 130/60 01/11/24 15:55 Pulse Ox 98 01/11/24 15:55 Oxygen Delivery Method Room Air 01/11/24 15:55 BMI result Body Mass Index 37.5 Const General: healthy appearing, no acute distress and well developed Nutritional Appearance: obese Orientation/consciousness: patient oriented x3 Resp Effort & Inspection: normal respiratory effort, able to speak in complete sentences, no tracheal deviation and symmetric chest movement Auscultation: clear to auscultation bilaterally Cardio Rate: regular rate GI Inspection: Yes normal to inspection, No distended and Yes obesity Palpation (GI): Soft to palpation, not firm, nontender and No hepatosplenomegaly present Auscultation: normal bowel sounds General: Yes no CVA tenderness Back/Spine/Pelvis Back: no CVA tenderness Skin General skin exam: elasticity normal, turgor normal and dry skin Neuro General: patient oriented x3 Psych Appearance: grossly normal Mental Status: mental status grossly normal Affect: normal affect Assessment & Plan Assessment & Plan (1) Constipation: Code(s): K59.00 - Constipation, unspecified Qualifiers: Constipation type: outlet dysfunction constipation Qualified Code(s): K59.02 - Outlet dysfunction constipation (2) IBS (irritable bowel syndrome): Code(s): K58.9 - Irritable bowel syndrome without diarrhea Qualifiers: Irritable bowel syndrome type: without diarrhea Qualified Code(s): K58.9 - Irritable bowel syndrome without diarrhea (3) GERD (gastroesophageal reflux disease): Code(s): K21.9 - Gastro-esophageal reflux disease without esophagitis Qualifiers: Esophagitis presence: esophagitis presence not specified Qualified Code(s): K21.9 - Gastro-esophageal reflux disease without esophagitis (4) Postprandial abdominal bloating: Code(s): R14.0 - Abdominal distension (gaseous) (5) Nausea and vomiting in adult: Code(s): R11.2 - Nausea with vomiting, unspecified Plan Will order Linzess for patient. Patient was encouraged to try at least for 2 weeks even though she might get diarrhea initially. Patient is to call the office if she will have severe abdominal cramping and no BM for 2-3 days after starting Linzess. Increase fluid intake and activity to promote better bowel motility. Continue PPI. Script for Zofran given. Avoid eating large meals. Patient was encouraged to eat more vegetables. Discussed with patient about possibility to go for colonoscopy to see if Dr. Bell can dilate her bowel. Other option would be to send her for surgical consult with Dr. Sam for removal of adhesions. Patient will follow-up in the office in 2 months, sooner on as needed basis. She is agreeable to this plan and verbalizes understanding of instructions. She was given the opportunity to ask questions and all questions answered. Medications: New ondansetron 4 mg PO Q8H PRN 20 tabs 0RF Nausea linaclotide (Linzess) 145 mcg PO DAILY 30 caps 2RF Coding Level of Care Code Est Pt Level 4 (58786) Diagnoses Constipation due to outlet dysfunction K59.02 Constipation type: outlet dysfunction constipation Irritable bowel syndrome without diarrhea K58.9 Irritable bowel syndrome type: without diarrhea Gastroesophageal reflux disease, unspecified whether esophagitis present K21.9 Esophagitis presence: esophagitis presence not specified Postprandial abdominal bloating R14.0 Nausea and vomiting in adult R11.2 Time Spent (min) 35 Comment 25 minutes spent with patient and additional 10 minutes spent reviewing her records
[2024-01-11 15:55] VITALS: BP 130/60; PULSE 60; O2SAT 98; BMI 37.5
== END 2024-01-11 16:28 | disposition home or self-care (01) ==
PROVIDERS: PCP Internal Medicine; Visit Provider Nurse Practitioner Family
DX: K59.02 Outlet dysfunction constipation (principal); K58.9 Irritable bowel syndrome, unspecified; K21.9 Gastro-esophageal reflux disease without esophagitis; R14.0 Abdominal distension (gaseous); R11.2 Nausea with vomiting, unspecified
CPT/HCPCS: 99214

== ENCOUNTER → 2024-01-11 15:33 | Outpatient (BNVA) | payer OTHER, SELFPAY | PROVIDERS: PCP Internal Medicine; Visit Provider Nurse Practitioner Family | DX: K59.02 Outlet dysfunction constipation (principal); K58.9 Irritable bowel syndrome, unspecified; K21.9 Gastro-esophageal reflux disease without esophagitis; R14.0 Abdominal distension (gaseous); R11.2 Nausea with vomiting, unspecified | CPT/HCPCS: 99212 ==

== ENCOUNTER 2024-01-16 14:33 | Outpatient (AMB) | payer OTHER, SELFPAY ==
--- NOTE | 2024-01-16 14:49 | A.OFFVIS_ITS ---
Vital Signs 01/16/24 15:09 Height 5 ft Weight 192 lb 8 oz BMI 37.6 BP 130/80 Blood Pressure Location Lt brachial Position Sitting Pulse 73 Pulse Source Pulse Oximeter Pulse Oximetry (%) 97 Oxygen Delivery Method Room Air Intake Visit Reasons: INP-Migraines - LVM Intake Note: Patient presents for migraines. Still getting migraines Allergies hazelnut Allergy (Severe, Verified 01/16/24 14:57) Itching, coughing, and hives Penicillins [PENICILLINS] Allergy (Severe, Verified 01/16/24 14:57) HIVES Iodinated Contrast Media [IV CONTRAST] Allergy (Intermediate, Verified 01/16/24 14:57) HIVES peanut [PEANUTS] Allergy (Intermediate, Verified 01/16/24 14:57) HIVES shellfish derived [SHELLFISH DERIVED] Allergy (Intermediate, Verified 01/16/24 14:57) HIVES almond Allergy (Mild, Verified 01/16/24 14:57) Hives cat dander Allergy (Mild, Verified 01/16/24 14:57) cough/hives dog dander Allergy (Mild, Verified 01/16/24 14:57) cough/hives pollen extracts Allergy (Mild, Verified 01/16/24 14:57) runny nose, itchy eyes birch trees Allergy (Severe, Uncoded 01/07/24 15:39) Itching Medication List - Last Reconciled 01/16/24 by GIL Guerrero albuterol sulfate 90 mcg/actuation 2 puffs inhalation Q4-6H PRN atorvastatin 20 mg PO DAILY baclofen 20 mg PO DAILY bimatoprost 0.01% (Lumigan) 1 drp ophthalmic (eye) BEDTIME bisacodyl (Dulcolax (bisacodyl)) 10 mg (2 x 5 mg) PO BEDTIME bupropion HCl XL 150 mg PO QAM cetirizine (Zyrtec) 10 mg PO DAILY PRN cholecalciferol (vitamin D3) 50 mcg PO DAILY clonazepam (Klonopin) 1 mg PO BID cyclosporine 0.05% (Restasis) 1 drp ophthalmic (eye) Q12H docusate sodium 100 mg PO BID PRN dorzolamide-timolol 22.3-6.8 mg/mL 1 drp ophthalmic (eye) BID duloxetine (Cymbalta) 60 mg PO DAILY epinephrine 0.3 mg IM ONCE PRN famotidine 20 mg PO BEDTIME fluticasone propionate 50 mcg/actuation 1 spray intranasal DAILY PRN fluticasone propionate 220 mcg/actuation (Flovent HFA) 1 puff inhalation BID PRN gabapentin 800 mg PO BID linaclotide (Linzess) 145 mcg PO DAILY mometasone 100 mcg/actuation (Asmanex HFA) 1 puff inhalation BID PRN montelukast (Singulair) 10 mg PO BEDTIME naratriptan 2.5 mg PO DAILY MRX1 PRN omalizumab (Xolair) 150 mg subcut Q3W ondansetron 4 mg PO Q8H PRN pantoprazole 40 mg PO DAILY riboflavin (vitamin B2) 100 mg PO TID [SHOWER CHAIR As directed] tramadol 50 mg PO BID walker Folding Front wheeled walker zolpidem (Ambien) 10 mg PO BEDTIME PRN 30 days HPI Comments Details: Left handed 53-yr-old female presents for new pt evaluation of headache disorder. Pt reports she has had migraines since she was 19-20 yrs old w/o known preceding causes. She comes to establish care w/ new neurologist since her previous neurologist, Yeison Edwards PA retired a few years ago. Though has been seen by [facility] neuro since. PMH and ROS are notable for:? Musculoskeletal disorders or injury: OA, neck/back/joint pain, h/o T10-T11 compression fx, right hip THR. fibromyalgia Cramps: sometimes History of concussion/head injury: was struck in the head by a loose baseball at age 3 months- was hospitalized for several days- but denies residual affects. 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 Pertinent denials include: History of concussion/head injury, Sleep d/o, Respiratory d/o, Clotting or hematology d/o, Endocrine or metabolic d/o, History of seizure, syncope, or drop attacks Family history of migraine or other headache disorder Lifestyle considerations: Sleep routine: Usual bedtime: 1-2am and wake-up time: 9-10am Sleep difficulties: Endorses: some difficulty falling asleep or maintaining sleep, Fatigue, Leg Cramps Caffeine use: none Substance use: none Exercise:?trying to exercise, is doing home PT exercises Employment:?disabled Headache questionnaire:? Typical headache characteristics: Prodrome symptoms: none Aura: briefly sees wiggly things, feels dizzy, black dots Pain intensity: severe Location, quality, characteristics: May start mid-frontal or left temporal, and alida retro-orbital Associated symptoms: photophobia, phonophobia, osmophobia, allodynia, nausea, vomiting- sometimes when severe, spinning dizziness, lightheadedness, fatigue, cognitive difficulties, activity intoelrence, standing up worsens headcahe and associated s/s. alida jaw tingling- at times. Postdrome: sometimes lingers into the next Triggers: poor fluid intake,hunger, salty foods, sounds, odors- certain perfumes, too much sun or heat, stress Time of day: No specific time of day Duration and Frequency: 5 migraine attacks per month- which last 1-2 days. How does headache impact your life? Makes it difficult to do her daily activities Current acute medication use/interventions: Naratriptan 2.5mg - causes palpitations. Current preventative medication use: Riboflavin 100mg tid Non-pharmacological interventions: Ice and rest, uses distraction techniques. [facility] Medical History Hydronephrosis, bilateral Osteopenia Renal calculi Sacroiliac joint pain Encounter for medication monitoring Palpitations Gastritis Fibromyalgia Hx of small bowel obstruction Abdominal pain Obesity (BMI 30-39.9) Bipolar depression Insomnia HLA-B27 spondyloarthropathy Osteoarthritis of multiple joints Vitamin D deficiency Migraine Allergic rhinitis Mild intermittent asthma without complication Pure hypercholesterolemia Primary osteoarthritis of right hip Lumbar spondylosis Surgical History History of total hip arthroplasty (~08/15/23) S/P cystourethroscopy with dilation of urethral stricture (~07/21/20) History of esophagogastroduodenoscopy (EGD) Hx of unilateral oophorectomy Hx of colonoscopy Hx of cholecystectomy Hx of cystoscopy History of extraction of renal calculus History of carpal tunnel surgery History of hand surgery History of hysterectomy Family History Father Kidney problem Diabetes Mother Kidney malignancy Diabetes Brother Asthma Diabetes Social History Household Members: Spouse Housing: House Are you a primary foster care social worker to a significant other at home: No Do you presently have visiting nurse or other home services: Yes Unable to assess alcohol history related to: Unknown Alcohol intake: never Comment: counts correct Patient Tobacco Use Status: Never used Tobacco e-Cigarette/Vaping Use: Never Used Second Hand Smoke Exposure: No Advance Directives Date on File: 08/08/23 service: No Current occupational status: disabled Cognitive needs: No Hearing needs: No Vision needs: Yes Physical Exam Vital Signs: Last Vital Signs Pulse 73 01/16/24 15:09 BP 130/80 01/16/24 15:09 Pulse Ox 97 01/16/24 15:09 Oxygen Delivery Method Room Air 01/16/24 15:09 BMI result Body Mass Index 37.6 Const Orientation/consciousness: patient oriented x3 HEENT Other: No palpable scalp tenderness. Head: Yes normocephalic Resp Effort & Inspection: normal respiratory effort and able to speak in complete sentences Neuro General: patient oriented x3 Cranial nerves: Yes CN's II-XII intact bilaterally Cognition (Neuro): normal cognition Gait exam (Neuro): Normal gait present Motor exam (neuro): 5/5 motor strength present throughout Deep tendon reflexes (DTR's): Right triceps reflex intensity grade: 2+, Left triceps reflex intensity grade: 2+, Rt Biceps (C5, C6): 2+, Left biceps reflex intensity grade: 2+, Right brachioradialis reflex intensity grade: 2+, Left brachioradialis reflex intensity grade: 2+, Right patellar reflex intensity grade: 2+ and Left patellar reflex intensity grade: 2+ Coordination: [id number] test normal and tandem gait normal Pupils: Normal pupillary reactivity/response: bilateral Psych Appearance: grossly normal Mental Status: mental status grossly normal Speech and movement: Normal speech and movement present Affect: normal affect Attitude: cooperative Thought process: Normal thought process present Assessment & Plan Assessment & Plan (1) Migraine with aura: Code(s): G43.109 - Migraine with aura, not intractable, without status migrainosus Category: Medical (2) Fatigue: Code(s): R53.83 - Other fatigue Category: Medical (3) Snoring: Code(s): R06.83 - Snoring Category: Medical (4) Sleep difficulties: Code(s): G47.9 - Sleep disorder, unspecified Category: Medical Plan Will request her previous head imaging from [facility]. Pt advised to undergo: HST to assess for sleep apnea For overall headache management: * Optimize good self-care, including but not limited to maintaining a healthy diet, adequate fluid intake, adequate sleep, and engaging in regular physical activity. * Track headaches, especially after any treatment regimen changes. [employer] is one of many headache tracking apps. For acute headache treatment: Discussed importance of taking acute medications at the first sign of headache, however stressed importance of avoiding acute medication overuse (especially with combined headache medications). Stop Naratriptan. Trial Sumatriptan 25-100mg prn, max 200mg/day. Zofran 4mg prn N/V/migraine. Potential adverse effects of triptans, including but not limited to nausea, fatigue, chest tightness/tingling (usually passes within a few minutes), medication overuse headaches. Previous acute migraine medication trials: Excedrin. Naratriptan- causes palpitations. Acute migraine medication contraindications: None at this time For headache prevention medication: Preventative medications should be taken routinely as prescribed for best effect, it may take several weeks for full effect to take effect. Increase/adjust Riboflavin to: Riboflavin 400mg qam Magnesium 400mg qhs StartPropranolol Er 60mg qhs Potential adverse effects of betablockers, including but not limited to fatigue, hypotension, slow heart rate, mood changes, respiratory changes. Previous migraine prevention medication trials: None other. Migraine prevention medication contraindications: Beta-blockers d/t asthma dx. Pt seen in collaboration w/ Dr mUa Sharma. Pt to follow-up in 3-6 months or sooner prn. Orders: Orders RT home sleep study 01/16/24 G47.9 - Sleep disorder, unspecified, R06.83 - Snoring, R53.83 - Other fatigue Medications: New sumatriptan succinate 25 - 100 mg orally at onset of headache, may repeat in 2 hrs PRN; max 2 tabs per day or 4 tabs/week (may take with Ibuprofen or Tylenol) 12 tabs 6RF migraine headache 30 days riboflavin (vitamin B2) 400 mg PO DAILY 30 tabs 6RF 30 days magnesium oxide may hold for loose stools 400 mg PO BEDTIME 30 tabs 6RF 30 days propranolol ER 60 mg PO BEDTIME 30 caps 3RF 30 days Coding Level of Care Code New Pt Level 4 (19583) Diagnoses Migraine with aura G43.109 Fatigue R53.83 Snoring R06.83 Sleep difficulties G47.9
[2024-01-16 15:09] VITALS: BP 130/80; PULSE 73; O2SAT 97; BMI 37.6
== END 2024-01-16 16:12 | disposition home or self-care (01) ==
PROVIDERS: PCP Internal Medicine; Visit Provider Nurse Practitioner Family
DX: G43.109 Migraine with aura, not intractable, without status migrainosus (principal); R53.83 Other fatigue; R06.83 Snoring; G47.9 Sleep disorder, unspecified
CPT/HCPCS: 99204

== ENCOUNTER → 2024-01-16 14:33 | Outpatient (BNVA) | payer OTHER, SELFPAY | PROVIDERS: PCP Internal Medicine; Visit Provider Nurse Practitioner Family | DX: G43.109 Migraine with aura, not intractable, without status migrainosus (principal); G47.9 Sleep disorder, unspecified; R53.83 Other fatigue; R06.83 Snoring | CPT/HCPCS: 99202 ==

== ENCOUNTER 2024-01-29 10:13 | Outpatient (REF) | payer OTHER, SELFPAY ==
[2024-01-29 10:25] LABS: MANUAL DIFF FLAG NO
[2024-01-29 10:35] LABS: Basophils Percent Auto 0.5 % (0-2); Eosinophils Absolute Auto 0.3 X10*3/uL (0.0-0.4); Hematocrit 36.7 % (37.0-47.0); Hemoglobin 11.5 g/dl (12.0-16.0); Imm Gran Abs Auto 0.04 X10*3/uL (0.00-0.03); Imm Gran Pct Auto 0.5 % (0.0-0.4); Lymphocytes Absolute Auto 1.4 X10*3/uL (1.2-4.9); Lymphocytes Percent Auto 16.9 % (20-40); Mean Corpuscular HGB Conc 31.3 g/dl (31.0-35.0); Mean Corpuscular Hemoglobin 26.4 pg (27.0-33.0); Mean Corpuscular Volume 84.2 fL (80.0-98.0); Mean Platelet Volume 9.8 fL (9.4-12.3); Monocytes Absolute Auto 0.5 X10*3/uL (0.1-1.2); Monocytes Percent Auto 6.1 % (2-11); Platelet Count 344 X10*3/uL (160-400); Red Blood Count 4.36 X10*6/uL (4.20-5.50); Red Cell Distribution Width 15.8 % (11.0-16.0); White Blood Count 8.3 X10*3/uL (4.8-10.8)
[2024-01-29 11:06] LABS: Appearance Urine Clear; Color Urine Orange; Glucose Urine UA Negative (Negative); UMIC TRIGGER UACC YES; Urine Blood Negative (Negative); Urine Ketones Negative (Negative)
[2024-01-29 11:30] LABS: Alanine Aminotransferase 17 U/L (0-31); Albumin Level 4.2 g/dL (3.5-5.0); Alkaline Phosphatase 93 U/L (39-117); Anion Gap 13 (12-20); Aspartate Amino Transferase 13 U/L (5-31); Bilirubin Total 0.5 mg/dL (0.0-1.0); Blood Urea Nitrogen 14 mg/dL (9-16); Calcium 9.7 mg/dL (8.4-10.2); Carbon Dioxide 25 mmol/L (22-29); Chloride 109 mmol/L (96-108); Cholesterol 197 mg/dL (<200); Estimated Glomerular Filt Rate > 60; Glucose Fasting 88 mg/dL (60-99); HDL Cholesterol 54 mg/dL (>40); LDL Cholesterol Calculated 111 mg/dL (<100); Potassium 4.3 mmol/L (3.3-5.1); Sodium 143 mmol/L (135-145); Total Protein 7.6 g/dL (6.5-8.0); Triglycerides 164 mg/dL (<150)
[2024-01-29 11:46] LABS: Vitamin D 25-OH Total 36.1 ng/mL (>30)
[2024-01-29 12:54] LABS: Bacteria Urine None Seen (None Seen); Hyaline Casts Urine 0-2 /LPF (0-2); RBC Urine 0-2 /HPF (0-2); Squamous Epithelial Cell Urine 0-2 /HPF (0-2); WBC Urine 0-5 /HPF (0-5)
== END 2024-01-29 10:14 | disposition home or self-care (01) ==
LOC: HO.LAB 10:13
PROVIDERS: PCP Internal Medicine; Visit Provider Internal Medicine
DX: D64.9 Anemia, unspecified (principal); E78.00 Pure hypercholesterolemia, unspecified; E55.9 Vitamin D deficiency, unspecified
CPT/HCPCS: 36415; 80053; 80061; 81001; 81003; 82306; 84443; 85025

== ENCOUNTER 2024-02-01 15:04 | Outpatient (AMB) | payer OTHER, SELFPAY ==
--- NOTE | 2024-02-01 15:19 | A.OFFPC_ITS ---
Vital Signs 02/01/24 15:21 Height 5 ft Weight 193 lb BMI 37.7 BP 118/62 Blood Pressure Location Lt brachial Position Sitting Pulse 66 Pulse Source Pulse Oximeter Pulse Oximetry (%) 100 Oxygen Delivery Method Room Air Intake Visit Reasons: 4mth f/u Intake Note: Patient is here to follow up on HLD, Asthma, OA, Migraine, Lumbar Spiondylosis. Help Desk Associate Required: No Molding Line Operator: Not Required per policy Accompanied by: Self / Same As Patient Allergies hazelnut Allergy (Severe, Verified 02/03/24 12:35) Itching, coughing, and hives Penicillins [PENICILLINS] Allergy (Severe, Verified 02/03/24 12:35) HIVES Iodinated Contrast Media [IV CONTRAST] Allergy (Intermediate, Verified 02/03/24 12:35) HIVES peanut [PEANUTS] Allergy (Intermediate, Verified 02/03/24 12:35) HIVES shellfish derived [SHELLFISH DERIVED] Allergy (Intermediate, Verified 02/03/24 12:35) HIVES almond Allergy (Mild, Verified 02/03/24 12:35) Hives cat dander Allergy (Mild, Verified 02/03/24 12:35) cough/hives dog dander Allergy (Mild, Verified 02/03/24 12:35) cough/hives pollen extracts Allergy (Mild, Verified 02/03/24 12:35) runny nose, itchy eyes birch trees Allergy (Severe, Uncoded 02/03/24 12:35) Itching Medication List - Last Reconciled 02/03/24 by Christ Goodwin MD albuterol sulfate 90 mcg/actuation 2 puffs inhalation Q4-6H PRN atorvastatin 20 mg PO DAILY baclofen 20 mg PO DAILY bimatoprost 0.01% (Lumigan) 1 drp ophthalmic (eye) BEDTIME bupropion HCl XL 150 mg PO QAM cetirizine (Zyrtec) 10 mg PO DAILY PRN cholecalciferol (vitamin D3) 50 mcg PO DAILY clindamycin HCl 600 mg (2 x 300 mg) PO ONCE 1 day clonazepam (Klonopin) 1 mg PO BID cyclosporine 0.05% (Restasis) 1 drp ophthalmic (eye) Q12H docusate sodium 100 mg PO BID PRN dorzolamide-timolol 22.3-6.8 mg/mL 1 drp ophthalmic (eye) BID duloxetine (Cymbalta) 60 mg PO DAILY epinephrine 0.3 mg IM ONCE PRN famotidine 20 mg PO BEDTIME fluticasone propionate 50 mcg/actuation 1 spray intranasal DAILY PRN fluticasone propionate 220 mcg/actuation (Flovent HFA) 1 puff inhalation BID PRN gabapentin 800 mg PO BID linaclotide (Linzess) 145 mcg PO DAILY magnesium oxide 400 mg PO BEDTIME 30 days mometasone 100 mcg/actuation (Asmanex HFA) 1 puff inhalation BID PRN montelukast (Singulair) 10 mg PO BEDTIME omalizumab (Xolair) 150 mg subcut Q3W ondansetron 4 mg PO Q8H PRN pantoprazole 40 mg PO DAILY propranolol ER 60 mg PO BEDTIME 30 days riboflavin (vitamin B2) 400 mg PO DAILY 30 days [SHOWER CHAIR As directed] sumatriptan succinate 25 - 100 mg orally at onset of headache, may repeat in 2 hrs PRN; max 2 tabs per day or 4 tabs/week (may take with Ibuprofen or Tylenol) 30 days tramadol 50 mg PO BID walker Folding Front wheeled walker zolpidem (Ambien) 10 mg PO BEDTIME PRN 30 days Tobacco use date assessed: 02/01/24 Dental Screening Dental Screen Date: 09/28/23 HPI 4mt f/u HPI Details Patient comes in today for her follow up visit States that she feels okay Still has chronic diffuse joint pains and myalgias but states that they are currently manageable She denies any headaches or dizziness Denies any chest pains, no shortness of breath No nausea / vomiting, no abdominal pain No change in bowel habits noted Had her follow-up labs done a few days ago - to discuss her results Patient recalls that she was taking some OTC Pyridium for a urinary tract infection when she had her labs done so her urine sample then was orange in color and her urinalysis results may not be accurate FORMERLY [facility], [facility] Medical History Hydronephrosis, bilateral Osteopenia Renal calculi Sacroiliac joint pain Encounter for medication monitoring Palpitations Gastritis Fibromyalgia Hx of small bowel obstruction Abdominal pain Obesity (BMI 30-39.9) Bipolar depression Insomnia HLA-B27 spondyloarthropathy Osteoarthritis of multiple joints Vitamin D deficiency Migraine Allergic rhinitis Mild intermittent asthma without complication Pure hypercholesterolemia Primary osteoarthritis of right hip Lumbar spondylosis Surgical History History of total hip arthroplasty (~08/15/23) S/P cystourethroscopy with dilation of urethral stricture (~07/21/20) History of esophagogastroduodenoscopy (EGD) Hx of unilateral oophorectomy Hx of colonoscopy Hx of cholecystectomy Hx of cystoscopy History of extraction of renal calculus History of carpal tunnel surgery History of hand surgery History of hysterectomy Family History Father Kidney problem Diabetes Mother Kidney malignancy Diabetes Brother Asthma Diabetes Social History Household Members: Spouse Housing: House Are you a primary child care coordinator to a significant other at home: No Do you presently have visiting nurse or other home services: Yes Unable to assess alcohol history related to: Unknown Alcohol intake: never Comment: counts correct Patient Tobacco Use Status: Never used Tobacco e-Cigarette/Vaping Use: Never Used Second Hand Smoke Exposure: No Advance Directives Date on File: 08/08/23 service: No Current occupational status: disabled Cognitive needs: No Hearing needs: No Vision needs: Yes Questionnaire Thrive Questionnaire Date Thrive assessed: 09/28/23 ALEKS-7 AMB Questionnaire ALEKS-7 Date ALEKS - 7 assessed: 02/01/24 Feeling nervous, anxious, or on edge: 0 = Not at all Not being able to stop or control worryin = Not at all Worrying too much about different things: 0 = Not at all Trouble relaxin = Not at all Being so restless that it is hard to sit still: 0 = Not at all Becoming easily annoyed or irritable: 0 = Not at all Feeling afraid as if something awful might happen: 0 = Not at all Total ALEKS-7 score (0-4 normal; 5-9 mild; 10-14 moderate; 15-21 severe): 0 Source: Developed by Drs. Khalif Rodriguez, Columba Bangura, Shyam Timmons and colleagues, with an educational jalil from [employer]. Review of Systems Const Denies chills, Reports fatigue, Denies fever(s) and Denies headache(s) ENT Denies dysphagia, Denies dizziness, Denies otalgia, Denies headache(s), Reports neck pain (chronic), Denies odynophagia and Denies sore throat Card Denies chest pain, Reports palpitations (occasionally) and Denies dyspnea Resp Denies chest congestion, Denies cough, Denies dyspnea and Denies wheezing GI Denies abdominal pain, Denies constipation, Denies dysphagia, Denies heartburn, Denies diarrhea, Denies nausea, Denies odynophagia and Denies vomiting Denies hematuria, Denies difficulty voiding, Denies nocturia and Denies dysuria (recently but symptoms now improving) Musc Reports back pain (chronic), Reports myalgias (diffuse), Reports arthralgias (involving multiple joints ), Reports neck pain (chronic) and Reports stiffness Skin/Breast Denies rash Neuro Denies dizziness and Denies headache(s) Psych Denies anxiety Endo Reports fatigue and Reports palpitations (occasionally) Aller/Immun Denies wheezing Physical exam (Primary Care) Vital Signs: Last Vital Signs Pulse 66 02/01/24 15:21 BP 118/62 02/01/24 15:21 Pulse Ox 100 02/01/24 15:21 Oxygen Delivery Method Room Air 02/01/24 15:21 BMI result Body Mass Index 37.7 Tobacco/Smoking Status: Tobacco use Status Tobacco use date assessed 02/01/24 02/01/24 15:27 Patient Tobacco Use Status Never used Tobacco 02/01/24 15:27 e-Cigarette/Vaping Use Never Used 02/01/24 15:27 Thrive Assessment: Date of Thrive Assessment Date Thrive assessed 09/28/23 02/01/24 15:27 Const General: no acute distress and alert HENMT Ears: TM's normal bilaterally and EAC's normal Throat: Yes posterior oropharynx normal and Yes tonsils normal Neck Neck: Yes no lymphadenopathy and Yes supple Thyroid: Thyroid normal Lymphatic: no lymphadenopathy noted Resp Auscultation: clear to auscultation bilaterally, no crackles, no rales and no wheezes Cardio Rate: regular rate Rhythm: regular rhythm Heart sounds: no murmurs GI Palpation (GI): Soft to palpation and nontender Auscultation: normal bowel sounds General: Yes no CVA tenderness Back/Spine/Pelvis Back: no CVA tenderness Cervical Spine: Cervical spine tenderness Thoracic/Lumbar Spine: lumbar spinal tenderness Skin Rashes: no rashes Extrem General: Yes no clubbing, cyanosis or edema Right lower extremity: hip/thigh Details: tenderness Location: of the hip and abnormal ROM (increased pain with weight-bearing and active ROM) Results Reviewed Results Reviewed: Laboratory Tests 01/29/24 01/29/24 10:22 10:23 WBC 8.3 Hgb 11.5 L Hct 36.7 L Plt Count 344 Sodium 143 Potassium 4.3 Creatinine 0.76 Estimated GFR > 60 Fasting Glucose 88 Calcium 9.7 AST 13 ALT 17 Triglycerides 164 H Cholesterol 197 LDL Cholesterol, Calc 111 H HDL Cholesterol 54 25-OH Vitamin D Total 36.1 TSH 3.70 Ur Specific [place] 1.020 Urine Protein See Note Urine Glucose (UA) Negative Urine Ketones Negative Urine Blood Negative Urine Nitrite See Note Ur Leukocyte Esterase See Note Assessment and Plan Assessment & Plan (1) Migraine: Code(s): G43.909 - Migraine, unspecified, not intractable, without status migrainosus Qualifiers: Intractability: not intractable Migraine type: unspecified Status migrainosus presence: without status migrainosus Qualified Code(s): G43.909 - Migraine, unspecified, not intractable, without status migrainosus Plan: Stable lately Reinforced avoidance of migraine triggers Continue Narariptan 2.5 mg once a day as needed and Vitamin B2 tablets 100 mg 2 times a day for headache prophylaxis She was following up with [facility] previously for her migraine headaches but is now seeing [facility] for her migraine headaches (2) Palpitations: Comment: had appt w/[facility] 02/2023 & prn follow-up only Code(s): R00.2 - Palpitations Plan: Patient states that her palpitations have not been occurring as often lately Continue Metoprolol 25 mg BID Extended Holter monitor (3 days) and echocardiogram done back in February 2022 both came out normal Holter monitor showed baseline normal sinus rhythm with average heart beat of 77 beats per minute with no significant pauses or bradycardia noted. There was a total of 4322 PVCs accounting for 1.32% of total beats but no patient reported events noted She was seen by cardiology early last year and was reportedly reassured that her symptoms are primarily from her PVCs and she has no other abnormal cardiac issues or findings Have recommended weight loss and also low dose Metoprolol 25 mg BID, which she is currently still on and she appears to be doing well on the medication so far (3) Pure hypercholesterolemia: Code(s): E78.00 - Pure hypercholesterolemia, unspecified Plan: Results of her labs done a few days ago reviewed and discussed with patient - have advised patient that her cholesterol levels have improved significantly from previous Reinforced low cholesterol diet Continue Atorvastatin 20 mg QD JOSE G Will recheck her labs and fasting lipids in 4 months for follow-up (4) Renal calculi: Code(s): N20.0 - Calculus of kidney Plan: S/P kidney stone removal and stent placement with urology on 05/23/2023 Follow up with urology as scheduled (5) Ureteral stricture, left: Code(s): N13.5 - Crossing vessel and stricture of ureter without hydronephrosis Plan: She currently appears to only have about 45% of preserved left renal function with evidence of high-grade obstruction, likely due to the left ureteral stricture She eventually underwent diagnostic left RPG to further evaluate her left ureter al stricture and left hydronephrosis - retrograde pyelogram revealed (+) widely patent stricture and was negative for high-grade obstruction Follow up with [facility] as scheduled (6) Mild intermittent asthma without complication: Code(s): J45.20 - Mild intermittent asthma, uncomplicated Plan: Stable -? PFTs done a couple of years ago came back normal Continue Flovent HFA 220 mg 1 puff twice a day, Albuterol HFA 2 puffs 4 times a day as needed and Montelukast 10 mg 1 tablet QD (7) Allergic rhinitis: Code(s): J30.9 - Allergic rhinitis, unspecified Qualifiers: Allergic rhinitis seasonality: unspecified Allergic rhinitis trigger: unspecified Qualified Code(s): J30.9 - Allergic rhinitis, unspecified Plan: She continues to receive immunotherapy (Xolair) from her legal research analyst - to follow- up with her legal research analyst as scheduled (8) Vitamin D deficiency: Code(s): E55.9 - Vitamin D deficiency, unspecified Plan: Continue Vitamin D3 2000 units QD (9) HLA-B27 spondyloarthropathy: Code(s): M47.899 - Other spondylosis, site unspecified Plan: Reinforced activity and weight-lifting restrictions Continue Gabapentin 800 mg TID, Duloxetine 60 mg QD and Sulfasalazine 500 gm 2 tablets every 12 hours (has taken Humira in the past with poor response) Patient underwent bilateral diagnostic L3, L4, DRL5, MBB with Dr. Thomas on 05/03/2021 - she reportedly experienced significant pain relief and was then scheduled for bilateral L3 L4 DR L5 MBB RFA with sedation and flouroscopy but this was denied by her insurance Had a trial of SI joint injection with pain management in February 2023 with good results Follow-up with rheumatology and with [facility] as scheduled (10) Osteoarthritis of multiple joints: Code(s): M15.9 - Polyosteoarthritis, unspecified Qualifiers: Osteoarthritis type: unspecified Qualified Code(s): M15.9 - [place] steoarthritis, unspecified Plan: Especially involving the right hip and both hands S/P total right hip arthroplasty in August 2023 Continue Nabumetone 750 mg BID PRN Follow up with rheumatology as scheduled (11) Osteopenia: Comment: T scores 03/2023: Femur 0.4, femoral neck-0.7, LS -1.8 FRAX: 4.1/0.1 Code(s): M85.80 - Other specified disorders of bone density and structure, unspecified site Qualifiers: Osteopenia location: lumbar spine Qualified Code(s): M85.88 - Other specified disorders of bone density and structure, other site Plan: She had a BASELINE BMD done on 03/30/2023, which revealed (+) osteopenia based on the lowest T-score value of -1.8 in the lumbar spine Her FRAX score is 4.1% She is encouraged to continue daily Vitamin D and Calcium supplements and to try to exercise and stay as active as she can regularly Will continue to monitor her BMD every 2 to 3 years (12) Fibromyalgia: Code(s): M79.7 - Fibromyalgia Plan: Patient is again encouraged to try to stay active and exercise regularly to help manage her fibromyalgia symptoms better Continue Gabapentin 800 mg TID and Duloxetine 60 mg QD (13) Insomnia: Code(s): G47.00 - Insomnia, unspecified Qualifiers: Insomnia type: unspecified Qualified Code(s): G47.00 - Insomnia, unspecified Plan: Sleep hygiene reinforced Continue Zolpidem 10 mg once a day at bedtime as needed (14) Bipolar depression: Code(s): F31.9 - Bipolar disorder, unspecified Plan: Continue Clonazepam 1 mg twice a day as needed and Citalopram 10 mg once a day Follow-up with Psychiatry as scheduled - has been seeing Juan C Garcia of [facility] since 01/11/2022 (15) Obesity (BMI 30-39.9): Code(s): E66.9 - Obesity, unspecified Plan: Reinforced diet/exercise as tolerated/lose weight Plan Follow up in 4 months Orders: Orders Lipid Panel 4 Months E78.00 - Pure hypercholesterolemia, unspecified Complete Blood Count Auto Diff 4 Months D64.9 - Anemia, unspecified Comprehensive [place]. Panel Fast 4 Months E78.00 - Pure hypercholesterolemia, unspecified TSH reflex Free T4 4 Months E78.00 - Pure hypercholesterolemia, unspecified UA CC w/rflx Micro + Cult 4 Months R30.0 - Dysuria Vitamin D 25-OH Total 4 Months E55.9 - Vitamin D deficiency, unspecified Coding Level of Care Code Est Pt Level 4 (54206) Diagnoses Migraine without status migrainosus, not intractable, unspecified migraine type G43.909 Intractability: not intractable Migraine type: unspecified Status migrainosus presence: without status migrainosus Palpitations R00.2 Pure hypercholesterolemia E78.00 Renal calculi N20.0 Ureteral stricture, left N13.5 Mild intermittent asthma without complication J45.20 Allergic rhinitis, unspecified seasonality, unspecified trigger J30.9 Allergic rhinitis seasonality: unspecified Allergic rhinitis trigger: unspecified Vitamin D deficiency E55.9 HLA-B27 spondyloarthropathy M47.899 Osteoarthritis of multiple joints, unspecified osteoarthritis type M15.9 Osteoarthritis type: unspecified Osteopenia of lumbar spine M85.88 Osteopenia location: lumbar spine Fibromyalgia M79.7 Insomnia, unspecified type G47.00 Insomnia type: unspecified Bipolar depression F31.9 Obesity (BMI 30-39.9) E66.9
[2024-02-01 15:21] VITALS: BP 118/62; PULSE 66; O2SAT 100; BMI 37.7
== END 2024-02-01 15:53 | disposition home or self-care (01) ==
PROVIDERS: PCP Internal Medicine; Visit Provider Internal Medicine
DX: G43.909 Migraine, unspecified, not intractable, without status migrainosus (principal); R00.2 Palpitations; F31.9 Bipolar disorder, unspecified; E78.00 Pure hypercholesterolemia, unspecified; N20.0 Calculus of kidney; N13.5 Crossing vessel and stricture of ureter without hydronephrosis; J45.20 Mild intermittent asthma, uncomplicated; J30.9 Allergic rhinitis, unspecified; E55.9 Vitamin D deficiency, unspecified; M47.899 Other spondylosis, site unspecified; M15.9 Polyosteoarthritis, unspecified; M85.88 Other specified disorders of bone density and structure, other site
CPT/HCPCS: 99214

== ENCOUNTER 2024-02-13 11:32 | Outpatient (REF) | payer OTHER, SELFPAY ==
--- NOTE | ~2024-02-13 | XR_ITS ---
EXAMINATION: XR LUMBOSACRAL SPINE CLINICAL INFORMATION: Reason for Exam M54.9 - Dorsalgia, unspecified COMPARISON: Lumbar spine radiographs 01/06/2021 TECHNIQUE: 3 views of the lumbar spine FINDINGS: 5 nonrib-bearing lumbar-type vertebral bodies. Mild chronic loss of height at T11 and T12 again seen, similar to prior within the limitations though T11 was partially imaged. Grade 1 anterolisthesis of L4 on L5, unchanged. [id number] multilevel degenerative disc disease minimally progressed from prior worst at L5-S1 where there is loss of disc space height and facet arthropathy encroaching on the neural foramina. Surgical clips in the right upper quadrant and pelvis. XR/XR lumbar spine 2-3V IMPRESSION: 1. Yjhw-ce-inryjgli multilevel degenerative disc disease minimally progressed from prior worst at L5-S1 where there is loss of disc space height and facet arthropathy encroaching on the neural foramina. 2. Grade 1 anterolisthesis of L4 on L5, unchanged. 3. Mild chronic loss of height at T11 and T12 again seen, similar to prior within the limitations though T11 was partially imaged.
== END 2024-02-13 11:33 | disposition home or self-care (01) ==
LOC: HO.HOSX 11:32
PROVIDERS: PCP Internal Medicine; Visit Provider Physical Medicine & Rehabilitation
DX: M53.3 Sacrococcygeal disorders, not elsewhere classified (principal); M51.36 Other intervertebral disc degeneration, lumbar region; G89.29 Other chronic pain; M54.9 Dorsalgia, unspecified
CPT/HCPCS: 72100; 99202

== ENCOUNTER 2024-02-13 11:32 | Outpatient (AMB) | payer OTHER, SELFPAY ==
[2024-02-13 11:33] VITALS: BMI 37.7
--- NOTE | 2024-02-13 11:33 | MHC.OFFVIS ---
Vital Signs 02/13/24 11:33 Height 5 ft Weight 193 lb BMI 37.7 Intake Visit Reasons: Newprob-sciatic joint pain-eval Intake Note: Yanci is a 53 year old female who presents to the office today for sciatic joint pain evaluation referred by Aki .Pt had a right CHRISTEL on 08/15/23 NE. Patient reports she continues to have intermittent pain that radiates down her leg to her thigh and calf area which has been presnt for many years now. PT wanted to wait for PT until seeing Dr. Fernandes Allergies hazelnut Allergy (Severe, Verified 02/13/24 11:38) Itching, coughing, and hives Penicillins [PENICILLINS] Allergy (Severe, Verified 02/13/24 11:38) HIVES Iodinated Contrast Media [IV CONTRAST] Allergy (Intermediate, Verified 02/13/24 11:38) HIVES peanut [PEANUTS] Allergy (Intermediate, Verified 02/13/24 11:38) HIVES shellfish derived [SHELLFISH DERIVED] Allergy (Intermediate, Verified 02/13/24 11:38) HIVES almond Allergy (Mild, Verified 02/13/24 11:38) Hives cat dander Allergy (Mild, Verified 02/13/24 11:38) cough/hives dog dander Allergy (Mild, Verified 02/13/24 11:38) cough/hives pollen extracts Allergy (Mild, Verified 02/13/24 11:38) runny nose, itchy eyes birch trees Allergy (Severe, Uncoded 02/13/24 11:38) Itching Medication List - Last Reconciled 02/13/24 by Juana Anderson MD albuterol sulfate 90 mcg/actuation 2 puffs inhalation Q4-6H PRN atorvastatin 20 mg PO DAILY baclofen 20 mg PO DAILY bimatoprost 0.01% (Lumigan) 1 drp ophthalmic (eye) BEDTIME bupropion HCl XL 150 mg PO QAM cetirizine (Zyrtec) 10 mg PO DAILY PRN cholecalciferol (vitamin D3) 50 mcg PO DAILY clindamycin HCl 600 mg (2 x 300 mg) PO ONCE 1 day clonazepam (Klonopin) 1 mg PO BID cyclosporine 0.05% (Restasis) 1 drp ophthalmic (eye) Q12H docusate sodium 100 mg PO BID PRN dorzolamide-timolol 22.3-6.8 mg/mL 1 drp ophthalmic (eye) BID duloxetine (Cymbalta) 60 mg PO DAILY epinephrine 0.3 mg IM ONCE PRN famotidine 20 mg PO BEDTIME fluticasone propionate 50 mcg/actuation 1 spray intranasal DAILY PRN fluticasone propionate 220 mcg/actuation (Flovent HFA) 1 puff inhalation BID PRN gabapentin 800 mg PO BID linaclotide (Linzess) 145 mcg PO DAILY magnesium oxide 400 mg PO BEDTIME 30 days mometasone 100 mcg/actuation (Asmanex HFA) 1 puff inhalation BID PRN montelukast (Singulair) 10 mg PO BEDTIME omalizumab (Xolair) 150 mg subcut Q3W ondansetron 4 mg PO Q8H PRN pantoprazole 40 mg PO DAILY propranolol ER 60 mg PO BEDTIME 30 days riboflavin (vitamin B2) 400 mg PO DAILY 30 days [SHOWER CHAIR As directed] sumatriptan succinate 25 - 100 mg orally at onset of headache, may repeat in 2 hrs PRN; max 2 tabs per day or 4 tabs/week (may take with Ibuprofen or Tylenol) 30 days tramadol 50 mg PO BID walker Folding Front wheeled walker zolpidem (Ambien) 10 mg PO BEDTIME PRN 30 days HPI Comments Details: History of right sciatica/nerve pain, chronic, has had injections with Dr. Thomas. Had hip and SI joint injections. Was referred to Ortho for hip replacement. S/P right THR 08/15/23. She says that the pain she has now is the same pain she had prior to hip replacements, but less in severity. However she is worried that it has not gone away completely. Pain is right lower back, SI joint area, runs down to right thigh. Stops at the thigh. Does not radiate to knee or foot. Denies numbness. Denies weakness but pain stops her with prolonged walking. Had PT/rehab after surgery. History of vertebral fracture T10 and T11. No history of kyphoplasty. No lumbar surgeries. I don't think she's had lumbar epidural. [facility] Medical History Hydronephrosis, bilateral Osteopenia Renal calculi Sacroiliac joint pain Encounter for medication monitoring Palpitations Gastritis Fibromyalgia Hx of small bowel obstruction Abdominal pain Obesity (BMI 30-39.9) Bipolar depression Insomnia HLA-B27 spondyloarthropathy Osteoarthritis of multiple joints Vitamin D deficiency Migraine Allergic rhinitis Mild intermittent asthma without complication Pure hypercholesterolemia Primary osteoarthritis of right hip Lumbar spondylosis Surgical History History of total hip arthroplasty (~08/15/23) S/P cystourethroscopy with dilation of urethral stricture (~07/21/20) History of esophagogastroduodenoscopy (EGD) Hx of unilateral oophorectomy Hx of colonoscopy Hx of cholecystectomy Hx of cystoscopy History of extraction of renal calculus History of carpal tunnel surgery History of hand surgery History of hysterectomy Family History Father Kidney problem Diabetes Mother Kidney malignancy Diabetes Brother Asthma Diabetes Social History Household Members: Spouse Housing: House Are you a primary careers adviser to a significant other at home: No Do you presently have visiting nurse or other home services: Yes Unable to assess alcohol history related to: Unknown Alcohol intake: never Comment: counts correct Patient Tobacco Use Status: Never used Tobacco e-Cigarette/Vaping Use: Never Used Second Hand Smoke Exposure: No Advance Directives Date on File: 08/08/23 service: No Current occupational status: disabled Cognitive needs: No Hearing needs: No Vision needs: Yes Review of Systems Const All systems reviewed & are unremarkable except as noted in HPI and below Physical Exam Vital Signs: BMI result Body Mass Index 37.7 Constitutional: Patient appears to be in no acute distress, well nourished and well developed. Patient was appropriately conversant and oriented. Good historian. MSK: No specific abnormalities found on inspection of the spine and all extremities. No pain with palpation over the lumbar area. Right SI joint tender. Right GT nontender. Lumbar ROM was full. Straight-leg raising test negative. FABERE test negative. Strength is 5/5 in all muscle groups tested. No increased tone noted. Neurological: Neurologic examination of the upper and lower extremities was nonfocal with intact sensation, muscle stretch reflexes and without focal motor deficits . Babinski was down going bilaterally. Clonus was negative. Gait is non-antalgic without loss of balance. Results Reviewed Results Reviewed: Ordering Physician: Nathalia Barber MD Date of Service: 01/06/21 Procedure(s): XR lumbar spine 2-3V Accession Number(s): [id number] cc: Nathalia Barber MD~ EXAMINATION: XR LUMBOSACRAL SPINE CLINICAL INFORMATION: Low back pain. COMPARISON: CT scan of the abdomen and pelvis dated 12/27/2020. TECHNIQUE: Three views of the lumbosacral spine. FINDINGS: Mild multilevel degenerative disc disease is seen. There is a grade 1 anterolisthesis of L4 over L5. Mild to moderate bilateral facet arthropathy seen at L4-5 and L5-S1. Mild anterior compression deformities are seen from T10 to T12. The soft tissues are unremarkable. XR/XR lumbar spine 2-3V IMPRESSION: 1. Mild multilevel degenerative changes and L4-5 grade 1 anterolisthesis is similar to the CT scan. No acute abnormality. 2. Mild superior endplate compression deformities from T10 to T12 do not demonstrate acute features. Ordering Physician: Simone Zepeda MD Date of Service: 11/12/23 Procedure(s): XR pelvis 1-2V Accession Number(s): [id number] cc: Simone Zepeda MD~ EXAMINATION: XR PELVIS CLINICAL INFORMATION: Hip pain COMPARISON: 08/15/2023 TECHNIQUE: AP view of the pelvis. FINDINGS: AP view of the pelvis demonstrates right hip arthroplasty without evidence of hardware complication. Dislocation cannot be excluded on this single AP view. Pelvic surgical clips are noted. Mild degenerative changes of the left hip joint are partially visualized. XR/XR pelvis 1-2V IMPRESSION: AP view of the pelvis demonstrates right hip arthroplasty without evidence of hardware complication. Dislocation cannot be excluded on this single AP view. I reviewed records from the following: Ortho Pain management Assessment & Plan Assessment & Plan (1) Chronic right sacroiliac joint pain: Code(s): M53.3 - Sacrococcygeal disorders, not elsewhere classified; G89.29 - Other chronic pain Category: Medical (2) Lumbar degenerative disc disease: Code(s): M51.36 - Other intervertebral disc degeneration, lumbar region Category: Medical Plan Suspect pain is coming from right SI joint. We may have to refer her back to pain management for further injections. We may consider trigger point injections here as well. Lower suspicion for right L5-S1 disc herniation, suspicious lower because she does not have any numbness or radicular pain to L5-S1 distribution. We will obtain lumbar x-rays today. Patient had undergone adequate conservative management including PT and hip replacement surgery and injections without improvement of condition. It would be reasonable to obtain further imaging such as MRI. An MRI would help rule out any serious condition, guide treatment and assess prognosis for recovery. Specifically ruling out right L5-S1 disc herniation. Assessment and plan discussed with patient, and patient was agreeable. All questions were answered thoroughly. Follow up after MRI. Juana Anderson MD, VINAY Board Certified, [place] [employer] and [employer] (ABPMR) Board Certified, [place] [employer] of Electrodiagnostic Medicine (ABEM) Orders: Orders MR lumbar spine wo con Today G89.29 - Other chronic pain, M51.36 - Other intervertebral disc degeneration, lumbar region, M53.3 - Sacrococcygeal disorders, not elsewhere classified XR lumbar spine 2-3V Today G89.29 - Other chronic pain, M51.36 - Other intervertebral disc degeneration, lumbar region, M53.3 - Sacrococcygeal disorders, not elsewhere classified, M54.9 - Dorsalgia, unspecified Coding Level of Care Code New Pt Level 4 (42403) Diagnoses Chronic right sacroiliac joint pain M53.3; G89.29 Lumbar degenerative disc disease M51.36
== END 2024-02-13 15:27 | disposition home or self-care (01) ==
PROVIDERS: PCP Internal Medicine; Visit Provider Physical Medicine & Rehabilitation
DX: M53.3 Sacrococcygeal disorders, not elsewhere classified (principal); G89.29 Other chronic pain; M51.36 Other intervertebral disc degeneration, lumbar region
CPT/HCPCS: 99203

== ENCOUNTER 2024-03-07 14:41 | Outpatient (REF) | payer OTHER, SELFPAY ==
--- NOTE | ~2024-03-07 | MM_ITS ---
EXAMINATION: MM SCREENING DIGITAL BREAST TOMOSYNTHESIS, BILATERAL CLINICAL INFORMATION: Screening. Asymptomatic. COMPARISON: Mammography: This study is compared with prior exams dating back to 2018. TECHNIQUE: Digital breast tomosynthesis is performed in both the craniocaudal and mediolateral oblique views along with computer-aided detection (CAD). Synthesized 2D images are generated from the tomosynthesis. FINDINGS: The breasts are almost entirely fatty (ACR BI-RADS breast composition Category a). There are no significant masses, abnormal calcifications, or other abnormalities. MM/MM tomosynthesis screening BI IMPRESSION: No mammographic evidence of malignancy. ASSESSMENT: BI-RADS BI-RADS 1 - Negative RECOMMENDATION: Routine annual mammography screening. 1 year F/U This examination should not preclude the clinical evaluation of a suspicious palpable abnormality. This patient's information was entered into a reminder system with a target due date for their next mammogram. Electronically signed by: Shira Shirley MD 04/07/2024 11:51 PM EDT
== END 2024-03-07 14:42 | disposition home or self-care (01) ==
LOC: HO.MAMMO 14:41
PROVIDERS: PCP Internal Medicine; Visit Provider Internal Medicine
DX: Z12.31 Encounter for screening mammogram for malignant neoplasm of breast (principal)
CPT/HCPCS: 77063; 77067

== ENCOUNTER → 2024-03-07 15:00 | Outpatient (BNV) | payer OTHER, SELFPAY | PROVIDERS: PCP Internal Medicine; Visit Provider Radiology Diagnostic Radiology | DX: Z12.31 Encounter for screening mammogram for malignant neoplasm of breast (principal) | CPT/HCPCS: 77063; 77067 ==

== ENCOUNTER → 2024-03-13 13:46 | Outpatient (REF) | payer OTHER, SELFPAY | LOC: HO.SL 13:46 | PROVIDERS: Visit Provider Nurse Practitioner Family | DX: G47.9 Sleep disorder, unspecified (principal); R53.83 Other fatigue; R06.83 Snoring | CPT/HCPCS: 95806 ==

== ENCOUNTER → 2024-03-14 14:01 | Outpatient (BNV) | payer OTHER, SELFPAY | PROVIDERS: Visit Provider Psychiatry & Neurology Neurology | DX: R06.83 Snoring (principal) | CPT/HCPCS: 95806 ==

== ENCOUNTER 2024-03-14 15:38 | Outpatient (AMB) | payer OTHER, SELFPAY ==
[2024-03-14 15:43] VITALS: BP 141/69; PULSE 68; BMI 37.7
--- NOTE | 2024-03-14 15:43 | A.OFFVIS_ITS ---
Vital Signs 03/14/24 15:43 Height 5 ft Weight 193 lb 1.999 oz BMI 37.7 BP 141/69 H Blood Pressure Location Lt brachial Position Sitting Pulse 68 Intake Visit Reasons: 2 month follow up Intake Note: Yanci presents to in office visit today in 2 months follow up of constipation. CC: Patient reports that she had to d/c the Linzess because she had bad diarrhea. She reports constipation alternating with diarrhea, occasional abdominal pain. Customer Support Specialist Required: No Accompanied by: Self / Same As Patient Allergies hazelnut Allergy (Severe, Verified 03/14/24 15:47) Itching, coughing, and hives Penicillins [PENICILLINS] Allergy (Severe, Verified 03/14/24 15:47) HIVES Iodinated Contrast Media [IV CONTRAST] Allergy (Intermediate, Verified 03/14/24 15:47) HIVES peanut [PEANUTS] Allergy (Intermediate, Verified 03/14/24 15:47) HIVES shellfish derived [SHELLFISH DERIVED] Allergy (Intermediate, Verified 03/14/24 15:47) HIVES almond Allergy (Mild, Verified 03/14/24 15:47) Hives cat dander Allergy (Mild, Verified 03/14/24 15:47) cough/hives dog dander Allergy (Mild, Verified 03/14/24 15:47) cough/hives pollen extracts Allergy (Mild, Verified 03/14/24 15:47) runny nose, itchy eyes birch trees Allergy (Severe, Uncoded 02/13/24 11:38) Itching HPI HPI 2 month follow up: Details: LAST VISIT Constipation IBS (irritable bowel syndrome) GERD (gastroesophageal reflux disease) Postprandial abdominal bloating Nausea and vomiting in adult Plan Will order Linzess for patient. Patient was encouraged to try at least for 2 weeks even though she might get diarrhea initially. Patient is to call the office if she will have severe abdominal cramping and no BM for 2-3 days after starting Linzess. Increase fluid intake and activity to promote better bowel motility. Continue PPI. Script for Zofran given. Avoid eating large meals. Patient was encouraged to eat more vegetables. Discussed with patient about possibility to go for colonoscopy to see if Dr. Bell can dilate her bowel. Other option would be to send her for surgical consult with Dr. Sam for removal of adhesions. Patient will follow-up in the office in 2 months, sooner on as needed basis. She is agreeable to this plan and verbalizes understanding of instructions. She was given the opportunity to ask questions and all questions answered. Medications New ondansetron 4 mg PO Q8H PRN 20 tabs 0RF Nausea linaclotide (Linzess) 145 mcg PO DAILY 30 caps 2RF TODAY'S VISIT: Patient is here today for follow-up. Patient reports that she was unable to tolerate Linzess. Diarrhea was very frequent and she was unable to tolerated. Currently patient is taking [id number] medications and occasional fiber. Occasional loose stools and then constipation. Patient is trying to avoid certain dietary triggers. Feels like she is definitely less bloating depending on what she eats. Patient reports occasional nausea, specially in the morning, no vomiting. Patient denies dyspepsia, dysphagia or odynophagia. Denies melena, hematochezia, unintentional weight loss or ribbon like stools. Patient continues to feel apprehensive about going for colonoscopy due to her last experience. [facility] Medical History Hydronephrosis, bilateral Osteopenia Renal calculi Sacroiliac joint pain Encounter for medication monitoring Palpitations Gastritis Fibromyalgia Hx of small bowel obstruction Abdominal pain Obesity (BMI 30-39.9) Bipolar depression Insomnia HLA-B27 spondyloarthropathy Osteoarthritis of multiple joints Vitamin D deficiency Migraine Allergic rhinitis Mild intermittent asthma without complication Pure hypercholesterolemia Primary osteoarthritis of right hip Lumbar spondylosis Surgical History History of total hip arthroplasty (~08/15/23) S/P cystourethroscopy with dilation of urethral stricture (~07/21/20) History of esophagogastroduodenoscopy (EGD) Hx of unilateral oophorectomy Hx of colonoscopy Hx of cholecystectomy Hx of cystoscopy History of extraction of renal calculus History of carpal tunnel surgery History of hand surgery History of hysterectomy Family History Father Kidney problem Diabetes Mother Kidney malignancy Diabetes Brother Asthma Diabetes Social History Household Members: Spouse Housing: House Are you a primary healthcare business analyst to a significant other at home: No Do you presently have visiting nurse or other home services: Yes Unable to assess alcohol history related to: Unknown Alcohol intake: never Comment: counts correct Patient Tobacco Use Status: Never used Tobacco e-Cigarette/Vaping Use: Never Used Second Hand Smoke Exposure: No Advance Directives Date on File: 08/08/23 service: No Current occupational status: disabled Cognitive needs: No Hearing needs: No Vision needs: Yes Review of Systems Const Denies weight gain and Denies weight loss ENT Reports no additional complaints, Denies dysphagia and Denies odynophagia Card Reports no additional complaints Resp Reports no additional complaints GI Reports abdominal pain (Occasional, LLQ), Denies belching, Denies melena, Reports bloating (Occasional), Reports constipation, Denies dysphagia, Denies excessive flatus, Denies dyspepsia, Denies heartburn, Denies diarrhea, Reports loose stools, Denies nausea, Denies odynophagia and Denies vomiting Reports no additional complaints Musc Reports no additional complaints Neuro Reports no additional complaints Psych Reports no additional complaints Endo Reports no additional complaints Physical Exam Vital Signs: Last Vital Signs Pulse 68 03/14/24 15:43 BP 141/69 H 03/14/24 15:43 BMI result Body Mass Index 37.7 Const General: healthy appearing and no acute distress Nutritional Appearance: obese Orientation/consciousness: patient oriented x3 Resp Effort & Inspection: normal respiratory effort, able to speak in complete sentences, no tracheal deviation and symmetric chest movement Auscultation: clear to auscultation bilaterally Cardio Rate: regular rate GI Inspection: Yes normal to inspection, No distended and Yes obesity Palpation (GI): Soft to palpation, not firm, nontender and No hepatosplenomegaly present Auscultation: normal bowel sounds General: Yes no CVA tenderness Back/Spine/Pelvis Back: no CVA tenderness Skin General skin exam: elasticity normal, turgor normal and dry skin Neuro General: patient oriented x3 Psych Appearance: grossly normal Mental Status: mental status grossly normal Affect: normal affect Assessment & Plan Assessment & Plan (1) Constipation: Code(s): K59.00 - Constipation, unspecified Qualifiers: Constipation type: slow transit constipation Qualified Code(s): K59.01 - Slow transit constipation (2) IBS (irritable bowel syndrome): Code(s): K58.9 - Irritable bowel syndrome without diarrhea Qualifiers: Irritable bowel syndrome type: with both diarrhea and constipation Qualified Code(s): K58.2 - Mixed irritable bowel syndrome (3) GERD (gastroesophageal reflux disease): Code(s): K21.9 - Gastro-esophageal reflux disease without esophagitis Qualifiers: Esophagitis presence: without esophagitis Qualified Code(s): K21.9 - Gastro-esophageal reflux disease without esophagitis (4) Postprandial abdominal bloating: Code(s): R14.0 - Abdominal distension (gaseous) (5) Nausea and vomiting in adult: Code(s): R11.2 - Nausea with vomiting, unspecified (6) Diarrhea: Code(s): R19.7 - Diarrhea, unspecified Qualifiers: Diarrhea type: unspecified type Qualified Code(s): R19.7 - Diarrhea, unspecified Plan Patient reports more frequent diarrhea will do GI panel. Patient will increase fiber intake. Continue magnesium at bedtime. Continue pantoprazole in the morning and famotidine at bedtime. Avoid dietary triggers and late night snacking. FODMAP diet encouraged again. Staying upright for minimum 3 hours after meals discussed with patient. Patient will return in 2 months, sooner on as needed basis. She is agreeable to this plan and verbalizes understanding of instructions. She was given the opportunity to ask questions and all questions answered. Thank you for allowing me to participate in her care Orders: Orders GI Panel 03/14/24 R19.7 - Diarrhea, unspecified Medications: Discontinued linaclotide Discontinued Reason: Patient no longer taking 145 mcg PO DAILY 30 caps 2RF Coding Level of Care Code Est Pt Level 3 (62836) Diagnoses Slow transit constipation K59.01 Constipation type: slow transit constipation Irritable bowel syndrome with both constipation and diarrhea K58.2 Irritable bowel syndrome type: with both diarrhea and constipation Gastroesophageal reflux disease without esophagitis K21.9 Esophagitis presence: without esophagitis Postprandial abdominal bloating R14.0 Nausea and vomiting in adult R11.2 Diarrhea, unspecified type R19.7 Diarrhea type: unspecified type Time Spent (min) 30 Comment 20 minutes spent with patient and additional 10 minutes spent reviewing her records
== END 2024-03-14 16:33 | disposition home or self-care (01) ==
PROVIDERS: PCP Internal Medicine; Visit Provider Nurse Practitioner Family
DX: K59.01 Slow transit constipation (principal); K58.2 Mixed irritable bowel syndrome; K21.9 Gastro-esophageal reflux disease without esophagitis; R14.0 Abdominal distension (gaseous); R11.2 Nausea with vomiting, unspecified; R19.7 Diarrhea, unspecified
CPT/HCPCS: 99213

== ENCOUNTER → 2024-03-14 15:38 | Outpatient (BNVA) | payer OTHER, SELFPAY | PROVIDERS: PCP Internal Medicine; Visit Provider Nurse Practitioner Family | DX: K58.1 Irritable bowel syndrome with constipation (principal); K58.0 Irritable bowel syndrome with diarrhea; R10.9 Unspecified abdominal pain | CPT/HCPCS: 99212 ==

== ENCOUNTER 2024-04-10 14:36 | Outpatient (REF) | payer OTHER, SELFPAY ==
--- NOTE | ~2024-04-10 | MR_ITS ---
EXAMINATION: MR LUMBAR SPINE WITHOUT CONTRAST CLINICAL INFORMATION: 54-year-old with sacrococcygeal disorders, not elsewhere classified. Evaluate for right L5-S1 stenosis or disc herniation. Self-reported low back pain and right leg pain. COMPARISON: None available. TECHNIQUE: MRI of the lumbar spine was obtained using routine sequences without contrast. FINDINGS: CORONAL ALIGNMENT: Normal. SAGITTAL ALIGNMENT: There is 4 mm of grade 1 degenerative spondylolisthesis at L4-L5 without spondylolysis. The remainder of the lumbar spine is anatomically aligned. LUMBOSACRAL JUNCTION: Normal. There are 5 jto-wim-kqmprwf lumbar-type vertebral bodies. VERTEBRAL BODIES: There is soxc-gn-meepblhj anterior wedging of the L1 vertebral body which appears chronic and healed. There is slight anterior wedging of T12 which appears chronic and healed and there is moderate anterior wedging of T11, also chronic and healed. Otherwise vertebral body heights are well maintained. No significant retropulsion. DISC SPACES AND ENDPLATES: There are mild degrees of disc volume loss at L3-L4, L4-L5 and L5-S1 with mild degrees of loss of intradiscal T2-weighted signal at these levels with central Schmorl's nodes at the levels between L1-L2 and L3-L4 inclusive, with uduo-xx-jsaudfdt degrees of anterolateral spondylosis throughout the lumbar spine. There is nqgw-wg-ckohbqxd disc volume loss at L1-L2. There are central Schmorl's nodes at T12-L1 with moderate anterior marginal spondylosis asymmetric to the right. Cdobtmrb-vi-tolafd disc volume loss at T11-T12 with disc desiccation, Schmorl's nodes and moderate spondylosis. Central Schmorl's nodes, disc desiccation, dhfg-st-yxsyovup volume loss and mild spondylosis at T10-T11. SPINAL CANAL: No abnormal developmental findings. BONE MARROW: No suspicious marrow-replacing process or bone marrow edema. CONUS MEDULLARIS: Terminates at L1. Morphology and signal is normal. INTRADURAL NERVE ROOTS: Within normal limits. L5-S1: There is concentric disc bulging with superimposed broad-based central extruded disc herniation with mild caudal migration encroaching on the ventral epidural fat without S1 nerve root impingement or thecal sac encroachment. There is gwcf-bu-eeyrljvj bilateral facet joint arthropathy without significant canal stenosis. There is wnpd-ud-wzoepeud left-sided and moderate right-sided foraminal stenosis, with a superimposed right foraminal disc herniation impinging on the exiting right L5 nerve root. L4-L5: Unroofing of the posterior disc margin is noted consistent with grade 1 spondylolisthesis. There is pseudodisc bulging with a superimposed left-sided foraminal/extraforaminal disc protrusion. There is qqpc-so-aezuguaf flattening of the ventral dural sac and there is ligamentum flavum thickening with uyxlmxgs-dp-faggjo bilateral facet joint arthrosis. Mild central canal narrowing is noted and there is moderate bilateral lateral recess stenosis slightly encroaching on the traversing L5 nerve roots. Nrjl-eh-fbmjxkrb right and moderate left-sided foraminal stenosis is noted with disc herniation impinging on the left L4 nerve root. L3-L4: There is concentric disc bulging, with slight flattening of the ventral dural sac. There is xpxj-qv-llxftwsd bilateral facet joint arthrosis without significant canal stenosis. There is mild foraminal narrowing bilaterally without neural impingement. L2-L3: Shallow broad-based central to right central disc protrusion with mild indentation of the ventral thecal sac. Minor right-sided facet joint arthropathy noted. No significant canal or neural foraminal stenosis. L1-L2: Concentric disc bulging is noted, with superimposed central disc protrusion and flattening of the ventral dural sac. No significant facet joint arthrosis, canal or neural foraminal stenosis. On sagittal and axial T1 views, there is broad-based central extruded disc herniation at T11-T12 with slight caudal migration without cord impingement. There is mild ventral cord deformity at this level, which is likely chronic. There is ukmx-fo-znjivvir canal stenosis at this level and there is facet joint arthrosis bilaterally with mild bilateral foraminal narrowing. Probable right posterolateral disc osteophyte complex as well abuts the extraforaminal right T11 nerve root. PARAVERTEBRAL AND INCLUDED EXTRASPINAL SOFT TISSUES: The paravertebral soft tissues appear grossly unremarkable. Incidental note is made of left-sided hydroureteronephrosis, which is incompletely imaged. There is also some fullness of the right renal collecting system and suspicion for a 1.4 cm simple-appearing cortical cyst medial cortex lower pole right kidney. These findings are similar to the CT abdomen of 08/27/2023. MR/MR lumbar spine wo con IMPRESSION: 1. Grade 1 degenerative spondylolisthesis at L4-L5. 2. Multilevel DDD and spondylosis, with multilevel disc bulging and disc herniations as detailed by level above, with mild central canal stenosis at L4-L5 and moderate bilateral lateral recess stenosis at this level. 3. Multilevel bilateral facet joint arthropathy, most apparent at L4-5 and L5-S1 with multilevel bilateral foraminal stenosis, most apparent on the right at L5-S1 with right L5 nerve root impingement and on the left at L4-L5 with left L4 nerve root impingement. 4. Tkps-di-udqivokc canal stenosis at T11-T12 with a broad-based central extruded disc herniation at this level without cord impingement. Right posterolateral disc osteophyte complex at T11-T12 abuts the extraforaminal right T11 nerve root. 5. Chronic, healed compression fractures of T11, T12 and L1. 6. Significant left-sided hydroureteronephrosis, which is incompletely imaged. This finding was noted on previous CT of the abdomen of 08/27/2023 and appears similar. Electronically signed by: Benedict Shepard MD 04/28/2024 04:43 PM EDT
== END 2024-04-10 14:37 | disposition home or self-care (01) ==
LOC: HO.MRI 14:36
PROVIDERS: PCP Internal Medicine; Visit Provider Physical Medicine & Rehabilitation
DX: M53.3 Sacrococcygeal disorders, not elsewhere classified (principal); G89.29 Other chronic pain; M51.36 Other intervertebral disc degeneration, lumbar region
CPT/HCPCS: 72148

== ENCOUNTER 2024-05-07 11:29 | Outpatient (AMB) | payer OTHER, SELFPAY ==
--- NOTE | 2024-05-07 11:44 | A.OFFVIS_ITS ---
Intake Visit Reasons: OV- MRI review Intake Note: Yanci is a 54 year old female who presents today for a MRI review of her lumbar spine. Patient still is having pain, however she mentions that it feels slightly better. Allergies hazelnut Allergy (Severe, Verified 05/07/24 11:51) Itching, coughing, and hives Penicillins [PENICILLINS] Allergy (Severe, Verified 05/07/24 11:51) HIVES Iodinated Contrast Media [IV CONTRAST] Allergy (Intermediate, Verified 05/07/24 11:51) HIVES peanut [PEANUTS] Allergy (Intermediate, Verified 05/07/24 11:51) HIVES shellfish derived [SHELLFISH DERIVED] Allergy (Intermediate, Verified 05/07/24 11:51) HIVES almond Allergy (Mild, Verified 05/07/24 11:51) Hives cat dander Allergy (Mild, Verified 05/07/24 11:51) cough/hives dog dander Allergy (Mild, Verified 05/07/24 11:51) cough/hives pollen extracts Allergy (Mild, Verified 05/07/24 11:51) runny nose, itchy eyes birch trees Allergy (Severe, Uncoded 02/13/24 11:38) Itching HPI Comments Details: History of right sciatica/nerve pain, chronic, has had injections with Dr. Thomas. Had hip and SI joint injections. Was referred to Ortho for hip replacement. S/P right THR 08/15/23. She says that the pain she has now is the same pain she had prior to hip replacements, but less in severity. However she is worried that it has not gone away completely. Pain is right lower back, SI joint area, runs down to right thigh. Stops at the thigh. Does not radiate to knee or foot. Denies numbness. Denies weakness but pain stops her with prolonged walking. Had PT/rehab after surgery. History of vertebral fracture T10 and T11. No history of kyphoplasty. No lumbar surgeries. I don't think she's had lumbar epidural. Lumbar MRIs showed chronic compression healed fractures T11/12/L1. Patient tells me that she is aware of such previous fractures. MRI also showed spondylosis with foraminal stenosis right L5-S1 on left upper 5. [facility] Medical History Hydronephrosis, bilateral Osteopenia Renal calculi Sacroiliac joint pain Encounter for medication monitoring Palpitations Gastritis Fibromyalgia Hx of small bowel obstruction Abdominal pain Obesity (BMI 30-39.9) Bipolar depression Insomnia HLA-B27 spondyloarthropathy Osteoarthritis of multiple joints Vitamin D deficiency Migraine Allergic rhinitis Mild intermittent asthma without complication Pure hypercholesterolemia Primary osteoarthritis of right hip Lumbar spondylosis Surgical History History of total hip arthroplasty (~08/15/23) S/P cystourethroscopy with dilation of urethral stricture (~07/21/20) History of esophagogastroduodenoscopy (EGD) Hx of unilateral oophorectomy Hx of colonoscopy Hx of cholecystectomy Hx of cystoscopy History of extraction of renal calculus History of carpal tunnel surgery History of hand surgery History of hysterectomy Family History Father Kidney problem Diabetes Mother Kidney malignancy Diabetes Brother Asthma Diabetes Social History Household Members: Spouse Housing: House Are you a primary child care center assistant director to a significant other at home: No Do you presently have visiting nurse or other home services: Yes Unable to assess alcohol history related to: Unknown Alcohol intake: never Comment: counts correct Patient Tobacco Use Status: Never used Tobacco e-Cigarette/Vaping Use: Never Used Second Hand Smoke Exposure: No Advance Directives Date on File: 08/08/23 service: No Current occupational status: disabled Cognitive needs: No Hearing needs: No Vision needs: Yes Physical Exam Constitutional: Patient appears to be in no acute distress, well nourished and well developed. Patient was appropriately conversant and oriented. Good historian. MSK: No specific abnormalities found on inspection of the spine and all extremities. No pain with palpation over the lumbar area. Right SI joint tender. Right GT nontender. Lumbar ROM was full. Straight-leg raising test negative. FABERE test negative. Strength is 5/5 in all muscle groups tested. No increased tone noted. Neurological: Neurologic examination of the upper and lower extremities was nonfocal with intact sensation, muscle stretch reflexes and without focal motor deficits . Babinski was down going bilaterally. Clonus was negative. Gait is non-antalgic without loss of balance. Results Reviewed Results Reviewed: Ordering Physician: Juana Fernandes Date of Service: 04/10/24 Procedure(s): MR lumbar spine wo con Accession Number(s): [id number] cc: Christ Goodwin MD; Juana Fernandes~ EXAMINATION: MR LUMBAR SPINE WITHOUT CONTRAST CLINICAL INFORMATION: 54-year-old with sacrococcygeal disorders, not elsewhere classified. Evaluate for right L5-S1 stenosis or disc herniation. Self-reported low back pain and right leg pain. COMPARISON: None available. TECHNIQUE: MRI of the lumbar spine was obtained using routine sequences without contrast. FINDINGS: CORONAL ALIGNMENT: Normal. SAGITTAL ALIGNMENT: There is 4 mm of grade 1 degenerative spondylolisthesis at L4-L5 without spondylolysis. The remainder of the lumbar spine is anatomically aligned. LUMBOSACRAL JUNCTION: Normal. There are 5 wla-lnh-ycttrlh lumbar-type vertebral bodies. VERTEBRAL BODIES: There is ahog-rw-lgsmihev anterior wedging of the L1 vertebral body which appears chronic and healed. There is slight anterior wedging of T12 which appears chronic and healed and there is moderate anterior wedging of T11, also chronic and healed. Otherwise vertebral body heights are well maintained. No significant retropulsion. DISC SPACES AND ENDPLATES: There are mild degrees of disc volume loss at L3-L4, L4-L5 and L5-S1 with mild degrees of loss of intradiscal T2-weighted signal at these levels with central Schmorl's nodes at the levels between L1-L2 and L3-L4 inclusive, with sefy-yw-ngzoyrai degrees of anterolateral spondylosis throughout the lumbar spine. There is euac-ci-nzpazotm disc volume loss at L1-L2. There are central Schmorl's nodes at T12-L1 with moderate anterior marginal spondylosis asymmetric to the right. Bouzstxq-za-kgnumm disc volume loss at T11-T12 with disc desiccation, Schmorl's nodes and moderate spondylosis. Central Schmorl's nodes, disc desiccation, orsu-hc-bcdilfdz volume loss and mild spondylosis at T10-T11. SPINAL CANAL: No abnormal developmental findings. BONE MARROW: No suspicious marrow-replacing process or bone marrow edema. CONUS MEDULLARIS: Terminates at L1. Morphology and signal is normal. INTRADURAL NERVE ROOTS: Within normal limits. L5-S1: There is concentric disc bulging with superimposed broad-based central extruded disc herniation with mild caudal migration encroaching on the ventral epidural fat without S1 nerve root impingement or thecal sac encroachment. There is bofa-zu-avghirja bilateral facet joint arthropathy without significant canal stenosis. There is txnd-wd-qjnypybb left-sided and moderate right-sided foraminal stenosis, with a superimposed right foraminal disc herniation impinging on the exiting right L5 nerve root. L4-L5: Unroofing of the posterior disc margin is noted consistent with grade 1 spondylolisthesis. There is pseudodisc bulging with a superimposed left-sided foraminal/extraforaminal disc protrusion. There is wual-hw-ahhcscws flattening of the ventral dural sac and there is ligamentum flavum thickening with ewvtynes-sn-tybdog bilateral facet joint arthrosis. Mild central canal narrowing is noted and there is moderate bilateral lateral recess stenosis slightly encroaching on the traversing L5 nerve roots. Misk-go-ywwbkpwy right and moderate left-sided foraminal stenosis is noted with disc herniation impinging on the left L4 nerve root. L3-L4: There is concentric disc bulging, with slight flattening of the ventral dural sac. There is ecnm-to-wbjykovg bilateral facet joint arthrosis without significant canal stenosis. There is mild foraminal narrowing bilaterally without neural impingement. L2-L3: Shallow broad-based central to right central disc protrusion with mild indentation of the ventral thecal sac. Minor right-sided facet joint arthropathy noted. No significant canal or neural foraminal stenosis. L1-L2: Concentric disc bulging is noted, with superimposed central disc protrusion and flattening of the ventral dural sac. No significant facet joint arthrosis, canal or neural foraminal stenosis. On sagittal and axial T1 views, there is broad-based central extruded disc herniation at T11-T12 with slight caudal migration without cord impingement. There is mild ventral cord deformity at this level, which is likely chronic. There is kwzs-ce-zpsbdbzt canal stenosis at this level and there is facet joint arthrosis bilaterally with mild bilateral foraminal narrowing. Probable right posterolateral disc osteophyte complex as well abuts the extraforaminal right T11 nerve root. PARAVERTEBRAL AND INCLUDED EXTRASPINAL SOFT TISSUES: The paravertebral soft tissues appear grossly unremarkable. Incidental note is made of left-sided hydroureteronephrosis, which is incompletely imaged. There is also some fullness of the right renal collecting system and suspicion for a 1.4 cm simple-appearing cortical cyst medial cortex lower pole right kidney. These findings are similar to the CT abdomen of 08/27/2023. MR/MR lumbar spine wo con IMPRESSION: 1. Grade 1 degenerative spondylolisthesis at L4-L5. 2. Multilevel DDD and spondylosis, with multilevel disc bulging and disc herniations as detailed by level above, with mild central canal stenosis at L4-L5 and moderate bilateral lateral recess stenosis at this level. 3. Multilevel bilateral facet joint arthropathy, most apparent at L4-5 and L5-S1 with multilevel bilateral foraminal stenosis, most apparent on the right at L5-S1 with right L5 nerve root impingement and on the left at L4-L5 with left L4 nerve root impingement. 4. Lcho-az-mydymfpn canal stenosis at T11-T12 with a broad-based central extruded disc herniation at this level without cord impingement. Right posterolateral disc osteophyte complex at T11-T12 abuts the extraforaminal right T11 nerve root. 5. Chronic, healed compression fractures of T11, T12 and L1. 6. Significant left-sided hydroureteronephrosis, which is incompletely imaged. This finding was noted on previous CT of the abdomen of 08/27/2023 and appears similar. Electronically signed by: Benedict Shepard MD 04/28/2024 04:43 PM EDT RP Ordering Physician: Nathalia Barber MD Date of Service: 01/06/21 Procedure(s): XR lumbar spine 2-3V Accession Number(s): [id number] cc: Nathalia Barber MD~ EXAMINATION: XR LUMBOSACRAL SPINE CLINICAL INFORMATION: Low back pain. COMPARISON: CT scan of the abdomen and pelvis dated 12/27/2020. TECHNIQUE: Three views of the lumbosacral spine. FINDINGS: Mild multilevel degenerative disc disease is seen. There is a grade 1 anterolisthesis of L4 over L5. Mild to moderate bilateral facet arthropathy seen at L4-5 and L5-S1. Mild anterior compression deformities are seen from T10 to T12. The soft tissues are unremarkable. XR/XR lumbar spine 2-3V IMPRESSION: 1. Mild multilevel degenerative changes and L4-5 grade 1 anterolisthesis is similar to the CT scan. No acute abnormality. 2. Mild superior endplate compression deformities from T10 to T12 do not demonstrate acute features. Ordering Physician: Simone Zepeda MD Date of Service: 11/12/23 Procedure(s): XR pelvis 1-2V Accession Number(s): [id number] cc: Simnoe Zepeda MD~ EXAMINATION: XR PELVIS CLINICAL INFORMATION: Hip pain COMPARISON: 08/15/2023 TECHNIQUE: AP view of the pelvis. FINDINGS: AP view of the pelvis demonstrates right hip arthroplasty without evidence of hardware complication. Dislocation cannot be excluded on this single AP view. Pelvic surgical clips are noted. Mild degenerative changes of the left hip joint are partially visualized. XR/XR pelvis 1-2V IMPRESSION: AP view of the pelvis demonstrates right hip arthroplasty without evidence of hardware complication. Dislocation cannot be excluded on this single AP view. I reviewed records from the following: Ortho Pain management Assessment & Plan Assessment & Plan (1) Chronic right sacroiliac joint pain: Code(s): M53.3 - Sacrococcygeal disorders, not elsewhere classified; G89.29 - Other chronic pain Category: Medical (2) Lumbar degenerative disc disease: Code(s): M51.36 - Other intervertebral disc degeneration, lumbar region Category: Medical Qualifiers: Disc-related pain type: discogenic back pain and lower extremity pain Qualified Code(s): M51.362 - Other intervertebral disc degeneration, lumbar region with discogenic back pain and lower extremity pain Plan Chronic recurrent lumbopelvic pain the combination of lumbar degenerative disc and SI joint dysfunction. We may have to refer her back to pain management for further injections. New referral to pain management will be placed but patient also to contact them. Assessment and plan discussed with patient, and patient was agreeable. All questions were answered thoroughly. Juana Anderson MD, VINAY Board Certified, [place] [employer] and Rehabilitation (ABPMR) Board Certified, [place] [employer] Electro[employer] (ABEM) Orders: Referrals Pain Management Referral M51.362 - Other intervertebral disc degeneration, lumbar region with discogenic back pain and lower extremity pain Coding Level of Care Code Est Pt Level 4 (79780) Diagnoses Chronic right sacroiliac joint pain M53.3; G89.29 Degeneration of intervertebral disc of lumbar region with discogenic back pain and lower extremity pain M51.362 Disc-related pain type: discogenic back pain and lower extremity pain
== END 2024-05-07 14:54 | disposition home or self-care (01) ==
PROVIDERS: PCP Internal Medicine; Visit Provider Physical Medicine & Rehabilitation
DX: M53.3 Sacrococcygeal disorders, not elsewhere classified (principal); M51.362 Other intervertebral disc degeneration, lumbar region with discogenic back pain and lower extremity pain
CPT/HCPCS: 99214

== ENCOUNTER → 2024-05-07 11:29 | Outpatient (BNVA) | payer OTHER, SELFPAY | PROVIDERS: PCP Internal Medicine; Visit Provider Physical Medicine & Rehabilitation | DX: M53.3 Sacrococcygeal disorders, not elsewhere classified (principal); M51.362 Other intervertebral disc degeneration, lumbar region with discogenic back pain and lower extremity pain; G89.29 Other chronic pain | CPT/HCPCS: 99212 ==

== ENCOUNTER 2024-05-15 14:06 | Outpatient (AMB) | payer OTHER, SELFPAY ==
--- NOTE | 2024-05-15 14:19 | MHC.OFFVIS ---
Vital Signs 05/15/24 14:37 Height 5 ft Weight 194 lb 6 oz BMI 38.0 BP 148/83 H Blood Pressure Location Lt brachial Position Sitting Respiration 16 Pulse 71 Pulse Source Pulse Oximeter Pulse Oximetry (%) 96 Oxygen Delivery Method Room Air Intake Visit Reasons: Intervertebral Disc Degeneration DARYN 02/12/23 Intake Note: Patient comes in for follow up. Reports pain 02/12. Allergies hazelnut Allergy (Severe, Verified 05/15/24 14:40) Itching, coughing, and hives Penicillins [PENICILLINS] Allergy (Severe, Verified 05/15/24 14:40) HIVES Iodinated Contrast Media [IV CONTRAST] Allergy (Intermediate, Verified 05/15/24 14:40) HIVES peanut [PEANUTS] Allergy (Intermediate, Verified 05/15/24 14:40) HIVES shellfish derived [SHELLFISH DERIVED] Allergy (Intermediate, Verified 05/15/24 14:40) HIVES almond Allergy (Mild, Verified 05/15/24 14:40) Hives cat dander Allergy (Mild, Verified 05/15/24 14:40) cough/hives dog dander Allergy (Mild, Verified 05/15/24 14:40) cough/hives pollen extracts Allergy (Mild, Verified 05/15/24 14:40) runny nose, itchy eyes birch trees Allergy (Severe, Uncoded 02/13/24 11:38) Itching HPI Comments Details: Yanci is back in my office after a year on absence. She had on my in referral total hip replacement which helped her pain significantly. Now she is back in my office complaining on pain in the axial nature of lower lumbar spine. She was referred to the MRI and MRI results are as below. I offered this patient to schedule her for bilateral medial branch block L3-L4 dorsal ramus L5. She insists on doing it under anesthesia. I will schedule it in operating room accordingly. Prior: History of right sciatica/nerve pain, chronic, has had injections with Dr. Thomas. Had hip and SI joint injections. Was referred to Ortho for hip replacement. S/P right THR 08/15/23. She says that the pain she has now is the same pain she had prior to hip replacements, but less in severity. However she is worried that it has not gone away completely. Pain is right lower back, SI joint area, runs down to right thigh. Stops at the thigh. Does not radiate to knee or foot. Denies numbness. Denies weakness but pain stops her with prolonged walking. Had PT/rehab after surgery. History of vertebral fracture T10 and T11. No history of kyphoplasty. No lumbar surgeries. I don't think she's had lumbar epidural. [facility] Medical History Hydronephrosis, bilateral Osteopenia Renal calculi Sacroiliac joint pain Encounter for medication monitoring Palpitations Gastritis Fibromyalgia Hx of small bowel obstruction Abdominal pain Obesity (BMI 30-39.9) Bipolar depression Insomnia HLA-B27 spondyloarthropathy Osteoarthritis of multiple joints Vitamin D deficiency Migraine Allergic rhinitis Mild intermittent asthma without complication Pure hypercholesterolemia Primary osteoarthritis of right hip Lumbar spondylosis Surgical History History of total hip arthroplasty (~08/15/23) S/P cystourethroscopy with dilation of urethral stricture (~07/21/20) History of esophagogastroduodenoscopy (EGD) Hx of unilateral oophorectomy Hx of colonoscopy Hx of cholecystectomy Hx of cystoscopy History of extraction of renal calculus History of carpal tunnel surgery History of hand surgery History of hysterectomy Family History Father Kidney problem Diabetes Mother Kidney malignancy Diabetes Brother Asthma Diabetes Social History Household Members: Spouse Housing: House Are you a primary coronary care unit nurse to a significant other at home: No Do you presently have visiting nurse or other home services: Yes Unable to assess alcohol history related to: Unknown Alcohol intake: never Comment: counts correct Patient Tobacco Use Status: Never used Tobacco e-Cigarette/Vaping Use: Never Used Second Hand Smoke Exposure: No Advance Directives Date on File: 08/08/23 service: No Current occupational status: disabled Cognitive needs: No Hearing needs: No Vision needs: Yes Review of Systems Const All systems reviewed & are unremarkable except as noted in HPI and below ENT Reports Normal hearing present Neuro Reports Normal hearing present and Denies Abnormal speech present Physical Exam Vital Signs: Last Vital Signs Pulse 71 10/10/24 14:37 Resp 16 05/15/24 14:37 BP 148/83 H 05/15/24 14:37 Pulse Ox 96 05/15/24 14:37 Oxygen Delivery Method Room Air 05/15/24 14:37 BMI result Body Mass Index 38.0 Const General: healthy appearing, no acute distress and well developed Nutritional Appearance: obese Orientation/consciousness: patient oriented x3 HEENT Head: Yes normocephalic and Yes atraumatic Ears: hearing grossly normal bilaterally Mouth: Normal oral and palatal mucosa present Throat: Yes posterior oropharynx normal, Yes tonsils normal and Yes uvula midline Eyes General: appearance normal, both eyes and all related structures Eyelids: Yes eyelids normal Pupils: Equal, round and reactive pupils present EOM: EOMs intact bilaterally Neck Neck: Yes normal visual inspection and Yes no JVD Resp Effort & Inspection: normal respiratory effort, able to speak in complete sentences, normal respiratory pattern, no audible wheezes and no cough Cardio Jugular venous distension: no JVD GI Inspection: Yes obesity Back/Spine/Pelvis Other: Tenderness on palpation in projection of most lower portion of the spinal processes of the L4-5 and S1 vertebra. Loading test is positive bilaterally. SLR is negative bilaterally. On physical exam demonstrates normal strength of bilateral lower extremities. Skin General skin exam: elasticity normal, turgor normal and dry skin Neuro General: patient oriented x3 Cranial nerves: Yes Equal, round and reactive pupils present and Yes Normal hearing present Cognition (Neuro): normal cognition Speech: No Abnormal speech present Psych Appearance: grossly normal Mental Status: mental status grossly normal Speech and movement: Normal speech and movement present Affect: normal affect Attitude: cooperative Thought process: Normal thought process present Thought content: Normal thought content present Insight: Good insight present (Psych) Judgement: Good judgement present (Psych) Results Reviewed Results Reviewed: MRI of the lumbar spine 2023 CORONAL ALIGNMENT: Normal. SAGITTAL ALIGNMENT: There is 4 mm of grade 1 degenerative spondylolisthesis at L4-L5 without spondylolysis. The remainder of the lumbar spine is anatomically aligned. LUMBOSACRAL JUNCTION: Normal. There are 5 jru-aez-vhwpfhw lumbar-type vertebral bodies. VERTEBRAL BODIES: There is pxqq-ce-atnwoega anterior wedging of the L1 vertebral body which appears chronic and healed. There is slight anterior wedging of T12 which appears chronic and healed and there is moderate anterior wedging of T11, also chronic and healed. Otherwise vertebral body heights are well maintained. No significant retropulsion. DISC SPACES AND ENDPLATES: There are mild degrees of disc volume loss at L3-L4, L4-L5 and L5-S1 with mild degrees of loss of intradiscal T2-weighted signal at these levels with central Schmorl's nodes at the levels between L1-L2 and L3-L4 inclusive, with fdny-pg-rhvchekh degrees of anterolateral spondylosis throughout the lumbar spine. There is qxpj-ew-hyzldymz disc volume loss at L1-L2. There are central Schmorl's nodes at T12-L1 with moderate anterior marginal spondylosis asymmetric to the right. Eujyarrf-rv-drqzjf disc volume loss at T11-T12 with disc desiccation, Schmorl's nodes and moderate spondylosis. Central Schmorl's nodes, disc desiccation, iviv-tb-kalnkzxi volume loss and mild spondylosis at T10-T11. SPINAL CANAL: No abnormal developmental findings. BONE MARROW: No suspicious marrow-replacing process or bone marrow edema. CONUS MEDULLARIS: Terminates at L1. Morphology and signal is normal. INTRADURAL NERVE ROOTS: Within normal limits. L5-S1: There is concentric disc bulging with superimposed broad-based central extruded disc herniation with mild caudal migration encroaching on the ventral epidural fat without S1 nerve root impingement or thecal sac encroachment. There is pcar-zd-riribpar bilateral facet joint arthropathy without significant canal stenosis. There is kobn-mx-jjequxjp left-sided and moderate right-sided foraminal stenosis, with a superimposed right foraminal disc herniation impinging on the exiting right L5 nerve root. L4-L5: Unroofing of the posterior disc margin is noted consistent with grade 1 spondylolisthesis. There is pseudodisc bulging with a superimposed left-sided foraminal/extraforaminal disc protrusion. There is qqjs-ak-tbghjruc flattening of the ventral dural sac and there is ligamentum flavum thickening with iagmxnwr-un-nmupst bilateral facet joint arthrosis. Mild central canal narrowing is noted and there is moderate bilateral lateral recess stenosis slightly encroaching on the traversing L5 nerve roots. Cnww-oo-ghpzieyc right and moderate left-sided foraminal stenosis is noted with disc herniation impinging on the left L4 nerve root. L3-L4: There is concentric disc bulging, with slight flattening of the ventral dural sac. There is ybzo-ah-csfklpyv bilateral facet joint arthrosis without significant canal stenosis. There is mild foraminal narrowing bilaterally without neural impingement. L2-L3: Shallow broad-based central to right central disc protrusion with mild indentation of the ventral thecal sac. Minor right-sided facet joint arthropathy noted. No significant canal or neural foraminal stenosis. L1-L2: Concentric disc bulging is noted, with superimposed central disc protrusion and flattening of the ventral dural sac. No significant facet joint arthrosis, canal or neural foraminal stenosis. On sagittal and axial T1 views, there is broad-based central extruded disc herniation at T11-T12 with slight caudal migration without cord impingement. There is mild ventral cord deformity at this level, which is likely chronic. There is guay-gf-hwynyhgj canal stenosis at this level and there is facet joint arthrosis bilaterally with mild bilateral foraminal narrowing. Probable right posterolateral disc osteophyte complex as well abuts the extraforaminal right T11 nerve root. PARAVERTEBRAL AND INCLUDED EXTRASPINAL SOFT TISSUES: The paravertebral soft tissues appear grossly unremarkable. Incidental note is made of left-sided hydroureteronephrosis, which is incompletely imaged. There is also some fullness of the right renal collecting system and suspicion for a 1.4 cm simple-appearing cortical cyst medial cortex lower pole right kidney. These findings are similar to the CT abdomen of 08/27/2023. Assessment & Plan Assessment & Plan (1) Spondylosis of lumbar region without myelopathy or radiculopathy: Code(s): M47.816 - Spondylosis without myelopathy or radiculopathy, lumbar region Category: Medical (2) Lumbar degenerative disc disease: Code(s): M51.36 - Other intervertebral disc degeneration, lumbar region Category: Medical Qualifiers: Disc-related pain type: discogenic back pain and lower extremity pain Qualified Code(s): M51.362 - Other intervertebral disc degeneration, lumbar region with discogenic back pain and lower extremity pain (3) Status post total hip replacement, right: Code(s): Z96.641 - Presence of right artificial hip joint Category: Surgical Plan MRI was reviewed by me personally and although there are multiple disc degeneration changes it should not be her pain generations. There is significant facet joint arthropathy noted in the MRI report. I will schedule her for bilateral L3, L4, dorsal ramus L5 medial branch block diagnostic. She insists on this being done deep sedation. We will use propofol only. We will meet after the diagnostic injection and I will schedule her for possible sprint PNS versus RFA. Patient Instructions: I here by testify that I spent 35 minutes in conversation with this patient as well as evaluating her MRI and MRI report as well as planning her care and organizing this note. Coding Level of Care Code Est Pt Level 4 (64380) Diagnoses Spondylosis of lumbar region without myelopathy or radiculopathy M47.816 Degeneration of intervertebral disc of lumbar region with discogenic back pain and lower extremity pain M51.362 Disc-related pain type: discogenic back pain and lower extremity pain Status post total hip replacement, right Z96.641
[2024-05-15 14:37] VITALS: BP 148/83; PULSE 71; RESP 16; O2SAT 96; BMI 38.0
== END 2024-05-15 14:47 | disposition home or self-care (01) ==
PROVIDERS: PCP Internal Medicine; Visit Provider Anesthesiology
DX: M47.816 Spondylosis without myelopathy or radiculopathy, lumbar region (principal); M51.362 Other intervertebral disc degeneration, lumbar region with discogenic back pain and lower extremity pain; Z96.641 Presence of right artificial hip joint
CPT/HCPCS: 99214

== ENCOUNTER → 2024-05-15 14:06 | Outpatient (BNVA) | payer OTHER, SELFPAY | PROVIDERS: PCP Internal Medicine; Visit Provider Anesthesiology | DX: M47.816 Spondylosis without myelopathy or radiculopathy, lumbar region (principal); M51.362 Other intervertebral disc degeneration, lumbar region with discogenic back pain and lower extremity pain; Z96.641 Presence of right artificial hip joint | CPT/HCPCS: 99212 ==

== ENCOUNTER 2024-05-23 13:59 | Outpatient (AMB) | payer OTHER, SELFPAY ==
[2024-05-23 14:05] VITALS: BMI 37.9
--- NOTE | 2024-05-23 14:05 | A.OFFVIS_ITS ---
Vital Signs 05/23/24 14:05 Height 5 ft Weight 194 lb BMI 37.9 Intake Visit Reasons: OV- Right Thumb Trig finger, discuss surgery Intake Note: Yanci is a 54 year old left hand dominant female who presents in the office today for a new problem visit with complaints of her right thumb trigger. Patient would like to discuss treatment options and possible surgery. Allergies hazelnut Allergy (Severe, Verified 05/23/24 14:30) Itching, coughing, and hives Penicillins [PENICILLINS] Allergy (Severe, Verified 05/23/24 14:30) HIVES Iodinated Contrast Media [IV CONTRAST] Allergy (Intermediate, Verified 05/23/24 14:30) HIVES peanut [PEANUTS] Allergy (Intermediate, Verified 05/23/24 14:30) HIVES shellfish derived [SHELLFISH DERIVED] Allergy (Intermediate, Verified 05/23/24 14:30) HIVES almond Allergy (Mild, Verified 05/23/24 14:30) Hives cat dander Allergy (Mild, Verified 05/23/24 14:30) cough/hives dog dander Allergy (Mild, Verified 05/23/24 14:30) cough/hives pollen extracts Allergy (Mild, Verified 05/23/24 14:30) runny nose, itchy eyes birch trees Allergy (Severe, Uncoded 02/13/24 11:38) Itching HPI HPI OV- Right Thumb Trig finger, discuss surgery: Details: Patient is a 54-year-old female who presents for evaluation of a right trigger thumb, ongoing for several months. The patient states that her thumb locks and catches in a flex position on a regular basis, and she finds this to be a significant impediment to her daily life. The patient also reports significant pain associated with the study and catching. The patient states she would like to explore potential surgical intervention for her trigger thumb. Patient denies any numbness or tingling in the right hand. No other acute complaints or concerns at this time [facility] Medical History Hydronephrosis, bilateral Osteopenia Renal calculi Sacroiliac joint pain Encounter for medication monitoring Palpitations Gastritis Fibromyalgia Hx of small bowel obstruction Abdominal pain Obesity (BMI 30-39.9) Bipolar depression Insomnia HLA-B27 spondyloarthropathy Osteoarthritis of multiple joints Vitamin D deficiency Migraine Allergic rhinitis Mild intermittent asthma without complication Pure hypercholesterolemia Primary osteoarthritis of right hip Lumbar spondylosis Surgical History History of total hip arthroplasty (~08/15/23) S/P cystourethroscopy with dilation of urethral stricture (~07/21/20) History of esophagogastroduodenoscopy (EGD) Hx of unilateral oophorectomy Hx of colonoscopy Hx of cholecystectomy Hx of cystoscopy History of extraction of renal calculus History of carpal tunnel surgery History of hand surgery History of hysterectomy Family History Father Kidney problem Diabetes Mother Kidney malignancy Diabetes Brother Asthma Diabetes Social History Household Members: Spouse Housing: House Are you a primary personal care attendant to a significant other at home: No Do you presently have visiting nurse or other home services: Yes Unable to assess alcohol history related to: Unknown Alcohol intake: never Comment: counts correct Patient Tobacco Use Status: Never used Tobacco e-Cigarette/Vaping Use: Never Used Second Hand Smoke Exposure: No Advance Directives Date on File: 08/08/23 service: No Current occupational status: disabled Cognitive needs: No Hearing needs: No Vision needs: Yes Physical Exam Vital Signs: BMI result Body Mass Index 37.9 Extrem Other: Patient is alert, oriented, and in no acute distress. Neuro: Normal sensation of the tips of all digits of the right hand at this time Vascular: Cap refill brisk Pain: Patient does report tenderness to palpation at the level of the A1 humberto of the right thumb ROM: Visible and palpable locking and catching of the right thumb Patient is able to make a closed fist and extend all other digits of the right hand fully and without difficulty Skin: No lacerations or abrasions. General: No ecchymosis, erythema, or evidence of infection. Psych: Appears grossly normal Affect normal Attitude cooperative Office Procedures Tendon Injection Tendon Injection Details: Right trigger thumb injection [id number]-[id number] Tendon Sheath Injection All charges added?: Procedure code (CPT) selection complete Assessment & Plan Assessment & Plan (1) Trigger thumb, right thumb: Code(s): M65.311 - Trigger thumb, right thumb Category: Medical Plan 1. right trigger thumb I discussed this condition with the patient I discussed the treatment options available, the patient would like to proceed with steroid injection The risks and benefits of a steroid injection including but not limited to risk of damage to blood vessels, nerves, tendons, infection, skin bleaching, failure to improve symptoms, increased pain, and possible need for further injections or other intervention were discussed with the patient and the patient wishes to proceed with the steroid injection. Once consent was obtained, I sterilely prepped the area over the A1 humberto of the flexor tendon sheath of the right thumb. I then injected the flexor tendon sheath with a combination of 1 mL of dexamethasone (4mg/ml), and 1% lidocaine. The patient tolerated the procedure well with no complications. If the patient continues to have locking and catching 4-6 weeks following this injection, they may call to schedule appointment to discuss alternative treatment options Follow-up prn Coding Level of Care Code Est Pt Level 3 (15788) Diagnoses Trigger thumb, right thumb M65.311 CPT Codes Tendon Injection - Tendon Injection 1: [id number]-[id number] Tendon Sheath Injection ([id number])
== END 2024-05-23 15:20 | disposition home or self-care (01) ==
PROVIDERS: PCP Internal Medicine
DX: M65.311 Trigger thumb, right thumb (principal)
CPT/HCPCS: 20550; 99213

== ENCOUNTER → 2024-05-23 13:59 | Outpatient (BNVA) | payer OTHER, SELFPAY | PROVIDERS: PCP Internal Medicine | DX: M65.311 Trigger thumb, right thumb (principal) | CPT/HCPCS: 20550; 99212; J1100; J2003 ==

== ENCOUNTER 2024-05-30 11:44 | Outpatient (REF) | payer OTHER, SELFPAY ==
[2024-05-30 12:04] LABS: MANUAL DIFF FLAG NO
[2024-05-30 12:20] LABS: Basophils Absolute Auto 0.1 X10*3/uL (0.0-0.2); Basophils Percent Auto 0.7 % (0-2); Eosinophils Absolute Auto 0.2 X10*3/uL (0.0-0.4); Eosinophils Percent Auto 2.3 % (0-4); Hematocrit 38.8 % (37.0-47.0); Hemoglobin 12.2 g/dl (12.0-16.0); Imm Gran Abs Auto 0.04 X10*3/uL (0.00-0.03); Imm Gran Pct Auto 0.5 % (0.0-0.4); Lymphocytes Absolute Auto 1.1 X10*3/uL (1.2-4.9); Mean Corpuscular HGB Conc 31.4 g/dl (31.0-35.0); Mean Corpuscular Hemoglobin 26.9 pg (27.0-33.0); Mean Corpuscular Volume 85.5 fL (80.0-98.0); Mean Platelet Volume 11.2 fL (9.4-12.3); Monocytes Absolute Auto 0.5 X10*3/uL (0.1-1.2); Monocytes Percent Auto 5.5 % (2-11); Neutrophils Absolute Auto 6.9 x10*3/uL (2.0-8.3); Platelet Count 243 X10*3/uL (160-400); Red Blood Count 4.54 X10*6/uL (4.20-5.50); Red Cell Distribution Width 15.2 % (11.0-16.0); White Blood Count 8.8 X10*3/uL (4.8-10.8)
[2024-05-30 12:31] LABS: Appearance Urine Clear; Color Urine Yellow; Glucose Urine UA Negative (Negative); Leukocyte Esterase Urine Small (1+) (Negative); Nitrite Urine Negative (Negative); UMIC TRIGGER UACC YES; Urine Blood Negative (Negative); Urine Ketones Negative (Negative); Urine Protein Negative (Neg-Trace)
[2024-05-30 12:49] LABS: Bacteria Urine None Seen (None Seen); Hyaline Casts Urine 0-2 /LPF (0-2); RBC Urine 0-2 /HPF (0-2); Squamous Epithelial Cell Urine 0-2 /HPF (0-2); UACC Culture Trigger YES; WBC Urine 0-5 /HPF (0-5)
[2024-05-30 15:56] LABS: Adenovirus F 40/41 Not Detected (Not Detect.); Astrovirus Not Detected (Not Detect.); Campylobacter Not Detected (Not Detect.); Cryptosporidium Not Detected (Not Detect.); Cyclospora cayetanensis Not Detected (Not Detect.); E. coli EAEC Not Detected (Not Detect.); E. coli EPEC Not Detected (Not Detect.); E. coli ETEC Not Detected (Not Detect.); E. coli STEC Not Detected (Not Detect.); Entamoeba histolytica Not Detected (Not Detect.); Giardia lamblia Not Detected (Not Detect.); Norovirus GI/GII Not Detected (Not Detect.); Plesiomonas shigelloides Not Detected (Not Detect.); Rotavirus A Not Detected (Not Detect.); Salmonella Not Detected (Not Detect.); Sapovirus Not Detected (Not Detect.); Shigella sp./EIEC Not Detected (Not Detect.); Vibrio Not Detected (Not Detect.); Vibrio Cholerae Not Detected (Not Detect.); Yersinia enterocolitica Not Detected (Not Detect.)
== END 2024-05-30 11:45 | disposition home or self-care (01) ==
LOC: HO.LAB 11:44
PROVIDERS: Nurse Practitioner Family; PCP Internal Medicine; Visit Provider Internal Medicine
DX: D64.9 Anemia, unspecified (principal); R19.7 Diarrhea, unspecified; R30.0 Dysuria
CPT/HCPCS: 36415; 81001; 85025; 87086; 87507

== ENCOUNTER 2024-06-04 14:42 | Outpatient (AMB) | payer OTHER, SELFPAY ==
[2024-06-04 14:45] VITALS: BP 122/80; PULSE 75; O2SAT 97; BMI 37.8
--- NOTE | 2024-06-04 14:45 | MHC.PC.OV ---
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 Accompanied by: Self / Same As Patient Allergies hazelnut Allergy (Severe, Verified 06/08/24 17:04) Itching, coughing, and hives Penicillins [PENICILLINS] Allergy (Severe, Verified 06/08/24 17:04) HIVES Iodinated Contrast Media [IV CONTRAST] Allergy (Intermediate, Verified 06/08/24 17:04) HIVES peanut [PEANUTS] Allergy (Intermediate, Verified 06/08/24 17:04) HIVES shellfish derived [SHELLFISH DERIVED] Allergy (Intermediate, Verified 06/08/24 17:04) HIVES almond Allergy (Mild, Verified 06/08/24 17:04) Hives cat dander Allergy (Mild, Verified 06/08/24 17:04) cough/hives dog dander Allergy (Mild, Verified 06/08/24 17:04) cough/hives pollen extracts Allergy (Mild, Verified 06/08/24 17:04) runny nose, itchy eyes birch trees Allergy (Severe, Uncoded 06/08/24 17:04) Itching Medication List - Last Reconciled 06/08/24 by Christ Goodwin MD albuterol sulfate 90 mcg/actuation 2 puffs inhalation Q4-6H PRN atorvastatin 20 mg PO DAILY baclofen 20 mg PO BID 30 days bimatoprost 0.01% (Lumigan) 1 drp ophthalmic (eye) BEDTIME bupropion HCl XL 300 mg PO QAM cetirizine (Zyrtec) 10 mg PO DAILY PRN cholecalciferol (vitamin D3) 50 mcg PO DAILY clindamycin HCl 600 mg (2 x 300 mg) PO ONCE 1 day clonazepam (Klonopin) 1 mg PO BID cyclosporine 0.05% (Restasis) 1 drp ophthalmic (eye) Q12H docusate sodium 100 mg PO BID PRN dorzolamide-timolol 22.3-6.8 mg/mL 1 drp ophthalmic (eye) BID epinephrine 0.3 mg IM ONCE PRN famotidine 20 mg PO BEDTIME fluticasone propionate 220 mcg/actuation (Flovent HFA) 1 puff inhalation BID PRN fluticasone propionate 50 mcg/actuation 1 spray intranasal DAILY PRN gabapentin 800 mg PO Q8H 30 days magnesium oxide 400 mg PO BEDTIME 30 days mometasone 100 mcg/actuation (Asmanex HFA) 1 puff inhalation BID PRN montelukast (Singulair) 10 mg PO BEDTIME naloxone 10 mg (0.4 mL) subcut Q2M omalizumab (Xolair) 150 mg subcut Q3W ondansetron 4 mg PO Q8H PRN pantoprazole 40 mg PO DAILY propranolol ER 60 mg PO BEDTIME 30 days riboflavin (vitamin B2) 400 mg PO DAILY 30 days [SHOWER CHAIR As directed] sumatriptan succinate 25 - 100 mg orally at onset of headache, may repeat in 2 hrs PRN; max 2 tabs per day or 4 tabs/week (may take with Ibuprofen or Tylenol) 30 days tramadol 50 mg PO BID walker Folding Front wheeled walker zolpidem (Ambien) 10 mg PO BEDTIME PRN 30 days Tobacco use date assessed: 06/04/24 Dental Screening Dental Screen Date: 06/04/24 Did you have a dental visit in the last 12 months?: Yes Did you have a dental problem in the last 6 months where you did not have access to dental care?: No Was dental information given to patient?: Patient has dentist HPI Hypertension HPI Details Patient comes in today for her follow up visit States that she feels okay She denies any headaches or dizziness Denies any chest pains, no shortness of breath No nausea / vomiting, no abdominal pain No change in bowel habits noted She still has chronic diffuse joint pains and myalgias but states that these have been manageable lately She had her follow up labs done a few days ago but only her CBC and U/A were done as the specimen for her chem profile was apparently hemolyzed - patient states that she never received a call back from the lab to return there for a redraw [facility] Medical History (Updated 06/08/24 @ 18:00 by Christ Goodwin MD) Renal calculi Insomnia HLA-B27 spondyloarthropathy Osteoarthritis of multiple joints Hydronephrosis, bilateral Osteopenia Sacroiliac joint pain Encounter for medication monitoring Palpitations Gastritis Fibromyalgia Hx of small bowel obstruction Abdominal pain Obesity (BMI 30-39.9) Bipolar depression Vitamin D deficiency Migraine Allergic rhinitis Mild intermittent asthma without complication Pure hypercholesterolemia Primary osteoarthritis of right hip Lumbar spondylosis Surgical History History of total hip arthroplasty (~08/15/23) S/P cystourethroscopy with dilation of urethral stricture (~07/21/20) History of esophagogastroduodenoscopy (EGD) Hx of unilateral oophorectomy Hx of colonoscopy Hx of cholecystectomy Hx of cystoscopy History of extraction of renal calculus History of carpal tunnel surgery History of hand surgery History of hysterectomy Family History Father Kidney problem Diabetes Mother Kidney malignancy Diabetes Brother Asthma Diabetes Social History Household Members: Spouse Housing: House Are you a primary direct care counselor to a significant other at home: No Do you presently have visiting nurse or other home services: Yes Unable to assess alcohol history related to: Unknown Alcohol intake: never Comment: counts correct Patient Tobacco Use Status: Never used Tobacco e-Cigarette/Vaping Use: Never Used Second Hand Smoke Exposure: No Advance Directives Date on File: 08/08/23 service: No Current occupational status: disabled Cognitive needs: No Hearing needs: No Vision needs: Yes Questionnaire PHQ-9 Over the last 2 weeks, how often have you been bothered by any of the following problems? 1. Little interest or pleasure in doing things: not at all 2. Feeling down, depressed, or hopeless: several days 3. Trouble falling or staying asleep, or sleeping too much: not at all 4. Feeling tired or having little energy: not at all 5. Poor appetite or overeating: not at all 6. Feeling bad about yourself - or that you are a failure or have let yourself or your family down: not at all 7. Trouble concentrating on things, such as reading the newspaper or watching television: not at all 8. Moving or speaking so slowly that other people could have noticed. Or the opposite - being so fidgety or restless that you have been moving around a lot more than usual: not at all 9. Thoughts that you would be better off or of hurting yourself in some way: not at all Total score: 1 Depression Screening Interpretation: Positive Depression Screening Follow-up: Existing condition and In treatment Depression Screening Done: Yes 96214 - PHQ-9 Billing: Yes Source: Developed by Drs. Khalif Rodriguez, Columba Bangura, Shyam Timmons and colleagues, with an educational jalil from [employer]. Thrive Questionnaire Date Thrive assessed: 06/04/24 I am a: Patient What is your living situation today?: I have a steady place to live Within the past 12 months, did the food you bought not last and you didn't have the money to get more?: Never true Within the past 12 months, did you worry whether your food would run out before you got money to buy more?: Never true Do you have trouble paying for medicines?: No Do you have trouble getting transportation to medical appointments?: No Do you have trouble paying your heating and electricity bill?: No Do you have trouble taking care of your child, family member or friend?: No Do you have trouble with day-to-day activities such as bathing, preparing meals, shopping, managing finances, etc.?: No Are you currently unemployed and looking for a job?: No Are you interested in more education?: No Please select the resources that you would like help with: None Currently or been in a relationship where the following occur: No concerns reported THRIVE Score: 0 AUDIT C Alcohol Use Questionnaire (AUDIT-C) 1. How often do you have a drink containing alcohol?: Never 3. How often do you have six or more drinks on one occasion?: Never Total Score: 0 Score Reviewed/Action Taken: Yes ALEKS-7 AMB Questionnaire ALEKS-7 Date ALEKS - 7 assessed: 06/04/24 Feeling nervous, anxious, or on edge: 0 = Not at all Not being able to stop or control worryin = Not at all Worrying too much about different things: 0 = Not at all Trouble relaxin = Not at all Being so restless that it is hard to sit still: 0 = Not at all Becoming easily annoyed or irritable: 0 = Not at all Feeling afraid as if something awful might happen: 0 = Not at all Total ALEKS-7 score (0-4 normal; 5-9 mild; 10-14 moderate; 15-21 severe): 0 Source: Developed by Drs. Khalif Rodriguez, Columba Bangura, Shyam Timmons and colleagues, with an educational jalil from [employer]. Review of Systems Const Denies chills, Reports fatigue, Denies fever(s) and Denies headache(s) ENT Denies dysphagia, Denies dizziness, Denies otalgia, Denies headache(s), Reports neck pain (chronic), Denies odynophagia and Denies sore throat Card Denies chest pain, Reports palpitations (occasionally) and Denies dyspnea Resp Denies chest congestion, Denies cough and Denies dyspnea GI Denies abdominal pain, Denies constipation, Denies dysphagia, Denies heartburn, Denies diarrhea, Denies nausea, Denies odynophagia and Denies vomiting Denies hematuria, Denies difficulty voiding, Denies nocturia, Denies dysuria and Denies urinary urgency Musc Reports back pain (chronic), Reports myalgias (diffuse), Reports arthralgias (involving multiple joints ), Reports neck pain (chronic) and Reports stiffness Skin/Breast Denies rash Neuro Denies dizziness and Denies headache(s) Psych Denies anxiety Endo Reports fatigue and Reports palpitations (occasionally) Physical exam (Primary Care) Vital Signs: Last Vital Signs Pulse 75 06/04/24 14:45 BP 122/80 06/04/24 14:45 Pulse Ox 97 06/04/24 14:45 Oxygen Delivery Method Room Air 06/04/24 14:45 BMI result Body Mass Index 37.8 Tobacco/Smoking Status: Tobacco use Status Tobacco use date assessed 06/04/24 06/04/24 14:52 Patient Tobacco Use Status Never used Tobacco 06/04/24 14:52 e-Cigarette/Vaping Use Never Used 06/04/24 14:52 PHQ-9: PHQ-9 Score PHQ-9: Total score 1 06/04/24 15:25 Depression Screening Interpretation: Positive Depression Screening Follow-up: Existing condition and In treatment Thrive Assessment: Date of Thrive Assessment Date Thrive assessed 06/04/24 06/04/24 14:52 Currently or been in a relationship where the following occur: No concerns reported Const General: no acute distress and alert HENMT Ears: TM's normal bilaterally and EAC's normal Throat: Yes posterior oropharynx normal and Yes tonsils normal Neck Neck: Yes no lymphadenopathy and Yes supple Thyroid: Thyroid normal Lymphatic: no lymphadenopathy noted Resp Auscultation: clear to auscultation bilaterally, no crackles, no rales and no wheezes Cardio Rate: regular rate Rhythm: regular rhythm Heart sounds: no murmurs GI Palpation (GI): Soft to palpation and nontender Auscultation: normal bowel sounds General: Yes no CVA tenderness Back/Spine/Pelvis Back: no CVA tenderness Cervical Spine: Cervical spine tenderness Thoracic/Lumbar Spine: lumbar spinal tenderness Skin Rashes: no rashes Extrem General: Yes no clubbing, cyanosis or edema Right lower extremity: hip/thigh Details: tenderness Location: of the hip and abnormal ROM (increased pain with weight-bearing and active ROM) Office Procedures Flu Questionnaire Does the patient have a severe egg allergy?: No Immunizations Fluarix Triv [id number] (PF) 45 mcg (15 mcg x 3)/0.5 mL IM syringe Performing Provider: Christ Goodwin MD [place] [facility] [place] [facility] Documented (not given) by: ERNESTO Craig on 06/04/24 14:54 Reason Not Given: Patient Refused Results Reviewed Results Reviewed: Laboratory Tests 05/30/24 05/30/24 11:58 12:02 WBC 8.8 Hgb 12.2 Hct 38.8 Plt Count 243 D Ur Specific Sunset 1.020 Urine Protein Negative Urine Glucose (UA) Negative Urine Blood Negative Urine Nitrite Negative Ur Leukocyte Esterase Small (1+) H Coding Level of Care Code Est Pt Level 4 (41378) Diagnoses Pure hypercholesterolemia E78.00 Palpitations R00.2 Migraine without status migrainosus, not intractable, unspecified migraine type G43.909 Migraine type: unspecified Status migrainosus presence: without status migrainosus Intractability: not intractable Mild intermittent asthma without complication J45.20 Allergic rhinitis, unspecified seasonality, unspecified trigger J30.9 Allergic rhinitis trigger: unspecified Allergic rhinitis seasonality: unspecified Ureteral stricture, left N13.5 Renal calculi N20.0 Vitamin D deficiency E55.9 HLA-B27 spondyloarthropathy M47.899 Osteoarthritis of multiple joints, unspecified osteoarthritis type M15.9 Osteoarthritis type: unspecified Osteopenia of lumbar spine M85.88 Osteopenia location: lumbar spine Fibromyalgia M79.7 Insomnia, unspecified type G47.00 Insomnia type: unspecified Bipolar depression F31.9 Obesity (BMI 30-39.9) E66.9 Assessment & Plan Assessment & Plan (1) Pure hypercholesterolemia: Code(s): E78.00 - Pure hypercholesterolemia, unspecified Category: Medical Plan: Patient went for her follow up labs last week but her chem profile, including her fasting lipids, were not done as her specimen was apparently hemolyzed Reinforced low cholesterol diet Continue Atorvastatin 20 mg QD for now Will just have her recheck her labs and fasting lipids in 4 months for follow-up (2) Palpitations: Code(s): R00.2 - Palpitations Category: Medical Plan: Patient states that her palpitations have not been occurring often lately Continue Metoprolol 25 mg BID Extended Holter monitor (3 days) and echocardiogram done back in February 2022 both came out normal Holter monitor showed baseline normal sinus rhythm with average heart beat of 77 beats per minute with no significant pauses or bradycardia noted. There was a total of 4322 PVCs accounting for 1.32% of total beats but no patient reported events noted She was seen by cardiology early last year and was reportedly reassured that her symptoms are primarily from her PVCs and she has no other abnormal cardiac issues or findings Have recommended weight loss and also low dose Metoprolol 25 mg BID, which she is currently still on and she appears to be doing well on the medication so far (3) Migraine: Code(s): G43.909 - Migraine, unspecified, not intractable, without status migrainosus Category: Medical Qualifiers: Migraine type: unspecified Status migrainosus presence: without status migrainosus Intractability: not intractable Qualified Code(s): G43.909 - Migraine, unspecified, not intractable, without status migrainosus Plan: Stable lately Reinforced avoidance of migraine triggers Continue Narariptan 2.5 mg once a day as needed and Vitamin B2 tablets 100 mg 2 times a day for headache prophylaxis [place] [facility] [place] (4) Mild intermittent asthma without complication: Code(s): J45.20 - Mild intermittent asthma, uncomplicated Category: Medical Plan: Stable -? PFTs done a couple of years ago came back normal Continue Flovent HFA 220 mg 1 puff twice a day, Albuterol HFA 2 puffs 4 times a day as needed and Montelukast 10 mg 1 tablet QD (5) Allergic rhinitis: Code(s): J30.9 - Allergic rhinitis, unspecified Category: Medical Qualifiers: Allergic rhinitis trigger: unspecified Allergic rhinitis seasonality: unspecified Qualified Code(s): J30.9 - Allergic rhinitis, unspecified Plan: She continues to receive immunotherapy (Xolair) from her writing manager Follow-up with writing manager as scheduled (6) Ureteral stricture, left: Code(s): N13.5 - Crossing vessel and stricture of ureter without hydronephrosis Category: Medical Plan: She currently appears to only have about 45% of preserved left renal function with evidence of high-grade obstruction, likely due to the left ureteral stricture She eventually underwent diagnostic left RPG to further evaluate her left ureteral stricture and left hydronephrosis - retrograde pyelogram revealed (+) widely patent stricture and was negative for high-grade obstruction Follow up with [facility] as scheduled (7) Renal calculi: Code(s): N20.0 - Calculus of kidney Category: Medical Plan: S/P kidney stone removal and stent placement with urology a year ago on 05/23/2023, with no recurrence since Follow up with urology as scheduled (8) Vitamin D deficiency: Code(s): E55.9 - Vitamin D deficiency, unspecified Category: Medical Plan: Continue Vitamin D3 2000 units QD (9) HLA-B27 spondyloarthropathy: Code(s): M47.899 - Other spondylosis, site unspecified Category: Medical Plan: Reinforced activity and weight-lifting restrictions Continue Gabapentin 800 mg TID, Duloxetine 60 mg QD and Sulfasalazine 500 gm 2 tablets every 12 hours (has taken Humira in the past with poor response) Patient underwent bilateral diagnostic L3, L4, DRL5, MBB with Dr. Thomas on 05/03/2021 - she reportedly experienced significant pain relief and was then scheduled for bilateral L3 L4 DR L5 MBB RFA with sedation and flouroscopy but this was denied by her insurance Had a trial of SI joint injection with pain management in February 2023 with good results Follow-up with rheumatology and [place] [facility] [place] as [place] (10) Osteoarthritis of multiple joints: Code(s): M15.9 - Polyosteoarthritis, unspecified Category: Medical Qualifiers: Osteoarthritis type: unspecified Qualified Code(s): M15.9 - Polyosteoarthritis, unspecified Plan: Especially involving the right hip and both hands S/P total right hip arthroplasty in August 2023 Continue Nabumetone 750 mg BID PRN Follow up with rheumatology as scheduled (11) Osteopenia: Comment: T scores 03/2023: Femur 0.4, femoral neck-0.7, LS -1.8 FRAX: 4.1/0.1 Code(s): M85.80 - Other specified disorders of bone density and structure, unspecified site Category: Medical Qualifiers: Osteopenia location: lumbar spine Qualified Code(s): M85.88 - Other specified disorders of bone density and structure, other site Plan: She had a BASELINE BMD done last year on 03/30/2023, which revealed (+) osteopenia based on the lowest T-score value of -1.8 in the lumbar spine Her FRAX score is 4.1% She is encouraged to continue daily Vitamin D and Calcium supplements and to try to exercise and stay as active as she can regularly Will continue to monitor her BMD every 2 to 3 years (12) Fibromyalgia: Code(s): M79.7 - Fibromyalgia Category: Medical Plan: Patient is again encouraged to try to stay active and exercise regularly to help manage her fibromyalgia symptoms better Continue Gabapentin 800 mg TID and Duloxetine 60 mg QD (13) Insomnia: Code(s): G47.00 - Insomnia, unspecified Category: Medical Qualifiers: Insomnia type: unspecified Qualified Code(s): G47.00 - Insomnia, unspecified Plan: Sleep hygiene reinforced Continue Zolpidem 10 mg once a day at bedtime as needed (14) Bipolar depression: Code(s): F31.9 - Bipolar disorder, unspecified Category: Medical Plan: Continue Clonazepam 1 mg twice a day as needed and Citalopram 10 mg once a day Follow-up with Psychiatry as scheduled - has been seeing Juan C Garcia of [facility] since 01/11/2022 (15) Obesity (BMI 30-39.9): Code(s): E66.9 - Obesity, unspecified Category: Medical Plan: Reinforced diet; exercise and weight options are limited and not practical due to her multiple physical issues and comorbidities Plan To return in 4 months for her annual physical examination Orders: Orders Influenza [id number] Immunization 06/04/24 Z23 - Encounter for immunization Lipid Panel 4 Months E78.00 - Pure hypercholesterolemia, unspecified TSH reflex Free T4 4 Months E78.00 - Pure hypercholesterolemia, unspecified UA CC w/rflx Micro + Cult 4 Months R30.0 - Dysuria Vitamin D 25-OH Total 4 Months E55.9 - Vitamin D deficiency, unspecified Complete Blood Count Auto Diff 4 Months D64.9 - Anemia, unspecified Comprehensive [place]. Panel Fast 4 Months E78.00 - Pure hypercholesterolemia, unspecified
== END 2024-06-04 15:33 | disposition home or self-care (01) ==
LOC: HO.HMCH 14:42
PROVIDERS: PCP Internal Medicine; Visit Provider Internal Medicine
DX: E78.00 Pure hypercholesterolemia, unspecified (principal); R00.2 Palpitations; G43.909 Migraine, unspecified, not intractable, without status migrainosus; F31.9 Bipolar disorder, unspecified; J45.20 Mild intermittent asthma, uncomplicated; J30.9 Allergic rhinitis, unspecified; N13.5 Crossing vessel and stricture of ureter without hydronephrosis; N20.0 Calculus of kidney; E55.9 Vitamin D deficiency, unspecified; M47.899 Other spondylosis, site unspecified; M15.9 Polyosteoarthritis, unspecified; M85.88 Other specified disorders of bone density and structure, other site

== ENCOUNTER → 2024-06-04 14:42 | Outpatient (BNVA) | payer OTHER, SELFPAY | PROVIDERS: PCP Internal Medicine; Visit Provider Internal Medicine | DX: E78.00 Pure hypercholesterolemia, unspecified (principal); R00.2 Palpitations; G43.909 Migraine, unspecified, not intractable, without status migrainosus; J45.20 Mild intermittent asthma, uncomplicated; N20.0 Calculus of kidney; N13.5 Crossing vessel and stricture of ureter without hydronephrosis; E55.9 Vitamin D deficiency, unspecified; M47.899 Other spondylosis, site unspecified; M85.88 Other specified disorders of bone density and structure, other site; M79.7 Fibromyalgia; G47.00 Insomnia, unspecified; F31.9 Bipolar disorder, unspecified | CPT/HCPCS: 90471; 96127; 99212 ==

== ENCOUNTER 2024-06-06 15:23 | Outpatient (AMB) | payer OTHER, SELFPAY ==
[2024-06-06 15:37] VITALS: BP 128/68; PULSE 70; O2SAT 96; BMI 37.7
--- NOTE | 2024-06-06 15:37 | MHC.OFFVIS ---
Vital Signs 06/06/24 15:37 Height 5 ft Weight 193 lb 1.999 oz BMI 37.7 BP 128/68 Blood Pressure Location Rt brachial Position Sitting Pulse 70 Pulse Source Pulse Oximeter Pulse Oximetry (%) 96 Oxygen Delivery Method Room Air Intake Visit Reasons: 3 month follow up Intake Note: Relevant Flags or Indicators ? 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 CC; No recent diagnostics, or med orders placed. Pt did have GI panel done. Relevant GI Sx as reported per pt? Nausea - worse in the morning. ? Reflux ? Fecal abnormalities o?? Constipation -- Intermittently o?? Diarrhea ? Abdominal Pain Upper B/L ? Hx of any recent surgeries? None Allergies hazelnut Allergy (Severe, Verified 06/18/24 14:34) Itching, coughing, and hives Penicillins [PENICILLINS] Allergy (Severe, Verified 06/18/24 14:34) HIVES Iodinated Contrast Media [IV CONTRAST] Allergy (Intermediate, Verified 06/18/24 14:34) HIVES peanut [PEANUTS] Allergy (Intermediate, Verified 06/18/24 14:34) HIVES shellfish derived [SHELLFISH DERIVED] Allergy (Intermediate, Verified 06/18/24 14:34) HIVES almond Allergy (Mild, Verified 06/18/24 14:34) Hives cat dander Allergy (Mild, Verified 06/18/24 14:34) cough/hives dog dander Allergy (Mild, Verified 06/18/24 14:34) cough/hives pollen extracts Allergy (Mild, Verified 06/18/24 14:34) runny nose, itchy eyes birch trees Allergy (Severe, Uncoded 06/13/24 13:48) Itching HPI HPI 3 month follow up: Details: LAST VISIT: Constipation IBS (irritable bowel syndrome) GERD (gastroesophageal reflux disease) Postprandial abdominal bloating Nausea and vomiting in adult Diarrhea Plan Patient reports more frequent diarrhea will do GI panel. Patient will increase fiber intake. Continue magnesium at bedtime. Continue pantoprazole in the morning and famotidine at bedtime. Avoid dietary triggers and late night snacking. FODMAP diet encouraged again. Staying upright for minimum 3 hours after meals discussed with patient. Patient will return in 2 months, sooner on as needed basis. She is agreeable to this plan and verbalizes understanding of instructions. She was given the opportunity to ask questions and all questions answered. ? Thank you for allowing me to participate in her care Orders Orders GI Panel 03/14/24 R19.7 Medications Discontinued linaclotide Discontinued Reason: Patient no longer taking 145 mcg PO DAILY 30 caps 2RF TODAY'S VISIT: Patient is here today for follow-up. Patient reports that she has been feeling little better, however she continues to have symptoms depending on what she eats. Patient tries to eat better. Avoids certain dietary triggers. Not sure if she eats enough fiber in her diet. Patient reports that she feels like she moves her bowels, however occasionally patient feels like she does not empty her bowels completely. Occasional postprandial diarrhea. Patient is status post cholecystectomy and we have discussed that in the past that depending on what she eats she might have loose stools after her meal. Patient reports occasional nausea in the morning. Patient denies eating late at night. Patient states that she usually eats smaller meals. Patient is taking pantoprazole in the morning and famotidine at bedtime and for the most part her symptoms are suppressed postprandially. Acid reflux, dyspepsia, dysphagia or odynophagia [facility] Medical History Renal calculi Insomnia HLA-B27 spondyloarthropathy Osteoarthritis of multiple joints Hydronephrosis, bilateral Osteopenia Sacroiliac joint pain Encounter for medication monitoring Palpitations Gastritis Fibromyalgia Hx of small bowel obstruction Abdominal pain Obesity (BMI 30-39.9) Bipolar depression Vitamin D deficiency Migraine Allergic rhinitis Mild intermittent asthma without complication Pure hypercholesterolemia Primary osteoarthritis of right hip Lumbar spondylosis Surgical History History of total hip arthroplasty (~08/15/23) S/P cystourethroscopy with dilation of urethral stricture (~07/21/20) History of esophagogastroduodenoscopy (EGD) Hx of unilateral oophorectomy Hx of colonoscopy Hx of cholecystectomy Hx of cystoscopy History of extraction of renal calculus History of carpal tunnel surgery History of hand surgery History of hysterectomy Family History Father Kidney problem Diabetes Mother Kidney malignancy Diabetes Brother Asthma Diabetes Social History Household Members: Spouse Housing: House Are you a primary home day care provider to a significant other at home: No Do you presently have visiting nurse or other home services: Yes Unable to assess alcohol history related to: Unknown Alcohol intake: never Comment: counts correct Patient Tobacco Use Status: Never used Tobacco e-Cigarette/Vaping Use: Never Used Second Hand Smoke Exposure: No Advance Directives Date on File: 08/08/23 service: No Current occupational status: disabled Cognitive needs: No Hearing needs: No Vision needs: Yes Review of Systems Const Denies weight gain and Denies weight loss ENT Reports no additional complaints, Denies dysphagia and Denies odynophagia Card Reports no additional complaints Resp Reports no additional complaints GI Reports abdominal pain (R&LUQ), Denies belching, Denies melena, Reports bloating, Denies change in bowel habits, Reports constipation, Denies dysphagia, Denies excessive flatus, Denies dyspepsia, Denies heartburn, Denies diarrhea, Reports loose stools, Denies nausea, Denies odynophagia and Denies vomiting Reports no additional complaints Musc Reports no additional complaints Neuro Reports no additional complaints Psych Reports no additional complaints Endo Reports no additional complaints Physical Exam Vital Signs: Last Vital Signs Pulse 70 06/06/24 15:37 BP 128/68 06/06/24 15:37 Pulse Ox 96 06/06/24 15:37 Oxygen Delivery Method Room Air 06/06/24 15:37 BMI result Body Mass Index 37.7 Const General: healthy appearing and no acute distress Nutritional Appearance: obese Orientation/consciousness: patient oriented x3 Resp Effort & Inspection: normal respiratory effort, able to speak in complete sentences, no tracheal deviation and symmetric chest movement Auscultation: clear to auscultation bilaterally Cardio Rate: regular rate GI Inspection: Yes normal to inspection, No distended and Yes obesity Palpation (GI): Soft to palpation, not firm, nontender and No hepatosplenomegaly present Auscultation: normal bowel sounds General: Yes no CVA tenderness Back/Spine/Pelvis Back: no CVA tenderness Skin General skin exam: elasticity normal, turgor normal and dry skin Neuro General: patient oriented x3 Psych Appearance: grossly normal Mental Status: mental status grossly normal Affect: normal affect Assessment & Plan Assessment & Plan (1) Constipation: Code(s): K59.00 - Constipation, unspecified Qualifiers: Constipation type: slow transit constipation Qualified Code(s): K59.01 - Slow transit constipation (2) IBS (irritable bowel syndrome): Code(s): K58.9 - Irritable bowel syndrome, unspecified Qualifiers: Irritable bowel syndrome type: with both diarrhea and constipation Qualified Code(s): K58.2 - Mixed irritable bowel syndrome (3) GERD (gastroesophageal reflux disease): Code(s): K21.9 - Gastro-esophageal reflux disease without esophagitis Qualifiers: Esophagitis presence: esophagitis presence not specified Qualified Code(s): K21.9 - Gastro-esophageal reflux disease without esophagitis (4) Postprandial abdominal bloating: Code(s): R14.0 - Abdominal distension (gaseous) (5) Nausea and vomiting in adult: Code(s): R11.2 - Nausea with vomiting, unspecified (6) Diarrhea: Code(s): R19.7 - Diarrhea, unspecified Qualifiers: Diarrhea type: functional diarrhea Qualified Code(s): K59.1 - Functional diarrhea Plan Continue avoiding dietary triggers and late night snacking. Continue pantoprazole in the morning and famotidine at bedtime. 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 Recommend low fat, low carb, high-fiber diet. May take [id number] fiber supplements. Patient will follow-up in the office in 4 months, sooner on as needed basis. She is agreeable to this plan and verbalizes understanding of instructions. She was given the opportunity to ask questions and all questions answered. Thank you for allowing me to participate in her care Coding Level of Care Code Est Pt Level 4 (17693) Complex EM visit Add On G2211 Diagnoses Slow transit constipation K59.01 Constipation type: slow transit constipation Irritable bowel syndrome with both constipation and diarrhea K58.2 Irritable bowel syndrome type: with both diarrhea and constipation Gastroesophageal reflux disease, unspecified whether esophagitis present K21.9 Esophagitis presence: esophagitis presence not specified Postprandial abdominal bloating R14.0 Nausea and vomiting in adult R11.2 Functional diarrhea K59.1 Diarrhea type: functional diarrhea Time Spent (min) 35 Comment 25 minutes spent with patient and additional 10 minutes spent reviewing her records
== END 2024-06-06 16:21 | disposition home or self-care (01) ==
LOC: HO.HGI 15:23
PROVIDERS: PCP Internal Medicine; Visit Provider Nurse Practitioner Family
DX: K59.01 Slow transit constipation (principal); K58.2 Mixed irritable bowel syndrome; K21.9 Gastro-esophageal reflux disease without esophagitis; R14.0 Abdominal distension (gaseous); R11.2 Nausea with vomiting, unspecified; K59.1 Functional diarrhea
CPT/HCPCS: 99214; G2211

== ENCOUNTER → 2024-06-06 15:23 | Outpatient (BNVA) | payer OTHER, SELFPAY | PROVIDERS: PCP Internal Medicine; Visit Provider Nurse Practitioner Family | DX: K58.2 Mixed irritable bowel syndrome (principal); K21.9 Gastro-esophageal reflux disease without esophagitis; K59.01 Slow transit constipation; K59.1 Functional diarrhea; R14.0 Abdominal distension (gaseous); R11.2 Nausea with vomiting, unspecified | CPT/HCPCS: 99212 ==

== ENCOUNTER 2024-06-13 13:30 | Outpatient (REF) | payer OTHER, SELFPAY ==
[2024-06-13 18:08] LABS: Influenza A PCR NEGATIVE (Negative); Influenza B PCR NEGATIVE (Negative); Resp Syncy Virus RNA Qual PCR NEGATIVE (Negative); SARS COV2 PCR INHOUSE NEGATIVE (Negative)
== END 2024-06-13 13:31 | disposition home or self-care (01) ==
LOC: HO.LAB 13:30
PROVIDERS: Physician Assistant; PCP Internal Medicine
DX: J06.9 Acute upper respiratory infection, unspecified (principal); B00.9 Herpesviral infection, unspecified
CPT/HCPCS: 0241U; 99212

== ENCOUNTER 2024-06-13 13:30 | Outpatient (AMB) | payer OTHER, SELFPAY ==
--- NOTE | 2024-06-13 13:45 | AM.OFFWIN_ITS ---
Intake Vital Signs 3 06/13/24 13:47 Weight 197 lb BP 110/78 Blood Pressure Location Rt brachial Position Sitting Pulse 80 Pulse Source Pulse Oximeter Temp 98.1 F Temp Source Oral Pulse Oximetry (%) 98 Oxygen Delivery Method Room Air Intake Visit Reasons: EP loss of voice, cough Intake Note: Patient here for loss of voice, cough, throat pain and cold sores that have been present for about 2-3 days. Patient Tobacco Use Status: Never used Tobacco Allergies hazelnut Allergy (Severe, Verified 06/13/24 13:48) Itching, coughing, and hives Penicillins [PENICILLINS] Allergy (Severe, Verified 06/13/24 13:48) HIVES Iodinated Contrast Media [IV CONTRAST] Allergy (Intermediate, Verified 06/13/24 13:48) HIVES peanut [PEANUTS] Allergy (Intermediate, Verified 06/13/24 13:48) HIVES shellfish derived [SHELLFISH DERIVED] Allergy (Intermediate, Verified 06/13/24 13:48) HIVES almond Allergy (Mild, Verified 06/13/24 13:48) Hives cat dander Allergy (Mild, Verified 06/13/24 13:48) cough/hives dog dander Allergy (Mild, Verified 06/13/24 13:48) cough/hives pollen extracts Allergy (Mild, Verified 06/13/24 13:48) runny nose, itchy eyes birch trees Allergy (Severe, Uncoded 06/13/24 13:48) Itching Do you need a note to return to daycare/school/sports/work: No HPI HPI Comments 2 History of Present Illness0 Details Patient is a 54-year-old female complaining of 2 days of a lost voice and 5 days of a dry cough, sore throat, slight ear pain and cold sores. She denies any head congestion, sinus pain, fevers, shortness of breath or wheezing. She states she is eating and drinking normally. She has tried taking Coricidin and Flonase with minimal relief in her symptoms. She does have a history of asthma but has not needed to use her rescue inhaler since she has been sick. She did test for COVID at home and it was negative. She tells me she did come in contact with her nephew 6 days ago who apparently was sick and diagnosed with walking pneumonia and required a Z-Marcos to feel better. She tells me she frequently gets cold sores when she is sick, she has to today on her upper lip and she is asking need to send valacyclovir to her pharmacy to treat them. [facility] Medical History (Updated 06/13/24 @ 14:19 by Ronda Pedro PA-C) Renal calculi Insomnia HLA-B27 spondyloarthropathy Osteoarthritis of multiple joints Hydronephrosis, bilateral Osteopenia Sacroiliac joint pain Encounter for medication monitoring Palpitations Gastritis Fibromyalgia Hx of small bowel obstruction Abdominal pain Obesity (BMI 30-39.9) Bipolar depression Vitamin D deficiency Migraine Allergic rhinitis Mild intermittent asthma without complication Pure hypercholesterolemia Primary osteoarthritis of right hip Lumbar spondylosis Surgical History History of total hip arthroplasty (~08/15/23) S/P cystourethroscopy with dilation of urethral stricture (~07/21/20) History of esophagogastroduodenoscopy (EGD) Hx of unilateral oophorectomy Hx of colonoscopy Hx of cholecystectomy Hx of cystoscopy History of extraction of renal calculus History of carpal tunnel surgery History of hand surgery History of hysterectomy Family History Father Kidney problem Diabetes Mother Kidney malignancy Diabetes Brother Asthma Diabetes Social History Household Members: Spouse Housing: House Are you a primary pet care worker to a significant other at home: No Do you presently have visiting nurse or other home services: Yes Unable to assess alcohol history related to: Unknown Alcohol intake: never Comment: counts correct Patient Tobacco Use Status: Never used Tobacco e-Cigarette/Vaping Use: Never Used Second Hand Smoke Exposure: No Advance Directives Date on File: 08/08/23 service: No Current occupational status: disabled Cognitive needs: No Hearing needs: No Vision needs: Yes Review of Systems Const All systems reviewed & are unremarkable except as noted in HPI and below Physical Exam Vital Signs: Last Vital Signs Temp 98.1 F 06/13/24 13:47 Pulse 80 06/13/24 13:47 BP 110/78 06/13/24 13:47 Pulse Ox 98 06/13/24 13:47 Oxygen Delivery Method Room Air 06/13/24 13:47 Const General: cooperative, healthy appearing, comfortable and no acute distress Orientation/consciousness: patient oriented x3 Limitations: no limitations HEENT Head: Yes normal to inspection Ears: hearing grossly normal bilaterally, external ears normal and unable to visualize TM (Cerumen ) bilaterally General nose exam: Normal external nose present, Normal nares present and No nasal discharge present Nose image: 2 1. Cold sore 2. Cold sore Face and sinus: Yes normal facial exam and Yes sinuses nontender Mouth: Normal oral and palatal mucosa present and moist mucous membranes Throat: Yes tonsils normal, Yes uvula midline and Yes posterior oropharynx abnormal (Erythema) Eyes General: appearance normal, both eyes and all related structures Neck Neck: Yes normal visual inspection Resp Effort & Inspection: normal respiratory effort, able to speak in complete sentences, Actively coughing, no respiratory distress, not tachypneic, no tripod positioning and no use of accessory muscles Auscultation: clear to auscultation bilaterally Cardio Rate: regular rate Rhythm: regular rhythm Heart sounds: normal S1 and S2 Skin General skin exam: no rashes or lesions noted Neuro General: patient oriented x3 Extrem General: Yes normal to inspection and Yes no clubbing, cyanosis or edema Assessment & Plan Assessment & Plan (1) Upper respiratory tract infection: Code(s): J06.9 - Acute upper respiratory infection, unspecified Qualifiers: URI type: unspecified URI Qualified Code(s): J06.9 - Acute upper respiratory infection, unspecified Plan: Vital signs are stable, patient is well-appearing in her lung sounds are clear. I did send a flu COVID and RSV test, this is likely a viral illness however, if the viral panel comes back negative, I did tell her I would send a Z-Marcos to her pharmacy since she did have an exposure to her nephew who required this medication to feel better. Recommended using [id number] medications to treat her symptoms. (2) HSV-1 (herpes simplex virus 1) infection: Code(s): B00.9 - Herpesviral infection, unspecified Plan: Sent valacyclovir to patient's pharmacy for her outbreak. Plan See above Orders: Orders 2 SARS-CoV2/FLU/RSV Today J06.9 - Acute upper respiratory infection, unspecified Medications: New 2 valacyclovir 2,000 mg (2 x 1 gram) PO ONCE 2 tabs 0RF Coding Level of Care Code Est Pt Level 3 (33920) Diagnoses Upper respiratory tract infection, unspecified type J06.9 URI type: unspecified URI HSV-1 (herpes simplex virus 1) infection B00.9
[2024-06-13 13:47] VITALS: BP 110/78; PULSE 80; TEMP 36.7; O2SAT 98
== END 2024-06-13 15:02 | disposition home or self-care (01) ==
PROVIDERS: PCP Internal Medicine; Visit Provider Physician Assistant
DX: J06.9 Acute upper respiratory infection, unspecified (principal); B00.9 Herpesviral infection, unspecified

== ENCOUNTER 2024-06-18 14:27 | Outpatient (AMB) | payer OTHER, SELFPAY ==
--- NOTE | 2024-06-18 14:31 | A.OFFVIS_ITS ---
Vital Signs 06/18/24 14:35 Height 5 ft Weight 194 lb 0.108 oz BMI 37.9 BP 124/72 Blood Pressure Location Rt brachial Position Sitting Pulse 79 Pulse Source Pulse Oximeter Pulse Oximetry (%) 98 Oxygen Delivery Method Room Air Intake Visit Reasons: FMS/CM Intake Note: Patient presents for FMS. Allergies hazelnut Allergy (Severe, Verified 06/18/24 14:34) Itching, coughing, and hives Penicillins [PENICILLINS] Allergy (Severe, Verified 06/18/24 14:34) HIVES Iodinated Contrast Media [IV CONTRAST] Allergy (Intermediate, Verified 06/18/24 14:34) HIVES peanut [PEANUTS] Allergy (Intermediate, Verified 06/18/24 14:34) HIVES shellfish derived [SHELLFISH DERIVED] Allergy (Intermediate, Verified 06/18/24 14:34) HIVES almond Allergy (Mild, Verified 06/18/24 14:34) Hives cat dander Allergy (Mild, Verified 06/18/24 14:34) cough/hives dog dander Allergy (Mild, Verified 06/18/24 14:34) cough/hives pollen extracts Allergy (Mild, Verified 06/18/24 14:34) runny nose, itchy eyes birch trees Allergy (Severe, Uncoded 06/13/24 13:48) Itching Medication List - Last Reconciled 06/18/24 by Johnnie Britt MD albuterol sulfate 90 mcg/actuation 2 puffs inhalation Q4-6H PRN atorvastatin 20 mg PO DAILY azithromycin For 250 mg dose pack: take 500 mg today (day 1), then 250 mg for 4 days (days 2-5) PO baclofen 20 mg PO BID 30 days bimatoprost 0.01% (Lumigan) 1 drp ophthalmic (eye) BEDTIME bupropion HCl XL 300 mg PO QAM cetirizine (Zyrtec) 10 mg PO DAILY PRN cholecalciferol (vitamin D3) 50 mcg PO DAILY clindamycin HCl 600 mg (2 x 300 mg) PO ONCE 1 day clonazepam (Klonopin) 1 mg PO BID cyclosporine 0.05% (Restasis) 1 drp ophthalmic (eye) Q12H docusate sodium 100 mg PO BID PRN dorzolamide-timolol 22.3-6.8 mg/mL 1 drp ophthalmic (eye) BID epinephrine 0.3 mg IM ONCE PRN famotidine 20 mg PO BEDTIME fluticasone propionate 220 mcg/actuation (Flovent HFA) 1 puff inhalation BID PRN fluticasone propionate 50 mcg/actuation 1 spray intranasal DAILY PRN gabapentin 800 mg PO Q8H 30 days magnesium oxide 400 mg PO BEDTIME 30 days mometasone 100 mcg/actuation (Asmanex HFA) 1 puff inhalation BID PRN montelukast (Singulair) 10 mg PO BEDTIME naloxone 4 mg/actuation (Narcan) 4 mg intranasal Q2M PRN naloxone 10 mg (0.4 mL) subcut Q2M omalizumab (Xolair) 150 mg subcut Q3W ondansetron 4 mg PO Q8H PRN pantoprazole 40 mg PO DAILY propranolol ER 60 mg PO BEDTIME 30 days riboflavin (vitamin B2) 400 mg PO DAILY 30 days [SHOWER CHAIR As directed] sumatriptan succinate 25 - 100 mg orally at onset of headache, may repeat in 2 hrs PRN; max 2 tabs per day or 4 tabs/week (may take with Ibuprofen or Tylenol) 30 days tramadol 50 mg PO BID valacyclovir 2,000 mg (2 x 1 gram) PO ONCE walker Folding Front wheeled walker zolpidem (Ambien) 10 mg PO BEDTIME PRN 30 days HPI Comments Details: 54-year-old female with fibromyalgia and osteoarthritis returns for follow-up. States that her right hip has been doing much better since her right hip replacement early this year. She states that her back pain however has been worse. She was recently evaluated by Dr. Jimmy piña and was told that they will request prior authorization for a set of injections. Continues to take tramadol 50 mg, mostly 2 tabs daily. Most recent history by Dr. Lou 07/2023: The patient returns for evaluation of her osteoarthritis and fibromyalgia. She again complains of pain in the right thigh, right groin, and buttock. This pain radiates down to the anterior right knee. There is also some low back pain and pain a little bit distal to the right knee as well. She has seen Orthopedics and they agree that surgical treatment would be appropriate so she has a hip replacement planned for August 15. Preoperative testing has been pursued. She remains on the tramadol 50 mg b.i.d. with questionable benefit, baclofen 20 b.i.d. p.r.n., bupropion, clonazepam, and duloxetine. She has some other pains in the neck, lower back, and hands but these are minimal compared to her hip pain. [facility] Medical History Renal calculi Insomnia HLA-B27 spondyloarthropathy Osteoarthritis of multiple joints Hydronephrosis, bilateral Osteopenia Sacroiliac joint pain Encounter for medication monitoring Palpitations Gastritis Fibromyalgia Hx of small bowel obstruction Abdominal pain Obesity (BMI 30-39.9) Bipolar depression Vitamin D deficiency Migraine Allergic rhinitis Mild intermittent asthma without complication Pure hypercholesterolemia Primary osteoarthritis of right hip Lumbar spondylosis Surgical History History of total hip arthroplasty (~08/15/23) S/P cystourethroscopy with dilation of urethral stricture (~07/21/20) History of esophagogastroduodenoscopy (EGD) Hx of unilateral oophorectomy Hx of colonoscopy Hx of cholecystectomy Hx of cystoscopy History of extraction of renal calculus History of carpal tunnel surgery History of hand surgery History of hysterectomy Family History Father Kidney problem Diabetes Mother Kidney malignancy Diabetes Brother Asthma Diabetes Social History Household Members: Spouse Housing: House Are you a primary administrator health care facility to a significant other at home: No Do you presently have visiting nurse or other home services: Yes Unable to assess alcohol history related to: Unknown Alcohol intake: never Comment: counts correct Patient Tobacco Use Status: Never used Tobacco e-Cigarette/Vaping Use: Never Used Second Hand Smoke Exposure: No Advance Directives Date on File: 08/08/23 service: No Current occupational status: disabled Cognitive needs: No Hearing needs: No Vision needs: Yes Review of Systems Musc Reports back pain and Reports arthralgias Physical Exam Vital Signs: Last Vital Signs Pulse 79 06/18/24 14:35 BP 124/72 06/18/24 14:35 Pulse Ox 98 06/18/24 14:35 Oxygen Delivery Method Room Air 06/18/24 14:35 BMI result Body Mass Index 37.9 Const General: cooperative, healthy appearing and comfortable Nutritional Appearance: obese morbidly obese Orientation/consciousness: patient oriented x3 Limitations: no limitations HEENT Head: Yes normocephalic and Yes atraumatic Mouth: moist mucous membranes Resp Effort & Inspection: normal respiratory effort and able to speak in complete sen tences Neuro General: patient oriented x3 Extrem Other: Few fibromyalgia tender points Bilateral lower lumbar paraspinal muscle tenderness No active synovitis Assessment & Plan Assessment & Plan (1) Encounter for medication monitoring: Comment: Tramadol pain contract updated 10/02/2022 Code(s): Z51.81 - Encounter for therapeutic drug level monitoring Category: Medical Plan: Patient still using 2 tabs of tramadol daily. Mostly for her degenerative arthritis of her spine. Tramadol refilled (2) Lumbar spondylosis: Comment: Humira 11/2017-12/2017 Methotrexate: 04/2019-07/2019 Sulfasalazine : 04/2019-07/2019 Code(s): M47.816 - Spondylosis without myelopathy or radiculopathy, lumbar region Category: Medical Plan: Previously diagnosed with a spondyloarthropathy.? Was on different DMARDs without improvement. Likely her symptoms are due to degenerative arthritis Plan I spent 22 minutes reviewing patient's chart, evaluating patient, placing orders, counseling patient and documenting in the chart Medications: New naloxone 4 mg/actuation (Narcan) spray 1 dose into ONE nostril; alternate nostrils w each dose until help arrives 4 mg intranasal Q2M PRN 2 ea 2RF opioid overdose Coding Level of Care Code Est Pt Level 3 (07982) Diagnoses Encounter for medication monitoring Z51.81 Lumbar spondylosis M47.816
[2024-06-18 14:35] VITALS: BP 124/72; PULSE 79; O2SAT 98; BMI 37.9
== END 2024-06-18 14:51 | disposition home or self-care (01) ==
PROVIDERS: PCP Internal Medicine; Visit Provider Student in an Organized Health Care Education/Training Program
DX: Z51.81 Encounter for therapeutic drug level monitoring (principal); M47.816 Spondylosis without myelopathy or radiculopathy, lumbar region
CPT/HCPCS: 99213

== ENCOUNTER → 2024-06-18 14:27 | Outpatient (BNVA) | payer OTHER, SELFPAY | PROVIDERS: PCP Internal Medicine; Visit Provider Student in an Organized Health Care Education/Training Program | DX: M79.7 Fibromyalgia (principal); M47.816 Spondylosis without myelopathy or radiculopathy, lumbar region; M19.90 Unspecified osteoarthritis, unspecified site; Z51.81 Encounter for therapeutic drug level monitoring; Z96.641 Presence of right artificial hip joint | CPT/HCPCS: 99212 ==

== ENCOUNTER 2024-08-20 14:44 | Outpatient (AMB) | payer OTHER, SELFPAY ==
[2024-08-20 15:04] VITALS: BP 122/70; PULSE 69; O2SAT 96; BMI 37.8
--- NOTE | 2024-08-20 15:04 | MHC.OFFVIS ---
Vital Signs 08/20/24 15:04 Height 5 ft Weight 193 lb 6 oz BMI 37.8 BP 122/70 Blood Pressure Location Lt brachial Position Sitting Pulse 69 Pulse Source Pulse Oximeter Pulse Oximetry (%) 96 Oxygen Delivery Method Room Air Intake Visit Reasons: Follow up Accompanied by: Self / Same As Patient Allergies hazelnut Allergy (Severe, Verified 08/20/24 15:06) Itching, coughing, and hives Penicillins [PENICILLINS] Allergy (Severe, Verified 08/20/24 15:06) HIVES Iodinated Contrast Media [IV CONTRAST] Allergy (Intermediate, Verified 08/20/24 15:06) HIVES peanut [PEANUTS] Allergy (Intermediate, Verified 08/20/24 15:06) HIVES shellfish derived [SHELLFISH DERIVED] Allergy (Intermediate, Verified 08/20/24 15:06) HIVES almond Allergy (Mild, Verified 08/20/24 15:06) Hives cat dander Allergy (Mild, Verified 08/20/24 15:06) cough/hives dog dander Allergy (Mild, Verified 08/20/24 15:06) cough/hives pollen extracts Allergy (Mild, Verified 08/20/24 15:06) runny nose, itchy eyes birch trees Allergy (Severe, Uncoded 06/13/24 13:48) Itching Medication List - Last Reconciled 08/20/24 by GIL Guerrero albuterol sulfate 90 mcg/actuation 2 puffs inhalation Q4-6H PRN atorvastatin 20 mg PO DAILY azithromycin For 250 mg dose pack: take 500 mg today (day 1), then 250 mg for 4 days (days 2-5) PO baclofen 20 mg PO BID 30 days bimatoprost 0.01% (Lumigan) 1 drp ophthalmic (eye) BEDTIME bupropion HCl XL 300 mg PO QAM cetirizine (Zyrtec) 10 mg PO DAILY PRN cholecalciferol (vitamin D3) 50 mcg PO DAILY clindamycin HCl 600 mg (2 x 300 mg) PO ONCE 1 day clonazepam (Klonopin) 1 mg PO BID cyclosporine 0.05% (Restasis) 1 drp ophthalmic (eye) Q12H docusate sodium 100 mg PO BID PRN dorzolamide-timolol 22.3-6.8 mg/mL 1 drp ophthalmic (eye) BID epinephrine 0.3 mg IM ONCE PRN famotidine 20 mg PO BEDTIME fluticasone propionate 220 mcg/actuation (Flovent HFA) 1 puff inhalation BID PRN fluticasone propionate 50 mcg/actuation 1 spray intranasal DAILY PRN gabapentin 800 mg PO Q8H 30 days magnesium chloride 64 mg PO BEDTIME 30 days magnesium oxide 400 mg PO BEDTIME 30 days mometasone 100 mcg/actuation (Asmanex HFA) 1 puff inhalation BID PRN montelukast (Singulair) 10 mg PO BEDTIME naloxone 4 mg/actuation (Narcan) 4 mg intranasal Q2M PRN naloxone 10 mg (0.4 mL) subcut Q2M omalizumab (Xolair) 150 mg subcut Q3W ondansetron 4 mg PO Q8H PRN pantoprazole 40 mg PO QAM propranolol ER 60 mg PO BEDTIME 30 days riboflavin (vitamin B2) 400 mg PO DAILY 30 days rimegepant (Nurtec ODT) 75 mg PO ONCE PRN 30 days MDD 1 tab [SHOWER CHAIR As directed] sumatriptan succinate 25 - 100 mg orally at onset of headache, may repeat in 2 hrs PRN; max 2 tabs per day or 4 tabs/week (may take with Ibuprofen or Tylenol) 30 days tramadol 50 mg PO BID valacyclovir 2,000 mg (2 x 1 gram) PO ONCE walker Folding Front wheeled walker zolpidem (Ambien) 10 mg PO BEDTIME PRN 30 days HPI Comments Details: Left handed 53-yr-old female presents for follow-up of migraine.. Pt reports in September she is scheduled to undergo cystoscopy for hydronephrosis, with urethral stricture, nephrolithiasis, in setting of history of pelvic radiation. HST- did not show sleep apnea, w/ O2 matt 85% w/ SpO2 < 88% x's 0.5 min, and SpO2 < 90% x's 27 minutes. Pt declined f/u in-lab PSG, as she has too many medical appointments going on at this time. She does note that she has been experiencing increased cold intolerance. States even when her heat is set to 75, she will have to bundle under blankets because she is shivering. Pt reports her migraines are the same. In the winter, she has 3-4 migraine attacks in the winter, and 5-6 attacks in the summer. She tried the Mag Oxide, however this caused facial redness and GI upset. She resumed taking Mag Chloride 520mg (62 mg of elemental magnesium). She did increased dose of Riboflavin to 400mg qam- tolerating that ok. She did not try the Propranolol ER as she was worried about taking too many medications. She tried Sumatriptan but this caused palpitations and strange feeling. 01/16/24, Initial HPI: Pt reports she has had migraines since she was 19-20 yrs old w/o known preceding causes. She comes to establish care w/ new neurologist since her previous neurologist, Yeison PIERCE retired a few years ago. Though has been seen by [facility] neuro since. PMH and ROS are notable for:? Musculoskeletal disorders or injury: OA, neck/back/joint pain, h/o T10-T11 compression fx, right hip THR. fibromyalgia Cramps: sometimes History of concussion/head injury: was struck in the head by a loose baseball at age 3 months- was hospitalized for several days- but denies residual affects. Mood d/o: Anxiety, Depression, Bilpolar d/o Respiratory d/o: Asthma CV disease: HLD- varies, has lipids checked q 4 months : recurrent kidney stones GI d/o: Constipation or Diarhea- f/b GI [employer] INSPECTOR: Cervical cancer at age 27 (in 1997)- was tx'd 1 ovary sparing hysterectomy and radiation tx. Pertinent denials include: History of concussion/head injury, Sleep d/o, Respiratory d/o, Clotting or hematology d/o, Endocrine or metabolic d/o, History of seizure, syncope, or drop attacks Family history of migraine or other headache disorder Lifestyle considerations: Sleep routine: Usual bedtime: 1-2am and wake-up time: 9-10am Sleep difficulties: Endorses: some difficulty falling asleep or maintaining sleep, Fatigue, Leg Cramps Caffeine use: none Substance use: none Exercise:?trying to exercise, is doing home PT exercises Employment:?disabled Headache questionnaire:? Typical headache characteristics: Prodrome symptoms: none Aura: briefly sees wiggly things, feels dizzy, black dots Pain intensity: severe Location, quality, characteristics: May start mid-frontal or left temporal, and alida retro-orbital Associated symptoms: photophobia, phonophobia, osmophobia, allodynia, nausea, vomiting- sometimes when severe, spinning dizziness, lightheadedness, fatigue, cognitive difficulties, activity intoelrence, standing up worsens headcahe and associated s/s. alida jaw tingling- at times. Postdrome: sometimes lingers into the next Triggers: poor fluid intake,hunger, salty foods, sounds, odors- certain perfumes, too much sun or heat, stress Time of day: No specific time of day Duration and Frequency: 5 migraine attacks per month- which last 1-2 days. How does headache impact your life? Makes it difficult to do her daily activities Current acute medication use/interventions: Naratriptan 2.5mg - causes palpitations. Current preventative medication use: Riboflavin 100mg tid Non-pharmacological interventions: Ice and rest, uses distraction techniques. [facility] Medical History Renal calculi Insomnia HLA-B27 spondyloarthropathy Osteoarthritis of multiple joints Hydronephrosis, bilateral Osteopenia Sacroiliac joint pain Encounter for medication monitoring Palpitations Gastritis Fibromyalgia Hx of small bowel obstruction Abdominal pain Obesity (BMI 30-39.9) Bipolar depression Vitamin D deficiency Migraine Allergic rhinitis Mild intermittent asthma without complication Pure hypercholesterolemia Primary osteoarthritis of right hip Lumbar spondylosis Surgical History History of total hip arthroplasty (~08/15/23) S/P cystourethroscopy with dilation of urethral stricture (~07/21/20) History of esophagogastroduodenoscopy (EGD) Hx of unilateral oophorectomy Hx of colonoscopy Hx of cholecystectomy Hx of cystoscopy History of extraction of renal calculus History of carpal tunnel surgery History of hand surgery History of hysterectomy Family History Father Kidney problem Diabetes Mother Kidney malignancy Diabetes Brother Asthma Diabetes Social History Household Members: Spouse Housing: House Are you a primary vision care associate to a significant other at home: No Do you presently have visiting nurse or other home services: Yes Unable to assess alcohol history related to: Unknown Alcohol intake: never Comment: counts correct Patient Tobacco Use Status: Never used Tobacco e-Cigarette/Vaping Use: Never Used Second Hand Smoke Exposure: No Advance Directives Date on File: 08/08/23 service: No Current occupational status: disabled Cognitive needs: No Hearing needs: No Vision needs: Yes Physical Exam Vital Signs: Last Vital Signs Pulse 69 08/20/24 15:04 BP 122/70 08/20/24 15:04 Pulse Ox 96 08/20/24 15:04 Oxygen Delivery Method Room Air 08/20/24 15:04 BMI result Body Mass Index 37.8 Const Orientation/consciousness: patient oriented x3 HEENT Head: Yes normocephalic Resp Effort & Inspection: normal respiratory effort and able to speak in complete sentences Neuro General: patient oriented x3 Cranial nerves: Yes CN's II-XII intact bilaterally Cognition (Neuro): normal cognition Gait exam (Neuro): Normal gait present Motor exam (neuro): 5/5 motor strength present throughout Psych Appearance: grossly normal Mental Status: mental status grossly normal Speech and movement: Normal speech and movement present Affect: normal affect Attitude: cooperative Thought process: Normal thought process present Assessment & Plan Assessment & Plan (1) Migraine with aura: Code(s): G43.109 - Migraine with aura, not intractable, without status migrainosus Category: Medical (2) Fatigue: Code(s): R53.83 - Other fatigue Category: Medical (3) Snoring: Code(s): R06.83 - Snoring Category: Medical (4) Sleep difficulties: Code(s): G47.9 - Sleep disorder, unspecified Category: Medical (5) Cold intolerance: Code(s): R68.89 - Other general symptoms and signs Category: Medical Plan Reviewed HST- no current evidence of sleep apnea, however SpO2 was under 90% for 27 minutes of study time, though under 88% for under 1 minute of study time. Thus, encouraged patient to consider undergoing follow-up in-lab sleep study, which she will consider in follow-up. In the meantime, we will check fasting labs for underlying causes of hypoxemia and cold intolerance, as patient has a history of anemia. For overall headache management: Optimize good self-care, including but not limited to maintaining a healthy diet, adequate fluid intake, adequate sleep, and engaging in regular physical activity. Track headaches, especially after any treatment regimen changes. Migraine [employer] is one of many headache tracking apps. For acute headache treatment: Discussed importance of taking acute medications at the first sign of headache, however stressed importance of avoiding acute medication overuse (especially with combined headache medications). Stop Sumatriptan 25-100mg prn- not tolerated. Continue Zofran 4mg prn N/V/migraine. Trial Rimegepant ODT (Nurtec ODT) 75mg, 1 tab at onset of headache.. Max of 1 tabs (75mg) per 24 hours. May adjunct with OTC Tylenol 650mg q 4 hours, Ibuprofen 600mg q 6 hours, or Naproxen 440mg q 12 hrs prn. Potential adverse effects, include but are not limited to fatigue, nausea, dry mouth, constipation. Previous acute migraine medication trials: Excedrin. Naratriptan- causes palpitations. Sumatriptan-caused palpitations and strange sensations. Acute migraine medication contraindications: None at this time For headache prevention medication: Preventative medications should be taken routinely as prescribed for best effect, it may take several weeks for full effect to take effect. Increase/adjust Riboflavin to: Riboflavin 400mg qam Continue Magnesium chloride, refilled as magnesium chloride 64 mg q.h.s.. Hold Propranolol Er 60mg qhs- patient hesitant to trial. Instead, trial propranolol 10 mg p.o. b.i.d. Potential adverse effects of betablockers, including but not limited to fatigue, hypotension, slow heart rate, mood changes, respiratory changes. Previous migraine prevention medication trials: None other. Migraine prevention medication contraindications: Beta-blockers d/t asthma dx. Will follow-up upon review of above and patient to follow-up in clinic in 6 months or sooner prn. Orders: Orders IRON PROFILE Today D64.9 - Anemia, unspecified, R68.89 - Other general symptoms and signs Vitamin B12 and Folate Today D64.9 - Anemia, unspecified, R68.89 - Other general symptoms and signs Complete Blood Count Auto Diff Today D64.9 - Anemia, unspecified, R68.89 - Other general symptoms and signs Ferritin Today D64.9 - Anemia, unspecified, R68.89 - Other general symptoms and signs Hemoglobin A1c Today D64.9 - Anemia, unspecified, R68.89 - Other general symptoms and signs Homocysteine Today D64.9 - Anemia, unspecified, R68.89 - Other general symptoms and signs TSH reflex Free T4 Today D64.9 - Anemia, unspecified, R68.89 - Other general symptoms and signs Vitamin B6 Today D64.9 - Anemia, unspecified, R68.89 - Other general symptoms and signs Medications: New magnesium chloride 64 mg PO BEDTIME 30 days 30 tabs 6RF rimegepant (Nurtec ODT) 75 mg PO ONCE 30 days PRN 16 tabs 3RF migraine headache MDD 1 tab Coding Level of Care Code Est Pt Level 4 (77778) Diagnoses Migraine with aura G43.109 Fatigue R53.83 Snoring R06.83 Sleep difficulties G47.9 Cold intolerance R68.89
== END 2024-08-20 16:01 | disposition home or self-care (01) ==
PROVIDERS: PCP Internal Medicine; Visit Provider Nurse Practitioner Family
DX: G43.109 Migraine with aura, not intractable, without status migrainosus (principal); R53.83 Other fatigue; R06.83 Snoring; G47.9 Sleep disorder, unspecified; R68.89 Other general symptoms and signs
CPT/HCPCS: 99214

== ENCOUNTER → 2024-08-20 14:44 | Outpatient (BNVA) | payer OTHER, SELFPAY | PROVIDERS: PCP Internal Medicine; Visit Provider Nurse Practitioner Family | DX: G43.109 Migraine with aura, not intractable, without status migrainosus (principal); R53.83 Other fatigue; R06.83 Snoring; R68.89 Other general symptoms and signs; D64.9 Anemia, unspecified | CPT/HCPCS: 99212 ==

== ENCOUNTER 2024-10-03 12:10 | Outpatient (REF) | payer OTHER, SELFPAY ==
[2024-10-03 12:25] LABS: MANUAL DIFF FLAG NO
[2024-10-03 12:41] LABS: Basophils Percent Auto 0.5 % (0-2); Eosinophils Absolute Auto 0.3 X10*3/uL (0.0-0.4); Eosinophils Percent Auto 3.2 % (0-4); Hematocrit 37.3 % (37.0-47.0); Hemoglobin 11.7 g/dl (12.0-16.0); Imm Gran Abs Auto 0.04 X10*3/uL (0.00-0.03); Imm Gran Pct Auto 0.5 % (0.0-0.4); Lymphocytes Absolute Auto 1.3 X10*3/uL (1.2-4.9); Lymphocytes Percent Auto 14.8 % (20-40); Mean Corpuscular HGB Conc 31.4 g/dl (31.0-35.0); Mean Corpuscular Hemoglobin 27.2 pg (27.0-33.0); Mean Corpuscular Volume 86.7 fL (80.0-98.0); Monocytes Absolute Auto 0.4 X10*3/uL (0.1-1.2); Monocytes Percent Auto 4.4 % (2-11); Neutrophils Absolute Auto 6.6 x10*3/uL (2.0-8.3); Neutrophils Percent Auto 76.6 % (45-73); Platelet Count 375 X10*3/uL (160-400); Red Cell Distribution Width 14.6 % (11.0-16.0); White Blood Count 8.6 X10*3/uL (4.8-10.8)
[2024-10-03 12:50] LABS: Estimated Average Glucose 105 mg/dL; Hemoglobin A1C 105.2335 umol/L; Hemoglobin A1c % 5.3 % (<6.0); Total Hemoglobin (HGBA1C) 3068.5086 umol/L
[2024-10-03 13:23] LABS: Alanine Aminotransferase 17 U/L (0-31); Albumin Level 4.1 g/dL (3.5-5.0); Alkaline Phosphatase 82 U/L (39-117); Anion Gap 12 (12-20); Aspartate Amino Transferase 18 U/L (5-31); Bilirubin Total 0.6 mg/dL (0.0-1.0); Blood Urea Nitrogen 12 mg/dL (9-16); Calcium 9.2 mg/dL (8.4-10.2); Carbon Dioxide 23 mmol/L (22-29); Chloride 111 mmol/L (96-108); Cholesterol 214 mg/dL (<200); Estimated Glomerular Filt Rate > 60; Glucose Fasting 85 mg/dL (60-99); HDL Cholesterol 45 mg/dL (>40); Iron 60 mcg/dL (30-160); LDL Cholesterol Calculated 118 mg/dL (<100); Percent Iron Saturation 18 % (15-50); Potassium 4.3 mmol/L (3.3-5.1); Sodium 142 mmol/L (135-145); Total Iron Binding Capacity 332 mcg/dL (228-428); Total Protein 7.8 g/dL (6.5-8.0); Triglycerides 258 mg/dL (<150); Unsaturated Iron Binding 272 ug/dL
[2024-10-03 13:29] LABS: Ferritin 66 ng/mL (10-250); TSH reflex Free T4 1.16 uIU/mL (0.32-4.0)
[2024-10-03 13:41] LABS: TSH reflex Free T4 1.19 uIU/mL (0.32-4.0); Vitamin D 25-OH Total 42.8 ng/mL (>30)
[2024-10-03 13:43] LABS: Vitamin B12 204 pg/mL (200-900)
--- OUTSIDE RECORDS SUMMARY | 2024-10-03 14:25 | XMS_ITS | Clinical Summary ---
Author Organization [facility] Address [address] [place] [address] Phone Care Team Providers Care Regulatory Affairs Manager Name Role Phone Christ Silva MD Primary Care Provider [phone] Allergies No known active allergies Social History Tobacco Use Types Packs/Day Years Used Date Smoking Tobacco: Never Assessed Comments Unknown Sex and Gender Information Value Date Recorded Sex Assigned at Not on file Legal Sex Female 11:45 PM EST Gender Identity Not on file Sexual Orientation Not on file Plan of Treatment Health Maintenance Due Date Last Done Comments Hepatitis B Vaccines (1 of 3 - 19+ 3-dose series) 1990 Cervical Cancer Screening: Pap Smear 02/18/1992 Breast Cancer Screening 12/20/2022 12/21/19, 08/22/2019, 03/28/2018 COVID-19 Vaccine ( season) 2024 12/26/2021, 07/11/2021, 11/21/2020, Additional history exists Cholesterol Screening (Lipid Panel) 05/24/2024 Colorectal Cancer Screening: Colonoscopy 05/24/2024 Depression Screening 05/24/2024 HIV Screening 05/24/2024 Hepatitis C Screening 05/24/2024 Social Influencers of Health Screening 05/24/2024 DTaP,Tdap,and Td Vaccines (2 - Td or Tdap) 05/03/2026 05/03/2016 Zoster Vaccines Completed 05/04/2021, 03/02/2021 Influenza Vaccine Completed 06/24/2024, , 07/27/2022, Additional history exists Pneumococcal Vaccine: 50+ Years Completed 06/24/2024, 07/05/2018, 04/09/2017 Pneumococcal Vaccine: Pediatrics (0 to 5 Years) and At-Risk Patients (6 to 64 Years) Completed 06/24/2024, 07/05/2018, 04/09/2017 HIB Vaccines Aged Out No longer eligi ble based on patient's age to complete this topic HPV Vaccines Aged Out No longer eligi ble based on patient's age to complete this topic Hepatitis A Vaccines Aged Out No long er eligible based on patient's age to complete this topic IPV Vaccines Aged Out No longer eligi ble based on patient's age to complete this topic MMR Vaccines Aged Out No longer eligi ble based on patient's age to complete this topic Meningococcal ACWY Vaccine Aged Out N o longer eligible based on patient's age to complete this topic Meningococcal B Vacine Aged Out No lo nger eligible based on patient's age to complete this topic RSV Immunization Patients Under 20 months Aged Out No longer eligible based on patient's age to complete this topic Varicella Vaccines Aged Out No longer eligible based on patient's age to complete this topic Procedures Procedure Name Priority Date/Time Associated Diagnosis Comments [facility] SCREENING DIGITAL Routine 12/20/2020 7:17 PM EDT Encounter for screening mammogram for malignant neoplasm of breast from Last 3 Months or Most Recently Relevant to Health Maintenance Results * [facility] SCREENING DIGITAL (12/20/2020 7:17 PM EDT) Anatomical Region Laterality Modality Mammography 12/20/2020 2:13 PM EDT Narrative 12/20/2020 7:17 PM EDT [facility] Diagnostic Imaging Department [address] [place] [address] [id number] Patient: ??ELISHA MILLS ?/Age/Sex: 1970 - 50 - F Unit#: ??[id number] ? Location/Status: ??SPDIMAM/REG CLI ? Mnemonic/Ordering Site: ??DIGSC/SPMAM Ordering Physician: ??CHRIST SILVA MD Leroy Screening Digital - 12/20/20 - 1508 History: Bilateral breast cancer screening. Technique: Digital mammography. Conventional CC and MLO projections with tomosynthesis MLO views and computer aided detection Findings: Comparison:[facility] 08/21/2019, dating back to 03/09/2011. Breast tissue is mostly fatty replaced (category a density) bilaterally (as calculated by [employer] software). There are benign calcifications on the right. ?? There is no suspicious group of microcalcification, no suspicious mass, architectural distortion or suspicious asymmetry. Impression: ??No evidence of malignancy. BIRADS category 2, benign findings, 3342F [id number], [id number] Note: Patient information entered ??into a reminder system with a target due date for the next mammogram; PQRI II 6624F Dictating Physician: ??MIKEY ROMAN MD Electronically Signed by: ??MIKEY ROMAN MD Dic Date/Time: ??12/20/201916 Sign date/Time: ??12/20/201916 Procedure Note Mikey Roman MD - 07/25/2022 [facility] Diagnostic Imaging Department [address] [place] [address] Patient: SE MILLSICE /Age/Sex: 1970 - 50 - F Unit#: [id number] Location/Status: SPDIMAM/REG CLI Mnemonic/Ordering Site: DIGDE/[facility] Ordering Physician: CHRIST SILVA MD Leroy Screening Digital - 12/20/20 - 1508 History: Bilateral breast cancer screening. Technique: Digital mammography. Conventional CC and MLO projections with tomosynthesis MLO views and computer aided detection Findings: Comparison:[facility] 08/21/2019, dating back to 03/09/2011. Breast tissue is mostly fatty replaced (category a density) bilaterally(as calculated by [employer] software). There are benign calcificationson the right. There is no suspicious group of microcalcification, no suspiciousmass, architectural distortion or suspicious asymmetry. Impression: No evidence of malignancy. BIRADS category 2, benign findings, 3342F [id number], [id number] Note: Patient information entered into a reminder system with a targetdue date for the next mammogram; PQRI II 7062F Dictating Physician: MIKEY ROMAN MD Electronically Signed by: MIKEY ROMAN MD Dic Date/Time: 12/20/201916 Sign date/Time: 12/20/201916 Christ Silva MD IMG BI PROCEDURES Final Resu lt from Last 3 Months or Most Recently Relevant to Health Maintenance Insurance MEDICAID - [place] Care Teams Regulatory Affairs Manager Relationship Specialty Start Date End Date Christ Silva MD [address] [place] PCP - General Internal Medicine 07/01/24
--- OUTSIDE RECORDS SUMMARY | 2024-10-03 14:25 | XMS_ITS | Clinical Summary ---
Author Organization [facility] Address [address] [place] [address] Care Team Providers Care Supervisor Pleating Name Role Phone Teresa Vega PA-C Primary Care Provider [phone] Source Comments PLEASE NOTE, if this patient is a minor, it may be UNLAWFUL to discuss sensitive information that is contained in these records (such as FAMILY PLANNING, MENTAL HEALTH or SUBSTANCE ABUSE) with the minor patient's parent or other person without the patient's specific authorization.[facility] Allergies Active Allergy Reactions Criticality Noted Date Comments Penicillins 04/15/2013 Medications clonazePAM (KLONOPIN) 1 mg tablet Take 1 mg by mouth 2 (two) times daily as needed. Active zolpidem (AMBIEN) 10 mg tablet Take 10 mg by mouth nightly at bedtime as needed. Take immediately before bedtime. Active estradiol (ESTRACE) 0.5 mg tablet Take 0.5 mg by mouth once daily. Active loperamide (IMODIUM A-D) 2 mg capsuleIndicati ons:diarrhea Take 2 mg by mouth 1 to 3 (one to three) times daily as needed. Do not take more than 4 capsules daily. Indications: Diarrhea Active calcium carbonate 600 mg (1,500 mg) tabletIndicatio ns:Osteopenia Take 1 Tab by mouth 2 (two) times daily. 60 Tab 3 3 Active ergocalciferol, vitamin D2, (VITAMIN D2) 50,000 unit capsuleIndicati ons:Vitamin D deficiency Take 1 Cap by mouth once a week. 4 Cap 3 3 Active simvastatin (ZOCOR) 20 mg tabletIndicatio ns:HLD (hyperlipidemia ) Take 1 Tab by mouth nightly at bedtime. 30 Tab 3 3 Active traMADol (ULTRAM) 50 mg tabletIndicatio ns:Chronic LBP Take 1 Tab by mouth 1 to 2 (one to two) times daily as needed for pain. 60 Tab 3 3 Active loratadine-pseu doephedrine (CLARITIN-D 12-HOUR) 5-120 mg per 12 hr tabletIndicatio ns:Seasonal allergies Take 1 Tab by mouth every 12 (twelve) hours. Swallow whole. Do not crush or chew. 30 Tab 3 4 Active naratriptan (AMERGE) 2.5 mg tabletIndicatio ns:migraine Take 1 Tab by mouth once as needed for migraine. Take 1 tablet at onset of headache. May repeat once in 4 hours if needed. Do not take more than 2 tablets in 24 hours. Indications: Migraine 9 Tab 1 4 Active citalopram (CELEXA) 10 mg tablet Take 10 mg by mouth every morning. 1 4 Active rizatriptan (MAXALT) 10 mg tablet 0 4 Active orphenadrine (NORFLEX ER) 100 mg 12 hr tabletIndicatio ns:Back pain, chronic Take 1 Tab by mouth 2 (two) times daily. Swallow whole. Do not crush or chew. 60 Tab 3 5 Active lidocaine 5 % ointIndications :Chronic low back pain Apply 1 Units topically every 12 (twelve) hours. 2 Tube 6 5 Active fluticasone (FLONASE) 50 mcg/actuation nasal sprayIndication s:Seasonal allergies Place 1 [place] into the nostril(s) once daily. 16 g 6 5 Active vitamin D 2,000 unit tabletIndicatio ns:Vitamin D deficiency disease Take 1 Tab by mouth once daily. 30 Tab 6 5 Active fluticasone (FLOVENT HFA) 220 mcg/actuation inhalerIndicati ons:asthma prevention Inhale 2 Puffs into the lungs 2 (two) times daily. Indications: Asthma Prevention 1 Inhaler 6 5 Active albuterol sulfate hfa (PROAIR HFA) 90 mcg/actuation inhaler Inhale 2 Puffs into the lungs every 6 (six) hours as needed for shortness of breath or wheezing. 18 g 6 5 Active loratadine (CLARITIN) 10 mg tabletIndicatio ns:Seasonal allergies Take 1 Tab by mouth once daily as needed for allergies. 30 Tab 6 5 Active triamcinolone (KENALOG) 0.5 % creamIndication s:Flexural eczema Apply topically 2 (two) times daily. 15 g 3 5 Active Active Problems Problem Noted Date Diagnosed Date Urethral stricture and hemat uria s/p dilation and cystoscopy 10/2014 Dr. Briones 10/21/2014 Nephrolithiasis 08/19/2014 Overview (02/15/2015): Follows at [facility] Lt ureteroscopy with manipulation of lt renal stone and stent placed at [facility] January 27 2015 S/P unilateral salpingo-oophorectomy. 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 at [facility] Sp Hysterectomy, had +nodes, received chemo and radiation On Estrogen She has persistent ovarian cyst and will undergo resection around April: explorat laparotomy, biopsy, etc Migraine headache 01/26/2014 Overview (01/26/2014): Has seen [facility] Neuro Prescribed IC NAratriptan HCL 2.5mg HLD (hyperlipidemia) 05/14/2013 Vitamin D deficiency disease 05/14/2013 Chronic low back pain 05/14/2013 Overview (01/26/2014): Used to see rheumat at the [facility] Then she was seen and treated by [facility] Currently has no one following her back pain She does exercises at home and uses a TENs unit Pain is there, worse after the exercises or any activities above her usual. Asthma exacerbation Bipolar 1 disorder ([facility]) Overview (01/26/2014): Follows with Psych: Benitez Nick MD at [address] [place] [address] On: Celexa, Ambien and Klonopin Resolved Problems Problem Noted Date Diagnosed Date Resolved Date Anxiety 01/26/2014 Gallstone 01/26/2014 Immunizations Name Administration Dates Next Due INFLUENZA, SEASONAL, INJECTABLE 05/31/2015,08/19 INFLUENZA, SEASONAL, INJECTABLE, PRESERVATIVE FR EE 05/14/2013 Family History Medical History Relation Name Comments Diabetes Father Cancer Maternal Grandmother Cancer Mother Diabetes Mother Relation Name Status Comments Father Maternal Grandmother Mother Social History Tobacco Use Types Packs/Day Years Used Date Smoking Tobacco: Never Alcohol Use Standard Drinks/Week Comments No 0 (1 standard drink = 0.6 oz pur e alcohol) Social Connections Answer Date Recorded Social Connections and Isolation 0 03/29/2019 Financial Resource Strain Answer Date R ecorded Financial Resource Strain 0 2018 Stress Answer Date Recorded Stress 0 03/29/2019 Physical Activity Answer Date Recorded Physical Activity 0 03/29/2019 Food Insecurity Answer Date Recorded Food 0 03/29/2019 Transportation Needs Answer Date Record ed Transportation 0 03/29/2019 Housing Stability Answer Date Recorded Housing 0 03/29/2019 Safety and Environment Answer Date Delmer rded Safety 0 03/29/2019 Utilities Answer Date Recorded Utilities 0 03/29/2019 Employment Answer Date Recorded Employment 0 03/29/2019 Comments No Sex and Gender Information Value Date Recorded Sex Assigned at Not on file Legal Sex Female 11:36 AM PDT Gender Identity Not on file Sexual Orientation Not on file Last Filed Vital Signs Vital Sign [place] Time Taken Comments Blood Pressure 124/72 03/16/2016 2:34 PM EDT Pulse 72 03/16/2016 2:34 PM EDT Temperature 36.7 ??C (98 ??F) 03/16/2016 2:34 PM EDT Respiratory Rate 16 03/16/2016 2:34 PM EDT Oxygen Saturation - - Inhaled Oxygen Concentration - - Weight 97.7 kg (215 lb 4.8 oz) 03/16/2016 2:34 P M EDT Height 149.9 cm (4' 11 ) 03/16/2016 2:34 PM EDT Body Mass Index 43.49 03/16/2016 2:34 PM EDT Plan of Treatment Not on file Insurance [place] MEDICAID Care Teams Supervisor Pleating Relationship Specialty Start Date End Date Teresa Vega PA-C [address] [place] [address] PCP - General 10/01/18
[2024-10-06 19:03] LABS: Homocysteine 16.4 umol/L (<10.4)
[2024-10-08 06:44] LABS: Vitamin B6 4.1 ng/mL (2.1-21.7)
== END 2024-10-03 12:11 | disposition home or self-care (01) ==
LOC: HO.LAB 12:10
PROVIDERS: Absent Provider Nurse Practitioner Family; PCP Internal Medicine; Visit Provider Internal Medicine
DX: D64.9 Anemia, unspecified (principal); R68.89 Other general symptoms and signs; E55.9 Vitamin D deficiency, unspecified; E78.00 Pure hypercholesterolemia, unspecified
CPT/HCPCS: 36415; 80053; 80061; 82306; 82607; 82728; 82746; 83036; 83090; 83540; 84207; 84443; 85025

== ENCOUNTER 2024-10-06 14:34 | Outpatient (AMB) | payer OTHER, SELFPAY ==
[2024-10-06 14:56] VITALS: BP 128/74; PULSE 86; O2SAT 98; BMI 37.0
--- NOTE | 2024-10-06 14:56 | A.OFFPC_ITS ---
Vital Signs 10/06/24 14:56 Height 5 ft Weight 189 lb 8 oz BMI 37.0 BP 128/74 Blood Pressure Location Lt brachial Position Sitting Pulse 86 Pulse Source Pulse Oximeter Pulse Oximetry (%) 98 Oxygen Delivery Method Room Air Intake Visit Reasons: Annual Exam Clinical Implementation Specialist Required: No Accompanied by: Self / Same As Patient Allergies hazelnut Allergy (Severe, Verified 10/06/24 15:27) Itching, coughing, and hives Penicillins [PENICILLINS] Allergy (Severe, Verified 10/06/24 15:27) HIVES Iodinated Contrast Media [IV CONTRAST] Allergy (Intermediate, Verified 10/06/24 15:27) HIVES peanut [PEANUTS] Allergy (Intermediate, Verified 10/06/24 15:27) HIVES shellfish derived [SHELLFISH DERIVED] Allergy (Intermediate, Verified 10/06/24 15:27) HIVES almond Allergy (Mild, Verified 10/06/24 15:27) Hives cat dander Allergy (Mild, Verified 10/06/24 15:27) cough/hives dog dander Allergy (Mild, Verified 10/06/24 15:27) cough/hives pollen extracts Allergy (Mild, Verified 10/06/24 15:27) runny nose, itchy eyes birch trees Allergy (Severe, Uncoded 10/06/24 15:27) Itching Medication List - Last Reconciled 10/06/24 by Christ Goodwin MD albuterol sulfate 90 mcg/actuation 2 puffs inhalation Q4-6H PRN atorvastatin 20 mg PO DAILY baclofen 20 mg PO BID 30 days bimatoprost 0.01% (Lumigan) 1 drp ophthalmic (eye) BEDTIME bupropion HCl XL 300 mg PO QAM cetirizine (Zyrtec) 10 mg PO DAILY PRN cholecalciferol (vitamin D3) 50 mcg PO DAILY clindamycin HCl 600 mg (2 x 300 mg) PO ONCE 1 day clonazepam (Klonopin) 1 mg PO BID cyclosporine 0.05% (Restasis) 1 drp ophthalmic (eye) Q12H docusate sodium 100 mg PO BID PRN dorzolamide-timolol 22.3-6.8 mg/mL 1 drp ophthalmic (eye) BID epinephrine 0.3 mg IM ONCE PRN famotidine 20 mg PO BEDTIME fluticasone propionate 220 mcg/actuation (Flovent HFA) 1 puff inhalation BID PRN fluticasone propionate 50 mcg/actuation 1 spray intranasal DAILY PRN gabapentin 800 mg PO Q8H 30 days magnesium chloride 64 mg PO BEDTIME 30 days magnesium oxide 400 mg PO BEDTIME 30 days mometasone 100 mcg/actuation (Asmanex HFA) 1 puff inhalation BID PRN montelukast (Singulair) 10 mg PO BEDTIME naloxone 4 mg/actuation (Narcan) 4 mg intranasal Q2M PRN naloxone 10 mg (0.4 mL) subcut Q2M omalizumab (Xolair) 150 mg subcut Q3W ondansetron 4 mg PO Q8H PRN pantoprazole 40 mg PO QAM propranolol ER 60 mg PO BEDTIME 30 days riboflavin (vitamin B2) 400 mg PO DAILY 30 days rimegepant (Nurtec ODT) 75 mg PO ONCE PRN 30 days MDD 1 tab [SHOWER CHAIR As directed] sumatriptan succinate 25 - 100 mg orally at onset of headache, may repeat in 2 hrs PRN; max 2 tabs per day or 4 tabs/week (may take with Ibuprofen or Tylenol) 30 days tramadol 50 mg PO BID valacyclovir 2,000 mg (2 x 1 gram) PO ONCE walker Folding Front wheeled walker zolpidem (Ambien) 10 mg PO BEDTIME PRN 30 days Tobacco use date assessed: 10/06/24 Dental Screening Dental Screen Date: 10/06/24 Did you have a dental visit in the last 12 months?: Yes Did you have a dental problem in the last 6 months where you did not have access to dental care?: No Was dental information given to patient?: Patient has dentist HPI Annual Exam HPI Details Patient comes in today for her annual physical examination States that she is currently still having a lot of issues with kidney stones She has kidney stone disease with multiple nonobstructing stones in the right kidney, measuring up to 7 mm She was previously taking potassium citrate for her kidney stones but self- discontinued the medication She recently had a ureteral stent inserted in August 2024 for worsening right- sided hydronephrosis and the stent was just removed last week and she will continue to follow-up with urology regularly for these issues She denies any headaches or dizziness lately Denies any chest pains, no increased shortness of breath No nausea/vomiting, no abdominal pain No change in bowel habits noted She had her follow up labs done a few days ago - to discuss her results Her annual mammogram was last done in 03/2024 She had her screening colonoscopy last done in 05/[address] Bella but the procedure was incomplete due to extrinsic adhesions and Dr. Bella was unable to pass the scope beyond the proximal transverse colon She reportedly had a complete hysterectomy done in 1996 due to cervical cancer and has been advised that she no longer need to have yearly pap smears or gynecology exams done [facility] Medical History Renal calculi Insomnia HLA-B27 spondyloarthropathy Osteoarthritis of multiple joints Hydronephrosis, bilateral Osteopenia Sacroiliac joint pain Encounter for medication monitoring Palpitations Gastritis Fibromyalgia Hx of small bowel obstruction Abdominal pain Obesity (BMI 30-39.9) Bipolar depression Vitamin D deficiency Migraine Allergic rhinitis Mild intermittent asthma without complication Pure hypercholesterolemia Primary osteoarthritis of right hip Lumbar spondylosis Surgical History (Updated 10/07/24 @ 04:10 by Christ Goodwin MD) S/P ureteral stent placement History of total hip arthroplasty (~08/15/23) S/P cystourethroscopy with dilation of urethral stricture (~07/21/20) History of esophagogastroduodenoscopy (EGD) Hx of unilateral oophorectomy Hx of colonoscopy Hx of cholecystectomy Hx of cystoscopy History of extraction of renal calculus History of carpal tunnel surgery History of hand surgery History of hysterectomy Family History Father Kidney problem Diabetes Mother Kidney malignancy Diabetes Brother Asthma Diabetes Social History Household Members: Spouse Housing: House Are you a primary career resource technician to a significant other at home: No Do you presently have visiting nurse or other home services: Yes Unable to assess alcohol history related to: Unknown Alcohol intake: never Comment: counts correct Patient Tobacco Use Status: Never used Tobacco e-Cigarette/Vaping Use: Never Used Second Hand Smoke Exposure: No Advance Directives Date on File: 08/08/23 service: No Current occupational status: disabled Cognitive needs: No Hearing needs: No Vision needs: Yes Questionnaire PHQ-9 Over the last 2 weeks, how often have you been bothered by any of the following problems? 1. Little interest or pleasure in doing things: not at all 2. Feeling down, depressed, or hopeless: several days 3. Trouble falling or staying asleep, or sleeping too much: not at all 4. Feeling tired or having little energy: not at all 5. Poor appetite or overeating: not at all 6. Feeling bad about yourself - or that you are a failure or have let yourself or your family down: not at all 7. Trouble concentrating on things, such as reading the newspaper or watching television: not at all 8. Moving or speaking so slowly that other people could have noticed. Or the opposite - being so fidgety or restless that you have been moving around a lot more than usual: not at all 9. Thoughts that you would be better off or of hurting yourself in some way: not at all Total score: 1 Depression Screening Interpretation: Positive Depression Screening Follow-up: Existing condition and In treatment Depression Screening Done: Yes 40472 - PHQ-9 Billing: Yes Source: Developed by Drs. Khalif Rodriguez, Columba Bangura, Shyam Timmons and colleagues, with an educational jalil from [employer]. Thrive Questionnaire Date Thrive assessed: 10/06/24 I am a: Patient What is your living situation today?: I have a steady place to live Within the past 12 months, did the food you bought not last and you didn't have the money to get more?: Never true Within the past 12 months, did you worry whether your food would run out before you got money to buy more?: Never true Do you have trouble paying for medicines?: No Do you have trouble getting transportation to medical appointments?: No Do you have trouble paying your heating and electricity bill?: No Do you have trouble taking care of your child, family member or friend?: I choose not to answer this question Do you have trouble with day-to-day activities such as bathing, preparing meals, shopping, managing finances, etc.?: Yes Are you currently unemployed and looking for a job?: I choose not to answer this question Are you interested in more education?: I choose not to answer this question Please select the resources that you would like help with: None Currently or been in a relationship where the following occur: No concerns reported THRIVE Score: 0 AUDIT C Alcohol Use Questionnaire (AUDIT-C) 1. How often do you have a drink containing alcohol?: Never 3. How often do you have six or more drinks on one occasion?: Never Total Score: 0 Score Reviewed/Action Taken: Yes ALEKS-7 AMB Questionnaire ALEKS-7 Date ALEKS - 7 assessed: 10/06/24 Feeling nervous, anxious, or on edge: 3 = Nearly every day Not being able to stop or control worryin = Nearly every day Worrying too much about different things: 3 = Nearly every day Trouble relaxin = Nearly every day Being so restless that it is hard to sit still: 3 = Nearly every day Becoming easily annoyed or irritable: 3 = Nearly every day Feeling afraid as if something awful might happen: 3 = Nearly every day Total ALEKS-7 score (0-4 normal; 5-9 mild; 10-14 moderate; 15-21 severe): 21 Source: Developed by Drs. Khalif Rodriguez, Columba Bangura, Shyam Timmons and colleagues, with an educational jalil from [employer]. Review of Systems Const Denies chills, Reports fatigue, Denies fever(s) and Denies headache(s) Eyes Denies blurry vision, Denies change in vision, Denies irritation and Denies itchy eyes ENT Denies dysphagia, Denies dizziness, Denies otalgia, Denies headache(s), Reports neck pain (chronic), Denies odynophagia and Denies sore throat Card Denies chest pain, Reports palpitations (occasionally) and Denies dyspnea Resp Denies chest congestion, Denies cough, Denies dyspnea and Denies wheezing GI Denies abdominal pain, Denies constipation, Denies dysphagia, Denies heartburn, Denies diarrhea, Denies nausea, Denies odynophagia and Denies vomiting Denies hematuria, Denies difficulty voiding, Denies nocturia, Denies dysuria and Denies urinary urgency Musc Reports back pain (chronic), Reports myalgias (diffuse), Reports arthralgias (involving multiple joints ), Reports neck pain (chronic) and Reports stiffness Skin/Breast Denies rash Neuro Denies dizziness and Denies headache(s) Psych Denies anxiety Endo Reports fatigue and Reports palpitations (occasionally) Loy/Lymph Denies easy bruising Aller/Immun Denies itchy eyes and Denies wheezing Physical exam (Primary Care) Vital Signs: Last Vital Signs Pulse 86 10/06/24 14:56 BP 128/74 10/06/24 14:56 Pulse Ox 98 10/06/24 14:56 Oxygen Delivery Method Room Air 10/06/24 14:56 BMI result Body Mass Index 37.0 Tobacco/Smoking Status: Tobacco use Status Tobacco use date assessed 10/06/24 10/06/24 15:08 Patient Tobacco Use Status Never used Tobacco 10/06/24 14:57 e-Cigarette/Vaping Use Never Used 10/06/24 14:57 PHQ-9: PHQ-9 Score PHQ-9: Total score 1 10/06/24 15:46 Depression Screening Interpretation: Positive Depression Screening Follow-up: Existing condition and In treatment Thrive Assessment: Date of Thrive Assessment Date Thrive assessed 10/06/24 10/06/24 15:08 Currently or been in a relationship where the following occur: No concerns reported Const General: no acute distress and alert Orientation/consciousness: patient oriented x3 HENMT Head: Yes normocephalic and Yes atraumatic Ears: TM's normal bilaterally and EAC's normal General nose exam: No nasal discharge present Face and sinus: Yes normal facial exam and Yes sinuses nontender Teeth and gingiva: dentition normal Throat: Yes posterior oropharynx normal and Yes tonsils normal Eyes Eyelids: Yes eyelids normal Conjunctivae: conjunctivae normal Pupils: Equal, round and reactive pupils present EOM: EOMs intact bilaterally Neck Neck: Yes no lymphadenopathy and Yes supple Thyroid: Thyroid normal Lymphatic: no lymphadenopathy noted Resp Auscultation: clear to auscultation bilaterally, no crackles, no rales and no wheezes Cardio Rate: regular rate Rhythm: regular rhythm Heart sounds: no murmurs GI Palpation (GI): Soft to palpation and nontender Auscultation: normal bowel sounds General: Yes no CVA tenderness Back/Spine/Pelvis Back: no CVA tenderness Cervical Spine: Cervical spine tenderness Thoracic/Lumbar Spine: lumbar spinal tenderness Skin Lesions: no lesions Rashes: no rashes Neuro General: patient oriented x3, moves all extremities, no focal motor deficits and CN's II-XI intact bilaterally Cranial nerves: Yes Equal, round and reactive pupils present Cognition (Neuro): normal cognition Gait exam (Neuro): Normal gait present Extrem General: Yes no clubbing, cyanosis or edema Right lower extremity: hip/thigh Details: tenderness Location: of the hip and abnormal ROM (increased pain with weight-bearing and active ROM) Results Reviewed Results Reviewed: Laboratory Tests 10/03/24 12:24 WBC 8.6 Hgb 11.7 L Hct 37.3 Plt Count 375 D Sodium 142 Potassium 4.3 Creatinine 0.73 Estimated GFR > 60 Fasting Glucose 85 Hemoglobin A1c % 5.3 Calcium 9.2 Iron 60 TIBC 332 % Saturation 18 AST 18 ALT 17 Triglycerides 258 H Cholesterol 214 H LDL Cholesterol, Calc 118 H HDL Cholesterol 45 Vitamin B12 204 25-OH Vitamin D Total 42.8 TSH 1.19 Coding Level of Care Code Est Pt Prev Care 40-64y(63538) Diagnoses Annual physical exam Z00.00 Pure hypercholesterolemia E78.00 Palpitations R00.2 Migraine without status migrainosus, not intractable, unspecified migraine type G43.909 Migraine type: unspecified Status migrainosus presence: without status migrainosus Intractability: not intractable Mild intermittent asthma without complication J45.20 Allergic rhinitis, unspecified seasonality, unspecified trigger J30.9 Allergic rhinitis trigger: unspecified Allergic rhinitis seasonality: unspecified Ureteral stricture, left N13.5 Renal calculi N20.0 Vitamin D deficiency E55.9 HLA-B27 spondyloarthropathy M47.899 Osteoarthritis of multiple joints, unspecified osteoarthritis type M15.9 Osteoarthritis type: unspecified Osteopenia of lumbar spine M85.88 Osteopenia location: lumbar spine Fibromyalgia M79.7 Insomnia, unspecified type G47.00 Insomnia type: unspecified Bipolar depression F31.9 Obesity (BMI 30-39.9) E66.9 Additional Codes PHQ-9 - 35508 - PHQ-9 Billing: Yes ([id number]) Assessment & Plan Assessment & Plan (1) Annual physical exam: Code(s): Z00.00 - Encounter for general adult medical examination without abnormal findings Category: Medical Plan: Results of her labs done a few days ago reviewed and discussed with patient She is up-to-date with cancer screenings - her annual mammogram was last done in 03/2024 She had her screening colonoscopy done in 05/[address] Bella but the procedure was incomplete due to extrinsic adhesions and Dr. Bella was unable to pass the scope beyond the proximal transverse colon She reportedly had a complete hysterectomy done in 1996 due to cervical cancer a nd has been advised that she no longer need to have yearly pap smears or gynecology exams done (2) Pure hypercholesterolemia: Code(s): E78.00 - Pure hypercholesterolemia, unspecified Category: Medical Plan: Reinforced low cholesterol diet Continue Atorvastatin 20 mg QD Will recheck her labs and fasting lipids in 4 months for follow-up (3) Palpitations: Code(s): R00.2 - Palpitations Category: Medical Plan: Patient states that her palpitations have not been occurring as often lately Continue Metoprolol 25 mg BID Extended Holter monitor (3 days) and echocardiogram done back in February 2022 both came out normal Holter monitor showed baseline normal sinus rhythm with average heart beat of 77 beats per minute with no significant pauses or bradycardia noted. There was a total of 4322 PVCs accounting for 1.32% of total beats but no patient reported events noted She was seen by cardiology early last year and was reportedly reassured that her symptoms are primarily from her PVCs and she has no other abnormal cardiac issues or findings Have recommended weight loss and also low dose Metoprolol 25 mg BID, which she is currently still on and she appears to be doing well on the medication so far (4) Migraine: Code(s): G43.909 - Migraine, unspecified, not intractable, without status migrainosus Category: Medical Qualifiers: Migraine type: unspecified Status migrainosus presence: without status migrainosus Intractability: not intractable Qualified Code(s): G43.909 - Migraine, unspecified, not intractable, without status migrainosus Plan: Stable lately Reinforced avoidance of migraine triggers Continue Narariptan 2.5 mg once a day as needed and Vitamin B2 tablets 100 mg 2 times a day for headache prophylaxis Follow up with [facility] Neurology as scheduled (5) Mild intermittent asthma without complication: Code(s): J45.20 - Mild intermittent asthma, uncomplicated Category: Medical Plan: Stable/controlled -? PFTs done a couple of years ago came back normal Continue Flovent HFA 220 mg 1 puff twice a day, Albuterol HFA 2 puffs 4 times a day as needed and Montelukast 10 mg 1 tablet QD (6) Allergic rhinitis: Code(s): J30.9 - Allergic rhinitis, unspecified Category: Medical Qualifiers: Allergic rhinitis trigger: unspecified Allergic rhinitis seasonality: unspecified Qualified Code(s): J30.9 - Allergic rhinitis, unspecified Plan: She continues to receive immunotherapy (Xolair) from her swage toolsetter Follow-up with swage toolsetter as scheduled (7) Ureteral stricture, left: Code(s): N13.5 - Crossing vessel and stricture of ureter without hydronephrosis Category: Medical Plan: She currently appears to only have about 45% of preserved left renal function with evidence of high-grade obstruction, likely due to the left ureteral stricture She eventually underwent diagnostic left RPG to further evaluate her left ureteral stricture and left hydronephrosis - retrograde pyelogram revealed (+) widely patent stricture and was negative for high-grade obstruction Follow up with [facility] as scheduled (8) Renal calculi: Code(s): N20.0 - Calculus of kidney Category: Medical Plan: S/P kidney stone removal and stent placement with urology on 05/23/2023 She had right stent insertion from 08/26/2024 to 09/30/2024 due to worsening right-sided hydronephrosis Follow up with urology as scheduled (9) Vitamin D deficiency: Code(s): E55.9 - Vitamin D deficiency, unspecified Category: Medical Plan: Continue Vitamin D3 2000 units QD (10) HLA-B27 spondyloarthropathy: Code(s): M47.899 - Other spondylosis, site unspecified Category: Medical Plan: Reinforced activity and weight-lifting restrictions Continue Gabapentin 800 mg TID, Duloxetine 60 mg QD and Sulfasalazine 500 gm 2 tablets every 12 hours (has taken Humira in the past with poor response) Patient underwent bilateral diagnostic L3, L4, DRL5, MBB with Dr. Thomas on 05/03/2021 - she reportedly experienced significant pain relief and was then scheduled for bilateral L3 L4 DR L5 MBB RFA with sedation and flouroscopy but this was denied by her insurance Had a trial of SI joint injection with pain management in February 2023 with good results Follow-up with rheumatology and with [facility] Pain Management as scheduled (11) Osteoarthritis of multiple joints: Code(s): M15.9 - Polyosteoarthritis, unspecified Category: Medical Qualifiers: Osteoarthritis type: unspecified Qualified Code(s): M15.9 - Polyosteoarthritis, unspecified Plan: Especially involving the right hip and both hands S/P total right hip arthroplasty in August 2023 Continue Nabumetone 750 mg BID PRN Follow up with rheumatology as scheduled (12) Osteopenia: Comment: T scores 03/2023: Femur 0.4, femoral neck-0.7, LS -1.8 FRAX: 4.1/0.1 Code(s): M85.80 - Other specified disorders of bone density and structure, unspecified site Category: Medical Qualifiers: Osteopenia location: lumbar spine Qualified Code(s): M85.88 - Other specified disorders of bone density and structure, other site Plan: She had a BASELINE BMD done on 03/30/2023, which revealed (+) osteopenia based on the lowest T-score value of -1.8 in the lumbar spine Her FRAX score is 4.1% She is encouraged to continue daily Vitamin D and Calcium supplements and to try to exercise and stay as active as she can regularly Will continue to monitor her BMD every 2 to 3 years (13) Fibromyalgia: Code(s): M79.7 - Fibromyalgia Category: Medical Plan: Patient is again encouraged to try to stay active and exercise regularly to help manage her fibromyalgia symptoms better Continue Gabapentin 800 mg TID and Duloxetine 60 mg QD (14) Insomnia: Code(s): G47.00 - Insomnia, unspecified Category: Medical Qualifiers: Insomnia type: unspecified Qualified Code(s): G47.00 - Insomnia, unspecified Plan: Sleep hygiene reinforced Continue Zolpidem 10 mg once a day at bedtime as needed (15) Bipolar depression: Code(s): F31.9 - Bipolar disorder, unspecified Category: Medical Plan: Continue Clonazepam 1 mg twice a day as needed and Citalopram 10 mg once a day Follow-up with Psychiatry as scheduled - has been seeing Juan C Garcia of [facility] since 01/11/2022 (16) Obesity (BMI 30-39.9): Code(s): E66.9 - Obesity, unspecified Category: Medical Plan: Reinforced diet; exercise and weight options are limited and not practical due to her multiple physical issues and comorbidities Plan Follow-up in 4 months Orders: Orders Lipid Panel 4 Months E78.00 - Pure hypercholesterolemia, unspecified Complete Blood Count Auto Diff 4 Months D64.9 - Anemia, unspecified Comprehensive [place]. Panel Fast 4 Months E78.00 - Pure hypercholesterolemia, unspecified Vitamin D 25-OH Total 4 Months E55.9 - Vitamin D deficiency, unspecified TSH reflex Free T4 4 Months E78.00 - Pure hypercholesterolemia, unspecified UA CC w/rflx Micro + Cult 4 Months R30.0 - Dysuria
--- OUTSIDE RECORDS SUMMARY | 2024-10-06 17:21 | XMS_ITS | Clinical Summary ---
Author Organization [facility] Address [address] [place] [address] Phone Care Team Providers Care Reversing Mill Roller Name Role Phone Christ Silva MD Primary Care Provider [phone] Allergies No known active allergies Social History [...] Procedure Name Priority Date/Time Associated Diagnosis Comments [facility] SCREENING DIGITAL Routine 12/20/2020 7:17 PM EDT Encounter for screening mammogram for malignant neoplasm of breast from Last 3 Months or Most Recently Relevant to Health Maintenance Results * [facility] SCREENING DIGITAL (12/20/2020 7:17 PM EDT) Anatomical Region Laterality Modality Mammography 12/20/2020 2:13 PM EDT Narrative 12/20/2020 7:17 PM EDT [facility] Diagnostic Imaging Department [address] [place] [address] [id number] Patient: ??ELISHA MILLS ?/Age/Sex: 1970 - 50 - F Unit#: ??[id number] ? Location/Status: ??SPDIMAM/REG CLI ? Mnemonic/Ordering Site: ??DIGSC/SPMAM Ordering Physician: ??CHRIST SILVA MD Leroy Screening Digital - 12/20/20 - 1508 History: Bilateral breast cancer screening. Technique: Digital mammography. Conventional CC and MLO projections with tomosynthesis MLO views and computer aided detection Findings: Comparison:[facility] 08/21/2019, dating back to 03/09/2011. Breast tissue is mostly fatty replaced (category a density) bilaterally (as calculated by [employer] software). There are benign calcifications on the right. ?? There is no suspicious group of microcalcification, no suspicious mass, architectural distortion or suspicious asymmetry. Impression: ??No evidence of malignancy. BIRADS category 2, benign findings, 3342F 86755, 21791 Note: Patient information entered ??into a reminder system with a target due date for the next mammogram; PQRI II 7897F Dictating Physician: ??MIKEY ROMAN MD Electronically Signed by: ??MIKEY ROMAN MD Dic Date/Time: ??12/20/201916 Sign date/Time: ??12/20/201916 Procedure Note Mikey Roman MD - 07/25/2022 [facility] Diagnostic Imaging Department [address] [place] [address] Patient: SE MILLSICE /Age/Sex: 1970 - 50 - F Unit#: [id number] Location/Status: SPDIMAM/REG CLI Mnemonic/Ordering Site: [facility] Ordering Physician: CHRIST SILVA MD Leroy Screening Digital - 12/20/20 - 1508 History: Bilateral breast cancer screening. Technique: Digital mammography. Conventional CC and MLO projections with tomosynthesis MLO views and computer aided detection Findings: Comparison:[facility] 08/21/2019, dating back to 03/09/2011. Breast tissue is mostly fatty replaced (category a density) bilaterally(as calculated by [employer] Volpara software). There are benign calcificationson the right. There is no suspicious group of microcalcification, no suspiciousmass, architectural distortion or suspicious asymmetry. Impression: No evidence of malignancy. BIRADS category 2, benign findings, 3342F 31749, 05202 Note: Patient information entered into a reminder system with a targetdue date for the next mammogram; PQRI II 7086F Dictating Physician: MIKEY ROMAN MD Electronically Signed by: MIKEY ROMAN MD Dic Date/Time: 12/20/201916 Sign date/Time: 12/20/201916 Christ iSlva MD IMG BI PROCEDURES Final Resu lt from Last 3 Months or Most Recently Relevant to Health Maintenance Insurance MEDICAID - [place] Care Teams Reversing Mill Roller Relationship Specialty Start Date End Date Christ Silva MD [address] [place] PCP - General Internal Medicine 07/01/24
--- OUTSIDE RECORDS SUMMARY | 2024-10-06 17:21 | XMS_ITS | Clinical Summary ---
Author Organization [facility] Address [address] [place] [address] Care Team Providers Care Application Integrator Name Role Phone Teresa Vega PA-C Primary Care Provider [phone] Source Comments PLEASE NOTE, if this patient [...] mcg/actuation nasal sprayIndication s:Seasonal allergies Place 1 [place] into the nostril(s) once daily. 16 g [...] 10/21/2014 Nephrolithiasis 08/19/2014 Overview (02/15/2015): Follows at [facility] Urolog Lt ureteroscopy with manipulation of lt renal stone and stent placed at [facility] January 27 2015 S/P unilateral salpingo-oophorectomy. LEFT 05/05 Overview (05/22/2014): Done at [facility] on 05/05/14 History of normal mammogram 04/16/2014 History of cervical cancer 01/26/2014 Overview (01/26/2014): Seen by claim representative/onc at [facility] Sp Hysterectomy, had +nodes, received chemo and radiation On Estrogen She has persistent ovarian cyst and will undergo resection around April: explorat laparotomy, biopsy, etc Migraine headache 01/26/2014 Overview (01/26/2014): Has seen [facility] Neuro Prescribed IC NAratriptan HCL 2.5mg [...] her usual. Asthma exacerbation Bipolar 1 disorder ([facility]) Overview (01/26/2014): Follows with Psych: Benitez Nick MD at [address] [place] [address] On: Celexa, Ambien and Klonopin Resolved Problems [...] Plan of Treatment Not on file Insurance [place] MEDICAID Care Teams Application Integrator Relationship Specialty Start Date End Date Teresa Vega PA-C [address] [place] [address] PCP - General 10/01/18
== END 2024-10-06 15:50 | disposition home or self-care (01) ==
PROVIDERS: PCP Internal Medicine; Visit Provider Internal Medicine
DX: Z00.00 Encounter for general adult medical examination without abnormal findings (principal); F31.9 Bipolar disorder, unspecified; E66.9 Obesity, unspecified; Z68.37 Body mass index [BMI] 37.0-37.9, adult; E78.00 Pure hypercholesterolemia, unspecified; R00.2 Palpitations; G43.909 Migraine, unspecified, not intractable, without status migrainosus; J45.20 Mild intermittent asthma, uncomplicated; J30.9 Allergic rhinitis, unspecified; N13.5 Crossing vessel and stricture of ureter without hydronephrosis; N20.0 Calculus of kidney; E55.9 Vitamin D deficiency, unspecified

== ENCOUNTER → 2024-10-06 14:34 | Outpatient (BNVA) | payer OTHER, SELFPAY | PROVIDERS: PCP Internal Medicine; Visit Provider Internal Medicine | DX: Z00.00 Encounter for general adult medical examination without abnormal findings (principal); E78.00 Pure hypercholesterolemia, unspecified; R00.2 Palpitations; G43.909 Migraine, unspecified, not intractable, without status migrainosus; J45.20 Mild intermittent asthma, uncomplicated; J30.9 Allergic rhinitis, unspecified; N13.5 Crossing vessel and stricture of ureter without hydronephrosis; N20.0 Calculus of kidney; E55.9 Vitamin D deficiency, unspecified; M47.899 Other spondylosis, site unspecified; M15.9 Polyosteoarthritis, unspecified; M85.88 Other specified disorders of bone density and structure, other site; M79.7 Fibromyalgia; G47.00 Insomnia, unspecified; F31.9 Bipolar disorder, unspecified; E66.9 Obesity, unspecified | CPT/HCPCS: 96127; 99396 ==

== ENCOUNTER 2024-10-07 15:11 | Outpatient (AMB) | payer OTHER, SELFPAY ==
[2024-10-07 15:14] VITALS: BP 118/62; PULSE 68; O2SAT 98; BMI 37.5
--- NOTE | 2024-10-07 15:14 | A.OFFVIS_ITS ---
Vital Signs 10/07/24 15:14 Height 5 ft Weight 191 lb 12.835 oz BMI 37.5 BP 118/62 Blood Pressure Location Rt brachial Position Sitting Pulse 68 Pulse Source Pulse Oximeter Pulse Oximetry (%) 98 Oxygen Delivery Method Room Air Intake Visit Reasons: 4 mo f/u Intake Note: ESTABLISHED PATIENT for IBS, GERD mgmt. Chief Complaint; Pt states that her sx have been well controlled and have improved since last visit. Pt denies any GI concerns at this time. Nursery Laborer Required: No Accompanied by: Self / Same As Patient Allergies hazelnut Allergy (Severe, Verified 10/07/24 15:16) Itching, coughing, and hives Penicillins [PENICILLINS] Allergy (Severe, Verified 10/07/24 15:16) HIVES birch Allergy (Intermediate, Verified 10/07/24 15:16) Itching Iodinated Contrast Media [IV CONTRAST] Allergy (Intermediate, Verified 10/07/24 15:16) HIVES peanut [PEANUTS] Allergy (Intermediate, Verified 10/07/24 15:16) HIVES shellfish derived [SHELLFISH DERIVED] Allergy (Intermediate, Verified 10/07/24 15:16) HIVES almond Allergy (Mild, Verified 10/07/24 15:16) Hives cat dander Allergy (Mild, Verified 10/07/24 15:16) cough/hives dog dander Allergy (Mild, Verified 10/07/24 15:16) cough/hives pollen extracts Allergy (Mild, Verified 10/07/24 15:16) runny nose, itchy eyes HPI HPI 4 mo f/u: Details: LAST VISIT: Constipation IBS (irritable bowel syndrome) GERD (gastroesophageal reflux disease) Postprandial abdominal bloating Nausea and vomiting in adult Diarrhea Plan Continue avoiding dietary triggers and late night snacking. Continue panto prazole in the morning and famotidine at bedtime. 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 Recommend low fat, low carb, high-fiber diet. May take zgss-aur-sguaaae fiber supplements. Patient will follow-up in the office in 4 months, sooner on as needed basis. She is agreeable to this plan and verbalizes understanding of instructions. She was given the opportunity to ask questions and all questions answered. ? TODAY'S VISIT Patient is here today for follow-up. Patient reports that she has been doing fairly well, avoiding dietary triggers and for the most part she is doing well. She is taking pantoprazole in the morning, famotidine at bedtime and her sym ptoms of acid reflux have been suppressed. Patient does not eat late at night. She is avoiding food that cause her rapid bowel movements. Status post cholecystectomy patient is aware to eat low-fat diet. Patient reports that she for the most part is moving her bowels well. History of colonoscopy in 2018 partial colonoscopy as patient had multiple adhesions and unable to pass through. Patient had multiple pelvic surgeries and adhesions restricted completing colonoscopy all together and patient is very reluctant about going for another procedure. [facility] Medical History Renal calculi Insomnia HLA-B27 spondyloarthropathy Osteoarthritis of multiple joints Hydronephrosis, bilateral Osteopenia Sacroiliac joint pain Encounter for medication monitoring Palpitations Gastritis Fibromyalgia Hx of small bowel obstruction Abdominal pain Obesity (BMI 30-39.9) Bipolar depression Vitamin D deficiency Migraine Allergic rhinitis Mild intermittent asthma without complication Pure hypercholesterolemia Primary osteoarthritis of right hip Lumbar spondylosis Surgical History S/P ureteral stent placement History of total hip arthroplasty (~08/15/23) S/P cystourethroscopy with dilation of urethral stricture (~07/21/20) History of esophagogastroduodenoscopy (EGD) Hx of unilateral oophorectomy Hx of colonoscopy Hx of cholecystectomy Hx of cystoscopy History of extraction of renal calculus History of carpal tunnel surgery History of hand surgery History of hysterectomy Family History Father Kidney problem Diabetes Mother Kidney malignancy Diabetes Brother Asthma Diabetes Social History Household Members: Spouse Housing: House Are you a primary career placement services counselor to a significant other at home: No Do you presently have visiting nurse or other home services: Yes Unable to assess alcohol history related to: Unknown Alcohol intake: never Comment: counts correct Patient Tobacco Use Status: Never used Tobacco e-Cigarette/Vaping Use: Never Used Second Hand Smoke Exposure: No Advance Directives Date on File: 08/08/23 service: No Current occupational status: disabled Cognitive needs: No Hearing needs: No Vision needs: Yes Review of Systems Const Denies weight gain and Denies weight loss ENT Reports no additional complaints, Denies dysphagia and Denies odynophagia Card Reports no additional complaints Resp Reports no additional complaints GI Reports abdominal pain (R&LUQ occasional), Denies belching, Denies melena, Reports bloating, Denies change in bowel habits, Reports constipation (Occasional), Denies dysphagia, Denies excessive flatus, Denies dyspepsia, Denies heartburn, Denies diarrhea, Reports loose stools (Occasional), Denies nausea, Denies odynophagia and Denies vomiting Reports no additional complaints Musc Reports no additional complaints Neuro Reports no additional complaints Psych Reports no additional complaints Endo Reports no additional complaints Physical Exam Vital Signs: Last Vital Signs Pulse 68 10/07/24 15:14 BP 118/62 10/07/24 15:14 Pulse Ox 98 10/07/24 15:14 Oxygen Delivery Method Room Air 10/07/24 15:14 BMI result Body Mass Index 37.5 Const General: healthy appearing and no acute distress Nutritional Appearance: obese Orientation/consciousness: patient oriented x3 Resp Effort & Inspection: normal respiratory effort, able to speak in complete sentences, no tracheal deviation and symmetric chest movement Auscultation: clear to auscultation bilaterally Cardio Rate: regular rate GI Inspection: Yes normal to inspection, No distended and Yes obesity Palpation (GI): Soft to palpation, not firm, nontender and No hepatosplenomegaly present Auscultation: normal bowel sounds General: Yes no CVA tenderness Back/Spine/Pelvis Back: no CVA tenderness Skin General skin exam: elasticity normal, turgor normal and dry skin Neuro General: patient oriented x3 Psych Appearance: grossly normal Mental Status: mental status grossly normal Affect: normal affect Assessment & Plan Assessment & Plan (1) Constipation: Code(s): K59.00 - Constipation, unspecified Qualifiers: Constipation type: slow transit constipation Qualified Code(s): K59.01 - Slow transit constipation (2) IBS (irritable bowel syndrome): Code(s): K58.9 - Irritable bowel syndrome, unspecified Qualifiers: Irritable bowel syndrome type: with both diarrhea and constipation Qualified Code(s): K58.2 - Mixed irritable bowel syndrome (3) GERD (gastroesophageal reflux disease): Code(s): K21.9 - Gastro-esophageal reflux disease without esophagitis Qualifiers: Esophagitis presence: esophagitis presence not specified Qualified Code(s): K21.9 - Gastro-esophageal reflux disease without esophagitis (4) Postprandial abdominal bloating: Code(s): R14.0 - Abdominal distension (gaseous) (5) Nausea and vomiting in adult: Code(s): R11.2 - Nausea with vomiting, unspecified (6) Diarrhea: Code(s): R19.7 - Diarrhea, unspecified Qualifiers: Diarrhea type: functional diarrhea Qualified Code(s): K59.1 - Functional diarrhea Plan Continue current management with PPI and H2 margaret. Avoid dietary triggers and late night snacking. Staying upright for minimum 3 hours after meals discussed with patient. We did go over colonoscopy and patient would rather not go through with it. Patient had incomplete colonoscopy due to multiple adhesions, status post surgeries. Patient reports no abdominal pain. Exam negative for any abdominal wall hernias, tenderness. Patient will follow-up in 4 months, sooner on as needed basis. She is agreeable to this plan and verbalizes understanding of instructions. She was given the opportunity to ask questions and all questions answered. Thank you for allowing me to participate in her care Medications: New cyanocobalamin (vitamin B-12) ER 1,000 mcg PO DAILY 90 tabs 3RF Discontinued clindamycin HCl Discontinued Reason: Patient no longer taking 600 mg (2 x 300 mg) PO ONCE 1 day 2 caps 0RF 1 hr prior to dental work Coding Level of Care Code Est Pt Level 4 (75751) Complex EM visit Add On G2211 Diagnoses Slow transit constipation K59.01 Constipation type: slow transit constipation Irritable bowel syndrome with both constipation and diarrhea K58.2 Irritable bowel syndrome type: with both diarrhea and constipation Gastroesophageal reflux disease, unspecified whether esophagitis present K21.9 Esophagitis presence: esophagitis presence not specified Postprandial abdominal bloating R14.0 Nausea and vomiting in adult R11.2 Functional diarrhea K59.1 Diarrhea type: functional diarrhea Time Spent (min) 40 Comment 25 minutes spent with patient and additional 15 minutes spent reviewing her records
--- OUTSIDE RECORDS SUMMARY | 2024-10-07 19:13 | XMS_ITS | Clinical Summary ---
Author Organization [facility] Address [address] [place] [address] Phone Care Team Providers Care Foundry Process Engineer Name Role Phone Christ Silva MD Primary Care Provider [phone] Allergies No known active allergies Social History [...] Procedure Name Priority Date/Time Associated Diagnosis Comments [facility] SCREENING DIGITAL Routine 12/20/2020 7:17 PM EDT Encounter for screening mammogram for malignant neoplasm of breast from Last 3 Months or Most Recently Relevant to Health Maintenance Results * [facility] SCREENING DIGITAL (12/20/2020 7:17 PM EDT) Anatomical Region Laterality Modality Mammography 12/20/2020 2:13 PM EDT Narrative 12/20/2020 7:17 PM EDT [facility] Diagnostic Imaging Department [address] [place] [address] [id number] Patient: ??ELISHA MILLS ?/Age/Sex: 1970 - 50 - F Unit#: ??[id number] ? Location/Status: ??SPDIMAM/REG CLI ? Mnemonic/Ordering Site: ??DIGSC/SPMAM Ordering Physician: ??CHRIST SILVA MD Leroy Screening Digital - 12/20/20 - 1508 History: Bilateral breast cancer screening. Technique: Digital mammography. Conventional CC and MLO projections with tomosynthesis MLO views and computer aided detection Findings: Comparison:[facility] 08/21/2019, dating back to 03/09/2011. Breast tissue is mostly fatty replaced (category a density) bilaterally (as calculated by [employer] software). There are benign calcifications on the right. ?? There is no suspicious group of microcalcification, no suspicious mass, architectural distortion or suspicious asymmetry. Impression: ??No evidence of malignancy. BIRADS category 2, benign findings, 3342F 33323, 30658 Note: Patient information entered ??into a reminder system with a target due date for the next mammogram; PQRI II 0690F Dictating Physician: ??MIKEY ROMAN MD Electronically Signed by: ??MIKEY ROMAN MD Dic Date/Time: ??12/20/201916 Sign date/Time: ??12/20/201916 Procedure Note Mikey Roman MD - 07/25/2022 [facility] Diagnostic Imaging Department [address] [place] [address] Patient: SE MILLSICE /Age/Sex: 1970 - 50 - F Unit#: [id number] Location/Status: SPDIMAM/REG CLI Mnemonic/Ordering Site: [facility] Ordering Physician: CHRIST SILVA MD Leroy Screening Digital - 12/20/20 - 1508 History: Bilateral breast cancer screening. Technique: Digital mammography. Conventional CC and MLO projections with tomosynthesis MLO views and computer aided detection Findings: Comparison:[facility] 08/21/2019, dating back to 03/09/2011. Breast tissue is mostly fatty replaced (category a density) bilaterally(as calculated by [employer] Volpara software). There are benign calcificationson the right. There is no suspicious group of microcalcification, no suspiciousmass, architectural distortion or suspicious asymmetry. Impression: No evidence of malignancy. BIRADS category 2, benign findings, 3342F 85045, 29514 Note: Patient information entered into a reminder system with a targetdue date for the next mammogram; PQRI II 7039F Dictating Physician: MIKEY ROMAN MD Electronically Signed by: MIKEY ROMAN MD Dic Date/Time: 12/20/201916 Sign date/Time: 12/20/201916 Christ Silva MD IMG BI PROCEDURES Final Resu lt from Last 3 Months or Most Recently Relevant to Health Maintenance Insurance MEDICAID - [place] Care Teams Foundry Process Engineer Relationship Specialty Start Date End Date Christ Silva MD [address] [place] PCP - General Internal Medicine 07/01/24
--- OUTSIDE RECORDS SUMMARY | 2024-10-07 19:13 | XMS_ITS | Clinical Summary ---
Author Organization [facility] Address [address] [place] [address] Care Team Providers Care Medicare Coordinator Name Role Phone Teresa Vega PA-C Primary Care Provider [phone] Source Comments PLEASE NOTE, if this patient [...] mcg/actuation nasal sprayIndication s:Seasonal allergies Place 1 [place] into the nostril(s) once daily. 16 g [...] 10/21/2014 Nephrolithiasis 08/19/2014 Overview (02/15/2015): Follows at [facility] Urolog Lt ureteroscopy with manipulation of lt renal stone and stent placed at [facility] January 27 2015 S/P unilateral salpingo-oophorectomy. LEFT 05/05 Overview (05/22/2014): [place] [facility] [place] History of normal mammogram 04/16/2014 History of cervical cancer 01/26/2014 Overview (01/26/2014): Seen by survey data technician/onc at [facility] [place] Hysterectomy, had +nodes, received chemo and radiation On Estrogen She has persistent ovarian cyst and will undergo resection around April: explorat laparotomy, biopsy, etc Migraine headache 01/26/2014 Overview (01/26/2014): Has seen [facility] Neuro Prescribed IC NAratriptan HCL 2.5mg HLD [...] her usual. Asthma exacerbation Bipolar 1 disorder ([facility]) Overview (01/26/2014): Follows with Psych: Benitez Nick MD at [address] [place] [address] On: Celexa, Ambien and Klonopin Resolved Problems [...] Plan of Treatment Not on file Insurance [place] MEDICAID Care Teams Medicare Coordinator Relationship Specialty Start Date End Date Teresa Vega PA-C [address] [place] [address] PCP - General 10/01/18
== END 2024-10-07 16:18 | disposition home or self-care (01) ==
PROVIDERS: PCP Internal Medicine; Visit Provider Nurse Practitioner Family
DX: K59.01 Slow transit constipation (principal); K58.2 Mixed irritable bowel syndrome; K21.9 Gastro-esophageal reflux disease without esophagitis; R14.0 Abdominal distension (gaseous); R11.2 Nausea with vomiting, unspecified; K59.1 Functional diarrhea
CPT/HCPCS: 99214; G2211

== ENCOUNTER → 2024-10-07 15:11 | Outpatient (BNVA) | payer OTHER, SELFPAY | PROVIDERS: PCP Internal Medicine; Visit Provider Nurse Practitioner Family | DX: K59.01 Slow transit constipation (principal); K58.2 Mixed irritable bowel syndrome; K21.9 Gastro-esophageal reflux disease without esophagitis; K59.1 Functional diarrhea; R14.0 Abdominal distension (gaseous); R11.2 Nausea with vomiting, unspecified | CPT/HCPCS: 99212 ==

== ENCOUNTER 2024-12-16 11:05 | Emergency (ER) | payer OTHER, SELFPAY ==
[2024-12-16 11:20] VITALS: BP 140/112; PULSE 80; O2SAT 95
[2024-12-16 11:24] VITALS: BP 112/62; PULSE 66; RESP 20; TEMP 36.9; O2SAT 94; BMI 38.3
[2024-12-16 11:58] LABS: Basophils Absolute Auto 0.1 X10*3/uL (0.0-0.2); Basophils Percent Auto 0.4 % (0-2); Hematocrit 36.8 % (37.0-47.0); Hemoglobin 11.6 g/dl (12.0-16.0); Imm Gran Abs Auto 0.04 X10*3/uL (0.00-0.03); Imm Gran Pct Auto 0.3 % (0.0-0.4); Lymphocytes Absolute Auto 0.6 X10*3/uL (1.2-4.9); Lymphocytes Percent Auto 4.8 % (20-40); MANUAL DIFF FLAG SCAN; Mean Corpuscular HGB Conc 31.5 g/dl (31.0-35.0); Mean Corpuscular Hemoglobin 27.3 pg (27.0-33.0); Mean Corpuscular Volume 86.6 fL (80.0-98.0); Monocytes Absolute Auto 0.3 X10*3/uL (0.1-1.2); Monocytes Percent Auto 2.2 % (2-11); Neutrophils Absolute Auto 11.7 x10*3/uL (2.0-8.3); Neutrophils Percent Auto 92.3 % (45-73); PLT CLUMP 1; Red Blood Count 4.25 X10*6/uL (4.20-5.50); Red Cell Distribution Width 14.3 % (11.0-16.0); SCAN SMEAR FLAG 1
[2024-12-16] MEDS: Magnesium Hydrox/Alum Hydrox 30 ML ORAL.SUSP PO (12:05)
[2024-12-16] MEDS: Metoclopramide HCl 10 MG/2 ML VIAL IVPUSH (12:06)
[2024-12-16] MEDS: diphenhydrAMINE HCL 50 MG/ML VIAL 12.5 MG IVPUSH (12:09)
[2024-12-16 12:12] LABS: Alanine Aminotransferase 11 U/L (0-31); Albumin Level 3.9 g/dL (3.5-5.0); Anion Gap 15 (12-20); Aspartate Amino Transferase 15 U/L (5-31); Bilirubin Direct 0.1 mg/dL (0.0-0.5); Bilirubin Total 0.5 mg/dL (0.0-1.0); Blood Urea Nitrogen 11 mg/dL (9-16); Calcium 8.9 mg/dL (8.4-10.2); Carbon Dioxide 20 mmol/L (22-29); Chloride 110 mmol/L (96-108); Creatinine Clr Calc Pharmacy 92.2; Estimated Glomerular Filt Rate > 60; Glucose Random 128 mg/dL (60-115); Lipase 29 U/L (8-78); Potassium 3.8 mmol/L (3.3-5.1); SLIDE REVIEW VERIFIED; Sodium 141 mmol/L (135-145); White Blood Count 12.7 X10*3/uL (4.8-10.8)
[2024-12-16] MEDS: 0.9 % Sodium Chloride 1,000 ML 999 ML IV (12:12)
[2024-12-16 12:13] VITALS: BP 120/66; PULSE 62; O2SAT 97
--- NOTE | 2024-12-16 12:20 | ECG_ITS ---
Test Reason : ABDOMINAL PAIN Blood Pressure : */* mmHG Vent. Rate : 72 BPM Atrial Rate : 72 BPM P-R Int : 126 ms QRS Dur : 84 ms QT Int : 398 ms P-R-T Axes : 30 -10 7 degrees QTcB Int : 435 ms Normal sinus rhythm Normal ECG When compared with ECG of 27-Aug-2023 11:42, No significant change was found Referred By: Debra Sharp Electronically Signed By: CARLITA MARTIN MD
--- NOTE | 2024-12-16 12:41 | ED.ABDPAIN ---
HPI - Abdominal Pain General Chief Complaint: Abdominal Pain Stated Complaint: EPIGASTRIC ABD PAIN, NAUSEA/VOMITING X1D PER EMS Time Seen by Provider: 12/16/24 11:33 Source: patient, EMS, RN notes reviewed and old records reviewed Mode of arrival: EMS History of Present Illness ED Provider: Debra Sharp PA-C HPI narrative: 54-year-old female with a past medical history of insomnia, fibromyalgia, bipolar, migraines, asthma, HLD, GERD, IBS, presenting to the ED via EMS complaining of epigastric abdominal pain, nausea, vomiting, lightheadedness and chills since last night. Reports multiple episodes of emesis. Admits to similar symptoms in the past, follows with GI. Took Pepcid and Zofran this a.m. without relief. Denies chest pain, SOB, diarrhea/ constipation, dysuria /hematuria Related Data Home Medications ?Medication ?Instructions ?Recorded ?Confirmed cetirizine 10 mg tablet (Zyrtec) 10 mg PO DAILY PRN allergies 07/06/20 10/06/24 clonazepam 1 mg tablet (Klonopin) 1 mg PO BID 07/06/20 10/06/24 montelukast 10 mg tablet 10 mg PO BEDTIME 07/06/20 10/06/24 (Singulair) cyclosporine 0.05 % eye drops in a 1 drp ophthalmic (eye) Q12H 01/06/21 10/06/24 dropperette (Restasis) epinephrine 0.3 mg/0.3 mL 0.3 mg IM ONCE PRN anaphylaxis 09/18/22 10/06/24 injection, auto-injector bimatoprost 0.01 % eye drops 1 drp ophthalmic (eye) BEDTIME 03/26/23 10/06/24 (Lumigan) omalizumab 150 mg subcutaneous 150 mg subcut Q3W 05/02/23 10/06/24 solution (Xolair) docusate sodium 100 mg capsule 100 mg PO BID PRN Constipation 08/27/23 10/06/24 fluticasone propionate 220 1 puff inhalation BID PRN breathing 08/27/23 10/06/24 mcg/actuation HFA aerosol inhaler (Flovent HFA) mometasone 100 mcg/actuation HFA 1 puff inhalation BID PRN breathing 08/27/23 10/06/24 aerosol inhaler (Asmanex HFA) cholecalciferol (vitamin D3) 50 50 mcg PO DAILY 11/12/23 10/06/24 mcg (2,000 unit) capsule bupropion HCl 300 mg 24 hr tablet, mg PO DAILY 10/07/24 extended release dorzolamide-timolol (PF) 2 %-0.5 % drp ophthalmic (eye) BID 10/07/24 eye drops in a dropperette (Cosopt (PF)) Previous Rx's ?Medication ?Instructions ?Recorded zolpidem 10 mg tablet (Ambien) 10 mg PO BEDTIME PRN Insomnia 30 12/28/21 days #30 tabs SHOWER CHAIR #1 ea 01/23/23 walker #1 ea 08/02/23 ondansetron 4 mg disintegrating 4 mg PO Q8H PRN Nausea #20 tabs 01/11/24 tablet magnesium oxide 400 mg (241.3 mg 400 mg PO BEDTIME 30 days #30 tabs 01/16/24 magnesium) tablet sumatriptan succinate 100 mg tablet 25 - 100 mg (0.25 - 1 x 100 mg) PO 01/16/24 .COMPLEX PRN migraine headache 30 days #12 tabs naloxone 10 mg/0.4 mL 10 mg (0.4 mL) subcut Q2M #4 mL 03/03/24 injection,auto-injector propranolol 60 mg capsule,24 60 mg PO BEDTIME 30 days #30 caps 04/14/24 hr,extended release fluticasone propionate 50 1 spray intranasal DAILY PRN 05/26/24 mcg/actuation nasal Congestion #16 grams spray,suspension baclofen 20 mg tablet 20 mg PO BID 30 days #60 tabs 05/29/24 gabapentin 800 mg tablet 800 mg PO Q8H 30 days #90 tabs 05/29/24 famotidine 20 mg tablet 20 mg PO BEDTIME for heartburn #90 06/12/24 tabs valacyclovir 1 gram tablet 2,000 mg (2 x 1 gram) PO ONCE #2 06/13/24 tabs naloxone 4 mg/actuation nasal 4 mg intranasal Q2M PRN opioid 06/18/24 spray (Narcan) overdose #2 ea pantoprazole 40 mg tablet,delayed 40 mg PO QAM #90 tabs 08/07/24 release magnesium chloride 64 mg 64 mg PO BEDTIME 30 days #30 tabs 01/15/25 (magnesium chloride) tablet,delayed release rimegepant 75 mg disintegrating 75 mg PO ONCE PRN migraine 08/20/24 tablet (Nurtec ODT) headache 30 days #16 tabs tramadol 50 mg tablet 50 mg PO BID #60 tabs 09/25/24 cyanocobalamin (vitamin B-12) 1,000 mcg PO DAILY #90 tabs 10/07/24 1,000 mcg tablet,extended release atorvastatin 20 mg tablet 20 mg PO DAILY #90 tabs 10/16/24 riboflavin (vitamin B2) 400 mg 400 mg PO DAILY 90 days #90 tabs 11/07/24 tablet albuterol sulfate 90 mcg/actuation 2 puff inhalation Q4-6H PRN 11/16/24 aerosol inhaler Shortness Of Breath Or Wheezing #8.5 grams doxycycline hyclate 100 mg tablet 100 mg PO DAILY 1 day #1 tab 11/21/24 Allergies Allergy/AdvReac Type Severity Reaction Status Date / Time hazelnut Allergy Severe Itching, Verified 12/16/24 11:27 coughing, and hives Penicillins [PENICILLINS] Allergy Severe HIVES Verified 12/16/24 11:27 birch Allergy Intermediate Itching Verified 12/16/24 11:27 Iodinated Contrast Media Allergy Intermediate HIVES Verified 12/16/24 11:27 [IV CONTRAST] peanut [PEANUTS] Allergy Intermediate HIVES Verified 12/16/24 11:27 shellfish derived Allergy Intermediate HIVES Verified 12/16/24 11:27 [SHELLFISH DERIVED] almond Allergy Mild Hives Verified 12/16/24 11:27 cat dander Allergy Mild cough/hives Verified 12/16/24 11:27 dog dander Allergy Mild cough/hives Verified 12/16/24 11:27 pollen extracts Allergy Mild runny Verified 12/16/24 11:27 nose, itchy eyes Review of Systems Review of Systems Yes all other systems are reviewed and are negative Constitutional: Reports as per [facility] Past Medical History Attestation statement: The following information was validated with the patient. Source: old records reviewed Medical History Renal calculi Insomnia HLA-B27 spondyloarthropathy Osteoarthritis of multiple joints Hydronephrosis, bilateral Osteopenia Sacroiliac joint pain Encounter for medication monitoring Palpitations Gastritis Fibromyalgia Hx of small bowel obstruction Abdominal pain Obesity (BMI 30-39.9) Bipolar depression Vitamin D deficiency Migraine Allergic rhinitis Mild intermittent asthma without complication Pure hypercholesterolemia Primary osteoarthritis of right hip Lumbar spondylosis Surgical History S/P ureteral stent placement History of total hip arthroplasty (~08/15/23) S/P cystourethroscopy with dilation of urethral stricture (~07/21/20) History of esophagogastroduodenoscopy (EGD) Hx of unilateral oophorectomy Hx of colonoscopy Hx of cholecystectomy Hx of cystoscopy History of extraction of renal calculus History of carpal tunnel surgery History of hand surgery History of hysterectomy Family History Family History Father Kidney problem Diabetes Mother Kidney malignancy Diabetes Brother Asthma Diabetes Social History Social History Household Members: Spouse Housing: House Are you a primary child caregiver private home to a significant other at home: No Do you presently have visiting nurse or other home services: Yes Unable to assess alcohol history related to: Unknown Alcohol intake: never Comment: counts correct Patient Tobacco Use Status: Never used Tobacco Smoked in Last 30 Days: No e-Cigarette/Vaping Use: Never Used Second Hand Smoke Exposure: No Use of substances other than those prescribed or required for medical reasons: No Advance Directives: Yes Advance Directives on File: Yes Advance Directives Date on File: 08/08/23 service: No Current occupational status: disabled Cognitive needs: No Hearing needs: No Vision needs: Yes Physical Exam ED Vital Signs: Vital Signs - 24 hr 12/16/24 11:24 12/16/24 12:13 12/16/24 14:40 Temperature 98.4 F 97.9 F Pulse Rate 66 62 66 Respiratory Rate 20 16 Blood Pressure 112/62 120/66 115/64 Pulse Oximetry 94 97 95 Oxygen Delivery Method Room Air Room Air Room Air 12/16/24 14:45 Temperature 97.9 F Pulse Rate 66 Respiratory Rate 16 Blood Pressure 115/64 Pulse Oximetry 95 Oxygen Delivery Method Room Air BMI result Body Mass Index 38.3 Const General: cooperative, healthy appearing and no acute distress Orientation/consciousness: patient oriented x3 Limitations: no limitations HENMT Head: Yes normal to inspection and Yes atraumatic Ears: hearing grossly normal bilaterally General nose exam: Normal external nose present Face and sinus: Yes normal facial exam Eyes General: appearance normal, both eyes and all related structures EOM: EOMs intact bilaterally Neck Neck: Yes normal visual inspection and Yes no meningeal signs Resp Effort & Inspection: normal respiratory effort and no respiratory distress Auscultation: clear to auscultation bilaterally Cardio Rate: regular rate Heart sounds: S1 normal heart sound present and S2 normal heart sound present GI Inspection: Yes normal to inspection Palpation (GI): Soft to palpation, nontender, no guarding and not rigid General: Yes no CVA tenderness Back/Spine/Pelvis Back: no CVA tenderness Skin Rashes: no rashes Wounds: no wounds Neuro General: patient oriented x3, tone normal and no meningeal signs Cranial nerves: Yes CN's II-XII intact bilaterally Gait exam (Neuro): Normal gait present Extrem General: Yes normal to inspection Course Course Course Narrative: -1246-- mild leukocytosis of 12.7 likely reactive from nausea/vomiting - labs are otherwise reassuring -1432-- troponin negative, mi unlikely > on re-evaluation patient reports symptomatic improvement. Has tolerated p.o. in the ED without difficulty. Comfortable for discharge home at this time Results discussed with patient including worrisome signs and symptoms and strict return precautions, and when to return to the emergency department. They verbalized understanding and feel safe for discharge at this time. Medical Decision Making Medical Decision Making [facility] Narrative: 54-year-old female with a past medical history of insomnia, fibromyalgia, bipolar, migraines, asthma, HLD, GERD, IBS, presenting to the ED via EMS complaining of epigastric abdominal pain, nausea, vomiting, lightheadedness and chills since last night. on exam vital signs stable, NAD, nontoxic appearing, abdomen is soft and nontender, no CVAT. Concern for acute on chronic IBS vs GERD vs pancreatitis vs colitis. Lower suspicion for acute diverticulitis/ appendicitis or renal stones / pyelo without tenderness on exam. Rule out atypical ACS Plan: EKG, labs, UA, pain control, re-evaluate/p.o. trial Please refer to course for remaining clinical decision making, interpretation of labs/imaging results, and discussions with consultants and/or family members. Differential Diagnosis Differential Diagnoses: The differential diagnosis associated with the presentation includes As above Admission/Observation Consideration of admission/observation: Escalation of care including admission/observation considered Lab Data MDM Lab Attestation statement: I reviewed the patient's lab results. 12/16/24 11:35 12/16/24 11:35 Labs: Lab Results 12/16/24 12/16/24 Range/Units 11:35 13:00 WBC 12.7 H (4.8-10.8) X10*3/uL RBC 4.25 (4.20-5.50) X10*6/uL Hgb 11.6 L (12.0-16.0) g/dl Hct 36.8 L (37.0-47.0) % MCV 86.6 (80.0-98.0) fL MCH 27.3 (27.0-33.0) pg MCHC 31.5 (31.0-35.0) g/dl RDW 14.3 (11.0-16.0) % Plt Count TNP MPV TNP Immature Gran % (Auto) 0.3 (0.0-0.4) % Neut % (Auto) 92.3 H (45-73) % Lymph % (Auto) 4.8 L (20-40) % [place] % (Auto) 2.2 (2-11) % Eos % (Auto) 0.0 (0-4) % Baso % (Auto) 0.4 (0-2) % Lymph # (Auto) 0.6 L (1.2-4.9) X10*3/uL [place] # (Auto) 0.3 (0.1-1.2) X10*3/uL Eos # (Auto) 0.0 (0.0-0.4) X10*3/uL Baso # (Auto) 0.1 (0.0-0.2) X10*3/uL Abs Immat Gran (auto) 0.04 H (0.00-0.03) X10*3/uL Absolute Neuts (auto) 11.7 H (2.0-8.3) x10*3/uL Absolute Nucleated RBC 0.000 (0.0-0.012) X10*3/uL Nucleated RBC % (auto) 0.0 (0.0-0.2) /100WBC Smear Tech's Comments VERIFIED Sodium 141 (135-145) mmol/L Potassium 3.8 (3.3-5.1) mmol/L Chloride 110 H (96-108) mmol/L Carbon Dioxide 20 L (22-29) mmol/L Anion Gap 15 (12-20) BUN 11 (9-16) mg/dL Creatinine 0.70 (0.5-1.4) mg/dL Estim Creat Clear Calc 92.2 Estimated GFR > 60 Random Glucose 128 H (60-115) mg/dL Calcium 8.9 (8.4-10.2) mg/dL Magnesium 1.7 (1.6-2.6) mg/dL Total Bilirubin 0.5 (0.0-1.0) mg/dL Direct Bilirubin 0.1 (0.0-0.5) mg/dL AST 15 (5-31) U/L ALT 11 (0-31) U/L Alkaline Phosphatase 79 (39-117) U/L Troponin I High Sens < 2.7 (<3.5-17.0) ng/L Total Protein 7.0 (6.5-8.0) g/dL Albumin 3.9 (3.5-5.0) g/dL Lipase 29 (8-78) U/L Urine Color Dark Yellow Urine Appearance Clear Urine pH 7.0 (5.0-9.0) Ur Specific [place] 1.020 (1.005-1.025) Urine Protein 30 (1+) H (Neg-Trace) mg/dL Urine Glucose (UA) Negative (Negative) mg/dL Urine Ketones Trace (Negative) mg/dL Urine Blood Negative (Negative) Urine Nitrite Negative (Negative) Ur Leukocyte Esterase Small (1+) H (Negative) Urine RBC 0-2 (0-2) /HPF Urine WBC 6-10 (0-5) /HPF Ur Squamous Epith Cells 0-2 (0-2) /HPF Urine Bacteria None Seen (None Seen) Hyaline Casts 0-2 (0-2) /LPF Urine Test NEGATIVE (NEGATIVE) Independent Interpretation I performed an independent interpretation of an: EKG ( my interpretation EKG normal sinus rhythm rate of 72. VT interval 126. QTC 435. No significant change when compared to prior. No STEMI) Radiology Impression Discussion of test interpretation with radiology: I have reviewed the radiologist's reading. Independent Historian Clinical information obtained from an independent historian. History obtained from or confirmed by: EMS External Record Review External record reviewed: Inpatient record, Office record, Outpatient record, Prior outpatient labs, Prior outpatient radiology, Primary care record and Outside ED record Tests considered The following testing was considered but not selected: As above Prescription Management I considered prescription management with: Pain Medication Chronic Conditions Patient?s care impacted by: Other Social Determinants Patient?s care significantly limited by Social Determinants of Health including: Other Social Determinant of Health Medications Administered Discontinued Medications Generic Name Dose Route Start Last Admin Trade Name Freq PRN Reason Stop Dose Admin Al Hydroxide/Mg Hydroxide 30 ml 12/16/24 11:52 12/16/24 12:05 Magnesium Hydrox/Alum Hydrox 30 Ml Oral.Susp PO 12/16/24 11:53 30 ml ONCE ONE Administration Dicyclomine HCl 20 mg 12/16/24 12:44 12/16/24 13:01 Dicyclomine Hcl 10 Mg Capsule PO 12/16/24 12:45 20 mg ONCE ONE Administration Diphenhydramine HCl 12.5 mg 12/16/24 11:52 12/16/24 12:09 Diphenhydramine Hcl 50 Mg/Ml Vial IVPUSH 12/16/24 11:53 12.5 mg ONCE ONE Administration Sodium Chloride 1,000 mls @ 999 mls/hr 12/16/24 12:00 12/16/24 12:12 Ns IV 12/16/24 13:00 999 mls/hr .Q1H1M MADELEINE Administration Metoclopramide HCl 10 mg 12/16/24 11:52 12/16/24 12:06 Metoclopramide Hcl 10 Mg/2 Ml Vial IVPUSH 12/16/24 11:53 10 mg ONCE ONE Administration Discharge Plan Discharge Clinical Impression: Epigastric abdominal pain Patient Disposition: Home, Self-Care Instructions: Abdominal Pain (ED) Additional Instructions: your blood work is reassuring today Please have close follow-up with your humanities and languages professor and primary care doctor If her symptoms persist or worsen, pain is constant /unbearable, you have difficulty or inability to eat, drink, have fever or chills return to the emergency department Prescriptions: No Action zolpidem [Ambien] 10 mg tablet 10 mg PO BEDTIME PRN (Reason: Insomnia) 30 Days Qty: 30 0RF (DME) walker Misc See Rx Instructions .MEDSUPPLY Qty: 1 0RF Rx Instructions: Folding Front wheeled walker naloxone 10 mg/0.4 mL auto-injector 10 mg subcut Q2M Qty: 4 0RF Rx Instructions: until desired response propranolol 60 mg capsule,extended release 24 hr 60 mg PO BEDTIME 30 Days Qty: 30 3RF fluticasone propionate 50 mcg/actuation spray,suspension 1 spray intranasal DAILY PRN (Reason: Congestion) Qty: 16 1RF gabapentin 800 mg tablet 800 mg PO Q8H 30 Days Qty: 90 8RF baclofen 20 mg tablet 20 mg PO BID 30 Days Qty: 60 8RF famotidine 20 mg tablet 20 mg PO BEDTIME Qty: 90 2RF pantoprazole 40 mg tablet,delayed release (DR/EC) 40 mg PO QAM Qty: 90 2RF tramadol 50 mg tablet 50 mg PO BID Qty: 60 3RF atorvastatin 20 mg tablet 20 mg PO DAILY Qty: 90 1RF riboflavin (vitamin B2) 400 mg tablet 400 mg PO DAILY 90 Days Qty: 90 3RF albuterol sulfate 90 mcg/actuation HFA aerosol inhaler 2 puff inhalation Q4-6H PRN (Reason: Shortness Of Breath Or Wheezing) Qty: 8.5 3RF doxycycline hyclate 100 mg tablet 100 mg PO DAILY 1 Days Qty: 1 6RF Rx Instructions: dental prophylaxis-take 1 tab 1hr prior to dental exam docusate sodium 100 mg capsule 100 mg PO BID PRN (Reason: Constipation) Asmanex HFA 100 mcg/actuation HFA aerosol inhaler 1 puff inhalation BID PRN (Reason: breathing) fluticasone propionate [Flovent HFA] 220 mcg/actuation HFA aerosol inhaler 1 puff inhalation BID PRN (Reason: breathing) (DME) SHOWER CHAIR See Rx Instructions .Route .MEDSUPPLY Qty: 1 0RF Rx Instructions: As directed clonazepam [Klonopin] 1 mg tablet 1 mg PO BID montelukast [Singulair] 10 mg tablet 10 mg PO BEDTIME cetirizine [Zyrtec] 10 mg tablet 10 mg PO DAILY PRN (Reason: allergies) Restasis 0.05 % dropperette 1 drp ophthalmic (eye) Q12H Xolair 150 mg recon soln 150 mg subcut Q3W epinephrine 0.3 mg/0.3 mL auto-injector 0.3 mg IM ONCE PRN (Reason: anaphylaxis) Lumigan 0.01 % drops 1 drp ophthalmic (eye) BEDTIME ondansetron 4 mg tablet,disintegrating 4 mg PO Q8H PRN (Reason: Nausea) Qty: 20 0RF sumatriptan succinate 100 mg tablet 25 - 100 mg PO .COMPLEX PRN (Reason: migraine headache) 30 Days Qty: 12 6RF Rx Instructions: 25 - 100 mg orally at onset of headache, may repeat in 2 hrs PRN; max 2 tabs per day or 4 tabs/week (may take with Ibuprofen or Tylenol) magnesium oxide 400 mg (241.3 mg magnesium) tablet 400 mg PO BEDTIME 30 Days Qty: 30 6RF Rx Instructions: may hold for loose stools cholecalciferol (vitamin D3) 50 mcg (2,000 unit) capsule 50 mcg PO DAILY naloxone [Narcan] 4 mg/actuation spray,non-aerosol 4 mg intranasal Q2M PRN (Reason: opioid overdose) Qty: 2 2RF Rx Instructions: spray 1 dose into ONE nostril; alternate nostrils w each dose until help arrives valacyclovir 1 gram tablet 2,000 mg PO ONCE Qty: 2 0RF Nurtec ODT 75 mg tablet,disintegrating 75 mg PO ONCE MDD 1 tab PRN (Reason: migraine headache) 30 Days Qty: 16 3RF magnesium chloride 64 mg tablet,delayed release (DR/EC) 64 mg PO BEDTIME 30 Days Qty: 30 6RF bupropion HCl 300 mg tablet extended release 24 hr PO DAILY dorzolamide-timolol (PF) [Cosopt (PF)] 2-0.5 % dropperette ophthalmic (eye) BID cyanocobalamin (vitamin B-12) 1,000 mcg tablet extended release 1,000 mcg PO DAILY Qty: 90 3RF Referrals: [facility] Gastroenterology Services [Provider Group] - 1 week Christ Goodwin MD [Primary Care Provider] - 5 days Interventions: ED Discharge Assessment Last Done: 12/16/24 14:45 Discharge Date/Time: 12/16/24 14:46 Print Language: Georgian
[2024-12-16 12:50] LABS: Alkaline Phosphatase 79 U/L (39-117)
[2024-12-16] MEDS: Dicyclomine HCl 10 MG CAPSULE 20 MG PO (13:01)
[2024-12-16 13:09] LABS: Appearance Urine Clear; Color Urine Dark Yellow; Glucose Urine UA Negative (Negative); Leukocyte Esterase Urine Small (1+) (Negative); Nitrite Urine Negative (Negative); UMIC TRIGGER UACC YES; UPreg QC Valid YES; Urine Blood Negative (Negative); Urine Ketones Trace mg/dL (Negative); Urine Protein 30 (1+) mg/dL (Neg-Trace)
[2024-12-16 13:10] LABS: Urine Pregnancy NEGATIVE (NEGATIVE)
--- NOTE | 2024-12-16 13:15 | PC.NURSE ---
Late entry NCAL Bolus completed.
[2024-12-16 13:18] LABS: Bacteria Urine None Seen (None Seen); Hyaline Casts Urine 0-2 /LPF (0-2); RBC Urine 0-2 /HPF (0-2); Squamous Epithelial Cell Urine 0-2 /HPF (0-2); UACC Culture Trigger YES
--- OUTSIDE RECORDS SUMMARY | 2024-12-16 13:19 | XMS_ITS | Clinical Summary ---
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 16 g [...] 10/21/2014 Nephrolithiasis 08/19/2014 Overview (02/15/2015): Follows at [facility] Urolog Lt ureteroscopy with manipulation of lt renal stone and stent placed at [facility] January 27 2015 S/P unilateral salpingo-oophorectomy. LEFT 05/05 Overview (05/22/2014): [place] [facility] [place] History of normal mammogram 04/16/2014 History of cervical cancer 01/26/2014 Overview (01/26/2014): Seen by movie projectionist/onc [place] [facility] [place]sterectomy, had +nodes, received chemo and radiation On Estrogen She has persistent ovarian cyst and will undergo resection around April: explorat laparotomy, biopsy, etc Migraine headache 01/26/2014 Overview (01/26/2014): Has seen [facility] [place] Prescribed IC NAratriptan HCL 2.5mg HLD [...] any activities above her usual. Asthma exacerbation (HHS-HCC) Bipolar 1 disorder (HCC-CMS) Overview (01/26/2014): Follows with Psych: Benitez Nick MD at [address] On: Celexa, Ambien and Klonopin Resolved Problems Problem Noted Date Diagnosed Date Resolved Date Anxiety 01/26/2014 Gallstone 01/26/2014 Immunizations Immunization Administration Dates Next Due INFLUENZA, SEASONAL, INJECTABLE [...] Plan of Treatment Not on file Insurance [place] Care Teams Asphalt Mixing Machine Operator Relationship Specialty Start Date End Date Teresa Vega PA-C [address] [place] [address] PCP - General 10/01/18
[2024-12-16 13:56] LABS: Magnesium 1.7 mg/dL (1.6-2.6)
[2024-12-16 14:01] LABS: Troponin-I High Sensitivity < 2.7 ng/L (<3.5-17.0)
[2024-12-16 14:40] VITALS: BP 115/64; PULSE 66; RESP 16; TEMP 36.6; O2SAT 95
[2024-12-16 14:45] VITALS: BP 115/64; PULSE 66; RESP 16; TEMP 36.6; O2SAT 95
== END 2024-12-16 14:46 | disposition home or self-care (01) ==
PROVIDERS: Physician Assistant; Emergency Provider Emergency Medicine; PCP Internal Medicine
DX: R10.13 Epigastric pain (principal); E78.00 Pure hypercholesterolemia, unspecified; J45.909 Unspecified asthma, uncomplicated; Z79.02 Long term (current) use of antithrombotics/antiplatelets; Z79.899 Other long term (current) drug therapy
CPT/HCPCS: 36415; 80048; 80076; 81001; 81025; 83690; 83735; 84484; 85025; 87086; 93005; 96374; 96375; 99284; 99285; J1200; J2765

== ENCOUNTER → 2024-12-16 12:20 | Outpatient (BNV) | payer OTHER, SELFPAY | PROVIDERS: Emergency Provider Emergency Medicine; PCP Internal Medicine; Visit Provider Internal Medicine Cardiovascular Disease | DX: R10.9 Unspecified abdominal pain (principal) | CPT/HCPCS: 93010 ==

== ENCOUNTER 2024-12-17 14:51 | Outpatient (AMB) | payer OTHER, SELFPAY ==
--- OUTSIDE RECORDS SUMMARY | 2024-12-17 14:54 | XMS_ITS | Clinical Summary ---
Author Organization [facility] Address [address] [place] [address] Care Team Providers Care Engineering Faculty Name Role Phone Teresa Vega PA-C Primary Care Provider [phone] Source Comments PLEASE NOTE, if this patient [...] mcg/actuation nasal sprayIndication s:Seasonal allergies Place 1 [place] into the nostril(s) once daily. 16 g [...] Nephrolithiasis 08/19/2014 Overview (02/15/2015): Follows at [facility] Urolog Lt ureteroscopy with manipulation of lt renal stone and stent placed at [facility] January 27 2015 S/P unilateral salpingo-oophorectomy. LEFT 05/05 Overview (05/22/2014): Done at [facility] on 05/05/14 History of normal mammogram 04/16/2014 History of cervical cancer 01/26/2014 Overview (01/26/2014): Seen by golf caddy/onc at [facility] Sp Hysterectomy, had +nodes, received chemo and radiation On Estrogen She has persistent ovarian cyst and will undergo resection around April: explorat laparotomy, biopsy, etc Migraine headache 01/26/2014 Overview (01/26/2014): Has seen [facility] Neuro Prescribed IC NAratriptan HCL 2.5mg HLD [...] Plan of Treatment Not on file Insurance [place] Care Teams Engineering Faculty Relationship Specialty Start Date End Date Teresa Vega PA-C [address] [place] [address] PCP - General 10/01/18
--- OUTSIDE RECORDS SUMMARY | 2024-12-17 14:54 | XMS_ITS | Clinical Summary ---
Author Organization [facility] Address [address] [place] [address] Phone Care Team Providers Care Adviser Sales Name Role Phone Christ Silva MD Primary Care Provider [phone] Allergies No known active allergies Social History [...] age to complete this topic Meningococcal B Vaccine Aged Out No l onger eligible based on patient's age to complete this topic RSV Immunization Patients Under 20 months Aged Out No longer eligible based on patient's age to complete this topic Varicella Vaccines Aged Out No longer eligible based on patient's age to complete this topic Procedures Procedure Name Priority Date/Time Associated Diagnosis Comments [facility] Routine 12/20/2020 7:17 PM EDT Encounter for screening mammogram for malignant neoplasm of breast from Last 3 Months or Most Recently Relevant to Health Maintenance Results * [facility] (12/20/2020 7:17 PM EDT) Anatomical Region Laterality Modality Mammography 12/20/2020 2:13 PM EDT Narrative 12/20/2020 7:[address] [facility] Diagnostic Imaging Department [address] [place] [address] [id number] Patient: ??ELISHA MILLS ?/Age/Sex: 1970 - 50 - F Unit#: ??[id number] ? Location/Status: ??SPDIMAM/REG CLI ? Mnemonic/Ordering Site: ??DIGSC/SPMAM Ordering Physician: ??CHRIST SILVA MD Leroy Screening Digital - 12/20/20 - 1508 History: Bilateral breast cancer screening. Technique: Digital mammography. Conventional CC and MLO projections with tomosynthesis MLO views and computer aided detection Findings: Comparison:[facility] 08/21/2019, dating back to 03/09/2011. Breast tissue is mostly fatty replaced (category a density) bilaterally (as calculated by [employer] software). There are benign calcifications on the right. ?? There is no suspicious group of microcalcification, no suspicious mass, architectural distortion or suspicious asymmetry. Impression: ??No evidence of malignancy. BIRADS category 2, benign findings, 3342F 89964, 15244 Note: Patient information entered ??into a reminder system with a target due date for the next mammogram; PQRI II 3462F Dictating Physician: ??MIKEY ROMAN MD Electronically Signed by: ??MIKEY ROMAN MD Dic Date/Time: ??12/20/201916 Sign date/Time: ??12/20/201916 Procedure Note Mikey Roman MD - 07/25/2022 [facility] Diagnostic Imaging Department [address] [place] [address] Patient: ELISHA MILLS /Age/Sex: 1970 - 50 - F Unit#: [id number] Location/Status: SPDIMAM/REG CLI Mnemonic/Ordering Site: [facility] Ordering Physician: CHRIST SILVA MD Leroy Screening Digital - 12/20/20 - 1508 History: Bilateral breast cancer screening. Technique: Digital mammography. Conventional CC and MLO projections with tomosynthesis MLO views and computer aided detection Findings: Comparison:[facility] 08/21/2019, dating back to 03/09/2011. Breast tissue is mostly fatty replaced (category a density) bilaterally(as calculated by [employer] software). There are benign calcificationson the right. There is no suspicious group of microcalcification, no suspiciousmass, architectural distortion or suspicious asymmetry. Impression: No evidence of malignancy. BIRADS category 2, benign findings, 3342F 07583, 28955 Note: Patient information entered into a reminder system with a targetdue date for the next mammogram; PQRI II 7026F Dictating Physician: MIKEY ROMAN MD Electronically Signed by: MIKEY ROMAN MD Dic Date/Time: 12/20/201916 Sign date/Time: 12/20/201916 Christ Silva MD IMG BI PROCEDURES Final Resu lt from Last 3 Months or Most Recently Relevant to Health Maintenance Insurance [place]ICAID - [place] Care Teams Adviser Sales Relationship Specialty Start Date End Date Christ Silva MD [address] [place] [address] Dr [address] [place] PCP - General Internal Medicine 07/01/24
--- NOTE | 2024-12-17 14:57 | MHC.OFFVIS ---
Vital Signs 12/17/24 14:58 Height 5 ft Weight 191 lb 5.78 oz BMI 37.4 BP 120/70 Blood Pressure Location Lt brachial Position Sitting Pulse 77 Pulse Source Pulse Oximeter Pulse Oximetry (%) 97 Oxygen Delivery Method Room Air Intake Visit Reasons: OA Intake Note: Patient presents for follow up on gout and lab review. Allergies hazelnut Allergy (Severe, Verified 12/17/24 15:01) Itching, coughing, and hives Penicillins [PENICILLINS] Allergy (Severe, Verified 12/17/24 15:01) HIVES birch Allergy (Intermediate, Verified 12/17/24 15:01) Itching Iodinated Contrast Media [IV CONTRAST] Allergy (Intermediate, Verified 12/17/24 15:01) HIVES peanut [PEANUTS] Allergy (Intermediate, Verified 12/17/24 15:01) HIVES shellfish derived [SHELLFISH DERIVED] Allergy (Intermediate, Verified 12/17/24 15:01) HIVES almond Allergy (Mild, Verified 12/17/24 15:01) Hives cat dander Allergy (Mild, Verified 12/17/24 15:01) cough/hives dog dander Allergy (Mild, Verified 12/17/24 15:01) cough/hives pollen extracts Allergy (Mild, Verified 12/17/24 15:01) runny nose, itchy eyes Medication List - Last Reconciled 12/17/24 by Taylor Adams MD albuterol sulfate 90 mcg/actuation 2 puffs inhalation Q4-6H PRN atorvastatin 20 mg PO DAILY baclofen 20 mg PO BID 30 days bimatoprost 0.01% (Lumigan) 1 drp ophthalmic (eye) BEDTIME bupropion HCl XL mg PO DAILY cetirizine (Zyrtec) 10 mg PO DAILY PRN cholecalciferol (vitamin D3) 50 mcg PO DAILY clonazepam (Klonopin) 1 mg PO BID cyanocobalamin (vitamin B-12) ER 1,000 mcg PO DAILY cyclosporine 0.05% (Restasis) 1 drp ophthalmic (eye) Q12H docusate sodium 100 mg PO BID PRN dorzolamide-timolol (PF) 2-0.5 % (Cosopt (PF)) drps ophthalmic (eye) BID doxycycline hyclate 100 mg PO DAILY 1 day epinephrine 0.3 mg IM ONCE PRN famotidine 20 mg PO BEDTIME fluticasone propionate 220 mcg/actuation (Flovent HFA) 1 puff inhalation BID PRN fluticasone propionate 50 mcg/actuation 1 spray intranasal DAILY PRN gabapentin 800 mg PO Q8H 30 days magnesium chloride 64 mg PO BEDTIME 30 days magnesium oxide 400 mg PO BEDTIME 30 days mometasone 100 mcg/actuation (Asmanex HFA) 1 puff inhalation BID PRN montelukast (Singulair) 10 mg PO BEDTIME naloxone 4 mg/actuation (Narcan) 4 mg intranasal Q2M PRN naloxone 10 mg (0.4 mL) subcut Q2M omalizumab (Xolair) 150 mg subcut Q3W ondansetron 4 mg PO Q8H PRN pantoprazole 40 mg PO QAM propranolol ER 60 mg PO BEDTIME 30 days riboflavin (vitamin B2) 400 mg PO DAILY 90 days rimegepant (Nurtec ODT) 75 mg PO ONCE PRN 30 days MDD 1 tab [SHOWER CHAIR As directed] sumatriptan succinate 25 - 100 mg orally at onset of headache, may repeat in 2 hrs PRN; max 2 tabs per day or 4 tabs/week (may take with Ibuprofen or Tylenol) 30 days tramadol 50 mg PO BID valacyclovir 2,000 mg (2 x 1 gram) PO ONCE walker Folding Front wheeled walker zolpidem (Ambien) 10 mg PO BEDTIME PRN 30 days HPI Comments Details: Patient is a 54-year-old female with asthma, hyperlipidemia, depression, osteoarthritis and fibromyalgia here today for follow up Interval History: Patient last seen 06/18/[address] Britt. At that time she was following up for her polyarticular osteoarthritis and fibromyalgia. She got her right hip replaced in 2023 and was doing much better since that. She does note worsening in her back pain and is currently seeing pain management for back injections. Today patient continues to complain of back pain. She is awaiting word from pain management. With respect to her hip has been having improvement in her right hip post her surgery. Continuing with PT. Reports that the tramadol helps her but she definitely feels the waning of effect close to when the second dose is due. Rheumatologic History: Patient with a history of low back pain dating back to 1996 at receiving radiation for cervical cancer. Was told at that time that she had vertebral fractures at T10 and T11. Tried physical therapy and cortisone injections for her pain without relief. 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 She was on Humira for 1 year then methotrexate and sulfasalazine without relief in her pain. MRI of her pelvis was done subsequently which did not show any evidence of inflammation and she was diagnosed with osteoarthritic change and degenerative joint disease of her spine. Current Rheumatology Medication(s): Tramadol 50 mg twice a day [facility] Medical History (Updated 12/17/24 @ 15:15 by Taylor Adams MD) Renal calculi Insomnia Osteoarthritis of multiple joints Hydronephrosis, bilateral Osteopenia Sacroiliac joint pain Encounter for medication monitoring Palpitations Gastritis Fibromyalgia Hx of small bowel obstruction Abdominal pain Obesity (BMI 30-39.9) Bipolar depression Vitamin D deficiency Migraine Allergic rhinitis Mild intermittent asthma without complication Pure hypercholesterolemia Primary osteoarthritis of right hip Surgical History S/P ureteral stent placement History of total hip arthroplasty (~08/15/23) S/P cystourethroscopy with dilation of urethral stricture (~07/21/20) History of esophagogastroduodenoscopy (EGD) Hx of unilateral oophorectomy Hx of colonoscopy Hx of cholecystectomy Hx of cystoscopy History of extraction of renal calculus History of carpal tunnel surgery History of hand surgery History of hysterectomy Family History Father Kidney problem Diabetes Mother Kidney malignancy Diabetes Brother Asthma Diabetes Social History Household Members: Spouse Housing: House Are you a primary menagerie caretaker to a significant other at home: No Do you presently have visiting nurse or other home services: Yes Unable to assess alcohol history related to: Unknown Alcohol intake: never Comment: counts correct Patient Tobacco Use Status: Never used Tobacco e-Cigarette/Vaping Use: Never Used Second Hand Smoke Exposure: No Advance Directives Date on File: 08/08/23 service: No Current occupational status: disabled Cognitive needs: No Hearing needs: No Vision needs: Yes Review of Systems Const Details: Review of Systems Constitutional: Denies fever, chills, weight loss ENT: Denies vision changes, eye pain or eye redness, dental caries, dry mouth GI: Denies nausea, vomiting, diarrhea, abdominal pain, change in BM Pulm: Denies SOB, ARENAS, hemoptysis, wheezing Cards: Denies chest pain, palpitations Skin: Denies Raynaud's, rash, nail changes, photosensitivity, BULB SORTER: Denies headaches, weakness, paresthesias, recurrent falls MSK: as per HPI All other systems reviewed and are unremarkable except noted above Physical Exam Vital Signs: Last Vital Signs Pulse 77 12/17/24 14:58 BP 120/70 12/17/24 14:58 Pulse Ox 97 12/17/24 14:58 Oxygen Delivery Method Room Air 12/17/24 14:58 BMI result Body Mass Index 37.4 Vital signs reviewed Physical Examination CONSTITUITIONAL Patient alert and cooperative. Well appearing and in no apparent painful distress HEENT Conjunctiva and sclera clear. ?Pupils equal round and reactive to light. ?No lymphadenopathy. ? CHEST/RESPIRATORY SYSTEM Normal respiratory effort and able to speak in complete sentences. ?Clear to auscultation bilaterally. ?No crackles, rales, rhonchi, wheezes heard. CARDIAC SYSTEM Regular rate and rhythm. ?S1 and S2 heard no murmurs. ?Radial pulses intact bilaterally MSK Hands: ?Able to make a fist. No synovitis noted to the MCPs, PIPs or DIPs. ?No tenderness to palpation of these joints. No deformities noted. ? Wrists: ?Full range of motion at the wrists without pain. ?No tenderness to palpation or synovitis noted to the wrists. Elbows: Full range of motion without pain. No tenderness, weakness, swelling, increased warmth or erythema. Shoulders: Full range of active range of motion without pain. No tenderness, weakness, swelling, increased warmth or erythema. Knees: ?Full range of motion. ?No tenderness, swelling, increased warmth or erythema.?No effusion but bilateral crepitations felt Ankles: Full range of motion. ?No tenderness, swelling, increased warmth or erythema.? Feet: ?Negative squeeze test. ?No tenderness to palpation or swelling of the MTPs. Tender points:?No tenderness to palpation of the bilateral trapezius, supraspinatus, greater trochanters, anterior costochondral junctions, bilateral gluteal areas, bilateral suboccipital muscle insertions SKIN Skin intact without rashes. Results Reviewed Results Reviewed: Laboratory Tests 10/03/24 12/16/24 12:24 11:35 WBC 12.7 H RBC 4.25 Hgb 11.6 L Hct 36.8 L Plt Count 375 D Sodium 141 Potassium 3.8 Chloride 110 H Carbon Dioxide 20 L BUN 11 Creatinine 0.70 AST 15 ALT 11 MRI L spine 04/2024 FINDINGS: CORONAL ALIGNMENT: Normal. SAGITTAL ALIGNMENT: There is 4 mm of grade 1 degenerative spondylolisthesis at L4-L5 without spondylolysis. The remainder of the lumbar spine is anatomically aligned. LUMBOSACRAL JUNCTION: Normal. There are 5 fyx-ige-sdcupum lumbar-type vertebral bodies. VERTEBRAL BODIES: There is gpow-jx-mvjngofy anterior wedging of the L1 vertebral body which appears chronic and healed. There is slight anterior wedging of T12 which appears chronic and healed and there is moderate anterior wedging of T11, also chronic and healed. Otherwise vertebral body heights are well maintained. No significant retropulsion. DISC SPACES AND ENDPLATES: There are mild degrees of disc volume loss at L3-L4, L4-L5 and L5-S1 with mild degrees of loss of intradiscal T2-weighted signal at these levels with central Schmorl's nodes at the levels between L1-L2 and L3-L4 inclusive, with whlk-jf-tfleilcp degrees of anterolateral spondylosis throughout the lumbar spine. There is vnlv-xu-xpcvwvrr disc volume loss at L1-L2. There are central Schmorl's nodes at T12-L1 with moderate anterior marginal spondylosis asymmetric to the right. Nbailyjg-qe-cponql disc volume loss at T11-T12 with disc desiccation, Schmorl's nodes and moderate spondylosis. Central Schmorl's nodes, disc desiccation, bqkb-mp-keusshxm volume loss and mild spondylosis at T10-T11. SPINAL CANAL: No abnormal developmental findings. BONE MARROW: No suspicious marrow-replacing process or bone marrow edema. CONUS MEDULLARIS: Terminates at L1. Morphology and signal is normal. INTRADURAL NERVE ROOTS: Within normal limits. L5-S1: There is concentric disc bulging with superimposed broad-based central extruded disc herniation with mild caudal migration encroaching on the ventral epidural fat without S1 nerve root impingement or thecal sac encroachment. There is bylw-hx-plpwvycv bilateral facet joint arthropathy without significant canal stenosis. There is qirl-lr-axnormss left-sided and moderate right-sided foraminal stenosis, with a superimposed right foraminal disc herniation impinging on the exiting right L5 nerve root. L4-L5: Unroofing of the posterior disc margin is noted consistent with grade 1 spondylolisthesis. There is pseudodisc bulging with a superimposed left-sided foraminal/extraforaminal disc protrusion. There is krtn-iv-txeuummi flattening of the ventral dural sac and there is ligamentum flavum thickening with zomypkwa-mh-fssffh bilateral facet joint arthrosis. Mild central canal narrowing is noted and there is moderate bilateral lateral recess stenosis slightly encroaching on the traversing L5 nerve roots. Hcwu-xk-qywgydzk right and moderate left-sided foraminal stenosis is noted with disc herniation impinging on the left L4 nerve root. L3-L4: There is concentric disc bulging, with slight flattening of the ventral dural sac. There is jboj-bz-vlexpewc bilateral facet joint arthrosis without significant canal stenosis. There is mild foraminal narrowing bilaterally without neural impingement. L2-L3: Shallow broad-based central to right central disc protrusion with mild indentation of the ventral thecal sac. Minor right-sided facet joint arthropathy noted. No significant canal or neural foraminal stenosis. L1-L2: Concentric disc bulging is noted, with superimposed central disc protrusion and flattening of the ventral dural sac. No significant facet joint arthrosis, canal or neural foraminal stenosis. On sagittal and axial T1 views, there is broad-based central extruded disc herniation at T11-T12 with slight caudal migration without cord impingement. There is mild ventral cord deformity at this level, which is likely chronic. There is ugvu-zb-spcjqbrt canal stenosis at this level and there is facet joint arthrosis bilaterally with mild bilateral foraminal narrowing. Probable right posterolateral disc osteophyte complex as well abuts the extraforaminal right T11 nerve root. PARAVERTEBRAL AND INCLUDED EXTRASPINAL SOFT TISSUES: The paravertebral soft tissues appear grossly unremarkable. Incidental note is made of left-sided hydroureteronephrosis, which is incompletely imaged. There is also some fullness of the right renal collecting system and suspicion for a 1.4 cm simple-appearing cortical cyst medial cortex lower pole right kidney. These findings are similar to the CT abdomen of 08/27/2023. IMPRESSION: 1. Grade 1 degenerative spondylolisthesis at L4-L5. 2. Multilevel DDD and spondylosis, with multilevel disc bulging and disc herniations as detailed by level above, with mild central canal stenosis at L4-L5 and moderate bilateral lateral recess stenosis at this level. 3. Multilevel bilateral facet joint arthropathy, most apparent at L4-5 and L5-S1 with multilevel bilateral foraminal stenosis, most apparent on the right at L5-S1 with right L5 nerve root impingement and on the left at L4-L5 with left L4 nerve root impingement. 4. Meup-yk-etrfquln canal stenosis at T11-T12 with a broad-based central extruded disc herniation at this level without cord impingement. Right posterolateral disc osteophyte complex at T11-T12 abuts the extraforaminal right T11 nerve root. 5. Chronic, healed compression fractures of T11, T12 and L1. 6. Significant left-sided hydroureteronephrosis, which is incompletely imaged. This finding was noted on previous CT of the abdomen of 08/27/2023 and appears similar. DEXA 03/2023 FINDINGS: LEFT FEMUR, NECK: BMD 0.944 g/cm2, Z-score -0.3, T-score -0.7, normal. LEFT FEMUR, TOTAL: BMD 1.052 g/cm2, Z-score 0.4, T-score 0.4, normal. AP SPINE L1-L4: BMD 0.959 g/cm2, Z-score -2.0, T-score -1.8, osteopenia. 10-YEAR FRACTURE RISK PREDICTION, FRAX: Major osteoporotic fracture (clinical spine, forearm, hip or shoulder) 4.1%. Hip fracture 0.1%. Assessment & Plan Assessment & Plan (1) Polyarticular osteoarthritis: Code(s): M15.9 - Polyosteoarthritis, unspecified Plan: #Polyarticular OA Patient is a 54-year-old female with polyarticular osteoarthritis involving in the spine, hips and knees. Currently stating that she feels a waning of the effect of the tramadol close to the 2nd dose of the day. We will increased tramadol 2 3 times a day to see if this will mitigate that effect. Reached out to pain management on patient's behalf to see if they can follow up with her regarding her spine injections Plan - Increase tramadol to 50mg tid - Follow up with pain management for spinal injections - RTC 6 months Plan I spent 20 minutes reviewing the record and labs, taking a history, examining the patient, discussing the treatment plan, ordering diagnostic work up and documenting in the medical record Medications: Changed From tramadol 50 mg PO BID 60 tabs 3RF M47.816 - Spondylosis without myelopathy or radiculopathy, lumbar region To tramadol 50 mg PO TID 90 days 270 tabs 1RF M47.816 - Spondylosis without myelopathy or radiculopathy, lumbar region Coding Level of Care Code Est Pt Level 3 (72059) Diagnoses Polyarticular osteoarthritis M15.9
[2024-12-17 14:58] VITALS: BP 120/70; PULSE 77; O2SAT 97; BMI 37.4
== END 2024-12-17 15:37 | disposition home or self-care (01) ==
LOC: HO.RHE 14:52
PROVIDERS: PCP Internal Medicine; Visit Provider Student in an Organized Health Care Education/Training Program
DX: M15.9 Polyosteoarthritis, unspecified (principal)
CPT/HCPCS: 99213

== ENCOUNTER → 2024-12-17 14:51 | Outpatient (BNVA) | payer OTHER, SELFPAY | PROVIDERS: PCP Internal Medicine; Visit Provider Student in an Organized Health Care Education/Training Program | DX: M15.9 Polyosteoarthritis, unspecified (principal); M79.7 Fibromyalgia; M47.816 Spondylosis without myelopathy or radiculopathy, lumbar region | CPT/HCPCS: 99212 ==

== ENCOUNTER 2025-01-22 12:53 | Outpatient (REF) | payer OTHER, SELFPAY ==
[2025-01-22 13:15] LABS: MANUAL DIFF FLAG NO
[2025-01-22 13:51] LABS: Basophils Absolute Auto 0.1 X10*3/uL (0.0-0.2); Basophils Percent Auto 0.6 % (0-2); Eosinophils Absolute Auto 0.2 X10*3/uL (0.0-0.4); Eosinophils Percent Auto 2.7 % (0-4); Hematocrit 39.6 % (37.0-47.0); Hemoglobin 12.1 g/dl (12.0-16.0); Imm Gran Abs Auto 0.03 X10*3/uL (0.00-0.03); Imm Gran Pct Auto 0.4 % (0.0-0.4); Lymphocytes Absolute Auto 1.2 X10*3/uL (1.2-4.9); Lymphocytes Percent Auto 15.2 % (20-40); Mean Corpuscular HGB Conc 30.6 g/dl (31.0-35.0); Mean Corpuscular Hemoglobin 26.8 pg (27.0-33.0); Mean Corpuscular Volume 87.6 fL (80.0-98.0); Mean Platelet Volume 10.8 fL (9.4-12.3); Monocytes Absolute Auto 0.4 X10*3/uL (0.1-1.2); Monocytes Percent Auto 5.1 % (2-11); Platelet Count 332 X10*3/uL (160-400); Red Blood Count 4.52 X10*6/uL (4.20-5.50); White Blood Count 7.8 X10*3/uL (4.8-10.8)
--- OUTSIDE RECORDS SUMMARY | 2025-01-22 14:02 | XMS_ITS | Clinical Summary ---
Author Organization [facility] Address [address] [place] [address] Phone Care Team Providers Care Field Kiln Burner Name Role Phone Christ Silva MD Primary Care Provider [phone] Allergies No known active allergies Social History [...] Procedure Name Priority Date/Time Associated Diagnosis Comments [facility] Routine 12/20/2020 7:17 PM EDT Encounter for screening mammogram for malignant neoplasm of breast from Last 3 Months or Most Recently Relevant to Health Maintenance Results * [facility]EN[facility] (12/20/2020 7:17 PM EDT) Anatomical Region Laterality Modality Mammography 12/20/2020 2:13 PM EDT Narrative 12/20/2020 7:17 PM EDT [facility] Diagnostic Imaging Department [address] [place] [id number] Patient: ELISHA MILLS /Age/Sex: 1970 - 50 - F Unit#: [id number] Location/Status: SPDIMAM/REG CLI Mnemonic/Ordering Site: DIGSC/SPMAM Ordering Physician: CHRIST SILVA MD Leroy Screening Digital - 12/20/20 - 1508 History: Bilateral breast cancer screening. Technique: Digital mammography. Conventional CC and MLO projections with tomosynthesis MLO views and computer aided detection Findings: Comparison:[facility] 08/21/2019, dating back to 03/09/2011. Breast tissue is mostly fatty replaced (category a density) bilaterally (as calculated by [employer] software). There are benign calcifications on the right. There is no suspicious group of microcalcification, no suspicious mass, architectural distortion or suspicious asymmetry. Impression: No evidence of malignancy. BIRADS category 2, benign findings, 3342F 86940, 10441 Note: Patient information entered into a reminder system with a target due date for the next mammogram; PQRI II 7094F Dictating Physician: MIKEY ROMAN MD Electronically Signed by: MIKEY ROMAN MD Dic Date/Time: 12/20/201916 Sign date/Time: 12/20/201916 Procedure Note Mikey Roman MD - 07/25/2022 [facility] Diagnostic Imaging Department [address] [place] [id number] Patient: DIMPLEELISHA /Age/Sex: 1970 - 50 - F Unit#: [id number] Location/Status: SPDIMA/[facility] CLI Mnemonic/Ordering Site: [facility] Ordering Physician: CHRIST SILVA MD Leroy Screening Digital - 12/20/20 - 1508 History: Bilateral breast cancer screening. Technique: Digital mammography. Conventional CC and MLO projections with tomosynthesis MLO views and computer aided detection Findings: Comparison:[facility] 08/21/2019, dating back to 03/09/2011. Breast tissue is mostly fatty replaced (category a density) bilaterally(as calculated by [employer] software). There are benign calcificationson the right. There is no suspicious group of microcalcification, no suspiciousmass, architectural distortion or suspicious asymmetry. Impression: No evidence of malignancy. BIRADS category 2, benign findings, 3342F 91612, 12060 Note: Patient information entered into a reminder system with a targetdue date for the next mammogram; PQRI II 70F Dictating Physician: MIKEY ROMAN MD Electronically Signed by: MIKEY ROMAN MD Dic Date/Time: 12/20/201916 Sign date/Time: 12/20/201916 Christ Silva MD IMG BI PROCEDURES Final Resu lt from Last 3 Months or Most Recently Relevant to Health Maintenance Insurance MEDICAID - [place] Care Teams Field Kiln Burner Relationship Specialty Start Date End Date Christ Silva MD [address] [place] [address] [place], [place] [id number] PCP - General Internal Medicine 07/01/24
[2025-01-22 14:22] LABS: Alanine Aminotransferase 16 U/L (0-31); Albumin Level 4.6 g/dL (3.5-5.0); Alkaline Phosphatase 81 U/L (39-117); Anion Gap 14 (12-20); Aspartate Amino Transferase 17 U/L (5-31); Bilirubin Total 0.5 mg/dL (0.0-1.0); Blood Urea Nitrogen 12 mg/dL (9-16); Calcium 9.7 mg/dL (8.4-10.2); Carbon Dioxide 25 mmol/L (22-29); Chloride 108 mmol/L (96-108); Estimated Glomerular Filt Rate > 60; Glucose Random 85 mg/dL (60-115); Iron 47 mcg/dL (30-160); Percent Iron Saturation 13 % (15-50); Potassium 4.3 mmol/L (3.3-5.1); Sodium 143 mmol/L (135-145); Total Iron Binding Capacity 371 mcg/dL (228-428); Total Protein 7.8 g/dL (6.5-8.0); Unsaturated Iron Binding 324 ug/dL
[2025-01-22 14:45] LABS: Ferritin 38 ng/mL (10-250)
[2025-01-22 14:47] LABS: Folate 12.7 ng/mL (> or = 4.0); Vitamin B12 513 pg/mL (200-900)
[2025-01-26 02:34] LABS: Methylmalonic Acid 110 nmol/L (55-335)
[2025-01-26 17:38] LABS: Homocysteine 14.3 umol/L (< or = 13.4)
== END 2025-01-22 12:54 | disposition home or self-care (01) ==
LOC: HO.LAB 12:53
PROVIDERS: PCP Internal Medicine; Visit Provider Nurse Practitioner Family
DX: D64.9 Anemia, unspecified (principal); R53.83 Other fatigue
CPT/HCPCS: 36415; 80053; 82607; 82728; 82746; 83090; 83540; 83921; 85025

== ENCOUNTER 2025-01-27 13:40 | Outpatient (AMB) | payer OTHER, SELFPAY ==
--- NOTE | 2025-01-27 14:09 | A.OFFVIS_ITS ---
Vital Signs 01/27/25 14:10 Height 5 ft Weight 194 lb BMI 37.9 BP 160/90 H Blood Pressure Location Rt brachial Position Sitting Pulse 72 Pulse Source Pulse Oximeter Pulse Oximetry (%) 97 Oxygen Delivery Method Room Air Intake Visit Reasons: 6 mo follow up Intake Note: Patient presents follow up for migraines. Migraines appear to be the same. Patient states medication has been working; states she's been experiencing vertigo for 3 weeks now. System Support Analyst Required: No Accompanied by: Self / Same As Patient Allergies hazelnut Allergy (Severe, Verified 01/27/25 14:12) Itching, coughing, and hives Penicillins (PENICILLINS) Allergy (Severe, Verified 01/27/25 14:12) HIVES birch Allergy (Intermediate, Verified 01/27/25 14:12) Itching Iodinated Contrast Media (IV CONTRAST) Allergy (Intermediate, Verified 01/27/25 14:12) HIVES peanut (PEANUTS) Allergy (Intermediate, Verified 01/27/25 14:12) HIVES shellfish derived (SHELLFISH DERIVED) Allergy (Intermediate, Verified 01/27/25 14:12) HIVES almond Allergy (Mild, Verified 01/27/25 14:12) Hives cat dander Allergy (Mild, Verified 01/27/25 14:12) cough/hives dog dander Allergy (Mild, Verified 01/27/25 14:12) cough/hives pollen extracts Allergy (Mild, Verified 01/27/25 14:12) runny nose, itchy eyes Medication List - Last Reconciled 01/27/25 by GIL Guerrero albuterol sulfate 90 mcg/actuation 2 puffs inhalation Q4-6H PRN atorvastatin 20 mg PO DAILY baclofen 20 mg PO BID 30 days bimatoprost 0.01% (Lumigan) 1 drp ophthalmic (eye) BEDTIME bupropion HCl XL mg PO DAILY cetirizine (Zyrtec) 10 mg PO DAILY PRN cholecalciferol (vitamin D3) 50 mcg PO DAILY ciprofloxacin-hydrocortisone 0.2-1 % (Cipro HC) 3 drps otic (ears) BID 7 days clonazepam (Klonopin) 1 mg PO BID cyanocobalamin (vitamin B-12) ER 1,000 mcg PO DAILY cyclosporine 0.05% (Restasis) 1 drp ophthalmic (eye) Q12H docusate sodium 100 mg PO BID PRN dorzolamide-timolol (PF) 2-0.5 % (Cosopt (PF)) drps ophthalmic (eye) BID doxycycline hyclate 100 mg PO DAILY 1 day epinephrine 0.3 mg IM ONCE PRN famotidine 20 mg PO BEDTIME fluticasone propionate 220 mcg/actuation (Flovent HFA) 1 puff inhalation BID PRN fluticasone propionate 50 mcg/actuation 1 spray intranasal DAILY PRN gabapentin 800 mg PO Q8H 30 days magnesium glycinate 300 mg (3 x 100 mg magnesium) PO BEDTIME 30 days mometasone 100 mcg/actuation (Asmanex HFA) 1 puff inhalation BID PRN montelukast (Singulair) 10 mg PO BEDTIME naloxone 4 mg/actuation (Narcan) 4 mg intranasal Q2M PRN naloxone 10 mg (0.4 mL) subcut Q2M omalizumab (Xolair) 150 mg subcut Q3W ondansetron 4 mg PO Q8H PRN pantoprazole 40 mg PO QAM propranolol ER 60 mg PO BEDTIME 30 days riboflavin (vitamin B2) 400 mg PO DAILY 90 days rimegepant (Nurtec ODT) 75 mg PO ONCE PRN 30 days MDD 1 tab [SHOWER CHAIR As directed] sumatriptan succinate 25 - 100 mg orally at onset of headache, may repeat in 2 hrs PRN; max 2 tabs per day or 4 tabs/week (may take with Ibuprofen or Tylenol) 30 days tramadol 50 mg PO TID 90 days valacyclovir 2,000 mg (2 x 1 gram) PO ONCE walker Folding Front wheeled walker zolpidem (Ambien) 10 mg PO BEDTIME PRN 30 days HPI Comments Details: History of Present Illness The patient is a 54-year-old left-handed female presenting with migraine management and evaluation of vertigo and sleep difficulties. The patient reports experiencing migraines approximately three to four times a month, which have been consistent over the past several months. She has been taking magnesium supplements to aid sleep and migraine, but they cause gastrointestinal discomfort, leading her to pause the intake periodically. She has been using Nurtec for acute migraine management, which she finds effective. The patient has been experiencing vertigo for the past three weeks, describing it as a sensation of imbalance, particularly when rolling over in bed. Dramamine, non drowsy, has been used for symptomatic relief, although it provides only partial relief. The vertigo sometimes correlates with her migraines, but Nurtec does not alleviate the dizziness. The patient also reports tinnitus, which has been a long-standing issue. Endorses increased allergy symptoms. Uses Zyrtec consistently. Denies recent URI or sinus infections. Denies ear pain. The patient has a history of elevated blood pressure, noted at 160/90 mmHg during this visit. She reports waking up with right kidney pain, attributed to her history of kidney stones. She denies chest pain or shortness of breath. Review of Systems - Neurological: Reports vertigo for three weeks, tinnitus for several years. Denies recent ear infections or upper respiratory infections. - Cardiovascular: Reports elevated blood pressure. Denies chest pain or shortness of breath. - Genitourinary: Reports right kidney pain due to kidney stones. - Gastrointestinal: Reports gastrointestinal discomfort with magnesium supplements. Results - Labs: Previous high white blood cell count, recent labs improved. 08/20/2024, previous HPI: Pt reports in September she is scheduled to undergo cystoscopy for hydronephrosis, with urethral stricture, nephrolithiasis, in setting of history of pelvic radiation. HST- did not show sleep apnea, w/ O2 matt 85% w/ SpO2 < 88% x's 0.5 min, and SpO2 < 90% x's 27 minutes. Pt declined f/u in-lab PSG, as she has too many medical appointments going on at this time. She does note that she has been experiencing increased cold intolerance. States even when her heat is set to 75, she will have to bundle under blankets because she is shivering. Pt reports her migraines are the same. In the winter, she has 3-4 migraine attacks in the winter, and 5-6 attacks in the summer. She tried the Mag Oxide, however this caused facial redness and GI upset. She resumed taking Mag Chloride 520mg (62 mg of elemental magnesium). She did increased dose of Riboflavin to 400mg qam- tolerating that ok. She did not try the Propranolol ER as she was worried about taking too many medications. She tried Sumatriptan but this caused palpitations and strange feeling. 01/16/24, Initial HPI: Pt reports she has had migraines since she was 19-20 yrs old w/o known preceding causes. She comes to establish care w/ new neurologist since her previous neurologist, Yeison PIERCE retired a few years ago. Though has been seen by [facility] neuro since. PMH and ROS are notable for:? Musculoskeletal disorders or injury: OA, neck/back/joint pain, h/o T10-T11 compression fx, right hip THR. fibromyalgia Cramps: sometimes History of concussion/head injury: was struck in the head by a loose baseball at age 3 months- was hospitalized for several days- but denies residual affects. Mood d/o: Anxiety, Depression, Bilpolar d/o Respiratory d/o: Asthma CV disease: HLD- varies, has lipids checked q 4 months : recurrent kidney stones GI d/o: Constipation or Diarhea- f/b GI [employer]: Cervical cancer at age 27 (in 1997)- was tx'd 1 ovary sparing hysterectomy and radiation tx. Pertinent denials include: History of concussion/head injury, Sleep d/o, Respiratory d/o, Clotting or hematology d/o, Endocrine or metabolic d/o, History of seizure, syncope, or drop attacks Family history of migraine or other headache disorder Lifestyle considerations: Sleep routine: Usual bedtime: 1-2am and wake-up time: 9-10am Sleep difficulties: Endorses: some difficulty falling asleep or maintaining sleep, Fatigue, Leg Cramps Caffeine use: none Substance use: none Exercise:?trying to exercise, is doing home PT exercises Employment:?disabled Headache questionnaire:? Typical headache characteristics: Prodrome symptoms: none Aura: briefly sees wiggly things, feels dizzy, black dots Pain intensity: severe Location, quality, characteristics: May start mid-frontal or left temporal, and alida retro-orbital Associated symptoms: photophobia, phonophobia, osmophobia, allodynia, nausea, vomiting- sometimes when severe, spinning dizziness, lightheadedness, fatigue, cognitive difficulties, activity intoelrence, standing up worsens headcahe and associated s/s. alida jaw tingling- at times. Postdrome: sometimes lingers into the next Triggers: poor fluid intake,hunger, salty foods, sounds, odors- certain perfumes, too much sun or heat, stress Time of day: No specific time of day Duration and Frequency: 5 migraine attacks per month- which last 1-2 days. How does headache impact your life? Makes it difficult to do her daily activities Current acute medication use/interventions: Naratriptan 2.5mg - causes palpitations. Current preventative medication use: Riboflavin 100mg tid Non-pharmacological interventions: Ice and rest, uses distraction techniques. [facility] Medical History (Updated 01/27/25 @ 18:07 by GIL Guerrero) Renal calculi Insomnia Osteoarthritis of multiple joints Hydronephrosis, bilateral Osteopenia Sacroiliac joint pain Encounter for medication monitoring Palpitations Gastritis Fibromyalgia Hx of small bowel obstruction Abdominal pain Obesity (BMI 30-39.9) Bipolar depression Vitamin D deficiency Migraine Allergic rhinitis Mild intermittent asthma without complication Pure hypercholesterolemia Primary osteoarthritis of right hip Surgical History S/P ureteral stent placement History of total hip arthroplasty (~08/15/23) S/P cystourethroscopy with dilation of urethral stricture (~07/21/20) History of esophagogastroduodenoscopy (EGD) Hx of unilateral oophorectomy Hx of colonoscopy Hx of cholecystectomy Hx of cystoscopy History of extraction of renal calculus History of carpal tunnel surgery History of hand surgery History of hysterectomy Family History Father Kidney problem Diabetes Mother Kidney malignancy Diabetes Brother Asthma Diabetes Social History Household Members: Spouse Housing: House Are you a primary home care and home health aides teacher to a significant other at home: No Do you presently have visiting nurse or other home services: Yes Unable to assess alcohol history related to: Unknown Alcohol intake: never Comment: counts correct Patient Tobacco Use Status: Never used Tobacco e-Cigarette/Vaping Use: Never Used Second Hand Smoke Exposure: No Advance Directives Date on File: 08/08/23 service: No Current occupational status: disabled Cognitive needs: No Hearing needs: No Vision needs: Yes Physical Exam Vital Signs: Last Vital Signs Pulse 72 01/27/25 14:10 BP 160/90 H 01/27/25 14:10 Pulse Ox 97 01/27/25 14:10 Oxygen Delivery Method Room Air 01/27/25 14:10 BMI result Body Mass Index 37.9 Const Orientation/consciousness: patient oriented x3 HEENT Head: Yes normocephalic Ears: mastoids normal, no periauricular adenopathy and TM abnormal wth effusion serous bilateral Resp Effort & Inspection: normal respiratory effort and able to speak in complete sentences Neuro General: patient oriented x3 Cranial nerves: Yes CN's II-XII intact bilaterally Cognition (Neuro): normal cognition Gait exam (Neuro): Normal gait present Motor exam (neuro): 5/5 motor strength present throughout Psych Appearance: grossly normal Mental Status: mental status grossly normal Speech and movement: Normal speech and movement present Affect: normal affect Attitude: cooperative Thought process: Normal thought process present Assessment & Plan Assessment & Plan (1) Migraine with aura: Code(s): G43.109 - Migraine with aura, not intractable, without status migrainosus Category: Medical Qualifiers: Status migrainosus presence: without status migrainosus Intractability: not intractable Qualified Code(s): G43.109 - Migraine with aura, not intractable, without status migrainosus (2) Benign paroxysmal vertigo, unspecified ear: Code(s): H81.10 - Benign paroxysmal vertigo, unspecified ear Category: Medical Qualifiers: Laterality: unspecified laterality Qualified Code(s): H81.10 - Benign paroxysmal vertigo, unspecified ear (3) Fatigue: Code(s): R53.83 - Other fatigue Category: Medical Qualifiers: Fatigue type: unspecified Qualified Code(s): R53.83 - Other fatigue (4) Sleep difficulties: Code(s): G47.9 - Sleep disorder, unspecified Category: Medical Plan Discussion Notes We discussed the management of vertigo and the potential use of vestibular therapy to alleviate symptoms. I recommended trying ear drops to address the fluid in the ears and suggested magnesium glycinate as an alternative to the current magnesium supplement to reduce gastrointestinal discomfort. We also talked about the importance of monitoring blood pressure and advised the patient to contact the neurologist if symptoms worsen. Follow-up care was discussed, and I emphasized the need for adequate hydration and to seek medical attention if chest pain or shortness of breath occurs. Patient was informed and verbally consented to the use of an ambient scribe for clinic note documentation during this visit. Plan and Patient Instructions Reviewed HST- no current evidence of sleep apnea, however SpO2 was under 90% for 27 minutes of study time, though under 88% for under 1 minute of study time. Thus, encouraged patient to consider undergoing follow-up in-lab sleep study, which she will consider in follow-up. In the meantime, we will check fasting labs for underlying causes of hypoxemia and cold intolerance, as patient has a history of anemia. For recent recurrence of vertigo: Continue prn non drowsy Dramamine Continue Zyrtec 10 mg daily Trial ciprofloxacin-hydrocortisone 0.2-1 %- 3 drops to both ears b.i.d. x7 days Trial vestibular PT Patient to follow-up if symptoms do not improve or worsen. For overall headache management: * Optimize good self-care, including but not limited to maintaining a healthy diet, adequate fluid intake, adequate sleep, and engaging in regular physical activity. * Track headaches, especially after any treatment regimen changes. [employer] is one of many headache tracking apps. For acute headache treatment: It is important to take acute medications at the first sign of headache. Continue Zofran 4mg prn N/V/migraine. Continue Rimegepant ODT (Nurtec ODT) 75mg, 1 tab at onset of headache.. Max of 1 tabs (75mg) per 24 hours. May adjunct with OTC Tylenol 650mg q 4 hours, Ibuprofen 600mg q 6 hours, or Naproxen 440mg q 12 hrs prn. Previous acute migraine medication trials: Excedrin. Naratriptan- causes palpitations. Sumatriptan-caused palpitations and strange sensations. Acute migraine medication contraindications: None at this time For headache prevention medication: Preventative medications should be taken routinely as prescribed for best effect, it may take several weeks for full effect to take effect. Continue Riboflavin to: Riboflavin 400mg qam Hold Magnesium chloride-causing GI upset Trial magnesium glycinate 100 mg cap- 2-3 caps daily at bedtime. Hold Propranolol Er 60mg qhs and propranolol IR 10 mg p.o. b.i.d. orders- patient hesitant to trial. Previous migraine prevention medication trials: None other. Migraine prevention medication contraindications: Beta-blockers d/t asthma dx. Will follow-up upon review of above and patient to follow-up in clinic in 6 months or sooner prn. Orders: Orders PT Evaluation and Treatment Today H81.10 - Benign paroxysmal vertigo, unspecified ear Medications: New ciprofloxacin-hydrocortisone 0.2-1 % (Cipro HC) 3 drps otic (ears) BID 10 mL 0RF 7 days magnesium glycinate 300 mg (3 x 100 mg magnesium) PO BEDTIME 90 caps 6RF 30 days Discontinued magnesium chloride Discontinued Reason: Doctor's Order 64 mg PO BEDTIME 30 days 30 tabs 6RF magnesium oxide may hold for loose stools Discontinued Reason: Doctor's Order 400 mg PO BEDTIME 30 days 30 tabs 6RF Coding Level of Care Code Est Pt Level 4 (86079) Diagnoses Migraine with aura and without status migrainosus, not intractable G43.109 Status migrainosus presence: without status migrainosus Intractability: not intractable Benign paroxysmal vertigo, unspecified laterality H81.10 Laterality: unspecified laterality Fatigue, unspecified type R53.83 Fatigue type: unspecified Sleep difficulties G47.9
[2025-01-27 14:10] VITALS: BP 160/90; PULSE 72; O2SAT 97; BMI 37.9
--- OUTSIDE RECORDS SUMMARY | 2025-01-27 15:56 | XMS_ITS | Clinical Summary ---
Author Organization [facility] Address [address] [place] [address] Phone Care Team Providers Care Cigar Packer And Picker Name Role Phone Christ Silva MD Primary Care Provider [phone] Allergies No known active allergies Social History [...] Procedure Name Priority Date/Time Associated Diagnosis Comments [facility] SCREENING DIGITAL Routine 12/20/2020 7:17 PM EDT Encounter for screening mammogram for malignant neoplasm of breast from Last 3 Months or Most Recently Relevant to Health Maintenance Results * LEROY SCREENING DIGITAL (12/20/2020 7:17 PM EDT) Anatomical Region Laterality Modality Mammography 12/20/2020 2:13 PM EDT Narrative 12/20/2020 7:17 PM EDT [facility] Diagnostic Imaging Department [address] [place] [id number] Patient: ELISHA MILLS /Age/Sex: 1970 - 50 - F Unit#: [id number] Location/Status: SPDIMAM/REG CLI Mnemonic/Ordering Site: DIGSC/SPMAM Ordering Physician: CHRIST SILVA MD Leroy Screening Digital - 12/20/20 - 1508 History: Bilateral breast cancer screening. Technique: Digital mammography. Conventional CC and MLO projections with tomosynthesis MLO views and computer aided detection Findings: Comparison:[facility] 08/21/2019, dating back to 03/09/2011. Breast tissue is mostly fatty replaced (category a density) bilaterally (as calculated by [employer] software). There are benign calcifications on the right. There is no suspicious group of microcalcification, no suspicious mass, architectural distortion or suspicious asymmetry. Impression: No evidence of malignancy. BIRADS category 2, benign findings, 3342F 41555, [address]9540 Note: Patient information entered into a reminder system with a target due date for the next mammogram; PQRI II 7034F Dictating Physician: MIKEY ROMAN MD Electronically Signed by: MIKEY ROMAN MD Dic Date/Time: 12/20/201916 Sign date/Time: 12/20/201916 Procedure Note Mikey Roman MD - 07/25/2022 [facility] Diagnostic Imaging Department [address] [place] [id number] Patient: GENEELISHA /Age/Sex: 1970 - 50 - F Unit#: [id number] Location/Status: SPDIMA/[facility] CLI Mnemonic/Ordering Site: [facility] Ordering Physician: CHRIST SILVA MD Leroy Screening Digital - 12/20/20 - 1508 History: Bilateral breast cancer screening. Technique: Digital mammography. Conventional CC and MLO projections with tomosynthesis MLO views and computer aided detection Findings: Comparison:[facility] 08/21/2019, dating back to 03/09/2011. Breast tissue is mostly fatty replaced (category a density) bilaterally(as calculated by [employer] software). There are benign calcificationson the right. There is no suspicious group of microcalcification, no suspiciousmass, architectural distortion or suspicious asymmetry. Impression: No evidence of malignancy. BIRADS category 2, benign findings, 3342F 55347, [address]7585 Note: Patient information entered into a reminder system with a targetdue date for the next mammogram; PQRI II 7041F Dictating Physician: MIKEY ROMAN MD Electronically Signed by: MIKEY ROMAN MD Dic Date/Time: 12/20/201916 Sign date/Time: 12/20/201916 Christ Silva MD IMG BI PROCEDURES Final Resu lt from Last 3 Months or Most Recently Relevant to Health Maintenance Insurance [facility] MEDICAID - [place] Care Teams Cigar Packer And Picker Relationship Specialty Start Date End Date Christ Silva MD [address] [place] [address] [place] [address] PCP - General Internal Medicine 07/01/24
== END 2025-01-27 15:08 | disposition home or self-care (01) ==
LOC: HO.HSMS 13:41
PROVIDERS: PCP Internal Medicine; Visit Provider Nurse Practitioner Family
DX: G43.109 Migraine with aura, not intractable, without status migrainosus (principal); H81.10 Benign paroxysmal vertigo, unspecified ear; R53.83 Other fatigue; G47.9 Sleep disorder, unspecified
CPT/HCPCS: 99214

== ENCOUNTER → 2025-01-27 13:40 | Outpatient (BNVA) | payer OTHER, SELFPAY | PROVIDERS: PCP Internal Medicine; Visit Provider Nurse Practitioner Family | DX: G43.109 Migraine with aura, not intractable, without status migrainosus (principal); H81.10 Benign paroxysmal vertigo, unspecified ear; R53.83 Other fatigue; G47.9 Sleep disorder, unspecified | CPT/HCPCS: 99212 ==

== ENCOUNTER 2025-02-27 01:23 | Emergency (ER) | payer OTHER, SELFPAY ==
--- NOTE | ~2025-02-27 | CT_ITS ---
CLINICAL HISTORY: hematuriaurethral pain, R flank CT abdomen and pelvis without contrast Comparison: None provided Findings: The lung bases are clear. Severe bilateral hydronephrosis, [id number]-right. Moderate hydroureter of the proximal to mid ureter is. No obstructing renal calculi are identified. Nonobstructing right renal calculi are present. Gallbladder is surgically absent. No focal hepatic lesion. Pancreas spleen and adrenal glands appear normal. No bowel obstruction, pneumoperitoneum, or pneumatosis. Left inguinal lymph nodes are slightly prominent. Urinary bladder is small and relatively decompressed. Right hip arthroplasty causes metallic artifact degrading images of the pelvis. No acute fracture. Possible 5 mm urethral calcification. IMPRESSION: 1. Possible 5 mm urethral calcification. Please correlate clinically. 2. Severe bilateral hydronephrosis, [id number]-[id number]-right with hydroureter of the proximal to mid ureters bilaterally. Urinary bladder is relatively decompressed. This document has been electronically signed by: Filiberto Cloud MD, PHD on 02/27/2025 03:32:47
[2025-02-27 01:36] VITALS: BP 154/78; PULSE 72; RESP 20; TEMP 36.8; O2SAT 94; BMI 37.7
--- NOTE | 2025-02-27 02:07 | ED_ITS ---
HPI - Female Genitourinary General Chief complaint: Urogenital-Female Stated complaint: vaginal pain Time Seen by Provider: 02/27/25 01:42 History of Present Illness ED Provider: Aly Mobley MD HPI Narrative: 55-year-old female with history of kidney stone, remote cervical cancer status post hysterectomy with severe urethral/vaginal pain she feels like there is a discharge no dysuria some right flank pain. No injury. Denies gross hematuria or vaginal bleeding she has a vaginal pouch. Related Data Home Medications ?Medication ?Instructions ?Recorded ?Confirmed cetirizine 10 mg tablet (Zyrtec) 10 mg PO DAILY PRN al lergies 07/06/20 01/27/25 clonazepam 1 mg tablet (Klonopin) 1 mg PO BID 07/06/20 01/27/25 montelukast 10 mg tablet 10 mg PO BEDTIME 07/06/20 (Singulair) cyclosporine 0.05 % eye drops in a 1 drp ophthalmic (e ye) Q12H 01/06/21 01/27/25 dropperette (Restasis) epinephrine 0.3 mg/0.3 mL 0.3 mg IM ONCE PRN anaphylax is 09/18/22 01/27/25 injection, auto-injector bimatoprost 0.01 % eye drops 1 drp ophthalmic (eye) BE DTIME 03/26/23 01/27/25 (Lumigan) omalizumab 150 mg subcutaneous 150 mg subcut Q3W 05/0201/27/25 solution (Xolair) docusate sodium 100 mg capsule 100 mg PO BID PRN Const ipation 08/27/23 01/27/25 fluticasone propionate 220 1 puff inhalation BID PRN b reathing 08/27/23 01/27/25 mcg/actuation HFA aerosol inhaler (Flovent HFA) mometasone 100 mcg/actuation HFA 1 puff inhalation BID PRN breathing 08/27/23 01/27/25 aerosol inhaler (Asmanex HFA) cholecalciferol (vitamin D3) 50 50 mcg PO DAILY 01/27/25 mcg (2,000 unit) capsule bupropion HCl 300 mg 24 hr tablet, mg PO DAILY 5 01/27/25 extended release dorzolamide-timolol (PF) 2 %-0.5 % drp ophthalmic (eye ) BID 10/07/24 01/27/25 eye drops in a dropperette (Cosopt (PF)) Previous Rx's ?Medication ?Instructions ?Recorded zolpidem 10 mg tablet (Ambien) 10 mg PO BEDTIME PRN In somnia 30 12/28/21 days #30 tabs SHOWER CHAIR #1 ea 01/23/23 walker #1 ea 08/02/23 ondansetron 4 mg disintegrating 4 mg PO Q8H PRN Nausea #20 tabs 01/11/24 tablet sumatriptan succinate 100 mg tablet 25 - 100 mg (0.25 - 1 x 100 mg) PO 01/16/24 .COMPLEX PRN migraine headache 30 days #12 tabs naloxone 10 mg/0.4 mL 10 mg (0.4 mL) subcut Q2M #4 mL 03/03/24 injection,auto-injector propranolol 60 mg capsule,24 60 mg PO BEDTIME 30 days #30 caps 04/14/24 hr,extended release fluticasone propionate 50 1 spray intranasal DAILY PRN 05/26/24 mcg/actuation nasal Congestion #16 grams spray,suspension gabapentin 800 mg tablet 800 mg PO Q8H 30 days #90 ta bs 05/29/24 famotidine 20 mg tablet 20 mg PO BEDTIME for heartbu rn #90 06/12/24 tabs valacyclovir 1 gram tablet 2,000 mg (2 x 1 gram) PO ON CE #2 06/13/24 tabs naloxone 4 mg/actuation nasal 4 mg intranasal Q2M PRN opioid 06/18/24 spray (Narcan) overdose #2 ea pantoprazole 40 mg tablet,delayed 40 mg PO QAM #90 tab s 08/07/24 release cyanocobalamin (vitamin B-12) 1,000 mcg PO DAILY #90 t abs 10/07/24 1,000 mcg tablet,extended release atorvastatin 20 mg tablet 20 mg PO DAILY #90 tabs 10/04 10/28 riboflavin (vitamin B2) 400 mg 400 mg PO DAILY 90 days #90 tabs 11/07/24 tablet albuterol sulfate 90 mcg/actuation 2 puff inhalation Q 4-6H PRN 11/16/24 aerosol inhaler Shortness Of Breath Or Wheez ing #8.5 grams doxycycline hyclate 100 mg tablet 100 mg PO DAILY 1 da y #1 tab 11/21/24 tramadol 50 mg tablet 50 mg PO TID 90 days #270 ta bs 12/17/24 rimegepant 75 mg disintegrating 75 mg PO ONCE PRN migr bre 01/23/25 tablet (Nurtec ODT) headache 30 days #16 tabs ciprofloxacin 0.2 %-hydrocortisone 3 drp otic (ears) B ID 7 days #10 mL 01/27/25 1 % ear drops,suspension (Cipro HC) magnesium glycinate 300 mg (3 x 100 mg magnesium ) PO 01/27/25 BEDTIME 30 days #90 caps baclofen 20 mg tablet 20 mg PO BID 30 days #60 tab s 02/20/25 tamsulosin 0.4 mg capsule (Flomax) 0.4 mg PO DAILY #7 caps 02/27/25 Allergies Allergy/AdvReac Type Severity Reaction Status Date / Time hazelnut Allergy Severe Itching, Verified 02/27/25 01:38 coughing, and hives Penicillins (PENICILLINS) Allergy Severe HIVES Verified 02/27/25 01:38 birch Allergy Intermediate Itching Verified 02/27/25 01:38 Iodinated Contrast Media (IV Allergy Intermediate HIVES Verified 02/27/25 01:38 CONTRAST) peanut (PEANUTS) Allergy Intermediate HIVES Verified 02/27/25 01:38 shellfish derived (SHELLFISH Allergy Intermediate HIVES Verified 02/27/25 01:38 DERIVED) almond Allergy Mild Hives Verified 02/27/25 01:38 cat dander Allergy Mild cough/hives Verified 02/27/25 01:38 dog dander Allergy Mild cough/hives Verified 02/27/25 01:38 pollen extracts Allergy Mild runny Verified 02/27/25 01:38 nose, itchy eyes PMFSH Past Medical History Medical History (Updated 02/28/25 @ 00:01 by Iman Morrissey) Renal calculi Insomnia Osteoarthritis of multiple joints Hydronephrosis, bilateral Osteopenia Sacroiliac joint pain Encounter for medication monitoring Palpitations Gastritis Fibromyalgia Hx of small bowel obstruction Abdominal pain Obesity (BMI 30-39.9) Bipolar depression Vitamin D deficiency Migraine Allergic rhinitis Mild intermittent asthma without complication Pure hypercholesterolemia Primary osteoarthritis of right hip Surgical History S/P ureteral stent placement History of total hip arthroplasty (~08/15/23) S/P cystourethroscopy with dilation of urethral stricture (~07/21/20) History of esophagogastroduodenoscopy (EGD) Hx of unilateral oophorectomy Hx of colonoscopy Hx of cholecystectomy Hx of cystoscopy History of extraction of renal calculus History of carpal tunnel surgery History of hand surgery History of hysterectomy Family History Family History Father Kidney problem Diabetes Mother Kidney malignancy Diabetes Brother Asthma Diabetes Social History Social History Household Members: Spouse Housing: House Are you a primary long term care administrator to a significant other at home: No Do you presently have visiting nurse or other home services: Yes Unable to assess alcohol history related to: Unknown Alcohol intake: never Comment: counts correct Patient Tobacco Use Status: Never used Tobacco e-Cigarette/Vaping Use: Never Used Second Hand Smoke Exposure: No Advance Directives Date on File: 08/08/23 service: No Current occupational status: disabled Cognitive needs: No Hearing needs: No Vision needs: Yes Physical Exam 2 Exam: Exam: EXAM: Gen: Alert, awake, well appearing, appears uncomfortable in pain Head: Atraumatic Eyes: Anicteric, Normal conjunctiva. ENT: Moist mucosa, no pallor. ? Neck: Supple. Skin: ?No observable rash or bruising on exposed or examined skin Respiratory: Breathing comfortably, No distress.Clear to auscultation bilaterally, symmetric chest expansion, No wheeze, rales, ronchi. Cardiovascular: Regular rate and rhythm. No murmurs or rub. Well perfused periphery, warm extremities. No edema. ? Abdominal: No focal tenderness. Soft, no objective distension. No palpable masses or obvious organomegaly. ?No guarding, no rebound tenderness or other peritoneal findings. : No flank tenderness. Chaperoned exam by nurse aide with speculum and digital exam. There is no thick discharge or vaginal mucosal appearance consistent with Marce. No bleeding. Urethra next total genital structures grossly normal Neuro: Alert. Gross movement of all extremities intact. ? Psych: Calm. Cooperative. MSK: No grossly visible deformity. Vital signs: See flowsheet Vital Signs: Vital Signs: Last Vital Signs Temp 97.9 F 02/27/25 06:16 Pulse 61 02/27/25 06:16 Resp 16 02/27/25 06:16 BP 150/76 H 02/27/25 06:16 Pulse Ox 98 02/27/25 06:16 O2 Del Method Room Air 02/27/25 06:16 BMI result Body Mass Index 37.7 Medications Administered Discontinued Medications Generic Name Dose Route Start Last Admin Trade Name Juliana PRN Reason Stop Dose Admin Fluconazole 150 mg 02/27/25 02:05 02/27/25 02:54 Fluconazole 150 Mg Tablet PO 02/27/25 02:06 150 mg ONCE ONE Administration Ketorolac Tromethamine 30 mg 02/27/25 02:34 02/27/25 02:54 Ketorolac Tromethamine 30 Mg/Ml Vial IM 02/27/25 02:35 30 mg ONCE ONE Administration Metronidazole 1 gm 02/27/25 02:05 02/27/25 02:31 Metronidazole 0.75 % Vaginal Gel 70 Gm Tube VAGINAL 02/27/25 02:06 Not Given ONCE ONE Oxycodone HCl 5 mg 02/27/25 02:34 02/27/25 02:54 Oxycodone Hcl Immed Release 5 Mg Tablet PO 02/27/25 02:35 5 mg ONCE ONE Administration Tamsulosin HCl 0.4 mg 02/27/25 03:39 02/27/25 03:53 Tamsulosin Hcl 0.4 Mg Capsule PO 02/27/25 03:40 0.4 mg ONCE ONE Administration Medical Decision Making Medical Decision Making MDM Narrative: Medical Decision Making: Urethral pain CT shows chronic L hydro, new R hydro. Reassessment @ 548A pt pain resolved. Eager to go home. Will call her Uro sunday morning and PCP. Needs repeat US Renal and chemistry THIS WEEK , she knows and understands this Preliminary Favored Differential Diagnosis: Ureteral colic, urethral stone, UTI, vaginitis/vaginosis among additional considered etiologies Testing Interpreted Independently: Not Applicable Radiology or Lab testing Results Reviewed: Not Applicable Consults: Not Applicable Independent Historians/External Chart Reviews: Not Applicable Social Determinants of Health Impacting MDM/Planning: Not Applicable Lab Data 02/27/25 04:39 02/27/25 04:39 Labs: Lab Results 07/25/25 07/25/25 Range/Units 02:34 04:39 WBC 9.0 (4.8-10.8) X10*3/uL RBC 3.79 L (4.20-5.50) X10*6/uL Hgb 10.4 L (12.0-16.0) g/dl Hct 33.2 L (37.0-47.0) % MCV 87.6 (80.0-98.0) fL MCH 27.4 (27.0-33.0) pg MCHC 31.3 (31.0-35.0) g/dl RDW 14.7 (11.0-16.0) % Plt Count 312 (160-400) X10*3/uL MPV 10.0 (9.4-12.3) fL Immature Gran % (Auto) 0.2 (0.0-0.4) % Neut % (Auto) 72.6 (45-73) % Lymph % (Auto) 17.4 L (20-40) % Fisher % (Auto) 5.8 (2-11) % Eos % (Auto) 3.7 (0-4) % Baso % (Auto) 0.3 (0-2) % Lymph # (Auto) 1.6 (1.2-4.9) X10*3/uL Fisher # (Auto) 0.5 (0.1-1.2) X10*3/uL Eos # (Auto) 0.3 (0.0-0.4) X10*3/uL Baso # (Auto) 0.0 (0.0-0.2) X10*3/uL Abs Immat Gran (auto) 0.02 (0.00-0.03) X10*3/uL Absolute Neuts (auto) 6.5 (2.0-8.3) x10*3/uL Absolute Nucleated RBC 0.000 (0.0-0.012) X10*3/uL Nucleated RBC % (auto) 0.0 (0.0-0.2) /100WBC Sodium 142 (135-145) mmol/L Potassium 3.8 (3.3-5.1) mmol/L Chloride 110 H (96-108) mmol/L Carbon Dioxide 24 (22-29) mmol/L Anion Gap 12 (12-20) BUN 14 (9-16) mg/dL Creatinine 0.79 (0.5-1.4) mg/dL Estim Creat Clear Calc 80.1 Estimated GFR > 60 Random Glucose 104 (60-115) mg/dL Calcium 9.0 D (8.4-10.2) mg/dL Urine Color [place] Urine Appearance Clear Urine pH 6.0 (5.0-9.0) Ur Specific [place] 1.020 (1.005-1.025) Urine Protein See Note (Neg-Trace) mg/dL Urine Glucose (UA) 100 H (Negative) mg/dL Urine Ketones Negative (Negative) mg/dL Urine Blood Small (1+) H (Negative) Urine Nitrite See Note (Negative) Ur Leukocyte Esterase Trace H (Negative) Urine RBC 3-5 H (0-2) /HPF Urine WBC 0-5 (0-5) /HPF Ur Squamous Epith Cells 3-5 (0-2) /HPF Calcium Oxalate Crystal Present Urine Bacteria None Seen (None Seen) Hyaline Casts 0-2 (0-2) /LPF T. vaginalis (PCR) NOT DETECTED (Not Detect) Bact vaginosis (PCR) NEGATIVE (Negative) C. krusei/glabrata (PCR) NOT DETECTED (Not Detect) Marce group (PCR) NOT DETECTED (Not Detect) Discharge Plan Discharge Clinical Impression: Vaginal pain Patient Disposition: Home, Self-Care Instructions: Pelvic Pain (ED) Additional Instructions: _ DISCHARGE DIAGNOSES: Vaginal pain Chronic hydronephrosis LEFT New Hydronerphrosis RIGHT, possibly passed urethral stone HISTORY OF PRESENTATION: ?Urethral pain EMERGENCY DEPARTMENT COURSE,TESTS, TREATMENTS: While in the ED today Blood work and urinalysis was reassuring. CT showed CHRONIC LEFT BLOCKAGE AND NEW RIGHT KIDNEY BLOCKAGE. DISCHARGE MEDICATIONS: ?[We have made no changes to your regular medication regimen BUT ADDED FLOMAX FOLLOW-UP: ?Call your primary or general physician soon as possible to discuss your symptoms, your ED visit and to discuss follow up plans YOU MUST: CALL YOUR UROLOGIST SUNDAY MORNING TO DISCUSS THE FINDINGS ABOVE AND YOUR SYMPTOMS CALL YOUR PCP TO SCHEDULE A KIDNEY ULTRASOUND AND REPEAT CHEMISTRY BLOOD TESTING THIS WEEK INSTRUCTIONS ?& RETURN PRECAUTIONS: If any symptoms change first call your primary physician, if it is after-hours your primary doctors office should have a provider organizational development manager you can speak with. If the symptoms are severe or very concerning to you then call 911 or return to the ED. Aly Mobley MD Emergency Physician [facility] Prescriptions: New tamsulosin [Flomax] 0.4 mg capsule 0.4 mg PO DAILY Qty: 7 0RF No Action zolpidem [Ambien] 10 mg tablet 10 mg PO BEDTIME PRN (Reason: Insomnia) 30 Days Qty: 30 0RF (DME) [facility] See Rx Instructions .MEDSUPPLY Qty: 1 0RF Rx Instructions: Folding Front wheeled walker naloxone 10 mg/0.4 mL auto-injector 10 mg subcut Q2M Qty: 4 0RF Rx Instructions: until desired response propranolol 60 mg capsule,extended release 24 hr 60 mg PO BEDTIME 30 Days Qty: 30 3RF fluticasone propionate 50 mcg/actuation spray,suspension 1 spray intranasal DAILY PRN (Reason: Congestion) Qty: 16 1RF gabapentin 800 mg tablet 800 mg PO Q8H 30 Days Qty: 90 8RF famotidine 20 mg tablet 20 mg PO BEDTIME Qty: 90 2RF pantoprazole 40 mg tablet,delayed release (DR/EC) 40 mg PO QAM Qty: 90 2RF atorvastatin 20 mg tablet 20 mg PO DAILY Qty: 90 1RF riboflavin (vitamin B2) 400 mg tablet 400 mg PO DAILY 90 Days Qty: 90 3RF albuterol sulfate 90 mcg/actuation HFA aerosol inhaler 2 puff inhalation Q4-6H PRN (Reason: Shortness Of Breath Or Wheezing) Qty: 8.5 3RF doxycycline hyclate 100 mg tablet 100 mg PO DAILY 1 Days Qty: 1 6RF Rx Instructions: dental prophylaxis-take 1 tab 1hr prior to dental exam Nurtec ODT 75 mg tablet,disintegrating 75 mg PO ONCE MDD 1 tab PRN (Reason: migraine headache) 30 Days Qty: 16 6RF Rx Instructions: [place] APPROVED 01/21/25-01/21/26 baclofen 20 mg tablet 20 mg PO BID 30 Days Qty: 60 8RF docusate sodium 100 mg capsule 100 mg PO BID PRN (Reason: Constipation) Asmanex HFA 100 mcg/actuation HFA aerosol inhaler 1 puff inhalation BID PRN (Reason: breathing) fluticasone propionate [Flovent HFA] 220 mcg/actuation HFA aerosol inhaler 1 puff inhalation BID PRN (Reason: breathing) (DME) SHOWER CHAIR See Rx Instructions .Route .MEDSUPPLY Qty: 1 0RF Rx Instructions: As directed clonazepam [Klonopin] 1 mg tablet 1 mg PO BID montelukast [Singulair] 10 mg tablet 10 mg PO BEDTIME cetirizine [Zyrtec] 10 mg tablet 10 mg PO DAILY PRN (Reason: allergies) Restasis 0.05 % dropperette 1 drp ophthalmic (eye) Q12H Xolair 150 mg recon soln 150 mg subcut Q3W epinephrine 0.3 mg/0.3 mL auto-injector 0.3 mg IM ONCE PRN (Reason: anaphylaxis) Lumigan 0.01 % drops 1 drp ophthalmic (eye) BEDTIME ondansetron 4 mg tablet,disintegrating 4 mg PO Q8H PRN (Reason: Nausea) Qty: 20 0RF sumatriptan succinate 100 mg tablet 25 - 100 mg PO .COMPLEX PRN (Reason: migraine headache) 30 Days Qty: 12 6RF Rx Instructions: 25 - 100 mg orally at onset of headache, may repeat in 2 hrs PRN; max 2 tabs per day or 4 tabs/week (may take with Ibuprofen or Tylenol) cholecalciferol (vitamin D3) 50 mcg (2,000 unit) capsule 50 mcg PO DAILY naloxone [Narcan] 4 mg/actuation spray,non-aerosol 4 mg intranasal Q2M PRN (Reason: opioid overdose) Qty: 2 2RF Rx Instructions: spray 1 dose into ONE nostril; alternate nostrils w each dose until help arrives valacyclovir 1 gram tablet 2,000 mg PO ONCE Qty: 2 0RF tramadol 50 mg tablet 50 mg PO TID 90 Days Qty: 270 1RF bupropion HCl 300 mg tablet extended release 24 hr PO DAILY dorzolamide-timolol (PF) [Cosopt (PF)] 2-0.5 % dropperette ophthalmic (eye) BID cyanocobalamin (vitamin B-12) 1,000 mcg tablet extended release 1,000 mcg PO DAILY Qty: 90 3RF magnesium glycinate 100 mg magnesium capsule 300 mg PO BEDTIME 30 Days Qty: 90 6RF Cipro HC 0.2-1 % drops,suspension 3 drp otic (ears) BID 7 Days Qty: 10 0RF Interventions: ED Discharge Assessment Last Done: 02/27/25 06:16 Discharge Date/Time: 02/27/25 06:17 Print Language: Yi
[2025-02-27 02:42] LABS: Appearance Urine Clear; Glucose Urine UA 100 mg/dL (Negative); PH 6.0 (5.0-9.0); Specific Gravity - Urine 1.020 (1.005-1.025); UMIC TRIGGER UACC YES
[2025-02-27] MEDS: oxyCODONE HCl Immed Release 5 MG TABLET PO (02:54)
[2025-02-27 04:44] LABS: Hematocrit 33.2 % (37.0-47.0); Hemoglobin 10.4 g/dl (12.0-16.0); Imm Gran Abs Auto 0.02 X10*3/uL (0.00-0.03); Imm Gran Pct Auto 0.2 % (0.0-0.4); Lymphocytes Absolute Auto 1.6 X10*3/uL (1.2-4.9); MANUAL DIFF FLAG NO; Mean Corpuscular HGB Conc 31.3 g/dl (31.0-35.0); Mean Corpuscular Hemoglobin 27.4 pg (27.0-33.0); Mean Corpuscular Volume 87.6 fL (80.0-98.0); NRBC Abs Auto 0.000 X10*3/uL (0.0-0.012); NRBC Pct Auto 0.0 /100WBC (0.0-0.2); Platelet Count 312 X10*3/uL (160-400); Red Blood Count 3.79 X10*6/uL (4.20-5.50); White Blood Count 9.0 X10*3/uL (4.8-10.8)
[2025-02-27 04:55] LABS: Anion Gap 12 (12-20); Blood Urea Nitrogen 14 mg/dL (9-16); Calcium 9.0 mg/dL (8.4-10.2); Carbon Dioxide 24 mmol/L (22-29); Chloride 110 mmol/L (96-108); Creatinine Clr Calc Pharmacy 80.1; Estimated Glomerular Filt Rate > 60; Potassium 3.8 mmol/L (3.3-5.1); Sodium 142 mmol/L (135-145)
[2025-02-27 04:56] VITALS: BP 149/71; PULSE 69; RESP 16; TEMP 36.4; O2SAT 98
[2025-02-27 06:16] VITALS: BP 150/76; PULSE 61; RESP 16; TEMP 36.6; O2SAT 98
[2025-02-27 10:52] LABS: Bacterial Vaginosis PCR NEGATIVE (Negative); Candida Group PCR NOT DETECTED (Not Detect); Candida glab krusei PCR NOT DETECTED (Not Detect); Trichomonas vaginalis PCR NOT DETECTED (Not Detect)
== END 2025-02-27 06:17 | disposition home or self-care (01) ==
PROVIDERS: Emergency Provider Emergency Medicine; PCP Internal Medicine
DX: R10.2 Pelvic and perineal pain (principal); Z79.899 Other long term (current) drug therapy
CPT/HCPCS: 36415; 74176; 80048; 81001; 81515; 85025; 96372; 99284; J1885

== ENCOUNTER → 2025-02-27 02:34 | Outpatient (BNV) | payer OTHER, SELFPAY | PROVIDERS: Emergency Provider Emergency Medicine; PCP Internal Medicine; Visit Provider General Practice | DX: N13.4 Hydroureter (principal) | CPT/HCPCS: 74176 ==

== ENCOUNTER 2025-03-06 11:17 | Outpatient (REF) | payer OTHER, SELFPAY ==
--- OUTSIDE RECORDS SUMMARY | 2025-03-06 11:23 | XMS_ITS | Clinical Summary ---
Author Organization [facility] Address [address] [place] [address] Care Team Providers Care Lime Kiln Worker Helper Name Role Phone Teresa Vega PA-C Primary Care Provider [phone] Source Comments PLEASE NOTE, if this patient [...] mcg/actuation nasal sprayIndication s:Seasonal allergies Place 1 [place] into the nostril(s) once daily. 16 g [...] 10/21/2014 Nephrolithiasis 08/19/2014 Overview (02/15/2015): Follows at [facility] Urolog Lt ureteroscopy with manipulation of lt renal stone and stent placed at [facility] January 27 2015 S/P unilateral salpingo-oophorectomy. LEFT 05/05 Overview (05/22/2014): Done at [facility] on 05/05/14 History of normal mammogram 04/16/2014 History of cervical cancer 01/26/2014 Overview (01/26/2014): Seen by manager target/onc at [facility] Sp Hysterectomy, had +nodes, received chemo and radiation On Estrogen She has persistent ovarian cyst and will undergo resection around April: explorat laparotomy, biopsy, etc Migraine headache 01/26/2014 Overview (01/26/2014): Has seen [facility] Neuro Prescribed IC NAratriptan HCL 2.5mg HLD [...] usual. Asthma exacerbation (HHS-HCC) Bipolar 1 disorder (CMS & HHS-HCC) Overview (01/26/2014): Follows with Psych: Benitez Nick MD at [address] [place] [address] On: Celexa, Ambien and Klonopin Resolved Problems [...] 72 03/16/2016 2:34 PM EDT Temperature 36.7 C (98 F) 03/16/2016 2:34 PM EDT Respiratory Rate 16 03/16/2016 2:34 PM EDT Oxygen Saturation - - Inhaled Oxygen Concentration - - Weight 97.7 kg (215 lb 4.8 oz) 03/16/2016 2:34 P M EDT Height 149.9 cm (4' 11 ) 03/16/2016 2:34 PM EDT Body Mass Index 43.49 03/16/2016 2:34 PM EDT Plan of Treatment Not on file Insurance [place] Care Teams Lime Kiln Worker Helper Relationship Specialty Start Date End Date Teresa Vega PA-C [address] [place] [address] PCP - General 10/01/18
--- OUTSIDE RECORDS SUMMARY | 2025-03-06 11:23 | XMS_ITS | Encounter Summary ---
Author Organization [facility] Address [address] [place] [address] Care Team Providers Care Shoe Puller Name Role Phone Christ Goodwin MD Primary Care Provider Encounter Details Date Type Department Care Team (Late st Contact Info) Description 01/30/2025 Lab Requisition [facility] - Main Lab [address] [place] [address] Ajay Leonard PA [address] [place] [address] Urinary tract infection, site not specified Social History Tobacco Use Types Packs/Day Years Used Date Smoking Tobacco: Never Assessed Comments Unknown Sex and Gender Information Value Date Recorded Sex Assigned at Not on file Legal Sex Female 11:45 PM EST Gender Identity Not on file Sexual Orientation Not on file documented as of this encounter Plan of Treatment Not on file documented as of this encounter Procedures Procedure Name Priority Date/Time Associated Diagnosis Comments CULTURE URINE Routine 01/30/2025 12:00 AM EDT Urinary tract infection, site not specified documented in this encounter Results * Culture urine (01/30/2025 12:00 AM EDT) Culture, Urine No growth 01/31/2025 12:44 PM EDT [facility] Urine Urine specimen obtained by clean catch procedure / Unknown 01/30/2025 01/30/2025 5:39 PM EDT us [facility] MICROBIOLOGY - GENERAL ORD ERABLES Final Result [facility] [address] [place] [address], documented in this encounter Visit Diagnoses Diagnosis Urinary tract infection, site not specified documented in this encounter Care Teams Shoe Puller Relationship Specialty Start Date End Date Christ Goodwin MD [address] [place] [address] Dr [address] [place] PCP - General Internal Medicine 07/01/24 documented as of this encounter
[2025-03-06 11:33] LABS: MANUAL DIFF FLAG NO
[2025-03-06 12:21] LABS: Hematocrit 37.8 % (37.0-47.0); Hemoglobin 11.5 g/dl (12.0-16.0); Imm Gran Abs Auto 0.03 X10*3/uL (0.00-0.03); Imm Gran Pct Auto 0.4 % (0.0-0.4); Lymphocytes Absolute Auto 1.2 X10*3/uL (1.2-4.9); Mean Corpuscular HGB Conc 30.4 g/dl (31.0-35.0); Mean Corpuscular Hemoglobin 26.8 pg (27.0-33.0); Mean Corpuscular Volume 88.1 fL (80.0-98.0); NRBC Abs Auto 0.000 X10*3/uL (0.0-0.012); NRBC Pct Auto 0.0 /100WBC (0.0-0.2); Platelet Count 389 X10*3/uL (160-400); Red Blood Count 4.29 X10*6/uL (4.20-5.50); White Blood Count 8.0 X10*3/uL (4.8-10.8)
[2025-03-06 13:21] LABS: Alanine Aminotransferase 20 U/L (0-31); Albumin Level 4.4 g/dL (3.5-5.0); Alkaline Phosphatase 80 U/L (39-117); Anion Gap 13 (12-20); Aspartate Amino Transferase 18 U/L (5-31); Blood Urea Nitrogen 14 mg/dL (9-16); Calcium 9.2 mg/dL (8.4-10.2); Carbon Dioxide 24 mmol/L (22-29); Chloride 110 mmol/L (96-108); Cholesterol 181 mg/dL (<200); Estimated Glomerular Filt Rate > 60; HDL Cholesterol 57 mg/dL (>40); Potassium 4.2 mmol/L (3.3-5.1); Sodium 143 mmol/L (135-145); Total Protein 7.4 g/dL (6.5-8.0); Triglycerides 120 mg/dL (<150)
== END 2025-03-06 11:18 | disposition home or self-care (01) ==
LOC: HO.LAB 11:17
PROVIDERS: PCP Internal Medicine; Visit Provider Internal Medicine
DX: E55.9 Vitamin D deficiency, unspecified (principal); E78.00 Pure hypercholesterolemia, unspecified; D64.9 Anemia, unspecified
CPT/HCPCS: 36415; 80053; 80061; 82306; 84443; 85025

== ENCOUNTER 2025-03-09 13:51 | Outpatient (AMB) | payer OTHER, SELFPAY ==
[2025-03-09 13:59] VITALS: BP 134/92; PULSE 74; O2SAT 97; BMI 37.5
--- NOTE | 2025-03-09 13:59 | MHC.PC.OV ---
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: No Accompanied by: Self / Same As Patient Allergies hazelnut Allergy (Severe, Verified 03/09/25 14:42) Itching, coughing, and hives Penicillins (PENICILLINS) Allergy (Severe, Verified 03/09/25 14:42) HIVES birch Allergy (Intermediate, Verified 03/09/25 14:42) Itching Iodinated Contrast Media (IV CONTRAST) Allergy (Intermediate, Verified 03/09/25 14:42) HIVES peanut (PEANUTS) Allergy (Intermediate, Verified 03/09/25 14:42) HIVES shellfish derived (SHELLFISH DERIVED) Allergy (Intermediate, Verified 03/09/25 14:42) HIVES almond Allergy (Mild, Verified 03/09/25 14:42) Hives cat dander Allergy (Mild, Verified 03/09/25 14:42) cough/hives dog dander Allergy (Mild, Verified 03/09/25 14:42) cough/hives pollen extracts Allergy (Mild, Verified 03/09/25 14:42) runny nose, itchy eyes Medication List - Last Reconciled 03/09/25 by Christ Goodwin MD albuterol sulfate 90 mcg/actuation 2 puffs inhalation Q4-6H PRN atorvastatin 20 mg PO DAILY baclofen 20 mg PO BID 30 days bimatoprost 0.01% (Lumigan) 1 drp ophthalmic (eye) BEDTIME bupropion HCl XL mg PO DAILY cetirizine (Zyrtec) 10 mg PO DAILY PRN cholecalciferol (vitamin D3) 50 mcg PO DAILY ciprofloxacin-hydrocortisone 0.2-1 % (Cipro HC) 3 drps otic (ears) BID 7 days clonazepam (Klonopin) 1 mg PO BID cyanocobalamin (vitamin B-12) ER 1,000 mcg PO DAILY cyclosporine 0.05% (Restasis) 1 drp ophthalmic (eye) Q12H docusate sodium 100 mg PO BID PRN dorzolamide-timolol (PF) 2-0.5 % (Cosopt (PF)) drps ophthalmic (eye) BID doxycycline hyclate 100 mg PO DAILY 1 day epinephrine 0.3 mg IM ONCE PRN famotidine 20 mg PO BEDTIME fluticasone propionate 220 mcg/actuation (Flovent HFA) 1 puff inhalation BID PRN fluticasone propionate 50 mcg/actuation 1 spray intranasal DAILY PRN gabapentin 800 mg PO Q8H 30 days magnesium glycinate 300 mg (3 x 100 mg magnesium) PO BEDTIME 30 days mometasone 100 mcg/actuation (Asmanex HFA) 1 puff inhalation BID PRN montelukast (Singulair) 10 mg PO BEDTIME naloxone 4 mg/actuation (Narcan) 4 mg intranasal Q2M PRN naloxone 10 mg (0.4 mL) subcut Q2M omalizumab (Xolair) 150 mg subcut Q3W ondansetron 4 mg PO Q8H PRN pantoprazole 40 mg PO QAM propranolol ER 60 mg PO BEDTIME 30 days riboflavin (vitamin B2) 400 mg PO DAILY 90 days rimegepant (Nurtec ODT) 75 mg PO ONCE PRN 30 days MDD 1 tab [SHOWER CHAIR As directed] sumatriptan succinate 25 - 100 mg orally at onset of headache, may repeat in 2 hrs PRN; max 2 tabs per day or 4 tabs/week (may take with Ibuprofen or Tylenol) 30 days tamsulosin (Flomax) 0.4 mg PO DAILY tramadol 50 mg PO TID 90 days valacyclovir 2,000 mg (2 x 1 gram) PO ONCE walker Folding Front wheeled walker zolpidem (Ambien) 10 mg PO BEDTIME PRN 30 days Tobacco use date assessed: 03/09/25 Dental Screening Dental Screen Date: 03/09/25 Did you have a dental visit in the last 12 months?: Yes Did you have a dental problem in the last 6 months where you did not have access to dental care?: No Was dental information given to patient?: Patient has dentist HPI 4 Month F/U HPI Details Patient comes in today for her follow-up visit States that she feels okay She denies any headaches or dizziness Denies any chest pains, no increased shortness of breath No nausea/vomiting, no abdominal pain No change in bowel habits noted She had her follow-up labs done a few days ago - to discuss her results [facility] Medical History Renal calculi Insomnia Osteoarthritis of multiple joints Hydronephrosis, bilateral Osteopenia Sacroiliac joint pain Encounter for medication monitoring Palpitations Gastritis Fibromyalgia Hx of small bowel obstruction Abdominal pain Obesity (BMI 30-39.9) Bipolar depression Vitamin D deficiency Migraine Allergic rhinitis Mild intermittent asthma without complication Pure hypercholesterolemia Primary osteoarthritis of right hip Surgical History S/P ureteral stent placement History of total hip arthroplasty (~08/15/23) S/P cystourethroscopy with dilation of urethral stricture (~07/21/20) History of esophagogastroduodenoscopy (EGD) Hx of unilateral oophorectomy Hx of colonoscopy Hx of cholecystectomy Hx of cystoscopy History of extraction of renal calculus History of carpal tunnel surgery History of hand surgery History of hysterectomy Family History Father Kidney problem Diabetes Mother Kidney malignancy Diabetes Brother Asthma Diabetes Social History Household Members: Spouse Housing: House Are you a primary customer care professional to a significant other at home: No Do you presently have visiting nurse or other home services: Yes Unable to assess alcohol history related to: Unknown Alcohol intake: never Comment: counts correct Patient Tobacco Use Status: Never used Tobacco e-Cigarette/Vaping Use: Never Used Second Hand Smoke Exposure: No Advance Directives Date on File: 08/08/23 service: No Current occupational status: disabled Cognitive needs: No Hearing needs: No Vision needs: Yes Questionnaire PHQ-9 Over the last 2 weeks, how often have you been bothered by any of the following problems? 1. Little interest or pleasure in doing things: several days 2. Feeling down, depressed, or hopeless: several days 3. Trouble falling or staying asleep, or sleeping too much: nearly every day 4. Feeling tired or having little energy: nearly every day 5. Poor appetite or overeating: more than half the days 6. Feeling bad about yourself - or that you are a failure or have let yourself or your family down: more than half the days 7. Trouble concentrating on things, such as reading the newspaper or watching television: more than half the days 8. Moving or speaking so slowly that other people could have noticed. Or the opposite - being so fidgety or restless that you have been moving around a lot more than usual: more than half the days 9. Thoughts that you would be better off or of hurting yourself in some way: nearly every day Total score: 19 Depression Screening Interpretation: Positive Depression Screening Follow-up: Existing condition and In treatment Depression Screening Done: Yes 59789 - PHQ-9 Billing: Yes Source: Developed by Drs. Khalif Rodriguez, Columba Bangura, Shyam Timmons and colleagues, with an educational jalil from [employer]. Thrive Questionnaire Date Thrive assessed: 03/09/25 I am a: Patient What is your living situation today?: I have a steady place to live Within the past 12 months, did the food you bought not last and you didn't have the money to get more?: Never true Within the past 12 months, did you worry whether your food would run out before you got money to buy more?: Never true Do you have trouble paying for medicines?: No Do you have trouble getting transportation to medical appointments?: No Do you have trouble paying your heating and electricity bill?: No Do you have trouble taking care of your child, family member or friend?: I choose not to answer this question Do you have trouble with day-to-day activities such as bathing, preparing meals, shopping, managing finances, etc.?: Yes Are you currently unemployed and looking for a job?: I choose not to answer this question Are you interested in more education?: I choose not to answer this question Please select the resources that you would like help with: None Currently or been in a relationship where the following occur: No concerns reported THRIVE Score: 0 AUDIT C Alcohol Use Questionnaire (AUDIT-C) 1. How often do you have a drink containing alcohol?: Never 3. How often do you have six or more drinks on one occasion?: Never Total Score: 0 Score Reviewed/Action Taken: Yes ALEKS-7 AMB Questionnaire ALEKS-7 Date ALEKS - 7 assessed: 03/09/25 Feeling nervous, anxious, or on edge: 3 = Nearly every day Not being able to stop or control worryin = Nearly every day Worrying too much about different things: 3 = Nearly every day Trouble relaxin = Nearly every day Being so restless that it is hard to sit still: 3 = Nearly every day Becoming easily annoyed or irritable: 3 = Nearly every day Feeling afraid as if something awful might happen: 3 = Nearly every day Total ALEKS-7 score (0-4 normal; 5-9 mild; 10-14 moderate; 15-21 severe): 21 Source: Developed by Drs. Khalif Rodriguez, Columba Bangura, Shyam Timmons and colleagues, with an educational jalil from [employer]. Review of Systems Const Denies chills, Reports fatigue, Denies fever(s) and Denies headache(s) ENT Denies dysphagia, Denies dizziness, Denies otalgia, Denies headache(s), Reports neck pain (chronic), Denies odynophagia and Denies sore throat Card Denies chest pain, Reports palpitations (occasionally) and Denies dyspnea Resp Denies chest congestion, Denies cough, Denies dyspnea and Denies wheezing GI Denies abdominal pain, Denies constipation, Denies dysphagia, Denies heartburn, Denies diarrhea, Denies nausea, Denies odynophagia and Denies vomiting Denies difficulty voiding, Denies nocturia, Denies dysuria and Denies urinary urgency Musc Reports back pain (chronic), Reports myalgias (diffuse), Reports arthralgias (involving multiple joints ), Reports neck pain (chronic) and Reports stiffness Skin/Breast Denies rash Neuro Denies dizziness and Denies headache(s) Psych Denies anxiety Endo Reports fatigue and Reports palpitations (occasionally) Loy/Lymph Denies easy bruising Aller/Immun Denies wheezing Physical exam (Primary Care) Vital Signs: Last Vital Signs Pulse 74 03/09/25 13:59 BP 134/92 H 03/09/25 13:59 Pulse Ox 97 03/09/25 13:59 Oxygen Delivery Method Room Air 03/09/25 13:59 BMI result Body Mass Index 37.5 Tobacco/Smoking Status: Tobacco use Status Tobacco use date assessed 03/09/25 03/09/25 14:07 Patient Tobacco Use Status Never used Tobacco 03/09/25 14:07 e-Cigarette/Vaping Use Never Used 03/09/25 14:07 PHQ-9: PHQ-9 Score PHQ-9: Total score 19 03/09/25 14:44 Depression Screening Interpretation: Positive Depression Screening Follow-up: Existing condition and In treatment Thrive Assessment: Date of Thrive Assessment Date Thrive assessed 03/09/25 03/09/25 14:07 Currently or been in a relationship where the following occur: No concerns reported Const General: no acute distress and alert HENMT Ears: TM's normal bilaterally and EAC's normal Throat: Yes posterior oropharynx normal and Yes tonsils normal Neck Neck: Yes supple Thyroid: Thyroid normal Lymphatic: no lymphadenopathy noted Resp Auscultation: clear to auscultation bilaterally, no crackles, no rales and no wheezes Cardio Rate: regular rate Rhythm: regular rhythm Heart sounds: no murmurs GI Palpation (GI): Soft to palpation and nontender Auscultation: normal bowel sounds General: Yes no CVA tenderness Back/Spine/Pelvis Back: no CVA tenderness Cervical Spine: Cervical spine tenderness Thoracic/Lumbar Spine: lumbar spinal tenderness Skin Rashes: no rashes Extrem General: Yes no clubbing, cyanosis or edema Results Reviewed Results Reviewed: Laboratory Tests 02/27/25 03/06/25 02:34 11:31 WBC 8.0 Hgb 11.5 L Hct 37.8 Plt Count 389 Sodium 143 Potassium 4.2 Creatinine 0.75 Estimated GFR > 60 Fasting Glucose 82 Calcium 9.2 AST 18 ALT 20 Triglycerides 120 Cholesterol 181 LDL Cholesterol, Calc 100 H HDL Cholesterol 57 25-OH Vitamin D Total 44.4 TSH 1.50 Ur Specific [place] 1.020 Urine Protein See Note Urine Glucose (UA) 100 H Urine Blood Small (1+) H Urine Nitrite See Note Ur Leukocyte Esterase Trace H Coding Level of Care Code Est Pt Level 4 (49808) Diagnoses Hydronephrosis, bilateral N13.30 Pure hypercholesterolemia E78.00 Palpitations R00.2 Migraine without status migrainosus, not intractable, unspecified migraine type G43.909 Intractability: not intractable Migraine type: unspecified Status migrainosus presence: without status migrainosus Mild intermittent asthma without complication J45.20 Allergic rhinitis, unspecified seasonality, unspecified trigger J30.9 Allergic rhinitis seasonality: unspecified Allergic rhinitis trigger: unspecified Ureteral stricture, left N13.5 Renal calculi N20.0 Vitamin D deficiency E55.9 HLA-B27 spondyloarthropathy M47.899 Osteoarthritis of multiple joints, unspecified osteoarthritis type M15.9 Osteoarthritis type: unspecified Osteopenia of lumbar spine M85.88 Osteopenia location: lumbar spine Fibromyalgia M79.7 Insomnia, unspecified type G47.00 Insomnia type: unspecified Bipolar depression F31.9 Obesity (BMI 30-39.9) E66.9 Additional Codes PHQ-9 - 52622 - PHQ-9 Billing: Yes ([id number]) Assessment & Plan Assessment & Plan (1) Hydronephrosis, bilateral: Code(s): N13.30 - Unspecified hydronephrosis Category: Medical Plan: Her recent abdominal and pelvic CT done at the ER last week revealed the presence of a new right-sided hydronephrosis Her left-sided hydronephrosis appears unchanged from before Due to her new onset right-sided hydronephrosis, we will refer her for urgent urologic consult for further evaluation and management Per patient request, we will also refer her to Gynecology for further evaluation and management of her vaginal pain (2) Pure hypercholesterolemia: Code(s): E78.00 - Pure hypercholesterolemia, unspecified Category: Medical Plan: Results of her labs done a few days ago reviewed and discussed with patient Reinforced low cholesterol diet Continue Atorvastatin 20 mg QD Will recheck her labs and fasting lipids in 4 months for follow-up (3) Palpitations: Code(s): R00.2 - Palpitations Category: Medical Plan: Patient states that her palpitations have not been occurring as often lately Continue Metoprolol 25 mg BID Extended Holter monitor (3 days) and echocardiogram done back in February 2022 both came out normal Holter monitor showed baseline normal sinus rhythm with average heart beat of 77 beats per minute with no significant pauses or bradycardia noted. There was a total of 4322 PVCs accounting for 1.32% of total beats but no patient reported events noted She was seen by cardiology early last year and was reportedly reassured that her symptoms are primarily from her PVCs and she has no other abnormal cardiac issues or findings Have recommended weight loss and also low dose Metoprolol 25 mg BID, which she is currently still on and she appears to be doing well on the medication so far (4) Migraine: Code(s): G43.909 - Migraine, unspecified, not intractable, without status migrainosus Category: Medical Qualifiers: Intractability: not intractable Migraine type: unspecified Status migrainosus presence: without status migrainosus Qualified Code(s): G43.909 - Migraine, unspecified, not intractable, without status migrainosus Plan: Stable/controlled lately Reinforced avoidance of migraine triggers Continue Narariptan 2.5 mg once a day as needed and Vitamin B2 tablets 100 mg 2 times a day for headache prophylaxis Follow up with [facility] as scheduled (5) Mild intermittent asthma without complication: Code(s): J45.20 - Mild intermittent asthma, uncomplicated Category: Medical Plan: Controlled -? 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 Follow-up with cover making machine operator as scheduled (7) Ureteral stricture, left: Code(s): N13.5 - Crossing vessel and stricture of ureter without hydronephrosis Category: Medical Plan: She currently appears to only have about 45% of preserved left renal function with evidence of high-grade obstruction, likely due to the left ureteral stricture She eventually underwent diagnostic left RPG to further evaluate her left ureteral stricture and left hydronephrosis - retrograde pyelogram revealed (+) widely patent stricture and was negative for high-grade obstruction Follow up with [facility] as scheduled (8) Renal calculi: Code(s): N20.0 - Calculus of kidney Category: Medical Plan: S/P kidney stone removal and stent placement with urology on 05/23/2023 She had right stent insertion from 08/26/2024 to 09/30/2024 due to worsening right-sided hydronephrosis Follow up with urology as scheduled (9) Vitamin D deficiency: Code(s): E55.9 - Vitamin D deficiency, unspecified Category: Medical Plan: Continue Vitamin D3 2000 units QD (10) HLA-B27 spondyloarthropathy: Code(s): M47.899 - Other spondylosis, site unspecified Category: Medical Plan: Reinforced activity and weight-lifting restrictions Continue Gabapentin 800 mg TID, Duloxetine 60 mg QD and Sulfasalazine 500 gm 2 tablets every 12 hours (has taken Humira in the past with poor response) Patient underwent bilateral diagnostic L3, L4, DRL5, MBB with Dr. Thomas on 05/03/2021 - she reportedly experienced significant pain relief and was then scheduled for bilateral L3 L4 DR L5 MBB RFA with sedation and flouroscopy but this was denied by her insurance Had a trial of SI joint injection with pain management in February 2023 with good results Follow-up with rheumatology and with [facility] as scheduled (11) Osteoarthritis of multiple joints: Code(s): M15.9 - Polyosteoarthritis, unspecified Category: Medical Qualifiers: Osteoarthritis type: unspecified Qualified Code(s): M15.9 - Polyosteoarthritis, unspecified Plan: Especially involving the right hip and both hands S/P total right hip arthroplasty in August 2023 Continue Nabumetone 750 mg BID PRN Follow up with rheumatology as scheduled (12) Osteopenia: Comment: T scores 03/2023: Femur 0.4, femoral neck-0.7, LS -1.8 FRAX: 4.1/0.1 Code(s): M85.80 - Other specified disorders of bone density and structure, unspecified site Category: Medical Qualifiers: Osteopenia location: lumbar spine Qualified Code(s): M85.88 - Other specified disorders of bone density and structure, other site Plan: She had a BASELINE BMD done on 03/30/2023, which revealed (+) osteopenia based on the lowest T-score value of -1.8 in the lumbar spine Her FRAX score is 4.1% She is encouraged to continue daily Vitamin D and Calcium supplements and to try to exercise and stay as active as she can regularly Will continue to monitor her BMD every 2 to 3 years (13) Fibromyalgia: Code(s): M79.7 - Fibromyalgia Category: Medical Plan: Patient is again encouraged to try to stay active and exercise regularly to help manage her fibromyalgia symptoms better Continue Gabapentin 800 mg TID and Duloxetine 60 mg QD (14) Insomnia: Code(s): G47.00 - Insomnia, unspecified Category: Medical Qualifiers: Insomnia type: unspecified Qualified Code(s): G47.00 - Insomnia, unspecified Plan: Sleep hygiene reinforced Continue Zolpidem 10 mg once a day at bedtime as needed (15) Bipolar depression: Code(s): F31.9 - Bipolar disorder, unspecified Category: Medical Plan: Continue Clonazepam 1 mg twice a day as needed and Citalopram 10 mg once a day Follow-up with Psychiatry as scheduled - has been seeing Juan C Garcia of [facility] since 01/11/2022 (16) Obesity (BMI 30-39.9): Code(s): E66.9 - Obesity, unspecified Category: Medical Plan: Reinforced diet; exercise and weight options are limited and not practical due to her multiple physical issues and comorbidities Plan Follow-up in 4 months Orders: Orders Complete Blood Count Auto Diff 4 Months D64.9 - Anemia, unspecified Comprehensive [place]. Panel Fast 4 Months E78.00 - Pure hypercholesterolemia, unspecified Lipid Panel 4 Months E78.00 - Pure hypercholesterolemia, unspecified Referrals [employer]OUND[employer] Referral K66.0 - Peritoneal adhesions (postprocedural) (postinfection), N13.30 - Unspecified hydronephrosis
--- OUTSIDE RECORDS SUMMARY | 2025-03-09 14:03 | XMS_ITS | Encounter Summary ---
Author Organization [facility] Address [address] [place] [address] Care Team Providers Care Flap Presser Name Role Phone Christ Goodwin MD Primary Care Provider Encounter Details Date Type Department Care Team (Late st Contact Info) Description 01/30/[address] [facility] - Main Lab [address] [facility] [place] [address] Ajay Leonard PA [address] [place] [address] Urinary tract infection, site not [...] Urine No growth 01/31/2025 12:44 PM EDT [facility]) [facility] Urine Urine specimen obtained by clean catch procedure / Unknown 01/30/2025 01/30/2025 5:39 PM EDT us Ajay [facility] MICROBIOLOGY - GENERAL ORD ERABLES Final Result [facility] ([facility]) H[facility]PITAL LAB [address] [place] [address], documented in this encounter Visit Diagnoses Diagnosis Urinary tract infection, site not specified documented in this encounter Care Teams Flap Presser Relationship Specialty Start Date End Date Christ Goodwin MD [address] [place] [address] Dr [address] [place] MD PCP - General Internal Medicine 07/01/24 documented as of this encounter
--- OUTSIDE RECORDS SUMMARY | 2025-03-09 14:03 | XMS_ITS | Clinical Summary ---
Author Organization [facility] Address [address] [place] [address] Care Team Providers Care Machine Assembler Name Role Phone Teresa Vega PA-C Primary Care Provider [phone] Source Comments PLEASE NOTE, if this patient [...] mcg/actuation nasal sprayIndication s:Seasonal allergies Place 1 [place] into the nostril(s) once daily. 16 g [...] 10/21/2014 Nephrolithiasis 08/19/2014 Overview (02/15/2015): [facility] [place] ureteroscopy with manipulation of lt renal stone and stent placed at [facility] January 27 2015 S/P unilateral salpingo-oophorectomy. LEFT 05/05 Overview (05/22/2014): [place] [facility] [place] History of normal mammogram 04/16/2014 History of cervical cancer 01/26/2014 Overview (01/26/2014): Seen by recreation therapist/onc at [facility] [place] Hysterectomy, had +nodes, received chemo and radiation On Estrogen She has persistent ovarian cyst and will undergo resection around April: explorat laparotomy, biopsy, etc Migraine headache 01/26/2014 Overview (01/26/2014): Has seen [facility] Prescribed IC NAratriptan HCL 2.5mg HLD [...] Follows with Psych: Benitez Nick MD at [address] [place] [address] On: Celexa, Ambien and Klonopin Resolved Problems [...] Plan of Treatment Not on file Insurance [place] Care Teams Machine Assembler Relationship Specialty Start Date End Date Teresa Vega PA-C [address] [place] [address] PCP - General 10/01/18
== END 2025-03-09 15:05 | disposition home or self-care (01) ==
LOC: HO.HMCH 13:52
PROVIDERS: PCP Internal Medicine; Visit Provider Internal Medicine
DX: R00.2 Palpitations (principal); E66.9 Obesity, unspecified; Z68.37 Body mass index [BMI] 37.0-37.9, adult; F31.9 Bipolar disorder, unspecified; N13.30 Unspecified hydronephrosis; E78.00 Pure hypercholesterolemia, unspecified; G43.909 Migraine, unspecified, not intractable, without status migrainosus; J45.20 Mild intermittent asthma, uncomplicated; J30.9 Allergic rhinitis, unspecified; N13.5 Crossing vessel and stricture of ureter without hydronephrosis; N20.0 Calculus of kidney; E55.9 Vitamin D deficiency, unspecified

== ENCOUNTER → 2025-03-09 13:51 | Outpatient (BNVA) | payer OTHER, SELFPAY | PROVIDERS: PCP Internal Medicine; Visit Provider Internal Medicine | DX: K59.01 Slow transit constipation (principal); K58.2 Mixed irritable bowel syndrome; K21.9 Gastro-esophageal reflux disease without esophagitis; R14.0 Abdominal distension (gaseous); R11.2 Nausea with vomiting, unspecified; K59.1 Functional diarrhea; N13.30 Unspecified hydronephrosis; E78.00 Pure hypercholesterolemia, unspecified; R00.2 Palpitations; G43.909 Migraine, unspecified, not intractable, without status migrainosus; J45.20 Mild intermittent asthma, uncomplicated; J30.9 Allergic rhinitis, unspecified; N13.5 Crossing vessel and stricture of ureter without hydronephrosis; N20.0 Calculus of kidney; E55.9 Vitamin D deficiency, unspecified; M47.899 Other spondylosis, site unspecified; M15.9 Polyosteoarthritis, unspecified; M85.88 Other specified disorders of bone density and structure, other site; M79.7 Fibromyalgia; G47.00 Insomnia, unspecified; F31.9 Bipolar disorder, unspecified; E66.9 Obesity, unspecified; Z68.37 Body mass index [BMI] 37.0-37.9, adult; Z79.899 Other long term (current) drug therapy; Z96.641 Presence of right artificial hip joint; Z13.31 Encounter for screening for depression; Z13.39 Encounter for screening examination for other mental health and behavioral disorders | CPT/HCPCS: 96127; 99212 ==

== ENCOUNTER 2025-03-09 15:18 | Outpatient (AMB) | payer OTHER, SELFPAY ==
--- NOTE | 2025-03-09 15:19 | MHC.OFFVIS ---
Intake Visit Reasons: IBS, GERD ,discuss colo, r/s to 04:15 Intake Note: Est pt for mgmt of IBS + GERD. Pt to discuss colo. CC; Pt seen in ED @ [facility] [place] for abd pain 12/2024. N+V. Pt denies any additional sx at this time. Pt has had multiple episodes since last visit. Pt also went to [place] within the last 2-3 mos. Personal Financial Counselor Required: No Accompanied by: Self / Same As Patient Allergies hazelnut Allergy (Severe, Verified 03/09/25 14:42) Itching, coughing, and hives Penicillins (PENICILLINS) Allergy (Severe, Verified 03/09/25 14:42) HIVES birch Allergy (Intermediate, Verified 03/09/25 14:42) Itching Iodinated Contrast Media (IV CONTRAST) Allergy (Intermediate, Verified 03/09/25 14:42) HIVES peanut (PEANUTS) Allergy (Intermediate, Verified 03/09/25 14:42) HIVES shellfish derived (SHELLFISH DERIVED) Allergy (Intermediate, Verified 03/09/25 14:42) HIVES almond Allergy (Mild, Verified 03/09/25 14:42) Hives cat dander Allergy (Mild, Verified 03/09/25 14:42) cough/hives dog dander Allergy (Mild, Verified 03/09/25 14:42) cough/hives pollen extracts Allergy (Mild, Verified 03/09/25 14:42) runny nose, itchy eyes HPI HPI IBS, GERD ,discuss colo, r/s to 04:15: Details: LAST VISIT: Constipation IBS (irritable bowel syndrome) GERD (gastroesophageal reflux disease) Postprandial abdominal bloating Nausea and vomiting in adult Diarrhea Plan Continue current management with PPI and H2 margaret. Avoid dietary triggers and late night snacking. Staying upright for minimum 3 hours after meals discussed with patient. We did go over colonoscopy and patient would rather not go through with it. Patient had incomplete colonoscopy due to multiple adhesions, status post surgeries. Patient reports no abdominal pain. Exam negative for any abdominal wall hernias, tenderness. Patient will follow-up in 4 months, sooner on as needed basis. She is agreeable to this plan and verbalizes understanding of instructions. She was given the opportunity to ask questions and all questions answered. ? Thank you for allowing me to participate in her care New cyanocobalamin (vitamin B-12) ER 1,000 mcg PO DAILY 90 tabs 3RF Discontinued clindamycin HCl Discontinued Reason: Patient no longer taking 600 mg (2 x 300 mg) PO ONCE 1 day 2 caps 0RF 1 hr prior to dental work TODAY'S VISIT Patient is here today for follow-up. Patient reports that she had couple episodes of severe abdominal pain after eating meals that they were later in the day and bigger. Patient states that she was in [place] and was trying to avoid eating throughout the day when she got to the hotel she ate quite large meal and she was sick the whole night and following day. Patient reports epigastric pain severe bloating, diarrhea diarrhea, nausea without vomiting. Patient states that she does not believe that she has had food poisoning because this is what usually happens when she eats bigger meal. Patient still reports to have abdominal pain and bloating postprandially. States that acid reflux has been under control. Patient states that she does not want to go for colonoscopy due to bed experience in the past. Patient was found to have torturous colon and did not felt well after the procedure. Patient had upper endoscopy in July of 2020. Patient will be sent for another endoscopy to further evaluate. FORMERLY [facility], [facility] Medical History Renal calculi Insomnia Osteoarthritis of multiple joints Hydronephrosis, bilateral Osteopenia Sacroiliac joint pain Encounter for medication monitoring Palpitations Gastritis Fibromyalgia Hx of small bowel obstruction Abdominal pain Obesity (BMI 30-39.9) Bipolar depression Vitamin D deficiency Migraine Allergic rhinitis Mild intermittent asthma without complication Pure hypercholesterolemia Primary osteoarthritis of right hip Surgical History S/P ureteral stent placement History of total hip arthroplasty (~08/15/23) S/P cystourethroscopy with dilation of urethral stricture (~07/21/20) History of esophagogastroduodenoscopy (EGD) Hx of unilateral oophorectomy Hx of colonoscopy Hx of cholecystectomy Hx of cystoscopy History of extraction of renal calculus History of carpal tunnel surgery History of hand surgery History of hysterectomy Family History Father Kidney problem Diabetes Mother Kidney malignancy Diabetes Brother Asthma Diabetes Social History Household Members: Spouse Housing: House Are you a primary social worker palliative care to a significant other at home: No Do you presently have visiting nurse or other home services: Yes Unable to assess alcohol history related to: Unknown Alcohol intake: never Comment: counts correct Patient Tobacco Use Status: Never used Tobacco e-Cigarette/Vaping Use: Never Used Second Hand Smoke Exposure: No Advance Directives Date on File: 08/08/23 service: No Current occupational status: disabled Cognitive needs: No Hearing needs: No Vision needs: Yes Review of Systems Const Denies weight gain and Denies weight loss ENT Reports no additional complaints, Denies dysphagia and Denies odynophagia Card Reports no additional complaints Resp Reports no additional complaints GI Reports abdominal pain (R&LUQ occasional), Denies belching, Denies melena, Reports bloating, Denies change in bowel habits, Reports constipation (Occasional), Denies dysphagia, Denies excessive flatus, Denies dyspepsia, Denies heartburn, Denies diarrhea, Reports loose stools (Occasional), Denies nausea, Denies odynophagia and Denies vomiting Reports no additional complaints Musc Reports no additional complaints Neuro Reports no additional complaints Psych Reports no additional complaints Endo Reports no additional complaints Physical Exam Const General: healthy appearing and no acute distress Nutritional Appearance: obese Orientation/consciousness: patient oriented x3 Resp Effort & Inspection: normal respiratory effort, able to speak in complete sentences, no tracheal deviation and symmetric chest movement Auscultation: clear to auscultation bilaterally Cardio Rate: regular rate GI Inspection: Yes normal to inspection, No distended and Yes obesity Palpation (GI): Soft to palpation, not firm, nontender and No hepatosplenomegaly present Auscultation: normal bowel sounds General: Yes no CVA tenderness Back/Spine/Pelvis Back: no CVA tenderness Skin General skin exam: elasticity normal, turgor normal and dry skin Neuro General: patient oriented x3 Psych Appearance: grossly normal Mental Status: mental status grossly normal Affect: normal affect Assessment & Plan Assessment & Plan (1) Constipation: Code(s): K59.00 - Constipation, unspecified Qualifiers: Constipation type: slow transit constipation Qualified Code(s): K59.01 - Slow transit constipation (2) Irritable bowel syndrome: Code(s): K58.9 - Irritable bowel syndrome, unspecified Qualifiers: Irritable bowel syndrome type: with both diarrhea and constipation Qualified Code(s): K58.2 - Mixed irritable bowel syndrome (3) Gastroesophageal reflux disease: Code(s): K21.9 - Gastro-esophageal reflux disease without esophagitis Qualifiers: Esophagitis presence: esophagitis presence not specified Qualified Code(s): K21.9 - Gastro-esophageal reflux disease without esophagitis (4) Postprandial abdominal bloating: Code(s): R14.0 - Abdominal distension (gaseous) (5) Nausea and vomiting in adult patient: Code(s): R11.2 - Nausea with vomiting, unspecified (6) Diarrhea: Code(s): R19.7 - Diarrhea, unspecified Qualifiers: Diarrhea type: functional diarrhea Qualified Code(s): K59.1 - Functional diarrhea Plan Patient will continue pantoprazole every morning. Avoid dietary triggers in late night snacking. Staying upright for minimum 3 hours after meals discussed with patient. Patient will be sent for upper endoscopy to better evaluate. Patient will try Creon to see if this will help her aid digestion. Patient feels like almost anything she eats goes right through her. Patient will continue low FODMAP diet. Will try vxsu-zhm-crpiacy fiber with pre and probiotics. Patient will follow-up in the office after the procedure, sooner on as needed basis. She is agreeable to this plan and verbalizes understanding of instructions. She was given the opportunity to ask questions and all questions answered. Thank you for allowing me to participate in her care Medications: New hbhjru-vvptukbz-qvqjapu 36,000-114,000- 180,000 unit (Creon) administer with meals and/or snacks 1 cap PO QID 120 caps 3RF K86.89 - Other specified diseases of pancreas Coding Level of Care Code Est Pt Level 4 (00905) Diagnoses Slow transit constipation K59.01 Constipation type: slow transit constipation Irritable bowel syndrome with both constipation and diarrhea K58.2 Irritable bowel syndrome type: with both diarrhea and constipation Gastroesophageal reflux disease, unspecified whether esophagitis present K21.9 Esophagitis presence: esophagitis presence not specified Postprandial abdominal bloating R14.0 Nausea and vomiting in adult patient R11.2 Functional diarrhea K59.1 Diarrhea type: functional diarrhea Time Spent (min) 40 Comment 25 minutes spent with patient and additional 10 minutes spent reviewing her records
== END 2025-03-09 16:13 | disposition home or self-care (01) ==
LOC: HO.HGI 15:19
PROVIDERS: PCP Internal Medicine; Visit Provider Nurse Practitioner Family
DX: K59.01 Slow transit constipation (principal); K58.2 Mixed irritable bowel syndrome; K21.9 Gastro-esophageal reflux disease without esophagitis; R14.0 Abdominal distension (gaseous); R11.2 Nausea with vomiting, unspecified; K59.1 Functional diarrhea
CPT/HCPCS: 99214

== ENCOUNTER 2025-04-22 15:04 | Outpatient (AMB) | payer OTHER, SELFPAY ==
--- NOTE | 2025-04-22 15:10 | MHC.OFFVIS ---
Vital Signs 04/22/25 15:11 Weight 194 lb BP 148/72 H Blood Pressure Location Lt brachial Position Sitting Respiration 18 Pulse 65 Pulse Source Pulse Oximeter Pulse Oximetry (%) 97 Oxygen Delivery Method Room Air Intake Visit Reasons: Follow Up Pt Request Staff [employer] Officer Required: No Allergies hazelnut Allergy (Severe, Verified 04/22/25 15:11) Itching, coughing, and hives Penicillins (PENICILLINS) Allergy (Severe, Verified 04/22/25 15:11) HIVES birch Allergy (Intermediate, Verified 04/22/25 15:11) Itching Iodinated Contrast Media (IV CONTRAST) Allergy (Intermediate, Verified 04/22/25 15:11) HIVES peanut (PEANUTS) Allergy (Intermediate, Verified 04/22/25 15:11) HIVES shellfish derived (SHELLFISH DERIVED) Allergy (Intermediate, Verified 04/22/25 15:11) HIVES almond Allergy (Mild, Verified 04/22/25 15:11) Hives cat dander Allergy (Mild, Verified 04/22/25 15:11) cough/hives dog dander Allergy (Mild, Verified 04/22/25 15:11) cough/hives pollen extracts Allergy (Mild, Verified 04/22/25 15:11) runny nose, itchy eyes HPI Comments Details: Yanci is back in my office after yet another year of absence. Last time she was in my office we agreed to go for bilateral medial branch block of her lower back L3, L4, L5 to treat spondylosis of the lumbar spine. She had physical therapy for her lumbar spine several years ago, she reports that physical therapy aggravated her pain. However she continues home exercise programs at this time in the hope that physical therapy will be effective. On the MRI there are significant arthritic joints and spondylosis. I will schedule her for the injection as above. Prior: History of right sciatica/nerve pain, chronic, has had injections with Dr. Thomas. Had hip and SI joint injections. Was referred to Ortho for hip replacement. S/P right THR 08/15/23. She says that the pain she has now is the same pain she had prior to hip replacements, but less in severity. However she is worried that it has not gone away completely. Pain is right lower back, SI joint area, runs down to right thigh. Stops at the thigh. Does not radiate to knee or foot. Denies numbness. Denies weakness but pain stops her with prolonged walking. Had PT/rehab after surgery. History of vertebral fracture T10 and T11. No history of kyphoplasty. No lumbar surgeries. I don't think she's had lumbar epidural. FORMERLY [facility] Medical History Renal calculi Insomnia Osteoarthritis of multiple joints Hydronephrosis, bilateral Osteopenia Sacroiliac joint pain Encounter for medication monitoring Palpitations Gastritis Fibromyalgia Hx of small bowel obstruction Abdominal pain Obesity (BMI 30-39.9) Bipolar depression Vitamin D deficiency Migraine Allergic rhinitis Mild intermittent asthma without complication Pure hypercholesterolemia Primary osteoarthritis of right hip Surgical History S/P ureteral stent placement History of total hip arthroplasty (~08/15/23) S/P cystourethroscopy with dilation of urethral stricture (~07/21/20) History of esophagogastroduodenoscopy (EGD) Hx of unilateral oophorectomy Hx of colonoscopy Hx of cholecystectomy Hx of cystoscopy History of extraction of renal calculus History of carpal tunnel surgery History of hand surgery History of hysterectomy Family History Father Kidney problem Diabetes Mother Kidney malignancy Diabetes Brother Asthma Diabetes Social History Household Members: Spouse Housing: House Are you a primary career developer to a significant other at home: No Do you presently have visiting nurse or other home services: Yes Unable to assess alcohol history related to: Unknown Alcohol intake: never Comment: counts correct Patient Tobacco Use Status: Never used Tobacco e-Cigarette/Vaping Use: Never Used Second Hand Smoke Exposure: No Advance Directives Date on File: 08/08/23 service: No Current occupational status: disabled Cognitive needs: No Hearing needs: No Vision needs: Yes Review of Systems Const All systems reviewed & are unremarkable except as noted in HPI and below ENT Reports Normal hearing present Neuro Reports Normal hearing present and Denies Abnormal speech present Physical Exam Vital Signs: Last Vital Signs Pulse 65 04/22/25 15:11 Resp 18 04/22/25 15:11 BP 148/72 H 04/22/25 15:11 Pulse Ox 97 04/22/25 15:11 Oxygen Delivery Method Room Air 04/22/25 15:11 Const General: healthy appearing, no acute distress and well developed Nutritional Appearance: obese Orientation/consciousness: patient oriented x3 HEENT Head: Yes normocephalic and Yes atraumatic Ears: hearing grossly normal bilaterally Mouth: Normal oral and palatal mucosa present Throat: Yes posterior oropharynx normal, Yes tonsils normal and Yes uvula midline Eyes General: appearance normal, both eyes and all related structures Eyelids: Yes eyelids normal Pupils: Equal, round and reactive pupils present EOM: EOMs intact bilaterally Neck Neck: Yes normal visual inspection and Yes no JVD Resp Effort & Inspection: normal respiratory effort, able to speak in complete sentences, normal respiratory pattern, no audible wheezes and no cough Cardio Jugular venous distension: no JVD GI Inspection: Yes obesity Back/Spine/Pelvis Other: Tenderness on palpation in projection of most lower portion of the spinal processes of the L4-5 and S1 vertebra. Loading test is positive bilaterally. SLR is negative bilaterally. On physical exam demonstrates normal strength of bilateral lower extremities. Skin General skin exam: elasticity normal, turgor normal and dry skin Neuro General: patient oriented x3 Cranial nerves: Yes Equal, round and reactive pupils present and Yes Normal hearing present Cognition (Neuro): normal cognition Speech: No Abnormal speech present Psych Appearance: grossly normal Mental Status: mental status grossly normal Speech and movement: Normal speech and movement present Affect: normal affect Attitude: cooperative Thought process: Normal thought process present Thought content: Normal thought content present Insight: Good insight present (Psych) Judgement: Good judgement present (Psych) Results Reviewed Results Reviewed: MRI of the lumbar spine 2023 CORONAL ALIGNMENT: Normal. SAGITTAL ALIGNMENT: There is 4 mm of grade 1 degenerative spondylolisthesis at L4-L5 without spondylolysis. The remainder of the lumbar spine is anatomically aligned. LUMBOSACRAL JUNCTION: Normal. There are 5 jhq-eih-cgekclo lumbar-type vertebral bodies. VERTEBRAL BODIES: There is gdhu-np-vcojirnh anterior wedging of the L1 vertebral body which appears chronic and healed. There is slight anterior wedging of T12 which appears chronic and healed and there is moderate anterior wedging of T11, also chronic and healed. Otherwise vertebral body heights are well maintained. No significant retropulsion. DISC SPACES AND ENDPLATES: There are mild degrees of disc volume loss at L3-L4, L4-L5 and L5-S1 with mild degrees of loss of intradiscal T2-weighted signal at these levels with central Schmorl's nodes at the levels between L1-L2 and L3-L4 inclusive, with uhgb-ln-yvtaqvfw degrees of anterolateral spondylosis throughout the lumbar spine. There is zgin-wb-xmzffwuk disc volume loss at L1-L2. There are central Schmorl's nodes at T12-L1 with moderate anterior marginal spondylosis asymmetric to the right. Skzgbwpq-zd-xcuevt disc volume loss at T11-T12 with disc desiccation, Schmorl's nodes and moderate spondylosis. Central Schmorl's nodes, disc desiccation, pdem-bq-tdxgvdal volume loss and mild spondylosis at T10-T11. SPINAL CANAL: No abnormal developmental findings. BONE MARROW: No suspicious marrow-replacing process or bone marrow edema. CONUS MEDULLARIS: Terminates at L1. Morphology and signal is normal. INTRADURAL NERVE ROOTS: Within normal limits. L5-S1: There is concentric disc bulging with superimposed broad-based central extruded disc herniation with mild caudal migration encroaching on the ventral epidural fat without S1 nerve root impingement or thecal sac encroachment. There is csmd-cb-mndenmmq bilateral facet joint arthropathy without significant canal stenosis. There is taba-ic-ygxxwrua left-sided and moderate right-sided foraminal stenosis, with a superimposed right foraminal disc herniation impinging on the exiting right L5 nerve root. L4-L5: Unroofing of the posterior disc margin is noted consistent with grade 1 spondylolisthesis. There is pseudodisc bulging with a superimposed left-sided foraminal/extraforaminal disc protrusion. There is vmwb-wh-jywskfzt flattening of the ventral dural sac and there is ligamentum flavum thickening with ydrtlfae-qq-yrkfbo bilateral facet joint arthrosis. Mild central canal narrowing is noted and there is moderate bilateral lateral recess stenosis slightly encroaching on the traversing L5 nerve roots. Luhv-kl-pkmbmbvi right and moderate left-sided foraminal stenosis is noted with disc herniation impinging on the left L4 nerve root. L3-L4: There is concentric disc bulging, with slight flattening of the ventral dural sac. There is clcw-xy-pvifsnqj bilateral facet joint arthrosis without significant canal stenosis. There is mild foraminal narrowing bilaterally without neural impingement. L2-L3: Shallow broad-based central to right central disc protrusion with mild indentation of the ventral thecal sac. Minor right-sided facet joint arthropathy noted. No significant canal or neural foraminal stenosis. L1-L2: Concentric disc bulging is noted, with superimposed central disc protrusion and flattening of the ventral dural sac. No significant facet joint arthrosis, canal or neural foraminal stenosis. On sagittal and axial T1 views, there is broad-based central extruded disc herniation at T11-T12 with slight caudal migration without cord impingement. There is mild ventral cord deformity at this level, which is likely chronic. There is mxoi-gp-jcnldgwt canal stenosis at this level and there is facet joint arthrosis bilaterally with mild bilateral foraminal narrowing. Probable right posterolateral disc osteophyte complex as well abuts the extraforaminal right T11 nerve root. PARAVERTEBRAL AND INCLUDED EXTRASPINAL SOFT TISSUES: The paravertebral soft tissues appear grossly unremarkable. Incidental note is made of left-sided hydroureteronephrosis, which is incompletely imaged. There is also some fullness of the right renal collecting system and suspicion for a 1.4 cm simple-appearing cortical cyst medial cortex lower pole right kidney. These findings are similar to the CT abdomen of 08/27/2023. Assessment & Plan Assessment & Plan (1) Spondylosis of lumbar region without myelopathy or radiculopathy: Code(s): M47.816 - Spondylosis without myelopathy or radiculopathy, lumbar region Category: Medical (2) Lumbar degenerative disc disease: Code(s): M51.36 - Other intervertebral disc degeneration, lumbar region Category: Medical Qualifiers: Disc-related pain type: discogenic back pain and lower extremity pain Qualified Code(s): M51.362 - Other intervertebral disc degeneration, lumbar region with discogenic back pain and lower extremity pain (3) Status post total hip replacement, right: Code(s): Z96.641 - Presence of right artificial hip joint Category: Surgical Plan MRI was reviewed by me personally and although there are multiple disc degeneration changes it should not be her pain generations. There is significant facet joint arthropathy noted in the MRI report. I will schedule her for bilateral L3, L4, dorsal ramus L5 medial branch block diagnostic. She insists on this being done deep sedation. We will use propofol only. We will meet after the diagnostic injection and I will schedule her for possible sprint PNS versus RFA. Coding Level of Care Code Est Pt Level 3 (97603) Diagnoses Spondylosis of lumbar region without myelopathy or radiculopathy M47.816 Degeneration of intervertebral disc of lumbar region with discogenic back pain and lower extremity pain M51.362 Disc-related pain type: discogenic back pain and lower extremity pain Status post total hip replacement, right Z96.641
[2025-04-22 15:11] VITALS: BP 148/72; PULSE 65; RESP 18; O2SAT 97
--- OUTSIDE RECORDS SUMMARY | 2025-04-22 18:40 | XMS_ITS | Encounter Summary ---
Author Organization [facility] Address [address] [place] [address] Care Team Providers Care Writer Name Role Phone Christ Goodwin MD Primary Care Provider Encounter Details Date Type Department Care Team (Late st Contact Info) Description 01/30/2025 Lab Requisition [facility] - Main Lab [address] [facility] [place] [address] Ajay Leonard PA [address] [place] [address] Urinary tract infection, site not [...] Urine No growth 01/31/2025 12:44 PM EDT [facility] ([facility]) [facility] Urine Urine specimen obtained by clean catch procedure / Unknown 01/30/2025 01/30/2025 5:39 PM EDT us [facility] MICROBIOLOGY - GENERAL ORD ERABLES Final Result [facility] ([facility] H[facility] LAB [address] [place] [address], documented in this encounter Visit Diagnoses Diagnosis Urinary tract infection, site not specified documented in this encounter Care Teams Writer Relationship Specialty Start Date End Date Christ Goodwin MD [address] [place] [address] Dr [address] [place] PCP - General Internal Medicine 07/01/24 documented as of this encounter
--- OUTSIDE RECORDS SUMMARY | 2025-04-22 18:40 | XMS_ITS | Clinical Summary ---
Author Organization [facility] Address [address] [place] [address] Phone Care Team Providers Care Foreign Language Professor Name Role Phone Christ Silva MD Primary Care Provider [phone] Allergies No known active allergies Encounters Date Type Department Care Team Description 01/30/2025 Lab Requisition [facility] - Main Lab [address] [place] [address] Ajay Leonard PA Urinary tract infection, site not specified from Last 3 Months Social History Tobacco Use Types Packs/Day Years [...] Breast Cancer Screening 12/20/2022 12/21/19, 08/22/2019, 03/28/2018 Cholesterol Screening (Lipid Panel) 05/24/2024 Colorectal Cancer Screening: Colonoscopy 05/24/2024 HIV Screening 05/24/2024 Hepatitis C Screening 05/24/2024 Social Influencers of Health Screening 05/24/2024 Depression Screening 08/06/2024 COVID-19 Vaccine ( season) 2025 12/26/2021, 07/11/2021, 11/21/2020, Additional history exists Influenza Vaccine (#1) 2025 , 05/28/2023, 07/27/2022, Additional history exists DTaP,Tdap,and Td Vaccines (2 - Td or Tdap) 05/03/2026 05/03/2016 Zoster Vaccines Completed 05/04/2021, 03/02/2021 Pneumococcal Vaccine: 50+ Years Completed 06/24/2024, 07/05/2018, 04/09/2017 HIB Vaccines Aged [...] EDT Urinary tract infection, site not specified LEROY SCREENING DIGITAL Routine 12/20/2020 7:17 PM EDT Encounter for screening mammogram for malignant neoplasm of breast from Last 3 Months or Most Recently Relevant to Health Maintenance Results * Culture urine (01/30/2025 12:00 AM EDT) Culture, Urine No growth 01/31/2025 12:44 PM EDT [facility] Urine Urine specimen obtained by clean catch procedure / Unknown 01/30/2025 01/30/2025 5:39 PM EDT us [facility] MICROBIOLOGY - GENERAL ORD ERABLES Final Result [facility] [address] [place] [address], [place] [phone] * LEROY SCREENING DIGITAL (12/20/2020 7:17 PM EDT) Anatomical Region Laterality Modality Mammography 12/20/2020 2:13 PM EDT Narrative 12/20/2020 7:17 PM EDT [facility] Diagnostic Imaging Department [address] [place] [id number] Patient: ELISHA MILLS /Age/Sex: 1970 - 50 - F Unit#: [id number] Location/Status: SPDIMA/REG CLI Mnemonic/Ordering Site: [facility] Ordering Physician: CHRIST SILVA MD [facility] Screening Digital - 12/20/20 - 1508 History: Bilateral breast cancer screening. Technique: Digital mammography. Conventional CC and MLO projections with tomosynthesis MLO views and computer aided detection Findings: Comparison:[facility] 08/21/2019, dating back to 03/09/2011. Breast tissue is mostly fatty replaced (category a density) bilaterally (as calculated by [employer] Volpara software). There are benign calcifications on the right. There is no suspicious group of microcalcification, no suspicious mass, architectural distortion or suspicious asymmetry. Impression: No evidence of malignancy. BIRADS category 2, benign findings, 3342F 52686, [id number] Note: Patient information entered into a reminder system with a target due date for the next mammogram; PQRI II 6523B Dictating Physician: MIKEY ROMAN MD Electronically Signed by: MIKEY ROMAN MD Dic Date/Time: 12/20/201916 Sign date/Time: 12/20/201916 Procedure Note Mikey Roman MD - 07/25/2022 [facility] Diagnostic Imaging Department [address] [place] [id number] Patient: ELISHA MILLS /Age/Sex: 1970 - 50 - F Unit#: [id number] Location/Status: [facility] CLI Mnemonic/Ordering Site: [facility] Ordering Physician: CHRIST SILVA MD [facility] Screening Digital - 12/20/20 - 1508 History: Bilateral breast cancer screening. Technique: Digital mammography. Conventional CC and MLO projections with tomosynthesis MLO views and computer aided detection Findings: Comparison:[facility] 08/21/2019, dating back to 03/09/2011. Breast tissue is mostly fatty replaced (category a density) bilaterally(as calculated by [employer] Volpara software). There are benign calcificationson the right. There is no suspicious group of microcalcification, no suspiciousmass, architectural distortion or suspicious asymmetry. Impression: No evidence of malignancy. BIRADS category 2, benign findings, 3342F [id number], [id number] Note: Patient information entered into a reminder system with a targetdue date for the next mammogram; PQRI II 4396N Dictating Physician: MIKEY ROMAN MD Electronically Signed by: MIKEY ROMAN MD Dic Date/Time: 12/20/201916 Sign date/Time: 12/20/201916 Christ Silva MD IMG BI PROCEDURES Final Resu lt from Last 3 Months or Most Recently Relevant to Health Maintenance Insurance [facility] [employer] MEDICA[place] - [place] Care Teams Foreign Language Professor Relationship Specialty Start Date End Date Christ Silva MD [address] [place] [address] [address] [place], [place] PCP - General Internal Medicine 07/01/24
--- OUTSIDE RECORDS SUMMARY | 2025-04-22 18:40 | XMS_ITS | Clinical Summary ---
Author Organization [facility] Address [address] [place] [address] Care Team Providers Care Staff Toxicologist Name Role Phone Teresa Vega PA-C Primary Care Provider [phone] Source Comments PLEASE NOTE, if this patient [...] mcg/actuation nasal sprayIndication s:Seasonal allergies Place 1 [place] into the nostril(s) once daily. 16 g [...] 10/21/2014 Nephrolithiasis 08/19/2014 Overview (02/15/2015): Follows at [facility]rolog Lt ureteroscopy with manipulation of lt renal stone and stent placed at [facility] January 27 2015 S/P unilateral salpingo-oophorectomy. LEFT 05/05 Overview (05/22/2014): Done at [facility] on 05/05/14 History of normal mammogram 04/16/2014 History of cervical cancer 01/26/2014 Overview (01/26/2014): Seen by [employer]/onc at [facility] Sp Hysterectomy, had +nodes, received chemo and radiation On Estrogen She has persistent ovarian cyst and will undergo resection around April: explorat laparotomy, biopsy, etc Migraine headache 01/26/2014 Overview (01/26/2014): Has seen [facility] Neuro Prescribed IC NAratriptan HCL 2.5mg [...] Follows with Psych: Benitez Nick MD at [address] [place] [address] On: Celexa, Ambien and Klonopin Resolved Problems [...] Plan of Treatment Not on file Insurance [place] MEDICA[place] Care Teams Staff Toxicologist Relationship Specialty Start Date End Date Teresa Vega PA-C [address] [place] [address] PCP - General 10/01/18
== END 2025-04-22 15:43 | disposition home or self-care (01) ==
LOC: HO.PMC 15:05
PROVIDERS: PCP Internal Medicine; Visit Provider Anesthesiology
DX: M47.816 Spondylosis without myelopathy or radiculopathy, lumbar region (principal); M51.362 Other intervertebral disc degeneration, lumbar region with discogenic back pain and lower extremity pain; Z96.641 Presence of right artificial hip joint
CPT/HCPCS: 99213

== ENCOUNTER → 2025-04-22 15:04 | Outpatient (BNVA) | payer OTHER, SELFPAY | PROVIDERS: PCP Internal Medicine; Visit Provider Anesthesiology | DX: M47.816 Spondylosis without myelopathy or radiculopathy, lumbar region (principal); M51.362 Other intervertebral disc degeneration, lumbar region with discogenic back pain and lower extremity pain; Z96.641 Presence of right artificial hip joint | CPT/HCPCS: 99212 ==

== ENCOUNTER 2025-04-23 17:53 | Inpatient (IN) | payer OTHER, SELFPAY ==
--- NOTE | ~2025-04-23 | CT_ITS ---
CLINICAL HISTORY: Abdominal pain. CT Abdomen and Pelvis WO Contrast COMPARISON: CT/SR - CT KIDNEY STONE - 02/27/25 02:41 EDT FINDINGS: Detail limited by artifacts. Small hiatal hernia. Diffusely hypodense liver consistent with hepatic steatosis. Normal spleen. Severe left and mild right hydronephrosis. Bilateral ureterectasis. No visible ureteral calculi. Nonobstructing bilateral renal calculi. Normal adrenal glands. Normal pancreas. Status post cholecystectomy. No abnormal biliary dilation. Air-fluid levels in dilated small bowel loops measuring up to 3.1 cm in diameter. There is a transition point in the right lower quadrant. No mucosal thickening or pneumatosis. Normal appendix. Mild diffuse bladder wall thickening. Status post hysterectomy. No ascites. No pneumoperitoneum. No lymphadenopathy. No acute fracture. Status post right hip arthroplasty. Chronic appearing T8-T12 compression fractures. Degenerative changes in the spine. No abdominal aortic aneurysm. IMPRESSION: Small bowel obstruction with transition point in the right lower quadrant. Severe left and mild right hydronephrosis and bilateral ureterectasis without visible obstruction. Possible cystitis. Nonemergent/incidental findings above. This document has been electronically signed by: Gerardo North MD on 04/24/2025 03:50:37
[2025-04-23 18:03] VITALS: BP 156/78; PULSE 84; O2SAT 98; BMI 35.5
[2025-04-23 18:06] VITALS: BP 145/56; PULSE 68; RESP 20; TEMP 37.1; O2SAT 97
--- NOTE | 2025-04-23 18:27 | ECG_ITS ---
Test Reason : abd pain Blood Pressure : */* mmHG Vent. Rate : 60 BPM Atrial Rate : 60 BPM P-R Int : 130 ms QRS Dur : 88 ms QT Int : 436 ms P-R-T Axes : 31 -17 18 degrees QTcB Int : 436 ms Normal sinus rhythm Minimal voltage criteria for LVH, may be normal variant ( R in aVL ) Cannot rule out Anterior infarct , age undetermined Abnormal ECG When compared with ECG of 16-Dec-2024 12:57, No significant change was found Referred By: Humble Hilton Electronically Signed By: STEPHANE RHODES
--- NOTE | 2025-04-23 18:30 | ED.GENADULT ---
HPI - General Adult General Chief complaint: Abdominal Pain Stated complaint: Upper Ab pain vomiting every hr Zofran not working Time Seen by Provider: 04/23/25 17:58 Source: patient Mode of arrival: ambulatory Limitations: no limitations History of Present Illness ED Provider: Humble Hilton HPI narrative: 55 yold female with pmh of gastritis presents to the ED for epigastric abdominal pain describes as sharp and acid burning. patient denies any recent trauma to area, fever, or chills. Related Data Home Medications ?Medication ?Instructions ?Recorded ?Confirmed cetirizine 10 mg tablet (Zyrtec) 10 mg PO DAILY PRN allergies 07/06/20 04/24/25 clonazepam 1 mg tablet (Klonopin) 1 mg PO BID PRN Anxiety 07/06/20 04/24/25 montelukast 10 mg tablet 10 mg PO BEDTIME 07/06/20 04/24/25 (Singulair) cyclosporine 0.05 % eye drops in a 1 drp ophthalmic (eye) Q12H 01/06/21 04/24/25 dropperette (Restasis) epinephrine 0.3 mg/0.3 mL 0.3 mg IM ONCE PRN anaphylaxis 09/18/22 04/24/25 injection, auto-injector bimatoprost 0.01 % eye drops 1 drp ophthalmic (eye) BEDTIME 03/26/23 04/24/25 (Lumigan) omalizumab 150 mg subcutaneous 150 mg subcut Q4W 05/02/23 04/24/25 solution (Xolair) docusate sodium 100 mg capsule 100 mg PO BID PRN Constipation 08/27/23 04/24/25 mometasone 100 mcg/actuation HFA 1 puff inhalation BID PRN breathing 08/27/23 04/24/25 aerosol inhaler (Asmanex HFA) cholecalciferol (vitamin D3) 50 50 mcg PO DAILY 11/12/23 04/24/25 mcg (2,000 unit) capsule bupropion HCl 300 mg 24 hr tablet, 300 mg PO DAILY 10/07/24 04/24/25 extended release dorzolamide-timolol (PF) 2 %-0.5 % 1 drp ophthalmic (eye) BID 10/07/24 04/24/25 eye drops in a dropperette (Cosopt (PF)) brimonidine 0.2 % eye drops 1 drp ophthalmic (eye) BID 04/24/25 04/24/25 ketotifen fumarate 0.025 % (0.035 1 - 2 drp ophthalmic (eye) BID 04/24/25 04/24/25 %) eye drops [id number] 1 cap PO DAILY@0800 04/24/25 04/24/25 36,000-114,000-180,000 unit capsule,delay rel (Creon) magnesium glycinate 100 mg PO BEDTIME 04/24/25 04/24/25 naproxen sodium 220 mg tablet 220 mg PO BID PRN Pain 04/24/25 04/24/25 (Aleve) pantoprazole 40 mg tablet,delayed 40 mg PO DAILY@0630 04/24/25 04/24/25 release Previous Rx's ?Medication ?Instructions ?Recorded zolpidem 10 mg tablet (Ambien) 10 mg PO BEDTIME PRN Insomnia 30 12/28/21 days #30 tabs SHOWER CHAIR #1 ea 01/23/23 walker #1 ea 08/02/23 ondansetron 4 mg disintegrating 4 mg PO Q8H PRN Nausea #20 tabs 01/11/24 tablet fluticasone propionate 50 1 spray intranasal DAILY PRN 05/26/24 mcg/actuation nasal Congestion #16 grams spray,suspension gabapentin 800 mg tablet 800 mg PO Q8H 30 days #90 tabs 05/29/24 naloxone 4 mg/actuation nasal 4 mg intranasal Q2M PRN opioid 06/18/24 spray (Narcan) overdose #2 ea cyanocobalamin (vitamin B-12) 1,000 mcg PO DAILY #90 tabs 10/07/24 1,000 mcg tablet,extended release riboflavin (vitamin B2) 400 mg 400 mg PO DAILY 90 days #90 tabs 11/07/24 tablet albuterol sulfate 90 mcg/actuation 2 puff inhalation Q4-6H PRN 11/16/24 aerosol inhaler Shortness Of Breath Or Wheezing #8.5 grams tramadol 50 mg tablet 50 mg PO TID 90 days #270 tabs 12/17/24 rimegepant 75 mg disintegrating 75 mg PO ONCE PRN migraine 01/23/25 tablet (Nurtec ODT) headache 30 days #16 tabs baclofen 20 mg tablet 20 mg PO BID 30 days #60 tabs 02/20/25 famotidine 20 mg tablet 20 mg PO BEDTIME for heartburn #90 03/05/25 tabs atorvastatin 20 mg tablet 20 mg PO DAILY #90 tabs 04/17/25 cephalexin 500 mg capsule 500 mg PO QID 7 days #28 caps 04/24/25 Allergies Allergy/AdvReac Type Severity Reaction Status Date / Time hazelnut Allergy Severe Itching, Verified 04/23/25 18:05 coughing, and hives Penicillins (PENICILLINS) Allergy Severe HIVES Verified 04/23/25 18:05 birch Allergy Intermediate Itching Verified 04/23/25 18:05 Iodinated Contrast Media (IV Allergy Intermediate HIVES Verified 04/23/25 18:05 CONTRAST) peanut (PEANUTS) Allergy Intermediate HIVES Verified 04/23/25 18:05 shellfish derived (SHELLFISH Allergy Intermediate HIVES Verified 04/23/25 18:05 DERIVED) almond Allergy Mild Hives Verified 04/23/25 18:05 cat dander Allergy Mild cough/hives Verified 04/23/25 18:05 dog dander Allergy Mild cough/hives Verified 04/23/25 18:05 pollen extracts Allergy Mild runny Verified 04/23/25 18:05 nose, itchy eyes Review of Systems Review of Systems: epigastric abdominal pain Yes all other systems are reviewed and are negative PMFSH Past Medical History Medical History Renal calculi Insomnia Osteoarthritis of multiple joints Hydronephrosis, bilateral Osteopenia Sacroiliac joint pain Encounter for medication monitoring Palpitations Gastritis Fibromyalgia Hx of small bowel obstruction Abdominal pain Obesity (BMI 30-39.9) Bipolar depression Vitamin D deficiency Migraine Allergic rhinitis Mild intermittent asthma without complication Pure hypercholesterolemia Primary osteoarthritis of right hip Surgical History S/P ureteral stent placement History of total hip arthroplasty (~08/15/23) S/P cystourethroscopy with dilation of urethral stricture (~07/21/20) History of esophagogastroduodenoscopy (EGD) Hx of unilateral oophorectomy Hx of colonoscopy Hx of cholecystectomy Hx of cystoscopy History of extraction of renal calculus History of carpal tunnel surgery History of hand surgery History of hysterectomy Family History Family History Father Kidney problem Diabetes Mother Kidney malignancy Diabetes Brother Asthma Diabetes Social History Social History Household Members: Significant Other Housing: House Are you a primary critical care registered nurse to a significant other at home: No Do you presently have visiting nurse or other home services: Yes Unable to assess alcohol history related to: Unknown Alcohol intake: never Comment: counts correct Patient Tobacco Use Status: Never used Tobacco e-Cigarette/Vaping Use: Never Used Second Hand Smoke Exposure: No Advance Directives Date on File: 08/08/23 service: No Current occupational status: disabled Cognitive needs: No Hearing needs: No Vision needs: Yes Physical Exam ED Vital Signs: Vital Signs - 24 hr 04/23/25 18:06 04/23/25 20:32 04/24/25 00:06 Temperature 98.8 F 98.7 F 98.9 F Pulse Rate 68 66 81 Respiratory Rate 20 18 16 Blood Pressure 145/56 H 132/47 L 141/76 H Pulse Oximetry 97 96 96 Oxygen Delivery Method Room Air Room Air Room Air 04/24/25 02:59 Temperature Pulse Rate 84 Respiratory Rate 16 Blood Pressure 155/66 H Pulse Oximetry 96 Oxygen Delivery Method Room Air BMI result Body Mass Index 35.5 Const General: cooperative, healthy appearing, comfortable and no acute distress Orientation/consciousness: patient oriented x3 HENMT Head: Yes normal to inspection, Yes No palpable skull fracture present, Yes normocephalic and Yes atraumatic Eyes General: appearance normal, both eyes and all related structures Neck Neck: Yes normal visual inspection, Yes full ROM, Yes no lymphadenopathy, Yes no meningeal signs, Yes trachea midline, Yes supple, No anterior neck swelling and No tender Chest Chest palpation & inspection: normal inspection of the chest and normal palpation of entire chest wall Resp Effort & Inspection: normal respiratory effort and able to speak in complete sentences Auscultation: clear to auscultation bilaterally Cardio Jugular venous distension: no JVD Heart sounds: S1 normal heart sound present and S2 normal heart sound present GI Inspection: Yes normal to inspection Palpation (GI): Soft to palpation, not firm, Tenderness to palpation present (GI) in the epigastrum, no guarding and not rigid General: Yes no CVA tenderness Back/Spine/Pelvis Back: no CVA tenderness and No back tenderness Skin General skin exam: no rashes or lesions noted, elasticity normal and turgor normal Neuro General: patient oriented x3, gait normal, tone normal, moves all extremities, Normal light touch and pain sensation, no meningeal signs, no focal motor deficits, CN's II-XI intact bilaterally and normal sensation to monofilament Extrem General: Yes normal to inspection, Yes full ROM and Yes capillary refill normal Psych Appearance: grossly normal, well kempt and not disheveled Course Reevaluation(s) Reevaluation #1: I Tanika Goodwin PA-C have accepted care of the patient and signed out pending imaging and final disposition The patient is a 55-year-old female with a history of prior postoperative adhesion, prior bowel obstruction that was medically managed in 2023, obesity, GERD, gastritis status post EGD, kidney stones status post cystourethroscopy with dilation of urethral stricture July of 2020, hyperlipidemia, asthma, migraine, bipolar disorder, depression, chronic pain, fibromyalgia, osteoarthritis who presents with upper abdominal pain since this morning. Associated nausea vomiting, and abdominal distention. CT abdomen and pelvis:FINDINGS: Detail limited by artifacts. Small hiatal hernia. Diffusely hypodense liver consistent with hepatic steatosis. Normal spleen. Severe left and mild right hydronephrosis. Bilateral ureterectasis. No visible ureteral calculi. Nonobstructing bilateral renal calculi. Normal adrenal glands. Normal pancreas. Status post cholecystectomy. No abnormal biliary dilation. Air-fluid levels in dilated small bowel loops measuring up to 3.1 cm in diameter. There is a transition point in the right lower quadrant. No mucosal thickening or pneumatosis. Normal appendix. Mild diffuse bladder wall thickening. Status post hysterectomy. No ascites. No pneumoperitoneum. No lymphadenopathy. No acute fracture. Status post right hip arthroplasty. Chronic appearing T8-T12 compression fractures. Degenerative changes in the spine. No abdominal aortic aneurysm. IMPRESSION: Small bowel obstruction with transition point in the right lower quadrant. Severe left and mild right hydronephrosis and bilateral ureterectasis without visible obstruction. Possible cystitis. Nonemergent/incidental findings above. We will be placing a NG tube and calling surgery for consult. Reevaluation #2: Escalation of care including admission/observation considered , the patient is being held pending surgical consult which will occur within the next few hours. The patient is willing to have the NG-tube placement attempted, we will premedicate with morphine and Versed. Time: 04:38 Consultations Consultation #1: Per Dr. Truong...... he will round on the patient 1st thing this morning, he is in agreement with the NG-tube placement. At this time the patient is refusing, we will attempt to medicate and placed a tube. I tried to admit the patient to the medical service, they are declining, they feel the surgical service should admit the patient, unless they feel the patient can be medically managed for her bowel obstruction. The patient will stay in the emergency room until Dr. rTuong can fully assess patient, as phys obs Time: 03:55 Consultation #2: Dr. Truong to admit patient CELE[place] 703am 04/24/25 Medications Administered Discontinued Medications Generic Name Dose Route Start Last Admin Trade Name Freq PRN Reason Stop Dose Admin Baclofen 20 mg 04/24/25 21:00 04/25/25 07:38 Baclofen 20 Mg Tablet PO 20 mg BID MADELEINE Administration Belladonna Alkaloids/Phenobarbital 10 ml 04/23/25 18:27 04/23/25 18:49 Phenobarb/Hyoscy/Atropine/Scop 10 Ml Elixir PO 04/23/25 18:28 10 ml ONCE ONE Administration Brimonidine Tartrate 1 drop 04/24/25 21:00 04/25/25 07:40 Brimonidine Tartrate 0.2% Oph 5 Ml Bottle EYE-BOTH 1 drop BID MADELEINE Administration Bupropion HCl 150 mg 04/24/25 09:00 04/24/25 08:01 Bupropion Hcl Xl 150 Mg Tab.Er.24h PO 150 mg DAILY MADELEINE Administration Bupropion HCl 300 mg 04/25/25 09:00 04/25/25 07:38 Bupropion Hcl Xl 300 Mg Tab.Er.24h PO 300 mg DAILY MADELEINE Administration Ceftriaxone Sodium 500 mg 04/24/25 00:02 04/24/25 01:18 Ceftriaxone Sodium 500 Mg Vial IM 04/24/25 00:03 500 mg ONCE ONE Administration Ceftriaxone Sodium 2 gm 04/25/25 06:45 04/25/25 06:16 Ceftriaxone Sodium 2 Gm Vial IVPUSH 2 gm Q24H MADELEINE Administration Clonazepam 1 mg 04/24/25 15:34 04/24/25 20:22 Clonazepam 1 Mg Tablet PO 1 mg BID PRN Administration Anxiety Diphenhydramine HCl 50 mg 04/23/25 23:30 04/23/25 23:58 Diphenhydramine Hcl 50 Mg/Ml Vial IVPUSH 04/23/25 23:31 50 mg ONCE ONE Administration Famotidine 20 mg 04/23/25 18:27 04/23/25 18:49 Famotidine/Pf 20 Mg/2 Ml Vial IVPUSH 04/23/25 18:28 20 mg ONCE ONE Administration Famotidine 20 mg 04/24/25 21:00 04/24/25 20:22 Famotidine 20 Mg Tablet PO 20 mg BEDTIME MADELEINE Administration Gabapentin 800 mg 04/24/25 08:00 04/25/25 07:38 Gabapentin 400 Mg Capsule PO 800 mg Q8H MADELEINE Administration Heparin Sodium (Porcine) 5,000 unit 04/25/25 10:00 04/25/25 09:17 Heparin Sodium,Porcine 5,000 Unit/Ml Vial SUBCUT 5,000 unit Q8H MADELENIE Administration Hydromorphone HCl 1 mg 04/23/25 23:45 04/24/25 01:10 Hydromorphone Hcl 1 Mg/Ml Syringe IVPUSH 04/23/25 23:46 Not Given ONCE ONE Protocol Sodium Chloride 1,000 mls @ 999 mls/hr 04/23/25 23:50 04/24/25 02:58 Ns IV 04/24/25 00:50 Infused .Q1H1M STA Infusion Sodium Chloride 1,000 mls @ 999 mls/hr 04/23/25 23:50 04/24/25 02:58 Ns IV 04/24/25 00:50 Infused .Q1H1M STA Infusion Lactated Ringer's 1,000 mls @ 100 mls/hr 04/24/25 07:30 04/25/25 14:51 Lr IVCONT Not Given .Q10H MADELEINE Ketotifen Fumarate 1 drop 04/24/25 21:00 04/25/25 07:40 Ketotifen Fumarate 0.025% Oph 5 Ml Drpbtl EYE-BOTH 1 drop BID MADELEINE Administration Lidocaine HCl 15 ml 04/23/25 18:27 04/23/25 18:49 Lidocaine Hcl Viscous 2 % 15 Ml Solution MUCOUS MEM 04/23/25 18:28 15 ml ONCE ONE Administration Midazolam HCl 3 mg 04/24/25 04:49 04/24/25 04:58 Midazolam Hcl 2 Mg/2 Ml Vial IVPUSH 04/24/25 04:50 3 mg ONCE ONE Administration Montelukast Sodium 10 mg 04/24/25 09:00 04/25/25 07:38 Montelukast Sodium 10 Mg Tablet PO 10 mg DAILY MADELEINE Administration Morphine Sulfate 4 mg 04/23/25 20:21 04/23/25 20:30 Morphine Sulfate 4 Mg/Ml Cartridge IVPUSH 04/23/25 20:22 4 mg ONCE ONE Administration Protocol Morphine Sulfate 4 mg 04/23/25 23:18 04/23/25 23:59 Morphine Sulfate 4 Mg/Ml Cartridge IVPUSH 04/23/25 23:19 4 mg ONCE ONE Administration Protocol Morphine Sulfate 4 mg 04/24/25 04:49 04/24/25 04:57 Morphine Sulfate 4 Mg/Ml Cartridge IVPUSH 04/24/25 04:50 4 mg ONCE ONE Administration Protocol Omeprazole 40 mg 04/24/25 07:45 04/25/25 06:16 Omeprazole 40 Mg Capsule.Dr PO 40 mg DAILY@0630 [facility] Administration Ondansetron HCl 4 mg 04/23/25 18:31 04/23/25 18:49 Ondansetron Hcl 4 Mg/2 Ml Vial IVPUSH 04/23/25 18:32 4 mg ONCE ONE Administration Propranolol HCl 60 mg 04/24/25 09:00 04/24/25 08:00 Propranolol Hcl 20 Mg Tablet PO 60 mg DAILY MADELEINE Administration Protocol Sodium Chloride 3 ml 04/24/25 08:00 04/25/25 07:40 0.9 % Sodium Chloride Flush 3 Ml Syringe IVFLUSH 3 ml QSHIFT [facility] Administration Sumatriptan Succinate 100 mg 04/24/25 09:00 04/24/25 08:02 Sumatriptan Succinate 100 Mg Tablet PO Not Given DAILY [facility] Zolpidem Tartrate 5 mg 04/24/25 15:34 04/25/25 00:15 Zolpidem Tartrate 5 Mg Tablet PO 5 mg BEDTIME PRN Administration Insomnia Medical Decision Making Medical Decision Making MDM Narrative: 55-year-old female history gastritis and cholecystectomy presents to the ED for upper abdominal pain, it is described as sharp as burning. No relief with Pepcid. Labs fluids EKG ordered Pepcid ordered meds ordered. RME: 12:01am: Patient is still in pain given more morphine Benadryl and Dilaudid. UA shows blood in the urine. UTI. CT scan pending. Signed out to NICOLETTE Rapp. Differential Diagnosis Differential Diagnoses: The differential diagnosis associated with the presentation includes (Pancreatitis, kidney stones, gastritis) Admission/Observation Consideration of admission/observation: Escalation of care including admission/observation considered Lab Data [facility] Lab Attestation statement: I reviewed the patient's lab results. 04/25/25 09:37 04/25/25 09:37 Labs: Lab Results 04/23/25 04/23/25 04/24/25 Range/Units 19:50 21:10 00:12 WBC 14.1 H (4.8-10.8) X10*3/uL RBC 4.61 (4.20-5.50) X10*6/uL Hgb 12.7 (12.0-16.0) g/dl Hct 38.6 (37.0-47.0) % MCV 83.7 (80.0-98.0) fL MCH 27.5 (27.0-33.0) pg MCHC 32.9 (31.0-35.0) g/dl RDW 14.5 (11.0-16.0) % Plt Count 364 (160-400) X10*3/uL MPV 10.4 (9.4-12.3) fL Immature Gran % (Auto) 0.4 (0.0-0.4) % Neut % (Auto) 89.5 H (45-73) % Lymph % (Auto) 6.6 L (20-40) % [place] % (Auto) 3.1 (2-11) % Eos % (Auto) 0.0 (0-4) % Baso % (Auto) 0.4 (0-2) % Lymph # (Auto) 0.9 L (1.2-4.9) X10*3/uL [place] # (Auto) 0.4 (0.1-1.2) X10*3/uL Eos # (Auto) 0.0 (0.0-0.4) X10*3/uL Baso # (Auto) 0.1 (0.0-0.2) X10*3/uL Abs Immat Gran (auto) 0.05 H (0.00-0.03) X10*3/uL Absolute Neuts (auto) 12.6 H (2.0-8.3) x10*3/uL Absolute Nucleated RBC 0.000 (0.0-0.012) X10*3/uL Nucleated RBC % (auto) 0.0 (0.0-0.2) /100WBC PT 11.4 (10.9-12.4) SEC INR 1.0 (0.9-1.1) APTT 27.1 (26.7-34.1) SEC Sodium 142 (135-145) mmol/L Potassium 3.7 (3.3-5.1) mmol/L Chloride 111 H (96-108) mmol/L Carbon Dioxide 23 (22-29) mmol/L Anion Gap 12 (12-20) BUN 12 (9-16) mg/dL Creatinine 0.67 (0.5-1.4) mg/dL Estim Creat Clear Calc 91.4 Estimated GFR > 60 Random Glucose 124 H (60-115) mg/dL Lactic Acid (0.5-2.0) mmol/L Calcium 9.5 (8.4-10.2) mg/dL Total Bilirubin 0.8 (0.0-1.0) mg/dL AST 18 (5-31) U/L ALT 15 (0-31) U/L Alkaline Phosphatase 92 (39-117) U/L Troponin I High Sens < 2.7 < 2.7 (<3.5-17.0) ng/L Total Protein 8.0 (6.5-8.0) g/dL Albumin 4.7 (3.5-5.0) g/dL Lipase 35 (8-78) U/L Beta HCG, Quant < 2 mIU/mL Urine Color Dark Yellow Urine Appearance Clear Urine pH 6.5 (5.0-9.0) Ur Specific [place] 1.020 (1.005-1.025) Urine Protein 30 (1+) H (Neg-Trace) mg/dL Urine Glucose (UA) Negative (Negative) mg/dL Urine Ketones 40 (Negative) mg/dL Urine Blood Small (1+) H (Negative) Urine Nitrite Negative (Negative) Ur Leukocyte Esterase Moderate (2+) H (Negative) Urine RBC 11-20 H (0-2) /HPF Urine WBC 21-50 H (0-5) /HPF Ur Squamous Epith Cells 0-2 (0-2) /HPF Urine Bacteria Trace (None Seen) Hyaline Casts 3-5 (0-2) /LPF 04/24/25 Range/Units 01:04 WBC (4.8-10.8) X10*3/uL RBC (4.20-5.50) X10*6/uL Hgb (12.0-16.0) g/dl Hct (37.0-47.0) % MCV (80.0-98.0) fL MCH (27.0-33.0) pg MCHC (31.0-35.0) g/dl RDW (11.0-16.0) % Plt Count (160-400) X10*3/uL MPV (9.4-12.3) fL Immature Gran % (Auto) (0.0-0.4) % Neut % (Auto) (45-73) % Lymph % (Auto) (20-40) % [place] % (Auto) (2-11) % Eos % (Auto) (0-4) % Baso % (Auto) (0-2) % Lymph # (Auto) (1.2-4.9) X10*3/uL [place] # (Auto) (0.1-1.2) X10*3/uL Eos # (Auto) (0.0-0.4) X10*3/uL Baso # (Auto) (0.0-0.2) X10*3/uL Abs Immat Gran (auto) (0.00-0.03) X10*3/uL Absolute Neuts (auto) (2.0-8.3) x10*3/uL Absolute Nucleated RBC (0.0-0.012) X10*3/uL Nucleated RBC % (auto) (0.0-0.2) /100WBC PT (10.9-12.4) SEC INR (0.9-1.1) APTT (26.7-34.1) SEC Sodium (135-145) mmol/L Potassium (3.3-5.1) mmol/L Chloride (96-108) mmol/L Carbon Dioxide (22-29) mmol/L Anion Gap (12-20) BUN (9-16) mg/dL Creatinine (0.5-1.4) mg/dL Estim Creat Clear Calc Estimated GFR Random Glucose (60-115) mg/dL Lactic Acid 1.0 (0.5-2.0) mmol/L Calcium (8.4-10.2) mg/dL Total Bilirubin (0.0-1.0) mg/dL AST (5-31) U/L ALT (0-31) U/L Alkaline Phosphatase (39-117) U/L Troponin I High Sens (<3.5-17.0) ng/L Total Protein (6.5-8.0) g/dL Albumin (3.5-5.0) g/dL Lipase (8-78) U/L Beta HCG, Quant mIU/mL Urine Color Urine Appearance Urine pH (5.0-9.0) Ur Specific [place] (1.005-1.025) Urine Protein (Neg-Trace) mg/dL Urine Glucose (UA) (Negative) mg/dL Urine Ketones (Negative) mg/dL Urine Blood (Negative) Urine Nitrite (Negative) Ur Leukocyte Esterase (Negative) Urine RBC (0-2) /HPF Urine WBC (0-5) /HPF Ur Squamous Epith Cells (0-2) /HPF Urine Bacteria (None Seen) Hyaline Casts (0-2) /LPF Independent Interpretation I performed an independent interpretation of an: CT Scan Radiology Impression Discussion of test interpretation with radiology: I have reviewed the radiologist's reading. Discharge Plan Discharge Clinical Impression: Gastritis, UTI (urinary tract infection), Small bowel obstruction Patient Disposition: Admitted As Inpatient Interventions: Admission Worksheet (ED) Last Done: 04/24/25 09:13 Discharge Date/Time: 04/24/25 10:29
[2025-04-23] MEDS: PHENobarb/Hyoscy/Atropine/Scop 10 ML ELIXIR PO (18:49)
[2025-04-23] MEDS: Lidocaine HCl Viscous 2 % 15 ML SOLUTION MUCOUS MEM (18:49)
--- OUTSIDE RECORDS SUMMARY | 2025-04-23 19:15 | XMS_ITS | Clinical Summary ---
Author Organization [facility] Address [address] [place] [address] Phone Care Team Providers Care Electronic Integrated Systems Mechanic Name Role Phone hCrist Silva MD Primary Care Provider [phone] Allergies No known active allergies Encounters Date Type Department Care Team Description 01/30/2025 Lab Requisition [facility] - Main Lab [address] [facility] [place] [address] Ajay Leonard PA Urinary tract [...] Final Result [facility] [address] [place] [address], [place] [phone] * LEROY SCREENING DIGITAL (12/20/2020 7:17 PM EDT) Anatomical Region Laterality Modality Mammography 12/20/2020 2:13 PM EDT Narrative 12/20/2020 7:17 PM EDT [facility] Diagnostic Imaging Department [address] [place] [id number] Patient: ELISHA MILLS /Age/Sex: 1970 - 50 - F Unit#: [id number] Location/Status: SPDIMA/REG CLI Mnemonic/Ordering Site: [facility] Ordering Physician: CHRIST SILVA MD [facility] Screening Digital - 12/20/20 - 1508 History: Bilateral breast cancer screening. Technique: Digital mammography. Conventional CC and MLO projections with tomosynthesis MLO views and computer aided detection Findings: Comparison:[facility] 08/21/2019, dating back to 03/09/2011. Breast tissue is mostly fatty replaced (category a density) bilaterally (as calculated by [employer] software). There are benign calcifications on the right. There is no suspicious group of microcalcification, no suspicious mass, architectural distortion or suspicious asymmetry. Impression: No evidence of malignancy. BIRADS category 2, benign findings, 3342F [id number], [id number] Note: Patient information entered into a reminder system with a target due date for the next mammogram; PQRI II 3684I Dictating Physician: MIKEY ROMAN MD Electronically Signed by: MIKEY ROMAN MD Dic Date/Time: 12/20/201916 Sign date/Time: 12/20/201916 Procedure Note Mikey Roman MD - 07/25/2022 [facility] Diagnostic Imaging Department [address] [place] [id number] Patient: ELISHA MILLS /Age/Sex: 1970 - 50 - F Unit#: [id number] Location/Status: [facility] CLI Mnemonic/Ordering Site: [facility] Ordering Physician: CHRIST SILVA MD [facility] Screening Digital - 12/20/20 - 1508 History: Bilateral breast cancer screening. Technique: Digital mammography. Conventional CC and MLO projections with tomosynthesis MLO views and computer aided detection Findings: Comparison:[facility] 08/21/2019, dating back to 03/09/2011. Breast tissue is mostly fatty replaced (category a density) bilaterally(as calculated by [employer] software). There are benign calcificationson the right. There is no suspicious group of microcalcification, no suspiciousmass, architectural distortion or suspicious asymmetry. Impression: No evidence of malignancy. BIRADS category 2, benign findings, 3342F [id number], [id number] Note: Patient information entered into a reminder system with a targetdue date for the next mammogram; PQRI II 2632O Dictating Physician: MIKEY ROMAN MD Electronically Signed by: MIKEY ROMAN MD Dic Date/Time: 12/20/201916 Sign date/Time: 12/20/201916 Christ Silva MD IMG BI PROCEDURES Final Resu lt from Last 3 Months or Most Recently Relevant to Health Maintenance Insurance [facility] MEDICAID - [place] Care Teams Electronic Integrated Systems Mechanic Relationship Specialty Start Date End Date Christ Silva MD [address] [place] [address] [address] [place], [place] PCP - General Internal Medicine 07/01/24
--- OUTSIDE RECORDS SUMMARY | 2025-04-23 19:15 | XMS_ITS | Encounter Summary ---
Author Organization [facility] Address [address] [place] [address] Care Team Providers Care Division Superintendent Name Role Phone Christ Goodwin MD Primary Care Provider [phone] Encounter Details Date Type Department Care Team (Late st Contact Info) Description 01/30/2025 Lab Requisition [facility] - Main Lab [address] [facility] [place] [address] Ajay Leonard PA [address] [place] [address] Urinary tract infection, site not [...] No growth 01/31/2025 12:44 PM EDT [facility] ([facility]) [facility] Urine Urine specimen obtained by clean catch procedure / Unknown 01/30/2025 01/30/2025 5:39 PM EDT us [facility] MICROBIOLOGY - GENERAL ORD ERABLES Final Result [facility] ([facility]) H[facility] LAB [address] [place] [address], documented in this encounter Visit Diagnoses Diagnosis Urinary tract infection, site not specified documented in this encounter Care Teams Division Superintendent Relationship Specialty Start Date End Date Christ Goodwin MD [address] [place] [address] Dr [address] [place] PCP - General Internal Medicine 07/01/24 documented as of this encounter
--- OUTSIDE RECORDS SUMMARY | 2025-04-23 19:15 | XMS_ITS | Clinical Summary ---
Author Organization [facility] Address [address] [place] [address] Care Team Providers Care Security Engineer Name Role Phone Teresa Vega PA-C Primary Care Provider [phone] Source Comments PLEASE NOTE, if this patient [...] mcg/actuation nasal sprayIndication s:Seasonal allergies Place 1 [place] into the nostril(s) once daily. 16 g [...] 10/21/2014 Nephrolithiasis 08/19/2014 Overview (02/15/2015): Follows at [facility] Urolog Lt ureteroscopy with manipulation of lt renal stone and stent placed at [facility] January 27 2015 S/P unilateral salpingo-oophorectomy. LEFT 05/05 Overview (05/22/2014): Done at [facility] on 05/05/14 History of normal mammogram 04/16/2014 History of cervical cancer 01/26/2014 Overview (01/26/2014): Seen by field account manager/onc at [facility] Sp Hysterectomy, had +nodes, received chemo and radiation On Estrogen She has persistent ovarian cyst and will undergo resection around April: explorat laparotomy, biopsy, etc Migraine headache 01/26/2014 Overview (01/26/2014): Has seen [facility] Neuro Prescribed IC NAratriptan HCL 2.5mg HLD [...] Follows with Psych: Benitez Nick MD at [address] [place] [address] On: Celexa, Ambien and Klonopin Resolved Problems [...] Plan of Treatment Not on file Insurance [place] Care Teams Security Engineer Relationship Specialty Start Date End Date Teresa Vega PA-C [address] [place] [address] PCP - General 10/01/18
[2025-04-23 19:56] LABS: MANUAL DIFF FLAG NO
[2025-04-23 19:57] LABS: Hematocrit 38.6 % (37.0-47.0); Hemoglobin 12.7 g/dl (12.0-16.0); Imm Gran Abs Auto 0.05 X10*3/uL (0.00-0.03); Imm Gran Pct Auto 0.4 % (0.0-0.4); Lymphocytes Absolute Auto 0.9 X10*3/uL (1.2-4.9); Mean Corpuscular HGB Conc 32.9 g/dl (31.0-35.0); Mean Corpuscular Hemoglobin 27.5 pg (27.0-33.0); Mean Corpuscular Volume 83.7 fL (80.0-98.0); NRBC Abs Auto 0.000 X10*3/uL (0.0-0.012); NRBC Pct Auto 0.0 /100WBC (0.0-0.2); Platelet Count 364 X10*3/uL (160-400); Red Blood Count 4.61 X10*6/uL (4.20-5.50); White Blood Count 14.1 X10*3/uL (4.8-10.8)
[2025-04-23 20:11] LABS: Alanine Aminotransferase 15 U/L (0-31); Albumin Level 4.7 g/dL (3.5-5.0); Alkaline Phosphatase 92 U/L (39-117); Anion Gap 12 (12-20); Aspartate Amino Transferase 18 U/L (5-31); Blood Urea Nitrogen 12 mg/dL (9-16); Calcium 9.5 mg/dL (8.4-10.2); Carbon Dioxide 23 mmol/L (22-29); Chloride 111 mmol/L (96-108); Creatinine Clr Calc Pharmacy 91.4; Estimated Glomerular Filt Rate > 60; Lipase 35 U/L (8-78); Potassium 3.7 mmol/L (3.3-5.1); Sodium 142 mmol/L (135-145); Total Protein 8.0 g/dL (6.5-8.0)
[2025-04-23 20:18] LABS: Troponin-I High Sensitivity < 2.7 ng/L (<3.5-17.0)
[2025-04-23 20:32] VITALS: BP 132/47; PULSE 66; RESP 18; TEMP 37.1; O2SAT 96
--- NOTE | 2025-04-23 20:36 | PC.NURSE ---
Pt medicated as per oct. VSS, provided urine cup. Call hager within reach. plan of care ongoing
[2025-04-23 21:18] LABS: Appearance Urine Clear; Glucose Urine UA Negative (Negative); PH 6.5 (5.0-9.0); Specific Gravity - Urine 1.020 (1.005-1.025); UMIC TRIGGER UACC YES
[2025-04-23 21:32] LABS: UACC Culture Trigger YES
[2025-04-23 21:34] LABS: INTERNATIONAL NORM RATIO 1.0 (0.9-1.1); Prothrombin Time 11.4 SEC (10.9-12.4)
[2025-04-23 21:36] LABS: Partial Thromboplastin Time 27.1 SEC (26.7-34.1)
[2025-04-24 00:06] VITALS: BP 141/76; PULSE 81; RESP 16; TEMP 37.2; O2SAT 96
[2025-04-24 00:45] LABS: Troponin-I High Sensitivity < 2.7 ng/L (<3.5-17.0)
--- NOTE | 2025-04-24 01:05 | PC.NURSE ---
TW did not administer Dilaudid as pt reported effectiveness with morphine and is calm/resting quietly.
[2025-04-24 02:59] VITALS: BP 155/66; PULSE 84; RESP 16; O2SAT 96
--- NOTE | 2025-04-24 04:40 | PC.NURSE ---
PT refusing NG tube placement. provider called to bedside to discuss with pt. Explained risks and noted GERD symptoms may likely alleviated by NG tube placement. Plan for pt to be pre-medicated prior to procedure.
--- NOTE | 2025-04-24 06:05 | PC.NURSE ---
PT agreeabe to NG tube placement with pre treatment medications administered for pain and anxiety. PT medicated as per [place]. 16fr NG tube placed +stomach contents noted. PT unabble to tolerate requesting TW to remove it. Provider called to bedside, and educated pt on risks. PT continuing to state she wants it removed. NG tube moved. Pt toelrated well. Plan of care ongoing
--- NOTE | 2025-04-24 07:11 | P.HPGS_ITS ---
History of Present Illness History of Present Illness Date of Service: 04/29/25 Chief complaint: Partial small bowel obstruction Narrative: Yanci Tate is a 55 year old female here because of the abdominal pain and vomiting. She says that this started 2-3 days ago with some mild abdominal pain. She had episodes of vomiting yesterday so she came to the emergency room last night She states that she has had this problem few times in the past. She states that she never had an NG-tube placed. She has had multiple abdominal surgeries. She had a hysterectomy with oophorectomy and salpingectomy for cervical cancer. She had had radiation for this as well. She says that she had her gallbladder removed. She is also being followed by GI because of a long history of alternating diarrhea, constipation as well as vomiting. She has fibromyalgia and depression. She says she actually is passing flatus. She says that the last time she vomited was last night when she 1st came to the ER.. She says she feels much better this morning. An NG-tube was inserted earlier but she pulled this out and she stated that this was causing a lot of discomfort. Review of Systems Constitutional: Constitutional: Denies chills and Denies fever(s) Cardiovascular: Cardiovascular: Denies chest pain, Denies dyspnea and Denies dyspnea on exertion Respiratory: Respiratory: Denies cough, Denies dyspnea and Denies dyspnea on exertion Gastrointestinal: Gastrointestinal: Denies hematochezia and Denies change in bowel habits Genitourinary: Genitourinary: Denies hematuria Musculoskeletal: Musculoskeletal: Reports back pain and Reports limited range of motion Neurologic: Denies focal weakness and Denies convulsions Psychiatric: Psychiatric: Denies depression and Denies mood swings [facility] Past Medical History Medical History Renal calculi Insomnia Osteoarthritis of multiple joints Hydronephrosis, bilateral Osteopenia Sacroiliac joint pain Encounter for medication monitoring Palpitations Gastritis Fibromyalgia Hx of small bowel obstruction Abdominal pain Obesity (BMI 30-39.9) Bipolar depression Vitamin D deficiency Migraine Allergic rhinitis Mild intermittent asthma without complication Pure hypercholesterolemia Primary osteoarthritis of right hip Family History Family History Father Kidney problem Diabetes Mother Kidney malignancy Diabetes Brother Asthma Diabetes Surgical History Surgical History S/P ureteral stent placement History of total hip arthroplasty (~08/15/23) S/P cystourethroscopy with dilation of urethral stricture (~07/21/20) History of esophagogastroduodenoscopy (EGD) Hx of unilateral oophorectomy Hx of colonoscopy Hx of cholecystectomy Hx of cystoscopy History of extraction of renal calculus History of carpal tunnel surgery History of hand surgery History of hysterectomy Social History Social History Household Members: Significant Other Housing: House Are you a primary caregivers non medical to a significant other at home: No Do you presently have visiting nurse or other home services: Yes Unable to assess alcohol history related to: Unknown Alcohol intake: never Comment: counts correct Patient Tobacco Use Status: Never used Tobacco e-Cigarette/Vaping Use: Never Used Second Hand Smoke Exposure: No Advance Directives Date on File: 08/08/23 service: No Current occupational status: disabled Cognitive needs: No Hearing needs: No Vision needs: Yes Meds Allergies Allergy/AdvReac Type Severity Reaction Status Date / Time hazelnut Allergy Severe Itching, Verified 04/23/25 18:05 coughing, and hives Penicillins (PENICILLINS) Allergy Severe HIVES Verified 04/23/25 18:05 birch Allergy Intermediate Itching Verified 04/23/25 18:05 Iodinated Contrast Media (IV Allergy Intermediate HIVES Verified 04/23/25 18:05 CONTRAST) peanut (PEANUTS) Allergy Intermediate HIVES Verified 04/23/25 18:05 shellfish derived (SHELLFISH Allergy Intermediate HIVES Verified 04/23/25 18:05 DERIVED) almond Allergy Mild Hives Verified 04/23/25 18:05 cat dander Allergy Mild cough/hives Verified 04/23/25 18:05 dog dander Allergy Mild cough/hives Verified 04/23/25 18:05 pollen extracts Allergy Mild runny Verified 04/23/25 18:05 nose, itchy eyes Home Medications ?Medication ?Instructions ?Recorded ?Confirmed ?Last Taken ?Type cetirizine 10 mg tablet (Zyrtec) 10 mg PO DAILY PRN jim pride 07/06/20 04/24/25 08/26/23 History clonazepam 1 mg tablet (Klonopin) 1 mg PO BID PRN Anxi ety 07/06/20 04/24/25 08/26/23 History montelukast 10 mg tablet 10 mg PO BEDTIME 07/06/2004/23/25 History (Singulair) cyclosporine 0.05 % eye drops in a 1 drp ophthalmic (e ye) Q12H 01/06/21 04/24/25 04/23/25 History dropperette (Restasis) epinephrine 0.3 mg/0.3 mL 0.3 mg IM ONCE PRN anaphylax is 09/18/22 04/24/25 08/26/23 History injection, auto-injector bimatoprost 0.01 % eye drops 1 drp ophthalmic (eye) BE DTIME 03/26/23 04/24/25 04/23/25 History (Katieigan) omalizumab 150 mg subcutaneous 150 mg subcut Q4W 05/0204/24/25 04/16/25 History solution (Xolair) docusate sodium 100 mg capsule 100 mg PO BID PRN Const ipation 08/27/23 04/24/25 04/23/25 History mometasone 100 mcg/actuation HFA 1 puff inhalation BID PRN breathing 08/27/23 04/24/25 Unknown History aerosol inhaler (Asmanex HFA) cholecalciferol (vitamin D3) 50 50 mcg PO DAILY 04/24/25 04/23/25 History mcg (2,000 unit) capsule bupropion HCl 300 mg 24 hr tablet, 300 mg PO DAILY 11/2804/24/25 04/23/25 History extended release dorzolamide-timolol (PF) 2 %-0.5 % 1 drp ophthalmic (e ye) BID 10/07/24 04/24/25 04/23/25 History eye drops in a dropperette (Cosopt (PF)) brimonidine 0.2 % eye drops 1 drp ophthalmic (eye) BID 04/24/25 04/24/25 04/23/25 History ketotifen fumarate 0.025 % (0.035 1 - 2 drp ophthalmic (eye) BID 04/24/25 04/24/25 04/23/25 History %) eye drops [id number]-[id number]-lcopblb 1 cap PO DAILY@0800 04/24/25 04/24/25 04/23/25 History 36,000-114,000-180,000 unit capsule,delay rel (Creon) magnesium glycinate 100 mg PO BEDTIME 04/24/25 0 04/24/25 04/23/25 History naproxen sodium 220 mg tablet 220 mg PO BID PRN Pain 0 04/24/25 04/24/25 Unknown History (Aleve) pantoprazole 40 mg tablet,delayed 40 mg PO DAILY@0630 04/24/25 04/24/25 04/23/25 History release Physical Exam Vital Signs: Vital Signs: Last Vital Signs Temp 98.9 F 04/24/25 00:06 Pulse 84 04/24/25 02:59 Resp 16 04/24/25 02:59 BP 155/66 H 04/24/25 02:59 Pulse Ox 96 04/24/25 02:59 O2 Del Method Room Air 04/24/25 02:59 BMI result Body Mass Index 35.5 Const: Other: Appears morbidly obese, anxious but otherwise comfortable General: comfortable and no acute distress Orientation/consciousness: patient oriented x3 Neck: Neck: Yes no lymphadenopathy Resp: Auscultation: clear to auscultation bilaterally Cardio: Rhythm: regular rhythm GI: Other: Does not appear to have significant tenderness currently Inspection: Yes distended Palpation (GI): Soft to palpation, nontender and no guarding Neuro: General: patient oriented x3 Results Results Labs: Short CBC 04/23/25 Range/Units 19:50 WBC 14.1 H (4.8-10.8) X10*3/uL Hgb 12.7 (12.0-16.0) g/dl Hct 38.6 (37.0-47.0) % Plt Count 364 (160-400) X10*3/uL BMP 04/23/25 19:50 Sodium 142 Potassium 3.7 Chloride 111 H Carbon Dioxide 23 BUN 12 Creatinine 0.67 Calcium 9.5 Liver Function 04/23/25 Range/Units 19:50 Total Bilirubin 0.8 (0.0-1.0) mg/dL AST 18 (5-31) U/L ALT 15 (0-31) U/L Alkaline Phosphatase 92 (39-117) U/L Albumin 4.7 (3.5-5.0) g/dL Urine 04/23/25 Range/Units 21:10 Urine Color Dark Yellow Urine Appearance Clear Urine pH 6.5 (5.0-9.0) Ur Specific [employer] 1.020 (1.005-1.025) Urine Protein 30 (1+) H (Neg-Trace) mg/dL Urine Glucose (UA) Negative (Negative) mg/dL Abdomen CT scan report/results: report reviewed and image reviewed CT scan - pelvis: report reviewed and image reviewed Additional studies: CT Abdomen and Pelvis WO Contrast COMPARISON: CT/SR - CT KIDNEY STONE - 02/27/25 02:41 EDT FINDINGS: Detail limited by artifacts. Small hiatal hernia. Diffusely hypodense liver consistent with hepatic steatosis. Normal spleen. Severe left and mild right hydronephrosis. Bilateral ureterectasis. No visible ureteral calculi. Nonobstructing bilateral renal calculi. Normal adrenal glands. Normal pancreas. Status post cholecystectomy. No abnormal biliary dilation. Air-fluid levels in dilated small bowel loops measuring up to 3.1 cm in diameter. There is a transition point in the right lower quadrant. No mucosal thickening or pneumatosis. Normal appendix. Mild diffuse bladder wall thickening. Status post hysterectomy. No ascites. No pneumoperitoneum. No lymphadenopathy. No acute fracture. Status post right hip arthroplasty. Chronic appearing T8-T12 compression fractures. Degenerative changes in the spine. No abdominal aortic aneurysm. IMPRESSION: Small bowel obstruction with transition point in the right lower quadrant. Severe left and mild right hydronephrosis and bilateral ureterectasis without visible obstruction. Possible cystitis. Nonemergent/incidental findings above. Assessment and Plan (1) Small bowel obstruction: Status: Acute 55 year female with obesity, fibromyalgia, bipolar disorder, migraine, here in the ER because of abdominal pain. She had a CAT scan last night showed some dilated small bowel loops in the lower abdomen and the pelvis with what appears to be a transition point on the right. This is likely secondary to postop adhesions from multiple surgeries in the past. She also has had radiation to the pelvis for cervical cancer so this may be contributory as well. She currently appears much more comfortable. She pulled out her NG tube earlier. She says she has not had any vomiting since she came to the ER last night . She will be admitted for a diagnosis of the partial small-bowel obstruction. She will be placed on bowel rest. She has a very benign exam. I explained to her that she will need to have the NG tube reinserted if she has episodes of vomiting again She appears to understand the plan well. I have discussed this with the ER staff. Quality Stroke Does the patient have a stroke diagnosis?: No VTE Prior VTE?: No VTE Risk Level:: Medical - moderate - high VTE Device Contraindication: N/A - Device Ordered VTE Drug Contraindication: N/A - Med Ordered Procedures Date of Service Date of Service: 04/29/25
[2025-04-24 07:27] VITALS: BP 121/47; PULSE 62; RESP 17; TEMP 37.1; O2SAT 95
[2025-04-24] MEDS: 0.9 % Sodium Chloride Flush 3 ML SYRINGE IVFLUSH (07:30)
[2025-04-24] MEDS: Lactated Ringers 1,000 ML 100 ML IVCONT ×2 (07:30→18:25)
--- NOTE | 2025-04-24 07:32 | PC.NURSE ---
assumed care of pt at 0645. a&ox4. vss and up to date. pt presents to the ED c/o epigastric pain w/ associated n/v x yesterday. abd/pelvis displays SBO. pt seen by Dr. Truong - plan: bowel rest at this time but if vomiting reoccurs, NG tube will need to be replaced. pt notified/aware/agreeable to plan of care. IVF infusing at 100mls/hr per MAR. pt otherwise in no apparent distress. on RA w/o difficulty. no sob/wob noted. respirations even/unlabored. partner bedside for support. plan of care ongoing. call hager placed within reach.
[2025-04-24] MEDS: buPROPion HCl XL 150 MG TAB.ER.24H PO (08:01)
--- NOTE | 2025-04-24 08:04 | PC.NURSE ---
medication administered per provider order. pt swallowed pills whole w/ water w/o difficulty.
[2025-04-24 10:44] VITALS: BMI 38.3
--- NOTE | 2025-04-24 12:07 | P.CONHOSP_ITS ---
History of Present Illness Data of Consult Service Date: 04/24/25 Requesting physician: Luis Truong Primary Care Provider: Christ Goodwin MD [facility] Reason for consult: Multiple medical problems This is a 55-year-old female who presented to the emergency department with abdominal pain. Patient reported 2-3 days of abdominal pain with associated vomiting. In the emergency department CT scan showed small-bowel obstruction with transition point. NG tube was placed but patient subsequently removed due to discomfort. She was admitted to the surgical service for further management. The hospitalists were asked to see her in consultation due to multiple medical problems. Patient reports her abdominal pain is beginning to improve. She has had no vomiting since admission. She denies any shortness of breath, chest pain. Noted to have urinalysis consistent with UTI, patient denies any dysuria, polyuria, fever. Review of Systems 2 Review of Systems: Yes all other systems are reviewed and are negative Constitutional: Constitutional: Denies chills and Denies fever(s) Cardiovascular: Cardiovascular: Denies chest pain, Denies palpitations and Denies dyspnea Respiratory: Respiratory: Denies cough and Denies dyspnea Endocrine: Endocrine: Denies palpitations [facility] Medical History Renal calculi Insomnia Osteoarthritis of multiple joints Hydronephrosis, bilateral Osteopenia Sacroiliac joint pain Encounter for medication monitoring Palpitations Gastritis Fibromyalgia Hx of small bowel obstruction Abdominal pain Obesity (BMI 30-39.9) Bipolar depression Vitamin D deficiency Migraine Allergic rhinitis Mild intermittent asthma without complication Pure hypercholesterolemia Primary osteoarthritis of right hip Family History Father Kidney problem Diabetes Mother Kidney malignancy Diabetes Brother Asthma Diabetes Surgical History S/P ureteral stent placement History of total hip arthroplasty (~08/15/23) S/P cystourethroscopy with dilation of urethral stricture (~07/21/20) History of esophagogastroduodenoscopy (EGD) Hx of unilateral oophorectomy Hx of colonoscopy Hx of cholecystectomy Hx of cystoscopy History of extraction of renal calculus History of carpal tunnel surgery History of hand surgery History of hysterectomy Social History Household Members: Significant Other Housing: House Are you a primary interior plant caretaker to a significant other at home: No Do you presently have visiting nurse or other home services: Yes Unable to assess alcohol history related to: Unknown Alcohol intake: never Comment: counts correct Patient Tobacco Use Status: Never used Tobacco Smoked in Last 30 Days: No e-Cigarette/Vaping Use: Never Used Second Hand Smoke Exposure: No Use of substances other than those prescribed or required for medical reasons: No Have you been hit, kicked, punched, or otherwise hurt by someone within the past year? If so, by whom?: No Do you feel safe in your current relationship?: Yes Is there a partner from a previous relationship who is making you feel unsafe now?: No Are you made to feel afraid or neglected: No Advance Directives: No Advance Directives Information Provided: No Advance Directives Date on File: 08/08/23 Do you have a plan to hurt others: No Plan Recently lost weight without trying: No How much weight loss: Not applicable Eating poorly because of decreased appetite: No Nutrition screen score: 0 Nutrition Risks: No Nutritional Risk Patient : No : No Poor oral hygiene: No service: No Current occupational status: disabled Cognitive needs: No Hearing needs: No Vision needs: Yes Meds Allergies Allergy/AdvReac Type Severity Reaction Status Date / Time hazelnut Allergy Severe Itching, Verified 04/23/25 18:05 coughing, and hives Penicillins (PENICILLINS) Allergy Severe HIVES Verified 04/23/25 18:05 birch Allergy Intermediate Itching Verified 04/23/25 18:05 Iodinated Contrast Media (IV Allergy Intermediate HIVES Verified 04/23/25 18:05 CONTRAST) peanut (PEANUTS) Allergy Intermediate HIVES Verified 04/23/25 18:05 shellfish derived (SHELLFISH Allergy Intermediate HIVES Verified 04/23/25 18:05 DERIVED) almond Allergy Mild Hives Verified 04/23/25 18:05 cat dander Allergy Mild cough/hives Verified 04/23/25 18:05 dog dander Allergy Mild cough/hives Verified 04/23/25 18:05 pollen extracts Allergy Mild runny Verified 04/23/25 18:05 nose, itchy eyes Active Medications: Current Medications Acetaminophen (Acetaminophen 325 Mg Tablet) 650 mg PO Q6H PRN PRN Reason: Pain, Mild 1-3,fever,headache Bupropion HCl (Bupropion Hcl Xl 150 Mg Tab.Er.24h) 150 mg PO DAILY [facility] Last Admin: 04/24/25 08:01 Dose: 150 mg Calcium Carbonate (Calcium Carbonate 750 Mg Tab.Chew) 750 mg PO Q4H PRN PRN Reason: Heartburn Ceftriaxone Sodium (Ceftriaxone Sodium 2 Gm Vial) 2 gm IVPUSH Q24H [facility] Gabapentin (Gabapentin 400 Mg Capsule) 800 mg PO Q8H [facility] Last Admin: 04/24/25 08:01 Dose: 800 mg Heparin Sodium (Porcine) (Heparin Sodium,Porcine 5,000 Unit/Ml Vial) 5,000 unit SUBCUT Q8H [facility] Lactated Ringer's (Lr) 1,000 mls @ 100 mls/hr IVCONT .Q10H [facility] Last Admin: 04/24/25 07:30 Dose: 100 mls/hr Melatonin (Melatonin 3 Mg Tablet) 6 mg PO BEDTIME PRN PRN Reason: Insomnia Montelukast Sodium (Montelukast Sodium 10 Mg Tablet) 10 mg PO DAILY [facility] Last Admin: 04/24/25 08:00 Dose: 10 mg Morphine Sulfate (Morphine Sulfate 4 Mg/Ml Cartridge) 2 mg IVPUSH Q3H PRN; Protocol PRN Reason: Pain, Severe (Pain Scale 7-10) Omeprazole (Omeprazole 40 Mg Capsule.Dr) 40 mg PO DAILY@0630 [facility] Last Admin: 04/24/25 08:00 Dose: 40 mg Ondansetron HCl (Ondansetron Hcl 4 Mg/2 Ml Vial) 4 mg IVPUSH Q6H PRN PRN Reason: nausea Propranolol HCl (Propranolol Hcl 20 Mg Tablet) 60 mg PO DAILY [facility]; Protocol Last Admin: 04/24/25 08:00 Dose: 60 mg Sodium Chloride (0.9 % Sodium Chloride Flush 3 Ml Syringe) 3 ml IVFLUSH QSHIFT [facility] Last Admin: 04/24/25 07:30 Dose: 3 ml Sumatriptan Succinate (Sumatriptan Succinate 100 Mg Tablet) 100 mg PO DAILY [facility] Last Admin: 04/24/25 08:02 Dose: Not Given Home Medications ?Medication ?Instructions ?Recorded ?Confirmed ?Last Taken ?Type cetirizine 10 mg tablet (Zyrtec) 10 mg PO DAILY PRN jim pride 07/06/20 04/24/25 08/26/23 History clonazepam 1 mg tablet (Klonopin) 1 mg PO BID PRN Anxi ety 07/06/20 04/24/25 08/26/23 History montelukast 10 mg tablet 10 mg PO BEDTIME 07/06/2004/23/25 History (Singulair) cyclosporine 0.05 % eye drops in a 1 drp ophthalmic (e ye) Q12H 01/06/21 04/24/25 04/23/25 History dropperette (Restasis) epinephrine 0.3 mg/0.3 mL 0.3 mg IM ONCE PRN anaphylax is 09/18/22 04/24/25 08/26/23 History injection, auto-injector bimatoprost 0.01 % eye drops 1 drp ophthalmic (eye) BE DTIME 03/26/23 04/24/25 04/23/25 History (Lumigan) omalizumab 150 mg subcutaneous 150 mg subcut Q4W 05/0204/24/25 04/16/25 History solution (Xolair) docusate sodium 100 mg capsule 100 mg PO BID PRN Const ipation 08/27/23 04/24/25 04/23/25 History mometasone 100 mcg/actuation HFA 1 puff inhalation BID PRN breathing 08/27/23 04/24/25 Unknown History aerosol inhaler (Asmanex HFA) cholecalciferol (vitamin D3) 50 50 mcg PO DAILY 04/24/25 04/23/25 History mcg (2,000 unit) capsule bupropion HCl 300 mg 24 hr tablet, 300 mg PO DAILY 11/2804/24/25 04/23/25 History extended release dorzolamide-timolol (PF) 2 %-0.5 % 1 drp ophthalmic (e ye) BID 10/07/24 04/24/25 04/23/25 History eye drops in a dropperette (Cosopt (PF)) brimonidine 0.2 % eye drops 1 drp ophthalmic (eye) BID 04/24/25 04/24/25 04/23/25 History ketotifen fumarate 0.025 % (0.035 1 - 2 drp ophthalmic (eye) BID 04/24/25 04/24/25 04/23/25 History %) eye drops [id number]-ccfxfuff-flitamp 1 cap PO DAILY@0800 04/24/25 04/24/25 04/23/25 History 36,000-114,000-180,000 unit capsule,delay rel (Creon) magnesium glycinate 100 mg PO BEDTIME 04/24/25 0 04/24/25 04/23/25 History naproxen sodium 220 mg tablet 220 mg PO BID PRN Pain 0 04/24/25 04/24/25 Unknown History (Aleve) pantoprazole 40 mg tablet,delayed 40 mg PO DAILY@0630 04/24/25 04/24/25 04/23/25 History release Physical Exam 2 Vital Signs and Narrative: Vital Signs: Last Vital Signs Temp 98.7 F 04/24/25 07:27 Pulse 62 04/24/25 07:27 Resp 17 04/24/25 07:27 BP 121/47 L 04/24/25 07:27 Pulse Ox 95 04/24/25 07:27 O2 Del Method Room Air 04/24/25 07:27 BMI result Body Mass Index 38.3 Const: General: cooperative, comfortable, alert and awake Nutritional Appearance: obese Orientation/consciousness: patient oriented x3 Resp: Effort & Inspection: normal respiratory effort, able to speak in complete sentences, no respiratory distress and no use of accessory muscles Cardio: Rate: regular rate GI: Inspection: No distended Palpation (GI): Soft to palpation Neuro: General: patient oriented x3, moves all extremities and CN's II-XI intact bilaterally Results Labs 04/23/25 19:50 04/23/25 19:50 Labs: Laboratory Results - last 24 hr 04/23/25 04/23/25 04/24/25 19:50 21:10 00:12 MCV 83.7 MCH 27.5 MCHC 32.9 RDW 14.5 Plt Count 364 MPV 10.4 Immature Gran % (Auto) 0.4 Neut % (Auto) 89.5 H Lymph % (Auto) 6.6 L [place] % (Auto) 3.1 Eos % (Auto) 0.0 Baso % (Auto) 0.4 Lymph # (Auto) 0.9 L [place] # (Auto) 0.4 Eos # (Auto) 0.0 Baso # (Auto) 0.1 Abs Immat Gran (auto) 0.05 H Absolute Neuts (auto) 12.6 H Absolute Nucleated RBC 0.000 Nucleated RBC % (auto) 0.0 PT 11.4 INR 1.0 APTT 27.1 Anion Gap 12 Estim Creat Clear Calc 91.4 Estimated GFR > 60 Random Glucose 124 H Lactic Acid Calcium 9.5 Total Bilirubin 0.8 AST 18 ALT 15 Alkaline Phosphatase 92 Troponin I High Sens < 2.7 < 2.7 Total Protein 8.0 Albumin 4.7 Lipase 35 Beta HCG, Quant < 2 Urine Color Dark Yellow Urine Appearance Clear Urine pH 6.5 Ur Specific [place] 1.020 Urine Protein 30 (1+) H Urine Glucose (UA) Negative Urine Ketones 40 Urine Blood Small (1+) H Urine Nitrite Negative Ur Leukocyte Esterase Moderate (2+) H Urine RBC 11-20 H Urine WBC 21-50 H Ur Squamous Epith Cells 0-2 Urine Bacteria Trace Hyaline Casts 3-5 04/24/25 01:04 MCV MCH MCHC RDW Plt Count MPV Immature Gran % (Auto) Neut % (Auto) Lymph % (Auto) [place] % (Auto) Eos % (Auto) Baso % (Auto) Lymph # (Auto) [place] # (Auto) Eos # (Auto) Baso # (Auto) Abs Immat Gran (auto) Absolute Neuts (auto) Absolute Nucleated RBC Nucleated RBC % (auto) PT INR APTT Anion Gap Estim Creat Clear Calc Estimated GFR Random Glucose Lactic Acid 1.0 Calcium Total Bilirubin AST ALT Alkaline Phosphatase Troponin I High Sens Total Protein Albumin Lipase Beta HCG, Quant Urine Color Urine Appearance Urine pH Ur Specific [place] Urine Protein Urine Glucose (UA) Urine Ketones Urine Blood Urine Nitrite Ur Leukocyte Esterase Urine RBC Urine WBC Ur Squamous Epith Cells Urine Bacteria Hyaline Casts Assessment and Plan (1) Small bowel obstruction: Status: Acute (2) UTI (urinary tract infection): Status: Acute Plan This is a 55-year-old female with history of asthma, chronic back pain, fibromyalgia, migraine, chronic hydronephrosis, history of nephrolithiasis history of multiple intra-abdominal surgeries and multiple episodes of small- bowel obstruction who presents to the emergency department with abdominal pain found to have small-bowel obstruction with transition point in admitted to the surgical service SBO management as per surgical team Hold all nonessential medications until tolerating diet. Pain management as per surgical team possible UTI Patient asymptomatic Continue IV ceftriaxone for now Preliminary urine culture thus far negative, if final culture is negative can d/c antibiotics Asthma No acute exacerbation Continue baseline inhalers Glaucoma Continue eyedrops if patient is able to bring from home Mood Continue baseline medication Thank you for allowing us to participate in the care of this patient. There are no acute medical conditions of time. will sign off at this time. If any acute issues arise please feel free to call us
--- NOTE | 2025-04-24 13:12 | PHA.MEDREC ---
Pharmacy Consult ? Medication Reconciliation Pharmacy has completed the medication reconciliation. Spoke with pt to confirm medications. Pt takes 1 tablet of magnesium 100mg (not 3 tabs), and patient only takes 1 Creon capsult a day (not TID).
[2025-04-24 14:25] VITALS: BP 118/57; PULSE 56; RESP 16; TEMP 36.3; O2SAT 96
--- NOTE | 2025-04-24 15:34 | MHC.CM.PN ---
pt has a live in special technical operations officer she has a ride home dc plan home no serviced
[2025-04-24 16:00] VITALS: BP 117/57; PULSE 56; RESP 19; TEMP 37.1; O2SAT 97
[2025-04-24 20:00] VITALS: BP 129/78; PULSE 61; RESP 20; TEMP 36.6; O2SAT 98
[2025-04-24] MEDS: Brimonidine Tartrate 0.2% Oph 5 ML BOTTLE 1 DROP EYE-BOTH (20:27)
[2025-04-24] MEDS: Ketotifen Fumarate 0.025% Oph 5 ML DRPBTL 1 DROP EYE-BOTH (20:27)
[2025-04-25 03:42] VITALS: BP 141/76; PULSE 64; RESP 16; TEMP 36; O2SAT 98
[2025-04-25] MEDS: Lactated Ringers 1,000 ML 100 ML IVCONT (04:24)
[2025-04-25 07:31] VITALS: BP 134/65; PULSE 54; RESP 16; TEMP 37; O2SAT 98
[2025-04-25] MEDS: buPROPion HCl XL 300 MG TAB.ER.24H PO (07:38)
[2025-04-25] MEDS: Brimonidine Tartrate 0.2% Oph 5 ML BOTTLE 1 DROP EYE-BOTH (07:40)
[2025-04-25] MEDS: Ketotifen Fumarate 0.025% Oph 5 ML DRPBTL 1 DROP EYE-BOTH (07:40)
[2025-04-25] MEDS: 0.9 % Sodium Chloride Flush 3 ML SYRINGE IVFLUSH (07:40)
[2025-04-25 09:54] LABS: Hematocrit 34.3 % (37.0-47.0); Hemoglobin 10.6 g/dl (12.0-16.0); Mean Corpuscular HGB Conc 30.9 g/dl (31.0-35.0); Mean Corpuscular Hemoglobin 27.5 pg (27.0-33.0); Mean Corpuscular Volume 89.1 fL (80.0-98.0); NRBC Abs Auto 0.000 X10*3/uL (0.0-0.012); NRBC Pct Auto 0.0 /100WBC (0.0-0.2); Platelet Count 179 X10*3/uL (160-400); Red Blood Count 3.85 X10*6/uL (4.20-5.50); White Blood Count 8.6 X10*3/uL (4.8-10.8)
[2025-04-25 10:27] LABS: Anion Gap 13 (12-20); Blood Urea Nitrogen 8 mg/dL (9-16); Calcium 8.5 mg/dL (8.4-10.2); Carbon Dioxide 20 mmol/L (22-29); Chloride 112 mmol/L (96-108); Creatinine Clr Calc Pharmacy 95.2; Estimated Glomerular Filt Rate > 60; Potassium 3.5 mmol/L (3.3-5.1); Sodium 141 mmol/L (135-145)
--- NOTE | 2025-04-25 14:45 | P.DS_ITS ---
DS: Providers Provider Date of Service: 04/25/25 Date of admission: 04/24/25 07:18 Date of discharge: 04/25/25 Primary care physician: Christ Goodwin MD Admitting clinician: Luis Truong Attending physician on admission: Brandi Ny Consults: 04/24/25 07:25 Consult to Hospitalist Routine Comment: Consulting Provider: [facility] Hospitalists Reason For Exam: Multiple medical problems, polypharmacy Attending physician on discharge: Brandi Ny DS: Diagnosis Discharge Diagnosis (1) Small bowel obstruction: Status: Acute (2) UTI (urinary tract infection): Status: Acute DS: Summary Hospital Course Hospital Course: The patient is a 55-year-old female who has a past history of cervical cancer and has received hysterectomy oophorectomy and radiation for this. Most likely she has adhesions and presented with nausea vomiting abdominal pain. She was admitted NG tube decompression but then pulled out her NG tube. She did well and as a result her diet was advanced. She tolerated liquids and then eventually tolerated regular diet. As a result plan is to discharge her to home follow up just in about a week for re-evaluation. She does have issues with her GI tract generally and she will benefit from following with her gastroentero logist as well. She understands and agrees with the above plan. Status at Discharge Cognitive/behavioral status at discharge: Good Functional status at discharge: independent ambulation Overall status at discharge: patient is progressing back to baseline Time Attestation Total time managing care of this patient today: 30 mintues. Discharge Coordination Time (in mins): Thirty Quality: Safe Use of Opioids Does Pt have an Active Cancer Diagnosis on the Problem List?: No Quality: Stroke Does the patient have a stroke diagnosis?: No Physical Exam Vital Signs: Vital Signs: Last Vital Signs Temp 98.6 F 04/25/25 07:31 Pulse 54 04/25/25 07:31 Resp 16 04/25/25 07:31 BP 134/65 04/25/25 07:31 Pulse Ox 98 04/25/25 07:31 O2 Del Method Room Air 04/25/25 07:31 BMI result Body Mass Index 38.3 Const: General: cooperative, healthy appearing, comfortable and no acute distress Orientation/consciousness: oriented to person, oriented to place and oriented to time Eyes: General: appearance normal, both eyes and all related structures Cardio: Rate: regular rate Rhythm: regular rhythm GI: Other: Abdomen is soft nondistended nontender active bowel sounds Skin: General skin exam: no rashes or lesions noted Neuro: General: oriented to person, oriented to place and oriented to time Cranial nerves: Yes CN's II-XII intact bilaterally Extrem: General: Yes normal to inspection Psych: Appearance: grossly normal Mental Status: mental status grossly normal Speech and movement: Normal speech and movement present Affect: normal affect Attitude: cooperative Thought process: Normal thought process present Thought content: Normal thought content present Insight: Good insight present (Psych) DS: Data Data Completed and Pending Completed studies during hospitalization [Text1]: Procedures Replacement of Right Hip Joint with Synthetic Substitute, Uncemented, Open Approach (08/15/23) Labs on day of discharge: Laboratory Results - last 24 hr 04/25/25 09:37 WBC 8.6 RBC 3.85 L Hgb 10.6 L Hct 34.3 L MCV 89.1 D MCH 27.5 MCHC 30.9 L RDW 14.6 Plt Count 179 D MPV 11.2 Absolute Nucleated RBC 0.000 Nucleated RBC % (auto) 0.0 Sodium 141 Potassium 3.5 Chloride 112 H Carbon Dioxide 20 L Anion Gap 13 BUN 8 L Creatinine 0.67 Estim Creat Clear Calc 95.2 Estimated GFR > 60 Random Glucose 129 H Calcium 8.5 D Preliminary micro results at discharge 04/24/25 01:04 Blood Culture - Preliminary Blood - Venous No growth after 24 hours. 04/24/25 00:41 Blood Culture - Preliminary Blood - Venous No growth after [address] scan - abdomen: My impression: ADM Date: 04/23/25 Loc: HO.ED Attending Dr: Ordering Physician: Humble Hilton Date of Service: 04/23/25 Procedure(s): CT abdomen pelvis wo IV con Accession Number(s): [id number] cc: Christ Goodwin MD; Humble Hilton~ Report Number: [id number]: Total DLP = 760.00 mGy-cm Reason for Exam: Abdominal pain. ADDENDUMThis document has been electronically signed by: Gerardo North MD on 04/24/2025 03:50:37 ADDENDUM: This report was discussed with KARI Avendaño on Apr 24, 2025 03:54:00 EDT. This document has been electronically signed by: Azeb Butler on 04/24/2025 03:54:25 Addendum Dictated By: Gerardo North MD Addendum Signed By: <Electronically signed by Gerardo North MD in [place]> 04/24/25354 Addendum Cosigned By: DD/ TD/TT: 04/24/25 CLINICAL HISTORY: Abdominal pain. CT Abdomen and Pelvis WO Contrast COMPARISON: CT/SR - CT KIDNEY STONE - 02/27/25 02:41 EDT FINDINGS: Detail limited by artifacts. Small hiatal hernia. Diffusely hypodense liver consistent with hepatic steatosis. Normal spleen. Severe left and mild right hydronephrosis. Bilateral ureterectasis. No visible ureteral calculi. Nonobstructing bilateral renal calculi. Normal adrenal glands. Normal pancreas. Status post cholecystectomy. No abnormal biliary dilation. Air-fluid levels in dilated small bowel loops measuring up to 3.1 cm in diameter. There is a transition point in the right lower quadrant. No mucosal thickening or pneumatosis. Normal appendix. Mild diffuse bladder wall thickening. Status post hysterectomy. No ascites. No pneumoperitoneum. No lymphadenopathy. No acute fracture. Status post right hip arthroplasty. Chronic appearing T8-T12 compression fractures. Degenerative changes in the spine. No abdominal aortic aneurysm. IMPRESSION: Small bowel obstruction with transition point in the right lower quadrant. Severe left and mild right hydronephrosis and bilateral ureterectasis without visible obstruction. Possible cystitis. Nonemergent/incidental findings above. This document has been electronically signed by: Gerardo North MD on 04/24/2025 03:50:37 Dictated By: Gerardo North MD Signed By: <Electronically signed by Gerardo North MD in [place]> 04/24/25351 DD/ 9 TD/TT: 04/24/25349 Community Development Specialist: Discharge Plan Discharge Anticipated Discharge Date/Time: 04/25/25 16:00 Patient Disposition: Home, Self-Care Discharge Diagnosis: Partial small-bowel obstruction Referrals: Christ Goodwin MD [Primary Care Provider, Internal Medicine] - 1 Week Discharge Medications: New cephalexin 500 mg capsule 500 mg PO QID 7 Days Qty: 28 0RF Continued zolpidem [Ambien] 10 mg tablet 10 mg PO BEDTIME PRN (Reason: Insomnia) 30 Days Qty: 30 0RF (DME) walker Misc See Rx Instructions .MEDSUPPLY Qty: 1 0RF Rx Instructions: Folding Front wheeled lew fluticasone propionate 50 mcg/actuation spray,suspension 1 spray intranasal DAILY PRN (Reason: Congestion) Qty: 16 1RF gabapentin 800 mg tablet 800 mg PO Q8H 30 Days Qty: 90 8RF riboflavin (vitamin B2) 400 mg tablet 400 mg PO DAILY 90 Days Qty: 90 3RF albuterol sulfate 90 mcg/actuation HFA aerosol inhaler 2 puff inhalation Q4-6H PRN (Reason: Shortness Of Breath Or Wheezing) Qty: 8.5 3RF Nurtec ODT 75 mg tablet,disintegrating 75 mg PO ONCE MDD 1 tab PRN (Reason: migraine headache) 30 Days Qty: 16 6RF Rx Instructions: PA APPROVED 01/21/25-01/21/26 baclofen 20 mg tablet 20 mg PO BID 30 Days Qty: 60 8RF famotidine 20 mg tablet 20 mg PO BEDTIME Qty: 90 2RF atorvastatin 20 mg tablet 20 mg PO DAILY Qty: 90 1RF ketotifen fumarate 0.025 % (0.035 %) drops 1 - 2 drp ophthalmic (eye) BID naproxen sodium [Aleve] 220 mg Tablet 220 mg PO BID PRN (Reason: Pain) brimonidine 0.2 % drops 1 drp ophthalmic (eye) BID pantoprazole 40 mg tablet,delayed release (DR/EC) 40 mg PO DAILY@0630 Creon 36,000-114,000- 180,000 unit capsule,delayed release(DR/EC) 1 cap PO DAILY@0800 Rx Instructions: administer with meals and/or snacks magnesium glycinate 100 mg magnesium capsule 100 mg PO BEDTIME docusate sodium 100 mg capsule 100 mg PO BID PRN (Reason: Constipation) Asmanex HFA 100 mcg/actuation HFA aerosol inhaler 1 puff inhalation BID PRN (Reason: breathing) (DME) SHOWER CHAIR See Rx Instructions .Route .MEDSUPPLY Qty: 1 0RF Rx Instructions: As directed clonazepam [Klonopin] 1 mg tablet 1 mg PO BID PRN (Reason: Anxiety) montelukast [Singulair] 10 mg tablet 10 mg PO BEDTIME cetirizine [Zyrtec] 10 mg tablet 10 mg PO DAILY PRN (Reason: allergies) Restasis 0.05 % dropperette 1 drp ophthalmic (eye) Q12H Xolair 150 mg recon soln 150 mg subcut Q4W epinephrine 0.3 mg/0.3 mL auto-injector 0.3 mg IM ONCE PRN (Reason: anaphylaxis) Lumigan 0.01 % drops 1 drp ophthalmic (eye) BEDTIME ondansetron 4 mg tablet,disintegrating 4 mg PO Q8H PRN (Reason: Nausea) Qty: 20 0RF cholecalciferol (vitamin D3) 50 mcg (2,000 unit) capsule 50 mcg PO DAILY naloxone [Narcan] 4 mg/actuation spray,non-aerosol 4 mg intranasal Q2M PRN (Reason: opioid overdose) Qty: 2 2RF Rx Instructions: spray 1 dose into ONE nostril; alternate nostrils w each dose until help arrives tramadol 50 mg tablet 50 mg PO TID 90 Days Qty: 270 1RF bupropion HCl 300 mg tablet extended release 24 hr 300 mg PO DAILY dorzolamide-timolol (PF) [Cosopt (PF)] 2-0.5 % dropperette 1 drp ophthalmic (eye) BID cyanocobalamin (vitamin B-12) 1,000 mcg tablet extended release 1,000 mcg PO DAILY Qty: 90 3RF Discharge Orders: Discharge Order (Routine); Ordered 04/25/25 Ordered By: Brandi Ny Diet: Advance to usual diet Activity on Discharge: As tolerated Stand Alone Forms: Patient Portal Discharge page Print Language: [place] Activity Restrictions/Additional Instructions: Recommend follow-up with primary care provider. Return to the ED immediately for any chest pain, shortness of breath, abdominal pain, hematuria, dysuria, fever, chills, flank pain, or any other concerning symptoms. Continue taking tramadol for pain Care Plan Goals: Returned to baseline Health Concerns: Small bowel obstruction with previous surgeries and pelvic radiation Plan of Treatment: Follow up with primary care Assessment: Doing well Patient Instructions: Gastritis (ED), Urinary Tract Infection in Women (ED)
== END 2025-04-25 15:19 | disposition home or self-care (01) | DRG 247 ==
LOC: HO.ED 04-24 07:03 → HO.EDOVER 04-24 07:50 → HO.S3 04-24 09:52
PROVIDERS: Physician Assistant; Admitting Provider Surgery; Emergency Provider Emergency Medicine; PCP Internal Medicine; Visit Provider Surgery
DX: K56.51 Intestinal adhesions [bands], with partial obstruction (principal); K76.0 Fatty (change of) liver, not elsewhere classified; N13.6 Pyonephrosis; F39 Unspecified mood [affective] disorder; Z85.41 Personal history of malignant neoplasm of cervix uteri; H40.9 Unspecified glaucoma; J45.909 Unspecified asthma, uncomplicated; Z90.49 Acquired absence of other specified parts of digestive tract; Z79.899 Other long term (current) drug therapy
CPT/HCPCS: 36415; 74176; 80048; 80053; 81001; 83605; 83690; 84484; 84702; 85025; 85027; 85610; 85730; 87040; 87086; 93005; 99221; 99285; J0696; J1200; J1308; J1644; J2250; J2270; J2405; J7120

== ENCOUNTER → 2025-04-23 18:27 | Outpatient (BNV) | payer OTHER, SELFPAY | PROVIDERS: Admitting Provider Surgery; Emergency Provider Emergency Medicine; PCP Internal Medicine; Visit Provider Internal Medicine | DX: R94.31 Abnormal electrocardiogram [ECG] [EKG] (principal); R10.13 Epigastric pain | CPT/HCPCS: 93010 ==

== ENCOUNTER → 2025-04-23 20:22 | Outpatient (BNV) | payer OTHER, SELFPAY | PROVIDERS: Emergency Provider Emergency Medicine; PCP Internal Medicine; Visit Provider Radiology Diagnostic Radiology | DX: K56.690 Other partial intestinal obstruction (principal); N13.39 Other hydronephrosis; N13.4 Hydroureter | CPT/HCPCS: 74176 ==

== ENCOUNTER → 2025-04-24 07:18 | Outpatient (BNV) | payer OTHER, SELFPAY | PROVIDERS: Admitting Provider Surgery; Emergency Provider Emergency Medicine; PCP Internal Medicine; Visit Provider Physician Assistant Medical | DX: K56.609 Unspecified intestinal obstruction, unspecified as to partial versus complete obstruction (principal); N39.0 Urinary tract infection, site not specified | CPT/HCPCS: 99223 ==

== ENCOUNTER → 2025-04-24 07:18 | Outpatient (BNV) | payer OTHER, SELFPAY | PROVIDERS: Admitting Provider Surgery; Emergency Provider Emergency Medicine; PCP Internal Medicine; Visit Provider Surgery | DX: K56.609 Unspecified intestinal obstruction, unspecified as to partial versus complete obstruction (principal); N39.0 Urinary tract infection, site not specified | CPT/HCPCS: 99238 ==

== ENCOUNTER 2025-06-11 09:43 | Day surgery (SDC) | payer OTHER, SELFPAY ==
--- OUTSIDE RECORDS SUMMARY | 2025-05-12 09:08 | XMS_ITS | Clinical Summary ---
Author Organization [facility] Address [address] [place] [address] Phone Care Team Providers Care Structures Mechanic Name Role Phone Christ Silva MD Primary Care Provider [phone] Allergies No known active allergies Social History Tobacco Use Types Packs/Day Years Used Date Smoking Tobacco: Never Assessed Comments Unknown Sex and Gender Information Value Date Recorded Sex Assigned at Not on file Legal Sex Female 11:45 PM EST Gender Identity Not on file Sexual Orientation Not on file Plan of Treatment Health Maintenance Due Date Last Done Comments Colorectal Cancer Screening: Colonoscopy 1970 Hepatitis B Vaccines (1 of 3 - 19+ 3-dose series) 1990 Cervical Cancer Screening: Pap Smear 02/18/1992 Breast Cancer Screening 12/20/2022 12/21/19, 08/22/2019, 03/28/2018 Cholesterol Screening (Lipid Panel) 05/24/2024 HIV Screening 05/24/2024 Hepatitis C Screening 05/24/2024 Social Influencers of Health Screening 05/24/2024 Depression Screening 08/06/2024 COVID-19 Vaccine ( season) 2025 12/26/2021, 07/11/2021, 11/21/2020, Additional history exists Influenza Vaccine (#1) 2025 , 05/28/2023, 07/27/2022, Additional history exists DTaP,Tdap,and Td Vaccines (2 - Td or Tdap) 05/03/2026 05/03/2016 RSV Immunization Adult Patients (1 - 1-dose 75+ series) 2046 Zoster Vaccines Completed 05/04/2021, 03/02/2021 Pneumococcal Vaccine: [...] Procedure Name Priority Date/Time Associated Diagnosis Comments [facility] SCREENING DIGITAL Routine 12/20/2020 7:17 PM EDT Encounter for screening mammogram for malignant neoplasm of breast from Last 3 Months or Most Recently Relevant to Health Maintenance Results * [facility] SCREENING DIGITAL (12/20/2020 7:17 PM EDT) Anatomical Region Laterality Modality Mammography 12/20/2020 2:13 PM EDT Narrative 12/20/2020 7:17 PM EDT [facility] Diagnostic Imaging Department [address] [place] [address] Patient: ELISHA MILLS D.O.B./Age/Sex: 1970 - 50 - F Unit#: [id number] Location/Status: SPDIMAM/REG CLI Mnemonic/Ordering Site: DIGSC/SPMAM Ordering Physician: CHRIST SILVA MD Leroy Screening Digital - 12/20/20 - 1508 History: Bilateral breast cancer screening. Technique: Digital mammography. Conventional CC and MLO projections with tomosynthesis MLO views and computer aided detection Findings: Comparison:[facility] 08/21/2019, dating back to 03/09/2011. Breast tissue is mostly fatty replaced (category a density) bilaterally (as calculated by [employer] software). There are benign calcifications on the right. There is no suspicious group of microcalcification, no suspicious mass, architectural distortion or suspicious asymmetry. Impression: No evidence of malignancy. BIRADS category 2, benign findings, 3342F 08564, [id number] Note: Patient information entered into a reminder system with a target due date for the next mammogram; PQRI II 7095F Dictating Physician: MIKEY ROMAN MD Electronically Signed by: MIKEY ROMAN MD Dic Date/Time: 12/20/201916 Sign date/Time: 12/20/201916 Procedure Note Mikey Roman MD - 07/25/2022 [facility] Diagnostic Imaging Department [address] [place], [place] [id number] Patient: ELISHA MILLSO.B./Age/Sex: 1970 - 50 - F Unit#: [id number] Location/Status: SPDIMAM/REG CLI Mnemonic/Ordering Site: [facility] Ordering Physician: CHRIST SILVA MD Leroy Screening Digital - 12/20/20 - 1508 History: Bilateral breast cancer screening. Technique: Digital mammography. Conventional CC and MLO projections with tomosynthesis MLO views and computer aided detection Findings: Comparison:[facility] 08/21/2019, dating back to 03/09/2011. Breast tissue is mostly fatty replaced (category a density) bilaterally(as calculated by [employer] software). There are benign calcificationson the right. There is no suspicious group of microcalcification, no suspiciousmass, architectural distortion or suspicious asymmetry. Impression: No evidence of malignancy. BIRADS category 2, benign findings, 3342F 87552, [id number] Note: Patient information entered into a reminder system with a targetdue date for the next mammogram; PQRI II 7053F Dictating Physician: MIKEY ROMAN MD Electronically Signed by: MIKEY ROMAN MD Dic Date/Time: 12/20/201916 Sign date/Time: 12/20/201916 Christ Silva MD IMG BI PROCEDURES Final Resu lt from Last 3 Months or Most Recently Relevant to Health Maintenance Insurance [facility] MEDICAID - [place] Care Teams Structures Mechanic Relationship Specialty Start Date End Date Christ Silva MD [address] [place] [address] [place] [address] PCP - General Internal Medicine 07/01/24
--- OUTSIDE RECORDS SUMMARY | 2025-05-12 09:08 | XMS_ITS | Encounter Summary ---
Author Organization [facility] Address [address] [place] [address] Care Team Providers Care Apparatus Lineman Name Role Phone Christ Goodwin MD Primary Care Provider Encounter Details Date Type Department Care Team (Late st Contact Info) Description 01/30/2025 Lab Requisition [facility] - Main Lab [address] [facility] [place] [address] Ajay Leonard PA [address] [place] [address] Urinary tract infection, site not [...] Urine No growth 01/31/2025 12:44 PM EDT [facility]) [facility] Urine Urine specimen obtained by clean catch procedure / Unknown 01/30/2025 01/30/2025 5:39 PM EDT us Ajay [facility] MICROBIOLOGY - GENERAL ORD ERABLES Final Result [facility] LAB [address] [place] [address], documented in this encounter Visit Diagnoses Diagnosis Urinary tract infection, site not specified documented in this encounter Care Teams Apparatus Lineman Relationship Specialty Start Date End Date Christ Goodwin MD [address] [place] [address] Dr [address] [place] PCP - General Internal Medicine 07/01/24 documented as of this encounter
--- OUTSIDE RECORDS SUMMARY | 2025-05-12 09:08 | XMS_ITS | Clinical Summary ---
Author Organization [facility] Address [address] [place] [address] Care Team Providers Care Implementation Manager Name Role Phone Teresa Vega PA-C Primary Care Provider [phone] Source Comments PLEASE NOTE, if this patient [...] mcg/actuation nasal sprayIndication s:Seasonal allergies Place 1 Teague into the nostril(s) once daily. 16 g [...] 10/21/2014 Nephrolithiasis 08/19/2014 Overview (02/15/2015): Follows at [facility] Urolog Lt ureteroscopy with manipulation of lt renal stone and stent placed at [facility] January 27 2015 S/P unilateral salpingo-oophorectomy. LEFT 05/05 Overview (05/22/2014): Done at [facility] on 05/05/14 History of normal mammogram 04/16/2014 History of cervical cancer 01/26/2014 Overview (01/26/2014): Seen by dial brusher/onc at [facility] Sp Hysterectomy, had +nodes, received chemo and radiation On Estrogen She has persistent ovarian cyst and will undergo resection around April: explorat laparotomy, biopsy, etc Migraine headache 01/26/2014 Overview (01/26/2014): Has seen [facility] Neuro Prescribed IC NAratriptan [...] her usual. Asthma exacerbation Bipolar 1 disorder Overview (01/26/2014): Follows with Psych: Benitez Nick MD at [address] [place] [address] On: Celexa, Ambien and Klonopin Resolved Problems [...] on file [place] Care Teams Implementation Manager Relationship Specialty Start Date End Date Teresa Vega PA-C [address] [place] [address] PCP - General 10/01/18
--- NOTE | 2025-06-09 12:29 | HO.ANESPROP2 ---
Documented by User: Debra Lombardi NP 06/09/25 12:33 HPI - Anesthesia Eval Consult details Narrative: 55 yr old female for upper endoscopy H/O palpitations: on metoprolol -Extended Holter (3 days) and echocardiogram done back in February 2022 unremarkable. Holter monitor showed baseline normal sinus rhythm with average heart beat of 77 beats per minute with no significant pauses or bradycardia noted. There was a total of 4322 PVCs accounting for 1.32% of total beats but no patient reported events noted - Saw [facility] cardiology 02/2023, reassured that her symptoms are primarily from her PVCs and she has no other abnormal cardiac issues or findings. Recommended weight loss and also low dose Metoprolol 25 mg BID, which she is currently still on and she appears to be doing well on the medication so far [facility] Active Problems Active Problems: All Active Problems (Updated 04/30/25 @ 00:01 by Background Yuni) Gastritis (Acute) Hydronephrosis of right kidney (Acute) Adhesion, postoperative (Acute) Benign paroxysmal vertigo, unspecified ear (Acute) Anemia (Acute) Cold intolerance (Acute) HSV-1 (herpes simplex virus 1) infection (Acute) Insomnia (Acute) Osteoarthritis of multiple joints (Acute) Renal calculi (Acute) Trigger thumb, right thumb (Acute) Spondylosis of lumbar region without myelopathy or radiculopathy (Acute) Lumbar degenerative disc disease (Acute) Chronic right sacroiliac joint pain (Acute) Migraine with aura (Acute) Sleep difficulties (Acute) Snoring (Acute) Fatigue (Acute) Status post total hip replacement, right (Acute) Intractable nausea and vomiting (Acute) Ureteral stricture, left (Acute) Leukocytosis (Acute) Abnormal CT scan (Acute) PVC (premature ventricular contraction) (Acute) Palpitations (Acute) Cervicalgia (Acute) Osteoarthritis of right hip (Acute) Bilateral lumbar radiculopathy (Acute) Ingrown toenail of both feet (Acute) Compression fracture of body of thoracic vertebra (Acute) Right sciatic nerve pain (Acute) Osteopenia (Acute) Encounter for medication monitoring (Acute) Fibromyalgia (Acute) Obesity (BMI 30-39.9) (Acute) Bipolar depression (Acute) Vitamin D deficiency (Acute) Migraine (Acute) Allergic rhinitis (Acute) Mild intermittent asthma without complication (Acute) Pure hypercholesterolemia (Acute) Past Medical History Medical History Renal calculi Insomnia Osteoarthritis of multiple joints Hydronephrosis, bilateral Osteopenia Sacroiliac joint pain Encounter for medication monitoring Palpitations Gastritis Fibromyalgia Hx of small bowel obstruction Abdominal pain Obesity (BMI 30-39.9) Bipolar depression Vitamin D deficiency Migraine Allergic rhinitis Mild intermittent asthma without complication Pure hypercholesterolemia Primary osteoarthritis of right hip Family History Family History Father Kidney problem Diabetes Mother Kidney malignancy Diabetes Brother Asthma Diabetes Family history of problems with anesthesia: No Surgical History Surgical History S/P ureteral stent placement History of total hip arthroplasty (~08/15/23) S/P cystourethroscopy with dilation of urethral stricture (~07/21/20) History of esophagogastroduodenoscopy (EGD) Hx of unilateral oophorectomy Hx of colonoscopy Hx of cholecystectomy Hx of cystoscopy History of extraction of renal calculus History of carpal tunnel surgery History of hand surgery History of hysterectomy History of Problems with Anesthesia: No Social History Social History Household Members: Significant Other Housing: House Are you a primary emergency care tech to a significant other at home: No Do you presently have visiting nurse or other home services: No Alcohol intake: never Comment: counts correct Patient Tobacco Use Status: Never used Tobacco e-Cigarette/Vaping Use: Never Used Second Hand Smoke Exposure: No Have you been hit, kicked, punched, or otherwise hurt by someone within the past year? If so, by whom?: No Advance Directives: No Advance Directives Information Provided: Yes Advance Directives Date on File: 08/08/23 service: No Current occupational status: disabled Cognitive needs: No Hearing needs: No Vision needs: Yes Meds Allergies Allergy/AdvReac Type Severity Reaction Status Date / Time hazelnut Allergy Severe Itching, Verified 06/11/25 10:13 coughing, and hives Penicillins (PENICILLINS) Allergy Severe HIVES Verified 06/11/25 10:13 birch Allergy Intermediate Itching Verified 06/11/25 10:13 Iodinated Contrast Media (IV Allergy Intermediate HIVES Verified 06/11/25 10:13 CONTRAST) peanut (PEANUTS) Allergy Intermediate HIVES Verified 06/11/25 10:13 shellfish derived (SHELLFISH Allergy Intermediate HIVES Verified 06/11/25 10:13 DERIVED) almond Allergy Mild Hives Verified 06/11/25 10:13 cat dander Allergy Mild cough/hives Verified 06/11/25 10:13 dog dander Allergy Mild cough/hives Verified 06/11/25 10:13 pollen extracts Allergy Mild runny Verified 06/11/25 10:13 nose, itchy eyes Home Medications ?Medication ?Instructions ?Recorded ?Confirmed ?Last Taken ?Type cetirizine 10 mg tablet (Zyrtec) 10 mg PO DAILY PRN allergies 07/06/20 06/11/25 08/26/23 History clonazepam 1 mg tablet (Klonopin) 1 mg PO BID PRN Anxiety 07/06/20 06/11/25 06/11/25 History montelukast 10 mg tablet 10 mg PO BEDTIME 07/06/20 06/11/25 04/23/25 History (Singulair) cyclosporine 0.05 % eye drops in a 1 drp ophthalmic (eye) Q12H 01/06/21 06/11/25 04/23/25 History dropperette (Restasis) epinephrine 0.3 mg/0.3 mL 0.3 mg IM ONCE PRN anaphylaxis 09/18/22 06/11/25 08/26/23 History injection, auto-injector bimatoprost 0.01 % eye drops 1 drp ophthalmic (eye) BEDTIME 03/26/23 06/11/25 04/23/25 History (Lumigan) omalizumab 150 mg subcutaneous 150 mg subcut Q4W 05/02/23 06/11/25 04/16/25 History solution (Xolair) docusate sodium 100 mg capsule 100 mg PO BID PRN Constipation 08/27/23 06/11/25 04/23/25 History mometasone 100 mcg/actuation HFA 1 puff inhalation BID PRN breathing 08/27/23 06/11/25 Unknown History aerosol inhaler (Asmanex HFA) cholecalciferol (vitamin D3) 50 50 mcg PO DAILY 11/12/23 06/11/25 04/23/25 History mcg (2,000 unit) capsule bupropion HCl 300 mg 24 hr tablet, 300 mg PO DAILY 10/07/24 06/11/25 04/23/25 History extended release dorzolamide-timolol (PF) 2 %-0.5 % 1 drp ophthalmic (eye) BID 10/07/24 06/11/25 04/23/25 History eye drops in a dropperette (Cosopt (PF)) brimonidine 0.2 % eye drops 1 drp ophthalmic (eye) BID 04/24/25 06/11/25 04/23/25 History ketotifen fumarate 0.025 % (0.035 1 - 2 drp ophthalmic (eye) BID 04/24/25 06/11/25 04/23/25 History %) eye drops [id number] 1 cap PO DAILY@0800 04/24/25 06/11/25 04/23/25 History (pork)36,000-114,000-180k unit capsule,del rel (Creon) magnesium glycinate 100 mg PO BEDTIME 04/24/25 06/11/25 04/23/25 History naproxen sodium 220 mg tablet 220 mg PO BID PRN Pain 04/24/25 06/11/25 Unknown History (Aleve) Assessment and Plan Final Anesthetic Review Family History of Problems with Anesthesia: No History of Problems with Anesthesia: No Documented by User: Brayan Venegas MD 06/11/25 11:15 [facility] Past Medical History Medical History Renal calculi Insomnia Osteoarthritis of multiple joints Hydronephrosis, bilateral Osteopenia Sacroiliac joint pain Encounter for medication monitoring Palpitations Gastritis Fibromyalgia Hx of small bowel obstruction Abdominal pain Obesity (BMI 30-39.9) Bipolar depression Vitamin D deficiency Migraine Allergic rhinitis Mild intermittent asthma without complication Pure hypercholesterolemia Primary osteoarthritis of right hip Cognitive capacity: normal Functional capacity: independent ambulation Family History Family History Father Kidney problem Diabetes Mother Kidney malignancy Diabetes Brother Asthma Diabetes Surgical History Surgical History S/P ureteral stent placement History of total hip arthroplasty (~08/15/23) S/P cystourethroscopy with dilation of urethral stricture (~07/21/20) History of esophagogastroduodenoscopy (EGD) Hx of unilateral oophorectomy Hx of colonoscopy Hx of cholecystectomy Hx of cystoscopy History of extraction of renal calculus History of carpal tunnel surgery History of hand surgery History of hysterectomy Social History Social History Household Members: Significant Other Housing: House Are you a primary emergency care tech to a significant other at home: No Do you presently have visiting nurse or other home services: No Alcohol intake: never Comment: counts correct Patient Tobacco Use Status: Never used Tobacco e-Cigarette/Vaping Use: Never Used Second Hand Smoke Exposure: No Have you been hit, kicked, punched, or otherwise hurt by someone within the past year? If so, by whom?: No Advance Directives: No Advance Directives Information Provided: Yes Advance Directives Date on File: 08/08/23 service: No Current occupational status: disabled Cognitive needs: No Hearing needs: No Vision needs: Yes Meds Allergies Allergy/AdvReac Type Severity Reaction Status Date / Time hazelnut Allergy Severe Itching, Verified 06/11/25 10:13 coughing, and hives Penicillins (PENICILLINS) Allergy Severe HIVES Verified 06/11/25 10:13 birch Allergy Intermediate Itching Verified 06/11/25 10:13 Iodinated Contrast Media (IV Allergy Intermediate HIVES Verified 06/11/25 10:13 CONTRAST) peanut (PEANUTS) Allergy Intermediate HIVES Verified 06/11/25 10:13 shellfish derived (SHELLFISH Allergy Intermediate HIVES Verified 06/11/25 10:13 DERIVED) almond Allergy Mild Hives Verified 06/11/25 10:13 cat dander Allergy Mild cough/hives Verified 06/11/25 10:13 dog dander Allergy Mild cough/hives Verified 06/11/25 10:13 pollen extracts Allergy Mild runny Verified 06/11/25 10:13 nose, itchy eyes Home Medications ?Medication ?Instructions ?Recorded ?Confirmed ?Last Taken ?Type cetirizine 10 mg tablet (Zyrtec) 10 mg PO DAILY PRN allergies 07/06/20 06/11/25 08/26/23 History clonazepam 1 mg tablet (Klonopin) 1 mg PO BID PRN Anxiety 07/06/20 06/11/25 06/11/25 History montelukast 10 mg tablet 10 mg PO BEDTIME 07/06/20 06/11/25 04/23/25 History (Singulair) cyclosporine 0.05 % eye drops in a 1 drp ophthalmic (eye) Q12H 01/06/21 06/11/25 04/23/25 History dropperette (Restasis) epinephrine 0.3 mg/0.3 mL 0.3 mg IM ONCE PRN anaphylaxis 09/18/22 06/11/25 08/26/23 History injection, auto-injector bimatoprost 0.01 % eye drops 1 drp ophthalmic (eye) BEDTIME 03/26/23 06/11/25 04/23/25 History (Lumigan) omalizumab 150 mg subcutaneous 150 mg subcut Q4W 05/02/23 06/11/25 04/16/25 History solution (Xolair) docusate sodium 100 mg capsule 100 mg PO BID PRN Constipation 08/27/23 06/11/25 04/23/25 History mometasone 100 mcg/actuation HFA 1 puff inhalation BID PRN breathing 08/27/23 06/11/25 Unknown History aerosol inhaler (Asmanex HFA) cholecalciferol (vitamin D3) 50 50 mcg PO DAILY 11/12/23 06/11/25 04/23/25 History mcg (2,000 unit) capsule bupropion HCl 300 mg 24 hr tablet, 300 mg PO DAILY 10/07/24 06/11/25 04/23/25 History extended release dorzolamide-timolol (PF) 2 %-0.5 % 1 drp ophthalmic (eye) BID 10/07/24 06/11/25 04/23/25 History eye drops in a dropperette (Cosopt (PF)) brimonidine 0.2 % eye drops 1 drp ophthalmic (eye) BID 04/24/25 06/11/25 04/23/25 History ketotifen fumarate 0.025 % (0.035 1 - 2 drp ophthalmic (eye) BID 04/24/25 06/11/25 04/23/25 History %) eye drops [id number] 1 cap PO DAILY@0800 04/24/25 06/11/25 04/23/25 History (pork)36,000-114,000-180k unit capsule,del rel (Creon) magnesium glycinate 100 mg PO BEDTIME 04/24/25 06/11/25 04/23/25 History naproxen sodium 220 mg tablet 220 mg PO BID PRN Pain 04/24/25 06/11/25 Unknown History (Aleve) Exam Exam Date and Time: 06/11/2025 Airway Mallampati Class: II TM Dist: >3cm Neck ROM: Full Heart: normal Lungs: normal Assessment and Plan Assessment Anesthesia Assessment: Anesthesia Plan Discussed and Smoking Cess. Discussed Final Anesthetic Review NPO: Yes ASA Class: II Final Preanesthetic Review: No Changes in Pt Med Stat, Meds/Allgs Chart Reviewed, Consent Obtained/Reviewed and Anes Risks/Benef Reviewed Patient Risk: Low Procedure Risk: Low Anesthetic Plan Anesthetic Plan: MAC: Disposition: Standard PACU
[2025-06-09 14:13] VITALS: BMI 37.9
[2025-06-11 10:10] VITALS: BMI 38.3
--- NOTE | 2025-06-11 10:16 | P.HPSUR_ITS ---
Pre-Procedural Eval Section A - 24 Hr Update-Section A only Date of Service: 06/11/25 Section B - Complete if H&P > 30 days Chief Complaint: Epigastric pain, N.V Details of Present Illness: Renal calculi Insomnia Osteoarthritis of multiple joints Hydronephrosis, bilateral Osteopenia Sacroiliac joint pain Encounter for medication monitoring Palpitations Gastritis Fibromyalgia Hx of small bowel obstruction Abdominal pain Obesity (BMI 30-39.9) Bipolar depression Vitamin D deficiency Migraine Allergic rhinitis Mild intermittent asthma without complication Pure hypercholesterolemia Primary osteoarthritis of right hip Surgical History S/P ureteral stent placement History of total hip arthroplasty (~08/15/23) S/P cystourethroscopy with dilation of urethral stricture (~07/21/20) History of esophagogastroduodenoscopy (EGD) Hx of unilateral oophorectomy Hx of colonoscopy Hx of cholecystectomy Hx of cystoscopy History of extraction of renal calculus History of carpal tunnel surgery History of hand surgery History of hysterectomy Present Medications: see Short Stay Collaborative assessment Allergies: Allergies Allergy/AdvReac Type Severity Reaction Status Date / Time hazelnut Allergy Severe Itching, Verified 06/11/25 10:13 coughing, and hives Penicillins (PENICILLINS) Allergy Severe HIVES Verified 06/11/25 10:13 birch Allergy Intermediate Itching Verified 06/11/25 10:13 Iodinated Contrast Media (IV Allergy Intermediate HIVES Verified 06/11/25 10:13 CONTRAST) peanut (PEANUTS) Allergy Intermediate HIVES Verified 06/11/25 10:13 shellfish derived (SHELLFISH Allergy Intermediate HIVES Verified 06/11/25 10:13 DERIVED) almond Allergy Mild Hives Verified 06/11/25 10:13 cat dander Allergy Mild cough/hives Verified 06/11/25 10:13 dog dander Allergy Mild cough/hives Verified 06/11/25 10:13 pollen extracts Allergy Mild runny Verified 06/11/25 10:13 nose, itchy eyes Review of Systems Review of Systems Comment: Ten point ROS negative Exam Exam Comment: Gen appear: No acute distress HEENT: no icterus Chest: No overt resp distress Abd: soft, nontender, nondistended Psych: Stable affect, answering questions appropriately Neuro: A/Ox3 noted to move all extremities spontaneously Ext: no peripheral edema Plan Diagnosis/Plan: Unchanged I have reviewed the history and physical and performed a pertinent physical examination on my patient. No changes have occurred unless specified. Time Spent With Patient Time: Total time managing care of this patient today ____ minutes.
[2025-06-11] MEDS: Lactated Ringers 1,000 ML 100 ML IVCONT (10:19)
[2025-06-11 10:25] VITALS: BP 140/59; PULSE 79; RESP 18; TEMP 36.7; O2SAT 97
--- NOTE | 2025-06-11 10:56 | PC.NURSE ---
report given to jordan rodarte rn aware of 2 places to sign on preop record once anesthesia consent is complete and order/24 hour are completed.
--- NOTE | 2025-06-11 11:11 | P.OP_ITS ---
Operative Note Operative Note Date of Service: 06/11/25 Narrative: Procedure: Esophagogastroduodenoscopy Endoscopist: Asha Dinh MD Indication: Abd pain, N,V Anesthesia Provider: Dr Venegas Anesthesia Type: MAC ?? EGD Procedure:?? The procedure, indications, preparation and potential complications were reviewed with the patient, who indicated understanding and gave written informed consent to proceed. A physical exam was performed. The endoscope was introduced through the mouth, and advanced to the second part of duodenum. The mucosa was carefully examined on slow withdrawal of the endoscope. The patient tolerated the procedure well. There were no immediate complications.? ? EGD Findings:? * Esophagus:? Normal mucosa noted in the entire esophagus. The Z line was at 35 cm. Middle and lower esophagus forceps biopsies were obtained to rule out eosinophilic esophagitis. * Stomach:? A single erosion noted at 10 o clock in antrum. Remaining mucosa was otherwise normal. Retroflexion was performed in the cardia. Cold forceps biopsies were taken from the gastric body and antrum for histology. * Duodenum:? Normal mucosa was noted in the whole of the examined duodenum. Cold forceps biopsies were taken from duodenal bulb and second portion of the duodenum to rule out celiac sprue. ? EGD Impressions:? * Normal esophagus (biopsy) * Gastritis (biopsy) * Normal duodenum (biopsy) ?? Recommendations:?? * Follow biopsy results. Our office will call or send a letter with results within 7-10 days. * Continue PPI therapy. * If H pylori +, patient will be prescribed eradication therapy followed by test of cure. * Avoid NSAIDs. * Patient reports episodic abdominal pain, nausea, vomiting and is at baseline in between the episodes. Consider other etiologies such as abdominal migraine, cyclical vomiting syndrome, porphyria etc. Above has been reviewed with the patient.
[2025-06-11 11:40] VITALS: BP 129/69; PULSE 77; RESP 16; TEMP 36.7; O2SAT 96
[2025-06-11 11:55] VITALS: BP 139/85; PULSE 67; RESP 14; TEMP 36.8; O2SAT 98
== END 2025-06-11 12:07 | disposition home or self-care (01) ==
PROVIDERS: PCP Internal Medicine; Visit Provider Internal Medicine
PROC: 0DJ08ZZ Inspection of Upper Intestinal Tract, Via Natural or Artificial Opening Endoscopic (ICD-10-PCS; CPT 43235; principal; 2025-06-11 11:40)
DX: R10.13 Epigastric pain (principal); K59.00 Constipation, unspecified; K58.9 Irritable bowel syndrome, unspecified; K21.9 Gastro-esophageal reflux disease without esophagitis; R14.0 Abdominal distension (gaseous); R11.2 Nausea with vomiting, unspecified; K29.70 Gastritis, unspecified, without bleeding; R89.7 Abnormal histological findings in specimens from other organs, systems and tissues
CPT/HCPCS: 43239; 88305; 88313; 88342; J2003; J2704; J3010

== ENCOUNTER → 2025-06-11 09:43 | Outpatient (BNV) | payer OTHER, SELFPAY | PROVIDERS: PCP Internal Medicine; Visit Provider Internal Medicine | DX: R10.13 Epigastric pain (principal); K29.70 Gastritis, unspecified, without bleeding | CPT/HCPCS: 43239 ==

== ENCOUNTER 2025-06-24 14:16 | Outpatient (REF) | payer OTHER, SELFPAY ==
[2025-06-24 14:25] LABS: MANUAL DIFF FLAG NO
[2025-06-24 18:58] LABS: Hematocrit 37.9 % (37.0-47.0); Hemoglobin 11.6 g/dl (12.0-16.0); Imm Gran Abs Auto 0.03 X10*3/uL (0.00-0.03); Imm Gran Pct Auto 0.3 % (0.0-0.4); Lymphocytes Absolute Auto 1.4 X10*3/uL (1.2-4.9); Mean Corpuscular HGB Conc 30.6 g/dl (31.0-35.0); Mean Corpuscular Hemoglobin 26.7 pg (27.0-33.0); Mean Corpuscular Volume 87.3 fL (80.0-98.0); NRBC Abs Auto 0.000 X10*3/uL (0.0-0.012); NRBC Pct Auto 0.0 /100WBC (0.0-0.2); Platelet Count 341 X10*3/uL (160-400); Red Blood Count 4.34 X10*6/uL (4.20-5.50); White Blood Count 9.2 X10*3/uL (4.8-10.8)
[2025-06-24 19:54] LABS: Alanine Aminotransferase 13 U/L (0-31); Albumin Level 4.4 g/dL (3.5-5.0); Alkaline Phosphatase 88 U/L (39-117); Anion Gap 14 (12-20); Aspartate Amino Transferase 23 U/L (5-31); Blood Urea Nitrogen 13 mg/dL (9-16); Calcium 9.5 mg/dL (8.4-10.2); Carbon Dioxide 20 mmol/L (22-29); Chloride 110 mmol/L (96-108); Cholesterol 214 mg/dL (<200); Estimated Glomerular Filt Rate > 60; HDL Cholesterol 53 mg/dL (>40); Potassium 4.3 mmol/L (3.3-5.1); Sodium 140 mmol/L (135-145); Total Protein 7.6 g/dL (6.5-8.0); Triglycerides 224 mg/dL (<150)
== END 2025-06-24 14:17 | disposition home or self-care (01) ==
LOC: HO.HKASLDS 14:16
PROVIDERS: PCP Internal Medicine; Visit Provider Internal Medicine
DX: M15.0 Primary generalized (osteo)arthritis (principal); E78.00 Pure hypercholesterolemia, unspecified; D64.9 Anemia, unspecified
CPT/HCPCS: 36415; 80053; 80061; 85025; 99212

== ENCOUNTER 2025-06-24 14:32 | Outpatient (AMB) | payer OTHER, SELFPAY ==
--- NOTE | 2025-06-24 15:08 | A.OFFVIS_ITS ---
Vital Signs 06/24/25 15:12 Height 5 ft Weight 196 lb 13.965 oz BMI 38.4 BP 134/80 Blood Pressure Location Lt brachial Position Sitting Pulse 73 Pulse Source Pulse Oximeter Pulse Oximetry (%) 98 Oxygen Delivery Method Room Air Intake Visit Reasons: OA Intake Note: Patient presents for OA follow up. Allergies hazelnut Allergy (Severe, Verified 06/24/25 15:12) Itching, coughing, and hives Penicillins (PENICILLINS) Allergy (Severe, Verified 06/24/25 15:12) HIVES birch Allergy (Intermediate, Verified 06/24/25 15:12) Itching Iodinated Contrast Media (IV CONTRAST) Allergy (Intermediate, Verified 06/24/25 15:12) HIVES peanut (PEANUTS) Allergy (Intermediate, Verified 06/24/25 15:12) HIVES shellfish derived (SHELLFISH DERIVED) Allergy (Intermediate, Verified 06/24/25 15:12) HIVES almond Allergy (Mild, Verified 06/24/25 15:12) Hives cat dander Allergy (Mild, Verified 06/24/25 15:12) cough/hives dog dander Allergy (Mild, Verified 06/24/25 15:12) cough/hives pollen extracts Allergy (Mild, Verified 06/24/25 15:12) runny nose, itchy eyes Medication List - Last Reconciled 06/24/25 by Taylor Adams MD albuterol sulfate 90 mcg/actuation 2 puffs inhalation Q4-6H PRN atorvastatin 20 mg PO DAILY baclofen 20 mg PO BID 30 days bimatoprost 0.01% (Lumigan) 1 drp ophthalmic (eye) BEDTIME brimonidine 0.2% 1 drp ophthalmic (eye) BID bupropion HCl XL 300 mg PO DAILY cetirizine (Zyrtec) 10 mg PO DAILY PRN cholecalciferol (vitamin D3) 50 mcg PO DAILY clonazepam (Klonopin) 1 mg PO BID PRN cyanocobalamin (vitamin B-12) ER 1,000 mcg PO DAILY cyclosporine 0.05% (Restasis) 1 drp ophthalmic (eye) Q12H docusate sodium 100 mg PO BID PRN dorzolamide-timolol (PF) 2-0.5 % (Cosopt (PF)) 1 drp ophthalmic (eye) BID epinephrine 0.3 mg IM ONCE PRN famotidine 20 mg PO BEDTIME fluticasone propionate 50 mcg/actuation 1 spray intranasal DAILY PRN gabapentin 800 mg PO Q8H 30 days ketotifen fumarate 0.025%(0.035%) 1 - 2 drps ophthalmic (eye) BID bldowr-ybjntdpc-vjkznqm (pork) 36,000-114,000- 180,000 unit (Creon) 1 cap PO DAILY@0800 magnesium glycinate 100 mg PO BEDTIME mometasone 100 mcg/actuation (Asmanex HFA) 1 puff inhalation BID PRN montelukast (Singulair) 10 mg PO BEDTIME naloxone 4 mg/actuation (Narcan) 4 mg intranasal Q2M PRN naproxen sodium (Aleve) 220 mg PO BID PRN omalizumab (Xolair) 150 mg subcut Q4W ondansetron 4 mg PO Q8H PRN pantoprazole 40 mg PO QAM riboflavin (vitamin B2) 400 mg PO DAILY 90 days rimegepant (Nurtec ODT) 75 mg PO ONCE PRN 30 days MDD 1 tab [SHOWER CHAIR As directed] tramadol 50 mg PO TID 90 days walker Folding Front wheeled walker zolpidem (Ambien) 10 mg PO BEDTIME PRN 30 days HPI Comments Details: Patient is a 55-year-old female with asthma, hyperlipidemia, depression, osteoarthritis and fibromyalgia here today for follow up Interval History: Patient last seen 12/17/24 with me - On Tramadol 50mg bid - Patient continues to complain of back pain. - She is awaiting word from pain management. - With respect to her hip has been having improvement in her right hip post her surgery. - Continuing with PT. - Reports that the tramadol helps her but she definitely feels the waning of effect close to when the second dose is due - Increased frequency of tramdol 50mg tid Today - On tramadol 50mg tid - Feels that it helps but reduced her dose to bid due to side effects - Followed up with pain management and is going schedule back injections Rheumatologic History: Patient with a history of low back pain dating back to 1996 at receiving radiation for cervical cancer. Was told at that time that she had vertebral fractures at T10 and T11. Tried physical therapy and cortisone injections for her pain without relief. 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 She was on Humira for 1 year then methotrexate and sulfasalazine without relief in her pain. MRI of her pelvis was done subsequently which did not show any evidence of inflammation and she was diagnosed with osteoarthritic change and degenerative joint disease of her spine. Current Rheumatology Medication(s): Tramadol 50 mg TID PFSH Medical History Renal calculi Insomnia Osteoarthritis of multiple joints Hydronephrosis, bilateral Osteopenia Sacroiliac joint pain Encounter for medication monitoring Palpitations Gastritis Fibromyalgia Hx of small bowel obstruction Abdominal pain Obesity (BMI 30-39.9) Bipolar depression Vitamin D deficiency Migraine Allergic rhinitis Mild intermittent asthma without complication Pure hypercholesterolemia Primary osteoarthritis of right hip Surgical History S/P ureteral stent placement History of total hip arthroplasty (~08/15/23) S/P cystourethroscopy with dilation of urethral stricture (~07/21/20) History of esophagogastroduodenoscopy (EGD) Hx of unilateral oophorectomy Hx of colonoscopy Hx of cholecystectomy Hx of cystoscopy History of extraction of renal calculus History of carpal tunnel surgery History of hand surgery History of hysterectomy Family History Father Kidney problem Diabetes Mother Kidney malignancy Diabetes Brother Asthma Diabetes Social History Household Members: Significant Other Housing: House Are you a primary certified social workers in health care to a significant other at home: No Do you presently have visiting nurse or other home services: No Alcohol intake: never Comment: counts correct Patient Tobacco Use Status: Never used Tobacco e-Cigarette/Vaping Use: Never Used Second Hand Smoke Exposure: No Advance Directives Date on File: 08/08/23 service: No Current occupational status: disabled Cognitive needs: No Hearing needs: No Vision needs: Yes Review of Systems Narrative Review of Systems Constitutional: Denies fever, chills, weight loss ENT: Denies vision changes, eye pain or eye redness, dental caries, dry mouth GI: Denies nausea, vomiting, diarrhea, abdominal pain, change in BM Pulm: Denies SOB, ARENAS, hemoptysis, wheezing Cards: Denies chest pain, palpitations Skin: Denies Raynaud's, rash, nail changes, photosensitivity, SUBSTANCE ABUSE RN: Denies headaches, weakness, paresthesias, recurrent falls MSK: as per HPI All other systems reviewed and are unremarkable except noted above Physical Exam Exam Exam: Vital signs reviewed Physical Examination CONSTITUITIONAL Patient alert and cooperative. Well appearing and in no apparent painful distress MSK Hands * Right Hand: Able to make a fist. No swelling or tenderness to palpation of the MCPs, PIPs or DIPs. No deformities noted. * Left Hand: Able to make a fist. No swelling or tenderness to palpation of the MCPs, PIPs or DIPs. No deformities noted. Wrists * Right Wrist: Full ROM to flexion and extension. No swelling or TTP * Left Wrist: Full ROM to flexion and extension. No swelling or TTP Elbows * Right Elbow: Full ROM. No swelling or TTP. No TTP of the medial epicondyle. No TTP of the lateral epicondyle * Left Elbow: Full ROM. No swelling or TTP. No TTP of the medial epicondyle. No TTP of the lateral epicondyle Shoulders * Right shoulder: Full ROM. No swelling noted. No TTP of the AC joint. No TTP of the subacromial bursa. No TTP of the posterior shoulder * Left shoulder: Full ROM. No swelling noted. No TTP of the AC joint. No TTP of the subacromial bursa. No TTP of the posterior shoulder Hips * Right hip: Good ROM. No pain elicited with hip flexion/internal rotation/external rotation * Left hip: Good ROM. No pain elicited with hip flexion/internal rot ation/external rotation Hip bursa: No tenderness to palpation bilaterally Knees * Right knee: Full ROM. No swelling noted. No TTP of the knee joint line. No TTP of pes anserine bursa * Left knee: Full ROM. No swelling noted. No TTP of the knee joint line. No TTP of pes anserine bursa. Ankles * Right ankle: Good ankle dorsiflexion and plantar flexion. No swelling. No TTP of the ankle joint * Left ankle: Good ankle dorsiflexion and plantar flexion. No swelling. No TTP of the ankle joint Feet * Right foot: Negative squeeze test * Left foot: Negative squeeze test Tender points? * No tenderness to palpation of the bilateral trapezius, supraspinatus, anterior costochondral junctions, bilateral suboccipital muscle insertions SKIN No rashes Vital Signs: Last Vital Signs Pulse 73 06/24/25 15:12 BP 134/80 06/24/25 15:12 Pulse Ox 98 06/24/25 15:12 Oxygen Delivery Method Room Air 06/24/25 15:12 BMI result Body Mass Index 38.4 Results Reviewed Results Reviewed: Laboratory Tests 04/25/25 09:37 WBC 8.6 RBC 3.85 L Hgb 10.6 L Hct 34.3 L Plt Count 179 D Sodium 141 Potassium 3.5 Chloride 112 H Carbon Dioxide 20 L BUN 8 L Creatinine 0.67 Assessment & Plan Assessment & Plan (1) Polyarticular osteoarthritis: Code(s): M15.9 - Polyosteoarthritis, unspecified Plan: #Polyarticular OA Patient is a 55-year-old female with polyarticular osteoarthritis involving in the spine, hips and knees. We will decrease tramadol due to side effects Follow up with pain management for spinal injections Plan - Decrease tramadol to 50mg bid - Follow up with pain management for spinal injections - RTC 6 months Plan I spent 20 minutes reviewing the record and labs, taking a history, examining the patient, discussing the treatment plan, ordering diagnostic work up and documenting in the medical record Coding Level of Care Code Est Pt Level 3 (28765) Diagnoses Polyarticular osteoarthritis M15.9
[2025-06-24 15:12] VITALS: BP 134/80; PULSE 73; O2SAT 98; BMI 38.4
== END 2025-06-24 15:48 | disposition home or self-care (01) ==
LOC: HO.RHES 14:33
PROVIDERS: PCP Internal Medicine; Visit Provider Student in an Organized Health Care Education/Training Program
DX: M15.9 Polyosteoarthritis, unspecified (principal)
CPT/HCPCS: 99213

== ENCOUNTER 2025-07-01 14:33 | Outpatient (REF) | payer OTHER, SELFPAY ==
--- NOTE | 2025-07-01 14:36 | EMG_ITS ---
Chief complaint: Left hand pain and numbness, especially after being hospitalized for 3 days for gastric pain and getting several IVs on that left arm History of bilateral CTR 1997 Reason for referral: Evaluate for Carpal Tunnel Syndrome Referred by: Dr. Sotomayor Procedure done: Left upper extremity NCS/EMG Precautions and/or limitations: None The limb temperature was monitored continuously and remained between 32-36 degrees C during the performance of the NCS. Nerve Conduction Studies Anti Sensory Summary Table ?Stim Site NR Onset (ms) Norm Onset (ms) Peak (ms) Norm Peak (ms) O-P Amp (?V) Norm O-P Amp Site1 Site2 Delta-0 (ms) Dist (cm) Jagdish (m/s) Norm Jagdish (m/s) Left Median Anti Sensory (2nd Digit) Wrist ? 2.5 3.2 <3.6 32.3 >10 Wrist 2nd Digit 2.5 14.0 56 Left Ulnar Anti Sensory (5th Digit) Wrist ? 2.3 3.0 <3.7 49.7 >15.0 Wrist 5th Digit 2.3 14.0 61 Motor Summary Table ?Stim Site NR Onset (ms) Norm Onset (ms) O-P Amp (mV) Norm O-P Amp iAmp (mV) Amp (1st) (%) Site1 Site2 Delta-0 (ms) Dist (cm) Jagdish (m/s) Norm Jagdish (m/s) Left Median Motor (Abd Poll Brev) Wrist ? 3.8 <3.9 9.6 >4.5 11.9 100.0 Elbow Wrist 3.3 18.0 55 >45 Elbow ? 7.1 8.4 10.5 87.5 Left Ulnar Motor (Abd Dig Minimi) Wrist ? 2.7 <3.0 11.1 >5 12.7 100.0 B Elbow Wrist 2.9 17.5 60 >45 B Elbow ? 5.6 10.2 11.8 91.9 A Elbow B Elbow 1.3 10.0 77 >45 A Elbow ? 6.9 10.1 11.8 91.0 Comparison Summary Table ?Stim Site NR Peak (ms) Norm Peak (ms) P-T Amp (?V) Site1 Site2 Delta-P (ms) Norm Delta (ms) Left Median/Radial Dig I Comparison (Digit 1 - 10cm) Median ? 2.6 <2.9 84.7 Median Radial 0.3 Radial ? 2.3 <2.8 50.8 EMG ?Side Muscle Nerve Root Ins Act Fibs Psw Amp Dur Poly Recrt Int Pat Comment Left 1stDorInt Ulnar C8-T1 Nml Nml Nml Nml Nml 0 Nml Complete Left FlexCarRad Median C6-7 Nml Nml Nml Nml Nml 0 Nml Complete Left Biceps Musculocut C5-6 Nml Nml Nml Nml Nml 0 Nml Complete Left Triceps Radial C6-7-8 Nml Nml Nml Nml Nml 0 Nml Complete Left Deltoid Axillary C5-6 Nml Nml Nml Nml Nml 0 Nml Complete FINDINGS: All motor and sensory nerves tested showed normal latencies, amplitudes and conduction velocities. Concentric needle EMG was performed in selected muscles of the left upper extremity. Study did not reveal signs of electric abnormalities as shown in the table above. IMPRESSION: 1. This is a normal study. 2. There is no electrodiagnostic evidence for median neuropathy, ulnar neuropathy, brachial plexopathy, or cervical radiculopathy. Thank you for your kind referral. Juana Anderson MD, VINAY Board Certified, [place] Board of [employer] Medicine and Rehabilitation (ABPMR) Board Certified, [place] Board of Electrodiagnostic Medicine (ABEM) CODIN 77787 x 1 extremity MTDD
== END 2025-07-01 14:34 | disposition home or self-care (01) ==
LOC: HO.NEURO 14:33
PROVIDERS: PCP Internal Medicine; Visit Provider Orthopaedic Surgery
DX: R20.0 Anesthesia of skin (principal); R20.2 Paresthesia of skin; M79.642 Pain in left hand
CPT/HCPCS: 95886; 95909

== ENCOUNTER → 2025-07-01 14:36 | Outpatient (BNV) | payer OTHER, SELFPAY | PROVIDERS: PCP Internal Medicine; Visit Provider Physical Medicine & Rehabilitation | DX: M79.642 Pain in left hand (principal); R20.0 Anesthesia of skin | CPT/HCPCS: 95886; 95909 ==

== ENCOUNTER 2025-07-13 14:39 | Outpatient (AMB) | payer OTHER, SELFPAY ==
[2025-07-13 15:10] VITALS: BP 126/88; PULSE 73; TEMP 36.2; O2SAT 98; BMI 37.7
--- NOTE | 2025-07-13 15:10 | A.OFFPC_ITS ---
Vital Signs 07/13/25 15:10 Height 5 ft Weight 193 lb 4 oz BMI 37.7 BP 126/88 Blood Pressure Location Lt brachial Position Sitting Pulse 73 Pulse Source Pulse Oximeter Temp 97.1 F Temp Source Temporal Artery Scan Pulse Oximetry (%) 98 Oxygen Delivery Method Room Air Intake Visit Reasons: 4 mnth f/u Allergies hazelnut Allergy (Severe, Verified 07/13/25 15:28) Itching, coughing, and hives Penicillins (PENICILLINS) Allergy (Severe, Verified 07/13/25 15:28) HIVES birch Allergy (Intermediate, Verified 07/13/25 15:28) Itching Iodinated Contrast Media (IV CONTRAST) Allergy (Intermediate, Verified 07/13/25 15:28) HIVES peanut (PEANUTS) Allergy (Intermediate, Verified 07/13/25 15:28) HIVES shellfish derived (SHELLFISH DERIVED) Allergy (Intermediate, Verified 07/13/25 15:28) HIVES almond Allergy (Mild, Verified 07/13/25 15:28) Hives cat dander Allergy (Mild, Verified 07/13/25 15:28) cough/hives dog dander Allergy (Mild, Verified 07/13/25 15:28) cough/hives pollen extracts Allergy (Mild, Verified 07/13/25 15:28) runny nose, itchy eyes Medication List - Last Reconciled 07/13/25 by Christ Goodwin MD albuterol sulfate 90 mcg/actuation 2 puffs inhalation Q4-6H PRN atorvastatin 20 mg PO DAILY baclofen 20 mg PO BID 30 days bimatoprost 0.01% (Lumigan) 1 drp ophthalmic (eye) BEDTIME brimonidine 0.2% 1 drp ophthalmic (eye) BID bupropion HCl XL 300 mg PO DAILY cetirizine (Zyrtec) 10 mg PO DAILY PRN cholecalciferol (vitamin D3) 50 mcg PO DAILY clonazepam (Klonopin) 1 mg PO BID PRN cyanocobalamin (vitamin B-12) ER 1,000 mcg PO DAILY cyclosporine 0.05% (Restasis) 1 drp ophthalmic (eye) Q12H docusate sodium 100 mg PO BID PRN dorzolamide-timolol (PF) 2-0.5 % (Cosopt (PF)) 1 drp ophthalmic (eye) BID epinephrine 0.3 mg IM ONCE PRN famotidine 20 mg PO BEDTIME fluticasone propionate 50 mcg/actuation 1 spray intranasal DAILY PRN gabapentin 800 mg PO Q8H 30 days ketotifen fumarate 0.025%(0.035%) 1 - 2 drps ophthalmic (eye) BID fluwjc-bnjnfzdf-whiqcub (pork) 36,000-114,000- 180,000 unit (Creon) 1 cap PO DAILY@0800 magnesium glycinate 100 mg PO BEDTIME mometasone 100 mcg/actuation (Asmanex HFA) 1 puff inhalation BID PRN montelukast (Singulair) 10 mg PO BEDTIME naloxone 4 mg/actuation (Narcan) 4 mg intranasal Q2M PRN naproxen sodium (Aleve) 220 mg PO BID PRN omalizumab (Xolair) 150 mg subcut Q4W ondansetron 4 mg PO Q8H PRN pantoprazole 40 mg PO QAM riboflavin (vitamin B2) 400 mg PO DAILY 90 days rimegepant (Nurtec ODT) 75 mg PO ONCE PRN 30 days MDD 1 tab [SHOWER CHAIR As directed] tramadol 50 mg PO TID 90 days walker Folding Front wheeled walker zolpidem (Ambien) 10 mg PO BEDTIME PRN 30 days Tobacco use date assessed: 07/13/25 Dental Screening Dental Screen Date: 07/13/25 Did you have a dental visit in the last 12 months?: Yes Did you have a dental problem in the last 6 months where you did not have access to dental care?: No Was dental information given to patient?: Patient has dentist HPI 4 mnth f/u HPI Details Patient comes in today for her follow-up visit States that she feels okay She denies any headaches or dizziness Denies any chest pains, no increased shortness of breath No nausea/vomiting, no abdominal pain No change in bowel habits noted She had her follow-up labs done a few weeks ago - to discuss her results [facility] Medical History Renal calculi Insomnia Osteoarthritis of multiple joints Hydronephrosis, bilateral Osteopenia Sacroiliac joint pain Encounter for medication monitoring Palpitations Gastritis Fibromyalgia Hx of small bowel obstruction Abdominal pain Obesity (BMI 30-39.9) Bipolar depression Vitamin D deficiency Migraine Allergic rhinitis Mild intermittent asthma without complication Pure hypercholesterolemia Primary osteoarthritis of right hip Surgical History S/P ureteral stent placement History of total hip arthroplasty (~08/15/23) S/P cystourethroscopy with dilation of urethral stricture (~07/21/20) History of esophagogastroduodenoscopy (EGD) Hx of unilateral oophorectomy Hx of colonoscopy Hx of cholecystectomy Hx of cystoscopy History of extraction of renal calculus History of carpal tunnel surgery History of hand surgery History of hysterectomy Family History Father Kidney problem Diabetes Mother Kidney malignancy Diabetes Brother Asthma Diabetes Social History Household Members: Significant Other Housing: House Are you a primary rn progressive care unit to a significant other at home: No Do you presently have visiting nurse or other home services: No Alcohol intake: never Comment: counts correct Patient Tobacco Use Status: Never used Tobacco e-Cigarette/Vaping Use: Never Used Second Hand Smoke Exposure: No Advance Directives Date on File: 08/08/23 service: No Current occupational status: disabled Cognitive needs: No Hearing needs: No Vision needs: Yes Questionnaire PHQ-9 Over the last 2 weeks, how often have you been bothered by any of the following problems? 1. Little interest or pleasure in doing things: several days 2. Feeling down, depressed, or hopeless: several days 3. Trouble falling or staying asleep, or sleeping too much: nearly every day 4. Feeling tired or having little energy: nearly every day 5. Poor appetite or overeating: more than half the days 6. Feeling bad about yourself - or that you are a failure or have let yourself or your family down: more than half the days 7. Trouble concentrating on things, such as reading the newspaper or watching television: more than half the days 8. Moving or speaking so slowly that other people could have noticed. Or the opposite - being so fidgety or restless that you have been moving around a lot more than usual: more than half the days 9. Thoughts that you would be better off or of hurting yourself in some way: nearly every day Total score: 19 Depression Screening Interpretation: Positive Depression Screening Follow-up: Existing condition and In treatment Depression Screening Done: Yes 96129 - PHQ-9 Billing: Yes Source: Developed by Drs. Khalif Rodriguez, Columba Bangura, Shyam Timmons and colleagues, with an educational jalil from [employer]. Thrive Questionnaire Date Thrive assessed: 10/05/24 I am a: Patient What is your living situation today?: I have a steady place to live Within the past 12 months, did the food you bought not last and you didn't have the money to get more?: Never true Within the past 12 months, did you worry whether your food would run out before you got money to buy more?: Never true Do you have trouble paying for medicines?: No Do you have trouble getting transportation to medical appointments?: No Do you have trouble paying your heating and electricity bill?: No Do you have trouble taking care of your child, family member or friend?: I choose not to answer this question Do you have trouble with day-to-day activities such as bathing, preparing meals, shopping, managing finances, etc.?: Yes Are you currently unemployed and looking for a job?: I choose not to answer this question Are you interested in more education?: I choose not to answer this question Please select the resources that you would like help with: None Currently or been in a relationship where the following occur: No concerns reported THRIVE Score: 0 AUDIT C Alcohol Use Questionnaire (AUDIT-C) 1. How often do you have a drink containing alcohol?: Never 3. How often do you have six or more drinks on one occasion?: Never Total Score: 0 Score Reviewed/Action Taken: Yes ALEKS-7 AMB Questionnaire ALEKS-7 Date ALEKS - 7 assessed: 03/09/25 Feeling nervous, anxious, or on edge: 3 = Nearly every day Not being able to stop or control worryin = Nearly every day Worrying too much about different things: 3 = Nearly every day Trouble relaxin = Nearly every day Being so restless that it is hard to sit still: 3 = Nearly every day Becoming easily annoyed or irritable: 3 = Nearly every day Feeling afraid as if something awful might happen: 3 = Nearly every day Total ALEKS-7 score (0-4 normal; 5-9 mild; 10-14 moderate; 15-21 severe): 21 Source: Developed by Drs. Khalif Rodriguez, Columba Bangura, Shyam Timmons and colleagues, with an educational jalil from [employer]. Review of Systems Const Denies chills, Reports fatigue, Denies fever(s) and Denies headache(s) ENT Denies dysphagia, Denies dizziness, Denies otalgia, Denies headache(s), Reports neck pain (chronic), Denies odynophagia and Denies sore throat Card Denies chest pain, Reports palpitations (occasionally) and Denies dyspnea Resp Denies chest congestion, Denies cough, Denies dyspnea and Denies wheezing GI Denies abdominal pain, Denies constipation, Denies dysphagia, Denies heartburn, Denies diarrhea, Denies nausea, Denies odynophagia and Denies vomiting Denies difficulty voiding, Denies nocturia, Denies dysuria and Denies urinary urgency Musc Reports back pain (chronic), Reports myalgias (diffuse), Reports arthralgias (involving multiple joints ), Reports neck pain (chronic) and Reports stiffness Skin/Breast Denies rash Neuro Denies dizziness and Denies headache(s) Psych Denies anxiety Endo Reports fatigue and Reports palpitations (occasionally) Loy/Lymph Denies easy bruising Aller/Immun Denies wheezing Physical exam (Primary Care) Vital Signs: Last Vital Signs Temp 97.1 F 07/13/25 15:10 Pulse 73 07/13/25 15:10 BP 126/88 07/13/25 15:10 Pulse Ox 98 07/13/25 15:10 Oxygen Delivery Method Room Air 07/13/25 15:10 BMI result Body Mass Index 37.7 Tobacco/Smoking Status: Tobacco use Status Tobacco use date assessed 07/13/25 07/13/25 15:19 Patient Tobacco Use Status Never used Tobacco 07/13/25 15:15 e-Cigarette/Vaping Use Never Used 07/13/25 15:15 PHQ-9: PHQ-9 Score PHQ-9: Total score 19 07/13/25 15:38 Depression Screening Interpretation: Positive Depression Screening Follow-up: Existing condition and In treatment Thrive Assessment: Date of Thrive Assessment Date Thrive assessed 10/05/24 07/13/25 15:15 Currently or been in a relationship where the following occur: No concerns reported Const General: no acute distress and alert HENMT Ears: TM's normal bilaterally and EAC's normal Throat: Yes posterior oropharynx normal and Yes tonsils normal Neck Neck: Yes supple Thyroid: Thyroid normal Lymphatic: no lymphadenopathy noted Resp Auscultation: clear to auscultation bilaterally, no crackles, no rales and no wheezes Cardio Rate: regular rate Rhythm: regular rhythm Heart sounds: no murmurs GI Palpation (GI): Soft to palpation and nontender Auscultation: normal bowel sounds General: Yes no CVA tenderness Back/Spine/Pelvis Back: no CVA tenderness Cervical Spine: Cervical spine tenderness Thoracic/Lumbar Spine: lumbar spinal tenderness Skin Rashes: no rashes Extrem General: Yes no clubbing, cyanosis or edema Results Reviewed Results Reviewed: Laboratory Tests 06/24/25 14:24 WBC 9.2 Hgb 11.6 L Hct 37.9 Plt Count 341 D Sodium 140 Potassium 4.3 D Creatinine 0.72 Estimated GFR > 60 Fasting Glucose 78 Calcium 9.5 D AST 23 ALT 13 Triglycerides 224 H Cholesterol 214 H LDL Cholesterol, Calc 117 H HDL Cholesterol 53 Coding Level of Care Code Est Pt Level 4 (72642) Diagnoses Hydronephrosis, bilateral N13.30 Ureteral stricture, left N13.5 Renal calculi N20.0 Pure hypercholesterolemia E78.00 Palpitations R00.2 Migraine without status migrainosus, not intractable, unspecified migraine type G43.909 Intractability: not intractable Migraine type: unspecified Status migrainosus presence: without status migrainosus Mild intermittent asthma without complication J45.20 Allergic rhinitis, unspecified seasonality, unspecified trigger J30.9 Allergic rhinitis seasonality: unspecified Allergic rhinitis trigger: unspecified Vitamin D deficiency E55.9 HLA-B27 spondyloarthropathy M47.899 Osteoarthritis of multiple joints, unspecified osteoarthritis type M15.9 Osteoarthritis type: unspecified Osteopenia of lumbar spine M85.88 Osteopenia location: lumbar spine Fibromyalgia M79.7 Insomnia, unspecified type G47.00 Insomnia type: unspecified Bipolar depression F31.9 Obesity (BMI 30-39.9) E66.9 Additional Codes PHQ-9 - 65431 - PHQ-9 Billing: Yes ([id number]) Assessment & Plan Assessment & Plan (1) Hydronephrosis, bilateral: Code(s): N13.30 - Unspecified hydronephrosis Category: Medical Plan: Her recent abdominal and pelvic CT done at the ER a few months ago in late February 2025 revealed the presence of a new right-sided hydronephrosis Her left-sided hydronephrosis appears unchanged from before Due to her new onset right-sided hydronephrosis, we referred her for urgent urologic consultation a few months ago - patient states that she has been going to Urology in [place] but we have not yet received any OV notes from them and will try to request for their office to send over their reports for review and documentation A repeat abdominal and pelvic CT done in April 2025 when patient went back to the ER for increasing abdominal pain revealed (+) SBO as well as the severe left and mild right hydronephrosis and bilateral ureterectasis without visible obstruction and possible cystitis (2) Ureteral stricture, left: Code(s): N13.5 - Crossing vessel and stricture of ureter without hydronephrosis Category: Medical Plan: She currently appears to only have about 45% of preserved left renal function with evidence of high-grade obstruction, likely due to the left ureteral stricture She eventually underwent diagnostic left RPG to further evaluate her left ureteral stricture and left hydronephrosis - retrograde pyelogram revealed (+) widely patent stricture and was negative for high-grade obstruction Follow up with [facility] as scheduled (3) Renal calculi: Code(s): N20.0 - Calculus of kidney Category: Medical Plan: S/P kidney stone removal and stent placement with urology on 05/23/2023 She had right stent insertion from 08/26/2024 to 09/30/2024 due to worsening right-sided hydronephrosis Follow up with urology as scheduled (4) Pure hypercholesterolemia: Code(s): E78.00 - Pure hypercholesterolemia, unspecified Category: Medical Plan: Results of her labs done a few weeks ago reviewed and discussed with patient Reinforced low cholesterol diet Continue Atorvastatin 20 mg QD Will recheck her labs and fasting lipids in 4 months for follow-up (5) Palpitations: Code(s): R00.2 - Palpitations Category: Medical Plan: Patient states that her palpitations have not been occurring as often lately Continue Metoprolol 25 mg BID Extended Holter monitor (3 days) and echocardiogram done back in February 2022 both came out normal Holter monitor showed baseline normal sinus rhythm with average heart beat of 77 beats per minute with no significant pauses or bradycardia noted. There was a total of 4322 PVCs accounting for 1.32% of total beats but no patient reported events noted She was seen by cardiology early last year and was reportedly reassured that her symptoms are primarily from her PVCs and she has no other abnormal cardiac issues or findings Have recommended weight loss and also low dose Metoprolol 25 mg BID, which she is currently still on and she appears to be doing well on the medication so far (6) Migraine: Code(s): G43.909 - Migraine, unspecified, not intractable, without status migrainosus Category: Medical Qualifiers: Intractability: not intractable Migraine type: unspecified Status migrainosus presence: without status migrainosus Qualified Code(s): G43.909 - Migraine, unspecified, not intractable, without status migrainosus Plan: Stable/controlled lately Reinforced avoidance of migraine triggers Continue Narariptan 2.5 mg once a day as needed and Vitamin B2 tablets 100 mg 2 times a day for headache prophylaxis Follow up with [facility] as scheduled (7) Mild intermittent asthma without complication: Code(s): J45.20 - Mild intermittent asthma, uncomplicated Category: Medical Plan: Controlled -? PFTs done a couple of years ago came back normal Continue Flovent HFA 220 mg 1 puff twice a day, Albuterol HFA 2 puffs 4 times a day as needed and Montelukast 10 mg 1 tablet QD (8) Allergic rhinitis: Code(s): J30.9 - Allergic rhinitis, unspecified Category: Medical Qualifiers: Allergic rhinitis seasonality: unspecified Allergic rhinitis trigger: unspecified Qualified Code(s): J30.9 - Allergic rhinitis, unspecified Plan: She continues to receive immunotherapy (Xolair) from her junior linux systems administrator Follow-up with junior linux systems administrator as scheduled (9) Vitamin D deficiency: Code(s): E55.9 - Vitamin D deficiency, unspecified Category: Medical Plan: Continue Vitamin D3 2000 units QD (10) HLA-B27 spondyloarthropathy: Code(s): M47.899 - Other spondylosis, site unspecified Category: Medical Plan: Reinforced activity and weight-lifting restrictions Continue Gabapentin 800 mg TID, Duloxetine 60 mg QD and Sulfasalazine 500 gm 2 tablets every 12 hours (has taken Humira in the past with poor response) Patient underwent bilateral diagnostic L3, L4, DRL5, MBB with Dr. Thomas on 05/03/2021 - she reportedly experienced significant pain relief and was then scheduled for bilateral L3 L4 DR L5 MBB RFA with sedation and flouroscopy but this was denied by her insurance Had a trial of SI joint injection with pain management in February 2023 with good results Follow-up with rheumatology and with [facility] as scheduled (11) Osteoarthritis of multiple joints: Code(s): M15.9 - Polyosteoarthritis, unspecified Category: Medical Qualifiers: Osteoarthritis type: unspecified Qualified Code(s): M15.9 - Polyosteoarthritis, unspecified Plan: Especially involving the right hip and both hands S/P total right hip arthroplasty in August 2023 Continue Nabumetone 750 mg BID PRN Follow up with rheumatology as scheduled (12) Osteopenia: Comment: T scores 03/2023: Femur 0.4, femoral neck-0.7, LS -1.8 FRAX: 4.1/0.1 Code(s): M85.80 - Other specified disorders of bone density and structure, unspecified site Category: Medical Qualifiers: Osteopenia location: lumbar spine Qualified Code(s): M85.88 - Other specified disorders of bone density and structure, other site Plan: She had a BASELINE BMD done on 03/30/2023, which revealed (+) osteopenia based on the lowest T-score value of -1.8 in the lumbar spine Her FRAX score is 4.1% She is encouraged to continue daily Vitamin D and Calcium supplements and to try to exercise and stay as active as she can regularly Will continue to monitor her BMD every 2 to 3 years (13) Fibromyalgia: Code(s): M79.7 - Fibromyalgia Category: Medical Plan: Patient is again encouraged to try to stay active and exercise regularly to help manage her fibromyalgia symptoms better Continue Gabapentin 800 mg TID and Duloxetine 60 mg QD (14) Insomnia: Code(s): G47.00 - Insomnia, unspecified Category: Medical Qualifiers: Insomnia type: unspecified Qualified Code(s): G47.00 - Insomnia, unspecified Plan: Sleep hygiene reinforced Continue Zolpidem 10 mg once a day at bedtime as needed (15) Bipolar depression: Code(s): F31.9 - Bipolar disorder, unspecified Category: Medical Plan: Continue Clonazepam 1 mg twice a day as needed and Citalopram 10 mg once a day Follow-up with Psychiatry as scheduled - has been seeing Juan C Garcia of [facility] since 01/11/2022 (16) Obesity (BMI 30-39.9): Code(s): E66.9 - Obesity, unspecified Category: Medical Plan: Reinforced diet; exercise and weight options are limited and not practical due to her multiple physical issues and comorbidities Plan Follow-up in 4 months Orders: Orders Complete Blood Count Auto Diff 4 Months D64.9 - Anemia, unspecified Comprehensive [place]. Panel Fast 4 Months E78.00 - Pure hypercholesterolemia, unspecified TSH reflex Free T4 4 Months E78.00 - Pure hypercholesterolemia, unspecified UA CC w/rflx Micro + Cult 4 Months R30.0 - Dysuria Vitamin D 25-OH Total 4 Months E55.9 - Vitamin D deficiency, unspecified Lipid Panel 4 Months E78.00 - Pure hypercholesterolemia, unspecified
--- OUTSIDE RECORDS SUMMARY | 2025-07-13 23:51 | XMS_ITS | Clinical Summary ---
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 Name Role Phone Christ Silva MD Primary Care Provider Allergies No known active allergies Social History [...] 1-dose series) 2021 Breast Cancer Screening 12/20/2022 12/21/19 21, 08/22/2019, 03/28/2018 Cholesterol Screening (Lipid Panel) 05/24/2024 [...] Procedure Name Priority Date/Time Associated Diagnosis Comments [facility] SCREENING DIGITAL Routine 12/20/2020 7:17 PM EDT Encounter for screening mammogram for malignant neoplasm of breast from Last 3 Months or Most Recently Relevant to Health Maintenance Results * [facility] SCREENING DIGITAL (12/20/2020 7:17 PM EDT) Anatomical Region Laterality Modality Mammography 12/20/2020 2:13 PM EDT Narrative 12/20/2020 7:17 PM EDT [facility] Diagnostic Imaging Department [address] [place], [place] [id number] Patient: ELISHA MILLSO.B./Age/Sex: 1970 - 50 - F Unit#: [id number] Location/Status: SPDIMAM/REG CLI [facility]em[facility] Order[facility] Physician: CHRIST SILVA MD Leroy Screening Digital - 12/20/20 - 1508 History: Bilateral breast cancer screening. Technique: Digital mammography. Conventional CC and MLO projections with tomosynthesis MLO views and computer aided detection Findings: Comparison:[facility] 08/21/2019, dating back to 03/09/2011. Breast tissue is mostly fatty replaced (category a density) bilaterally (as calculated by [employer] software). There are benign calcifications on the right. There is no suspicious group of microcalcification, no suspicious mass, architectural distortion or suspicious asymmetry. Impression: No evidence of malignancy. BIRADS category 2, benign findings, 3342F 16199, [id number] Note: Patient information entered into a reminder system with a target due date for the next mammogram; PQRI II 7012F Dictating Physician: MIKEY ROMAN MD Electronically Signed by: MIKEY ROMAN MD Dic Date/Time: 12/20/201916 Sign date/Time: 12/20/201916 Procedure Note Mikey Roman MD - 07/25/2022 [facility] Diagnostic Imaging Department [address] [place] [address] Patient: ELISHA MILLS.O.B./Age/Sex: 1970 - 50 - F Unit#: [id number] [facility] CLI Mnemonic/Ordering Site: [facility] Ordering Physician: CHRIST SILVA MD Leroy Screening Digital - 12/20/20 - 1508 History: Bilateral breast cancer screening. Technique: Digital mammography. Conventional CC and MLO projections with tomosynthesis MLO views and computer aided detection Findings: Comparison:[facility] 08/21/2019, dating back to 03/09/2011. Breast tissue is mostly fatty replaced (category a density) bilaterally(as calculated by [employer] software). There are benign calcificationson the right. There is no suspicious group of microcalcification, no suspiciousmass, architectural distortion or suspicious asymmetry. Impression: No evidence of malignancy. 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
--- OUTSIDE RECORDS SUMMARY | 2025-07-13 23:51 | XMS_ITS | Encounter Summary ---
Author Organization [facility] Address [address] [place] [address] Care Team Providers Care Portfolio Consultant Name Role Phone Christ Goodwin MD Primary Care Provider [phone] Encounter Details Date Type Department Care Team (Late st Contact Info) Description 01/30/2025 Lab Requisition [facility] - Main Lab [address] [facility] [place] [address] Ajay Leonard PA [address] [place] [address] Urinary tract infection, site not [...] Urine No growth 01/31/2025 12:44 PM EDT [facility] Urine Urine specimen obtained by clean catch procedure / Unknown 01/30/2025 01/30/2025 5:39 PM EDT us [facility] MICROBIOLOGY - GENERAL ORD ERABLES Final Result [facility] ([facility] [address] [place] [address], documented in this encounter Visit Diagnoses Diagnosis Urinary tract infection, site not specified documented in this encounter Care Teams Portfolio Consultant Relationship Specialty Start Date End Date Christ Goodwin MD [address] [place] [address] Dr [address] [place] PCP - General Internal Medicine 07/01/24 documented as of this encounter
== END 2025-07-13 15:41 | disposition home or self-care (01) ==
LOC: HO.HMCH 14:41
PROVIDERS: PCP Internal Medicine; Visit Provider Internal Medicine
DX: N13.30 Unspecified hydronephrosis (principal); F31.9 Bipolar disorder, unspecified; N13.5 Crossing vessel and stricture of ureter without hydronephrosis; N20.0 Calculus of kidney; E78.00 Pure hypercholesterolemia, unspecified; R00.2 Palpitations; G43.909 Migraine, unspecified, not intractable, without status migrainosus; J45.20 Mild intermittent asthma, uncomplicated; J30.9 Allergic rhinitis, unspecified; E55.9 Vitamin D deficiency, unspecified; M47.899 Other spondylosis, site unspecified; M15.9 Polyosteoarthritis, unspecified

== ENCOUNTER → 2025-07-13 14:39 | Outpatient (BNVA) | payer OTHER, SELFPAY | PROVIDERS: PCP Internal Medicine; Visit Provider Internal Medicine | DX: N20.0 Calculus of kidney (principal); N13.30 Unspecified hydronephrosis; N13.5 Crossing vessel and stricture of ureter without hydronephrosis; E78.00 Pure hypercholesterolemia, unspecified; R00.2 Palpitations; G43.909 Migraine, unspecified, not intractable, without status migrainosus; J45.20 Mild intermittent asthma, uncomplicated; J30.9 Allergic rhinitis, unspecified; E55.9 Vitamin D deficiency, unspecified; M47.899 Other spondylosis, site unspecified; M15.9 Polyosteoarthritis, unspecified; M85.88 Other specified disorders of bone density and structure, other site; M79.7 Fibromyalgia; G47.00 Insomnia, unspecified; F31.9 Bipolar disorder, unspecified; E66.9 Obesity, unspecified; Z68.37 Body mass index [BMI] 37.0-37.9, adult | CPT/HCPCS: 96127; 99212 ==

== ENCOUNTER → 2025-07-24 10:54 | Day surgery (SDC) | payer OTHER, SELFPAY ==
--- OUTSIDE RECORDS SUMMARY | 2025-06-25 20:29 | XMS_ITS | Clinical Summary ---
Author Organization [facility] Address [address] [place] [address] Phone Care Team Providers Care Tetryl Screen Operator Name Role Phone Christ Silva MD Primary Care Provider [phone] Allergies No known active allergies Social History [...] 1990 Cervical Cancer Screening: Pap Smear 02/18/1992 RSV Immunization Adult Patients (1 - Risk 50-74 years 1-dose series) 2021 Breast Cancer Screening 12/20/2022 12/21/19, 08/22/2019, 03/28/2018 [...] Procedure Name Priority Date/Time Associated Diagnosis Comments [facility] SCREENING DIGITAL Routine 12/20/2020 7:17 PM EDT Encounter for screening mammogram for malignant neoplasm of breast from Last 3 Months or Most Recently Relevant to Health Maintenance Results * LEROY SCREENING DIGITAL (12/20/2020 7:17 PM EDT) Anatomical Region Laterality Modality Mammography 12/20/2020 2:13 PM EDT Narrative 12/20/2020 7:17 PM EDT [facility] Diagnostic Imaging Department [address] [place], [place] [id number] Patient: ELISHA MILLSO.B./Age/Sex: 1970 - 50 - F Unit#: [id number] Location/Status: SPDIMAM/REG CLI Mnemonic/Ordering [facility] Ordering Physician: CHRIST SILVA MD Leroy Screening Digital - 12/20/20 - 1508 History: Bilateral breast cancer screening. Technique: Digital mammography. Conventional CC and MLO projections with tomosynthesis MLO views and computer aided detection Findings: Comparison:[facility] 08/21/2019, dating back to 03/09/2011. Breast tissue is mostly fatty replaced (category a density) bilaterally (as calculated by [employer] software). There are benign calcifications on the right. There is no suspicious group of microcalcification, no suspicious mass, architectural distortion or suspicious asymmetry. Impression: No evidence of malignancy. BIRADS category 2, benign findings, 3342F 35345, 07234 Note: Patient information entered into a reminder system with a target due date for the next mammogram; PQRI II 7007F Dictating Physician: MIKEY ROMAN MD Electronically Signed by: MIKEY ROMAN MD Dic Date/Time: 12/20/201916 Sign date/Time: 12/20/201916 Procedure Note Mikey Roman MD - 07/25/2022 [facility] Diagnostic Imaging Department [address] [place] [address] Patient: ELISHA MILLS.O.B./Age/Sex: 1970 - 50 - F Unit#: [id number] [facility] CLI Mnemonic/Ordering Site: [facility] Ordering Physician: CHRIST SILVA MD Leroy Screening Digital - 12/20/20 - 1508 History: Bilateral breast cancer screening. Technique: Digital mammography. Conventional CC and MLO projections with tomosynthesis MLO views and computer aided detection Findings: Comparison:[facility] 08/21/2019, dating back to 03/09/2011. Breast tissue is mostly fatty replaced (category a density) bilaterally(as calculated by [employer] software). There are benign calcificationson the right. There is no suspicious group of microcalcification, no suspiciousmass, architectural distortion or suspicious asymmetry. Impression: No evidence of malignancy. BIRADS category 2, benign findings, 3342F 33180, 23965 Note: Patient information entered into a reminder system with a targetdue date for the next mammogram; PQRI II 7020F Dictating Physician: MIKEY ROMAN MD Electronically Signed by: MIKEY ROMAN MD Dic Date/Time: 12/20/201916 Sign date/Time: 12/20/201916 Christ Silva MD IMG BI PROCEDURES Final Resu lt from Last 3 Months or Most Recently Relevant to Health Maintenance Insurance [facility] [place]ICAID - [place] Care Teams Tetryl Screen Operator Relationship Specialty Start Date End Date Christ Silva MD [address] [place] [address] [address] [place] PCP - General Internal Medicine 07/01/24
--- OUTSIDE RECORDS SUMMARY | 2025-06-25 20:29 | XMS_ITS | Encounter Summary ---
Author Organization [facility] Address [address] [place] [address] Care Team Providers Care Financial Aid Counselor Name Role Phone Christ Goodwin MD Primary Care Provider Encounter Details Date Type Department Care Team (Late st Contact Info) Description 01/30/2025 Lab Requisition [facility] - Main Lab [address] [place] [address] Ajay Leonard PA [address] [place] [address] Urinary tract infection, site not [...] Urine No growth 01/31/2025 12:44 PM EDT [facility] ([facility]) [facility] Urine Urine specimen obtained by clean catch procedure / Unknown 01/30/2025 01/30/2025 5:39 PM EDT us [facility]ay [facility] MICROBIOLOGY - GENERAL ORD ERABLES Final Result [facility] ([facility] H[facility] LAB [address] [place] [address], documented in this encounter Visit Diagnoses Diagnosis Urinary tract infection, site not specified documented in this encounter Care Teams Financial Aid Counselor Relationship Specialty Start Date End Date Christ Goodwin MD [address] [place] [address] Dr [address] [place] PCP - General Internal Medicine 07/01/24 documented as of this encounter
--- NOTE | 2025-07-21 10:23 | HO.ANESPROP2 ---
Documented by User: Gisela Conway NP 07/21/25 10:26 HPI - Anesthesia Eval Consult details Narrative: 55yo F for Bilateral Diagnostic L3-L4-DR L5 Medial Branch Block s/p EGD 06/2025 with MAC H/O palpitations: on metoprolol -Extended Holter (3 days) and echocardiogram done back in February 2022 unremarkable. Holter monitor showed baseline normal sinus rhythm with average heart beat of 77 beats per minute with no significant pauses or bradycardia noted. There was a total of 4322 PVCs accounting for 1.32% of total beats but no patient reported events noted - Saw [facility] cardiology 02/2023, reassured that her symptoms are primarily from her PVCs and she has no other abnormal cardiac issues or findings. Recommended weight loss and also low dose Metoprolol 25 mg BID, which she is currently still on and she appears to be doing well on the medication so far PMFSH Active Problems Active Problems: All Active Problems Gastritis (Acute) Hydronephrosis of right kidney (Acute) Adhesion, postoperative (Acute) Benign paroxysmal vertigo, unspecified ear (Acute) Anemia (Acute) Cold intolerance (Acute) HSV-1 (herpes simplex virus 1) infection (Acute) Insomnia (Acute) Osteoarthritis of multiple joints (Acute) Renal calculi (Acute) Trigger thumb, right thumb (Acute) Spondylosis of lumbar region without myelopathy or radiculopathy (Acute) Lumbar degenerative disc disease (Acute) Chronic right sacroiliac joint pain (Acute) Migraine with aura (Acute) Sleep difficulties (Acute) Snoring (Acute) Fatigue (Acute) Status post total hip replacement, right (Acute) Intractable nausea and vomiting (Acute) Ureteral stricture, left (Acute) Leukocytosis (Acute) Abnormal CT scan (Acute) PVC (premature ventricular contraction) (Acute) Palpitations (Acute) Cervicalgia (Acute) Osteoarthritis of right hip (Acute) Bilateral lumbar radiculopathy (Acute) Ingrown toenail of both feet (Acute) Compression fracture of body of thoracic vertebra (Acute) Right sciatic nerve pain (Acute) Osteopenia (Acute) Encounter for medication monitoring (Acute) Fibromyalgia (Acute) Obesity (BMI 30-39.9) (Acute) Bipolar depression (Acute) Vitamin D deficiency (Acute) Migraine (Acute) Allergic rhinitis (Acute) Mild intermittent asthma without complication (Acute) Pure hypercholesterolemia (Acute) Past Medical History Medical History Renal calculi Insomnia Osteoarthritis of multiple joints Hydronephrosis, bilateral Osteopenia Sacroiliac joint pain Encounter for medication monitoring Palpitations Gastritis Fibromyalgia Hx of small bowel obstruction Abdominal pain Obesity (BMI 30-39.9) Bipolar depression Vitamin D deficiency Migraine Allergic rhinitis Mild intermittent asthma without complication Pure hypercholesterolemia Primary osteoarthritis of right hip Family History Family History Father Kidney problem Diabetes Mother Kidney malignancy Diabetes Brother Asthma Diabetes Family history of problems with anesthesia: No Surgical History Surgical History S/P ureteral stent placement History of total hip arthroplasty (~08/15/23) S/P cystourethroscopy with dilation of urethral stricture (~07/21/20) History of esophagogastroduodenoscopy (EGD) Hx of unilateral oophorectomy Hx of colonoscopy Hx of cholecystectomy Hx of cystoscopy History of extraction of renal calculus History of carpal tunnel surgery History of hand surgery History of hysterectomy History of Problems with Anesthesia: No Social History Social History Household Members: Significant Other Housing: House Are you a primary mall plant caretaker to a significant other at home: No Do you presently have visiting nurse or other home services: No Alcohol intake: never Comment: counts correct Patient Tobacco Use Status: Never used Tobacco e-Cigarette/Vaping Use: Never Used Second Hand Smoke Exposure: No Advance Directives: No Advance Directives Information Provided: Yes Advance Directives Date on File: 08/08/23 service: No Current occupational status: disabled Cognitive needs: No Hearing needs: No Vision needs: Yes Meds Allergies Allergy/AdvReac Type Severity Reaction Status Date / Time hazelnut Allergy Severe Itching, Verified 07/13/25 15:28 coughing, and hives Penicillins (PENICILLINS) Allergy Severe HIVES Verified 07/13/25 15:28 birch Allergy Intermediate Itching Verified 07/13/25 15:28 Iodinated Contrast Media (IV Allergy Intermediate HIVES Verified 07/13/25 15:28 CONTRAST) peanut (PEANUTS) Allergy Intermediate HIVES Verified 07/13/25 15:28 shellfish derived (SHELLFISH Allergy Intermediate HIVES Verified 07/13/25 15:28 DERIVED) almond Allergy Mild Hives Verified 07/13/25 15:28 cat dander Allergy Mild cough/hives Verified 07/13/25 15:28 dog dander Allergy Mild cough/hives Verified 07/13/25 15:28 pollen extracts Allergy Mild runny Verified 07/13/25 15:28 nose, itchy eyes Home Medications ?Medication ?Instructions ?Recorded ?Confirmed ?Last Taken ?Type cetirizine 10 mg tablet (Zyrtec) 10 mg PO DAILY PRN allergies 07/06/20 07/22/25 08/26/23 History clonazepam 1 mg tablet (Klonopin) 1 mg PO BID PRN Anxiety 07/06/20 07/22/25 06/11/25 History montelukast 10 mg tablet 10 mg PO BEDTIME 07/06/20 07/22/25 04/23/25 History (Singulair) cyclosporine 0.05 % eye drops in a 1 drp ophthalmic (eye) Q12H 01/06/21 07/22/25 04/23/25 History dropperette (Restasis) epinephrine 0.3 mg/0.3 mL 0.3 mg IM ONCE PRN anaphylaxis 09/18/22 07/22/25 08/26/23 History injection, auto-injector bimatoprost 0.01 % eye drops 1 drp ophthalmic (eye) BEDTIME 03/26/23 07/22/25 04/23/25 History (Lumigan) omalizumab 150 mg subcutaneous 150 mg subcut Q4W 05/02/23 07/22/25 04/16/25 History solution (Xolair) docusate sodium 100 mg capsule 100 mg PO BID PRN Constipation 08/27/23 07/22/25 04/23/25 History mometasone 100 mcg/actuation HFA 1 puff inhalation BID PRN breathing 08/27/23 07/22/25 Unknown History aerosol inhaler (Asmanex HFA) cholecalciferol (vitamin D3) 50 50 mcg PO DAILY 11/12/23 07/22/25 04/23/25 History mcg (2,000 unit) capsule bupropion HCl 300 mg 24 hr tablet, 300 mg PO DAILY 10/07/24 07/22/25 04/23/25 History extended release dorzolamide-timolol (PF) 2 %-0.5 % 1 drp ophthalmic (eye) BID 10/07/24 07/22/25 04/23/25 History eye drops in a dropperette (Cosopt (PF)) brimonidine 0.2 % eye drops 1 drp ophthalmic (eye) BID 04/24/25 07/22/25 04/23/25 History ketotifen fumarate 0.025 % (0.035 1 - 2 drp ophthalmic (eye) BID 04/24/25 07/22/25 04/23/25 History %) eye drops [id number] 1 cap PO DAILY@0800 04/24/25 07/22/25 04/23/25 History (pork)36,000-114,000-180k unit capsule,del rel (Creon) magnesium glycinate 100 mg PO BEDTIME 04/24/25 07/22/25 04/23/25 History naproxen sodium 220 mg tablet 220 mg PO BID PRN Pain 04/24/25 07/22/25 Unknown History (Aleve) Exam Pertinent Lab Results Pertinent Lab Results: Laboratory Tests 08/04/23 06/24/25 05:08 14:24 WBC 9.1 9.2 Hgb 10.6 L D 11.6 L Hct 33.8 L D 37.9 Plt Count 345 341 D Sodium 142 140 Potassium 3.7 4.3 D Chloride 109 H 110 H Carbon Dioxide 22 20 L BUN 12 13 Creatinine 0.84 0.72 Assessment and Plan Assessment Anesthesia Assessment: Chart Reviewed Final Anesthetic Review Family History of Problems with Anesthesia: No History of Problems with Anesthesia: No Documented by User: Ya Olivas MD 07/24/25 11:25 [facility] Past Medical History Medical History Renal calculi Insomnia Osteoarthritis of multiple joints Hydronephrosis, bilateral Osteopenia Sacroiliac joint pain Encounter for medication monitoring Palpitations Gastritis Fibromyalgia Hx of small bowel obstruction Abdominal pain Obesity (BMI 30-39.9) Bipolar depression Vitamin D deficiency Migraine Allergic rhinitis Mild intermittent asthma without complication Pure hypercholesterolemia Primary osteoarthritis of right hip Family History Family History Father Kidney problem Diabetes Mother Kidney malignancy Diabetes Brother Asthma Diabetes Surgical History Surgical History S/P ureteral stent placement History of total hip arthroplasty (~08/15/23) S/P cystourethroscopy with dilation of urethral stricture (~07/21/20) History of esophagogastroduodenoscopy (EGD) Hx of unilateral oophorectomy Hx of colonoscopy Hx of cholecystectomy Hx of cystoscopy History of extraction of renal calculus History of carpal tunnel surgery History of hand surgery History of hysterectomy Social History Social History Household Members: Significant Other Housing: House Are you a primary mall plant caretaker to a significant other at home: No Do you presently have visiting nurse or other home services: No Alcohol intake: never Comment: counts correct Patient Tobacco Use Status: Never used Tobacco e-Cigarette/Vaping Use: Never Used Second Hand Smoke Exposure: No Advance Directives: No Advance Directives Information Provided: Yes Advance Directives Date on File: 08/08/23 service: No Current occupational status: disabled Cognitive needs: No Hearing needs: No Vision needs: Yes Meds Allergies Allergy/AdvReac Type Severity Reaction Status Date / Time hazelnut Allergy Severe Itching, Verified 07/13/25 15:28 coughing, and hives Penicillins (PENICILLINS) Allergy Severe HIVES Verified 07/13/25 15:28 birch Allergy Intermediate Itching Verified 07/13/25 15:28 Iodinated Contrast Media (IV Allergy Intermediate HIVES Verified 07/13/25 15:28 CONTRAST) peanut (PEANUTS) Allergy Intermediate HIVES Verified 07/13/25 15:28 shellfish derived (SHELLFISH Allergy Intermediate HIVES Verified 07/13/25 15:28 DERIVED) almond Allergy Mild Hives Verified 07/13/25 15:28 cat dander Allergy Mild cough/hives Verified 07/13/25 15:28 dog dander Allergy Mild cough/hives Verified 07/13/25 15:28 pollen extracts Allergy Mild runny Verified 07/13/25 15:28 nose, itchy eyes Home Medications ?Medication ?Instructions ?Recorded ?Confirmed ?Last Taken ?Type cetirizine 10 mg tablet (Zyrtec) 10 mg PO DAILY PRN allergies 07/06/20 07/22/25 08/26/23 History clonazepam 1 mg tablet (Klonopin) 1 mg PO BID PRN Anxiety 07/06/20 07/22/25 06/11/25 History montelukast 10 mg tablet 10 mg PO BEDTIME 07/06/20 07/22/25 04/23/25 History (Singulair) cyclosporine 0.05 % eye drops in a 1 drp ophthalmic (eye) Q12H 01/06/21 07/22/25 04/23/25 History dropperette (Restasis) epinephrine 0.3 mg/0.3 mL 0.3 mg IM ONCE PRN anaphylaxis 09/18/22 07/22/25 08/26/23 History injection, auto-injector bimatoprost 0.01 % eye drops 1 drp ophthalmic (eye) BEDTIME 03/26/23 07/22/25 04/23/25 History (Lumigan) omalizumab 150 mg subcutaneous 150 mg subcut Q4W 05/02/23 07/22/25 04/16/25 History solution (Xolair) docusate sodium 100 mg capsule 100 mg PO BID PRN Constipation 08/27/23 07/22/25 04/23/25 History mometasone 100 mcg/actuation HFA 1 puff inhalation BID PRN breathing 08/27/23 07/22/25 Unknown History aerosol inhaler (Asmanex HFA) cholecalciferol (vitamin D3) 50 50 mcg PO DAILY 11/12/23 07/22/25 04/23/25 History mcg (2,000 unit) capsule bupropion HCl 300 mg 24 hr tablet, 300 mg PO DAILY 10/07/24 07/22/25 04/23/25 History extended release dorzolamide-timolol (PF) 2 %-0.5 % 1 drp ophthalmic (eye) BID 10/07/24 07/22/25 04/23/25 History eye drops in a dropperette (Cosopt (PF)) brimonidine 0.2 % eye drops 1 drp ophthalmic (eye) BID 04/24/25 07/22/25 04/23/25 History ketotifen fumarate 0.025 % (0.035 1 - 2 drp ophthalmic (eye) BID 04/24/25 07/22/25 04/23/25 History %) eye drops [id number] 1 cap PO DAILY@0800 04/24/25 07/22/25 04/23/25 History (pork)36,000-114,000-180k unit capsule,del rel (Creon) magnesium glycinate 100 mg PO BEDTIME 04/24/25 07/22/25 04/23/25 History naproxen sodium 220 mg tablet 220 mg PO BID PRN Pain 04/24/25 07/22/25 Unknown History (Aleve) Exam Airway Mallampati Class: III TM Dist: <=3cm Neck ROM: Full Heart: rrr Lungs: cta Assessment and Plan Assessment Anesthesia Assessment: Anesthesia Plan Discussed Final Anesthetic Review NPO: Yes ASA Class: III Final Preanesthetic Review: No Changes in Pt Med Stat, Meds/Allgs Chart Reviewed, Consent Obtained/Reviewed and Anes Risks/Benef Reviewed Patient Risk: Intermediate Procedure Risk: Low Anesthetic Plan Anesthetic Plan: MAC: and Agree w/ Assess. and Plan Disposition: Standard PACU
[2025-07-22 13:47] VITALS: BMI 33.1
--- NOTE | 2025-07-24 12:56 | PC.NURSE ---
pt cancelled no anesthesia available for procedure dr gonzales at bedside speaking to patient
--- NOTE | 2025-07-24 12:59 | PC.NURSE ---
pt offered local pt declined
== END ==
LOC: HO.SSS 10:55
PROVIDERS: PCP Internal Medicine; Visit Provider Anesthesiology
DX: M47.816 Spondylosis without myelopathy or radiculopathy, lumbar region (principal); Z53.8 Procedure and treatment not carried out for other reasons

== ENCOUNTER 2025-07-28 13:43 | Outpatient (AMB) | payer OTHER, SELFPAY ==
--- OUTSIDE RECORDS SUMMARY | 2025-07-25 23:59 | XMS_ITS | Continuity of Care Document ---
Author Organization [facility] Address [address] [place] [id number] Care Team Providers Care Projection Technician Name Role Phone Christ Goodwin MD Primary Care Physician [phone] Encounter [facility] Date(s): 06/25/25 - 07/25/25 [facility] [address] [place] [address] Encounter Type: Triage Allergies, Adverse Reactions, Alerts Substance Criticality Severity Reaction Reaction Severity Status penicillin rash Active shellfish itch Active Contrast Dye 1, 2 itching Ac tive Peanuts itch Active 1reaction on 12/03/2013 2itchy tongue and hives-treated with benedryl Immunizations Given and Recorded Vaccine Date Status Refusal Reason pneumococcal 23-valent vaccine 04/09/17 Given Medications Asmanex HFA 100 mcg/inh inhalation aerosol INHALE 1 PUFF 2 TIMES A DAY Start Date: 08/26/24 Status: Ordered Medication Dispense Status: Completed Total Allowed Fills: 1 Fills Dispensed: 0 Aspercreme with Lidocaine 4% topical cream 1 applicator, Topically, 3 times a day, PRN Pain , Moderate, 0 Refills, Maintenance, 04/08/17 5:48:22AM EDT Start Date: 04/08/17 Status: Ordered Medication Dispense Status: Completed Total Allowed Fills: 1 Fills Dispensed: 0 atorvastatin 20 mg oral tablet TAKE ONE TABLE EVERY DAY BY MOUTH. Start Date: 08/26/24 Status: Ordered Medication Dispense Status: Completed Total Allowed Fills: 1 Fills Dispensed: 0 BACLOFEN 20 MG TABLET BACLOFEN 20 MG TABLET, 0 Refills, Maintenance, 08/26/24 4:10:00 AM EST Start Date: 08/26/24 Status: Ordered Medication Dispense Status: Completed Total Allowed Fills: 1 Fills Dispensed: 0 buPROPion 300 mg/24 hours (XL) oral tablet, extended release TAKE 1 TABLET BY MOUTH EVERY DAY IN THE MORNING Start Date: 08/26/24 Status: Ordered Medication Dispense Status: Completed Total Allowed Fills: 1 Fills Dispensed: 0 cetirizine 10 mg oral tablet TAKE 1 TABLET DAILY Start Date: 08/26/24 Status: Ordered Medication Dispense Status: Completed Total Allowed Fills: 1 Fills Dispensed: 0 clindamycin 300 mg oral capsule TAKE 2 CAPSULES BY MOUTH 1 HOUR PRIOR TO DENTAL WORK FOR 1 DAY Start Date: 08/26/24 Status: Ordered Medication Dispense Status: Completed Total Allowed Fills: 1 Fills Dispensed: 0 clonazePAM 1 mg oral tablet TAKE 1 TABLET BY MOUTH TWICE A DAY NEEDED Start Date: 08/26/24 Status: Ordered Medication Dispense Status: Completed Total Allowed Fills: 1 Fills Dispensed: 0 clotrimazole 1% topical ointment 1 application, Topically, 2 times a day, for 7 days, # 56.7 Gm, 0 Refills, Acute 07/31/25 4:32:00 PM EST, 07/24/25 4:32:00 PM EST, Ointment, [facility]/pharmacy #[id number], Partial fill upon patient request if the prescription is for a schedule II opioid drug., 1 application Topically 2 times a day,x7 days, 153, cm, 07/22/25 14:21:00 EST, Height, 89.3, kg, 07/22/25 14:21:00 EST, Dry Weight Start Date: 07/24/25 Stop Date: 07/31/25 Status: Ordered Medication Dispense Status: Completed Quantity: 56.7 Unit: g Total Allowed Fills: 1 Fills Dispensed: 0 duloxetine 60 mg oral enteric coated capsule TAKE 1 CAPSULE BY MOUTH TWICE A DAY Start Date: 08/26/24 Status: Ordered Medication Dispense Status: Completed Total Allowed Fills: 1 Fills Dispensed: 0 famotidine 20 mg oral tablet TAKE 1 TABLET BY MOUTH EVERY DAY AT BEDTIME FOR HEARTBURN Start Date: 08/26/24 Status: Ordered Medication Dispense Status: Completed Total Allowed Fills: 1 Fills Dispensed: 0 Flonase 50 mcg/inh nasal spray Daily, 0 Refills, Maintenance, 11/28/18 2:28:23 PM EDT Start Date: 11/28/18 Status: Ordered Medication Dispense Status: Completed Total Allowed Fills: 1 Fills Dispensed: 0 Flovent 110 mcg Inhaler HFA 2 prffs, Inhalation, Daily, Maintenance, 04/24/14 8:53:21 AM EDT Start Date: 04/24/14 Status: Ordered Medication Dispense Status: Completed Total Allowed Fills: 1 Fills Dispensed: 0 gabapentin 800 mg oral tablet TAKE 1 TABLET BY MOUTH EVERY 8 HOURS Start Date: 08/26/24 Status: Ordered Medication Dispense Status: Completed Total Allowed Fills: 1 Fills Dispensed: 0 Imodium A-D 2 mg oral tablet 2 mg, 1, tablet, By Mouth, Every 4 hours, Refills 0, Maintenance, 12/14/20 3:37:00 PM EDT, Partial fill upon patient request if the prescription is for a schedule II opioid drug. Start Date: 12/14/20 Status: Ordered Medication Dispense Status: Completed Total Allowed Fills: 1 Fills Dispensed: 0 iron 27mg iron 27mg, Refills 0, Maintenance, 12/14/20 3:38:00 PM EDT, Supply Start Date: 12/14/20 Status: Ordered Medication Dispense Status: Completed Total Allowed Fills: 1 Fills Dispensed: 0 Lumigan 0.01% ophthalmic solution INSTILL 1 DROP INTO BOTH EYES EVERY DAY AT NIGHT Start Date: 08/26/24 Status: Ordered Medication Dispense Status: Completed Total Allowed Fills: 1 Fills Dispensed: 0 Mag64 oral delayed release tablet TAKE 1 TABLET BY MOUTH AT BEDTIME Start Date: 08/26/24 Status: Ordered Medication Dispense Status: Completed Total Allowed Fills: 1 Fills Dispensed: 0 montelukast 10 mg oral tablet 1 TABLET BEFORE BED Start Date: 08/26/24 Status: Ordered Medication Dispense Status: Completed Total Allowed Fills: 1 Fills Dispensed: 0 naloxone 4 mg/0.1 mL nasal spray 0 Refills, Maintenance, 08/26/24 4:13:00 AM EST, Partial fill upon patient request if the prescription is for a schedule II opioid drug. Start Date: 08/26/24 Status: Ordered Medication Dispense Status: Completed Total Allowed Fills: 1 Fills Dispensed: 0 Nurtec ODT 75 mg oral tablet, disintegrating 75 MG ORALLY ONCE NEEDED FOR MIGRAINE HEADACHE FOR 30 DAYS, MAX DAILY DOSE: 1 TAB Start Date: 08/26/24 Status: Ordered Medication Dispense Status: Completed Total Allowed Fills: 1 Fills Dispensed: 0 ondansetron 4 mg oral tablet, disintegrating 1 tablet = 4 mg, By Mouth, 3 times a day, 0 Refills, Maintenance, 06/05/25 1:16:00 PM EDT, Partial fill upon patient request if the prescription is for a schedule II opioid drug. Start Date: 06/05/25 Status: Ordered Medication Dispense Status: Completed Total Allowed Fills: 1 Fills Dispensed: 0 pantoprazole 40 mg oral delayed release tablet TAKE 1 TABLET BY MOUTH EVERY DAY IN THE MORNING Start Date: 08/26/24 Status: Ordered Medication Dispense Status: Completed Total Allowed Fills: 1 Fills Dispensed: 0 Refresh - solution 1 drops, Eyes, Both, Daily at bedtime, 0 Refills, Maintenance, 04/08/17 5:47:13 AM EDT Start Date: 04/08/17 Status: Ordered Medication Dispense Status: Completed Total Allowed Fills: 1 Fills Dispensed: 0 Restasis 0.05% ophthalmic emulsion 1 drops, Eyes, Both, Every 12 hours, 0 Refills, Maintenance, 04/08/17 5:46:28 AM EDT Start Date: 04/08/17 Status: Ordered Medication Dispense Status: Completed Total Allowed Fills: 1 Fills Dispensed: 0 riboflavin 400 mg oral tablet TAKE 1 TABLET BY MOUTH EVERY DAY Start Date: 08/26/24 Status: Ordered Medication Dispense Status: Completed Total Allowed Fills: 1 Fills Dispensed: 0 traMADol 50 mg oral tablet TAKE 1 TABLET BY MOUTH TWICE A DAY Start Date: 08/26/24 Status: Ordered Medication Dispense Status: Completed Total Allowed Fills: 1 Fills Dispensed: 0 Travatan Z 0.004% ophthalmic solution 1 drops, Daily before dinner, 0 Refills, Maintenance, 12/14/20 3:37:00 PM EDT, Partial fill upon patient request if the prescription is for a schedule II opioid drug. Start Date: 12/14/20 Status: Ordered Medication Dispense Status: Completed Total Allowed Fills: 1 Fills Dispensed: 0 Ventolin HFA 108 mcg/inh inhalation aerosol with adapter INHALE 2 PUFFS EVERY 4 TO 6 HOURS NEEDED FOR SHORTNESS OF BREATH OR FOR WHEEZE Start Date: 08/26/24 Status: Ordered Medication Dispense Status: Completed Total Allowed Fills: 1 Fills Dispensed: 0 Vitamin B2 = 100 mg, By Mouth, Daily, 0 Refills, Maintenance, 04/08/17 5:45:22 AM EDT Start Date: 04/08/17 Status: Ordered Medication Dispense Status: Completed Total Allowed Fills: 1 Fills Dispensed: 0 Xolair 150 mg subcutaneous injection 0 Refills, Maintenance, 08/26/24 4:11:00 AM EST, Partial fill upon patient request if the prescription is for a schedule II opioid drug. Start Date: 08/26/24 Status: Ordered Medication Dispense Status: Completed Total Allowed Fills: 1 Fills Dispensed: 0 zolpidem 10 mg oral tablet TAKE 1 TABLET BY MOUTH EVERY DAY AT BEDTIME NEEDED FOR SLEEP Start Date: 08/26/24 Status: Ordered Medication Dispense Status: Completed Total Allowed Fills: 1 Fills Dispensed: 0 Problem List Condition Confirmation Course Effective Dates Status Health St [facility] Informant Dysplasia of Vagina Confirmed Active History of cervical cancer Confirmed Active LSIL Confirmed Active Classic migraine Confirmed Active Obese class II Confirmed Active Social History Social History Type Response Smoking Status Never (less than 100 in lifetime) entered on: 06/05/25 Sexual Orientation Self described orien tation: ; Straight or heterosexual Sex Sex Representation Female (finding) Patient Care team information Care Team Personnel Name: Christ Goodwin MD Position: Reference Physician Member Role: PCP Address: [address] [place] [address] Telecom: Name: Shira Crain LPN Position: S RN Member Role: Primary Care Nurse Name: Maria Eugenia Daniel RN Position: S Onco RN Member Role: Primary Care Nurse Care Team Related Persons Name: BISHNU CASTILLO Insurance Providers Guarantor name: ELISHA DIMPLE REED BUILD Plan Information #: 1 Payer: [employer] Payer Identifier: NA Member Number: [id number] Group Number: [id number] Subscriber Identifier: NA Relationship to Subscriber: self Coverage Type: NA Coverage Verification Date: NA Telecom: NA Address: NA
--- NOTE | 2025-07-28 13:45 | A.OFFVIS_ITS ---
Vital Signs 07/28/25 13:46 Height 5 ft 4 in Weight 194 lb BMI 33.3 BP 126/80 Blood Pressure Location Rt brachial Position Sitting Pulse 72 Pulse Source Pulse Oximeter Pulse Oximetry (%) 97 Oxygen Delivery Method Room Air Intake Visit Reasons: 6m follow up Intake Note: Patient presents follow up for migraines. Accompanied by: Self / Same As Patient Allergies hazelnut Allergy (Severe, Verified 07/28/25 13:46) Itching, coughing, and hives Penicillins (PENICILLINS) Allergy (Severe, Verified 07/28/25 13:46) HIVES birch Allergy (Intermediate, Verified 07/28/25 13:46) Itching Iodinated Contrast Media (IV CONTRAST) Allergy (Intermediate, Verified 07/28/25 13:46) HIVES peanut (PEANUTS) Allergy (Intermediate, Verified 07/28/25 13:46) HIVES shellfish derived (SHELLFISH DERIVED) Allergy (Intermediate, Verified 07/28/25 13:46) HIVES almond Allergy (Mild, Verified 07/28/25 13:46) Hives cat dander Allergy (Mild, Verified 07/28/25 13:46) cough/hives dog dander Allergy (Mild, Verified 07/28/25 13:46) cough/hives pollen extracts Allergy (Mild, Verified 07/28/25 13:46) runny nose, itchy eyes Medication List - Last Reconciled 07/28/25 by GIL Guerrero albuterol sulfate 90 mcg/actuation 2 puffs inhalation Q4-6H PRN atorvastatin 20 mg PO DAILY baclofen 20 mg PO BID 30 days bimatoprost 0.01% (Lumigan) 1 drp ophthalmic (eye) BEDTIME brimonidine 0.2% 1 drp ophthalmic (eye) BID bupropion HCl XL 300 mg PO DAILY cetirizine (Zyrtec) 10 mg PO DAILY PRN cholecalciferol (vitamin D3) 50 mcg PO DAILY clonazepam (Klonopin) 1 mg PO BID PRN cyanocobalamin (vitamin B-12) ER 1,000 mcg PO DAILY cyclosporine 0.05% (Restasis) 1 drp ophthalmic (eye) Q12H docusate sodium 100 mg PO BID PRN dorzolamide-timolol (PF) 2-0.5 % (Cosopt (PF)) 1 drp ophthalmic (eye) BID epinephrine 0.3 mg IM ONCE PRN famotidine 20 mg PO BEDTIME fluticasone propionate 50 mcg/actuation 1 spray intranasal DAILY PRN gabapentin 800 mg PO Q8H 30 days ketotifen fumarate 0.025%(0.035%) 1 - 2 drps ophthalmic (eye) BID pnravn-wbahoblc-avpjblq (pork) 36,000-114,000- 180,000 unit (Creon) 1 cap PO DAILY@0800 mometasone 100 mcg/actuation (Asmanex HFA) 1 puff inhalation BID PRN montelukast (Singulair) 10 mg PO BEDTIME naloxone 4 mg/actuation (Narcan) 4 mg intranasal Q2M PRN omalizumab (Xolair) 150 mg subcut Q4W ondansetron 4 mg PO Q8H PRN pantoprazole 40 mg PO QAM riboflavin (vitamin B2) 400 mg PO DAILY 90 days rimegepant (Nurtec ODT) 75 mg PO ONCE PRN 30 days MDD 1 tab [SHOWER CHAIR As directed] tramadol 50 mg PO TID 90 days walker Folding Front wheeled walker zolpidem (Ambien) 10 mg PO BEDTIME PRN 30 days HPI Comments Details: 07/28/2025, HPI: 55-yr-old female presents for f/u for vertigo and migraine. Her recent spine procedure had to be rescheduled as the anesthesiologist had to leave for an emergency. This is causing her additional stress, as this needed an insurance appeal to be scheduled- but it now needs to be rescheduled. She saw her OB- who was not comfortable starting her on HRT d/t all of her health issues. She also underwent a biopsy of her cervix, as she states they saw a black spot on her cervix in the setting of h/o CA of the cervix. She continues to have brief epsiodes of intense room spinning dizziness, sometimes triggered by rolling over in bed, or when walking in the supermarket. This occurs 3-4 times per month. Using OTC dramamine 25mg prn with some effect. She endorses lightheadedness. She states the dizziness is not a/w migraine. She denies ear pain, recent ear infections. She reports her migarines are better during the colder weather- now having 5-6 migraine days per month. Using light blocking curtains in her bedroom is helpful. She states her migraine resolves within 30 minutes She also reports that a couple of months ago, she was sleeping when she started to wake up, but could not move her arms and legs. She discussed this with her psychiatric provider, who advised her to discuss with me. She endorses anxiety, stress, and ruminating thoughts. She denies alcohol use. She has never had an episode of sleep paralysis. 01/27/2025, HPI: The patient is a 54-year-old left-handed female presenting with migraine management and evaluation of vertigo and sleep difficulties. The patient reports experiencing migraines approximately three to four times a month, which have been consistent over the past several months. She has been taking magnesium supplements to aid sleep and migraine, but they cause gastrointestinal discomfort, leading her to pause the intake periodically. She has been using Nurtec for acute migraine management, which she finds effective. The patient has been experiencing vertigo for the past three weeks, describing it as a sensation of imbalance, particularly when rolling over in bed. Dramamine, non drowsy, has been used for symptomatic relief, although it provides only partial relief. The vertigo sometimes correlates with her migraines, but Nurtec does not alleviate the dizziness. The patient also reports tinnitus, which has been a long-standing issue. Endorses increased allergy symptoms. Uses Zyrtec consistently. Denies recent URI or sinus infections. Denies ear pain. The patient has a history of elevated blood pressure, noted at 160/90 mmHg during this visit. She reports waking up with right kidney pain, attributed to her history of kidney stones. She denies chest pain or shortness of breath. Review of Systems - Neurological: Reports vertigo for three weeks, tinnitus for several years. Denies recent ear infections or upper respiratory infections. - Cardiovascular: Reports elevated blood pressure. Denies chest pain or shortness of breath. - Genitourinary: Reports right kidney pain due to kidney stones. - Gastrointestinal: Reports gastrointestinal discomfort with magnesium supplements. Results - Labs: Previous high white blood cell count, recent labs improved. 08/20/2024, previous HPI: Pt reports in September she is scheduled to undergo cystoscopy for hydronephrosis, with urethral stricture, nephrolithiasis, in setting of history of pelvic radiation. HST- did not show sleep apnea, w/ O2 matt 85% w/ SpO2 < 88% x's 0.5 min, and SpO2 < 90% x's 27 minutes. Pt declined f/u in-lab PSG, as she has too many medical appointments going on at this time. She does note that she has been experiencing increased cold intolerance. States even when her heat is set to 75, she will have to bundle under blankets because she is shivering. Pt reports her migraines are the same. In the winter, she has 3-4 migraine attacks in the winter, and 5-6 attacks in the summer. She tried the Mag Oxide, however this caused facial redness and GI upset. She resumed taking Mag Chloride 520mg (62 mg of elemental magnesium). She did increased dose of Riboflavin to 400mg qam- tolerating that ok. She did not try the Propranolol ER as she was worried about taking too many medications. She tried Sumatriptan but this caused palpitations and strange feeling. 01/16/24, Initial HPI: Pt reports she has had migraines since she was 19-20 yrs old w/o known preceding causes. She comes to establish care w/ new neurologist since her previous neurologist, Yeison PIERCE retired a few years ago. Though has been seen by [facility] neuro since. PMH and ROS are notable for:? Musculoskeletal disorders or injury: OA, neck/back/joint pain, h/o T10-T11 compression fx, right hip THR. fibromyalgia Cramps: sometimes History of concussion/head injury: was struck in the head by a loose baseball at age 3 months- was hospitalized for several days- but denies residual affects. Mood d/o: Anxiety, Depression, Bilpolar d/o Respiratory d/o: Asthma CV disease: HLD- varies, has lipids checked q 4 months : recurrent kidney stones GI d/o: Constipation or Diarhea- f/b GI [employer]: Cervical cancer at age 27 (in 1997)- was tx'd 1 ovary sparing hysterectomy and radiation tx. Pertinent denials include: History of concussion/head injury, Sleep d/o, Respiratory d/o, Clotting or hematology d/o, Endocrine or metabolic d/o, History of seizure, syncope, or drop attacks Family history of migraine or other headache disorder Lifestyle considerations: Sleep routine: Usual bedtime: 1-2am and wake-up time: 9-10am Sleep difficulties: Endorses: some difficulty falling asleep or maintaining sleep, Fatigue, Leg Cramps Caffeine use: none Substance use: none Exercise:?trying to exercise, is doing home PT exercises Employment:?disabled Headache questionnaire:? Typical headache characteristics: Prodrome symptoms: none Aura: briefly sees wiggly things, feels dizzy, black dots Pain intensity: severe Location, quality, characteristics: May start mid-frontal or left temporal, and alida retro-orbital Associated symptoms: photophobia, phonophobia, osmophobia, allodynia, nausea, vomiting- sometimes when severe, spinning dizziness, lightheadedness, fatigue, cognitive difficulties, activity intoelrence, standing up worsens headcahe and associated s/s. alida jaw tingling- at times. Postdrome: sometimes lingers into the next Triggers: poor fluid intake,hunger, salty foods, sounds, odors- certain perfumes, too much sun or heat, stress Time of day: No specific time of day Duration and Frequency: 5 migraine attacks per month- which last 1-2 days. How does headache impact your life? Makes it difficult to do her daily activities Current acute medication use/interventions: Naratriptan 2.5mg - causes palpitations. Current preventative medication use: Riboflavin 100mg tid Non-pharmacological interventions: Ice and rest, uses distraction techniques. PFSH Medical History Renal calculi Insomnia Osteoarthritis of multiple joints Hydronephrosis, bilateral Osteopenia Sacroiliac joint pain Encounter for medication monitoring Palpitations Gastritis Fibromyalgia Hx of small bowel obstruction Abdominal pain Obesity (BMI 30-39.9) Bipolar depression Vitamin D deficiency Migraine Allergic rhinitis Mild intermittent asthma without complication Pure hypercholesterolemia Primary osteoarthritis of right hip Surgical History S/P ureteral stent placement History of total hip arthroplasty (~08/15/23) S/P cystourethroscopy with dilation of urethral stricture (~07/21/20) History of esophagogastroduodenoscopy (EGD) Hx of unilateral oophorectomy Hx of colonoscopy Hx of cholecystectomy Hx of cystoscopy History of extraction of renal calculus History of carpal tunnel surgery History of hand surgery History of hysterectomy Family History Father Kidney problem Diabetes Mother Kidney malignancy Diabetes Brother Asthma Diabetes Social History Household Members: Significant Other Housing: House Are you a primary vp care management to a significant other at home: No Do you presently have visiting nurse or other home services: No Alcohol intake: never Comment: counts correct Patient Tobacco Use Status: Never used Tobacco e-Cigarette/Vaping Use: Never Used Second Hand Smoke Exposure: No Advance Directives Date on File: 08/08/23 service: No Current occupational status: disabled Cognitive needs: No Hearing needs: No Vision needs: Yes Physical Exam Vital Signs: Last Vital Signs Pulse 72 07/28/25 13:46 BP 126/80 07/28/25 13:46 Pulse Ox 97 07/28/25 13:46 Oxygen Delivery Method Room Air 07/28/25 13:46 BMI result Body Mass Index 33.3 Const Orientation/consciousness: patient oriented x3 HEENT Head: Yes normocephalic Ears: mastoids normal, no periauricular adenopathy and TM abnormal wth effusion serous bilateral Resp Effort & Inspection: normal respiratory effort and able to speak in complete sentences Neuro General: patient oriented x3 Cranial nerves: Yes CN's II-XII intact bilaterally Cognition (Neuro): normal cognition Gait exam (Neuro): Normal gait present Motor exam (neuro): 5/5 motor strength present throughout Psych Appearance: grossly normal Mental Status: mental status grossly normal Speech and movement: Normal speech and movement present Affect: normal affect Attitude: cooperative Thought process: Normal thought process present Assessment & Plan Assessment & Plan (1) Migraine with aura: Code(s): G43.109 - Migraine with aura, not intractable, without status migrainosus Category: Medical Qualifiers: Intractability: not intractable Status migrainosus presence: without status migrainosus Qualified Code(s): G43.109 - Migraine with aura, not intractable, without status migrainosus (2) Benign paroxysmal vertigo, unspecified ear: Code(s): H81.10 - Benign paroxysmal vertigo, unspecified ear Category: Medical Qualifiers: Laterality: unspecified laterality Qualified Code(s): H81.10 - Benign paroxysmal vertigo, unspecified ear (3) Fatigue: Code(s): R53.83 - Other fatigue Category: Medical Qualifiers: Fatigue type: unspecified Qualified Code(s): R53.83 - Other fatigue (4) Sleep difficulties: Code(s): G47.9 - Sleep disorder, unspecified Category: Medical Plan For sleep: Reviewed common reasons for sleep paralysis. Discussed simple strategies to reduce risk for sleep paralysis recurrence, such as establishing a bedtime relaxation routine, continuing to avoid alcohol or caffeine later in the day. Previous HST- no current evidence of sleep apnea, however SpO2 was under 90% for 27 minutes of study time, though under 88% for under 1 minute of study time. If sleep worsens, consider in-lab sleep study For intermittent vertigo: Continue prn non drowsy Dramamine Continue Zyrtec 10 mg daily May use meclizine 25 mg 2-3 times per day as needed For overall headache management: * Optimize good self-care, including but not limited to maintaining a healthy diet, adequate fluid intake, adequate sleep, and engaging in regular physical activity. * Track headaches, especially after any treatment regimen changes. Migraine [email or web address] is one of many headache tracking apps. * Continue vitamin B12 supplement For acute headache treatment: It is important to take acute medications at the first sign of headache. Continue Zofran 4mg prn N/V/migraine. Continue Rimegepant ODT (Nurtec ODT) 75mg, 1 tab at onset of headache. * Max of 1 Nurtec tab (75mg) per 24 hours. * May adjunct with OTC Tylenol 650mg q 4 hours, Ibuprofen 600mg q 6 hours, or Naproxen 440mg q 12 hrs prn. Previous acute migraine medication trials: Excedrin. Naratriptan- causes palpitations. Sumatriptan-caused palpitations and strange sensations. Acute migraine medication contraindications: None at this time For headache prevention medication: Preventative medications should be taken routinely as prescribed for best effect, it may take several weeks for full effect to take effect. Continue Riboflavin 400 mg daily in the morning Discontinue Magnesium chloride-causing GI upset Hold Propranolol Er 60mg qhs and propranolol IR 10 mg p.o. b.i.d. orders- patient continues to be hesitant to trial. Previous migraine prevention medication trials: Mag Glycinate caused GI upset. Migraine prevention medication contraindications: Beta-blockers d/t asthma dx. Will follow-up upon review of above and patient to follow-up in clinic in 6 months or sooner prn. Medications: New meclizine 25 mg PO BID-TID PRN 30 tabs 3RF dizziness 30 days Coding Level of Care Code Est Pt Level 4 (29045) Diagnoses Migraine with aura and without status migrainosus, not intractable G43.109 Intractability: not intractable Status migrainosus presence: without status migrainosus Benign paroxysmal vertigo, unspecified laterality H81.10 Laterality: unspecified laterality Fatigue, unspecified type R53.83 Fatigue type: unspecified Sleep difficulties G47.9
[2025-07-28 13:46] VITALS: BP 126/80; PULSE 72; O2SAT 97; BMI 33.3
--- OUTSIDE RECORDS SUMMARY | 2025-07-28 14:55 | XMS_ITS | Clinical Summary ---
Author Organization [facility] Address [address] [place] [address] Phone Care Team Providers Care Hand Roller Name Role Phone Christ Silva MD Primary Care Provider [phone] Allergies No known active allergies Social History [...] PM EDT Narrative 12/20/2020 7:17 PM EDT [facility] Diagnostic Imaging Department [address] [place], [place] [id number] Patient: ELISHA MILLSO.B./Age/Sex: 1970 - 50 - F Unit#: [id number] Location/Status: SPDIMAM/REG CLI [facility]em[facility] Order[facility] Physician: CHRIST SILVA MD Leroy Screening Digital - 12/20/20 - 1508 History: Bilateral breast cancer screening. Technique: Digital mammography. Conventional CC and MLO projections with tomosynthesis MLO views and computer aided detection Findings: Comparison:[facility] 08/21/2019, dating back to 03/09/2011. Breast tissue is mostly fatty replaced (category a density) bilaterally (as calculated by [employer] software). There are benign calcifications on the right. There is no suspicious group of microcalcification, no suspicious mass, architectural distortion or suspicious asymmetry. Impression: No evidence of malignancy. BIRADS category 2, benign findings, 3342F 35709, [id number] Note: Patient information entered into a reminder system with a target due date for the next mammogram; PQRI II 7064F Dictating Physician: MIKEY ROMAN MD Electronically Signed by: MIKEY ROMAN MD Dic Date/Time: 12/20/201916 Sign date/Time: 12/20/201916 Procedure Note Mikey Roman MD - 07/25/2022 [facility] Diagnostic Imaging Department [address] [place] [address] Patient: ELISHA MILLS.O.B./Age/Sex: 1970 - 50 - F Unit#: [id number] [facility] CLI Mnemonic/Ordering Site: [facility] Ordering Physician: CHRIST SILVA MD Leroy Screening Digital - 12/20/20 - 1508 History: Bilateral breast cancer screening. Technique: Digital mammography. Conventional CC and MLO projections with tomosynthesis MLO views and computer aided detection Findings: Comparison:[facility] 08/21/2019, dating back to 03/09/2011. Breast tissue is mostly fatty replaced (category a density) bilaterally(as calculated by [employer] software). There are benign calcificationson the right. There is no suspicious group of microcalcification, no suspiciousmass, architectural distortion or suspicious asymmetry. Impression: No evidence of malignancy. BIRADS category 2, benign findings, 3342F [id number], [id number] Note: Patient information entered into a reminder system with a targetdue date for the next mammogram; PQRI II 7068F Dictating Physician: MIKEY ROMAN MD Electronically Signed by: MIKEY ROMAN MD Dic Date/Time: 12/20/201916 Sign date/Time: 12/20/201916 Christ Silva MD IMG BI PROCEDURES Final Resu lt from Last 3 Months or Most Recently Relevant to Health Maintenance Insurance [facility] [place] [address] MEDICAID - [place] Care Teams Hand Roller Relationship Specialty Start Date End Date Christ Silva MD [address] [place] [address] [address] [place] PCP - General Internal Medicine 07/01/24
--- OUTSIDE RECORDS SUMMARY | 2025-07-28 14:55 | XMS_ITS | Encounter Summary ---
Author Organization [email or web address] Address [address] [place] [address] Care Team Providers Care Rehabilitation Nurse Name Role Phone Christ Goodwin MD Primary Care Provider Encounter Details Date Type Department Care Team (Late st Contact Info) Description 01/30/[address] [facility] - Main Lab [address] [facility] [employer] [place] [address] Ajay Leonard PA [address] [place] [address] Urinary tract infection, site not [...] Urine No growth 01/31/2025 12:[address] [facility] Urine Urine specimen obtained by clean catch procedure / Unknown 01/30/2025 01/30/2025 5:39 PM EDT us Ajay [facility]ER[facility] MICROBIOLOGY - GENERAL ORD ERABLES Final Result [facility] [address] [place] [address], documented in this encounter Visit Diagnoses Diagnosis Urinary tract infection, site not specified documented in this encounter Care Teams Rehabilitation Nurse Relationship Specialty Start Date End Date Christ Goodwin MD [address] [place] [address] Dr [address] [place] PCP - General Internal Medicine 07/01/24 documented as of this encounter
== END 2025-07-28 15:28 | disposition home or self-care (01) ==
LOC: HO.HSMS 13:44
PROVIDERS: PCP Internal Medicine; Visit Provider Nurse Practitioner Family
DX: G43.109 Migraine with aura, not intractable, without status migrainosus (principal); H81.10 Benign paroxysmal vertigo, unspecified ear; R53.83 Other fatigue; G47.9 Sleep disorder, unspecified
CPT/HCPCS: 99214

== ENCOUNTER → 2025-07-28 13:43 | Outpatient (BNVA) | payer OTHER, SELFPAY | PROVIDERS: PCP Internal Medicine; Visit Provider Nurse Practitioner Family | DX: G43.109 Migraine with aura, not intractable, without status migrainosus (principal); H81.10 Benign paroxysmal vertigo, unspecified ear; R53.83 Other fatigue; G47.9 Sleep disorder, unspecified | CPT/HCPCS: 99212 ==